=== PATIENT | female | born 1955 | race Caucasian/White ===

== ENCOUNTER 2017-04-26 10:00 | Outpatient (CLI) | payer BC | END 2017-04-26 10:24 | disposition home or self-care (01) | LOC: SLEEP 10:00 | PROVIDERS: ATTEND Nurse Practitioner Family | DX: G47.10 Hypersomnia, unspecified (principal); R53.83 Other fatigue; R43.9 Unspecified disturbances of smell and taste ==

== ENCOUNTER → 2017-04-27 | Outpatient (CLI) | payer BC ==
[~2017-04-27] MED LIST: CATHETER FLUSH 10 ML SYR IV PRN; IOHEXOL 350 MG/ML 100 ML (OMNIPAQUE 350) VIAL IV ONE; NS 100 ML (IVPB) BAG IV ONE
--- NOTE | 2017-04-27 09:37 | Diagnostic Imaging Report ---
Clinical indication: Patient has been smelling cigarette smoke x3 months. Patient and her family do not smoke. No history of trauma or surgery. Exam: Head CT performed without and with 80 cc of Omnipaque 350 IV contrast. Comparison: None. Findings: There is no evidence of acute cerebral infarct, intracranial hemorrhage, or gross mass effect. There is no abnormal IV contrast enhancement. There is normal smalls-white matter distinction. The brain parenchymal volume appears appropriate for patient's age. There is no significant midline shift or herniation. The com[place] of Michelle vascular structures show no gross abnormality as visualized. There is no evidence of hydrocephalus. The basal cisterns are unremarkable. The skull, extracranial soft tissue, and orbits are unremarkable. The paranasal sinuses are unremarkable. Impression: Unremarkable CT scan of the brain. There is no evidence of anterior skull base mass. Dictated by: Dictated on workstation # [id number]
== END ==
LOC: RAD 08:34
PROVIDERS: ATTEND Internal Medicine Critical Care Medicine
DX: R43.9 Unspecified disturbances of smell and taste (principal)
CPT/HCPCS: 70470

== ENCOUNTER → 2017-04-29 | Outpatient (CLI) | payer BC | LOC: RT 07:38 | PROVIDERS: ATTEND Internal Medicine Critical Care Medicine | DX: R43.9 Unspecified disturbances of smell and taste (principal); R53.83 Other fatigue | CPT/HCPCS: 95819 ==

== ENCOUNTER → 2017-05-02 | Outpatient (CLI) | payer BC ==
[~2017-05-02] MED LIST changes: -CATHETER FLUSH 10 ML SYR IV PRN; -IOHEXOL 350 MG/ML 100 ML (OMNIPAQUE 350) VIAL IV ONE; -NS 100 ML (IVPB) BAG IV ONE; +RT-ALBUTEROL SULF 2.5 MG/3 ML PRE-MIX VIAL IH ONE
== END ==
LOC: RT 07:47
PROVIDERS: ATTEND Internal Medicine Critical Care Medicine
DX: R06.00 Dyspnea, unspecified (principal); R53.83 Other fatigue; R43.9 Unspecified disturbances of smell and taste
CPT/HCPCS: 94060; 94640; 94726; 94729

== ENCOUNTER → 2017-06-07 | Outpatient (CLI) | payer BC ==
[~2017-06-07] MED LIST changes: +CATHETER FLUSH 10 ML SYR IV PRN; +IOHEXOL 350 MG/ML 100 ML (OMNIPAQUE 350) VIAL IV ONE; +NS 100 ML (IVPB) BAG IV ONE; -RT-ALBUTEROL SULF 2.5 MG/3 ML PRE-MIX VIAL IH ONE
--- NOTE | 2017-06-07 15:52 | Diagnostic Imaging Report ---
INDICATION: Olfactory hallucination. For the past approximately 7-8 weeks, smells cigarette smoke at least 6 times per day. TECHNIQUE: CT imaging of the sinuses both before and after the administration of intravenous contrast. FINDINGS: There is mild mucosal thickening along the floor of bilateral maxillary sinuses. Maximum thickness up to 5 mm. No air-fluid level. Trace mucosal thickening of the left aspect of sphenoid sinus. Minimal mucosal thickening of a few ethmoid air cells. There is mild rightward nasal septal deviation. Ostiomeatal complexes unobstructed. No suggestion for abnormal soft tissue mass within the nasal cavity. The orbital nunes including floors appear unremarkable. Orbits and retro-orbital structures appear symmetric. The cribriform plate and floor of the frontal calvarium appears unremarkable. Frontal sinuses are hypoplastic but overall clear. No definitive evidence for abnormal areas of enhancement. IMPRESSION: Mild mucosal thickening most pronounced involving the floor of bilateral maxillary sinuses. Trace areas of mucosal thickening in sphenoid sinus and ethmoid air cells. Otherwise relatively unremarkable CT examination of the sinus. No suggestion for abnormal areas of enhancement including along the floor of the frontal region intracranially. Dictated by: Dictated on workstation # [id number]
== END ==
LOC: RAD 11:30
PROVIDERS: ATTEND Family Medicine
DX: R44.2 Other hallucinations (principal)
CPT/HCPCS: 70488

== ENCOUNTER → 2018-05-16 | Outpatient (CLI) | payer BC ==
--- NOTE | 2018-05-16 12:00 | Diagnostic Imaging Report ---
INDICATION: Routine screening. COMPARISON: Comparison is made with prior mammograms from 05/14/2015 and 04/05/2014. TECHNIQUE: 2D and 3D bilateral screening mammography was performed with computer-aided detection (CAD) system. FINDINGS: Scattered fibroglandular densities are identified bilaterally. Bilateral benign nodular densities appear stable. No new mass or malignant appearing microcalcifications are seen. The axillae are unremarkable. IMPRESSION: No mammographic features suspicious for malignancy are identified. ACR BI-RADS Category 2: Benign findings. Result letter will be mailed to the patient. Note: At least 10% of breast cancer is not imaged by mammography. Dictated by: Dictated on workstation # [id number]
== END ==
LOC: RAD 07:56
PROVIDERS: ATTEND Family Medicine
DX: Z12.31 Encounter for screening mammogram for malignant neoplasm of breast (principal)
CPT/HCPCS: 77067

== ENCOUNTER 2019-03-01 05:57 | Outpatient (CLI) | payer BC ==
[~2019-03-01] VITALS: Ht 172.7 cm; Wt 102.1 kg
[2019-03-01] MEDS ORDERED: OMEG-141 PO (09:53)
[2019-03-01] MEDS ORDERED: LISI10TA2 PO (09:53)
[2019-03-01] MEDS ORDERED: ESCI20TA45 PO (09:53)
[2019-03-01] MEDS ORDERED: ALPR0.5T7 PO (09:53)
[2019-03-01] MEDS ORDERED: CALC600T12 PO (09:53)
[2019-03-01] MEDS ORDERED: CHOL10003 PO (09:53)
== END 2019-03-01 10:01 | disposition home or self-care (01) ==
LOC: PREOP 05:57
PROVIDERS: ATTEND Specialist
DX: Z01.818 Encounter for other preprocedural examination (principal)

== ENCOUNTER 2019-03-02 10:12 | Day surgery (SDC) | payer BC ==
[~2019-03-02] VITALS: Ht 172.7 cm; Wt 102.1 kg
[~2019-03-02 10:12] MED LIST changes: +ALPR0.5T7 PO; +CALC600T12 PO; -CATHETER FLUSH 10 ML SYR IV PRN; +CHOL10003 PO; +ESCI20TA45 PO; -IOHEXOL 350 MG/ML 100 ML (OMNIPAQUE 350) VIAL IV ONE; +LISI10TA2 PO; -NS 100 ML (IVPB) BAG IV ONE; +OMEG-141 PO
--- OUTSIDE RECORDS SUMMARY | 2019-03-02 10:19 | XMS REPORT | CCD ---
Author Author Verona Olivares Organization Verona Olivares MD, [facility] Address [address] [place] [address] Phone Care Team Providers Care Plastic Tubing Insulation Supervisor Name Role Phone Verona Olivares PP Unavailable CCM Unavailable Summary Purpose Interface Exchange Insurance Providers Payer name Policy type / Coverage type Covered alliance party ID Effective Begin Date Effective End Date [employer] [id number] Unknown Family history Mother Diagnosis Age At Onset No Family Disease Entered N/A Son Diagnosis Age At Onset No Family Disease Entered N/A Brother Diagnosis Age At Onset No Family Disease Entered N/A Sister Diagnosis Age At Onset No Family Disease Entered N/A Daughter Diagnosis Age At Onset No Family Disease Entered N/A Brother Diagnosis Age At Onset No Family Disease Entered N/A Father Diagnosis Age At Onset No Family Disease Entered N/A Social History Social History Element Codes Description Effective Dates Marital status Unknown 10/27/2011 Number of children Unknown 2 10/27/2011 Employment Unknown Currently employed 10/27/[address]: 032874140 Never smoker 10/27/[address]: 182144097 Never drinks alcohol 10/27/2011 Has the patient ever used illegal drugs? Unknown Has never used illegal drugs 10/27/2011 Allergies, Adverse Reactions, Alerts Substance Reaction Codes Entered Date Inactivated Date Status * NO KNOWN FOOD ALLERGIES Unknown 07/12/2012 No Inactive Date Active KENZIE INHIBITORS cough Unknown 06/07/2012 No Inactive Date Active Past Medical History Illness Codes Condition Status Onset Date Resolved Date Essential (primary) hypertension ICD-9: 401.1 ICD-10: I10 Active 05/11/2018 Unknown Major depressive disorder, recurrent, moderate ICD-9: 296.32 ICD-10: F33.1 Active 05/11/2018 Unknown Other acute sinusitis ICD-9: 461.8 ICD-10: J01.80 Active 02/05/2019 Unknown Other allergic rhinitis ICD-9: 477.8 ICD-10: J30.89 Active 09/26/2018 Unknown Acute upper respiratory infection, unspecified ICD-9: 465.9 ICD-10: J06.9 Active 08/28/2015 Unknown Cough ICD-9: 786.2 ICD-10: R05 Active 07/07/2016 Unknown Other insomnia ICD-9: 327.09 ICD-10: G47.09 Active 10/31/2018 Unknown Acute laryngopharyngitis ICD-9: 465.0 ICD-10: J06.0 Active 09/26/2018 Unknown Encounter for immunization ICD-9: V05.9 ICD-10: Z23 Active 06/27/2018 Unknown Generalized anxiety disorder ICD-9: 300.00 ICD-10: F41.1 Active 05/11/2018 Unknown Acute recurrent maxillary sinusitis ICD-9: 461.0 ICD-10: J01.01 Active 03/08/2017 Unknown Allergic rhinitis due to pollen ICD-9: 477.9 ICD-10: J30.1 Active 03/08/2017 Unknown Other hallucinations ICD-9: 780.1 ICD-10: R44.2 Active 03/08/2017 Unknown Cellulitis of right upper limb ICD-9: 682.3 ICD-10: L03.113 Active 09/05/2016 Unknown VACCIN FOR INFLUENZA ICD-9: V04.81 ICD-10: Z23 Active 07/29/2016 Unknown Fever, unspecified ICD -9: 780.60 ICD-10: R50.9 Active 07/07/2016 Unknown Pain, unspecified ICD- 9: 780.96 ICD-10: R52 Active 07/07/2016 Unknown Rash and other nonspecific skin eruption ICD-9: 782.1 ICD-10: R21 Active 01/13/2016 Unknown Bicipital tendinitis, left shoulder ICD-9: 726.12 ICD-10: M75.22 Active 11/16/2015 Unknown Pain in left shoulder ICD-9: 719.41 ICD-10: M25.512 Active 11/16/2015 Unknown Pain in right shoulder ICD-9: 719.41 ICD-10: M25.511 Active 11/16/2015 Unknown Epigastric pain ICD-9 : 789.06 ICD-10: R10.13 Active 08/28/2015 Unknown Other screening mammogram ICD-9: V76.12 Active 05/13/2015 Unknown ACUTE URI ICD-9: 465.9 Active 01/27/2015 Unknown ALLERGIC RHINITIS ICD- 9: 477.9 Active 01/27/2015 Unknown Left knee pain ICD-9: 719.46 Active 01/27/2015 Unknown Biceps tendinitis ICD- 9: 726.12 Active 08/05/2014 Unknown Elevated blood pressure (not hypertension) ICD-9: 796.2 Active 08/05/2014 Unknown Wrist pain, acute ICD- 9: 719.43 Active 08/05/2014 Unknown Acute maxillary sinusitis ICD-9: 461.0 Active 05/02/2014 Unknown ACUTE BRONCHITIS ICD-9 : 466.0 Active 07/17/2013 Unknown OBESITY ICD-9: 278.00 Active 10/30/2012 Unknown Hyperlipidemia Unknown Active 07/12/2012 Unknown HYPERLIPIDEMIA ICD-9: 272.4 Active 07/12/2012 Unknown Depression Unknown Active 06/07/2012 Unknown DEPRESSIVE DISORDER NEC ICD-9: 311 Active 06/07/2012 Unknown Palpitations ICD-9: 785.1 Active 06/07/2012 Unknown COUGH ICD-9: 786.2 Active 12/01/2011 Unknown Hypertension Unknown Active 11/09/2011 Unknown Changing mole ICD-9: 216.9 Active 11/09/2011 Unknown ESSENTIAL HYPERTENSION ICD-9: 401.9 Active 11/09/2011 Unknown Insomnia Unknown Active 10/27/2011 Unknown INSOMNIA IN OTHER DIS ICD-9: 327.01 Active 10/27/2011 Unknown Restless leg syndrome ICD-9: 333.94 Active 10/27/2011 Unknown Problems Condition Codes Effective Dates Condition Status Essential (primary) hypertension ICD-9: 401.1 ICD-10: I10 05/11/2018 Active Major depressive disorder, recurrent, moderate ICD-9: 296.32 ICD-10: F33.1 05/11/2018 Active Other acute sinusitis ICD-9: 461.8 ICD-10: J01.80 02/05/2019 Active Other allergic rhinitis ICD-9: 477.8 ICD-10: J30.89 09/26/2018 Active Acute upper respiratory infection, unspecified ICD-9: 465.9 ICD-10: J06.9 08/28/2015 Active Cough ICD-9: 786.2 ICD-10: R05 07/07/2016 Active Other insomnia ICD-9: 327.09 ICD-10: G47.09 10/31/2018 Active Acute laryngopharyngitis ICD-9: 465.0 ICD-10: J06.0 09/26/2018 Active Encounter for immunization ICD-9: V05.9 ICD-10: Z23 06/27/2018 Active Generalized anxiety disorder ICD-9: 300.00 ICD-10: F41.1 05/11/2018 Active Acute recurrent maxillary sinusitis ICD-9: 461.0 ICD-10: J01.01 03/08/2017 Active Allergic rhinitis due to pollen ICD-9: 477.9 ICD-10: J30.1 03/08/2017 Active Other hallucinations ICD-9: 780.1 ICD-10: R44.2 03/08/2017 Active Cellulitis of right upper limb ICD-9: 682.3 ICD-10: L03.113 09/05/2016 Active VACCIN FOR INFLUENZA ICD-9: V04.81 ICD-10: Z23 07/29/2016 Active Fever, unspecified ICD -9: 780.60 ICD-10: R50.9 07/07/2016 Active Pain, unspecified ICD- 9: 780.96 ICD-10: R52 07/07/2016 Active Rash and other nonspecific skin eruption ICD-9: 782.1 ICD-10: R21 01/13/2016 Active Bicipital tendinitis, left shoulder ICD-9: 726.12 ICD-10: M75.22 11/16/2015 Active Pain in left shoulder ICD-9: 719.41 ICD-10: M25.512 11/16/2015 Active Pain in right shoulder ICD-9: 719.41 ICD-10: M25.511 11/16/2015 Active Epigastric pain ICD-9 : 789.06 ICD-10: R10.13 08/28/2015 Active Other screening mammogram ICD-9: V76.12 05/13/2015 Active ACUTE URI ICD-9: 465.9 01/27/2015 Active ALLERGIC RHINITIS ICD- 9: 477.9 01/27/2015 Active Left knee pain ICD-9: 719.46 01/27/2015 Active Biceps tendinitis ICD- 9: 726.12 08/05/2014 Active Elevated blood pressure (not hypertension) ICD-9: 796.2 08/05/2014 Active Wrist pain, acute ICD- 9: 719.43 08/05/2014 Active Acute maxillary sinusitis ICD-9: 461.0 05/02/2014 Active ACUTE BRONCHITIS ICD-9 : 466.0 07/17/2013 Active OBESITY ICD-9: 278.00 10/30/2012 Active Hyperlipidemia Unknown 07/12/2012 Active HYPERLIPIDEMIA ICD-9: 272.4 07/12/2012 Active Depression Unknown 06/07/2012 Active DEPRESSIVE DISORDER NEC ICD-9: 311 06/07/2012 Active Palpitations ICD-9: 785.1 06/07/2012 Active COUGH ICD-9: 786.2 12/01/2011 Active Hypertension Unknown 11/09/2011 Active Changing mole ICD-9: 216.9 11/09/2011 Active ESSENTIAL HYPERTENSION ICD-9: 401.9 11/09/2011 Active Insomnia Unknown 10/27/2011 Active INSOMNIA IN OTHER DIS ICD-9: 327.01 10/27/2011 Active Restless leg syndrome ICD-9: 333.94 10/27/2011 Active Medications Medication Codes Instructions Start Date Stop Date Status Fill Instructions lisinopril 20 mg tablet RxNorm: 550153 1 Tablet(s) PO daily 05/23/2020 Active amoxicillin 500 mg capsule RxNorm: 135472 1 Capsule(s) PO TID 02/05/2019 02/14/2019 Inactive escitalopram 20 mg tablet RxNorm: 742577 1 Tablet(s) PO QPM 09/201905/25/2019 Active alprazolam 0.5 mg tablet RxNorm: 915263 Tablet(s) TAKE ONE-HALF TO ONE TABLET BY MOUTH EVERY 8 HOURS NEEDED 01/16/2019 01/30/2019 Inactive prednisone 20 mg tablet RxNorm: 722467 2 Tablet(s) PO daily 12/10/2018 Inactive Augmentin 875 mg-125 mg tablet RxNorm: 803502 1 Tablet(s) PO BID 12/11/2018 12/17/2018 Inactive Augmentin 875 mg-125 mg tablet RxNorm: 806182 1 Tablet(s) PO BID 12/11/2018 12/10/2018 Inactive prednisone 20 mg tablet RxNorm: 934894 2 Tablet(s) PO daily 12/13/2018 Inactive promethazine 6.25 mg-codeine 10 mg/5 mL syrup RxNorm: 988655 5-10 Milliliter(s) PO Q6 PRN 11/24/2018 No Stop Date Active Zithromax Z-Tomás 250 mg tablet RxNorm: 177110 1 Tablet(s) PO UD 11/24/2018 11/28/2018 Inactive Kenalog 40 mg/mL suspension for injection RxNorm: 7295860 Milliliter(s) Inj 11/24/2018 11/24/2018 Inactive lisinopril 10 mg tablet RxNorm: 932714 1 Tablet(s) PO daily 02/28/2019 Inactive doxepin 10 mg capsule RxNorm: 7731292 1 Capsule(s) PO QHS as needed insomnia 10/31/2018 01/28/2019 Inactive Kenalog 40 mg/mL suspension for injection RxNorm: 1164251 Milliliter(s) Inj 09/26/2018 09/26/2018 Inactive Augmentin 875 mg-125 mg tablet RxNorm: 324580 1 Tablet(s) PO BID 09/26/2018 10/05/2018 Inactive escitalopram 20 mg tablet RxNorm: 060274 1 Tablet(s) PO QPM 08/201801/22/2019 Inactive lisinopril 10 mg tablet RxNorm: 712369 1 Tablet(s) PO daily 02/201811/13/2018 Inactive escitalopram 10 mg tablet RxNorm: 275572 1 Tablet(s) PO QPM 06/26/2018 Inactive lisinopril 10 mg tablet RxNorm: 386307 1 Tablet(s) PO daily 06/20/2018 Inactive alprazolam 0.5 mg tablet RxNorm: 378429 TAKE ONE-HALF TO ONE TABLET BY MOUTH EVERY 6 HOURS NEEDED 09/20/20172018 Inactive Augmentin 875 mg-125 mg tablet RxNorm: 377800 1 Tablet(s) PO BID 03/08/2017 03/17/2017 Inactive alprazolam 0.5 mg tablet RxNorm: 683658 Tablet(s) PO Q6 as needed TAKE ONE-HALF TO ONE TABLET BY MOUTH EVERY 6 HOURS NEEDED 12/24/2016 01/22/2017 Inactive triamcinolone acetonide 0.5 % topical cream RxNorm: 4803552 1 Application TOP BID 09/06/2016 09/15/2016 Inactive Levaquin 500 mg tablet RxNorm: 016459 1 Tablet(s) PO daily 07/14/2016 Inactive please call her when ready Levaquin 500 mg tablet RxNorm: 258828 1 Tablet(s) PO daily 07/07/2016 Inactive alprazolam 0.5 mg tablet RxNorm: 906176 Tablet(s) PO Q6 as needed TAKE ONE-HALF TO ONE TABLET BY MOUTH EVERY 6 HOURS NEEDED 04/26/2016 12/23/2016 Inactive Generic For:*XANAX 0.5 MG TABLET 05/16/2013 1:18:18 PM (Appended: Controlled substance eRx refill - RxReferenceNumber: [id number]) alprazolam 0.5 mg tablet RxNorm: 563663 Tablet(s) PO Q6 as needed TAKE ONE-HALF TO ONE TABLET BY MOUTH EVERY 6 HOURS NEEDED 04/26/2016 09/19/2017 Inactive Generic For:*XANAX 0.5 MG TABLET 05/16/2013 1:18:18 PM (Appended: Controlled substance eRx refill - RxReferenceNumber: [id number]) betamethasone dipropionate 0.05 % topical cream RxNorm: 164406 1 TOP UD 1-2 x per day PRN 01/16/2016 No Stop Date Active Kenalog 40 mg/mL suspension for injection RxNorm: 5826992 Milliliter(s) Inj 01/14/2016 01/14/2016 Inactive prednisone 20 mg tablet RxNorm: 020951 2 Tablet(s) PO daily 01/18/2016 Inactive alprazolam 0.5 mg tablet RxNorm: 475330 Tablet(s) PO Q6 as needed TAKE ONE-HALF TO ONE TABLET BY MOUTH EVERY 6 HOURS NEEDED 09/26/2015 04/25/2016 Inactive Generic For:*XANAX 0.5 MG TABLET 05/16/2013 1:18:18 PM (Appended: Controlled substance eRx refill - RxReferenceNumber: [id number]) azithromycin 250 mg tablet RxNorm: 881310 1 Tablet(s) PO UD 2 pills day one and 1 pill day 2-5 08/29/2015 09/02/2015 Inactive Keflex 500 mg capsule RxNorm: 678087 1 Capsule(s) PO TID 201402/09/2015 Inactive take a probiotic while on the abt Keflex 500 mg capsule RxNorm: 010631 1 Capsule(s) PO TID 201402/02/2015 Inactive take a probiotic while on the abt hydrocodone 5 mg-acetaminophen 325 mg tablet RxNorm: 220191 1 Tablet(s) PO Q6 PRN 01/27/2015 08/16/2015 Inactive Kenalog 40 mg/mL suspension for injection RxNorm: 2814566 2 Milliliter(s) Inj 05/02/2014 05/02/2014 Inactive Zithromax Z-Tomás 250 mg tablet RxNorm: 727520 1 Tablet(s) PO QPM 05/02/2014 05/06/2014 Inactive Rocephin 500 mg solution for injection RxNorm: 630891 1 Milliliter(s) Inj 05/02/2014 05/02/2014 Inactive metoprolol tartrate 25 mg tablet RxNorm: 711691 1/2 Tablet(s) PO BID TAKE ONE- HALF TABLET BY MOUTH TWICE DAILY 11/05/2013 02/03/2014 Inactive vilazodone 40 mg tablet RxNorm: 2314955 1 Tablet(s) PO daily 02/03/2014 Inactive Zithromax Z-Tomás 250 mg tablet RxNorm: 205219 Tablet(s) PO 07/1711/04/2013 Inactive Rocephin 500 mg Solution for Injection RxNorm: 1424465 Inj 10/201207/17/2013 Inactive Kenalog 40 mg/mL Susp for Injection RxNorm: 7913556 1 Milliliter(s) Inj 06/07/2013 06/07/2013 Inactive alprazolam 0.5 mg tablet RxNorm: 643888 1/2-1 Tablet(s) PO Q6 PRN 05/17/2013 No Stop Date Active alprazolam 0.5 mg tablet RxNorm: 198885 Tablet(s) PO TAKE ONE-HALF TO ONE TABLET BY MOUTH EVERY 6 HOURS NEEDED 05/17/2013 09/25/2015 Inactive Generic For:*XANAX 0.5 MG TABLET 05/16/2013 1:18:18 PM (Appended: Controlled substance [facility]ill [id number]) metoprolol tartrate 25 mg tablet RxNorm: 888940 Tablet(s) PO TAKE ONE-HALF TABLET BY MOUTH TWICE DAILY 02/12/20132013 Inactive metoprolol tartrate 25 mg tablet RxNorm: 253778 1/2 Tablet(s) PO BID 01/29/2013 02/28/2019 Inactive alprazolam 0.5 mg tablet RxNorm: 323118 1/2-1 Tablet(s) PO Q6 PRN 11/28/2012 05/17/2013 Inactive lisinopril 10 mg tablet RxNorm: 420754 1 Tablet(s) PO daily 01/28/2013 Inactive vilazodone 40 mg tablet RxNorm: 8863837 1 Tablet(s) PO daily 02/03/2013 Inactive metoprolol tartrate 25 mg tablet RxNorm: 214734 1/2 Tablet(s) PO BID 06/07/2012 10/04/2012 Inactive amoxicillin-potassium clavulanate 500 mg-125 mg tablet RxNorm: 199054 1 Tablet(s) PO TID 06/07/2012 06/13/2012 Inactive Ambien 5 mg tablet RxNorm: 670185 1 Tablet(s) PO HS PRN 05/0205/31/2012 Inactive lisinopril 10 mg tablet RxNorm: 099967 1 Tablet(s) PO daily 06/05/2012 Inactive pramipexole 0.5 mg Tab RxNorm: 650191 1/2 Tablet(s) PO QHS 01/29/2012 Inactive pramipexole 0.5 mg Tab RxNorm: 444790 1 Tablet(s) PO QHS 201110/31/2011 Inactive Fish Oil 1,200 mg-144 mg-216 mg Cap RxNorm: 1 Capsule(s) PO daily No Start Date Active potassium 99 mg Tab RxNorm: 1 Tablet(s) PO daily No Start Date 10/29/2012 Inactive betamethasone dipropionate 0.05 % topical cream RxNorm: 840878 1 TOP UD 1-2 x per day PRN No Start Date 01/15/2016 Inactive alprazolam 0.5 mg tablet RxNorm: 673606 1/2-1 Tablet(s) PO Q6 PRN No Start Date 11/27/2012 Inactive Ambien 5 mg tablet RxNorm: 391711 1 Tablet(s) PO HS PRN No Start Date 05/01/2012 Inactive calcium & magnesium carbonates 311 mg-232 mg Tab RxNorm: 254992 1 Tablet(s) PO BID No Start Date 10/29/2012 Inactive multivitamin Tab RxNorm: 1 Tablet(s) PO daily No Start Date 10/29/2012 Inactive vilazodone 40 mg tablet RxNorm: 5488814 1 Tablet(s) PO daily No Start Date 08/07/2012 Inactive Zithromax Z-Tomás 250 mg tablet RxNorm: 017946 Tablet(s) PO No Start Date 07/16/2013 Inactive Medication Administered Medication Codes Instructions Start Date Status Kenalog 40 mg/mL suspension for injection RxNorm: 2405878 Milliliter 11/24/2018 No longer Active Kenalog 40 mg/mL suspension for injection RxNorm: 9229815 Milliliter 09/26/2018 No longer Active Kenalog 40 mg/mL suspension for injection RxNorm: 2916087 Milliliter 01/14/2016 No longer Active Kenalog 40 mg/mL suspension for injection RxNorm: 7831197 2Milliliter 05/02/2014 No longer Active Rocephin 500 mg solution for injection RxNorm: 423526 1Milliliter 05/02/2014 No longer Active Rocephin 500 mg Solution for Injection RxNorm: 0756908 07/17/2013 No longer Active Kenalog 40 mg/mL Susp for Injection RxNorm: 0063167 1Milliliter 06/07/2013 No longer Active Immunizations Vaccine Codes Date Status Influenza CVX: 141 06/27/2018 completed Influenza CVX: 141 07/30/2016 completed Influenza CVX: 141 07/23/2015 completed Influenza CVX: 141 07/26/2013 completed Assessments Condition Codes Effective Dates Essential (primary) hypertension ICD-10: I10 ICD-9: 401.1 03/01/2019 Major depressive disorder, recurrent, moderate ICD-10: F33.1 ICD-9: 296.32 03/01/2019 Other allergic rhinitis ICD-10: J30.89 ICD-9: 477.8 02/05/2019 Other acute sinusitis ICD-10: J01.80 ICD-9: 461.8 02/05/2019 Cough ICD-10: R05 ICD-9: 786.2 11/24/2018 Acute upper respiratory infection, unspecified ICD-10: J06.9 ICD-9: 465.9 11/24/2018 Other insomnia ICD-10: G47.09 ICD-9: 327.09 10/31/2018 Acute laryngopharyngitis ICD-10: J06.0 ICD-9: 465.0 09/26/2018 Generalized anxiety disorder ICD-10: F41.1 ICD-9: 300.00 06/27/2018 Encounter for immunization ICD-10: Z23 ICD-9: V05.9 06/27/2018 Other hallucinations ICD-10: R44.2 ICD-9: 780.1 03/08/2017 Acute recurrent maxillary sinusitis ICD-10: J01.01 ICD-9: 461.0 03/08/2017 Allergic rhinitis due to pollen ICD-10: J30.1 ICD-9: 477.9 03/08/2017 Cellulitis of right upper limb ICD-10: L03.113 ICD-9: 682.3 09/06/2016 VACCIN FOR INFLUENZA ICD-10: Z23 ICD-9: V04.81 07/30/2016 Pain, unspecified ICD-10: R52 ICD-9: 780.96 07/08/2016 Fever, unspecified ICD-10: R50.9 ICD-9: 780.60 07/08/2016 Rash and other nonspecific skin eruption ICD-10: R21 ICD-9: 782.1 01/14/2016 Pain in left shoulder ICD-10: M25.512 ICD-9: 719.41 11/17/2015 Bicipital tendinitis, left shoulder ICD-10: M75.22 ICD-9: 726.12 11/17/2015 Pain in right shoulder ICD-10: M25.511 ICD-9: 719.41 11/17/2015 Epigastric pain ICD-10: R10.13 ICD-9: 789.06 08/29/2015 Other screening mammogram ICD-9: V76.12 05/14/2015 ACUTE URI ICD-9: 465.9 01/27/2015 ALLERGIC RHINITIS ICD-9: 477.9 2014 Left knee pain ICD-9: 719.46 01/27/2015 Elevated blood pressure (not hypertension) ICD-9: 796.2 08/05/2014 Biceps tendinitis ICD-9: 726.12 2013 Wrist pain, acute ICD-9: 719.43 2013 Acute maxillary sinusitis ICD-9: 461.0 INSOMNIA IN OTHER DIS ICD-9: 327.01 02/04 DEPRESSIVE DISORDER NEC ICD-9: 311 2013 ESSENTIAL HYPERTENSION SNOMED: 94463364 ICD-9: 401.9 11/05/2013 ACUTE BRONCHITIS ICD-9: 466.0 07/17/2013 COUGH ICD-9: 786.2 06/07/2013 OBESITY ICD-9: 278.00 10/30/2012 HYPERLIPIDEMIA ICD-9: 272.4 07/12/2012 Palpitations ICD-9: 785.1 06/07/2012 Changing mole ICD-9: 216.9 11/09/2011 Restless leg syndrome ICD-9: 333.94 10/27 Reason For Visit Reason For Visit Effective Dates Notes hypertension 03/01/2019 sinus congestion 02/05/2019 sinus congestion 11/24/2018 hypertension 10/31/2018 sinus congestion 09/26/2018 hypertension 06/27/2018 hypertension 05/11/2018 ~generic 03/08/2017 phantosmia pruritus 09/06/2016 vaccination against influenza 07/30/2016 fever 07/08/2016 rash 01/14/2016 shoulder pain 11/17/2015 cough 08/29/2015 vaccination against influenza 07/23/2015 knee pain 01/27/2015 hypertension 08/05/2014 l sinus congestion 05/02/2014 hypertension 02/04/2014 hypertension 11/05/2013 sore throat 07/17/2013 sore throat 06/07/2013 hypertension 04/30/2013 hypertension 01/29/2013 hypertension 10/30/2012 hypertension 07/12/2012 hypertension 06/07/2012 hypertension 12/01/2011 hypertension 11/18/2011 blood pressure followup 11/09/2011 insomnia 10/27/2011 Results Observation Observation Code Item Item Code Result Date Influenza A+B Erl429 Influ A+B Negative 07/08/2016 Cbc With Differential Ord2 WBC 16.40 K/ul 07/08/2016 Cbc With Differential Ord2 RBC 4.01 M/ul 07/08/2016 Cbc With Differential Ord2 HGB 11.9 g/dl 07/08/2016 Cbc With Differential Ord2 HCT 35.9 % 07/08/2016 Cbc With Differential Ord2 Neut% 85.8 % 07/08/2016 Cbc With Differential Ord2 MCV 89.5 fl 07/08/2016 Cbc With Differential Ord2 Lymph% 7.3 % 07/08/2016 Cbc With Differential Ord2 MCH 29.7 pg 07/08/2016 Cbc With Differential Ord2 Burnett% 6.8 % 07/08/2016 Cbc With Differential Ord2 MCHC 33.1 pg 07/08/2016 Cbc With Differential Ord2 Eos% 0.0 % 07/08/2016 Cbc With Differential Ord2 PLT 273 K/ul 07/08/2016 Cbc With Differential Ord2 Baso% 0.1 % 07/08/2016 Cbc With Differential Ord2 RDW 13.6 % 07/08/2016 Cbc With Differential Ord2 Neut ABS# 14.08 K/ul 07/08/2016 Cbc With Differential Ord2 Lymph ABS# 1.19 K/ul 07/08/2016 Cbc With Differential Ord2 Burnett ABS# 1.1 K/ul 07/08/2016 Cbc With Differential Ord2 Eos ABS# 0.0 K/ul 07/08/2016 Cbc With Differential Ord2 Baso ABS# 0.0 K/ul 07/08/2016 Comp Metabolic Gcj073 NA 134 mEq/L 07/08/2016 Comp Metabolic Rlz405 K 3.9 mEq/L 07/08/2016 Comp Metabolic Asg892 CL 101 mEq/L 07/08/2016 Comp Metabolic Lqn292 CO2 27.0 mEq/L 07/08/2016 Comp Metabolic Wjk379 ANION GAP 10 07/08/2016 Comp Metabolic Zwx257 GLUCOSE 120 mg/dL 07/08/2016 Comp Metabolic Hfe324 Creat 0.9 mg/dL 07/08/2016 Comp Metabolic Jos714 eGFR 71 ml/min/1.73m2 07/08/2016 Comp Metabolic Qkx205 BUN 16 mg/dL 07/08/2016 Comp Metabolic Ewe922 B/C Ratio 18.4 Ratio 07/08/2016 Comp Metabolic Mvl443 CALCIUM 10.0 mg/dL 07/08/2016 Comp Metabolic Wef800 ALK PHOS 57 U/L 07/08/2016 Comp Metabolic Nlh048 AST(SGOT) 21 U/L 07/08/2016 Comp Metabolic Gcq894 ALT(SGPT) 20 U/L 07/08/2016 Comp Metabolic Zty357 BILI T 1.1 mg/dL 07/08/2016 Comp Metabolic Pjj929 ALBUMIN 3.9 g/dL 07/08/2016 Comp Metabolic Nbu882 TPRO 6.2 g/dL 07/08/2016 Comp Metabolic Nzx138 GLOB 2.4 g/dL 07/08/2016 Comp Metabolic Vlc111 A/G Ratio 1.6 Ratio 07/08/2016 Comp Metabolic Ngk698 Osmo 271 mOsmo 07/08/2016 Comp Metabolic Kvm180 NA 130 mEq/L 08/29/2015 Comp Metabolic Lyw936 K 4.0 mEq/L 08/29/2015 Comp Metabolic Dwy101 CL 99 mEq/L 08/29/2015 Comp Metabolic Cfk254 CO2 21.0 mEq/L 08/29/2015 Comp Metabolic Lsi130 ANION GAP 14 08/29/2015 Comp Metabolic Obp397 GLUCOSE 105 mg/dL 08/29/2015 Comp Metabolic Zil465 Creat 1.0 mg/dL 08/29/2015 Comp Metabolic Sgf622 eGFR 62 ml/min/1.73m2 08/29/2015 Comp Metabolic Qpp752 BUN 8 mg/dL 08/29/2015 Comp Metabolic Ujr965 B/C Ratio 8.2 Ratio 08/29/2015 Comp Metabolic Aib927 CALCIUM 9.9 mg/dL 08/29/2015 Comp Metabolic Ajr352 ALK PHOS 93 U/L 08/29/2015 Comp Metabolic Jio202 AST(SGOT) 16 U/L 08/29/2015 Comp Metabolic Tan092 ALT(SGPT) 22 U/L 08/29/2015 Comp Metabolic Ywn317 BILI T 0.6 mg/dL 08/29/2015 Comp Metabolic Xrl715 ALBUMIN 4.3 g/dL 08/29/2015 Comp Metabolic Yxk308 TPRO 6.7 g/dL 08/29/2015 Comp Metabolic Csj764 GLOB 2.4 g/dL 08/29/2015 Comp Metabolic Eoz572 A/G Ratio 1.8 Ratio 08/29/2015 Comp Metabolic Wjj277 Osmo 259 mOsmo 08/29/2015 Cbc With Differential Ord2 WBC 7.9 K/uL 08/29/2015 Cbc With Differential Ord2 LYM 2.4 K/uL 08/29/2015 Cbc With Differential Ord2 LYM% 29.9 % 08/29/2015 Cbc With Differential Ord2 NEUT/GRAN 4.9 K/uL 08/29/2015 Cbc With Differential Ord2 NEUT/GRAN % 61.9 % 08/29/2015 Cbc With Differential Ord2 MID 0.6 K/uL 08/29/2015 Cbc With Differential Ord2 MID% 8.2 % 08/29/2015 Cbc With Differential Ord2 RBC 4.08 M/uL 08/29/2015 Cbc With Differential Ord2 HGB 11.3 g/dL 08/29/2015 Cbc With Differential Ord2 HCT 35.5 % 08/29/2015 Cbc With Differential Ord2 MCV 87 fL 08/29/2015 Cbc With Differential Ord2 MCH 28 pg 08/29/2015 Cbc With Differential Ord2 MCHC 32 g/dL 08/29/2015 Cbc With Differential Ord2 PLT 375 K/uL 08/29/2015 Cbc With Differential Ord2 RDW 13.5 % 08/29/2015 Review of Systems System Result Effective Dates Constitutional No recent illness 2018 Constitutional No anorexia 03/01/2019 Constitutional No night sweats 2018 Constitutional No chills 03/01/2019 Constitutional No diaphoresis 03/01/2019 Constitutional fatigue 03/01/2019 Constitutional No fever 03/01/2019 Constitutional insomnia 03/01/2019 Eyes No eye discharge 03/01/2019 Eyes No eye erythema 03/01/2019 Ears/Nose/Throat/Neck No dizziness 2018 Ears/Nose/Throat/Neck No headache 2018 Cardiovascular fatigue 03/01/2019 Cardiovascular hypertension 03/01/2019 Respiratory No productive sputum 2018 Respiratory No chest congestion 2018 Respiratory No cough 03/01/2019 Gastrointestinal No abdominal pain 2018 Gastrointestinal No constipation 2018 Gastrointestinal No diarrhea 03/01/2019 Gastrointestinal No nausea 03/01/2019 Gastrointestinal No vomiting 03/01/2019 Musculoskeletal No joint complaint 2018 Psychiatric No anxiety 03/01/2019 Psychiatric No depression 03/01/2019 Neurologic No ataxia 03/01/2019 Dermatologic No rash 03/01/2019 Dermatologic No sores 03/01/2019 Constitutional recent illness 02/05/2019 Constitutional No chills 02/05/2019 Constitutional No diaphoresis 02/05/2019 Constitutional No fever 02/05/2019 Eyes No eye erythema 02/05/2019 Ears/Nose/Throat/Neck nasal allergies Ears/Nose/Throat/Neck nasal discharge Ears/Nose/Throat/Neck postnasal drip Ears/Nose/Throat/Neck sinus congestion Ears/Nose/Throat/Neck No sore throat Cardiovascular No chest pain/pressure Cardiovascular No dyspnea 02/05/2019 Respiratory No chest congestion 2018 Respiratory cough 02/05/2019 Respiratory No dyspnea 02/05/2019 Gastrointestinal No abdominal pain 2018 Gastrointestinal No constipation 2018 Gastrointestinal No diarrhea 02/05/2019 Gastrointestinal No nausea 02/05/2019 Gastrointestinal No vomiting 02/05/2019 Dermatologic No rash 02/05/2019 Neurologic No alteration of consciousness 02/05/2019 Neurologic No mental status change 2018 Constitutional recent illness 11/24/2018 Constitutional No anorexia 11/24/2018 Constitutional No night sweats 2018 Constitutional No chills 11/24/2018 Constitutional No diaphoresis 11/24/2018 Constitutional fatigue 11/24/2018 Constitutional No fever 11/24/2018 Constitutional No insomnia 11/24/2018 Constitutional No malaise 11/24/2018 Constitutional No weight loss 11/24/2018 Constitutional No weight gain 11/24/2018 Eyes No eye erythema 11/24/2018 Eyes No eye discharge 11/24/2018 Ears/Nose/Throat/Neck nasal allergies 05/2019 Ears/Nose/Throat/Neck nasal discharge 05/2019 Ears/Nose/Throat/Neck No otalgia 2018 Ears/Nose/Throat/Neck No sinus congestion 11/24/2018 Ears/Nose/Throat/Neck No sore throat 05/2019 Cardiovascular No chest pain/pressure 05/2019 Respiratory productive sputum 11/24/2018 Respiratory cough 11/24/2018 Respiratory chest congestion 11/24/2018 Gastrointestinal No vomiting 11/24/2018 Gastrointestinal No nausea 11/24/2018 Gastrointestinal No diarrhea 11/24/2018 Genitourinary/Nephrology No dysuria 11/24 Musculoskeletal No joint complaint 2018 Dermatologic No rash 11/24/2018 Neurologic No alteration of consciousness 11/24/2018 Constitutional No recent illness 2018 Constitutional No anorexia 10/31/2018 Constitutional No night sweats 2018 Constitutional No chills 10/31/2018 Constitutional No diaphoresis 10/31/2018 Constitutional fatigue 10/31/2018 Constitutional No fever 10/31/2018 Constitutional insomnia 10/31/2018 Eyes No eye discharge 10/31/2018 Eyes No eye erythema 10/31/2018 Ears/Nose/Throat/Neck No dizziness 2018 Ears/Nose/Throat/Neck No headache 2018 Cardiovascular fatigue 10/31/2018 Cardiovascular hypertension 10/31/2018 Respiratory No productive sputum 2018 Respiratory No chest congestion 2018 Respiratory No cough 10/31/2018 Gastrointestinal No abdominal pain 2018 Gastrointestinal No constipation 2018 Gastrointestinal No diarrhea 10/31/2018 Gastrointestinal No nausea 10/31/2018 Gastrointestinal No vomiting 10/31/2018 Musculoskeletal No joint complaint 2018 Psychiatric anxiety 10/31/2018 Psychiatric depression 10/31/2018 Constitutional recent illness 09/26/2018 Constitutional No chills 09/26/2018 Constitutional No diaphoresis 09/26/2018 Eyes No eye erythema 09/26/2018 Ears/Nose/Throat/Neck nasal allergies 08/2018 Ears/Nose/Throat/Neck nasal discharge 08/2018 Ears/Nose/Throat/Neck postnasal drip 08/2018 Ears/Nose/Throat/Neck sinus congestion Ears/Nose/Throat/Neck sore throat 2017 Cardiovascular No chest pain/pressure 08/2018 Cardiovascular No dyspnea 09/26/2018 Respiratory No chest congestion 2017 Respiratory cough 09/26/2018 Respiratory No dyspnea 09/26/2018 Gastrointestinal No constipation 2017 Gastrointestinal No diarrhea 09/26/2018 Gastrointestinal No nausea 09/26/2018 Gastrointestinal No vomiting 09/26/2018 Dermatologic No rash 09/26/2018 Neurologic No alteration of consciousness 09/26/2018 Neurologic No mental status change 2017 Constitutional No fever 09/26/2018 Constitutional No recent illness 2017 Constitutional No anorexia 06/27/2018 Constitutional No night sweats 2017 Constitutional No chills 06/27/2018 Constitutional No diaphoresis 06/27/2018 Constitutional fatigue 06/27/2018 Constitutional No fever 06/27/2018 Constitutional insomnia 06/27/2018 Eyes No eye discharge 06/27/2018 Eyes No eye erythema 06/27/2018 Ears/Nose/Throat/Neck No dizziness 2017 Ears/Nose/Throat/Neck No headache 2017 Cardiovascular fatigue 06/27/2018 Cardiovascular hypertension 06/27/2018 Respiratory No productive sputum 2017 Respiratory No chest congestion 2017 Respiratory No cough 06/27/2018 Gastrointestinal No abdominal pain 2017 Gastrointestinal No constipation 2017 Gastrointestinal No diarrhea 06/27/2018 Gastrointestinal No nausea 06/27/2018 Gastrointestinal No vomiting 06/27/2018 Musculoskeletal No joint complaint 2017 Psychiatric anxiety 06/27/2018 Psychiatric depression 06/27/2018 Constitutional No recent illness 2017 Constitutional No anorexia 05/11/2018 Constitutional No night sweats 2017 Constitutional No chills 05/11/2018 Constitutional No diaphoresis 05/11/2018 Constitutional fatigue 05/11/2018 Constitutional No fever 05/11/2018 Constitutional insomnia 05/11/2018 Eyes No eye discharge 05/11/2018 Eyes No eye erythema 05/11/2018 Ears/Nose/Throat/Neck No dizziness 2017 Ears/Nose/Throat/Neck No headache 2017 Ears/Nose/Throat/Neck No nasal allergies 05/11/2018 Ears/Nose/Throat/Neck No nasal discharge 05/11/2018 Ears/Nose/Throat/Neck No sore throat Respiratory No productive sputum 2017 Respiratory No chest congestion 2017 Respiratory No cough 05/11/2018 Gastrointestinal No abdominal pain 2017 Gastrointestinal No constipation 2017 Gastrointestinal No diarrhea 05/11/2018 Gastrointestinal No nausea 05/11/2018 Gastrointestinal No vomiting 05/11/2018 Genitourinary/Nephrology No dysuria 05/11 Musculoskeletal No joint complaint 2017 Dermatologic No rash 05/11/2018 Dermatologic No sores 05/11/2018 Cardiovascular hypertension 05/11/2018 Cardiovascular fatigue 05/11/2018 Psychiatric anxiety 05/11/2018 Psychiatric depression 05/11/2018 Constitutional No recent illness 2016 Constitutional No anorexia 03/08/2017 Constitutional No night sweats 2016 Constitutional No chills 03/08/2017 Constitutional No diaphoresis 03/08/2017 Constitutional No fatigue 03/08/2017 Constitutional No fever 03/08/2017 Constitutional No insomnia 03/08/2017 Constitutional No malaise 03/08/2017 Constitutional No weight loss 03/08/2017 Constitutional No weight gain 03/08/2017 Eyes No eye discharge 03/08/2017 Eyes No eye erythema 03/08/2017 Ears/Nose/Throat/Neck nasal allergies Ears/Nose/Throat/Neck nasal discharge Ears/Nose/Throat/Neck No dizziness 2016 Ears/Nose/Throat/Neck headache 2016 Ears/Nose/Throat/Neck No otalgia 2016 Ears/Nose/Throat/Neck No sore throat Cardiovascular No chest pain/pressure Cardiovascular No dyspnea 03/08/2017 Cardiovascular No edema 03/08/2017 Respiratory No cough 03/08/2017 Gastrointestinal No abdominal pain 2016 Gastrointestinal No constipation 2016 Gastrointestinal No diarrhea 03/08/2017 Genitourinary/Nephrology No dysuria 03/08 Musculoskeletal No joint complaint 2016 Dermatologic No rash 03/08/2017 Neurologic No alteration of consciousness 03/08/2017 Constitutional No recent illness 2015 Constitutional No anorexia 09/06/2016 Constitutional No night sweats 2015 Constitutional No chills 09/06/2016 Constitutional No diaphoresis 09/06/2016 Constitutional No fatigue 09/06/2016 Constitutional No fever 09/06/2016 Constitutional insomnia 09/06/2016 Constitutional No malaise 09/06/2016 Constitutional No weight loss 09/06/2016 Constitutional No weight gain 09/06/2016 Constitutional No obesity 09/06/2016 Eyes No vision change 09/06/2016 Eyes No eye pain 09/06/2016 Ears/Nose/Throat/Neck No dizziness 2015 Ears/Nose/Throat/Neck No headache 2015 Cardiovascular No chest pain/pressure Cardiovascular No dyspnea 09/06/2016 Respiratory No chest tightness 2015 Respiratory No dyspnea 09/06/2016 Gastrointestinal No abdominal pain 2015 Gastrointestinal No nausea 09/06/2016 Gastrointestinal No vomiting 09/06/2016 Genitourinary/Nephrology No dysuria 09/06 Genitourinary/Nephrology No anuria/oliguria 09/06/2016 Musculoskeletal stiffness 09/06/2016 Dermatologic rash 09/06/2016 Dermatologic No sores 09/06/2016 Neurologic No dizziness 09/06/2016 Neurologic No alteration of consciousness 09/06/2016 Psychiatric No anxiety 09/06/2016 Psychiatric No depression 09/06/2016 Hematologic/Lymphatic No abnormal ecchymoses 09/06/2016 Hematologic/Lymphatic No abnormal bleeding and bruising 09/06/2016 Constitutional recent illness 07/08/2016 Constitutional anorexia 07/08/2016 Constitutional night sweats 07/08/2016 Constitutional chills 07/08/2016 Constitutional diaphoresis 07/08/2016 Constitutional fatigue 07/08/2016 Constitutional fever 07/08/2016 Constitutional insomnia 07/08/2016 Constitutional malaise 07/08/2016 Constitutional weight loss 07/08/2016 Constitutional No weight gain 07/08/2016 Eyes No eye discharge 07/08/2016 Eyes No eye erythema 07/08/2016 Ears/Nose/Throat/Neck No dizziness 2015 Ears/Nose/Throat/Neck headache 2015 Ears/Nose/Throat/Neck nasal discharge Ears/Nose/Throat/Neck otalgia 07/08/2016 Ears/Nose/Throat/Neck No sinus congestion 07/08/2016 Ears/Nose/Throat/Neck No sore throat Cardiovascular No chest pain/pressure Respiratory No productive sputum 2015 Respiratory cough 07/08/2016 Respiratory pleuritic pain 07/08/2016 Gastrointestinal No abdominal pain 2015 Gastrointestinal nausea 07/08/2016 Gastrointestinal vomiting 07/08/2016 Genitourinary/Nephrology No dysuria 07/08 Musculoskeletal myalgias 07/08/2016 Dermatologic No rash 07/08/2016 Dermatologic No sores 07/08/2016 Neurologic No alteration of consciousness 07/08/2016 Constitutional No recent illness 2015 Constitutional No night sweats 2015 Constitutional No chills 01/14/2016 Constitutional No diaphoresis 01/14/2016 Constitutional No fatigue 01/14/2016 Constitutional No fever 01/14/2016 Constitutional No insomnia 01/14/2016 Dermatologic rash 01/14/2016 Neurologic No alteration of consciousness 01/14/2016 Eyes No eye erythema 01/14/2016 Ears/Nose/Throat/Neck No nasal allergies 01/14/2016 Ears/Nose/Throat/Neck No nasal discharge 01/14/2016 Cardiovascular No chest pain/pressure Respiratory No cough 01/14/2016 Respiratory No chest congestion 2015 Gastrointestinal No abdominal pain 2015 Constitutional No recent illness 2015 Constitutional No anorexia 11/17/2015 Constitutional No night sweats 2015 Constitutional No chills 11/17/2015 Constitutional No diaphoresis 11/17/2015 Constitutional No fatigue 11/17/2015 Constitutional No fever 11/17/2015 Constitutional No insomnia 11/17/2015 Musculoskeletal shoulder pain 11/17/2015 Dermatologic No rash 11/17/2015 Dermatologic No sores 11/17/2015 Neurologic No alteration of consciousness 11/17/2015 Neurologic No paresthesia 11/17/2015 Constitutional recent illness 08/29/2015 Constitutional No chills 08/29/2015 Constitutional No diaphoresis 08/29/2015 Constitutional No insomnia 08/29/2015 Constitutional No malaise 08/29/2015 Eyes No eye discharge 08/29/2015 Eyes No eye erythema 08/29/2015 Ears/Nose/Throat/Neck No dizziness 2014 Ears/Nose/Throat/Neck nasal allergies Ears/Nose/Throat/Neck nasal discharge Ears/Nose/Throat/Neck No otalgia 2014 Ears/Nose/Throat/Neck sore throat 2014 Cardiovascular No chest pain/pressure Respiratory productive sputum 08/29/2015 Respiratory No chest congestion 2014 Respiratory cough 08/29/2015 Gastrointestinal abdominal pain 2014 Gastrointestinal No constipation 2014 Gastrointestinal No diarrhea 08/29/2015 Dermatologic No rash 08/29/2015 Dermatologic No sores 08/29/2015 Ears/Nose/Throat/Neck sinus congestion Ears/Nose/Throat/Neck postnasal drip Ears/Nose/Throat/Neck No hoarseness 08/29 Constitutional recent illness 01/27/2015 Constitutional No anorexia 01/27/2015 Constitutional No chills 01/27/2015 Constitutional No night sweats 2014 Constitutional No diaphoresis 01/27/2015 Constitutional No fatigue 01/27/2015 Constitutional No fever 01/27/2015 Constitutional No insomnia 01/27/2015 Constitutional No malaise 01/27/2015 Constitutional No weight loss 01/27/2015 Constitutional No weight gain 01/27/2015 Eyes No eye discharge 01/27/2015 Eyes No eye erythema 01/27/2015 Ears/Nose/Throat/Neck nasal allergies Ears/Nose/Throat/Neck nasal discharge Ears/Nose/Throat/Neck No dizziness 2014 Ears/Nose/Throat/Neck No otalgia 2014 Ears/Nose/Throat/Neck sore throat 2014 Cardiovascular No chest pain/pressure Respiratory No productive sputum 2014 Respiratory No chest congestion 2014 Respiratory cough 01/27/2015 Gastrointestinal No abdominal pain 2014 Gastrointestinal No constipation 2014 Gastrointestinal No diarrhea 01/27/2015 Genitourinary/Nephrology No dysuria 01/27 Musculoskeletal joint complaint 2014 Dermatologic No rash 01/27/2015 Dermatologic No sores 01/27/2015 Constitutional insomnia 08/05/2014 Constitutional fatigue 08/05/2014 Constitutional No recent illness 2013 Cardiovascular No chest pain/pressure Cardiovascular No dyspnea 08/05/2014 Cardiovascular No edema 08/05/2014 Respiratory No chest congestion 2013 Gastrointestinal No constipation 2013 Gastrointestinal No diarrhea 08/05/2014 Musculoskeletal stiffness 08/05/2014 Musculoskeletal shoulder pain 08/05/2014 Psychiatric No anxiety 08/05/2014 Psychiatric No depression 08/05/2014 Dermatologic No rash 08/05/2014 Dermatologic No scar 08/05/2014 Constitutional No anorexia 08/05/2014 Constitutional No night sweats 2013 Constitutional No chills 08/05/2014 Constitutional No diaphoresis 08/05/2014 Constitutional No fever 08/05/2014 Eyes No eye discharge 08/05/2014 Eyes No eye erythema 08/05/2014 Ears/Nose/Throat/Neck No dizziness 2013 Ears/Nose/Throat/Neck No headache 2013 Ears/Nose/Throat/Neck No nasal allergies 08/05/2014 Ears/Nose/Throat/Neck No nasal discharge 08/05/2014 Ears/Nose/Throat/Neck No sore throat Respiratory No productive sputum 2013 Respiratory No cough 08/05/2014 Gastrointestinal No abdominal pain 2013 Gastrointestinal No nausea 08/05/2014 Gastrointestinal No vomiting 08/05/2014 Genitourinary/Nephrology No dysuria 08/05 Musculoskeletal No joint complaint 2013 Dermatologic No sores 08/05/2014 Constitutional recent illness 05/02/2014 Constitutional No anorexia 05/02/2014 Constitutional No night sweats 2013 Constitutional chills 05/02/2014 Constitutional No diaphoresis 05/02/2014 Constitutional No fatigue 05/02/2014 Constitutional No fever 05/02/2014 Constitutional No insomnia 05/02/2014 Constitutional No malaise 05/02/2014 Eyes No eye discharge 05/02/2014 Eyes No eye erythema 05/02/2014 Ears/Nose/Throat/Neck No dizziness 2013 Ears/Nose/Throat/Neck headache 2013 Ears/Nose/Throat/Neck nasal discharge Ears/Nose/Throat/Neck No otitis media Ears/Nose/Throat/Neck sinus congestion Ears/Nose/Throat/Neck sore throat 2013 Cardiovascular No chest pain/pressure Respiratory productive sputum 05/02/2014 Respiratory chest congestion 05/02/2014 Respiratory cough 05/02/2014 Gastrointestinal No constipation 2013 Gastrointestinal No diarrhea 05/02/2014 Gastrointestinal No vomiting 05/02/2014 Gastrointestinal nausea 05/02/2014 Genitourinary/Nephrology No dysuria 05/02 Dermatologic No rash 05/02/2014 Dermatologic No acne rosacea 05/02/2014 Psychiatric No anxiety 05/02/2014 Psychiatric No depression 05/02/2014 Constitutional No recent illness 2013 Constitutional No anorexia 02/04/2014 Constitutional No night sweats 2013 Constitutional No chills 02/04/2014 Constitutional No diaphoresis 02/04/2014 Constitutional fatigue 02/04/2014 Constitutional No fever 02/04/2014 Eyes No eye discharge 02/04/2014 Eyes No eye erythema 02/04/2014 Ears/Nose/Throat/Neck No dizziness 2013 Ears/Nose/Throat/Neck No headache 2013 Ears/Nose/Throat/Neck No nasal allergies 02/04/2014 Ears/Nose/Throat/Neck No nasal discharge 02/04/2014 Ears/Nose/Throat/Neck No sore throat Respiratory No productive sputum 2013 Respiratory No chest congestion 2013 Respiratory No cough 02/04/2014 Gastrointestinal No abdominal pain 2013 Gastrointestinal No constipation 2013 Gastrointestinal No diarrhea 02/04/2014 Gastrointestinal No nausea 02/04/2014 Gastrointestinal No vomiting 02/04/2014 Genitourinary/Nephrology No dysuria 02/04 Musculoskeletal No joint complaint 2013 Dermatologic No rash 02/04/2014 Dermatologic No sores 02/04/2014 Psychiatric No anxiety 02/04/2014 Psychiatric No depression 02/04/2014 Constitutional malaise 02/04/2014 Constitutional No recent illness 2013 Constitutional No anorexia 11/05/2013 Constitutional No night sweats 2013 Constitutional No chills 11/05/2013 Constitutional No diaphoresis 11/05/2013 Constitutional fatigue 11/05/2013 Constitutional No fever 11/05/2013 Eyes No eye discharge 11/05/2013 Eyes No eye erythema 11/05/2013 Ears/Nose/Throat/Neck No dizziness 2013 Ears/Nose/Throat/Neck No headache 2013 Ears/Nose/Throat/Neck No nasal allergies 11/05/2013 Ears/Nose/Throat/Neck No nasal discharge 11/05/2013 Ears/Nose/Throat/Neck No sore throat Respiratory No productive sputum 2013 Respiratory No chest congestion 2013 Respiratory No cough 11/05/2013 Gastrointestinal No abdominal pain 2013 Gastrointestinal No constipation 2013 Gastrointestinal No diarrhea 11/05/2013 Gastrointestinal No nausea 11/05/2013 Gastrointestinal No vomiting 11/05/2013 Genitourinary/Nephrology No dysuria 11/05 Musculoskeletal No joint complaint 2013 Dermatologic No rash 11/05/2013 Dermatologic No sores 11/05/2013 Psychiatric No anxiety 11/05/2013 Psychiatric No depression 11/05/2013 Constitutional No fever 07/17/2013 Constitutional No chills 07/17/2013 Eyes No eye discharge 07/17/2013 Eyes No eye erythema 07/17/2013 Ears/Nose/Throat/Neck No dizziness 2012 Ears/Nose/Throat/Neck nasal discharge 10/2012 Ears/Nose/Throat/Neck No otalgia 2012 Ears/Nose/Throat/Neck sinus congestion Ears/Nose/Throat/Neck No facial pain 10/2012 Cardiovascular No chest pain/pressure 10/2012 Cardiovascular No dyspnea 07/17/2013 Cardiovascular fatigue 07/17/2013 Cardiovascular No palpitations 2012 Respiratory cough 07/17/2013 Respiratory chest tightness 07/17/2013 Respiratory No wheezing 07/17/2013 Gastrointestinal No abdominal pain 2012 Gastrointestinal No constipation 2012 Gastrointestinal No diarrhea 07/17/2013 Gastrointestinal No nausea 07/17/2013 Gastrointestinal No vomiting 07/17/2013 Dermatologic No rash 07/17/2013 Dermatologic No sores 07/17/2013 Constitutional recent illness 06/07/2013 Constitutional No night sweats 2012 Constitutional No anorexia 06/07/2013 Constitutional No chills 06/07/2013 Constitutional No diaphoresis 06/07/2013 Constitutional fatigue 06/07/2013 Constitutional No fever 06/07/2013 Constitutional No insomnia 06/07/2013 Eyes No eye discharge 06/07/2013 Eyes No eye erythema 06/07/2013 Cardiovascular No chest pain/pressure Gastrointestinal No vomiting 06/07/2013 Gastrointestinal No nausea 06/07/2013 Genitourinary/Nephrology No dysuria 06/07 Musculoskeletal No joint complaint 2012 Dermatologic No sores 06/07/2013 Dermatologic No rash 06/07/2013 Constitutional No recent illness 2012 Constitutional No anorexia 04/30/2013 Constitutional No night sweats 2012 Constitutional No chills 04/30/2013 Constitutional No diaphoresis 04/30/2013 Constitutional fatigue 04/30/2013 Constitutional No fever 04/30/2013 Constitutional insomnia 04/30/2013 Eyes No eye discharge 04/30/2013 Eyes No eye erythema 04/30/2013 Ears/Nose/Throat/Neck No dizziness 2012 Ears/Nose/Throat/Neck No headache 2012 Ears/Nose/Throat/Neck No nasal allergies 04/30/2013 Ears/Nose/Throat/Neck No nasal discharge 04/30/2013 Ears/Nose/Throat/Neck No sore throat Respiratory No productive sputum 2012 Respiratory No chest congestion 2012 Respiratory No cough 04/30/2013 Gastrointestinal No abdominal pain 2012 Gastrointestinal No constipation 2012 Gastrointestinal No diarrhea 04/30/2013 Gastrointestinal No nausea 04/30/2013 Gastrointestinal No vomiting 04/30/2013 Genitourinary/Nephrology No dysuria 04/30 Musculoskeletal No joint complaint 2012 Dermatologic No rash 04/30/2013 Dermatologic No sores 04/30/2013 Psychiatric No anxiety 04/30/2013 Psychiatric No depression 04/30/2013 Constitutional No recent illness 2012 Constitutional No anorexia 01/29/2013 Constitutional No night sweats 2012 Constitutional No chills 01/29/2013 Constitutional No diaphoresis 01/29/2013 Constitutional fatigue 01/29/2013 Constitutional No fever 01/29/2013 Constitutional insomnia 01/29/2013 Eyes No eye discharge 01/29/2013 Eyes No eye erythema 01/29/2013 Ears/Nose/Throat/Neck No dizziness 2012 Ears/Nose/Throat/Neck No headache 2012 Ears/Nose/Throat/Neck No nasal allergies 01/29/2013 Ears/Nose/Throat/Neck No nasal discharge 01/29/2013 Ears/Nose/Throat/Neck No sore throat Respiratory No productive sputum 2012 Respiratory No chest congestion 2012 Respiratory No cough 01/29/2013 Gastrointestinal No abdominal pain 2012 Gastrointestinal No constipation 2012 Gastrointestinal No diarrhea 01/29/2013 Gastrointestinal No nausea 01/29/2013 Gastrointestinal No vomiting 01/29/2013 Genitourinary/Nephrology No dysuria 01/29 Musculoskeletal No joint complaint 2012 Dermatologic No rash 01/29/2013 Dermatologic No sores 01/29/2013 Psychiatric No anxiety 01/29/2013 Psychiatric No depression 01/29/2013 Constitutional No recent illness 2012 Constitutional No anorexia 10/30/2012 Constitutional No night sweats 2012 Constitutional No chills 10/30/2012 Constitutional No diaphoresis 10/30/2012 Constitutional fatigue 10/30/2012 Constitutional No fever 10/30/2012 Constitutional insomnia 10/30/2012 Eyes No eye discharge 10/30/2012 Eyes No eye erythema 10/30/2012 Ears/Nose/Throat/Neck No dizziness 2012 Ears/Nose/Throat/Neck No headache 2012 Ears/Nose/Throat/Neck No nasal allergies 10/30/2012 Ears/Nose/Throat/Neck No nasal discharge 10/30/2012 Ears/Nose/Throat/Neck No sore throat Respiratory No productive sputum 2012 Respiratory No chest congestion 2012 Respiratory No cough 10/30/2012 Gastrointestinal No abdominal pain 2012 Gastrointestinal No constipation 2012 Gastrointestinal No diarrhea 10/30/2012 Gastrointestinal No nausea 10/30/2012 Gastrointestinal No vomiting 10/30/2012 Genitourinary/Nephrology No dysuria 10/30 Musculoskeletal No joint complaint 2012 Dermatologic No rash 10/30/2012 Dermatologic No sores 10/30/2012 Constitutional No recent illness 2011 Constitutional No anorexia 07/12/2012 Constitutional No night sweats 2011 Constitutional No chills 07/12/2012 Constitutional No diaphoresis 07/12/2012 Constitutional fatigue 07/12/2012 Constitutional No fever 07/12/2012 Constitutional insomnia 07/12/2012 Eyes No eye discharge 07/12/2012 Eyes No eye erythema 07/12/2012 Ears/Nose/Throat/Neck No dizziness 2011 Ears/Nose/Throat/Neck No headache 2011 Ears/Nose/Throat/Neck No nasal allergies 07/12/2012 Ears/Nose/Throat/Neck No nasal discharge 07/12/2012 Ears/Nose/Throat/Neck No sore throat Respiratory No productive sputum 2011 Respiratory No chest congestion 2011 Respiratory No cough 07/12/2012 Gastrointestinal No vomiting 07/12/2012 Gastrointestinal No nausea 07/12/2012 Gastrointestinal No abdominal pain 2011 Gastrointestinal No constipation 2011 Gastrointestinal No diarrhea 07/12/2012 Genitourinary/Nephrology No dysuria 07/12 Dermatologic No rash 07/12/2012 Dermatologic No sores 07/12/2012 Musculoskeletal No joint complaint 2011 Constitutional No night sweats 2011 Constitutional No chills 06/07/2012 Constitutional No fever 06/07/2012 Constitutional insomnia 06/07/2012 Eyes No vision change 06/07/2012 Ears/Nose/Throat/Neck No dizziness 2011 Ears/Nose/Throat/Neck No headache 2011 Respiratory No chest congestion 2011 Respiratory No chest tightness 2011 Respiratory No cough 06/07/2012 Gastrointestinal No abdominal pain 2011 Gastrointestinal No constipation 2011 Gastrointestinal No diarrhea 06/07/2012 Genitourinary/Nephrology No urinary urgency 06/07/2012 Genitourinary/Nephrology No urinary frequency 06/07/2012 Genitourinary/Nephrology No urinary incontinence 06/07/2012 Genitourinary/Nephrology No vaginal discharge 06/07/2012 Musculoskeletal No stiffness 06/07/2012 Musculoskeletal arthralgia(s) 06/07/2012 Musculoskeletal No muscle weakness 2011 Musculoskeletal No myalgias 06/07/2012 Neurologic No ataxia 06/07/2012 Neurologic No gait abnormality 2011 Neurologic syncope 06/07/2012 Constitutional No night sweats 2011 Constitutional No chills 12/01/2011 Constitutional fatigue 12/01/2011 Constitutional No fever 12/01/2011 Constitutional malaise 12/01/2011 Cardiovascular No chest pain/pressure Cardiovascular hypertension 12/01/2011 Respiratory cough 12/01/2011 Respiratory chest congestion 12/01/2011 Respiratory chest tightness 12/01/2011 Respiratory productive sputum 12/01/2011 Musculoskeletal myalgias 12/01/2011 Ears/Nose/Throat/Neck hoarseness 2011 Ears/Nose/Throat/Neck No dizziness 2011 Ears/Nose/Throat/Neck No dysphagia 2011 Ears/Nose/Throat/Neck No nasal pain 12/01 Ears/Nose/Throat/Neck No oral lesion Ears/Nose/Throat/Neck No oral pain 2011 Ears/Nose/Throat/Neck postnasal drip Ears/Nose/Throat/Neck No sinus congestion 12/01/2011 Ears/Nose/Throat/Neck sore throat 2011 Constitutional No chills 11/18/2011 Constitutional fatigue 11/18/2011 Constitutional No fever 11/18/2011 Ears/Nose/Throat/Neck No headache 2011 Ears/Nose/Throat/Neck No hoarseness 11/18 Ears/Nose/Throat/Neck No nasal allergies 11/18/2011 Ears/Nose/Throat/Neck No nasal discharge 11/18/2011 Cardiovascular No chest pain/pressure 11/2011 Cardiovascular No palpitations 2011 Respiratory pleuritic pain 11/18/2011 Respiratory cough 11/18/2011 Respiratory No chest tightness 2011 Respiratory No dyspnea 11/18/2011 Gastrointestinal No abdominal pain 2011 Gastrointestinal No constipation 2011 Gastrointestinal No nausea 11/18/2011 Gastrointestinal No vomiting 11/18/2011 Musculoskeletal No joint complaint 2011 Musculoskeletal No swelling 11/18/2011 Musculoskeletal No stiffness 11/18/2011 Dermatologic No rash 11/18/2011 Dermatologic No sores 11/18/2011 Constitutional No night sweats 2011 Constitutional No chills 11/09/2011 Constitutional No fever 11/09/2011 Constitutional No insomnia 11/09/2011 Cardiovascular exercise intolerance 11/09 Cardiovascular hypertension 11/09/2011 Respiratory No cough 11/09/2011 Respiratory No chest tightness 2011 Respiratory No chest congestion 2011 Neurologic No headache 11/09/2011 Neurologic No dizziness 11/09/2011 Musculoskeletal arthralgia(s) 10/27/2011 Musculoskeletal No stiffness 10/27/2011 Musculoskeletal No muscle weakness 2011 Musculoskeletal No myalgias 10/27/2011 Neurologic No gait abnormality 2011 Neurologic No ataxia 10/27/2011 Constitutional No night sweats 2011 Constitutional No chills 10/27/2011 Constitutional No fever 10/27/2011 Constitutional insomnia 10/27/2011 Cardiovascular No chest pain/pressure 08/2012 Cardiovascular No edema 10/27/2011 Cardiovascular fatigue 10/27/2011 Cardiovascular No exercise intolerance Respiratory No cough 10/27/2011 Respiratory No chest tightness 2011 Respiratory No chest congestion 2011 Gastrointestinal No abdominal pain 2011 Gastrointestinal No constipation 2011 Gastrointestinal No diarrhea 10/27/2011 Genitourinary/Nephrology No urinary frequency 10/27/2011 Genitourinary/Nephrology No urinary incontinence 10/27/2011 Genitourinary/Nephrology No vaginal discharge 10/27/2011 Genitourinary/Nephrology No urinary urgency 10/27/2011 Neurologic syncope 10/27/2011 Eyes No vision change 10/27/2011 Ears/Nose/Throat/Neck No dizziness 2011 Ears/Nose/Throat/Neck No headache 2011 Physical Exam Exam Name System Name Item Name Status Result Effective Dates Notes Full Exam - General 1994 Constitutional general appearance Overall: well developed 03/01/2019 None Full Exam - General 1994 Constitutional general appearance Overall: in no acute distress 03/01/2019 None Full Exam - General 1994 Constitutional general appearance Overall: well nourished 03/01/2019 None Full Exam - General 1994 Eyes pupils and irises Overall: pupils equal, round, reactive to light and accomodation 03/01/2019 None Full Exam - General 1994 Ears/Nose/Throat oral cavity/pharynx/larynx Overall: oral mucosa clear 03/01/2019 None Full Exam - General 1994 Ears/Nose/Throat oral cavity/pharynx/larynx Overall: oropharyngeal mucosa clear 03/01/2019 None Full Exam - General 1994 Ears/Nose/Throat oral cavity/pharynx/larynx Overall: no masses 03/01/2019 None Full Exam - General 1994 Respiratory auscultation Overall: breath sounds clear bilaterally 03/01/2019 None Full Exam - General 1994 Respiratory respiratory effort/rhythm Overall: no retractions 03/01/2019 None Full Exam - General 1994 Respiratory respiratory effort/rhythm Overall: normal rate 03/01/2019 None Full Exam - General 1994 Cardiovascular extremities Overall: no clubbing 03/01/2019 None Full Exam - General 1994 Cardiovascular auscultation of heart Overall: regular rate 03/01/2019 None Full Exam - General 1994 Cardiovascular auscultation of heart Overall: normal heart sounds 03/01/2019 None Full Exam - General 1994 Cardiovascular auscultation of heart Overall: no murmurs 03/01/2019 None Full Exam - General 1994 Musculoskeletal head and neck Overall: head atraumatic 03/01/2019 None Full Exam - General 1994 Musculoskeletal head and neck Overall: cervical spine benign 03/01/2019 None Full Exam - General 1994 Neurologic cranial nerves Overall: crainial nerves 2 - 12 grossly intact 03/01/2019 None Full Exam - General 1994 Psychiatric orientation/consciousness Overall: oriented to person, place and time 03/01/2019 None Full Exam - General 1994 Psychiatric mood and affect Overall: normal mood and affect 03/01/2019 None Full Exam - ENT Constitutional general appearance Overall: well nourished 02/05/2019 None Full Exam - ENT Constitutional general appearance Overall: well developed 02/05/2019 None Full Exam - ENT Constitutional general appearance Overall: in no acute distress 02/05/2019 None Full Exam - ENT Ears/Nose/Throat otoscopic exam Overall: external auditory canals normal 02/05/2019 None Full Exam - ENT Ears/Nose/Throat otoscopic exam Left tympanic membrane: air -fluid level 02/05/2019 None Full Exam - ENT Ears/Nose/Throat otoscopic exam Right tympanic membrane: air-fluid level 02/05/2019 None Full Exam - ENT Ears/Nose/Throat nasal mucosa, septum, turbinates Drainage: clear 02/05/2019 None Full Exam - ENT Ears/Nose/Throat nasal mucosa, septum, turbinates Drainage: yellow 02/05/2019 None Full Exam - ENT Ears/Nose/Throat lips/ teeth/gingiva Overall: benign lips 02/05/2019 None Full Exam - ENT Ears/Nose/Throat oropharynx Posterior Pharynx: clear post nasal drainage 02/05/2019 None Full Exam - ENT Face and Head palpation Left maxillary sinus: tender 02/05/2019 None Full Exam - ENT Face and Head palpation Right maxillary sinus: tender 02/05/2019 None Full Exam - ENT Respiratory inspection Overall: no retractions 02/05/2019 None Full Exam - ENT Respiratory inspection Overall: normal rate None Full Exam - ENT Respiratory auscultation Overall: breath sounds clear bilaterally 02/05/2019 None Full Exam - ENT Cardiovascular auscultation of heart Overall: regular rate 02/05/2019 None Full Exam - ENT Cardiovascular auscultation of heart Overall: normal heart sounds 02/05/2019 None Full Exam - ENT Lymphatic palpation of lymph nodes Overall: anterior cervical chain benign 02/05/2019 None Full Exam - ENT Lymphatic palpation of lymph nodes Overall: posterior cervical chain benign 02/05/2019 None Full Exam - ENT Neurologic mood and affect Overall: normal mood 02/05/2019 None Full Exam - ENT Neurologic mood and affect Overall: normal affect 02/05/2019 None Full Exam - ENT Neurologic orientation Overall: oriented to person, place and time 02/05/2019 None Full Exam - ENT Constitutional general appearance Overall: well nourished 11/24/2018 None Full Exam - ENT Constitutional general appearance Overall: well developed 11/24/2018 None Full Exam - ENT Constitutional general appearance Overall: in no acute distress 11/24/2018 None Full Exam - ENT Ears/Nose/Throat otoscopic exam Left tympanic membrane: air -fluid level 11/24/2018 None Full Exam - ENT Ears/Nose/Throat otoscopic exam Overall: external auditory canals normal 11/24/2018 None Full Exam - ENT Ears/Nose/Throat otoscopic exam Right tympanic membrane: air-fluid level 11/24/2018 None Full Exam - ENT Ears/Nose/Throat lips/ teeth/gingiva Overall: benign lips 11/24/2018 None Full Exam - ENT Ears/Nose/Throat oropharynx Overall: oral mucosa clear 11/24/2018 None Full Exam - ENT Ears/Nose/Throat oropharynx Posterior Pharynx: clear post nasal drainage 11/24/2018 None Full Exam - ENT Respiratory inspection Overall: no retractions 11/24/2018 None Full Exam - ENT Respiratory inspection Overall: normal rate 05/2019 None Full Exam - ENT Respiratory auscultation Overall: breath sounds clear bilaterally 11/24/2018 None Full Exam - ENT Cardiovascular auscultation of heart Rate: normal rate 11/24/2018 None Full Exam - ENT Cardiovascular auscultation of heart Rhythm: regular rhythm 11/24/2018 None Full Exam - ENT Lymphatic palpation of lymph nodes Overall: anterior cervical chain benign 11/24/2018 None Full Exam - ENT Lymphatic palpation of lymph nodes Overall: posterior cervical chain benign 11/24/2018 None Full Exam - ENT Neurologic mood and affect Overall: normal mood 11/24/2018 None Full Exam - ENT Neurologic mood and affect Overall: normal affect 11/24/2018 None Full Exam - ENT Neurologic orientation Overall: oriented to person, place and time 11/24/2018 None Full Exam - Cardiology Psychiatric orientation/consciousness Overall: oriented to person, place and time 11/24/2018 None Full Exam - Cardiology Integument inspection/palpation Overall: no rash, lesions 11/24/2018 None Full Exam - Cardiology Eyes conjunctiva/ eyelids Overall: conjunctiva clear 11/24/2018 None Full Exam - General 1994 Constitutional general appearance Overall: well developed 10/31/2018 None Full Exam - General 1994 Constitutional general appearance Overall: in no acute distress 10/31/2018 None Full Exam - General 1994 Constitutional general appearance Overall: well nourished 10/31/2018 None Full Exam - General 1994 Eyes pupils and irises Overall: pupils equal, round, reactive to light and accomodation 10/31/2018 None Full Exam - General 1994 Ears/Nose/Throat otoscopic exam Overall: external auditory canals clear 10/31/2018 None Full Exam - General 1994 Ears/Nose/Throat otoscopic exam Overall: tympanic membranes clear 10/31/2018 None Full Exam - General 1994 Ears/Nose/Throat oral cavity/pharynx/larynx Overall: oral mucosa clear 10/31/2018 None Full Exam - General 1995 Ears/Nose/Throat oral cavity/pharynx/larynx Overall: oropharyngeal mucosa clear 10/31/2018 None Full Exam - General 1994 Ears/Nose/Throat oral cavity/pharynx/larynx Overall: no masses 10/31/2018 None Full Exam - General 1994 Respiratory auscultation Overall: breath sounds clear bilaterally 10/31/2018 None Full Exam - General 1994 Respiratory respiratory effort/rhythm Overall: no retractions 10/31/2018 None Full Exam - General 1994 Respiratory respiratory effort/rhythm Overall: normal rate 10/31/2018 None Full Exam - General 1994 Cardiovascular extremities Overall: no clubbing 10/31/2018 None Full Exam - General 1994 Cardiovascular auscultation of heart Overall: regular rate 10/31/2018 None Full Exam - General 1994 Cardiovascular auscultation of heart Overall: normal heart sounds 10/31/2018 None Full Exam - General 1994 Cardiovascular auscultation of heart Overall: no murmurs 10/31/2018 None Full Exam - General 1994 Musculoskeletal head and neck Overall: head atraumatic 10/31/2018 None Full Exam - General 1994 Musculoskeletal head and neck Overall: cervical spine benign 10/31/2018 None Full Exam - General 1994 Psychiatric orientation/consciousness Overall: oriented to person, place and time 10/31/2018 None Full Exam - General 1994 Psychiatric mood and affect Overall: normal mood and affect 10/31/2018 None Full Exam - ENT Constitutional general appearance Overall: well nourished 09/26/2018 None Full Exam - ENT Constitutional general appearance Overall: well developed 09/26/2018 None Full Exam - ENT Constitutional general appearance Overall: in no acute distress 09/26/2018 None Full Exam - ENT Ears/Nose/Throat otoscopic exam Overall: external auditory canals normal 09/26/2018 None Full Exam - ENT Ears/Nose/Throat otoscopic exam Left tympanic membrane: air -fluid level 09/26/2018 None Full Exam - ENT Ears/Nose/Throat otoscopic exam Right tympanic membrane: air-fluid level 09/26/2018 None Full Exam - ENT Ears/Nose/Throat lips/ teeth/gingiva Overall: benign lips 09/26/2018 None Full Exam - ENT Ears/Nose/Throat oropharynx Overall: oral mucosa clear 09/26/2018 None Full Exam - ENT Ears/Nose/Throat oropharynx Posterior Pharynx: clear post nasal drainage 09/26/2018 None Full Exam - ENT Ears/Nose/Throat oropharynx Posterior Pharynx: erythema 09/26/2018 None Full Exam - ENT Respiratory inspection Overall: no retractions 09/26/2018 None Full Exam - ENT Respiratory inspection Overall: normal rate 08/2018 None Full Exam - ENT Respiratory auscultation Overall: breath sounds clear bilaterally 09/26/2018 None Full Exam - ENT Cardiovascular auscultation of heart Rate: normal rate 09/26/2018 None Full Exam - ENT Cardiovascular auscultation of heart Rhythm: regular rhythm 09/26/2018 None Full Exam - ENT Lymphatic palpation of lymph nodes Overall: anterior cervical chain benign 09/26/2018 None Full Exam - ENT Lymphatic palpation of lymph nodes Overall: posterior cervical chain benign 09/26/2018 None Full Exam - ENT Neurologic mood and affect Overall: normal mood 09/26/2018 None Full Exam - ENT Neurologic mood and affect Overall: normal affect 09/26/2018 None Full Exam - ENT Neurologic orientation Overall: oriented to person, place and time 09/26/2018 None Full Exam - General 1994 Constitutional general appearance Overall: well developed 06/27/2018 None Full Exam - General 1994 Constitutional general appearance Overall: in no acute distress 06/27/2018 None Full Exam - General 1994 Constitutional general appearance Overall: well nourished 06/27/2018 None Full Exam - General 1994 Eyes pupils and irises Overall: pupils equal, round, reactive to light and accomodation 06/27/2018 None Full Exam - General 1994 Ears/Nose/Throat otoscopic exam Overall: external auditory canals clear 06/27/2018 None Full Exam - General 1994 Ears/Nose/Throat otoscopic exam Overall: tympanic membranes clear 06/27/2018 None Full Exam - General 1994 Ears/Nose/Throat oral cavity/pharynx/larynx Overall: oral mucosa clear 06/27/2018 None Full Exam - General 1994 Ears/Nose/Throat oral cavity/pharynx/larynx Overall: oropharyngeal mucosa clear 06/27/2018 None Full Exam - General 1994 Ears/Nose/Throat oral cavity/pharynx/larynx Overall: no masses 06/27/2018 None Full Exam - General 1994 Respiratory auscultation Overall: breath sounds clear bilaterally 06/27/2018 None Full Exam - General 1994 Respiratory respiratory effort/rhythm Overall: no retractions 06/27/2018 None Full Exam - General 1994 Respiratory respiratory effort/rhythm Overall: normal rate 06/27/2018 None Full Exam - General 1994 Cardiovascular extremities Overall: no clubbing 06/27/2018 None Full Exam - General 1994 Cardiovascular auscultation of heart Overall: regular rate 06/27/2018 None Full Exam - General 1994 Cardiovascular auscultation of heart Overall: normal heart sounds 06/27/2018 None Full Exam - General 1994 Cardiovascular auscultation of heart Overall: no murmurs 06/27/2018 None Full Exam - General 1994 Abdomen abdominal exam Overall: no tenderness 06/27/2018 None Full Exam - General 1994 Abdomen abdominal exam Overall: normal bowel sounds 06/27/2018 None Full Exam - General 1994 Abdomen liver and spleen exam Overall: no hepatosplenomegaly 06/27/2018 None Full Exam - General 1994 Abdomen liver and spleen exam Overall: no stigmata of chronic liver disease 06/27/2018 None Full Exam - General 1994 Musculoskeletal head and neck Overall: head atraumatic 06/27/2018 None Full Exam - General 1994 Musculoskeletal head and neck Overall: cervical spine benign 06/27/2018 None Full Exam - General 1994 Neurologic deep tendon reflexes Overall: deep tendon reflexes intact 06/27/2018 None Full Exam - General 1994 Neurologic gait Overall: no ataxia, no unsteadiness 06/27/2018 None Full Exam - General 1994 Neurologic cranial nerves Overall: crainial nerves 2 - 12 grossly intact 06/27/2018 None Full Exam - General 1994 Psychiatric orientation/consciousness Overall: oriented to person, place and time 06/27/2018 None Full Exam - General 1994 Psychiatric mood and affect Overall: normal mood and affect 06/27/2018 None Full Exam - General 1994 Constitutional general appearance Overall: well developed 05/11/2018 None Full Exam - General 1994 Constitutional general appearance Overall: in no acute distress 05/11/2018 None Full Exam - General 1994 Constitutional general appearance Overall: well nourished 05/11/2018 None Full Exam - General 1994 Eyes pupils and irises Overall: pupils equal, round, reactive to light and accomodation 05/11/2018 None Full Exam - General 1994 Ears/Nose/Throat otoscopic exam Overall: external auditory canals clear 05/11/2018 None Full Exam - General 1994 Ears/Nose/Throat otoscopic exam Overall: tympanic membranes clear 05/11/2018 None Full Exam - General 1994 Ears/Nose/Throat oral cavity/pharynx/larynx Overall: oral mucosa clear 05/11/2018 None Full Exam - General 1994 Ears/Nose/Throat oral cavity/pharynx/larynx Overall: oropharyngeal mucosa clear 05/11/2018 None Full Exam - General 1994 Ears/Nose/Throat oral cavity/pharynx/larynx Overall: no masses 05/11/2018 None Full Exam - General 1994 Respiratory auscultation Overall: breath sounds clear bilaterally 05/11/2018 None Full Exam - General 1994 Respiratory respiratory effort/rhythm Overall: no retractions 05/11/2018 None Full Exam - General 1994 Respiratory respiratory effort/rhythm Overall: normal rate 05/11/2018 None Full Exam - General 1994 Cardiovascular extremities Overall: no clubbing 05/11/2018 None Full Exam - General 1994 Cardiovascular auscultation of heart Overall: regular rate 05/11/2018 None Full Exam - General 1994 Cardiovascular auscultation of heart Overall: normal heart sounds 05/11/2018 None Full Exam - General 1994 Cardiovascular auscultation of heart Overall: no murmurs 05/11/2018 None Full Exam - General 1994 Abdomen abdominal exam Overall: no tenderness 05/11/2018 None Full Exam - General 1994 Abdomen abdominal exam Overall: normal bowel sounds 05/11/2018 None Full Exam - General 1994 Abdomen liver and spleen exam Overall: no hepatosplenomegaly 05/11/2018 None Full Exam - General 1994 Abdomen liver and spleen exam Overall: no stigmata of chronic liver disease 05/11/2018 None Full Exam - General 1994 Musculoskeletal head and neck Overall: head atraumatic 05/11/2018 None Full Exam - General 1994 Musculoskeletal head and neck Overall: cervical spine benign 05/11/2018 None Full Exam - General 1994 Neurologic deep tendon reflexes Overall: deep tendon reflexes intact 05/11/2018 None Full Exam - General 1994 Neurologic gait Overall: no ataxia, no unsteadiness 05/11/2018 None Full Exam - General 1994 Neurologic cranial nerves Overall: crainial nerves 2 - 12 grossly intact 05/11/2018 None Full Exam - General 1994 Psychiatric orientation/consciousness Overall: oriented to person, place and time 05/11/2018 None Full Exam - General 1994 Psychiatric mood and affect Overall: normal mood and affect 05/11/2018 None Full Exam - ENT Constitutional general appearance Overall: well nourished 03/08/2017 None Full Exam - ENT Constitutional general appearance Overall: well developed 03/08/2017 None Full Exam - ENT Constitutional general appearance Overall: in no acute distress 03/08/2017 None Full Exam - ENT Neurologic orientation Overall: oriented to person, place and time 03/08/2017 None Full Exam - ENT Integument inspection of skin Overall: no rash, lesions 03/08/2017 None Full Exam - ENT Musculoskeletal head and neck Overall: head atraumatic 03/08/2017 None Full Exam - ENT Musculoskeletal head and neck Overall: cervical spine benign 03/08/2017 None Full Exam - ENT Lymphatic palpation of lymph nodes Overall: anterior cervical chain benign 03/08/2017 None Full Exam - ENT Lymphatic palpation of lymph nodes Overall: posterior cervical chain benign 03/08/2017 None Full Exam - ENT Cardiovascular auscultation of heart Overall: regular rate 03/08/2017 None Full Exam - ENT Cardiovascular auscultation of heart Overall: normal heart sounds 03/08/2017 None Full Exam - ENT Respiratory inspection Overall: no retractions 03/08/2017 None Full Exam - ENT Respiratory inspection Overall: normal rate None Full Exam - ENT Respiratory auscultation Overall: breath sounds clear bilaterally 03/08/2017 None Full Exam - ENT Face and Head palpation Left maxillary sinus: tender 03/08/2017 None Full Exam - ENT Face and Head palpation Right maxillary sinus: tender 03/08/2017 None Full Exam - ENT Ears/Nose/Throat otoscopic exam Overall: external auditory canals normal 03/08/2017 None Full Exam - ENT Ears/Nose/Throat otoscopic exam Overall: tympanic membranes normal 03/08/2017 None Full Exam - ENT Ears/Nose/Throat oropharynx Overall: oral mucosa clear 03/08/2017 None Full Exam - Dermatology Constitutional general appearance Overall: well nourished 09/06/2016 None Full Exam - Dermatology Constitutional general appearance Overall: well developed 09/06/2016 None Full Exam - Dermatology Constitutional general appearance Overall: in no acute distress 09/06/2016 None Full Exam - Dermatology Constitutional general appearance Overall: well groomed 09/06/2016 None Full Exam - Dermatology Eyes conjunctiva/ eyelids Overall: clear conjunctiva bilaterally 09/06/2016 None Full Exam - Dermatology Eyes conjunctiva/ eyelids Overall: clear corneas 09/06/2016 None Full Exam - Dermatology Eyes conjunctiva/ eyelids Overall: normal eyelids 09/06/2016 None Full Exam - Dermatology Ears/Nose/Throat lips/teeth/gingiva Overall: benign lips 09/06/2016 None Full Exam - Dermatology Ears/Nose/Throat lips/teeth/gingiva Overall: normal dentition 09/06/2016 None Full Exam - Dermatology Respiratory respiratory effort/rhythm Overall: no retractions 09/06/2016 None Full Exam - Dermatology Respiratory respiratory effort/rhythm Overall: normal rate 09/06/2016 None Full Exam - Dermatology Integument insp & palp - right upper extremity Lesion: excoriation 09/06/2016 None Full Exam - Dermatology Integument insp & palp - right upper extremity Distribution: isolated 09/06/2016 None Full Exam - Dermatology Integument insp & palp - right upper extremity Location: on the upper arm 09/06/2016 None Full Exam - Dermatology Integument insp & palp - right upper extremity Color: red 09/06/2016 None Full Exam - Dermatology Neurologic mental status Overall: alert 09/06/2016 None Full Exam - Dermatology Neurologic mental status Overall: oriented 09/06/2016 None Full Exam - Dermatology Neurologic gait Overall: no ataxia, no unsteadiness 09/06/2016 None Full Exam - Dermatology Neurologic speech Overall: normal quality, no aphasia 09/06/2016 None Full Exam - Dermatology Psychiatric orientation Overall: oriented to person, place and time 09/06/2016 None Full Exam - Dermatology Psychiatric mood and affect Overall: normal mood and affect 09/06/2016 None Full Exam - General 1994 Constitutional general appearance Overall: well developed 07/08/2016 None Full Exam - General 1994 Constitutional general appearance Overall: in no acute distress 07/08/2016 ill appearing Full Exam - General 1994 Constitutional general appearance Overall: well nourished 07/08/2016 None Full Exam - General 1994 Psychiatric orientation/consciousness Overall: oriented to person, place and time 07/08/2016 None Full Exam - General 1994 Integument inspection of skin Overall: no rash, lesions 07/08/2016 None Full Exam - General 1994 Musculoskeletal gait and station Overall: normal gait 07/08/2016 None Full Exam - General 1994 Musculoskeletal gait and station Overall: normal station 07/08/2016 None Full Exam - General 1994 Lymphatic neck nodes Overall: anterior cervical chain benign 07/08/2016 None Full Exam - General 1994 Lymphatic neck nodes Overall: posterior cervical chain benign 07/08/2016 None Full Exam - General 1994 Abdomen abdominal exam Lower quadrant: non-tender to palpation 07/08/2016 None Full Exam - General 1994 Abdomen abdominal exam Upper quadrant: tender to palpation 07/08/2016 None Full Exam - General 1994 Abdomen abdominal exam Upper quadrant: dull pain 07/08/2016 None Full Exam - General 1994 Abdomen abdominal exam Upper quadrant: no rebound tenderness 07/08/2016 None Full Exam - General 1994 Abdomen abdominal exam Overall: normal bowel sounds 07/08/2016 None Full Exam - General 1994 Cardiovascular auscultation of heart Overall: regular rate 07/08/2016 None Full Exam - General 1994 Cardiovascular auscultation of heart Overall: normal heart sounds 07/08/2016 None Full Exam - General 1994 Respiratory auscultation Overall: breath sounds clear bilaterally 07/08/2016 None Full Exam - General 1994 Respiratory respiratory effort/rhythm Overall: no retractions 07/08/2016 None Full Exam - General 1994 Respiratory respiratory effort/rhythm Overall: normal rate 07/08/2016 None Full Exam - General 1994 Ears/Nose/Throat otoscopic exam Overall: external auditory canals clear 07/08/2016 None Full Exam - General 1994 Ears/Nose/Throat otoscopic exam Overall: tympanic membranes clear 07/08/2016 None Full Exam - General 1994 Ears/Nose/Throat oral cavity/pharynx/larynx Overall: oral mucosa clear 07/08/2016 None Full Exam - General 1994 Eyes conjunctiva /eyelids Overall: conjunctiva clear 07/08/2016 None Full Exam - General 1994 Eyes pupils and irises Overall: pupils equal, round, reactive to light and accomodation 07/08/2016 None Full Exam - General 1994 Constitutional general appearance Overall: well developed 01/14/2016 None Full Exam - General 1994 Constitutional general appearance Overall: in no acute distress 01/14/2016 None Full Exam - General 1994 Constitutional general appearance Overall: well nourished 01/14/2016 None Full Exam - General 1994 Neurologic cranial nerves Overall: crainial nerves 2 - 12 grossly intact 01/14/2016 None Full Exam - General 1994 Psychiatric orientation/consciousness Overall: oriented to person, place and time 01/14/2016 None Full Exam - General 1994 Psychiatric mood and affect Overall: normal mood and affect 01/14/2016 None Full Exam - General 1994 Eyes conjunctiva /eyelids Overall: conjunctiva clear 01/14/2016 None Full Exam - General 1994 Eyes conjunctiva /eyelids Overall: cornea clear 01/14/2016 None Full Exam - General 1994 Eyes conjunctiva /eyelids Overall: eyelids normal 01/14/2016 None Full Exam - General 1994 Ears/Nose/Throat lips/teeth/gingiva Overall: benign lips 01/14/2016 None Full Exam - General 1994 Ears/Nose/Throat oral cavity/pharynx/larynx Overall: oral mucosa clear 01/14/2016 None Full Exam - General 1994 Respiratory auscultation Overall: breath sounds clear bilaterally 01/14/2016 None Full Exam - General 1994 Respiratory respiratory effort/rhythm Overall: no retractions 01/14/2016 None Full Exam - General 1994 Respiratory respiratory effort/rhythm Overall: normal rate 01/14/2016 None Full Exam - General 1994 Cardiovascular auscultation of heart Overall: regular rate 01/14/2016 None Full Exam - General 1994 Cardiovascular auscultation of heart Overall: normal heart sounds 01/14/2016 None Full Exam - General 1994 Integument inspection of skin Location: left arm 01/14/2016 None Full Exam - General 1994 Integument inspection of skin Dermatitis: erythema 01/14/2016 macular rash. Full Exam - General 1994 Constitutional general appearance Overall: well developed 11/17/2015 None Full Exam - General 1994 Constitutional general appearance Overall: in no acute distress 11/17/2015 None Full Exam - General 1994 Constitutional general appearance Overall: well nourished 11/17/2015 None Full Exam - General 1994 Psychiatric mood and affect Overall: normal mood and affect 11/17/2015 None Full Exam - General 1994 Psychiatric orientation/consciousness Overall: oriented to person, place and time 11/17/2015 None Full Exam - General 1994 Neurologic cranial nerves Overall: crainial nerves 2 - 12 grossly intact 11/17/2015 None Full Exam - General 1994 Musculoskeletal upper extremity Palpation - shoulder: tenderness @ bicipital groove 11/17/2015 None Full Exam - General 1994 Musculoskeletal upper extremity ROM - shoulder: pain with abduction 11/17/2015 None Full Exam - General 1994 Musculoskeletal upper extremity ROM - shoulder: pain with adduction 11/17/2015 None Full Exam - General 1994 Musculoskeletal upper extremity Palpation - upper arm: normal on palpation 11/17/2015 None Full Exam - General 1994 Constitutional general appearance Overall: well developed 08/29/2015 None Full Exam - General 1994 Constitutional general appearance Overall: in no acute distress 08/29/2015 None Full Exam - General 1994 Constitutional general appearance Overall: well nourished 08/29/2015 None Full Exam - General 1994 Eyes pupils and irises Overall: pupils equal, round, reactive to light and accomodation 08/29/2015 None Full Exam - General 1994 Ears/Nose/Throat otoscopic exam Overall: external auditory canals clear 08/29/2015 None Full Exam - General 1994 Ears/Nose/Throat otoscopic exam Tympanic membrane: air- fluid level 08/29/2015 None Full Exam - General 1994 Ears/Nose/Throat oral cavity/pharynx/larynx Overall: oral mucosa clear 08/29/2015 None Full Exam - General 1994 Ears/Nose/Throat oral cavity/pharynx/larynx Oropharynx: erythema 08/29/2015 None Full Exam - General 1994 Ears/Nose/Throat internal nose Sinus tenderness: left maxillary 08/29/2015 None Full Exam - General 1994 Ears/Nose/Throat internal nose Sinus tenderness: right maxillary 08/29/2015 None Full Exam - General 1994 Respiratory auscultation Overall: breath sounds clear bilaterally 08/29/2015 None Full Exam - General 1994 Respiratory respiratory effort/rhythm Overall: no retractions 08/29/2015 None Full Exam - General 1994 Respiratory respiratory effort/rhythm Overall: normal rate 08/29/2015 None Full Exam - General 1994 Cardiovascular auscultation of heart Overall: regular rate 08/29/2015 None Full Exam - General 1994 Cardiovascular auscultation of heart Overall: normal heart sounds 08/29/2015 None Full Exam - General 1994 Abdomen abdominal exam Overall: normal bowel sounds 08/29/2015 None Full Exam - General 1994 Abdomen abdominal exam Epigastric: tender to palpation 08/29/2015 None Full Exam - General 1994 Abdomen abdominal exam Epigastric: no guarding 08/29/2015 None Full Exam - General 1994 Abdomen abdominal exam Epigastric: no rebound tenderness 08/29/2015 None Full Exam - General 1994 Abdomen abdominal exam Epigastric: no mass lesions 08/29/2015 None Full Exam - General 1994 Abdomen abdominal exam Epigastric: soft 08/29/2015 None Full Exam - General 1994 Abdomen abdominal exam Lower quadrant: non-tender to palpation 08/29/2015 None Full Exam - General 1994 Abdomen abdominal exam Lower quadrant: no guarding 08/29/2015 None Full Exam - General 1994 Abdomen abdominal exam Lower quadrant: no rebound tenderness 08/29/2015 None Full Exam - General 1994 Abdomen abdominal exam Lower quadrant: no mass lesions 08/29/2015 None Full Exam - General 1994 Abdomen abdominal exam Lower quadrant: soft 08/29/2015 None Full Exam - General 1994 Abdomen abdominal exam Upper quadrant: non-tender to palpation 08/29/2015 None Full Exam - General 1994 Abdomen abdominal exam Upper quadrant: no guarding 08/29/2015 None Full Exam - General 1994 Abdomen abdominal exam Upper quadrant: no rebound tenderness 08/29/2015 None Full Exam - General 1994 Abdomen abdominal exam Upper quadrant: no mass lesions 08/29/2015 None Full Exam - General 1994 Abdomen abdominal exam Upper quadrant: soft 08/29/2015 None Full Exam - General 1994 Musculoskeletal gait and station Overall: normal gait 08/29/2015 None Full Exam - General 1994 Musculoskeletal gait and station Overall: normal station 08/29/2015 None Full Exam - General 1994 Integument inspection of skin Overall: few scattered moles, no gross abnormalities 08/29/2015 None Full Exam - General 1994 Neurologic cranial nerves Overall: crainial nerves 2 - 12 grossly intact 08/29/2015 None Full Exam - General 1994 Psychiatric orientation/consciousness Overall: oriented to person, place and time 08/29/2015 None Full Exam - Orthopedics Constitutional general appearance Overall: well nourished 01/27/2015 None Full Exam - Orthopedics Constitutional general appearance Overall: well developed 01/27/2015 None Full Exam - Orthopedics Constitutional general appearance Overall: in no acute distress 01/27/2015 None Full Exam - Orthopedics Constitutional general appearance Overall: normal body habitus 01/27/2015 None Full Exam - Orthopedics Constitutional general appearance Overall: no deformities 01/27/2015 None Full Exam - Orthopedics Constitutional general appearance Overall: well groomed 01/27/2015 None Full Exam - Orthopedics Constitutional general appearance Overall: no assistive devices 01/27/2015 None Full Exam - Orthopedics Psychiatric orientation/consciousness Overall: oriented to person, place and time 01/27/2015 None Full Exam - Orthopedics MS: left lower extremity insp & palp - LLE Knee: normal appearance 01/27/2015 None Full Exam - Orthopedics MS: left lower extremity insp & palp - LLE Lower leg: normal appearance 01/27/2015 None Full Exam - Orthopedics MS: left lower extremity range of motion - LLE Knee: full range of motion 01/27/2015 None Full Exam - Orthopedics MS: left lower extremity stability - LLE Overall: knee, ankle and foot stable 01/27/2015 None Full Exam - Orthopedics MS: left lower extremity stability - LLE Knee: painful pivot shift test 01/27/2015 None Full Exam - Orthopedics MS: left lower extremity strength & tone - LLE Overall: normal LLE bulk and tone 01/27/2015 None Full Exam - Orthopedics Lymphatic palpation Overall: benign posterior cervical chain 01/27/2015 None Full Exam - Orthopedics Lymphatic palpation Overall: benign anterior cervical chain 01/27/2015 None Full Exam - Orthopedics Cardiovascular examination of vasculature Overall: no clubbing, cyanosis, edema 01/27/2015 None Full Exam - Orthopedics Respiratory auscultation Overall: breath sounds clear bilaterally 01/27/2015 None Full Exam - Orthopedics Respiratory respiratory effort/rhythm Overall: no retractions 01/27/2015 None Full Exam - Orthopedics Respiratory respiratory effort/rhythm Overall: normal rate 01/27/2015 None Full Exam - Orthopedics Ears/Nose/Throat otoscopic exam Overall: external auditory canals clear 01/27/2015 None Full Exam - Orthopedics Ears/Nose/Throat oral cavity/pharynx/larynx Overall: oral mucosa clear 01/27/2015 None Full Exam - Orthopedics Eyes conjunctiva/ eyelids Overall: conjunctiva clear 01/27/2015 None Full Exam - General 1994 Constitutional general appearance Overall: well developed 08/05/2014 None Full Exam - General 1994 Constitutional general appearance Overall: in no acute distress 08/05/2014 None Full Exam - General 1994 Constitutional general appearance Overall: well nourished 08/05/2014 None Full Exam - General 1994 Eyes pupils and irises Overall: pupils equal, round, reactive to light and accomodation 08/05/2014 None Full Exam - General 1994 Ears/Nose/Throat otoscopic exam Overall: external auditory canals clear 08/05/2014 None Full Exam - General 1994 Ears/Nose/Throat otoscopic exam Overall: tympanic membranes clear 08/05/2014 None Full Exam - General 1994 Ears/Nose/Throat oral cavity/pharynx/larynx Overall: oral mucosa clear 08/05/2014 None Full Exam - General 1994 Ears/Nose/Throat oral cavity/pharynx/larynx Overall: oropharyngeal mucosa clear 08/05/2014 None Full Exam - General 1994 Ears/Nose/Throat oral cavity/pharynx/larynx Overall: no masses 08/05/2014 None Full Exam - General 1994 Respiratory auscultation Overall: breath sounds clear bilaterally 08/05/2014 None Full Exam - General 1994 Respiratory respiratory effort/rhythm Overall: no retractions 08/05/2014 None Full Exam - General 1994 Respiratory respiratory effort/rhythm Overall: normal rate 08/05/2014 None Full Exam - General 1994 Cardiovascular extremities Overall: no clubbing 08/05/2014 None Full Exam - General 1994 Cardiovascular auscultation of heart Overall: regular rate 08/05/2014 None Full Exam - General 1994 Cardiovascular auscultation of heart Overall: normal heart sounds 08/05/2014 None Full Exam - General 1994 Cardiovascular auscultation of heart Overall: no murmurs 08/05/2014 None Full Exam - General 1994 Musculoskeletal head and neck Overall: head atraumatic 08/05/2014 None Full Exam - General 1994 Musculoskeletal head and neck Overall: cervical spine benign 08/05/2014 None Full Exam - General 1994 Neurologic deep tendon reflexes Overall: deep tendon reflexes intact 08/05/2014 None Full Exam - General 1994 Neurologic gait Overall: no ataxia, no unsteadiness 08/05/2014 None Full Exam - General 1994 Neurologic cranial nerves Overall: crainial nerves 2 - 12 grossly intact 08/05/2014 None Full Exam - General 1994 Psychiatric orientation/consciousness Overall: oriented to person, place and time 08/05/2014 None Full Exam - General 1994 Psychiatric mood and affect Overall: normal mood and affect 08/05/2014 None Full Exam - General 1994 Musculoskeletal upper extremity Palpation - shoulder: tenderness @ bicipital groove 08/05/2014 None Full Exam - General 1994 Musculoskeletal upper extremity Palpation - wrist: tender 08/05/2014 anterior left wrist near base of thumb Full Exam - General 1994 Constitutional general appearance Overall: well developed 02/04/2014 None Full Exam - General 1994 Constitutional general appearance Overall: in no acute distress 02/04/2014 None Full Exam - General 1994 Constitutional general appearance Overall: well nourished 02/04/2014 None Full Exam - General 1994 Eyes pupils and irises Overall: pupils equal, round, reactive to light and accomodation 02/04/2014 None Full Exam - General 1994 Ears/Nose/Throat otoscopic exam Overall: external auditory canals clear 02/04/2014 None Full Exam - General 1994 Ears/Nose/Throat otoscopic exam Overall: tympanic membranes clear 02/04/2014 None Full Exam - General 1994 Ears/Nose/Throat oral cavity/pharynx/larynx Overall: oral mucosa clear 02/04/2014 None Full Exam - General 1994 Ears/Nose/Throat oral cavity/pharynx/larynx Overall: oropharyngeal mucosa clear 02/04/2014 None Full Exam - General 1994 Ears/Nose/Throat oral cavity/pharynx/larynx Overall: no masses 02/04/2014 None Full Exam - General 1994 Respiratory auscultation Overall: breath sounds clear bilaterally 02/04/2014 None Full Exam - General 1994 Respiratory respiratory effort/rhythm Overall: no retractions 02/04/2014 None Full Exam - General 1994 Respiratory respiratory effort/rhythm Overall: normal rate 02/04/2014 None Full Exam - General 1994 Cardiovascular extremities Overall: no clubbing 02/04/2014 None Full Exam - General 1994 Cardiovascular auscultation of heart Overall: regular rate 02/04/2014 None Full Exam - General 1994 Cardiovascular auscultation of heart Overall: normal heart sounds 02/04/2014 None Full Exam - General 1994 Cardiovascular auscultation of heart Overall: no murmurs 02/04/2014 None Full Exam - General 1994 Musculoskeletal head and neck Overall: head atraumatic 02/04/2014 None Full Exam - General 1994 Musculoskeletal head and neck Overall: cervical spine benign 02/04/2014 None Full Exam - General 1994 Neurologic deep tendon reflexes Overall: deep tendon reflexes intact 02/04/2014 None Full Exam - General 1994 Neurologic gait Overall: no ataxia, no unsteadiness 02/04/2014 None Full Exam - General 1994 Neurologic cranial nerves Overall: crainial nerves 2 - 12 grossly intact 02/04/2014 None Full Exam - General 1994 Psychiatric orientation/consciousness Overall: oriented to person, place and time 02/04/2014 None Full Exam - General 1994 Psychiatric mood and affect Overall: normal mood and affect 02/04/2014 None Full Exam - General 1994 Constitutional general appearance Overall: well developed 11/05/2013 None Full Exam - General 1994 Constitutional general appearance Overall: in no acute distress 11/05/2013 None Full Exam - General 1994 Constitutional general appearance Overall: well nourished 11/05/2013 None Full Exam - General 1994 Eyes pupils and irises Overall: pupils equal, round, reactive to light and accomodation 11/05/2013 None Full Exam - General 1994 Ears/Nose/Throat otoscopic exam Overall: external auditory canals clear 11/05/2013 None Full Exam - General 1994 Ears/Nose/Throat otoscopic exam Overall: tympanic membranes clear 11/05/2013 None Full Exam - General 1994 Ears/Nose/Throat oral cavity/pharynx/larynx Overall: oral mucosa clear 11/05/2013 None Full Exam - General 1994 Ears/Nose/Throat oral cavity/pharynx/larynx Overall: oropharyngeal mucosa clear 11/05/2013 None Full Exam - General 1994 Ears/Nose/Throat oral cavity/pharynx/larynx Overall: no masses 11/05/2013 None Full Exam - General 1994 Respiratory auscultation Overall: breath sounds clear bilaterally 11/05/2013 None Full Exam - General 1994 Respiratory respiratory effort/rhythm Overall: no retractions 11/05/2013 None Full Exam - General 1994 Respiratory respiratory effort/rhythm Overall: normal rate 11/05/2013 None Full Exam - General 1994 Cardiovascular extremities Overall: no clubbing 11/05/2013 None Full Exam - General 1994 Cardiovascular auscultation of heart Overall: regular rate 11/05/2013 None Full Exam - General 1994 Cardiovascular auscultation of heart Overall: normal heart sounds 11/05/2013 None Full Exam - General 1994 Cardiovascular auscultation of heart Overall: no murmurs 11/05/2013 None Full Exam - General 1995 Musculoskeletal head and neck Overall: head atraumatic 11/05/2013 None Full Exam - General 1995 Musculoskeletal head and neck Overall: cervical spine benign 11/05/2013 None Full Exam - General 1995 Neurologic deep tendon reflexes Overall: deep tendon reflexes intact 11/05/2013 None Full Exam - General 1994 Neurologic gait Overall: no ataxia, no unsteadiness 11/05/2013 None Full Exam - General 1995 Neurologic cranial nerves Overall: crainial nerves 2 - 12 grossly intact 11/05/2013 None Full Exam - General 1994 Psychiatric orientation/consciousness Overall: oriented to person, place and time 11/05/2013 None Full Exam - General 1995 Psychiatric mood and affect Overall: normal mood and affect 11/05/2013 None Full Exam - General 1995 Constitutional general appearance Overall: well nourished 07/17/2013 None Full Exam - General 1994 Constitutional general appearance Overall: well developed 07/17/2013 None Full Exam - General 1994 Constitutional general appearance Overall: in no acute distress 07/17/2013 None Full Exam - General 1994 Eyes pupils and irises Overall: pupils equal, round, reactive to light and accomodation 07/17/2013 None Full Exam - General 1994 Eyes conjunctiva /eyelids Overall: conjunctiva clear 07/17/2013 None Full Exam - General 1994 Eyes conjunctiva /eyelids Overall: eyelids normal 07/17/2013 None Full Exam - General 1994 Eyes conjunctiva /eyelids Overall: cornea clear 07/17/2013 None Full Exam - General 1994 Ears/Nose/Throat oral cavity/pharynx/larynx Overall: oropharyngeal mucosa clear 07/17/2013 None Full Exam - General 1995 Ears/Nose/Throat oral cavity/pharynx/larynx Overall: no masses 07/17/2013 None Full Exam - General 1995 Ears/Nose/Throat oral cavity/pharynx/larynx Overall: oral mucosa clear 07/17/2013 None Full Exam - General 1995 Ears/Nose/Throat otoscopic exam Overall: external auditory canals clear 07/17/2013 None Full Exam - General 1995 Ears/Nose/Throat otoscopic exam Tympanic membrane: a normal exam 07/17/2013 None Full Exam - General 1994 Respiratory auscultation Overall: breath sounds clear bilaterally 07/17/2013 None Full Exam - General 1994 Respiratory respiratory effort/rhythm Overall: normal rate 07/17/2013 None Full Exam - General 1994 Respiratory respiratory effort/rhythm Overall: no retractions 07/17/2013 None Full Exam - General 1994 Cardiovascular auscultation of heart Overall: regular rate 07/17/2013 None Full Exam - General 1994 Cardiovascular auscultation of heart Overall: normal heart sounds 07/17/2013 None Full Exam - General 1994 Cardiovascular auscultation of heart Overall: no murmurs 07/17/2013 None Full Exam - General 1994 Abdomen abdominal exam Overall: no tenderness 07/17/2013 None Full Exam - General 1994 Abdomen abdominal exam Overall: normal bowel sounds 07/17/2013 None Full Exam - General 1994 Integument inspection of skin Overall: no rash, lesions 07/17/2013 None Full Exam - General 1994 Ears/Nose/Throat otoscopic exam Tympanic membrane: perforated 07/17/2013 chronic Full Exam - General 1994 Psychiatric orientation/consciousness Overall: oriented to person, place and time 07/17/2013 None Full Exam - ENT Constitutional general appearance Overall: well nourished 06/07/2013 None Full Exam - ENT Constitutional general appearance Overall: well developed 06/07/2013 None Full Exam - ENT Constitutional general appearance Overall: in no acute distress 06/07/2013 None Full Exam - ENT Neurologic orientation Overall: oriented to person, place and time 06/07/2013 None Full Exam - ENT Lymphatic palpation of lymph nodes Overall: anterior cervical chain benign 06/07/2013 None Full Exam - ENT Lymphatic palpation of lymph nodes Overall: posterior cervical chain benign 06/07/2013 None Full Exam - ENT Cardiovascular auscultation of heart Overall: regular rate 06/07/2013 None Full Exam - ENT Cardiovascular auscultation of heart Overall: normal heart sounds 06/07/2013 None Full Exam - ENT Respiratory auscultation Overall: breath sounds clear bilaterally 06/07/2013 None Full Exam - ENT Respiratory inspection Overall: no retractions 06/07/2013 None Full Exam - ENT Respiratory inspection Overall: normal rate None Full Exam - ENT Face and Head palpation Overall: no sinus tenderness 06/07/2013 None Full Exam - ENT Ears/Nose/Throat otoscopic exam Overall: external auditory canals normal 06/07/2013 None Full Exam - ENT Ears/Nose/Throat otoscopic exam Overall: tympanic membranes normal 06/07/2013 None Full Exam - ENT Ears/Nose/Throat oropharynx Overall: oral mucosa clear 06/07/2013 None Full Exam - General 1994 Constitutional general appearance Overall: well developed 04/30/2013 None Full Exam - General 1994 Constitutional general appearance Overall: in no acute distress 04/30/2013 None Full Exam - General 1994 Constitutional general appearance Overall: well nourished 04/30/2013 None Full Exam - General 1994 Eyes pupils and irises Overall: pupils equal, round, reactive to light and accomodation 04/30/2013 None Full Exam - General 1995 Ears/Nose/Throat otoscopic exam Overall: external auditory canals clear 04/30/2013 None Full Exam - General 1994 Ears/Nose/Throat otoscopic exam Overall: tympanic membranes clear 04/30/2013 None Full Exam - General 1994 Ears/Nose/Throat oral cavity/pharynx/larynx Overall: oral mucosa clear 04/30/2013 None Full Exam - General 1994 Ears/Nose/Throat oral cavity/pharynx/larynx Overall: oropharyngeal mucosa clear 04/30/2013 None Full Exam - General 1994 Ears/Nose/Throat oral cavity/pharynx/larynx Overall: no masses 04/30/2013 None Full Exam - General 1994 Respiratory auscultation Overall: breath sounds clear bilaterally 04/30/2013 None Full Exam - General 1994 Respiratory respiratory effort/rhythm Overall: no retractions 04/30/2013 None Full Exam - General 1994 Respiratory respiratory effort/rhythm Overall: normal rate 04/30/2013 None Full Exam - General 1994 Cardiovascular extremities Overall: no clubbing 04/30/2013 None Full Exam - General 1994 Cardiovascular auscultation of heart Overall: regular rate 04/30/2013 None Full Exam - General 1994 Cardiovascular auscultation of heart Overall: normal heart sounds 04/30/2013 None Full Exam - General 1994 Cardiovascular auscultation of heart Overall: no murmurs 04/30/2013 None Full Exam - General 1994 Musculoskeletal head and neck Overall: head atraumatic 04/30/2013 None Full Exam - General 1994 Musculoskeletal head and neck Overall: cervical spine benign 04/30/2013 None Full Exam - General 1994 Neurologic deep tendon reflexes Overall: deep tendon reflexes intact 04/30/2013 None Full Exam - General 1994 Neurologic gait Overall: no ataxia, no unsteadiness 04/30/2013 None Full Exam - General 1994 Neurologic cranial nerves Overall: crainial nerves 2 - 12 grossly intact 04/30/2013 None Full Exam - General 1994 Psychiatric orientation/consciousness Overall: oriented to person, place and time 04/30/2013 None Full Exam - General 1994 Psychiatric mood and affect Overall: normal mood and affect 04/30/2013 None Full Exam - General 1995 Constitutional general appearance Overall: well developed 01/29/2013 None Full Exam - General 1995 Constitutional general appearance Overall: in no acute distress 01/29/2013 None Full Exam - General 1994 Constitutional general appearance Overall: well nourished 01/29/2013 None Full Exam - General 1994 Eyes pupils and irises Overall: pupils equal, round, reactive to light and accomodation 01/29/2013 None Full Exam - General 1994 Respiratory auscultation Overall: breath sounds clear bilaterally 01/29/2013 None Full Exam - General 1994 Respiratory respiratory effort/rhythm Overall: no retractions 01/29/2013 None Full Exam - General 1994 Respiratory respiratory effort/rhythm Overall: normal rate 01/29/2013 None Full Exam - General 1994 Cardiovascular extremities Overall: no clubbing 01/29/2013 None Full Exam - General 1994 Cardiovascular auscultation of heart Overall: regular rate 01/29/2013 None Full Exam - General 1994 Cardiovascular auscultation of heart Overall: normal heart sounds 01/29/2013 None Full Exam - General 1994 Cardiovascular auscultation of heart Overall: no murmurs 01/29/2013 None Full Exam - General 1994 Musculoskeletal head and neck Overall: head atraumatic 01/29/2013 None Full Exam - General 1994 Musculoskeletal head and neck Overall: cervical spine benign 01/29/2013 None Full Exam - General 1994 Neurologic deep tendon reflexes Overall: deep tendon reflexes intact 01/29/2013 None Full Exam - General 1994 Neurologic gait Overall: no ataxia, no unsteadiness 01/29/2013 None Full Exam - General 1994 Neurologic cranial nerves Overall: crainial nerves 2 - 12 grossly intact 01/29/2013 None Full Exam - General 1994 Psychiatric orientation/consciousness Overall: oriented to person, place and time 01/29/2013 None Full Exam - General 1994 Psychiatric mood and affect Overall: normal mood and affect 01/29/2013 None Full Exam - General 1994 Ears/Nose/Throat oral cavity/pharynx/larynx Overall: oropharyngeal mucosa clear 01/29/2013 None Full Exam - General 1994 Ears/Nose/Throat oral cavity/pharynx/larynx Overall: no masses 01/29/2013 None Full Exam - General 1994 Ears/Nose/Throat oral cavity/pharynx/larynx Overall: oral mucosa clear 01/29/2013 None Full Exam - General 1995 Ears/Nose/Throat otoscopic exam Overall: tympanic membranes clear 01/29/2013 None Full Exam - General 1995 Ears/Nose/Throat otoscopic exam Overall: external auditory canals clear 01/29/2013 None Full Exam - General 1994 Constitutional general appearance Overall: well developed 10/30/2012 None Full Exam - General 1995 Constitutional general appearance Overall: in no acute distress 10/30/2012 None Full Exam - General 1995 Constitutional general appearance Overall: well nourished 10/30/2012 None Full Exam - General 1994 Eyes pupils and irises Overall: pupils equal, round, reactive to light and accomodation 10/30/2012 None Full Exam - General 1994 Respiratory auscultation Overall: breath sounds clear bilaterally 10/30/2012 None Full Exam - General 1994 Respiratory respiratory effort/rhythm Overall: no retractions 10/30/2012 None Full Exam - General 1994 Respiratory respiratory effort/rhythm Overall: normal rate 10/30/2012 None Full Exam - General 1994 Cardiovascular extremities Overall: no clubbing 10/30/2012 None Full Exam - General 1994 Cardiovascular auscultation of heart Overall: regular rate 10/30/2012 None Full Exam - General 1994 Cardiovascular auscultation of heart Overall: normal heart sounds 10/30/2012 None Full Exam - General 1994 Cardiovascular auscultation of heart Overall: no murmurs 10/30/2012 None Full Exam - General 1994 Musculoskeletal head and neck Overall: head atraumatic 10/30/2012 None Full Exam - General 1994 Musculoskeletal head and neck Overall: cervical spine benign 10/30/2012 None Full Exam - General 1994 Neurologic deep tendon reflexes Overall: deep tendon reflexes intact 10/30/2012 None Full Exam - General 1994 Neurologic gait Overall: no ataxia, no unsteadiness 10/30/2012 None Full Exam - General 1994 Neurologic cranial nerves Overall: crainial nerves 2 - 12 grossly intact 10/30/2012 None Full Exam - General 1994 Psychiatric orientation/consciousness Overall: oriented to person, place and time 10/30/2012 None Full Exam - General 1994 Psychiatric mood and affect Overall: normal mood and affect 10/30/2012 None Full Exam - General 1994 Ears/Nose/Throat oral cavity/pharynx/larynx Overall: no masses 07/12/2012 None Full Exam - General 1994 Neck thyroid Overall: normal size None Full Exam - General 1994 Neck thyroid Overall: no mass lesions 07/12/2012 None Full Exam - General 1994 Respiratory auscultation Overall: breath sounds clear bilaterally 07/12/2012 None Full Exam - General 1994 Respiratory respiratory effort/rhythm Overall: no retractions 07/12/2012 None Full Exam - General 1994 Respiratory respiratory effort/rhythm Overall: normal rate 07/12/2012 None Full Exam - General 1994 Cardiovascular extremities Overall: no clubbing 07/12/2012 None Full Exam - General 1994 Cardiovascular auscultation of heart Overall: regular rate 07/12/2012 None Full Exam - General 1994 Cardiovascular auscultation of heart Overall: normal heart sounds 07/12/2012 None Full Exam - General 1994 Cardiovascular auscultation of heart Overall: no murmurs 07/12/2012 None Full Exam - General 1994 Abdomen abdominal exam Overall: no tenderness 07/12/2012 None Full Exam - General 1994 Abdomen abdominal exam Overall: normal bowel sounds 07/12/2012 None Full Exam - General 1994 Abdomen liver and spleen exam Overall: no hepatosplenomegaly 07/12/2012 None Full Exam - General 1994 Abdomen liver and spleen exam Overall: no stigmata of chronic liver disease 07/12/2012 None Full Exam - General 1994 Constitutional general appearance Overall: well developed 07/12/2012 None Full Exam - General 1994 Constitutional general appearance Overall: in no acute distress 07/12/2012 None Full Exam - General 1994 Constitutional general appearance Overall: well nourished 07/12/2012 None Full Exam - General 1994 Eyes pupils and irises Overall: pupils equal, round, reactive to light and accomodation 07/12/2012 None Full Exam - General 1994 Ears/Nose/Throat otoscopic exam Overall: external auditory canals clear 07/12/2012 None Full Exam - General 1994 Ears/Nose/Throat otoscopic exam Overall: tympanic membranes clear 07/12/2012 None Full Exam - General 1995 Ears/Nose/Throat oral cavity/pharynx/larynx Overall: oral mucosa clear 07/12/2012 None Full Exam - General 1994 Ears/Nose/Throat oral cavity/pharynx/larynx Overall: oropharyngeal mucosa clear 07/12/2012 None Full Exam - General 1994 Musculoskeletal head and neck Overall: head atraumatic 07/12/2012 None Full Exam - General 1994 Musculoskeletal head and neck Overall: cervical spine benign 07/12/2012 None Full Exam - General 1994 Neurologic deep tendon reflexes Overall: deep tendon reflexes intact 07/12/2012 None Full Exam - General 1994 Neurologic gait Overall: no ataxia, no unsteadiness 07/12/2012 None Full Exam - General 1994 Neurologic cranial nerves Overall: crainial nerves 2 - 12 grossly intact 07/12/2012 None Full Exam - General 1994 Psychiatric orientation/consciousness Overall: oriented to person, place and time 07/12/2012 None Full Exam - General 1994 Psychiatric mood and affect Overall: normal mood and affect 07/12/2012 None Full Exam - General 1994 Respiratory auscultation Overall: breath sounds clear bilaterally 06/07/2012 None Full Exam - General 1994 Respiratory respiratory effort/rhythm Overall: no retractions 06/07/2012 None Full Exam - General 1994 Respiratory respiratory effort/rhythm Overall: normal rate 06/07/2012 None Full Exam - General 1994 Cardiovascular auscultation of heart Overall: regular rate 06/07/2012 None Full Exam - General 1994 Cardiovascular auscultation of heart Overall: normal heart sounds 06/07/2012 None Full Exam - General 1994 Cardiovascular auscultation of heart Overall: no murmurs 06/07/2012 None Full Exam - General 1994 Cardiovascular extremities Overall: no clubbing 06/07/2012 None Full Exam - General 1994 Abdomen abdominal exam Overall: no tenderness 06/07/2012 None Full Exam - General 1994 Abdomen abdominal exam Overall: normal bowel sounds 06/07/2012 None Full Exam - General 1994 Abdomen liver and spleen exam Overall: no hepatosplenomegaly 06/07/2012 None Full Exam - General 1994 Abdomen liver and spleen exam Overall: no stigmata of chronic liver disease 06/07/2012 None Full Exam - General 1994 Musculoskeletal head and neck Overall: head atraumatic 06/07/2012 None Full Exam - General 1994 Musculoskeletal head and neck Overall: cervical spine benign 06/07/2012 None Full Exam - General 1994 Neurologic deep tendon reflexes Overall: deep tendon reflexes intact 06/07/2012 None Full Exam - General 1994 Neurologic gait Overall: no ataxia, no unsteadiness 06/07/2012 None Full Exam - General 1994 Neurologic cranial nerves Overall: crainial nerves 2 - 12 grossly intact 06/07/2012 None Full Exam - General 1994 Psychiatric orientation/consciousness Overall: oriented to person, place and time 06/07/2012 None Full Exam - General 1994 Psychiatric mood and affect Overall: normal mood and affect 06/07/2012 None Full Exam - General 1994 Constitutional general appearance Overall: well developed 06/07/2012 None Full Exam - General 1994 Constitutional general appearance Overall: in no acute distress 06/07/2012 None Full Exam - General 1994 Constitutional general appearance Overall: well nourished 06/07/2012 None Full Exam - General 1994 Eyes pupils and irises Overall: pupils equal, round, reactive to light and accomodation 06/07/2012 None Full Exam - General 1994 Ears/Nose/Throat otoscopic exam Overall: external auditory canals clear 06/07/2012 None Full Exam - General 1994 Ears/Nose/Throat otoscopic exam Overall: tympanic membranes clear 06/07/2012 None Full Exam - General 1994 Ears/Nose/Throat oral cavity/pharynx/larynx Overall: oral mucosa clear 06/07/2012 None Full Exam - General 1994 Ears/Nose/Throat oral cavity/pharynx/larynx Overall: oropharyngeal mucosa clear 06/07/2012 None Full Exam - General 1994 Ears/Nose/Throat oral cavity/pharynx/larynx Overall: no masses 06/07/2012 None Full Exam - General 1994 Neck thyroid Overall: normal size None Full Exam - General 1994 Neck thyroid Overall: no mass lesions 06/07/2012 None Full Exam - General 1994 Neurologic gait Overall: no ataxia, no unsteadiness 12/01/2011 None Full Exam - General 1994 Lymphatic neck nodes Overall: shotty lymphadenopathy 12/01/2011 None Full Exam - General 1994 Cardiovascular auscultation of heart Overall: regular rate 12/01/2011 None Full Exam - General 1994 Cardiovascular auscultation of heart Overall: normal heart sounds 12/01/2011 None Full Exam - General 1994 Cardiovascular auscultation of heart Overall: no murmurs 12/01/2011 None Full Exam - General 1994 Respiratory auscultation Overall: breath sounds clear bilaterally 12/01/2011 None Full Exam - General 1994 Respiratory respiratory effort/rhythm Overall: normal rate 12/01/2011 None Full Exam - General 1994 Respiratory respiratory effort/rhythm Overall: no retractions 12/01/2011 None Full Exam - General 1994 Ears/Nose/Throat otoscopic exam Overall: external auditory canals clear 12/01/2011 None Full Exam - General 1994 Ears/Nose/Throat otoscopic exam Tympanic membrane: retracted 12/01/2011 with post surgical changes Full Exam - General 1995 Ears/Nose/Throat otoscopic exam Tympanic membrane: air- fluid level 12/01/2011 None Full Exam - General 1995 Ears/Nose/Throat oral cavity/pharynx/larynx Posterior Pharynx: cobblestoned 12/01/2011 None Full Exam - General 1995 Ears/Nose/Throat oral cavity/pharynx/larynx Oral mucosa: a normal exam 12/01/2011 None Full Exam - General 1995 Ears/Nose/Throat oral cavity/pharynx/larynx Oropharynx: erythema 12/01/2011 None Full Exam - General 1995 Psychiatric orientation/consciousness Overall: oriented to person, place and time 12/01/2011 None Full Exam - General 1994 Psychiatric mood and affect Mood: happy 12/01/2011 None Full Exam - General 1994 Psychiatric mood and affect Overall: normal mood and affect 12/01/2011 None Full Exam - General 1994 Eyes pupils and irises Overall: pupils equal, round, reactive to light and accomodation 12/01/2011 None Full Exam - General 1994 Constitutional general appearance Overall: well nourished 12/01/2011 None Full Exam - General 1994 Constitutional general appearance Overall: well developed 12/01/2011 None Full Exam - General 1994 Constitutional general appearance Overall: in no acute distress 12/01/2011 None Full Exam - General 1994 Constitutional general appearance Overall: well nourished 11/18/2011 None Full Exam - General 1994 Constitutional general appearance Overall: well developed 11/18/2011 None Full Exam - General 1994 Constitutional general appearance Overall: in no acute distress 11/18/2011 None Full Exam - General 1994 Respiratory auscultation Overall: breath sounds clear bilaterally 11/18/2011 None Full Exam - General 1994 Respiratory respiratory effort/rhythm Overall: normal rate 11/18/2011 None Full Exam - General 1994 Respiratory respiratory effort/rhythm Overall: no retractions 11/18/2011 None Full Exam - General 1994 Cardiovascular auscultation of heart Overall: regular rate 11/18/2011 None Full Exam - General 1994 Cardiovascular auscultation of heart Overall: normal heart sounds 11/18/2011 None Full Exam - General 1994 Cardiovascular auscultation of heart Overall: no murmurs 11/18/2011 None Full Exam - General 1994 Integument inspection of skin Location: back 11/18/2011 2 sutures removed from the biopsy site on her upper back. neosporin and bandaid placed over the lesion - healing well, no sign of infection Full Exam - Dermatology Integument insp & palp - back Lesion: macule 11/09/2011 None Full Exam - Dermatology Integument insp & palp - back Distribution: isolated 11/09/2011 None Full Exam - Dermatology Integument insp & palp - back Location: on the mid back 11/09/2011 lesion in the mid back - appearance of irregular borders, heart shaped - with heart lying on side with point toward the right scapula. Biopsy sterile procedure - numbed with lidocaine with epinephrine 1.5mL into skin tissue, then prepped with iodine, drapped, and the lesion was biopsied with 8mm punch, 11 blade used to cut off the punch biopsy tissue, and two sutures placed in the wound. The lesion was marked in the right edge of the middle of the biopsy field. Full Exam - Dermatology Integument insp & palp - back Color: dark brown 11/09/2011 None Full Exam - Dermatology Integument insp & palp - back Shape: irregular 11/09/2011 None Full Exam - Dermatology Integument insp & palp - back Width: 5-10mm 11/09/2011 None Full Exam - Dermatology Integument insp & palp - back Consistency: soft 11/09/2011 None Full Exam - Dermatology Psychiatric mood and affect Overall: normal mood and affect 11/09/2011 None Full Exam - Dermatology Psychiatric orientation Overall: oriented to person, place and time 11/09/2011 None Full Exam - Dermatology Constitutional general appearance Overall: well nourished 11/09/2011 None Full Exam - Dermatology Constitutional general appearance Overall: well developed 11/09/2011 None Full Exam - Dermatology Constitutional general appearance Overall: in no acute distress 11/09/2011 None Full Exam - Dermatology Respiratory respiratory effort/rhythm Overall: no retractions 11/09/2011 None Full Exam - Dermatology Respiratory respiratory effort/rhythm Overall: normal rate 11/09/2011 None Full Exam - General 1994 Neurologic gait Overall: no ataxia, no unsteadiness 10/27/2011 None Full Exam - General 1994 Neurologic cranial nerves Overall: crainial nerves 2 - 12 grossly intact 10/27/2011 None Full Exam - General 1994 Constitutional general appearance Overall: well nourished 10/27/2011 None Full Exam - General 1994 Constitutional general appearance Overall: well developed 10/27/2011 None Full Exam - General 1994 Constitutional general appearance Overall: in no acute distress 10/27/2011 None Full Exam - General 1994 Eyes pupils and irises Overall: pupils equal, round, reactive to light and accomodation 10/27/2011 None Full Exam - General 1994 Ears/Nose/Throat otoscopic exam Overall: tympanic membranes clear 10/27/2011 None Full Exam - General 1994 Ears/Nose/Throat otoscopic exam Overall: external auditory canals clear 10/27/2011 None Full Exam - General 1995 Ears/Nose/Throat oral cavity/pharynx/larynx Overall: oropharyngeal mucosa clear 10/27/2011 None Full Exam - General 1994 Ears/Nose/Throat oral cavity/pharynx/larynx Overall: no masses 10/27/2011 None Full Exam - General 1994 Ears/Nose/Throat oral cavity/pharynx/larynx Overall: oral mucosa clear 10/27/2011 None Full Exam - General 1994 Neck thyroid Overall: normal size 08/2012 None Full Exam - General 1994 Neck thyroid Overall: no mass lesions 10/27/2011 None Full Exam - General 1994 Respiratory respiratory effort/rhythm Overall: normal rate 10/27/2011 None Full Exam - General 1994 Psychiatric mood and affect Overall: normal mood and affect 10/27/2011 None Full Exam - General 1994 Psychiatric orientation/consciousness Overall: oriented to person, place and time 10/27/2011 None Full Exam - General 1994 Neurologic deep tendon reflexes Overall: deep tendon reflexes intact 10/27/2011 None Full Exam - General 1994 Respiratory respiratory effort/rhythm Overall: no retractions 10/27/2011 None Full Exam - General 1994 Respiratory auscultation Overall: breath sounds clear bilaterally 10/27/2011 None Full Exam - General 1994 Cardiovascular auscultation of heart Overall: regular rate 10/27/2011 None Full Exam - General 1994 Cardiovascular auscultation of heart Overall: normal heart sounds 10/27/2011 None Full Exam - General 1994 Cardiovascular auscultation of heart Overall: no murmurs 10/27/2011 None Full Exam - General 1994 Cardiovascular extremities Overall: no clubbing 10/27/2011 None Full Exam - General 1994 Abdomen abdominal exam Overall: no tenderness 10/27/2011 None Full Exam - General 1994 Abdomen abdominal exam Overall: normal bowel sounds 10/27/2011 None Full Exam - General 1994 Abdomen liver and spleen exam Overall: no hepatosplenomegaly 10/27/2011 None Full Exam - General 1994 Abdomen liver and spleen exam Overall: no stigmata of chronic liver disease 10/27/2011 None Full Exam - General 1994 Musculoskeletal head and neck Overall: cervical spine benign 10/27/2011 None Full Exam - General 1994 Musculoskeletal head and neck Overall: head atraumatic 10/27/2011 None Procedures Procedure Codes Date TRIAMCINOLONE ACET INJ NOS CPT-4: J3301 11/24/2018 TRIAMCINOLONE ACET INJ NOS CPT-4: J3301 09/26/2018 THER/PROPH/DIAG INJ SC/IM CPT-4: 35265 09/26/2018 IMMUNIZATION ADMIN CPT -4: 23787 06/27/2018 FLU VAC NO PRSV 4 RAHUL 3 YRS+ Formatting Model/CDA Sections, Assigned to/Zonia Martinez CPT-4: [id number] 06/27/2018 IMMUNIZATION ADMIN CPT -4: 29924 07/30/2016 IIV4 FLU VACC NO PRESERV ID SNOMED CT: 88939406 CPT-4: 21785 07/30/2016 TRIAMCINOLONE ACET INJ NOS CPT-4: J3301 01/14/2016 IMMUNIZATION ADMIN CPT -4: 43725 07/23/2015 IMMUNIZATION ADMIN EACH ADD CPT-4: 22683 07/23/2015 FLU VACC 4 RAHUL 3 YRS PLUS IM Formatting Model/CDA Sections, Assigned to SNOMED CT: [id number] CPT-4: [id number] 07/23/2015 THER/PROPH/DIAG INJ SC/IM CPT-4: 12381 05/02/2014 ROCEPHIN, PER 250 MG CPT-4: J0696 05/02/2014 TRIAMCINOLONE ACET INJ NOS CPT-4: J3301 05/02/2014 ROCEPHIN, PER 250 MG CPT-4: J0696 07/17/2013 TRIAMCINOLONE ACET INJ NOS CPT-4: J3301 06/07/2013 BIOPSY SKIN LESION CPT -4: 41770 11/09/2011 Vital Signs Date Vital 03/01/2019 Blood Pressure 1: 140/70 Code : 8480-6 BMI: 34.4 Code : 10108-6 Heart Rate 1 : 73 bpm Height: 5'8" SpO2: 96% Weight: 226 lbs 02/05/2019 Blood Pressure 1: 146/88 Code : 8480-6 BMI: 34.4 Code : 55117-6 Heart Rate 1 : 65 bpm Height: 5'8" SpO2: 98% Weight: 226 lbs 11/24/2018 Blood Pressure 1: 122/70 Code : 8480-6 BMI: 32.7 Code : 41333-1 Heart Rate 1 : 85 bpm Height: 5'8" SpO2: 98% Temperature: 36.6 (C) / 97.9 (F) Weight: 215 lbs 10/31/2018 Blood Pressure 1: 126/78 Code : 8480-6 BMI: 32.7 Code : 84219-4 Heart Rate 1 : 75 bpm Height: 5'8" SpO2: 97% Weight: 215 lbs 09/26/2018 Blood Pressure 1: 130/78 Code : 8480-6 BMI: 32.4 Code : 44603-3 Heart Rate 1 : 67 bpm Height: 5'8" SpO2: 97% Temperature: 36.5 (C) / 97.7 (F) Weight: 213 lbs 06/27/2018 Blood Pressure 1: 132/78 Code : 8480-6 BMI: 33.9 Code : 79641-7 Heart Rate 1 : 66 bpm Height: 5'8" SpO2: 95% Weight: 223 lbs 05/11/2018 Blood Pressure 1: 140/90 Code : 8480-6 BMI: 33.8 Code : 66628-0 Heart Rate 1 : 74 bpm Height: 5'8" SpO2: 98% Weight: 222 lbs 03/08/2017 Blood Pressure 1: 144/86 Code : 8480-6 BMI: 31.2 Code : 03883-7 Heart Rate 1 : 70 bpm Height: 5'8" SpO2: 98% Weight: 205 lbs 09/06/2016 Blood Pressure 1: 128/86 Code : 8480-6 BMI: 28.4 Code : 71900-6 Heart Rate 1 : 86 bpm Height: 5'8" SpO2: 96% Weight: 187 lbs 07/08/2016 Blood Pressure 1: 120/60 Code : 8480-6 BMI: 28.4 Code : 25815-4 Height: 5'8" Temperature: 37.8 (C) / 100.1 (F) Weight: 187 lbs 01/14/2016 Blood Pressure 1: 152/86 Code : 8480-6 BMI: 30.4 Code : 61769-5 Heart Rate 1 : 83 bpm Height: 5'8" SpO2: 97% Weight: 200 lbs 11/17/2015 Blood Pressure 1: 142/90 Code : 8480-6 BMI: 33.9 Code : 03633-2 Heart Rate 1 : 75 bpm Height: 5'8" SpO2: 97% Weight: 223 lbs 08/29/2015 BMI: 35.6 Code: 68513-0 Heart Rate 1: 94 bpm Height: 5'8" SpO2: 98% Weight: 234 lbs 01/27/2015 Blood Pressure 1: 140/94 Code : 8480-6 Heart Rate 1: 88 bpm Height: 5'8" SpO2: 98% Weight: 08/05/2014 Blood Pressure 1: 138/82 Code : 8480-6 BMI: 33.6 Code : 40579-9 Heart Rate 1 : 76 bpm Height: 5'8" Weight: 221 lbs 05/02/2014 Blood Pressure 1: 142/82 Code : 8480-6 Heart Rate 1: 84 bpm Height: SpO2: 100% Temperature: 37.1 (C) / 98.7 (F) Weight: 02/04/2014 Blood Pressure 1: 108/78 Code : 8480-6 BMI: 36.2 Code : 78849-4 Heart Rate 1 : 60 bpm Height: 5'8" Weight: 238 lbs 11/05/2013 Blood Pressure 1: 134/74 Code : 8480-6 BMI: 35.9 Code : 41662-0 Heart Rate 1 : 68 bpm Height: 5'8" Weight: 236 lbs 07/17/2013 Blood Pressure 1: 136/88 Code : 8480-6 BMI: 35.9 Code : 07949-4 Heart Rate 1 : 72 bpm Height: 5'8" Temperature: 36.4 (C) / 97.6 (F) Weight: 236 lbs 06/07/2013 Blood Pressure 1: 134/92 Code : 8480-6 Heart Rate 1: 72 bpm Temperature: 37.0 (C) / 98.6 (F) Weight: 04/30/2013 Blood Pressure 1: 148/78 Code : 8480-6 BMI: 35.1 Code : 31814-6 Heart Rate 1 : 64 bpm Height: 5'8" Weight: 231 lbs 01/29/2013 Blood Pressure 1: 128/84 Code : 8480-6 BMI: 34.4 Code : 89648-6 Heart Rate 1 : 76 bpm Height: 5'8" Weight: 226 lbs 10/30/2012 Blood Pressure 1: 118/72 Code : 8480-6 BMI: 33.5 Code : 27218-7 Heart Rate 1 : 64 bpm Height: 5'8" Weight: 220 lbs 07/12/2012 Blood Pressure 1: 134/88 Code : 8480-6 Heart Rate 1: 64 bpm Weight: 214 lbs 06/07/2012 Blood Pressure 1: 152/92 Code : 8480-6 Heart Rate 1: 68 bpm Respiratory Rate : 16 bpm Temperature: 36.7 (C) / 98.0 (F) Weight: 209 lbs 12/01/2011 Blood Pressure 1: 140/82 Code : 8480-6 BMI: 29.5 Code : 50533-7 Heart Rate 1 : 72 bpm Height: 5'8" Respiratory Rate: 16 bpm Temperature: 36.7 ( C) / 98.0 (F) Weight: 194 lbs 11/18/2011 Blood Pressure 1: 140/88 Code : 8480-6 Heart Rate 1: 76 bpm Respiratory Rate : 18 bpm Weight: 191 lbs 11/09/2011 Blood Pressure 1: 158/94 Code : 8480-6 Heart Rate 1: 76 bpm Respiratory Rate : 16 bpm Weight: 191 lbs 8 oz 10/27/2011 Blood Pressure 1: 144/90 Code : 8480-6 BMI: 29.3 Code : 45517-1 Heart Rate 1 : 76 bpm Height: 5'8" Respiratory Rate: 16 bpm Weight: 193 lbs Functional Status No Functional Status data History of Present Illness Symptom Name Status Result Effective Date Notes Quality intermittent 03/01/2019 None Onset and Resolution ongoing 03/01/2019 None Onset of Symptom _ years ago 03/01/2019 None Blood Pressure Values patient checking blood pressure at home - did not bring in readings 2018 None Pertinent Findings anxiety 03/01/2019 None Pertinent Findings Denies dizziness 03/01/2019 None Pertinent Findings Denies dyspnea 03/01/2019 with anxiety attacks Location in the throat 03/01/2019 None Quality dry 2018 None Onset and Resolution ongoing 03/01/2019 None Frequency of Episodes daily 03/01/2019 None Timing of Episodes at night 03/01/2019 None Pertinent Findings Denies chest discomfort 03/01/2019 None Pertinent Findings Denies dyspnea 03/01/2019 None Location frontal sinuses 02/05/2019 None Quality constant None Quality fullness None Quality pressure None Location in the throat 02/05/2019 None Quality dry 2018 None Quality interrupts sleep 02/05/2019 None Onset and Resolution sudden in onset 02/05/2019 None Onset of Symptom 2 weeks ago 02/05/2019 None Frequency of Episodes daily 02/05/2019 None Location both ears None Location diffusely None Quality aching 2018 None Quality scratchy None Onset and Resolution sudden in onset 02/05/2019 None Onset and Resolution sudden in onset 11/24/2018 None Onset of Symptom 2 weeks ago 11/24/2018 None Severity moderate 05/2019 None Frequency of Episodes increasing 11/24/2018 None Significant Medical Conditions allergic rhinitis 11/24/2018 None Significant Medications decongestants 11/24/2018 None Significant Medications nasal spray 11/24/2018 None Triggers no known associated factors 11/24/2018 None Pertinent Findings cough 11/24/2018 None Pertinent Findings decreased energy level 11/24/2018 None Location on both sides 11/24/2018 None Quality acute 2018 None Quality intermittent 10/31/2018 None Onset and Resolution ongoing 10/31/2018 None Onset of Symptom _ years ago 10/31/2018 None Blood Pressure Values patient checking blood pressure at home - did not bring in readings 2018 None Pertinent Findings anxiety 10/31/2018 None Pertinent Findings Denies dizziness 10/31/2018 None Pertinent Findings dyspnea 10/31/2018 with anxiety attacks Quality intermittent 10/31/2018 None Onset and Resolution ongoing 10/31/2018 None Pertinent Findings depressed mood 10/31/2018 None Pertinent Findings sleep disturbance 10/31/2018 trouble falling asleep and staying asleep Location frontal sinuses 09/26/2018 None Quality fullness 08/2018 None Quality pressure 08/2018 None Onset and Resolution sudden in onset 09/26/2018 None Onset of Symptom 10 days ago 09/26/2018 None Frequency of Episodes daily 09/26/2018 None Location both ears None Onset and Resolution sudden in onset 09/26/2018 None Onset of Symptom 10 days ago 09/26/2018 None Frequency of Episodes daily 09/26/2018 None Location diffusely None Quality aching 2017 None Quality constant 08/2018 None Quality pressure 08/2018 None Onset and Resolution sudden in onset 09/26/2018 None Location diffusely None Quality aching 2017 None Quality constant 08/2018 None Onset and Resolution sudden in onset 09/26/2018 None Onset of Symptom 10 days ago 09/26/2018 None Frequency of Episodes daily 09/26/2018 None hypertension Quality intermittent 06/27/2018 None hypertension Onset and Resolution ongoing 06/27/2018 None hypertension Onset of Symptom _ years ago 06/27/2018 None hypertension Blood Pressure Values patient checking blood pressure at home - did not bring in readings 06/27/2018 None hypertension Pertinent Findings anxiety 06/27/2018 None hypertension Pertinent Findings Denies dizziness 06/27/2018 None hypertension Pertinent Findings dyspnea 06/27/2018 with anxiety attacks depression Quality intermittent 06/27/2018 None depression Onset and Resolution ongoing 06/27/2018 None depression Onset of Symptom _ months ago 06/27/2018 None depression Pertinent Findings depressed mood 06/27/2018 None depression Pertinent Findings sleep disturbance 06/27/2018 trouble falling asleep and staying asleep hypertension Quality intermittent 05/11/2018 None hypertension Onset and Resolution ongoing 05/11/2018 None hypertension Onset of Symptom _ years ago 05/11/2018 None hypertension Blood Pressure Values patient checking blood pressure at home - did not bring in readings 05/11/2018 None hypertension Pertinent Findings Denies dizziness 05/11/2018 None hypertension Pertinent Findings dyspnea 05/11/2018 with anxiety attacks hypertension Pertinent Findings anxiety 05/11/2018 None ~generic Location diffusely 03/08/2017 None ~generic Pertinent Findings Denies fever 03/08/2017 None pruritus Location-Major on the arms 09/06/2016 None pruritus Onset of Symptom 2 months ago 09/06/2016 None pruritus Pertinent Findings itching 09/06/2016 None pruritus Pertinent Findings Denies pain 09/06/2016 None pruritus Location-Extremities on the right arm 09/06/2016 None fever Quality acute None fever Onset and Resolution ongoing 07/08/2016 None fever Onset of Symptom _ hours ago 07/08/2016 None fever Temperature 100-102 degrees 07/08/2016 None fever Frequency of Episodes unchanged 07/08/2016 None fever Triggers no known associated factors 07/08/2016 None fever Pertinent Findings cough 07/08/2016 None fever Pertinent Findings chills 07/08/2016 None fever Pertinent Findings nausea 07/08/2016 None fever Pertinent Findings Denies edema 07/08/2016 None fever Pertinent Findings Denies dyspnea 07/08/2016 None rash Color red 2015 None rash Onset and Resolution sudden in onset 01/14/2016 None rash Onset of Symptom 4 weeks ago 01/14/2016 None rash Triggers no known triggers 01/14/2016 None rash Pertinent Findings itching 01/14/2016 None shoulder pain Location on the right shoulder 11/17/2015 None shoulder pain Location on the left shoulder 11/17/2015 None shoulder pain Quality constant 11/17/2015 None shoulder pain Quality aching 11/17/2015 None shoulder pain Onset and Resolution ongoing 11/17/2015 None shoulder pain Pertinent Findings loss of range of motion 11/17/2015 None shoulder pain Pertinent Findings loss of strength 11/17/2015 None shoulder pain Limitation on Activities moderately limits activities 11/17/2015 None shoulder pain Frequency of Episodes increasing 11/17/2015 None shoulder pain Mechanism of injury unknown 11/17/2015 None shoulder pain Triggers activity 11/17/2015 lifting grandson cough Location in the throat 08/29/2015 None cough Quality productive 08/29/2015 None cough Onset and Resolution sudden in onset 08/29/2015 None cough Onset of Symptom 5 months ago 08/29/2015 None cough Frequency of Episodes daily 08/29/2015 None sore throat Location on both sides 08/29/2015 None sore throat Quality dull 08/29/2015 None sore throat Quality scratchy 08/29/2015 None sore throat Onset and Resolution sudden in onset 08/29/2015 None sore throat Onset of Symptom 5 days ago 08/29/2015 None sore throat Frequency of Episodes daily 08/29/2015 None sinus congestion Location on both sides 08/29/2015 None sinus congestion Quality fullness 08/29/2015 None sinus congestion Quality pressure 08/29/2015 None sinus congestion Onset and Resolution sudden in onset 08/29/2015 None sinus congestion Onset of Symptom 5 days ago 08/29/2015 None sinus congestion Frequency of Episodes daily 08/29/2015 None abdominal pain Location diffusely 08/29/2015 None abdominal pain Quality sharp 08/29/2015 None abdominal pain Onset and Resolution sudden in onset 08/29/2015 None abdominal pain Onset of Symptom 1 days ago 08/29/2015 None knee pain Location on the left 01/27/2015 None knee pain Onset of Symptom 3 days ago 01/27/2015 Denies injury- pain on back of knee Dr at ER told her he thought it was a ligament injury knee pain Pertinent Findings pain with movement 01/27/2015 None sore throat Location on both sides 01/27/2015 None sore throat Onset of Symptom 3 days ago 01/27/2015 throat is better, now just itchy cough Quality dry None cough Onset of Symptom 3 days ago 01/27/2015 clear runny nose cough Pertinent Findings chest discomfort 01/27/2015 None cough Pertinent Findings dyspnea 01/27/2015 [address], but not sure if this is due to her leg cough Pertinent Findings Denies fever 01/27/2015 None sore throat Quality acute 01/27/2015 None sore throat Onset and Resolution ongoing 01/27/2015 None sore throat Limitation on Activities does not limit oral intake 01/27/2015 None sore throat Frequency of Episodes unchanged 01/27/2015 None sore throat Significant Medical Conditions allergic rhinitis 01/27/2015 None sore throat Triggers no known associated factors 01/27/2015 None sore throat Pertinent Findings cough 01/27/2015 None sore throat Pertinent Findings decreased energy level 01/27/2015 None sore throat Pertinent Findings Denies ill contacts 01/27/2015 None cough Onset and Resolution ongoing 01/27/2015 None cough Limitation on Activities does not limit activities 01/27/2015 None cough Frequency of Episodes increasing 01/27/2015 None cough Triggers change of seasons 01/27/2015 None knee pain Quality acute 01/27/2015 None knee pain Onset and Resolution sudden in onset 01/27/2015 None knee pain Limitation on Activities allows weight bearing activity 01/27/2015 with pain knee pain Significant Medical Conditions obesity 01/27/2015 None knee pain Severity moderate 01/27/2015 improved with pain medication knee pain Significant Medications NSAID' s 01/27/2015 hydrocodone knee pain Mechanism of injury unknown 01/27/2015 None knee pain Sports Participation not significant 01/27/2015 None knee pain Exacerbating Factors weight bearing 01/27/2015 None knee pain Alleviating Factors rest 01/27/2015 None knee pain Pertinent Findings limping 01/27/2015 None knee pain Pertinent Findings Denies swelling 01/27/2015 None hypertension Quality chronic 08/05/2014 None hypertension Onset and Resolution ongoing 08/05/2014 None hypertension Onset of Symptom during adulthood 08/05/2014 None hypertension Blood Pressure Values pt checking blood pressure - see scanned document 08/05/2014 None hypertension Alleviating Factors medication 08/05/2014 None hypertension Pertinent Findings Denies anxiety 08/05/2014 None hypertension Pertinent Findings Denies decreased energy 08/05/2014 None wrist stiffness Location on the left 08/05/2014 None wrist stiffness Quality intermittent 08/05/2014 worse with use wrist stiffness Severity moderate 08/05/2014 None sinus congestion Quality fullness 05/02/2014 None sinus congestion Onset of Symptom 4 days ago 05/02/2014 None sinus congestion Pertinent Findings fever 05/02/2014 None sinus congestion Pertinent Findings cough 05/02/2014 None sinus congestion Pertinent Findings hoarseness 05/02/2014 None sinus congestion Severity moderate 05/02/2014 None sinus congestion Frequency of Episodes increasing 05/02/2014 None sinus congestion Significant Medical Conditions allergic rhinitis 05/02/2014 None sinus congestion Triggers allergens 05/02/2014 None sinus congestion Location on both sides 05/02/2014 None hypertension Blood Pressure Values pt checking blood pressure - see scanned document 02/04/2014 None hypertension Pertinent Findings dizziness 02/04/2014 None hypertension Pertinent Findings Denies dyspnea 02/04/2014 None hypertension Pertinent Findings Denies edema 02/04/2014 None hypertension Pertinent Findings palpitations 02/04/2014 None hypertension Quality chronic 02/04/2014 None hypertension Quality improving 02/04/2014 None hypertension Onset and Resolution ongoing 02/04/2014 None hypertension Onset of Symptom during adulthood 02/04/2014 None hypertension Severity mild 02/04/2014 None hypertension Pertinent Findings decreased energy 02/04/2014 None hypertension Quality chronic 11/05/2013 None hypertension Blood Pressure Values pt checking blood pressure - see scanned document 11/05/2013 None hypertension Onset and Resolution ongoing 11/05/2013 None hypertension Onset of Symptom during adulthood 11/05/2013 None hypertension Alleviating Factors medication 11/05/2013 None hypertension Pertinent Findings Denies anxiety 11/05/2013 None hypertension Pertinent Findings Denies decreased energy 11/05/2013 None sore throat Location on both sides 07/17/2013 None sore throat Quality aching 07/17/2013 None sore throat Quality scratchy 07/17/2013 None sore throat Onset and Resolution sudden in onset 07/17/2013 None sore throat Onset and Resolution ongoing 07/17/2013 None sore throat Onset of Symptom 1 weeks ago 07/17/2013 None sore throat Pertinent Findings cough 07/17/2013 None sore throat Pertinent Findings decreased energy level 07/17/2013 None sore throat Pertinent Findings Denies fever 07/17/2013 None sore throat Pertinent Findings hoarseness 07/17/2013 None sore throat Pertinent Findings nasal congestion 07/17/2013 None sore throat Pertinent Findings poor feeding 07/17/2013 None sore throat Alleviating Factors medication 07/17/2013 coricidin sore throat Quality improving 07/17/2013 None sore throat Limitation on Activities does not limit oral intake 07/17/2013 None sore throat Frequency of Episodes increasing 07/17/2013 None sore throat Significant Medical Conditions allergic rhinitis 07/17/2013 None sore throat Triggers no known associated factors 07/17/2013 None cough Quality acute None cough Onset of Symptom 2 weeks ago 06/07/2013 non productive sore throat Location in the left peritonsillar area 06/07/2013 None sore throat Quality acute 06/07/2013 None sore throat Onset of Symptom 2 weeks ago 06/07/2013 None cough Onset and Resolution ongoing 06/07/2013 None sore throat Limitation on Activities does not limit oral intake 06/07/2013 None sore throat Frequency of Episodes increasing 06/07/2013 None sore throat Triggers swallowing 06/07/2013 None sore throat Triggers allergens 06/07/2013 None sore throat Alleviating Factors medication 06/07/2013 None hypertension Quality chronic 04/30/2013 None hypertension Quality stable 04/30/2013 None hypertension Onset and Resolution ongoing 04/30/2013 None hypertension Onset of Symptom during adulthood 04/30/2013 None hypertension Blood Pressure Values patient checking blood pressure at home - did not bring in readings 04/30/2013 None hypertension Frequency of Episodes decreasing 04/30/2013 None hypertension Triggers stress 04/30/2013 None hypertension Alleviating Factors medication 04/30/2013 None hypertension Quality chronic 01/29/2013 None hypertension Onset and Resolution ongoing 01/29/2013 None hypertension Blood Pressure Values patient checking blood pressure at home - did not bring in readings 01/29/2013 None hypertension Quality stable 01/29/2013 None hypertension Onset of Symptom during adulthood 01/29/2013 None hypertension Frequency of Episodes decreasing 01/29/2013 None hypertension Triggers stress 01/29/2013 None hypertension Alleviating Factors medication 01/29/2013 None hypertension Quality stable 10/30/2012 None hypertension Onset and Resolution ongoing 10/30/2012 None hypertension Onset of Symptom during adulthood 10/30/2012 None hypertension Blood Pressure Values patient checking blood pressure at home - did not bring in readings 10/30/2012 None hypertension Severity not consistently severe symptoms, the symptoms fluctuate from no symptoms to anxiety and headaches 10/30/2012 None hypertension Frequency of Episodes decreasing 10/30/2012 None hypertension Triggers stress 10/30/2012 None hypertension Alleviating Factors medication 10/30/2012 None anxiety Quality stable 10/30/2012 None anxiety Onset and Resolution ongoing 10/30/2012 None anxiety Onset of Symptom during adulthood 10/30/2012 None anxiety Limitation on Activities does not limit activities 10/30/2012 None anxiety Frequency of Episodes decreasing 10/30/2012 None anxiety Triggers stress 10/30/2012 None anxiety Onset and Resolution ongoing 07/12/2012 None anxiety Onset of Symptom during adulthood 07/12/2012 None anxiety Limitation on Activities does not limit activities 07/12/2012 None anxiety Frequency of Episodes decreasing 07/12/2012 None anxiety Triggers stress 07/12/2012 None hypertension Quality stable 07/12/2012 None hypertension Onset and Resolution ongoing 07/12/2012 None hypertension Onset of Symptom during adulthood 07/12/2012 None hypertension Blood Pressure Values patient checking blood pressure at home - did not bring in readings 07/12/2012 None hypertension Severity not consistently severe symptoms, the symptoms fluctuate from no symptoms to anxiety and headaches 07/12/2012 None hypertension Frequency of Episodes decreasing 07/12/2012 None hypertension Triggers stress 07/12/2012 None hypertension Alleviating Factors medication 07/12/2012 None anxiety Quality stable 07/12/2012 None insomnia Quality acute 06/07/2012 None insomnia Quality difficulty falling asleep 06/07/2012 None insomnia Quality worsening 06/07/2012 None insomnia Pertinent Findings depressed mood 06/07/2012 None insomnia Pertinent Findings Denies leg cramps 06/07/2012 None hip pain Location hip with low back pain 06/07/2012 right side hip pain Quality sharp pain 06/07/2012 None hip pain Quality intermittent 06/07/2012 None anxiety Quality acute 06/07/2012 tearful anxiety Onset and Resolution gradual in onset 06/07/2012 changes in work and mother has lung cancer sore throat Location in the left peritonsillar area 06/07/2012 None sore throat Onset and Resolution sudden in onset 06/07/2012 None sore throat Onset of Symptom 1 days ago 06/07/2012 c/o nasal drainage sore throat Pertinent Findings Denies cough 06/07/2012 None sore throat Pertinent Findings Denies hoarseness 06/07/2012 None hypertension Quality chronic 06/07/2012 None hypertension Onset and Resolution ongoing 06/07/2012 None chest pain/pressure Location in the epigastric area 06/07/2012 None chest pain/pressure Quality worsening 06/07/2012 None chest pain/pressure Pertinent Findings palpitations 06/07/2012 feels like heart is pounding chest pain/pressure Onset of Symptom 4 weeks ago 06/07/2012 None hypertension Quality chronic 12/01/2011 None sore throat Triggers swallowing 12/01/2011 None sore throat Pertinent Findings cough 12/01/2011 None sore throat Pertinent Findings ill contacts 12/01/2011 None sore throat Pertinent Findings hoarseness 12/01/2011 None sore throat Pertinent Findings nasal congestion 12/01/2011 None hypertension Severity mild 12/01/2011 None hypertension Frequency of Episodes daily 12/01/2011 None hypertension Alleviating Factors medication 12/01/2011 None hypertension Pertinent Findings Denies decreased energy 12/01/2011 None hypertension Pertinent Findings Denies dizziness 12/01/2011 None cough Location in the lung 12/01/2011 None cough Onset and Resolution sudden in onset 12/01/2011 None cough Onset of Symptom 1 days ago 12/01/2011 None sore throat Onset and Resolution sudden in onset 12/01/2011 None cough Triggers ill contacts 12/01/2011 None cough Triggers post nasal drip 12/01/2011 None cough Pertinent Findings Denies chills 12/01/2011 None cough Pertinent Findings hoarseness 12/01/2011 None cough Pertinent Findings ill contacts 12/01/2011 None cough Pertinent Findings lethargy 12/01/2011 None cough Pertinent Findings muscle aches 12/01/2011 None sore throat Quality acute 12/01/2011 None sore throat Quality burning 12/01/2011 None sore throat Quality scratchy 12/01/2011 None sore throat Quality worsening 12/01/2011 None hypertension Quality chronic 11/18/2011 None hypertension Blood Pressure Values pt checking blood pressure - see scanned document 11/18/2011 None hypertension Severity mild 11/18/2011 None hypertension Frequency of Episodes daily 11/18/2011 None hypertension Alleviating Factors medication 11/18/2011 None hypertension Pertinent Findings Denies dizziness 11/18/2011 None hypertension Pertinent Findings Denies decreased energy 11/18/2011 None blood pressure followup Onset and Resolution ongoing 11/09/2011 None blood pressure followup Blood Pressure Values not checking blood pressure at home 11/09/2011 None blood pressure followup Severity mild 11/09/2011 None blood pressure followup Triggers no known associated factors 11/09/2011 None blood pressure followup Exacerbating Factors stress 11/09/2011 None insomnia Onset and Resolution ongoing 10/27/2011 states has used melatonin and ambien with no relief insomnia Frequency of Episodes daily 10/27/2011 None insomnia Triggers stress 10/27/2011 None weight gain/obesity Quality worsening 10/27/2011 states had lost 50 pounds but is gradually gaining it back insomnia Quality disrupted sleep 10/27/2011 she can fall asleep watching TV, GETS up to go to bed and then cannot stay asleep the rest of the night. insomnia Onset of Symptom 1 years ago 10/27/2011 None insomnia Pertinent Findings Denies depressed mood 10/27/2011 None insomnia Pertinent Findings Denies leg cramps 10/27/2011 None weight gain/obesity Location globally 10/27/2011 None weight gain/obesity Onset of Symptom 4 months ago 10/27/2011 None weight gain/obesity Exacerbating Factors change in dietary habits 10/27/2011 None weight gain/obesity Pertinent Findings Denies depressed mood 10/27/2011 None Advance Directives No Advance Directive data Encounters Encounter Performer Location Codes Date [id number]) [id number] EST. PATIENT, LEVEL III Diagnosis: Essential (primary) hypertension[ICD10: I10] Diagnosis: Major depressive disorder, recurrent, moderate[ICD10: F33.1] [facility] CPT-4: 64086 03/01/2019 [id number] EST. PATIENT, LEVEL IV Diagnosis: Other acute sinusitis[ICD10: J01.80] Diagnosis: Other allergic rhinitis[ICD10: J30.89] [facility] CPT-4: 06726 02/05/[id number]) [id number] EST. PATIENT, LEVEL III Diagnosis: Cough[ICD10: R05] Diagnosis: Acute upper respiratory infection, unspecified[ICD10: J06.9] Che Olivares MD, [facility] CPT-4: 49997 11/24/2018 ([id number]) 89477 EST. PATIENT, LEVEL III Diagnosis: Essential (primary) hypertension[ICD10: I10] Diagnosis: Major depressive disorder, recurrent, moderate[ICD10: F33.1] Diagnosis: Other insomnia[ICD10: G47.09] Verona Olivares MD, [facility] CPT- 4: 76183 10/31/2018 13513 EST. PATIENT, LEVEL III Diagnosis: Acute laryngopharyngitis[ICD10: J06.0] Diagnosis: Other allergic rhinitis[ICD10: J30.89] Solange Olivares MD, [facility] CPT-4: 63992 09/26/2018 ([id number]) 22814 EST. PATIENT, LEVEL III Diagnosis: Essential (primary) hypertension[ICD10: I10] Diagnosis: Major depressive disorder, recurrent, moderate[ICD10: F33.1] Diagnosis: Generalized anxiety disorder[ICD10: F41.1] Diagnosis: Encounter for immunization[ICD10: Z23] Verona Olivares MD, [facility] CPT-4: 56252 06/27/2018 ([id number]) 04712 EST. PATIENT, LEVEL IV Diagnosis: Essential (primary) hypertension[ICD10: I10] Diagnosis: Major depressive disorder, recurrent, moderate[ICD10: F33.1] Diagnosis: Generalized anxiety disorder[ICD10: F41.1] Verona Olivares MD, [facility] CPT-4: 93663 05/11/2018 ([id number]) 54872 EST. PATIENT, LEVEL III Diagnosis: Acute recurrent maxillary sinusitis[ICD10: J01.01] Diagnosis: Other hallucinations[ICD10: R44.2] Diagnosis: Allergic rhinitis due to pollen[ICD10: J30.1] Che Olivares MD, [facility] CPT-4: 39563 03/08/2017 ([id number]) 31038 EST. PATIENT, LEVEL II Diagnosis: Cellulitis of right upper limb[ICD10: L03.113] Che Olivares MD, [facility] CPT-4: 01765 09/06/2016 ([id number]) 77638 EST. PATIENT, LEVEL III Diagnosis: Cough[ICD10: R05] Diagnosis: Fever, unspecified[ICD10: R50.9] Diagnosis: Pain, unspecified[ICD10: R52] Che Olivares MD, [facility] CPT-4: 05513 07/08/2016 40994 EST. PATIENT, LEVEL IV Diagnosis: Rash and other nonspecific skin eruption[ICD10: R21] Solange Olivares MD, [facility] CPT-4: 26727 01/14/2016 ([id number]) 00905 EST. PATIENT, LEVEL III Diagnosis: Pain in left shoulder[ICD10: M25.512] Diagnosis: Pain in right shoulder[ICD10: M25.511] Diagnosis: Bicipital tendinitis, left shoulder[ICD10: M75.22] Che Olivares MD, [facility] CPT-4: 95753 11/17/2015 67529 EST. PATIENT, LEVEL IV Diagnosis: Epigastric pain[ICD10: R10.13] Diagnosis: Acute upper respiratory infection, unspecified[ICD10: J06.9] Solange Olivares MD , [facility] CPT-4: 17720 08/29/2015 ([id number]) 67678 EST. PATIENT, LEVEL III Diagnosis: Left knee pain[ICD9: 719.46] Diagnosis: ACUTE URI[ICD9: 465.9] Diagnosis: ALLERGIC RHINITIS[ICD9: 477.9] Che Olivares MD, [facility] CPT-4: 97517 01/27/2015 ([id number]) 66740 EST. PATIENT, LEVEL III Diagnosis: Elevated blood pressure (not hypertension)[ICD9: 796.2] Diagnosis: Biceps tendinitis[ICD9: 726.12] Diagnosis: Wrist pain, acute[ICD9: 719.43] Verona Olivares MD, [facility] CPT- 4: 73549 08/05/2014 ([id number]) 52045 EST. PATIENT, LEVEL III Diagnosis: Acute maxillary sinusitis[ICD9: 461.0] Verona Olivares MD, [facility] CPT-4: 42377 05/02/2014 ([id number]) 71462 EST. PATIENT, LEVEL III Diagnosis: INSOMNIA IN OTHER DIS[ICD9: 327.01] Verona Olivares MD, [facility] CPT-4: 14718 02/04/2014 ([id number]) 13308 EST. PATIENT, LEVEL III Diagnosis: ESSENTIAL HYPERTENSION[SNOMED: [id number]] Diagnosis: DEPRESSIVE DISORDER NEC[ICD9: 311] Verona Olivares MD, [facility] CPT-4: 06321 11/05/2013 ([id number]) 84654 EST. PATIENT, LEVEL III Diagnosis: ACUTE BRONCHITIS[ICD9: 466.0] Che Olivares MD, [facility] CPT-4: 13354 07/17/2013 ([id number]) 83862 EST. PATIENT, LEVEL III Diagnosis: ACUTE URI[ICD9: 465.9] Diagnosis: COUGH[ICD9: 786.2] Diagnosis: ALLERGIC RHINITIS[ICD9: 477.9] Che Olivares MD, [facility] CPT-4: 57955 06/07/2013 ([id number]) 22179 EST. PATIENT, LEVEL III Diagnosis: ESSENTIAL HYPERTENSION[SNOMED: 47706591] Diagnosis: DEPRESSIVE DISORDER NEC[ICD9: 311] Verona Olivares MD, [facility] CPT-4: 21764 04/30/2013 ([id number]) 94288 EST. PATIENT, LEVEL III Diagnosis: ESSENTIAL HYPERTENSION[SNOMED: 49647970] Diagnosis: DEPRESSIVE DISORDER NEC[ICD9: 311] Verona Olivares MD, [facility] CPT-4: 12225 01/29/2013 ([id number]) 93555 EST. PATIENT, LEVEL IV Diagnosis: ESSENTIAL HYPERTENSION[SNOMED: 73326866] Diagnosis: DEPRESSIVE DISORDER NEC[ICD9: 311] Diagnosis: OBESITY[ICD9: 278.00] Verona Olivares MD, [facility] CPT-4: 59508 10/30/2012 ([id number]) 27673 EST. PATIENT, LEVEL III Diagnosis: ESSENTIAL HYPERTENSION[SNOMED: 30850392] Diagnosis: HYPERLIPIDEMIA[ICD9: 272.4] Diagnosis: DEPRESSIVE DISORDER NEC[ICD9: 311] Verona Olivares MD, [facility] CPT-4: 36408 07/12/2012 ([id number]) 18950 EST. PATIENT, LEVEL IV Diagnosis: ESSENTIAL HYPERTENSION[SNOMED: 64439039] Diagnosis: DEPRESSIVE DISORDER NEC[ICD9: 311] Diagnosis: Palpitations[ICD9: 785.1] Diagnosis: Acute maxillary sinusitis[ICD9: 461.0] Verona Olivares MD, [facility] CPT-4: 87825 06/07/2012 60413 EST. PATIENT, LEVEL IV Diagnosis: ESSENTIAL HYPERTENSION[SNOMED: 13975719] Diagnosis: COUGH[ICD9: 786.2] Diagnosis: Upper respiratory infection[ICD9: 465.9] Verona Olivares MD [facility] CPT-4: 75720 12/01/2011 ([id number]) 89948 EST. PATIENT, LEVEL III Diagnosis: ESSENTIAL HYPERTENSION[SNOMED: 72788627] ABDIAS Monroe MD CPT-4: 01911 11/18/2011 ([id number]) 11994 EST. PATIENT, LEVEL III Diagnosis: ESSENTIAL HYPERTENSION[SNOMED: 62628672] ABDIAS Monroe MD CPT-4: 93781 11/09/2011 ([id number]) OFFICE VISIT, NEW - LEVEL 4 Diagnosis: Restless leg syndrome[ICD9: 333.94] Diagnosis: INSOMNIA IN OTHER DIS[ICD9: 327.01] Diagnosis: Elevated blood pressure (not hypertension)[ICD9: 796.2] Verona Olivares MD, [facility] CPT-4: 23279 10/27/2011 Plan of Care Planned Activity Notes Codes Status Date Visit Plan: Hypertension - uncontrolled - the patient's medications have been modified as documented in the visit note. The patient has been counseled to cut back on salt in diet for a no added salt diet, low fat diet, start an exercise program with low weight bearing exercises and higher aerobic activity for heart health. The patient is to check blood pressure readings as an outpatient and either fax, call, or email the readings to the office next week for practitioner to review. The pt is to call for acute concerns. Chronic Depression and anxiety - the pt has symptoms of chronic anxiety and depression that have been fairly well controlled since the last office visit. The pt has expected periods of exacerbation with abatement of the symptoms with change in situational exposure. No change in current medications. 03/01/2019 Patient Education: Patient Medication Summary Completed 03/01/2019 Patient Education: Depression Completed 03/01/2019 Visit Plan: Sinusitis - Pt has acute infection - pain in face, maxillary region, Pt informed to use decongestant, RX given to patient, sinus rinses also recommended. Call if symptoms do not show improvement. Allergies - chronic - recommended pt to use allergy medication as prescribed. Pt has been counseled as to the appropriate use of the medication. Pt to call if allergy symptoms are not controlled with the medication. If using nasal spray , instructions as follows: Nasal spray- use twice daily, one spray per nostril twice daily, after 30 minutes, rinse out nose with saline spray.. Use opposite hand per nostril to spray in the nasal steroid allergy spray. 02/05/2019 Appointment: Solange Snyder WPtel: [facility] [place] (30 min) Complex 02/05/2019 Patient Education: Patient Medication Summary Completed 02/05/2019 Visit Plan: URI-cough - Pt advised to increase fluids, vitamin C. Discussed natural and expected course of this diagnosis and need to alert me if symptoms do not follow expected course, or if any worse. RX sent to patient's pharmacy. 11/24/2018 Visit Plan: URI-cough - Pt advised to increase fluids, vitamin C. Discussed natural and expected course of this diagnosis and need to alert me if symptoms do not follow expected course, or if any worse. RX sent to patient's pharmacy. 11/24/2018 Appointment: Che Garcia WPtel: [facility]5 [phone] (15 min) Moderate 11/24/2018 Patient Education: Patient Medication Summary Completed 11/24/2018 Visit Plan: Hypertension - well controlled - continue with current medications, continue with no added salt diet. Pt has been encouraged to exercise daily. The pt has been advised to call the office if there are any acute concerns about change in blood pressure readings at home. Insomnia - Pt has been advised to increase the light in the house during the day, and start dimming the lights during the evening hours. Pt has been advised to cut out caffeine after 5pm. Daytime napping worsens night time insomnia. RX for doxepin for PRN use. Chronic Depression and anxiety - the pt has symptoms of chronic anxiety and depression that have been fairly well controlled since the last office visit. The pt has expected periods of exacerbation with abatement of the symptoms with change in situational exposure. No change in current medications. 10/31/2018 Appointment: Verona Olivares WPtel: [phone] [facility] (15 min) Moderate 10/31/2018 Patient Education: Patient Medication Summary Completed 10/31/2018 Patient Education: Depression Completed 10/31/2018 Visit Plan: URI - Pt advised to increase fluids, vitamin C. Discussed natural and expected course of this diagnosis and need to alert me if symptoms do not follow expected course, or if any worse. RX sent to patient' s pharmacy. Allergies - chronic - recommended pt to use allergy medication as prescribed. Pt has been counseled as to the appropriate use of the medication. Pt to call if allergy symptoms are not controlled with the medication. If using nasal spray, instructions as follows: Nasal spray- use twice daily, one spray per nostril twice daily, after 30 minutes, rinse out nose with saline spray.. Use opposite hand per nostril to spray in the nasal steroid allergy spray. 09/26/2018 Appointment: Che Garcia WPtel: [facility]5 [phone] Portal Appointment Requests 09/26/2018 Appointment: Solange Snyder WPtel: [facility] [place] (15 min) Moderate 09/26/2018 Patient Education: Patient Medication Summary Completed 09/26/2018 Visit Plan: Hypertension - well controlled - continue with current medications, continue with no added salt diet. Pt has been encouraged to exercise daily. The pt has been advised to call the office if there are any acute concerns about change in blood pressure readings at home. Insomnia - Pt has been advised to increase the light in the house during the day, and start dimming the lights during the evening hours. Pt has been advised to cut out caffeine after 5pm. Daytime napping worsens night time insomnia. Pt to start on melatonin extended release at Depression - uncontrolled - Pt has been counseled about the diagnosis of depression, the potential causes, and risks associated with the diagnosis. The pt denies suicidal ideation, or plans. The patient has been counseled about treatment options, and understands the risks associated with treatment of depression, as well as the risks associated with NOT treating the depression. I believe the pt will benefit from medical intervention and an antidepressant has been appropriately prescribed for this patient. Increase lexapro to 20mg nightly 06/27/2018 Appointment: Verona Olivares WPtel: [phone] [facility] (15 min) Moderate 06/27/2018 Patient Education: Patient Medication Summary Completed 06/27/2018 Patient Education: Depression Completed 06/27/2018 Appointment: Verona Olivares WPtel: [facility] (15 min) Moderate 06/07/2018 Visit Plan: Hypertension - well controlled - continue with current medications, continue with no added salt diet. Pt has been encouraged to exercise daily. The pt has been advised to call the office if there are any acute concerns about change in blood pressure readings at home. Depression - uncontrolled - Pt has been counseled about the diagnosis of depression, the potential causes, and risks associated with the diagnosis. The pt denies suicidal ideation, or plans. The patient has been counseled about treatment options, and understands the risks associated with treatment of depression, as well as the risks associated with NOT treating the depression. I believe the pt will benefit from medical intervention and an antidepressant has been appropriately prescribed for this patient. Start on Lexapro 10mg daily. 05/11/2018 Appointment: Verona Olivares WPtel: [phone] [facility] (15 min) Moderate 05/11/2018 Patient Education: Patient Medication Summary Completed 05/11/2018 Visit Plan: Sinusitis - Pt has acute infection - pain in face, maxillary region, Pt informed to use decongestant, RX given to patient, sinus rinses also recommended. Call if symptoms do not show improvement. Allergies - chronic - recommended pt to use allergy medication as prescribed. Pt has been counseled as to the appropriate use of the medication. Pt to call if allergy symptoms are not controlled with the medication. If using nasal spray , instructions as follows: Nasal spray- use twice daily, one spray per nostril twice daily, after 30 minutes, rinse out nose with saline spray.. Use opposite hand per nostril to spray in the nasal steroid allergy spray. Phantom smells- treat sinus infection-call if symptoms do not resolve 03/08/2017 Appointment: Che Garcia WPtel: [address] [place], [place] [phone] (15 min) Moderate 03/08/2017 Patient Education: Patient Medication Summary Completed 03/08/2017 Patient Education: Obesity Completed 03/08/2017 Visit Plan: Itching-excoriation of right upper arm- bacterial culture of excoriated areas today in the office-RX for triamcinolone cream provided and instructed on use-if culture positive, will add mupirocin ointment. Patient verbalized understanding of plan. 09/06/2016 Visit Plan: Itching-excoriation of right upper arm- bacterial culture of excoriated areas today in the office-RX for triamcinolone cream provided and instructed on use-if culture positive, will add mupirocin ointment. Patient verbalized understanding of plan. 09/06/2016 Appointment: Che Garcia WPtel: [address] [place], [place] [phone] (15 min) Moderate 09/06/2016 Patient Education: Patient Medication Summary Completed 09/06/2016 Appointment: Injection 07/30/2016 Patient Education: Patient Medication Summary Completed 07/30/2016 Visit Plan: Ebqcm-ecfdx-rykk aches-patient sent for stat labs and influenza swab-will treat as indicated-instructed patient we will call her with the results of her testings-tylenol/motrin as needed for fever, increase po fluids. Patient verbalized understanding of plan. 07/08/2016 Appointment: Che Garcia WPtel: [facility]9 [phone] (15 min) Moderate 07/08/2016 Patient Education: Patient Medication Summary Completed 07/08/2016 Patient Education: Obesity Completed 07/08/2016 Visit Plan: Rash - RX given, pt is to notify clinic if rash does not improve, if it worsens, or with any concerns. 01/14/2016 Appointment: (15 min) Moderate 01/14/2016 Patient Education: Patient Medication Summary Completed 01/14/2016 Patient Education: Obesity Completed 01/14/2016 Visit Plan: Biceps tendinitis - pt to do exercises as directed, ant-inflammatories directed to be taken per RX instructions and pt to call if symptoms are not improved. 11/17/2015 Appointment: (15 min) Moderate 11/17/2015 Patient Education: Patient Medication Summary Completed 11/17/2015 Visit Plan: Esophageal Reflux - the patient has been counseled against excessive intake of caffeine, spicy foods, peppermint, and cinnamon - all of which can exacerbate esophageal reflux. The patient is to take medications as prescribed and call the office if the symptoms are not improving. URI - Pt advised to increase fluids, vitamin C. Discussed natural and expected course of this diagnosis and need to alert me if symptoms do not follow expected course, or if any worse. RX sent to patient's pharmacy. 08/29/2015 Patient Education: Patient Medication Summary Completed 08/29/2015 Appointment: Injection 07/23/2015 Appointment: Nurse Visit 07/23/2015 Patient Education: Patient Medication Summary Completed 07/23/2015 Patient Education: Patient Medication Summary Completed 05/14/2015 Visit Plan: Left knee pain-unable to schedule MRI due to stainless steel eardrum-discussed with Dr Olivares-recommend CT arthrogram to evaluate left knee pain URI - Pt advised to increase fluids, vitamin C. Discussed natural and expected course of this diagnosis and need to alert me if symptoms do not follow expected course, or if any worse. Call if symptoms do not completely resolve. 01/27/2015 Appointment: Che Garcia WPtel: [facility]5 [facility] [phone] [facility] 01/27/2015 Patient Education: Patient Medication Summary Completed 01/27/2015 Visit Plan: Biceps tendonitis - pt to do exercises as directed, antiinflammatories directed to be taken per RX instructions and pt to call if symptoms are not improved. Pt to use voltaren gel 2 grams to left wrist and right shoulder two times daily - pt to monitor symptoms and wear wrist brace - on left wrist x 2 weeks, call if not improving. Elevated blood pressure - no treatment at this time - pt has reports of improved blood pressures. 08/05/2014 Appointment: Verona Olivares WPtel: [facility] Follow [facility] 08/05/2014 Patient Education: Patient Medication Summary Completed 08/05/2014 Visit Plan: Sinusitis - Pt has acute infection - pain in face, maxillary region, Pt informed to use decongestant, RX given to patient, sinus rinses also recommended. Call if symptoms do not show improvement. 05/02/2014 Appointment: Sick 05/02/2014 Patient Education: Patient Medication Summary Completed 05/02/2014 Visit Plan: Insomnia - Pt has been advised to increase the light in the house during the day, and start dimming the lights during the evening hours. Pt has been advised to cut out caffiene after 5pm. Daytime napping worsens night time insomnia. Pt states that melatonin did not help, alprazolam did not help- therefore recommended L-tryptophan for sleep. 02/04/2014 Appointment: Verona Olivares WPtel: [facility] Follow [facility] 02/04/2014 Patient Education: Patient Medication Summary Completed 02/04/2014 Visit Plan: Hypertension - well controlled - continue with current medications, continue with no added salt diet. Pt has been encouraged to exercise daily. The pt has been advised to call the office if there are any acute concerns about change in blood pressure readings at home. Depression - symptoms improved - plan to taper down and off of vibryd. Pt to call if her depression symptoms worsen once pt is tapered off of the antidepressant. 11/05/2013 Appointment: Verona Olivares WPtel: [facility] [place] Follow up 11/05/2013 Patient Education: Patient Medication Summary Completed 11/05/2013 Patient Education: Hypertension Completed 11/05/2013 Appointment: Verona [facility]ares [facility]Ptel: [phone] [facility] [place] Follow up 10/18/2013 Appointment: Verona Olivares WPtel: [address] [place], [place] [id number] [place] Follow up 08/07/2013 Visit Plan: Bronchitis - acute case of bronchitis identified. Pt has been given antibiotics, breathing treatments as appropriate, and pt has been instructed to call if symptoms are not improved, or if symptoms acutely worsen. RX sent to patient's pharmacy. 07/17/2013 Appointment: Che Garcia WPtel: [facility]5 [facility] [place] [address] Sick 07/17/2013 Patient Education: Patient Medication Summary Completed 07/17/2013 Visit Plan: URI - Pt advised to increase fluids, vitamin C. Discussed natural and expected course of this diagnosis and need to alert me if symtpoms do not follow expected course, or if any worse. RX sent to patient' s pharmacy. Allergies - chronic - recommended pt to use allergy medication as prescribed. Pt has been counseled as the the appropriate use of the medication. Pt to call if allergy symptoms are not controlled with the medication. If using nasal spray, instructions as follows: Nasal spray- use twice daily, one spray per nostril twice daily, after 30 minutes, rinse out nose with saline spray.. Use opposite hand per nostril to spray in the nasal steroid allergy spray. 06/07/2013 Appointment: Che Garcia WPtel: [address] [place], [place] [phone] [place] [address] Sick 06/07/2013 Patient Education: Patient Medication Summary Completed 06/07/2013 Visit Plan: Hypertension - uncontrolled - the patient's medications have been modified as documented in the visit note. The patient has been counseled to cut back on salt in diet for a no added salt diet, low fat diet, start an exercise program with low weight bearing exercises and higher aerobic activity for heart health. The patient is to check blood pressure readings as an outpatient and either fax, call, or email the readings to the office next week for practicioner to review. The pt is to call for acute concerns. Chronic Depression and anxiety - the pt has symptoms of chronic anxiety and depression that have been fairly well controlled since the last office visit. The pt has expected periods of exacerbation with abatement of the symptoms with change in situational exposure. No change in current medications. 04/30/2013 Appointment: Verona Olivares WPtel: [address] [place], [place] [phone] Follow up 04/30/2013 Patient Education: Patient Medication Summary Completed 04/30/2013 Patient Education: Hypertension Completed 04/30/2013 Visit Plan: Hypertension - well controlled - continue with current medications, continue with no added salt diet. Pt has been encouraged to exercise daily. The pt has been advised to call the office if there are any acute concerns about change in blood pressure readings at home. Chronic Depression and anxiety - the pt has symptoms of chronic anxiety and depression that have been fairly well controlled since the last office visit. The pt has expected periods of exacerbation with abatement of the symptoms with change in situational exposure. No change in current medications. 01/29/2013 Appointment: Verona [facility]ares [facility]Ptel[phone] [facility] Follow [facility] 01/29/2013 Patient Education: Patient Medication Summary Completed 01/29/2013 Patient Education: Hypertension Completed 01/29/2013 Visit Plan: Hypertension - well controlled - continue with current medications, continue with no added salt diet. Pt has been encouraged to exercise daily. The pt has been advised to call the office if there are any acute concerns about change in blood pressure readings at home. Chronic Depression and anxiety - the pt has symptoms of chronic anxiety and depression that have been fairly well controlled since the last office visit. The pt has expected periods of exacerbation with abatement of the symptoms with change in situational exposure. No change in current medications. Obsity - discussed need for dietary restrictions, and exercise. Pt vocalized understanding and we discussed different exercise options. 10/30/2012 Appointment: Verona Olivares [facility]Ptel[phone] [facility] Follow [facility] 10/30/2012 Patient Education: Patient Medication Summary Completed 10/30/2012 Patient Education: Hypertension Completed 10/30/2012 Visit Plan: Hyperlipidemia - pt has been counseled about appropriate diet, exercise, and need for low fat food choices. I have discussed the need for the patient to take medications as prescribed. If the patient has negative side effects from the medication, they are to CALL the office and not abruptly discontinue the medication without discussion with a practicioner in the office. We will check labs in 3-6 months for follow up on the patient's chronic medical problem and to assure normal liver response to medications. Fish oil start twice daily. Depression - improved - pt is to continue with samples of vibryd and to call for refills. Hyeprtension - contolled - no change in current medications. 07/12/2012 Appointment: Verona Olivares [facility]Ptel[phone] [facility] [place] Follow up 07/12/2012 Patient Education: Patient Medication Summary Completed 07/12/2012 Patient Education: High Blood Pressure: Essential Hypertension Completed 2011 Visit Plan: Hypertension - uncontrolled - the patient's medications have been modified as documented in the visit note. The patient has been counseled to cut back on salt in diet for a no added salt diet, low fat diet, start an exercise program with low weight bearing exercises and higher aerobic activity for heart health. The patient is to check blood pressure readings as an outpatient and either fax, call, or email the readings to the office next week for practicioner to review. The pt is to call for acute concerns. Sinusitis - Pt has acute infection - pain in face, maxillary region, Pt informed to use decongestant, RX given to patient, sinus rinses also recommended. Call if symptoms do not show improvement. Allergies - chronic - recommended pt to use allergy medication as prescribed. Pt has been counseled as the the appropriate use of the medication. Pt to call if allergy symptoms are not controlled with the medication. Anxiety - the patient has uncontrolled anxiety and will benefit from an SSRI on a daily basis to attempt control of the symptoms of anxiety (tachycardia, overwhelming sensations, stress, insomnia , etc). I also believe that the patient will benefit from very low dose of prn benzodiazepine. Pt is aware of the risks and benefits of treament with the above medications. 06/07/2012 Appointment: Verona Olivares [facility]Ptel[phone] [facility] [place] Other 06/07/2012 Patient Education: Patient Medication Summary Completed 06/07/2012 Patient Education: High Blood Pressure: Essential Hypertension Completed 2011 Appointment: Verona [facility]ares [facility]Ptel[phone] [facility] [place] Other 05/29/2012 Visit Plan: Hypertension - well controlled - continue with current medications, continue with no added salt diet. Pt has been encouraged to exercise daily. The pt has been advised to call the office if there are any acute concerns about change in blood pressure readings at home. URI - Pt advised to increase fluids, vitamin C. Discussed natural and expected course of this diagnosis and need to alert me if symtpoms do not follow expected course, or if any worse. RX sent to patient's pharmacy. rx for zpack to be filled if pt' s symptoms worsen or do not improve in the next 3-5 days. Cough - uncontrolled - RX for phenergan with codeine sent with pt to be used for cough 12/01/2011 Appointment: Verona Olivares WPtel: [phone] [place] [phone] Follow up 12/01/2011 Patient Education: Patient Medication Summary Completed 12/01/2011 Patient Education: High Blood Pressure: Essential Hypertension Completed 2011 Visit Plan: Hypertension - well controlled - continue with current medications, continue with no added salt diet. Pt has been encouraged to exercise daily. The pt has been advised to call the office if there are any acute concerns about change in blood pressure readings at home. Pt's home machine is off on systolic by about 10 points to high and 10 points to high on diastolic. Her home blood pressures were reviewed and were not consistenly above the 150/80 level, therefore, no medication change today. 11/18/2011 Appointment: Verona Olivares WPtel: [phone] [id number] Other 11/18/2011 Patient Education: Patient Medication Summary Completed 11/18/2011 Patient Education: High Blood Pressure: Essential Hypertension Completed 2011 Visit Plan: Hypertension - uncontrolled - the patient has been started on blood pressure medication. The patient has been counseled to cut back on salt in diet for a no added salt diet, low fat diet, start an exercise program with low weight bearing exercises and higher aerobic activity for heart health. The patient is to check blood pressure readings as an outpatient and either fax, call, or email the readings to the office next week for practicioner to review. The pt is to call for acute concerns. Pt started on lisinopril 10mg daily. Wound Instructions - Pt was instruced to keep the wound clean, wash with antibacterial soap, use triple antibiotic ointment, call if redness, pustular drainage, or any other acute conerns. 11/09/2011 [facility] [place] [id number] [facility] 11/09/2011 Patient Education: Patient Medication Summary Completed 11/09/2011 Patient Education: High Blood Pressure: Essential Hypertension Completed 2011 Visit Plan: Restless leg syndrome- start on mirapex 0.5mg po qhs. Pt is to call if the symptoms do not improve. Insomnia - discussed diet and other factors that may be contributing to insomnia - cut out caffiene, no TV in bed, etc. Elevated Blood Pressure - without diagnosis of hypertension - pt has been instructed to check blood pressure as an outpatient, record blood pressure and heart rate and report to the clinic in two weeks on the findings. Pt advised to cut back on added salt in the diet. 10/27/2011 Appointment: [phone] [id number] New [facility] 10/27/2011 Patient Education: Patient Medication Summary Completed 10/27/2011 Patient Education: Restless Legs Syndrome Completed 10/27/2011 Patient Education: Insomnia Completed 10/27/2011 Instructions Comment . Hypertension - well controlled - continue with current medications, continue with no added salt diet. Pt has been encouraged to exercise daily. The pt has been advised to call the office if there are any acute concerns about change in blood pressure readings at home. Insomnia - Pt has been advised to increase the light in the house during the day , and start dimming the lights during the evening hours. Pt has been advised to cut out caffeine after 5pm. Daytime napping worsens night time insomnia. RX for doxepin for PRN use. Chronic Depression and anxiety - the pt has symptoms of chronic anxiety and depression that have been fairly well controlled since the last office visit. The pt has expected periods of exacerbation with abatement of the symptoms with change in situational exposure. No change in current medications. . Mbeee-rwwut-vcdi aches-patient sent for stat labs and influenza swab-will treat as indicated-instructed patient we will call her with the results of her testings-tylenol/motrin as needed for fever, increase po fluids. Patient verbalized understanding of plan. . Sinusitis - Pt has acute infection - pain in face, maxillary region, Pt informed to use decongestant, RX given to patient, sinus rinses also recommended. Call if symptoms do not show improvement. Allergies - chronic - recommended pt to use allergy medication as prescribed. Pt has been counseled as to the appropriate use of the medication. Pt to call if allergy symptoms are not controlled with the medication. If using nasal spray, instructions as follows: Nasal spray- use twice daily, one spray per nostril twice daily, after 30 minutes, rinse out nose with saline spray.. Use opposite hand per nostril to spray in the nasal steroid allergy spray. . URI-cough - Pt advised to increase fluids, vitamin C. Discussed natural and expected course of this diagnosis and need to alert me if symptoms do not follow expected course, or if any worse. RX sent to patient's pharmacy. . URI-cough - Pt advised to increase fluids, vitamin C. Discussed natural and expected course of this diagnosis and need to alert me if symptoms do not follow expected course, or if any worse. RX sent to patient's pharmacy. Topical steroid in addition to benadryl cream x 10 days. Culture area on right upper arm. RTC if itching worsens or does not improve in the next week. . Itching-excoriation of right upper arm-bacterial culture of excoriated areas today in the office-RX for triamcinolone cream provided and instructed on use- if culture positive, will add mupirocin ointment. Patient verbalized understanding of plan. extended release melatonin you can take up to 10mg of this medication increase the lexapro to 20mg at night. . Hypertension - well controlled - continue with current medications, continue with no added salt diet. Pt has been encouraged to exercise daily. The pt has been advised to call the office if there are any acute concerns about change in blood pressure readings at home. Insomnia - Pt has been advised to increase the light in the house during the day , and start dimming the lights during the evening hours. Pt has been advised to cut out caffeine after 5pm. Daytime napping worsens night time insomnia. Pt to start on melatonin extended release at hs Depression - uncontrolled - Pt has been counseled about the diagnosis of depression, the potential causes, and risks associated with the diagnosis. The pt denies suicidal ideation, or plans. The patient has been counseled about treatment options, and understands the risks associated with treatment of depression, as well as the risks associated with NOT treating the depression. I believe the pt will benefit from medical intervention and an antidepressant has been appropriately prescribed for this patient. Increase lexapro to 20mg nightly . Hypertension - uncontrolled - the patient's medications have been modified as documented in the visit note. The patient has been counseled to cut back on salt in diet for a no added salt diet, low fat diet, start an exercise program with low weight bearing exercises and higher aerobic activity for heart health. The patient is to check blood pressure readings as an outpatient and either fax , call, or email the readings to the office next week for practicioner to review. The pt is to call for acute concerns. Sinusitis - Pt has acute infection - pain in face, maxillary region, Pt informed to use decongestant, RX given to patient, sinus rinses also recommended. Call if symptoms do not show improvement. Allergies - chronic - recommended pt to use allergy medication as prescribed. Pt has been counseled as the the appropriate use of the medication. Pt to call if allergy symptoms are not controlled with the medication. Anxiety - the patient has uncontrolled anxiety and will benefit from an SSRI on a daily basis to attempt control of the symptoms of anxiety (tachycardia, overwhelming sensations, stress, insomnia, etc). I also believe that the patient will benefit from very low dose of prn benzodiazepine. Pt is aware of the risks and benefits of treament with the above medications. Take nexium daily. . Esophageal Reflux - the patient has been counseled against excessive intake of caffeine, spicy foods, peppermint, and cinnamon - all of which can exacerbate esophageal reflux. The patient is to take medications as prescribed and call the office if the symptoms are not improving. URI - Pt advised to increase fluids, vitamin C. Discussed natural and expected course of this diagnosis and need to alert me if symptoms do not follow expected course, or if any worse. RX sent to patient's pharmacy. . Hypertension - uncontrolled - the patient's medications have been modified as documented in the visit note. The patient has been counseled to cut back on salt in diet for a no added salt diet, low fat diet, start an exercise program with low weight bearing exercises and higher aerobic activity for heart health. The patient is to check blood pressure readings as an outpatient and either fax , call, or email the readings to the office next week for practitioner to review. The pt is to call for acute concerns. Chronic Depression and anxiety - the pt has symptoms of chronic anxiety and depression that have been fairly well controlled since the last office visit. The pt has expected periods of exacerbation with abatement of the symptoms with change in situational exposure. No change in current medications. . Bronchitis - acute case of bronchitis identified. Pt has been given antibiotics, breathing treatments as appropriate, and pt has been instructed to call if symptoms are not improved, or if symptoms acutely worsen. RX sent to patient's pharmacy. Topical steroid in addition to benadryl cream x 10 days. Culture area on right upper arm. RTC if itching worsens or does not improve in the next week. . Itching-excoriation of right upper arm-bacterial culture of excoriated areas today in the office-RX for triamcinolone cream provided and instructed on use- if culture positive, will add mupirocin ointment. Patient verbalized understanding of plan. . Hypertension - well controlled - continue with current medications, continue with no added salt diet. Pt has been encouraged to exercise daily. The pt has been advised to call the office if there are any acute concerns about change in blood pressure readings at home. Pt's home machine is off on systolic by about 10 points to high and 10 points to high on diastolic. Her home blood pressures were reviewed and were not consistenly above the 150/ 80 level, therefore, no medication change today. . Hypertension - well controlled - continue with current medications, continue with no added salt diet. Pt has been encouraged to exercise daily. The pt has been advised to call the office if there are any acute concerns about change in blood pressure readings at home. Chronic Depression and anxiety - the pt has symptoms of chronic anxiety and depression that have been fairly well controlled since the last office visit. The pt has expected periods of exacerbation with abatement of the symptoms with change in situational exposure. No change in current medications. . URI - Pt advised to increase fluids, vitamin C. Discussed natural and expected course of this diagnosis and need to alert me if symtpoms do not follow expected course, or if any worse. RX sent to patient's pharmacy. Allergies - chronic - recommended pt to use allergy medication as prescribed. Pt has been counseled as the the appropriate use of the medication. Pt to call if allergy symptoms are not controlled with the medication. If using nasal spray, instructions as follows: Nasal spray- use twice daily, one spray per nostril twice daily, after 30 minutes, rinse out nose with saline spray.. Use opposite hand per nostril to spray in the nasal steroid allergy spray. . URI - Pt advised to increase fluids, vitamin C. Discussed natural and expected course of this diagnosis and need to alert me if symptoms do not follow expected course, or if any worse. RX sent to patient's pharmacy. Allergies - chronic - recommended pt to use allergy medication as prescribed. Pt has been counseled as to the appropriate use of the medication. Pt to call if allergy symptoms are not controlled with the medication. If using nasal spray, instructions as follows: Nasal spray- use twice daily, one spray per nostril twice daily, after 30 minutes, rinse out nose with saline spray.. Use opposite hand per nostril to spray in the nasal steroid allergy spray. . Hypertension - uncontrolled - the patient has been started on blood pressure medication. The patient has been counseled to cut back on salt in diet for a no added salt diet, low fat diet, start an exercise program with low weight bearing exercises and higher aerobic activity for heart health. The patient is to check blood pressure readings as an outpatient and either fax , call, or email the readings to the office next week for practicioner to review. The pt is to call for acute concerns. Pt started on lisinopril 10mg daily. Wound Instructions - Pt was instruced to keep the wound clean, wash with antibacterial soap, use triple antibiotic ointment, call if redness, pustular drainage, or any other acute conerns. Prednisone 40mg a day, you can split the dose to 20mg in the morning and at noon. Steroid shot today, call me if it gets worse or does not seem to be improving. . Rash - RX given, pt is to notify clinic if rash does not improve, if it worsens, or with any concerns. . Hypertension - well controlled - continue with current medications, continue with no added salt diet. Pt has been encouraged to exercise daily. The pt has been advised to call the office if there are any acute concerns about change in blood pressure readings at home. Depression -symptoms improved - plan to taper down and off of vibryd. Pt to call if her depression symptoms worsen once pt is tapered off of the antidepressant. . Hypertension - well controlled - continue with current medications, continue with no added salt diet. Pt has been encouraged to exercise daily. The pt has been advised to call the office if there are any acute concerns about change in blood pressure readings at home. Chronic Depression and anxiety - the pt has symptoms of chronic anxiety and depression that have been fairly well controlled since the last office visit. The pt has expected periods of exacerbation with abatement of the symptoms with change in situational exposure. No change in current medications. Obsity - discussed need for dietary restrictions, and exercise. Pt vocalized understanding and we discussed different exercise options. . Hypertension - well controlled - continue with current medications, continue with no added salt diet. Pt has been encouraged to exercise daily. The pt has been advised to call the office if there are any acute concerns about change in blood pressure readings at home. URI - Pt advised to increase fluids, vitamin C. Discussed natural and expected course of this diagnosis and need to alert me if symtpoms do not follow expected course, or if any worse. RX sent to patient's pharmacy. rx for zpack to be filled if pt's symptoms worsen or do not improve in the next 3-5 days. Cough - uncontrolled - RX for phenergan with codeine sent with pt to be used for cough CONTINUE ANTI INFLAMMATORIES DIRECTED TAKE PAIN MEDICATION NEEDED FOR BREAKTHROUGH PAIN RECOMMEND CLARITIN OR ZYRTEC DAILY FOR COLD SYMPTOMS AND CALL IF SYMPTOMS DO NOT RESOLVE OR IF ANY WORSE . Left knee pain-unable to schedule MRI due to stainless steel eardrum- discussed with Dr Olivares-recommend CT arthrogram to evaluate left knee pain URI - Pt advised to increase fluids, vitamin C. Discussed natural and expected course of this diagnosis and need to alert me if symptoms do not follow expected course, or if any worse. Call if symptoms do not completely resolve. . Hypertension - well controlled - continue with current medications, continue with no added salt diet. Pt has been encouraged to exercise daily. The pt has been advised to call the office if there are any acute concerns about change in blood pressure readings at home. Depression - uncontrolled - Pt has been counseled about the diagnosis of depression, the potential causes, and risks associated with the diagnosis. The pt denies suicidal ideation, or plans. The patient has been counseled about treatment options, and understands the risks associated with treatment of depression, as well as the risks associated with NOT treating the depression. I believe the pt will benefit from medical intervention and an antidepressant has been appropriately prescribed for this patient. Start on Lexapro 10mg daily. . Hypertension - uncontrolled - the patient's medications have been modified as documented in the visit note. The patient has been counseled to cut back on salt in diet for a no added salt diet, low fat diet, start an exercise program with low weight bearing exercises and higher aerobic activity for heart health. The patient is to check blood pressure readings as an outpatient and either fax , call, or email the readings to the office next week for practicioner to review. The pt is to call for acute concerns. Chronic Depression and anxiety - the pt has symptoms of chronic anxiety and depression that have been fairly well controlled since the last office visit. The pt has expected periods of exacerbation with abatement of the symptoms with change in situational exposure. No change in current medications. . Hyperlipidemia - pt has been counseled about appropriate diet, exercise, and need for low fat food choices. I have discussed the need for the patient to take medications as prescribed. If the patient has negative side effects from the medication, they are to CALL the office and not abruptly discontinue the medication without discussion with a practicioner in the office. We will check labs in 3-6 months for follow up on the patient's chronic medical problem and to assure normal liver response to medications. Fish oil start twice daily. Depression - improved - pt is to continue with samples of vibryd and to call for refills. Hyeprtension - contolled - no change in current medications. . Restless leg syndrome- start on mirapex 0.5mg po qhs. Pt is to call if the symptoms do not improve. Insomnia - discussed diet and other factors that may be contributing to insomnia - cut out caffiene, no TV in bed, etc. Elevated Blood Pressure - without diagnosis of hypertension - pt has been instructed to check blood pressure as an outpatient, record blood pressure and heart rate and report to the clinic in two weeks on the findings. Pt advised to cut back on added salt in the diet. tiger balm aleve 2 tabs twice daily with food x 10 days xray shoulders . Biceps tendinitis - pt to do exercises as directed, ant-inflammatories directed to be taken per RX instructions and pt to call if symptoms are not improved. FLONASE 1 SPRAY EACH NARE DAILY . Sinusitis - Pt has acute infection - pain in face, maxillary region, Pt informed to use decongestant, RX given to patient, sinus rinses also recommended. Call if symptoms do not show improvement. Allergies - chronic - recommended pt to use allergy medication as prescribed. Pt has been counseled as to the appropriate use of the medication. Pt to call if allergy symptoms are not controlled with the medication. If using nasal spray, instructions as follows: Nasal spray- use twice daily, one spray per nostril twice daily, after 30 minutes, rinse out nose with saline spray.. Use opposite hand per nostril to spray in the nasal steroid allergy spray. Phantom smells-treat sinus infection-call if symptoms do not resolve . Sinusitis - Pt has acute infection - pain in face, maxillary region, Pt informed to use decongestant, RX given to patient, sinus rinses also recommended. Call if symptoms do not show improvement. Pt to use voltaren gel 2 grams to wrist and shoulder two times daily - pt to monitor symptoms and wear wrist brace - on left wrist x 2 weeks, call if not improving. . Biceps tendonitis - pt to do exercises as directed, antiinflammatories directed to be taken per RX instructions and pt to call if symptoms are not improved. Pt to use voltaren gel 2 grams to left wrist and right shoulder two times daily - pt to monitor symptoms and wear wrist brace - on left wrist x 2 weeks, call if not improving. Elevated blood pressure - no treatment at this time - pt has reports of improved blood pressures. L-TRYPTOPHAN - MAY HELP AIDE SLEEP.. Insomnia - Pt has been advised to increase the light in the house during the day, and start dimming the lights during the evening hours. Pt has been advised to cut out caffiene after 5pm. Daytime napping worsens night time insomnia. Pt states that melatonin did not help, alprazolam did not help- therefore recommended L-tryptophan for sleep.
[2019-03-02 10:20] VITALS: BP 129/84
--- OUTSIDE RECORDS SUMMARY | 2019-03-02 10:22 | XMS REPORT | CCD ---
Author Author Verona Olivares Organization Verona Olivares MD, [facility] Address [address] [place] [address] Phone Care Team Providers Care Retail Special Event Associate Name Role Phone Verona Olivares PP Unavailable CCM Unavailable Summary Purpose Interface Exchange Insurance Providers Payer name Policy type / Coverage type Covered democrat ID Effective Begin Date Effective End Date [facility] [id number] 2016 Unknown Family history Mother Diagnosis Age At [...] Currently employed 10/27/[address]: 483102846 Never smoker 10/27/[address]: 969810472 Never drinks alcohol 10/27/2011 Has the patient ever used illegal drugs? Unknown Has never used illegal drugs 10/27/2011 Allergies, Adverse Reactions, Alerts Substance Reaction Codes Entered Date Inactivated Date Status * NO KNOWN FOOD ALLERGIES Unknown 07/12/2012 No Inactive Date Active KENZIE INHIBITORS cough Unknown 06/07/2012 No Inactive Date Active Past Medical History Illness Codes Condition Status Onset Date Resolved Date Other acute sinusitis ICD-9: 461.8 ICD-10: J01.80 Active 02/05/2019 Unknown Other allergic rhinitis ICD-9: 477.8 ICD-10: J30.89 Active 09/26/2018 Unknown Acute upper respiratory infection, unspecified ICD-9: 465.9 ICD-10: J06.9 Active 08/28/2015 Unknown Cough ICD-9: 786.2 ICD-10: R05 Active 07/07/2016 Unknown Essential (primary) hypertension ICD-9: 401.1 ICD-10: I10 Active 05/11/2018 Unknown Major depressive disorder, recurrent, moderate ICD-9: 296.32 ICD-10: F33.1 Active 05/11/2018 Unknown Other insomnia ICD-9: 327.09 ICD-10: G47.09 [...] Problems Condition Codes Effective Dates Condition Status Other acute sinusitis ICD-9: 461.8 ICD-10: J01.80 02/05/2019 Active Other allergic rhinitis ICD-9: 477.8 ICD-10: J30.89 09/26/2018 Active Acute upper respiratory infection, unspecified ICD-9: 465.9 ICD-10: J06.9 08/28/2015 Active Cough ICD-9: 786.2 ICD-10: R05 07/07/2016 Active Essential (primary) hypertension ICD-9: 401.1 ICD-10: I10 05/11/2018 Active Major depressive disorder, recurrent, moderate ICD-9: 296.32 ICD-10: F33.1 05/11/2018 Active Other insomnia ICD-9: 327.09 ICD-10: G47.09 [...] Start Date Stop Date Status Fill Instructions amoxicillin 500 mg capsule RxNorm: 475706 1 Capsule(s) PO TID 02/05/2019 02/14/2019 Active escitalopram 20 mg tablet RxNorm: 663133 1 Tablet(s) PO QPM 09/201905/25/2019 Active alprazolam 0.5 mg tablet RxNorm: 490459 Tablet(s) TAKE ONE-HALF TO ONE TABLET BY MOUTH EVERY 8 HOURS NEEDED 01/16/2019 01/30/2019 Inactive prednisone 20 mg tablet RxNorm: 194992 2 Tablet(s) PO daily 12/10/2018 Inactive Augmentin 875 mg-125 mg tablet RxNorm: 359762 1 Tablet(s) PO BID 12/11/2018 12/17/2018 Inactive Augmentin 875 mg-125 mg tablet RxNorm: 213560 1 Tablet(s) PO BID 12/11/2018 12/10/2018 Inactive prednisone 20 mg tablet RxNorm: 294690 2 Tablet(s) PO daily 12/13/2018 Inactive promethazine 6.25 mg-codeine 10 mg/5 mL syrup RxNorm: 179263 5-10 Milliliter(s) PO Q6 PRN 11/24/2018 No Stop Date Active Zithromax Z-Tomás 250 mg tablet RxNorm: 549498 1 Tablet(s) PO UD 11/24/2018 11/28/2018 Inactive Kenalog 40 mg/mL suspension for injection RxNorm: 6391801 Milliliter(s) Inj 11/24/2018 11/24/2018 Inactive lisinopril 10 mg tablet RxNorm: 761505 1 Tablet(s) PO daily 04/12/2019 Active doxepin 10 mg capsule RxNorm: 8925722 1 Capsule(s) PO QHS as needed insomnia 10/31/2018 01/28/2019 Inactive Kenalog 40 mg/mL suspension for injection RxNorm: 7514951 Milliliter(s) Inj 09/26/2018 09/26/2018 Inactive Augmentin 875 mg-125 mg tablet RxNorm: 488083 1 Tablet(s) PO BID 09/26/2018 10/05/2018 Inactive escitalopram 20 mg tablet RxNorm: 773753 1 Tablet(s) PO QPM 08/201801/22/2019 Inactive lisinopril 10 mg tablet RxNorm: 934250 1 Tablet(s) PO daily 02/201811/13/2018 Inactive escitalopram 10 mg tablet RxNorm: 591219 1 Tablet(s) PO QPM 06/26/2018 Inactive lisinopril 10 mg tablet RxNorm: 729552 1 Tablet(s) PO daily 06/20/2018 Inactive alprazolam 0.5 mg tablet RxNorm: 203337 TAKE ONE-HALF TO ONE TABLET BY MOUTH EVERY 6 HOURS NEEDED 09/20/20172018 Inactive Augmentin 875 mg-125 mg tablet RxNorm: 443102 1 Tablet(s) PO BID 03/08/2017 03/17/2017 Inactive alprazolam 0.5 mg tablet RxNorm: 750227 Tablet(s) PO Q6 as needed TAKE ONE-HALF TO ONE TABLET BY MOUTH EVERY 6 HOURS NEEDED 12/24/2016 01/22/2017 Inactive triamcinolone acetonide 0.5 % topical cream RxNorm: 9686956 1 Application TOP BID 09/06/2016 09/15/2016 Inactive Levaquin 500 mg tablet RxNorm: 660966 1 Tablet(s) PO daily 07/14/2016 Inactive please call her when ready Levaquin 500 mg tablet RxNorm: 433625 1 Tablet(s) PO daily 07/07/2016 Inactive alprazolam 0.5 mg tablet RxNorm: 257706 Tablet(s) PO Q6 as needed TAKE ONE-HALF TO ONE TABLET BY MOUTH EVERY 6 HOURS NEEDED 04/26/2016 12/23/2016 Inactive Generic For:*XANAX 0.5 MG TABLET 05/16/2013 1:18:18 PM (Appended: Controlled substance eRx refill - RxReferenceNumber: [id number]) alprazolam 0.5 mg tablet RxNorm: 994055 Tablet(s) PO Q6 as needed TAKE ONE-HALF TO ONE TABLET BY MOUTH EVERY 6 HOURS NEEDED 04/26/2016 09/19/2017 Inactive Generic For:*XANAX 0.5 MG TABLET 05/16/2013 1:18:18 PM (Appended: Controlled substance eRx refill - RxReferenceNumber: [id number]) betamethasone dipropionate 0.05 % topical cream RxNorm: 304631 1 TOP UD 1-2 x per day PRN 01/16/2016 No Stop Date Active Kenalog 40 mg/mL suspension for injection RxNorm: 9129696 Milliliter(s) Inj 01/14/2016 01/14/2016 Inactive prednisone 20 mg tablet RxNorm: 194436 2 Tablet(s) PO daily 01/18/2016 Inactive alprazolam 0.5 mg tablet RxNorm: 070717 Tablet(s) PO Q6 as needed TAKE ONE-HALF TO ONE TABLET BY MOUTH EVERY 6 HOURS NEEDED 09/26/2015 04/25/2016 Inactive Generic For:*XANAX 0.5 MG TABLET 05/16/2013 1:18:18 PM (Appended: Controlled substance eRx refill - RxReferenceNumber: [id number]) azithromycin 250 mg tablet RxNorm: 170415 1 Tablet(s) PO UD 2 pills day one and 1 pill day 2-5 08/29/2015 09/02/2015 Inactive Keflex 500 mg capsule RxNorm: 242742 1 Capsule(s) PO TID 201402/09/2015 Inactive take a probiotic while on the abt Keflex 500 mg capsule RxNorm: 142308 1 Capsule(s) PO TID 201402/02/2015 Inactive take a probiotic while on the abt hydrocodone 5 mg-acetaminophen 325 mg tablet RxNorm: 318344 1 Tablet(s) PO Q6 PRN 01/27/2015 08/16/2015 Inactive Kenalog 40 mg/mL suspension for injection RxNorm: 5137326 2 Milliliter(s) Inj 05/02/2014 05/02/2014 Inactive Zithromax Z-Tomás 250 mg tablet RxNorm: 727492 1 Tablet(s) PO QPM 05/02/2014 05/06/2014 Inactive Rocephin 500 mg solution for injection RxNorm: 522716 1 Milliliter(s) Inj 05/02/2014 05/02/2014 Inactive metoprolol tartrate 25 mg tablet RxNorm: 930286 1/2 Tablet(s) PO BID TAKE ONE- HALF TABLET BY MOUTH TWICE DAILY 11/05/2013 02/03/2014 Inactive vilazodone 40 mg tablet RxNorm: 6205849 1 Tablet(s) PO daily 02/03/2014 Inactive Zithromax Z-Tomás 250 mg tablet RxNorm: 454459 Tablet(s) PO 07/1711/04/2013 Inactive Rocephin 500 mg Solution for Injection RxNorm: 0278104 Inj 10/201207/17/2013 Inactive Kenalog 40 mg/mL Susp for Injection RxNorm: 8436971 1 Milliliter(s) Inj 06/07/2013 06/07/2013 Inactive alprazolam 0.5 mg tablet RxNorm: 077022 1/2-1 Tablet(s) PO Q6 PRN 05/17/2013 No Stop Date Active alprazolam 0.5 mg tablet RxNorm: 435002 Tablet(s) PO TAKE ONE-HALF TO ONE TABLET BY MOUTH EVERY 6 HOURS NEEDED 05/17/2013 09/25/2015 Inactive Generic For:*XANAX 0.5 MG TABLET 05/16/2013 1:18:18 PM (Appended: Controlled substance eRx refill - RxReferenceNumber: [id number]) metoprolol tartrate 25 mg tablet RxNorm: 752038 Tablet(s) PO TAKE ONE-HALF TABLET BY MOUTH TWICE DAILY 02/12/20132013 Inactive metoprolol tartrate 25 mg tablet RxNorm: 140330 1/2 Tablet(s) PO BID 01/29/2013 05/28/2013 Inactive alprazolam 0.5 mg tablet RxNorm: 290490 1/2-1 Tablet(s) PO Q6 PRN 11/28/2012 05/17/2013 Inactive lisinopril 10 mg tablet RxNorm: 528355 1 Tablet(s) PO daily 01/28/2013 Inactive vilazodone 40 mg tablet RxNorm: 5408700 1 Tablet(s) PO daily 02/03/2013 Inactive metoprolol tartrate 25 mg tablet RxNorm: 264014 1/2 Tablet(s) PO BID 06/07/2012 10/04/2012 Inactive amoxicillin-potassium clavulanate 500 mg-125 mg tablet RxNorm: 566532 1 Tablet(s) PO TID 06/07/2012 06/13/2012 Inactive Ambien 5 mg tablet RxNorm: 940579 1 Tablet(s) PO HS PRN 05/0205/31/2012 Inactive lisinopril 10 mg tablet RxNorm: 628192 1 Tablet(s) PO daily 06/05/2012 Inactive pramipexole 0.5 mg Tab RxNorm: 798326 1/2 Tablet(s) PO QHS 01/29/2012 Inactive pramipexole 0.5 mg Tab RxNorm: 630667 1 Tablet(s) PO QHS 201110/31/2011 Inactive Fish Oil 1,200 mg-144 mg-216 mg Cap RxNorm: 1 Capsule(s) PO daily No Start Date Active potassium 99 mg Tab RxNorm: 1 Tablet(s) PO daily No Start Date 10/29/2012 Inactive betamethasone dipropionate 0.05 % topical cream RxNorm: 847847 1 TOP UD 1-2 x per day PRN No Start Date 01/15/2016 Inactive alprazolam 0.5 mg tablet RxNorm: 890909 1/2-1 Tablet(s) PO Q6 PRN No Start Date 11/27/2012 Inactive Ambien 5 mg tablet RxNorm: 729896 1 Tablet(s) PO HS PRN No Start Date 05/01/2012 Inactive calcium & magnesium carbonates 311 mg-232 mg Tab RxNorm: 933226 1 Tablet(s) PO BID No Start Date 10/29/2012 Inactive multivitamin Tab RxNorm: 1 Tablet(s) PO daily No Start Date 10/29/2012 Inactive vilazodone 40 mg tablet RxNorm: 2562184 1 Tablet(s) PO daily No Start Date 08/07/2012 Inactive Zithromax Z-Tomás 250 mg tablet RxNorm: 123807 Tablet(s) PO No Start Date 07/16/2013 Inactive Medication Administered Medication Codes Instructions Start Date Status Kenalog 40 mg/mL suspension for injection RxNorm: 8750582 Milliliter 11/24/2018 No longer Active Kenalog 40 mg/mL suspension for injection RxNorm: 1847580 Milliliter 09/26/2018 No longer Active Kenalog 40 mg/mL suspension for injection RxNorm: 4018953 Milliliter 01/14/2016 No longer Active Kenalog 40 mg/mL suspension for injection RxNorm: 7052775 2Milliliter 05/02/2014 No longer Active Rocephin 500 mg solution for injection RxNorm: 127446 1Milliliter 05/02/2014 No longer Active Rocephin 500 mg Solution for Injection RxNorm: 1181116 07/17/2013 No longer Active Kenalog 40 mg/mL Susp for Injection RxNorm: 4350412 1Milliliter 06/07/2013 No longer Active Immunizations Vaccine Codes Date Status Influenza CVX: 141 06/27/2018 completed Influenza CVX: 141 07/30/2016 completed Influenza CVX: 141 07/23/2015 completed Influenza CVX: 141 07/26/2013 completed Assessments Condition Codes Effective Dates Other allergic rhinitis ICD-10: J30.89 ICD-9: 477.8 02/05/2019 Other acute sinusitis ICD-10: J01.80 ICD-9: 461.8 02/05/2019 Cough ICD-10: R05 ICD-9: 786.2 11/24/2018 Acute upper respiratory infection, unspecified ICD-10: J06.9 ICD-9: 465.9 11/24/2018 Essential (primary) hypertension ICD-10: I10 ICD-9: 401.1 10/31/2018 Other insomnia ICD-10: G47.09 ICD-9: 327.09 10/31/2018 Major depressive disorder, recurrent, moderate ICD-10: F33.1 ICD-9: 296.32 10/31/2018 Acute laryngopharyngitis ICD-10: J06.0 ICD-9: 465.0 [...] NEC ICD-9: 311 2013 ESSENTIAL HYPERTENSION SNOMED: 39771376 ICD-9: 401.9 11/05/2013 ACUTE BRONCHITIS ICD-9: 466.0 07/17/2013 COUGH ICD-9: 786.2 06/07/2013 OBESITY ICD-9: 278.00 10/30/2012 HYPERLIPIDEMIA ICD-9: 272.4 07/12/2012 Palpitations ICD-9: 785.1 06/07/2012 Changing mole ICD-9: 216.9 11/09/2011 Restless leg syndrome ICD-9: 333.94 10/27 Reason For Visit Reason For Visit Effective Dates Notes sinus congestion 02/05/2019 sinus congestion 11/24/2018 hypertension [...] Item Item Code Result Date Influenza A+B Dwd426 Influ A+B Negative 07/08/2016 Cbc With Differential [...] 29.7 pg 07/08/2016 Cbc With Differential Ord2 [place]% 6.8 % 07/08/2016 Cbc With Differential Ord2 [...] 1.19 K/ul 07/08/2016 Cbc With Differential Ord2 [place] ABS# 1.1 K/ul 07/08/2016 Cbc With Differential Ord2 Eos ABS# 0.0 K/ul 07/08/2016 Cbc With Differential Ord2 Baso ABS# 0.0 K/ul 07/08/2016 Comp Metabolic Fen857 NA 134 mEq/L 07/08/2016 Comp Metabolic Njx483 K 3.9 mEq/L 07/08/2016 Comp Metabolic Uco278 CL 101 mEq/L 07/08/2016 Comp Metabolic Bxq947 CO2 27.0 mEq/L 07/08/2016 Comp Metabolic Duq191 ANION GAP 10 07/08/2016 Comp Metabolic Gpm443 GLUCOSE 120 mg/dL 07/08/2016 Comp Metabolic Adu335 Creat 0.9 mg/dL 07/08/2016 Comp Metabolic Qde474 eGFR 71 ml/min/1.73m2 07/08/2016 Comp Metabolic Hbw021 BUN 16 mg/dL 07/08/2016 Comp Metabolic Syr137 B/C Ratio 18.4 Ratio 07/08/2016 Comp Metabolic Riq214 CALCIUM 10.0 mg/dL 07/08/2016 Comp Metabolic Tbr399 ALK PHOS 57 U/L 07/08/2016 Comp Metabolic Del315 AST(SGOT) 21 U/L 07/08/2016 Comp Metabolic Bpj784 ALT(SGPT) 20 U/L 07/08/2016 Comp Metabolic Ymv304 BILI T 1.1 mg/dL 07/08/2016 Comp Metabolic Fua952 ALBUMIN 3.9 g/dL 07/08/2016 Comp Metabolic Hng016 TPRO 6.2 g/dL 07/08/2016 Comp Metabolic Pox133 GLOB 2.4 g/dL 07/08/2016 Comp Metabolic Bos566 A/G Ratio 1.6 Ratio 07/08/2016 Comp Metabolic Ldu611 Osmo 271 mOsmo 07/08/2016 Comp Metabolic Lkg244 NA 130 mEq/L 08/29/2015 Comp Metabolic Jtp122 K 4.0 mEq/L 08/29/2015 Comp Metabolic Xho165 CL 99 mEq/L 08/29/2015 Comp Metabolic Xov581 CO2 21.0 mEq/L 08/29/2015 Comp Metabolic Ndi211 ANION GAP 14 08/29/2015 Comp Metabolic Zpc436 GLUCOSE 105 mg/dL 08/29/2015 Comp Metabolic Pre935 Creat 1.0 mg/dL 08/29/2015 Comp Metabolic Vhr044 eGFR 62 ml/min/1.73m2 08/29/2015 Comp Metabolic Byz959 BUN 8 mg/dL 08/29/2015 Comp Metabolic Qeh127 B/C Ratio 8.2 Ratio 08/29/2015 Comp Metabolic Eur463 CALCIUM 9.9 mg/dL 08/29/2015 Comp Metabolic Inf073 ALK PHOS 93 U/L 08/29/2015 Comp Metabolic Czq395 AST(SGOT) 16 U/L 08/29/2015 Comp Metabolic Tcg704 ALT(SGPT) 22 U/L 08/29/2015 Comp Metabolic Tgt233 BILI T 0.6 mg/dL 08/29/2015 Comp Metabolic Rqv600 ALBUMIN 4.3 g/dL 08/29/2015 Comp Metabolic Gbm921 TPRO 6.7 g/dL 08/29/2015 Comp Metabolic Jzz174 GLOB 2.4 g/dL 08/29/2015 Comp Metabolic Sgg534 A/G Ratio 1.8 Ratio 08/29/2015 Comp Metabolic Nib502 Osmo 259 mOsmo 08/29/2015 Cbc With Differential [...] of Systems System Result Effective Dates Constitutional recent illness 02/05/2019 Constitutional No chills [...] Result Effective Dates Notes Full Exam - ENT Constitutional general appearance [...] accomodation 11/05/2013 None Full Exam - General 1995 Ears/Nose/Throat otoscopic exam Overall: external auditory canals clear 11/05/2013 None Full Exam - General 1994 Ears/Nose/Throat otoscopic exam Overall: tympanic membranes clear 11/05/2013 None Full Exam - General 1995 Ears/Nose/Throat oral cavity/pharynx/larynx Overall: oral mucosa clear 11/05/2013 None Full Exam - General 1994 Ears/Nose/Throat oral cavity/pharynx/larynx Overall: oropharyngeal mucosa clear 11/05/2013 None Full Exam - General 1995 Ears/Nose/Throat oral cavity/pharynx/larynx Overall: no masses 11/05/2013 [...] murmurs 11/05/2013 None Full Exam - General 1994 Musculoskeletal head and neck Overall: head atraumatic 11/05/2013 None Full Exam - General 1994 Musculoskeletal head and neck Overall: cervical spine benign 11/05/2013 None Full Exam - General 1994 Neurologic deep tendon reflexes Overall: deep tendon reflexes intact 11/05/2013 None Full Exam - General 1994 Neurologic gait Overall: no ataxia, no unsteadiness 11/05/2013 None Full Exam - General 1994 Neurologic cranial nerves Overall: crainial nerves 2 - 12 grossly intact 11/05/2013 None Full Exam - General 1994 Psychiatric orientation/consciousness Overall: oriented to person, place and time 11/05/2013 None Full Exam - General 1994 Psychiatric mood and affect Overall: normal mood and affect 11/05/2013 None Full Exam - General 1994 Constitutional general appearance Overall: well nourished 07/17/2013 [...] 07/17/2013 None Full Exam - General 1995 Eyes conjunctiva /eyelids Overall: eyelids normal 07/17/2013 [...] accomodation 04/30/2013 None Full Exam - General 1994 Ears/Nose/Throat otoscopic exam Overall: external auditory canals clear 04/30/2013 None Full Exam - General 1994 Ears/Nose/Throat otoscopic exam Overall: tympanic membranes clear 04/30/2013 None Full Exam - General 1995 Ears/Nose/Throat oral cavity/pharynx/larynx Overall: oral mucosa clear 04/30/2013 None Full Exam - General 1995 Ears/Nose/Throat oral cavity/pharynx/larynx Overall: oropharyngeal mucosa clear 04/30/2013 None Full Exam - General 1995 Ears/Nose/Throat oral cavity/pharynx/larynx Overall: no masses 04/30/2013 None Full Exam - General 1995 Respiratory auscultation Overall: breath sounds clear bilaterally 04/30/2013 None Full Exam - General 1995 Respiratory respiratory effort/rhythm Overall: no retractions 04/30/2013 None Full Exam - General 1995 Respiratory respiratory effort/rhythm Overall: normal rate 04/30/2013 None Full Exam - General 1995 Cardiovascular extremities Overall: no clubbing 04/30/2013 None Full Exam - General 1994 Cardiovascular auscultation of heart Overall: regular rate 04/30/2013 None Full Exam - General 1995 Cardiovascular auscultation of heart Overall: normal heart [...] affect 04/30/2013 None Full Exam - General 1994 Constitutional general appearance Overall: well developed 01/29/2013 None Full Exam - General 1994 [...] masses 01/29/2013 None Full Exam - General 1995 Ears/Nose/Throat oral cavity/pharynx/larynx Overall: oral mucosa clear 01/29/2013 None Full Exam - General 1994 Ears/Nose/Throat otoscopic exam Overall: tympanic membranes clear 01/29/2013 None Full Exam - General 1994 Ears/Nose/Throat otoscopic exam Overall: external auditory canals clear 01/29/2013 None Full Exam - General 1994 Constitutional general appearance Overall: well developed 10/30/2012 None Full Exam - General 1994 Constitutional general appearance Overall: in no acute distress 10/30/2012 None Full Exam - General 1994 Constitutional general appearance Overall: well nourished 10/30/2012 None Full Exam - General 1994 Eyes pupils and irises Overall: pupils equal, round, reactive to light and accomodation 10/30/2012 None Full Exam - General 1994 Respiratory auscultation Overall: breath sounds clear bilaterally 10/30/2012 None Full Exam - General 1994 Respiratory respiratory effort/rhythm Overall: no retractions 10/30/2012 None Full Exam - General 1995 Respiratory respiratory effort/rhythm Overall: normal rate 10/30/2012 None Full Exam - General 1995 Cardiovascular extremities Overall: no clubbing 10/30/2012 None Full Exam - General 1995 Cardiovascular auscultation of heart Overall: regular rate 10/30/2012 None Full Exam - General 1995 Cardiovascular auscultation of heart Overall: normal heart sounds 10/30/2012 None Full Exam - General 1995 Cardiovascular auscultation of heart Overall: no murmurs 10/30/2012 None Full Exam - General 1995 Musculoskeletal head and neck Overall: head atraumatic 10/30/2012 None Full Exam - General 1995 Musculoskeletal head and neck Overall: cervical spine benign 10/30/2012 None Full Exam - General 1995 Neurologic [...] sounds 07/12/2012 None Full Exam - General 1995 Abdomen liver and spleen exam Overall: no hepatosplenomegaly 07/12/2012 None Full Exam - General 1995 Abdomen liver and spleen exam Overall: no stigmata of chronic liver disease 07/12/2012 None Full Exam - General 1995 Constitutional general appearance Overall: well developed 07/12/2012 None Full Exam - General 1995 Constitutional general appearance Overall: in no acute distress 07/12/2012 None Full Exam - General 1995 Constitutional general appearance Overall: well nourished 07/12/2012 None Full Exam - General 1994 Eyes pupils and irises Overall: pupils equal, round, reactive to light and accomodation 07/12/2012 None Full Exam - General 1995 [...] hepatosplenomegaly 06/07/2012 None Full Exam - General 1995 Abdomen liver and spleen exam Overall: no [...] clear 06/07/2012 None Full Exam - General 1995 Ears/Nose/Throat oral cavity/pharynx/larynx Overall: oral mucosa clear 06/07/2012 None Full Exam - General 1995 Ears/Nose/Throat oral cavity/pharynx/larynx Overall: oropharyngeal mucosa clear 06/07/2012 None Full Exam - General 1995 Ears/Nose/Throat oral cavity/pharynx/larynx Overall: no masses 06/07/2012 [...] retractions 12/01/2011 None Full Exam - General 1995 Ears/Nose/Throat otoscopic exam Overall: external auditory canals clear 12/01/2011 None Full Exam - General 1995 Ears/Nose/Throat otoscopic exam Tympanic membrane: retracted 12/01/2011 with post surgical changes Full Exam - General 1995 Ears/Nose/Throat otoscopic exam Tympanic membrane: air- fluid level 12/01/2011 None Full Exam - General 1994 Ears/Nose/Throat oral cavity/pharynx/larynx Posterior Pharynx: cobblestoned 12/01/2011 None Full Exam - General 1994 Ears/Nose/Throat oral cavity/pharynx/larynx Oral mucosa: a normal exam 12/01/2011 None Full Exam - General 1995 Ears/Nose/Throat oral cavity/pharynx/larynx Oropharynx: erythema 12/01/2011 None Full Exam - General 1994 [...] lesions 10/27/2011 None Full Exam - General 1995 Respiratory respiratory effort/rhythm Overall: normal rate 10/27/2011 [...] CPT-4: J3301 09/26/2018 THER/PROPH/DIAG INJ SC/IM CPT-4: 30442 09/26/2018 IMMUNIZATION ADMIN CPT -4: 97917 06/27/2018 FLU VAC NO PRSV 4 RAHUL 3 YRS+ Formatting Model/CDA Sections, Assigned to/Zonia Martinez CPT-4: 78190Yflkhdz 06/27/2018 IMMUNIZATION ADMIN CPT -4: 93687 07/30/2016 IIV4 FLU VACC NO PRESERV ID SNOMED CT: 92631468 CPT-4: 76625 07/30/2016 TRIAMCINOLONE ACET INJ NOS CPT-4: J3301 01/14/2016 IMMUNIZATION ADMIN CPT -4: 16249 07/23/2015 IMMUNIZATION ADMIN EACH ADD CPT-4: 12057 07/23/2015 FLU VACC 4 RAHUL 3 YRS PLUS IM Formatting Model/CDA Sections, Assigned to SNOMED CT: 63624163 CPT-4: 46589Mtwdgxq 07/23/2015 THER/PROPH/DIAG INJ SC/IM CPT-4: 21940 05/02/2014 ROCEPHIN, PER 250 MG CPT-4: J0696 05/02/2014 TRIAMCINOLONE ACET INJ NOS CPT-4: J3301 05/02/2014 ROCEPHIN, PER 250 MG CPT-4: J0696 07/17/2013 TRIAMCINOLONE ACET INJ NOS CPT-4: J3301 06/07/2013 BIOPSY SKIN LESION CPT -4: 57325 11/09/2011 Vital Signs Date Vital 02/05/2019 Blood Pressure 1: 146/88 Code : 8480-6 BMI: 34.4 Code : 57617-8 Heart Rate 1 : 65 bpm Height: 5'8" SpO2: 98% Weight: 226 lbs 11/24/2018 Blood Pressure 1: 122/70 Code : 8480-6 BMI: 32.7 Code : 18706-8 Heart Rate 1 : 85 bpm Height: 5'8" SpO2: 98% Temperature: 36.6 (C) / 97.9 (F) Weight: 215 lbs 10/31/2018 Blood Pressure 1: 126/78 Code : 8480-6 BMI: 32.7 Code : 01574-5 Heart Rate 1 : 75 bpm Height: 5'8" SpO2: 97% Weight: 215 lbs 09/26/2018 Blood Pressure 1: 130/78 Code : 8480-6 BMI: 32.4 Code : 98768-0 Heart Rate 1 : 67 bpm Height: 5'8" SpO2: 97% Temperature: 36.5 (C) / 97.7 (F) Weight: 213 lbs 06/27/2018 Blood Pressure 1: 132/78 Code : 8480-6 BMI: 33.9 Code : 75053-3 Heart Rate 1 : 66 bpm Height: 5'8" SpO2: 95% Weight: 223 lbs 05/11/2018 Blood Pressure 1: 140/90 Code : 8480-6 BMI: 33.8 Code : 75005-2 Heart Rate 1 : 74 bpm Height: 5'8" SpO2: 98% Weight: 222 lbs 03/08/2017 Blood Pressure 1: 144/86 Code : 8480-6 BMI: 31.2 Code : 78216-1 Heart Rate 1 : 70 bpm Height: 5'8" SpO2: 98% Weight: 205 lbs 09/06/2016 Blood Pressure 1: 128/86 Code : 8480-6 BMI: 28.4 Code : 98416-1 Heart Rate 1 : 86 bpm Height: 5'8" SpO2: 96% Weight: 187 lbs 07/08/2016 Blood Pressure 1: 120/60 Code : 8480-6 BMI: 28.4 Code : 51218-5 Height: 5'8" Temperature: 37.8 (C) / 100.1 (F) Weight: 187 lbs 01/14/2016 Blood Pressure 1: 152/86 Code : 8480-6 BMI: 30.4 Code : 95521-2 Heart Rate 1 : 83 bpm Height: 5'8" SpO2: 97% Weight: 200 lbs 11/17/2015 Blood Pressure 1: 142/90 Code : 8480-6 BMI: 33.9 Code : 97488-5 Heart Rate 1 : 75 bpm Height: 5'8" SpO2: 97% Weight: 223 lbs 08/29/2015 BMI: 35.6 Code: 34000-6 Heart Rate 1: 94 bpm Height: 5'8" SpO2: 98% Weight: 234 lbs 01/27/2015 Blood Pressure 1: 140/94 Code : 8480-6 Heart Rate 1: 88 bpm Height: 5'8" SpO2: 98% Weight: 08/05/2014 Blood Pressure 1: 138/82 Code : 8480-6 BMI: 33.6 Code : 78878-3 Heart Rate 1 : 76 bpm Height: 5'8" Weight: 221 lbs 05/02/2014 Blood Pressure 1: 142/82 Code : 8480-6 Heart Rate 1: 84 bpm Height: SpO2: 100% Temperature: 37.1 (C) / 98.7 (F) Weight: 02/04/2014 Blood Pressure 1: 108/78 Code : 8480-6 BMI: 36.2 Code : 51474-9 Heart Rate 1 : 60 bpm Height: 5'8" Weight: 238 lbs 11/05/2013 Blood Pressure 1: 134/74 Code : 8480-6 BMI: 35.9 Code : 15247-6 Heart Rate 1 : 68 bpm Height: 5'8" Weight: 236 lbs 07/17/2013 Blood Pressure 1: 136/88 Code : 8480-6 BMI: 35.9 Code : 73783-7 Heart Rate 1 : 72 bpm Height: 5'8" Temperature: 36.4 (C) / 97.6 (F) Weight: 236 lbs 06/07/2013 Blood Pressure 1: 134/92 Code : 8480-6 Heart Rate 1: 72 bpm Temperature: 37.0 (C) / 98.6 (F) Weight: 04/30/2013 Blood Pressure 1: 148/78 Code : 8480-6 BMI: 35.1 Code : 54742-9 Heart Rate 1 : 64 bpm Height: 5'8" Weight: 231 lbs 01/29/2013 Blood Pressure 1: 128/84 Code : 8480-6 BMI: 34.4 Code : 07535-2 Heart Rate 1 : 76 bpm Height: 5'8" Weight: 226 lbs 10/30/2012 Blood Pressure 1: 118/72 Code : 8480-6 BMI: 33.5 Code : 73180-9 Heart Rate 1 : 64 bpm Height: [...] Code : 8480-6 BMI: 29.5 Code : 21054-2 Heart Rate 1 : 72 bpm Height: [...] Code : 8480-6 BMI: 29.3 Code : 52533-9 Heart Rate 1 : 76 bpm Height: 5'8" Respiratory Rate: 16 bpm Weight: 193 lbs Functional Status No Functional Status data History of Present Illness Symptom Name Status Result Effective Date Notes Location frontal sinuses 02/05/2019 None Quality constant [...] data Encounters Encounter Performer Location Codes Date 24455 EST. PATIENT, LEVEL IV Diagnosis: Other acute sinusitis[ICD10: J01.80] Diagnosis: Other allergic rhinitis[ICD10: J30.89] [facility] CPT-4: 68818 02/05/2019 ([id number]) 45180 EST. PATIENT, LEVEL III Diagnosis: Cough[ICD10: R05] Diagnosis: Acute upper respiratory infection, unspecified[ICD10: J06.9] Che Olivares MD, [facility] CPT-4: 13702 11/24/2018 ([id number]) 09380 EST. PATIENT, LEVEL III Diagnosis: Essential (primary) hypertension[ICD10: I10] Diagnosis: Major depressive disorder, recurrent, moderate[ICD10: F33.1] Diagnosis: Other insomnia[ICD10: G47.09] Verona Olivares MD, [facility] CPT- 4: 18400 10/31/2018 91477 EST. PATIENT, LEVEL III Diagnosis: Acute laryngopharyngitis[ICD10: J06.0] Diagnosis: Other allergic rhinitis[ICD10: J30.89] Solange Olivares MD, [facility] CPT-4: 21107 09/26/2018 ([id number]) 23438 EST. PATIENT, LEVEL III Diagnosis: Essential (primary) hypertension[ICD10: I10] Diagnosis: Major depressive disorder, recurrent, moderate[ICD10: F33.1] Diagnosis: Generalized anxiety disorder[ICD10: F41.1] Diagnosis: Encounter for immunization[ICD10: Z23] Verona Olivares MD, [facility] CPT-4: 97359 06/27/2018 ([id number]) 65173 EST. PATIENT, LEVEL IV Diagnosis: Essential (primary) hypertension[ICD10: I10] Diagnosis: Major depressive disorder, recurrent, moderate[ICD10: F33.1] Diagnosis: Generalized anxiety disorder[ICD10: F41.1] Verona Olivares MD, [facility] CPT-4: 52766 05/11/2018 ([id number]) 70897 EST. PATIENT, LEVEL III Diagnosis: Acute recurrent maxillary sinusitis[ICD10: J01.01] Diagnosis: Other hallucinations[ICD10: R44.2] Diagnosis: Allergic rhinitis due to pollen[ICD10: J30.1] Che Olivares MD, [facility] CPT-4: 83368 03/08/2017 ([id number]) 40910 EST. PATIENT, LEVEL II Diagnosis: Cellulitis of right upper limb[ICD10: L03.113] Che Olivares MD, [facility] CPT-4: 41556 09/06/2016 ([id number]) 23238 EST. PATIENT, LEVEL III Diagnosis: Cough[ICD10: R05] Diagnosis: Fever, unspecified[ICD10: R50.9] Diagnosis: Pain, unspecified[ICD10: R52] Che Olivares MD [facility] CPT-4: 38250 07/08/2016 08764 EST. PATIENT, LEVEL IV Diagnosis: Rash and other nonspecific skin eruption[ICD10: R21] Solange Olivares MD, [facility] CPT-4: 41430 01/14/2016 ([id number]) 08248 EST. PATIENT, LEVEL III Diagnosis: Pain in left shoulder[ICD10: M25.512] Diagnosis: Pain in right shoulder[ICD10: M25.511] Diagnosis: Bicipital tendinitis, left shoulder[ICD10: M75.22] Che Olivares MD, [facility] CPT-4: 41648 11/17/2015 33741 EST. PATIENT, LEVEL IV Diagnosis: Epigastric pain[ICD10: R10.13] Diagnosis: Acute upper respiratory infection, unspecified[ICD10: J06.9] Solange Olivares MD , [facility] CPT-4: 98897 08/29/2015 ([id number]) 16971 EST. PATIENT, LEVEL III Diagnosis: Left knee pain[ICD9: 719.46] Diagnosis: ACUTE URI[ICD9: 465.9] Diagnosis: ALLERGIC RHINITIS[ICD9: 477.9] Che Olivares MD, [facility] CPT-4: 68676 01/27/2015 ([id number]) 70130 EST. PATIENT, LEVEL III Diagnosis: Elevated blood pressure (not hypertension)[ICD9: 796.2] Diagnosis: Biceps tendinitis[ICD9: 726.12] Diagnosis: Wrist pain, acute[ICD9: 719.43] Verona Olivares MD, [facility] CPT- 4: 29078 08/05/2014 ([id number]) 03840 EST. PATIENT, LEVEL III Diagnosis: Acute maxillary sinusitis[ICD9: 461.0] Verona Olivares MD, [facility] CPT-4: 33516 05/02/2014 ([id number]) 30337 EST. PATIENT, LEVEL III Diagnosis: INSOMNIA IN OTHER DIS[ICD9: 327.01] Verona Olivares MD, [facility] CPT-4: 40998 02/04/2014 ([id number]) 47514 EST. PATIENT, LEVEL III Diagnosis: ESSENTIAL HYPERTENSION[SNOMED: 99571616] Diagnosis: DEPRESSIVE DISORDER NEC[ICD9: 311] [facility] CPT-4: 55552 11/05/2013 ([id number]) 05945 EST. PATIENT, LEVEL III Diagnosis: ACUTE BRONCHITIS[ICD9: 466.0] Che Olivares MD, [facility] CPT-4: 68118 07/17/2013 ([id number]) 26154 EST. PATIENT, LEVEL III Diagnosis: ACUTE URI[ICD9: 465.9] Diagnosis: COUGH[ICD9: 786.2] Diagnosis: ALLERGIC RHINITIS[ICD9: 477.9] [facility] CPT-4: 38850 06/07/2013 ([id number]) 14552 EST. PATIENT, LEVEL III Diagnosis: ESSENTIAL HYPERTENSION[SNOMED: 21795953] Diagnosis: DEPRESSIVE DISORDER NEC[ICD9: 311] Verona Olivares MD, [facility] CPT-4: 54514 04/30/2013 ([id number]) 11739 EST. PATIENT, LEVEL III Diagnosis: ESSENTIAL HYPERTENSION[SNOMED: 00866789] Diagnosis: DEPRESSIVE DISORDER NEC[ICD9: 311] [facility] CPT-4: 51156 01/29/2013 ([id number]) 81307 EST. PATIENT, LEVEL IV Diagnosis: ESSENTIAL HYPERTENSION[SNOMED: 44906755] Diagnosis: DEPRESSIVE DISORDER NEC[ICD9: 311] Diagnosis: OBESITY[ICD9: 278.00] [facility] CPT-4: 52953 10/30/2012 ([id number]) 83386 EST. PATIENT, LEVEL III Diagnosis: ESSENTIAL HYPERTENSION[SNOMED: 83298663] Diagnosis: HYPERLIPIDEMIA[ICD9: 272.4] Diagnosis: DEPRESSIVE DISORDER NEC[ICD9: 311] [facility] CPT-4: 81878 07/12/2012 ([id number]) 12827 EST. PATIENT, LEVEL IV Diagnosis: ESSENTIAL HYPERTENSION[SNOMED: 97727114] Diagnosis: DEPRESSIVE DISORDER NEC[ICD9: 311] Diagnosis: Palpitations[ICD9: 785.1] Diagnosis: Acute maxillary sinusitis[ICD9: 461.0] Verona Olivares MD, [facility] CPT-4: 94108 06/07/2012 52825 EST. PATIENT, LEVEL IV Diagnosis: ESSENTIAL HYPERTENSION[SNOMED: 07800495] Diagnosis: COUGH[ICD9: 786.2] Diagnosis: Upper respiratory infection[ICD9: 465.9] Verona Olivares MD, [facility] CPT-4: 34708 12/01/2011 ([id number]) 76846 EST. PATIENT, LEVEL III Diagnosis: ESSENTIAL HYPERTENSION[SNOMED: 01880785] [facility] Monroe MD CPT-4: 54175 11/18/2011 ([id number]) 54424 EST. PATIENT, LEVEL III Diagnosis: ESSENTIAL HYPERTENSION[SNOMED: 65674793] [facility]IAS Monroe MD CPT-4: 76768 11/09/2011 ([id number]) OFFICE VISIT, NEW - LEVEL 4 Diagnosis: Restless leg syndrome[ICD9: 333.94] Diagnosis: INSOMNIA IN OTHER DIS[ICD9: 327.01] Diagnosis: Elevated blood pressure (not hypertension)[ICD9: 796.2] Verona Olivares MD, [facility] CPT-4: 35825 10/27/2011 Plan of Care Planned Activity Notes Codes Status Date Visit Plan: Sinusitis - Pt has acute [...] in the nasal steroid allergy spray. 02/05/2019 Patient Education: Patient Medication Summary Completed [...] patient's pharmacy. 11/24/2018 Appointment: Che Garcia WPtel: [phone] [phone] (15 min) Moderate 11/24/2018 Patient Education: Patient [...] current medications. 10/31/2018 Appointment: Verona Olivares WPtel: [phone] [facility] [place] (15 min) Moderate 10/31/2018 Patient Education: Patient [...] allergy spray. 09/26/2018 Appointment: Che Garcia WPtel: [phone] [phone] Portal Appointment Requests 09/26/2018 Appointment: Solange Snyder WPtel: [facility] (15 min) Moderate 09/26/2018 Patient Education: Patient [...] 20mg nightly 06/27/2018 Appointment: Verona Olivares WPtel: [facility] (15 min) Moderate 06/27/2018 Patient Education: Patient Medication Summary Completed 06/27/2018 Patient Education: Depression Completed 06/27/2018 Appointment: Verona Olivares WPtel: [facility] (15 min) Moderate 06/07/2018 Visit Plan: Hypertension [...] 10mg daily. 05/11/2018 Appointment: Verona Olivares WPtel: [phone] [facility] (15 min) Moderate 05/11/2018 Patient Education: Patient [...] not resolve 03/08/2017 Appointment: Che Garcia WPtel: [phone] (15 min) Moderate 03/08/2017 Patient Education: Patient [...] of plan. 09/06/2016 Appointment: Che Garcia WPtel: [facility] [address] (15 min) Moderate 09/06/2016 Patient Education: Patient Medication Summary Completed 09/06/2016 Appointment: Injection 07/30/2016 Patient Education: Patient Medication Summary Completed 07/30/2016 Visit Plan: Vtoua-bcxma-zwcy aches-patient sent for stat labs and influenza swab-will treat as indicated-instructed patient we will call her with the results of her testings-tylenol/motrin as needed for fever, increase po fluids. Patient verbalized understanding of plan. 07/08/2016 Appointment: Che Garcia WPtel: [phone] [phone] (15 min) Moderate 07/08/2016 Patient Education: Patient [...] completely resolve. 01/27/2015 Appointment: Che Garcia WPtel: [phone] [phone] Sick 01/27/2015 Patient Education: Patient Medication Summary Completed [...] blood pressures. 08/05/2014 Appointment: Verona Olivares WPtel: [address] [place], [place] [phone] Follow up 08/05/2014 Patient Education: Patient Medication [...] 02/04/2014 Appointment: Verona Olivares WPtel: [facility] Follow up 02/04/2014 Patient Education: Patient Medication [...] 11/05/2013 Appointment: Verona Olivares WPtel: [facility] Follow up 11/05/2013 Patient Education: Patient Medication Summary Completed 11/05/2013 Patient Education: Hypertension Completed 11/05/2013 Appointment: Verona Olivares WPtel: [facility] Follow up 10/18/2013 Appointment: Verona Olivares WPtel: [address] [place], [place] [phone] Follow up 08/07/2013 Visit Plan: Bronchitis - acute case of bronchitis identified. Pt has been given antibiotics, breathing treatments as appropriate, and pt has been instructed to call if symptoms are not improved, or if symptoms acutely worsen. RX sent to patient's pharmacy. 07/17/2013 Appointment: Che Garcia WPtel: [phone] [facility] 07/17/2013 Patient Education: Patient Medication Summary Completed [...] allergy spray. 06/07/2013 Appointment: [phone] [facility] 06/07/2013 Patient Education: Patient Medication Summary Completed [...] current medications. 04/30/2013 [phone] [facility] 04/30/2013 Patient Education: Patient Medication [...] medications. 01/29/2013 Appointment: Verona Olivares WPtel: [phone] [facility] Follow up 01/29/2013 Patient Education: Patient Medication [...] options. 10/30/2012 Appointment: Verona Olivares WPtel: [phone] [facility] Follow up 10/30/2012 Patient Education: Patient Medication [...] current medications. 07/12/2012 [facility]ment[phone] [facility] 07/12/2012 Patient Education: Patient Medication [...] above medications. 06/07/2012 Appointment: Verona Olivares WPtel: [address] [place] [address] Other 06/07/2012 Patient Education: Patient Medication Summary Completed 06/07/2012 Patient Education: High Blood Pressure: Essential Hypertension Completed 2011 Appointment: Verona Olivares WPtel: [address] [place] [address] Other 05/29/2012 Visit Plan: Hypertension - well [...] for cough 12/01/2011 Appointment: Verona Olivares WPtel: [facility] [address] Follow up 12/01/2011 Patient Education: Patient Medication [...] change today. 11/18/2011 Appointment: Verona Olivares WPtel: [address] [place] [address] Other 11/18/2011 Patient Education: Patient Medication Summary [...] acute conerns. 11/09/2011 Appointment: Verona Olivares WPtel: [address] [place], [place] [phone] Surgical Procedure 11/09/2011 Patient Education: Patient Medication [...] diet. 10/27/2011 App[facility]ment[phone] [facility] 10/27/2011 Patient Education: Patient Medication Summary Completed 10/27/2011 Patient Education: Restless Legs Syndrome Completed 10/27/2011 Patient Education: Insomnia Completed 10/27/2011 Instructions Comment ilda alvarado 2 tabs twice daily with food x 10 days xray shoulders . Biceps tendinitis - pt to do exercises as directed, ant-inflammatories directed to be taken per RX instructions and pt to call if symptoms are not improved. . Restless leg syndrome- start on mirapex [...] back on added salt in the diet. . Hyperlipidemia - pt has been counseled [...] - no change in current medications. . Hypertension - uncontrolled - the patient's [...] exposure. No change in current medications. . Hypertension - well controlled - continue [...] this patient. Start on Lexapro 10mg daily. CONTINUE ANTI INFLAMMATORIES DIRECTED TAKE PAIN MEDICATION [...] exposure. No change in current medications. . Hfuft-yiigb-xeie aches-patient sent for stat labs and influenza [...] nasal steroid allergy spray. . Hypertension - well controlled - continue [...] with pt to be used for cough . Hypertension - well controlled - continue [...] pt is tapered off of the antidepressant. Prednisone 40mg a day, you can split the dose to 20mg in the morning and at noon. Steroid shot today, call me if it gets worse or does not seem to be improving. . Rash - RX given, pt is to notify clinic if rash does not improve, if it worsens, or with any concerns. . Hypertension - uncontrolled - the patient [...] pustular drainage, or any other acute conerns. . URI - Pt advised to increase [...] nasal steroid allergy spray. . Hypertension - well controlled - continue [...] exposure. No change in current medications. . Hypertension - well controlled - continue [...] level, therefore, no medication change today. . URI-cough - Pt advised to increase [...] mupirocin ointment. Patient verbalized understanding of plan. Topical steroid in addition to benadryl cream x 10 days. Culture area on right upper arm. RTC if itching worsens or does not improve in the next week. . Itching-excoriation of right upper arm-bacterial culture of excoriated areas today in the office-RX for triamcinolone cream provided and instructed on use- if culture positive, will add mupirocin ointment. Patient verbalized understanding of plan. . Bronchitis - acute case of bronchitis identified. Pt has been given antibiotics, breathing treatments as appropriate, and pt has been instructed to call if symptoms are not improved, or if symptoms acutely worsen. RX sent to patient's pharmacy. extended release melatonin you can take up [...] any worse. RX sent to patient's pharmacy. L-TRYPTOPHAN - MAY HELP AIDE SLEEP.. Insomnia - Pt has been advised to increase the light in the house during the day, and start dimming the lights during the evening hours. Pt has been advised to cut out caffiene after 5pm. Daytime napping worsens night time insomnia. Pt states that melatonin did not help, alprazolam did not help- therefore recommended L-tryptophan for sleep. Pt to use voltaren gel 2 grams [...] pt has reports of improved blood pressures. . Sinusitis - Pt has acute infection - pain in face, maxillary region, Pt informed to use decongestant, RX given to patient, sinus rinses also recommended. Call if symptoms do not show improvement. FLONASE 1 SPRAY EACH NARE DAILY . [...]
--- OUTSIDE RECORDS SUMMARY | 2019-03-02 10:24 | XMS REPORT | CCD ---
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 Name Role Phone Verona Olivares PP Unavailable CCM Unavailable Summary Purpose Interface Exchange Insurance Providers Payer name Policy type / Coverage type Covered alliance party ID Effective Begin Date Effective End Date [facility] [id number] 2016 Unknown Family history Mother Diagnosis Age [...] Currently employed 10/27/[address]: 333851500 Never smoker 10/27/[address]: 004177169 Never drinks alcohol 10/27/2011 Has the patient [...] Fill Instructions amoxicillin 500 mg capsule RxNorm: 158017 1 Capsule(s) PO TID 02/05/2019 02/14/2019 Active escitalopram 20 mg tablet RxNorm: 242306 1 Tablet(s) PO QPM 09/201905/25/2019 Active alprazolam 0.5 mg tablet RxNorm: 141902 Tablet(s) TAKE ONE-HALF TO ONE TABLET BY MOUTH EVERY 8 HOURS NEEDED 01/16/2019 01/30/2019 Inactive prednisone 20 mg tablet RxNorm: 298297 2 Tablet(s) PO daily 12/10/2018 Inactive Augmentin 875 mg-125 mg tablet RxNorm: 643832 1 Tablet(s) PO BID 12/11/2018 12/17/2018 Inactive Augmentin 875 mg-125 mg tablet RxNorm: 537650 1 Tablet(s) PO BID 12/11/2018 12/10/2018 Inactive prednisone 20 mg tablet RxNorm: 170259 2 Tablet(s) PO daily 12/13/2018 Inactive promethazine 6.25 mg-codeine 10 mg/5 mL syrup RxNorm: 903751 5-10 Milliliter(s) PO Q6 PRN 11/24/2018 No Stop Date Active Zithromax Z-Tomás 250 mg tablet RxNorm: 164941 1 Tablet(s) PO UD 11/24/2018 11/28/2018 Inactive Kenalog 40 mg/mL suspension for injection RxNorm: 0069202 Milliliter(s) Inj 11/24/2018 11/24/2018 Inactive lisinopril 10 mg tablet RxNorm: 807129 1 Tablet(s) PO daily 04/12/2019 Active doxepin 10 mg capsule RxNorm: 2641424 1 Capsule(s) PO QHS as needed insomnia 10/31/2018 01/28/2019 Inactive Kenalog 40 mg/mL suspension for injection RxNorm: 6922256 Milliliter(s) Inj 09/26/2018 09/26/2018 Inactive Augmentin 875 mg-125 mg tablet RxNorm: 601623 1 Tablet(s) PO BID 09/26/2018 10/05/2018 Inactive escitalopram 20 mg tablet RxNorm: 011175 1 Tablet(s) PO QPM 08/201801/22/2019 Inactive lisinopril 10 mg tablet RxNorm: 790864 1 Tablet(s) PO daily 02/201811/13/2018 Inactive escitalopram 10 mg tablet RxNorm: 316260 1 Tablet(s) PO QPM 06/26/2018 Inactive lisinopril 10 mg tablet RxNorm: 962277 1 Tablet(s) PO daily 06/20/2018 Inactive alprazolam 0.5 mg tablet RxNorm: 039024 TAKE ONE-HALF TO ONE TABLET BY MOUTH EVERY 6 HOURS NEEDED 09/20/20172018 Inactive Augmentin 875 mg-125 mg tablet RxNorm: 569243 1 Tablet(s) PO BID 03/08/2017 03/17/2017 Inactive alprazolam 0.5 mg tablet RxNorm: 344723 Tablet(s) PO Q6 as needed TAKE ONE-HALF TO ONE TABLET BY MOUTH EVERY 6 HOURS NEEDED 12/24/2016 01/22/2017 Inactive triamcinolone acetonide 0.5 % topical cream RxNorm: 4387205 1 Application TOP BID 09/06/2016 09/15/2016 Inactive Levaquin 500 mg tablet RxNorm: 657447 1 Tablet(s) PO daily 07/14/2016 Inactive please call her when ready Levaquin 500 mg tablet RxNorm: 957627 1 Tablet(s) PO daily 07/07/2016 Inactive alprazolam 0.5 mg tablet RxNorm: 601713 Tablet(s) PO Q6 as needed TAKE ONE-HALF TO ONE TABLET BY MOUTH EVERY 6 HOURS NEEDED 04/26/2016 12/23/2016 Inactive Generic For:*XANAX 0.5 MG TABLET 05/16/2013 1:18:18 PM (Appended: Controlled substance eRx refill - RxReferenceNumber: [id number]) alprazolam 0.5 mg tablet RxNorm: 580574 Tablet(s) PO Q6 as needed TAKE ONE-HALF TO ONE TABLET BY MOUTH EVERY 6 HOURS NEEDED 04/26/2016 09/19/2017 Inactive Generic For:*XANAX 0.5 MG TABLET 05/16/2013 1:18:18 PM (Appended: Controlled substance eRx refill - RxReferenceNumber: [id number]) betamethasone dipropionate 0.05 % topical cream RxNorm: 391730 1 TOP UD 1-2 x per day PRN 01/16/2016 No Stop Date Active Kenalog 40 mg/mL suspension for injection RxNorm: 7181984 Milliliter(s) Inj 01/14/2016 01/14/2016 Inactive prednisone 20 mg tablet RxNorm: 279231 2 Tablet(s) PO daily 01/18/2016 Inactive alprazolam 0.5 mg tablet RxNorm: 231507 Tablet(s) PO Q6 as needed TAKE ONE-HALF TO ONE TABLET BY MOUTH EVERY 6 HOURS NEEDED 09/26/2015 04/25/2016 Inactive Generic For:*XANAX 0.5 MG TABLET 05/16/2013 1:18:18 PM (Appended: Controlled substance eRx refill - RxReferenceNumber: [id number]) azithromycin 250 mg tablet RxNorm: 761638 1 Tablet(s) PO UD 2 pills day one and 1 pill day 2-5 08/29/2015 09/02/2015 Inactive Keflex 500 mg capsule RxNorm: 431823 1 Capsule(s) PO TID 201402/09/2015 Inactive take a probiotic while on the abt Keflex 500 mg capsule RxNorm: 594526 1 Capsule(s) PO TID 201402/02/2015 Inactive take a probiotic while on the abt hydrocodone 5 mg-acetaminophen 325 mg tablet RxNorm: 348921 1 Tablet(s) PO Q6 PRN 01/27/2015 08/16/2015 Inactive Kenalog 40 mg/mL suspension for injection RxNorm: 7084697 2 Milliliter(s) Inj 05/02/2014 05/02/2014 Inactive Zithromax Z-Tomás 250 mg tablet RxNorm: 773914 1 Tablet(s) PO QPM 05/02/2014 05/06/2014 Inactive Rocephin 500 mg solution for injection RxNorm: 057765 1 Milliliter(s) Inj 05/02/2014 05/02/2014 Inactive metoprolol tartrate 25 mg tablet RxNorm: 923850 1/2 Tablet(s) PO BID TAKE ONE- HALF TABLET BY MOUTH TWICE DAILY 11/05/2013 02/03/2014 Inactive vilazodone 40 mg tablet RxNorm: 2250323 1 Tablet(s) PO daily 02/03/2014 Inactive Zithromax Z-Tomás 250 mg tablet RxNorm: 526658 Tablet(s) PO 07/1711/04/2013 Inactive Rocephin 500 mg Solution for Injection RxNorm: 4259627 Inj 10/201207/17/2013 Inactive Kenalog 40 mg/mL Susp for Injection RxNorm: 2080504 1 Milliliter(s) Inj 06/07/2013 06/07/2013 Inactive alprazolam 0.5 mg tablet RxNorm: 526122 1/2-1 Tablet(s) PO Q6 PRN 05/17/2013 No Stop Date Active alprazolam 0.5 mg tablet RxNorm: 072158 Tablet(s) PO TAKE ONE-HALF TO ONE TABLET BY MOUTH EVERY 6 HOURS NEEDED 05/17/2013 09/25/2015 Inactive Generic For:*XANAX 0.5 MG TABLET 05/16/2013 1:18:18 PM (Appended: Controlled substance eRx refill - RxReferenceNumber: [id number]) metoprolol tartrate 25 mg tablet RxNorm: 571397 Tablet(s) PO TAKE ONE-HALF TABLET BY MOUTH TWICE DAILY 02/12/20132013 Inactive metoprolol tartrate 25 mg tablet RxNorm: 384400 1/2 Tablet(s) PO BID 01/29/2013 05/28/2013 Inactive alprazolam 0.5 mg tablet RxNorm: 989872 1/2-1 Tablet(s) PO Q6 PRN 11/28/2012 05/17/2013 Inactive lisinopril 10 mg tablet RxNorm: 558775 1 Tablet(s) PO daily 01/28/2013 Inactive vilazodone 40 mg tablet RxNorm: 0135689 1 Tablet(s) PO daily 02/03/2013 Inactive metoprolol tartrate 25 mg tablet RxNorm: 535509 1/2 Tablet(s) PO BID 06/07/2012 10/04/2012 Inactive amoxicillin-potassium clavulanate 500 mg-125 mg tablet RxNorm: 551971 1 Tablet(s) PO TID 06/07/2012 06/13/2012 Inactive Ambien 5 mg tablet RxNorm: 204381 1 Tablet(s) PO HS PRN 05/0205/31/2012 Inactive lisinopril 10 mg tablet RxNorm: 117409 1 Tablet(s) PO daily 06/05/2012 Inactive pramipexole 0.5 mg Tab RxNorm: 841363 1/2 Tablet(s) PO QHS 01/29/2012 Inactive pramipexole 0.5 mg Tab RxNorm: 341577 1 Tablet(s) PO QHS 201110/31/2011 Inactive Fish Oil 1,200 mg-144 mg-216 mg Cap RxNorm: 1 Capsule(s) PO daily No Start Date Active potassium 99 mg Tab RxNorm: 1 Tablet(s) PO daily No Start Date 10/29/2012 Inactive betamethasone dipropionate 0.05 % topical cream RxNorm: 850838 1 TOP UD 1-2 x per day PRN No Start Date 01/15/2016 Inactive alprazolam 0.5 mg tablet RxNorm: 300773 1/2-1 Tablet(s) PO Q6 PRN No Start Date 11/27/2012 Inactive Ambien 5 mg tablet RxNorm: 388455 1 Tablet(s) PO HS PRN No Start Date 05/01/2012 Inactive calcium & magnesium carbonates 311 mg-232 mg Tab RxNorm: 026769 1 Tablet(s) PO BID No Start Date 10/29/2012 Inactive multivitamin Tab RxNorm: 1 Tablet(s) PO daily No Start Date 10/29/2012 Inactive vilazodone 40 mg tablet RxNorm: 1413833 1 Tablet(s) PO daily No Start Date 08/07/2012 Inactive Zithromax Z-Tomás 250 mg tablet RxNorm: 057497 Tablet(s) PO No Start Date 07/16/2013 Inactive Medication Administered Medication Codes Instructions Start Date Status Kenalog 40 mg/mL suspension for injection RxNorm: 1996850 Milliliter 11/24/2018 No longer Active Kenalog 40 mg/mL suspension for injection RxNorm: 0267018 Milliliter 09/26/2018 No longer Active Kenalog 40 mg/mL suspension for injection RxNorm: 5829845 Milliliter 01/14/2016 No longer Active Kenalog 40 mg/mL suspension for injection RxNorm: 1777794 2Milliliter 05/02/2014 No longer Active Rocephin 500 mg solution for injection RxNorm: 767782 1Milliliter 05/02/2014 No longer Active Rocephin 500 mg Solution for Injection RxNorm: 1447523 07/17/2013 No longer Active Kenalog 40 mg/mL Susp for Injection RxNorm: 7982692 1Milliliter 06/07/2013 No longer Active Immunizations Vaccine [...] NEC ICD-9: 311 2013 ESSENTIAL HYPERTENSION SNOMED: 89128686 ICD-9: 401.9 11/05/2013 ACUTE BRONCHITIS ICD-9: 466.0 [...] Item Item Code Result Date Influenza A+B Qzs211 Influ A+B Negative 07/08/2016 Cbc With Differential [...] 29.7 pg 07/08/2016 Cbc With Differential Ord2 Norman% 6.8 % 07/08/2016 Cbc With Differential Ord2 [...] 1.19 K/ul 07/08/2016 Cbc With Differential Ord2 Norman ABS# 1.1 K/ul 07/08/2016 Cbc With Differential Ord2 Eos ABS# 0.0 K/ul 07/08/2016 Cbc With Differential Ord2 Baso ABS# 0.0 K/ul 07/08/2016 Comp Metabolic Jsc744 NA 134 mEq/L 07/08/2016 Comp Metabolic Urk583 K 3.9 mEq/L 07/08/2016 Comp Metabolic Zvl496 CL 101 mEq/L 07/08/2016 Comp Metabolic Lrp241 CO2 27.0 mEq/L 07/08/2016 Comp Metabolic Hmu627 ANION GAP 10 07/08/2016 Comp Metabolic Nes879 GLUCOSE 120 mg/dL 07/08/2016 Comp Metabolic Wpg966 Creat 0.9 mg/dL 07/08/2016 Comp Metabolic Twq058 eGFR 71 ml/min/1.73m2 07/08/2016 Comp Metabolic Yte630 BUN 16 mg/dL 07/08/2016 Comp Metabolic Pkw766 B/C Ratio 18.4 Ratio 07/08/2016 Comp Metabolic Nzd577 CALCIUM 10.0 mg/dL 07/08/2016 Comp Metabolic Cpn991 ALK PHOS 57 U/L 07/08/2016 Comp Metabolic Mmb433 AST(SGOT) 21 U/L 07/08/2016 Comp Metabolic Afi488 ALT(SGPT) 20 U/L 07/08/2016 Comp Metabolic Fbo124 BILI T 1.1 mg/dL 07/08/2016 Comp Metabolic Vwh906 ALBUMIN 3.9 g/dL 07/08/2016 Comp Metabolic Uos866 TPRO 6.2 g/dL 07/08/2016 Comp Metabolic Svg967 GLOB 2.4 g/dL 07/08/2016 Comp Metabolic Bkx311 A/G Ratio 1.6 Ratio 07/08/2016 Comp Metabolic Pol566 Osmo 271 mOsmo 07/08/2016 Comp Metabolic Ndi297 NA 130 mEq/L 08/29/2015 Comp Metabolic And257 K 4.0 mEq/L 08/29/2015 Comp Metabolic Ssr024 CL 99 mEq/L 08/29/2015 Comp Metabolic Ixd872 CO2 21.0 mEq/L 08/29/2015 Comp Metabolic Pnm492 ANION GAP 14 08/29/2015 Comp Metabolic Pgo113 GLUCOSE 105 mg/dL 08/29/2015 Comp Metabolic Uty663 Creat 1.0 mg/dL 08/29/2015 Comp Metabolic Sgc254 eGFR 62 ml/min/1.73m2 08/29/2015 Comp Metabolic Mub866 BUN 8 mg/dL 08/29/2015 Comp Metabolic Gph261 B/C Ratio 8.2 Ratio 08/29/2015 Comp Metabolic Svz181 CALCIUM 9.9 mg/dL 08/29/2015 Comp Metabolic Ggb853 ALK PHOS 93 U/L 08/29/2015 Comp Metabolic Yiw226 AST(SGOT) 16 U/L 08/29/2015 Comp Metabolic Tgm481 ALT(SGPT) 22 U/L 08/29/2015 Comp Metabolic Lfj254 BILI T 0.6 mg/dL 08/29/2015 Comp Metabolic Syp407 ALBUMIN 4.3 g/dL 08/29/2015 Comp Metabolic Sdx290 TPRO 6.7 g/dL 08/29/2015 Comp Metabolic Yog570 GLOB 2.4 g/dL 08/29/2015 Comp Metabolic Obh725 A/G Ratio 1.8 Ratio 08/29/2015 Comp Metabolic Min139 Osmo 259 mOsmo 08/29/2015 Cbc With Differential [...] CPT-4: J3301 09/26/2018 THER/PROPH/DIAG INJ SC/IM CPT-4: 17180 09/26/2018 IMMUNIZATION ADMIN CPT -4: 69551 06/27/2018 FLU VAC NO PRSV 4 RAHUL 3 YRS+ Formatting Model/CDA Sections, Assigned to/Zonia Martinez CPT-4: 65196Ekxnudn 06/27/2018 IMMUNIZATION ADMIN CPT -4: 10308 07/30/2016 IIV4 FLU VACC NO PRESERV ID SNOMED CT: 77405501 CPT-4: 45881 07/30/2016 TRIAMCINOLONE ACET INJ NOS CPT-4: J3301 01/14/2016 IMMUNIZATION ADMIN CPT -4: 29400 07/23/2015 IMMUNIZATION ADMIN EACH ADD CPT-4: 13465 07/23/2015 FLU VACC 4 RAHUL 3 YRS PLUS IM Formatting Model/CDA Sections, Assigned to SNOMED CT: 37983453 CPT-4: 69180Hecjnwz 07/23/2015 THER/PROPH/DIAG INJ SC/IM CPT-4: 32564 05/02/2014 ROCEPHIN, PER 250 MG CPT-4: J0696 05/02/2014 TRIAMCINOLONE ACET INJ NOS CPT-4: J3301 05/02/2014 ROCEPHIN, PER 250 MG CPT-4: J0696 07/17/2013 TRIAMCINOLONE ACET INJ NOS CPT-4: J3301 06/07/2013 BIOPSY SKIN LESION CPT -4: 99626 11/09/2011 Vital Signs Date Vital 02/05/2019 Blood Pressure 1: 146/88 Code : 8480-6 BMI: 34.4 Code : 74878-3 Heart Rate 1 : 65 bpm Height: 5'8" SpO2: 98% Weight: 226 lbs 11/24/2018 Blood Pressure 1: 122/70 Code : 8480-6 BMI: 32.7 Code : 52753-3 Heart Rate 1 : 85 bpm Height: 5'8" SpO2: 98% Temperature: 36.6 (C) / 97.9 (F) Weight: 215 lbs 10/31/2018 Blood Pressure 1: 126/78 Code : 8480-6 BMI: 32.7 Code : 43043-8 Heart Rate 1 : 75 bpm Height: 5'8" SpO2: 97% Weight: 215 lbs 09/26/2018 Blood Pressure 1: 130/78 Code : 8480-6 BMI: 32.4 Code : 11447-4 Heart Rate 1 : 67 bpm Height: 5'8" SpO2: 97% Temperature: 36.5 (C) / 97.7 (F) Weight: 213 lbs 06/27/2018 Blood Pressure 1: 132/78 Code : 8480-6 BMI: 33.9 Code : 00414-6 Heart Rate 1 : 66 bpm Height: 5'8" SpO2: 95% Weight: 223 lbs 05/11/2018 Blood Pressure 1: 140/90 Code : 8480-6 BMI: 33.8 Code : 17180-5 Heart Rate 1 : 74 bpm Height: 5'8" SpO2: 98% Weight: 222 lbs 03/08/2017 Blood Pressure 1: 144/86 Code : 8480-6 BMI: 31.2 Code : 62871-6 Heart Rate 1 : 70 bpm Height: 5'8" SpO2: 98% Weight: 205 lbs 09/06/2016 Blood Pressure 1: 128/86 Code : 8480-6 BMI: 28.4 Code : 61792-8 Heart Rate 1 : 86 bpm Height: 5'8" SpO2: 96% Weight: 187 lbs 07/08/2016 Blood Pressure 1: 120/60 Code : 8480-6 BMI: 28.4 Code : 69961-5 Height: 5'8" Temperature: 37.8 (C) / 100.1 (F) Weight: 187 lbs 01/14/2016 Blood Pressure 1: 152/86 Code : 8480-6 BMI: 30.4 Code : 74090-4 Heart Rate 1 : 83 bpm Height: 5'8" SpO2: 97% Weight: 200 lbs 11/17/2015 Blood Pressure 1: 142/90 Code : 8480-6 BMI: 33.9 Code : 35658-7 Heart Rate 1 : 75 bpm Height: 5'8" SpO2: 97% Weight: 223 lbs 08/29/2015 BMI: 35.6 Code: 57248-1 Heart Rate 1: 94 bpm Height: 5'8" SpO2: 98% Weight: 234 lbs 01/27/2015 Blood Pressure 1: 140/94 Code : 8480-6 Heart Rate 1: 88 bpm Height: 5'8" SpO2: 98% Weight: 08/05/2014 Blood Pressure 1: 138/82 Code : 8480-6 BMI: 33.6 Code : 32848-6 Heart Rate 1 : 76 bpm Height: 5'8" Weight: 221 lbs 05/02/2014 Blood Pressure 1: 142/82 Code : 8480-6 Heart Rate 1: 84 bpm Height: SpO2: 100% Temperature: 37.1 (C) / 98.7 (F) Weight: 02/04/2014 Blood Pressure 1: 108/78 Code : 8480-6 BMI: 36.2 Code : 28204-5 Heart Rate 1 : 60 bpm Height: 5'8" Weight: 238 lbs 11/05/2013 Blood Pressure 1: 134/74 Code : 8480-6 BMI: 35.9 Code : 31984-6 Heart Rate 1 : 68 bpm Height: 5'8" Weight: 236 lbs 07/17/2013 Blood Pressure 1: 136/88 Code : 8480-6 BMI: 35.9 Code : 28749-9 Heart Rate 1 : 72 bpm Height: 5'8" Temperature: 36.4 (C) / 97.6 (F) Weight: 236 lbs 06/07/2013 Blood Pressure 1: 134/92 Code : 8480-6 Heart Rate 1: 72 bpm Temperature: 37.0 (C) / 98.6 (F) Weight: 04/30/2013 Blood Pressure 1: 148/78 Code : 8480-6 BMI: 35.1 Code : 27655-9 Heart Rate 1 : 64 bpm Height: 5'8" Weight: 231 lbs 01/29/2013 Blood Pressure 1: 128/84 Code : 8480-6 BMI: 34.4 Code : 28804-2 Heart Rate 1 : 76 bpm Height: 5'8" Weight: 226 lbs 10/30/2012 Blood Pressure 1: 118/72 Code : 8480-6 BMI: 33.5 Code : 89401-0 Heart Rate 1 : 64 bpm Height: [...] Code : 8480-6 BMI: 29.5 Code : 17402-5 Heart Rate 1 : 72 bpm Height: [...] Code : 8480-6 BMI: 29.3 Code : 37265-5 Heart Rate 1 : 76 bpm Height: [...] data Encounters Encounter Performer Location Codes Date 93222 EST. PATIENT, LEVEL IV Diagnosis: Other acute sinusitis[ICD10: J01.80] Diagnosis: Other allergic rhinitis[ICD10: J30.89] [facility] CPT-4: 80010 02/05/2019 ([id number]) 49299 EST. PATIENT, LEVEL III Diagnosis: Cough[ICD10: R05] Diagnosis: Acute upper respiratory infection, unspecified[ICD10: J06.9] Che Olivares MD, [facility] CPT-4: 06771 11/24/2018 ([id number]) 95409 EST. PATIENT, LEVEL III Diagnosis: Essential (primary) hypertension[ICD10: I10] Diagnosis: Major depressive disorder, recurrent, moderate[ICD10: F33.1] Diagnosis: Other insomnia[ICD10: G47.09] Verona Olivares MD, [facility] CPT- 4: 65472 10/31/2018 38904 EST. PATIENT, LEVEL III Diagnosis: Acute laryngopharyngitis[ICD10: J06.0] Diagnosis: Other allergic rhinitis[ICD10: J30.89] Solange Olivares MD, [facility] CPT-4: 35461 09/26/2018 ([id number]) 70768 EST. PATIENT, LEVEL III Diagnosis: Essential (primary) hypertension[ICD10: I10] Diagnosis: Major depressive disorder, recurrent, moderate[ICD10: F33.1] Diagnosis: Generalized anxiety disorder[ICD10: F41.1] Diagnosis: Encounter for immunization[ICD10: Z23] Verona Olivares MD, [facility] CPT-4: 08009 06/27/2018 ([id number]) 00071 EST. PATIENT, LEVEL IV Diagnosis: Essential (primary) hypertension[ICD10: I10] Diagnosis: Major depressive disorder, recurrent, moderate[ICD10: F33.1] Diagnosis: Generalized anxiety disorder[ICD10: F41.1] Verona Olivares MD, [facility] CPT-4: 50175 05/11/2018 ([id number]) 21376 EST. PATIENT, LEVEL III Diagnosis: Acute recurrent maxillary sinusitis[ICD10: J01.01] Diagnosis: Other hallucinations[ICD10: R44.2] Diagnosis: Allergic rhinitis due to pollen[ICD10: J30.1] Che Olivares MD, [facility] CPT-4: 09385 03/08/2017 ([id number]) 22730 EST. PATIENT, LEVEL II Diagnosis: Cellulitis of right upper limb[ICD10: L03.113] Che Olivares MD, [facility] CPT-4: 16660 09/06/2016 ([id number]) 47907 EST. PATIENT, LEVEL III Diagnosis: Cough[ICD10: R05] Diagnosis: Fever, unspecified[ICD10: R50.9] Diagnosis: Pain, unspecified[ICD10: R52] Che Olivares MD [facility] CPT-4: 84420 07/08/2016 21529 EST. PATIENT, LEVEL IV Diagnosis: Rash and other nonspecific skin eruption[ICD10: R21] Solange Olivares MD, [facility] CPT-4: 79738 01/14/2016 ([id number]) 94965 EST. PATIENT, LEVEL III Diagnosis: Pain in left shoulder[ICD10: M25.512] Diagnosis: Pain in right shoulder[ICD10: M25.511] Diagnosis: Bicipital tendinitis, left shoulder[ICD10: M75.22] Che Olivares MD, [facility] CPT-4: 57752 11/17/2015 45770 EST. PATIENT, LEVEL IV Diagnosis: Epigastric pain[ICD10: R10.13] Diagnosis: Acute upper respiratory infection, unspecified[ICD10: J06.9] Solange Olivares MD , [facility] CPT-4: 67969 08/29/2015 ([id number]) 76321 EST. PATIENT, LEVEL III Diagnosis: Left knee pain[ICD9: 719.46] Diagnosis: ACUTE URI[ICD9: 465.9] Diagnosis: ALLERGIC RHINITIS[ICD9: 477.9] Che Olivares MD, [facility] CPT-4: 42447 01/27/2015 ([id number]) 55822 EST. PATIENT, LEVEL III Diagnosis: Elevated blood pressure (not hypertension)[ICD9: 796.2] Diagnosis: Biceps tendinitis[ICD9: 726.12] Diagnosis: Wrist pain, acute[ICD9: 719.43] Verona Olivares MD, [facility] CPT- 4: 52628 08/05/2014 ([id number]) 57383 EST. PATIENT, LEVEL III Diagnosis: Acute maxillary sinusitis[ICD9: 461.0] Verona Olivares MD, [facility] CPT-4: 37930 05/02/2014 ([id number]) 77255 EST. PATIENT, LEVEL III Diagnosis: INSOMNIA IN OTHER DIS[ICD9: 327.01] Verona Olivares MD, [facility] CPT-4: 81448 02/04/2014 ([id number]) 86635 EST. PATIENT, LEVEL III Diagnosis: ESSENTIAL HYPERTENSION[SNOMED: 32215536] Diagnosis: DEPRESSIVE DISORDER NEC[ICD9: 311] [facility] CPT-4: 99130 11/05/2013 ([id number]) 22269 EST. PATIENT, LEVEL III Diagnosis: ACUTE BRONCHITIS[ICD9: 466.0] Che Olviares MD, [facility] CPT-4: 83099 07/17/2013 ([id number]) 45463 EST. PATIENT, LEVEL III Diagnosis: ACUTE URI[ICD9: 465.9] Diagnosis: COUGH[ICD9: 786.2] Diagnosis: ALLERGIC RHINITIS[ICD9: 477.9] [facility] CPT-4: 96776 06/07/2013 ([id number]) 95358 EST. PATIENT, LEVEL III Diagnosis: ESSENTIAL HYPERTENSION[SNOMED: 31029609] Diagnosis: DEPRESSIVE DISORDER NEC[ICD9: 311] Verona Olivares MD, [facility] CPT-4: 19193 04/30/2013 ([id number]) 56447 EST. PATIENT, LEVEL III Diagnosis: ESSENTIAL HYPERTENSION[SNOMED: 02092045] Diagnosis: DEPRESSIVE DISORDER NEC[ICD9: 311] [facility] CPT-4: 07768 01/29/2013 ([id number]) 44601 EST. PATIENT, LEVEL IV Diagnosis: ESSENTIAL HYPERTENSION[SNOMED: 65670809] Diagnosis: DEPRESSIVE DISORDER NEC[ICD9: 311] Diagnosis: OBESITY[ICD9: 278.00] [facility] CPT-4: 47551 10/30/2012 ([id number]) 90390 EST. PATIENT, LEVEL III Diagnosis: ESSENTIAL HYPERTENSION[SNOMED: 85876463] Diagnosis: HYPERLIPIDEMIA[ICD9: 272.4] Diagnosis: DEPRESSIVE DISORDER NEC[ICD9: 311] [facility] CPT-4: 37140 07/12/2012 ([id number]) 34661 EST. PATIENT, LEVEL IV Diagnosis: ESSENTIAL HYPERTENSION[SNOMED: 80103219] Diagnosis: DEPRESSIVE DISORDER NEC[ICD9: 311] Diagnosis: Palpitations[ICD9: 785.1] Diagnosis: Acute maxillary sinusitis[ICD9: 461.0] Verona Olivares MD, [facility] CPT-4: 41343 06/07/2012 60743 EST. PATIENT, LEVEL IV Diagnosis: ESSENTIAL HYPERTENSION[SNOMED: 54298616] Diagnosis: COUGH[ICD9: 786.2] Diagnosis: Upper respiratory infection[ICD9: 465.9] Verona Olivares MD, [facility] CPT-4: 14647 12/01/2011 ([id number]) 77279 EST. PATIENT, LEVEL III Diagnosis: ESSENTIAL HYPERTENSION[SNOMED: 42510352] [facility]IAS Monroe MD CPT-4: 37471 11/18/2011 ([id number]) 81626 EST. PATIENT, LEVEL III Diagnosis: ESSENTIAL HYPERTENSION[SNOMED: 08588574] ABDIAS Monroe MD CPT-4: 47772 11/09/2011 ([id number]) OFFICE VISIT, NEW - LEVEL 4 Diagnosis: Restless leg syndrome[ICD9: 333.94] Diagnosis: INSOMNIA IN OTHER DIS[ICD9: 327.01] Diagnosis: Elevated blood pressure (not hypertension)[ICD9: 796.2] Verona Olivares MD, [facility] CPT-4: 99588 10/27/2011 Plan of Care Planned Activity Notes [...] pharmacy. 11/24/2018 Appointment: Che Garcia WPtel: [phone] [phone] (15 min) Moderate 11/24/2018 Patient Education: Patient [...] current medications. 10/31/2018 Appointment: Verona Olivares WPtel: [phone] [phone] [place] (15 min) Moderate 10/31/2018 Patient Education: [...] spray. 09/26/2018 Appointment: Che Garcia WPtel: [phone] [phone] Portal Appointment Requests 09/26/2018 Appointment: Solange Snyder WPtel: [phone] (15 min) Moderate 09/26/2018 Patient Education: Patient [...] 20mg nightly 06/27/2018 Appointment: Verona Olivares WPtel: [facility]5 [phone] (15 min) Moderate 06/27/2018 Patient Education: Patient Medication Summary Completed 06/27/2018 Patient Education: Depression Completed 06/27/2018 Appointment: Verona Olivares WPtel: [facility]5 [phone] (15 min) Moderate 06/07/2018 Visit Plan: Hypertension [...] 10mg daily. 05/11/2018 Appointment: Verona Olivares WPtel: [phone] [phone] (15 min) Moderate 05/11/2018 Patient Education: Patient [...] not resolve 03/08/2017 Appointment: Che Garcia WPtel: [facility]9 [phone] (15 min) Moderate 03/08/2017 Patient Education: Patient [...] of plan. 09/06/2016 Appointment: Che Garcia WPtel: [facility] [phone] (15 min) Moderate 09/06/2016 Patient Education: Patient Medication Summary Completed 09/06/2016 Appointment: Injection 07/30/2016 Patient Education: Patient Medication Summary Completed 07/30/2016 Visit Plan: Pxdeh-mxsyp-pnjk aches-patient sent for stat labs and influenza swab-will treat as indicated-instructed patient we will call her with the results of her testings-tylenol/motrin as needed for fever, increase po fluids. Patient verbalized understanding of plan. 07/08/2016 Appointment: Che Garcia WPtel: [phone] [phone] (15 min) Moderate 07/08/2016 Patient Education: Patient [...] completely resolve. 01/27/2015 Appointment: Che Garcia WPtel: [phone] [id number] Sick 01/27/2015 Patient Education: Patient Medication Summary [...] blood pressures. 08/05/2014 Appointment: Verona Olivares WPtel: [address] [place], [place] [phone] Follow up 08/05/2014 Patient Education: Patient Medication [...] for sleep. 02/04/2014 Appointment: Verona Olivares [facility]el[facility] [id number] Follow up 02/04/2014 Patient Education: Patient Medication [...] the antidepressant. 11/05/2013 Appointment: Verona Olivares WPtel: [facility] Follow up 11/05/2013 Patient Education: Patient Medication Summary Completed 11/05/2013 Patient Education: Hypertension Completed 11/05/2013 Appointment: Verona Olivares WPtel: [facility] Follow up 10/18/2013 Appointment: Verona Olivares WPtel: [address] [place], [place] [id number] Follow up 08/07/2013 Visit Plan: Bronchitis - acute case of bronchitis identified. Pt has been given antibiotics, breathing treatments as appropriate, and pt has been instructed to call if symptoms are not improved, or if symptoms acutely worsen. RX sent to patient's pharmacy. 07/17/2013 Appointment: hCe Garcia WPtel: [facility]5 [phone] [facility] 07/17/2013 Patient Education: Patient Medication Summary Completed [...] spray. 06/07/2013 [facility]ment[phone] [facility] 06/07/2013 Patient Education: Patient Medication Summary Completed [...] medications. 04/30/2013 [phone] [facility] 04/30/2013 Patient Education: Patient Medication [...] medications. 01/29/2013 Appointment: Verona Olivares WPtel: [phone] [facility] Follow up 01/29/2013 Patient Education: Patient Medication [...] options. 10/30/2012 Appointment: Verona Olivares WPtel: [phone] [facility] Follow up 10/30/2012 Patient Education: Patient Medication [...] medications. 07/12/2012 [phone] [facility] 07/12/2012 Patient Education: Patient Medication [...] above medications. 06/07/2012 Appointment: Verona Olivares WPtel: [address] [place] [address] Other 06/07/2012 Patient Education: Patient Medication Summary Completed 06/07/2012 Patient Education: High Blood Pressure: Essential Hypertension Completed 2011 Appointment: Verona Olivares WPtel: [address] [place] [address] Other 05/29/2012 Visit Plan: Hypertension - well [...] for cough 12/01/2011 Appointment: Verona Olivares WPtel: [facility] [address] Follow up 12/01/2011 Patient Education: Patient [...] change today. 11/18/2011 Appointment: Verona Olivares WPtel: [address] [place] [address] Other 11/18/2011 Patient Education: Patient Medication Summary [...] acute conerns. 11/09/2011 Appointment: Verona Olivares WPtel: [address] [place], [place] [phone] Surgical Procedure 11/09/2011 Patient Education: Patient Medication [...] diet. 10/27/2011 App[facility]ment: [phone] [facility] 10/27/2011 Patient Education: Patient Medication [...] exposure. No change in current medications. . [id number]-lydi aches-patient sent for stat labs and influenza [...] pustular drainage, or any other acute conerns. FLONASE 1 SPRAY EACH NARE DAILY . [...] not help- therefore recommended L-tryptophan for sleep. Take nexium daily. . Esophageal Reflux - [...] benefits of treament with the above medications. extended release melatonin you can take up [...] patient. Increase lexapro to 20mg nightly . Bronchitis - acute case of bronchitis [...] ointment. Patient verbalized understanding of plan. . URI-cough - Pt advised to increase [...] sent to patient's pharmacy. . Hypertension - well controlled - continue [...]
[2019-03-02] MEDS: TETRACAINE 0.5% OPHTH SOLN 4 ML BTL (SINGLE DOSE ONLY) OU PRN ×4 (10:27→10:49)
--- OUTSIDE RECORDS SUMMARY | 2019-03-02 10:27 | XMS REPORT | CCD ---
Author Author Verona Olivares Organization Verona Olivares MD, [facility] Address [address] [place] [address] Phone Care Team Providers Care Speed Reading Teacher Name Role Phone Verona Olivares PP Unavailable CCM Unavailable Summary Purpose Interface Exchange Insurance Providers Payer name Policy type / Coverage type Covered constitution party ID Effective Begin Date Effective End Date [employer] [id number] Unknown Family history Mother Diagnosis Age At [...] Currently employed 10/27/[address]: 396057985 Never smoker 10/27/[address]: 486433674 Never drinks alcohol 10/27/2011 Has the patient ever used illegal drugs? Unknown Has never used illegal drugs 10/27/2011 Allergies, Adverse Reactions, Alerts Substance Reaction Codes Entered Date Inactivated Date Status * NO KNOWN FOOD ALLERGIES Unknown 07/12/2012 No Inactive Date Active KENZIE INHIBITORS cough Unknown 06/07/2012 No Inactive Date Active Past Medical History Illness Codes Condition Status Onset Date Resolved Date Acute upper respiratory infection, unspecified ICD-9: 465.9 ICD-10: J06.9 Active 08/28/2015 Unknown Cough ICD-9: 786.2 ICD-10: R05 Active 07/07/2016 Unknown Essential (primary) hypertension ICD-9: 401.1 ICD-10: I10 Active 05/11/2018 Unknown Major depressive disorder, recurrent, moderate ICD-9: 296.32 ICD-10: F33.1 Active 05/11/2018 Unknown Other insomnia ICD-9: 327.09 ICD-10: G47.09 Active 10/31/2018 Unknown Acute laryngopharyngitis ICD-9: 465.0 ICD-10: J06.0 Active 09/26/2018 Unknown Other allergic rhinitis ICD-9: 477.8 ICD-10: J30.89 Active 09/26/2018 Unknown Encounter for immunization ICD-9: [...] Problems Condition Codes Effective Dates Condition Status Acute upper respiratory infection, unspecified ICD-9: 465.9 ICD-10: J06.9 08/28/2015 Active Cough ICD-9: 786.2 ICD-10: R05 07/07/2016 Active Essential (primary) hypertension ICD-9: 401.1 ICD-10: I10 05/11/2018 Active Major depressive disorder, recurrent, moderate ICD-9: 296.32 ICD-10: F33.1 05/11/2018 Active Other insomnia ICD-9: 327.09 ICD-10: G47.09 10/31/2018 Active Acute laryngopharyngitis ICD-9: 465.0 ICD-10: J06.0 09/26/2018 Active Other allergic rhinitis ICD-9: 477.8 ICD-10: J30.89 09/26/2018 Active Encounter for immunization ICD-9: V05.9 [...] Start Date Stop Date Status Fill Instructions escitalopram 20 mg tablet RxNorm: 025773 1 Tablet(s) PO QPM 09/201905/25/2019 Active alprazolam 0.5 mg tablet RxNorm: 055477 Tablet(s) TAKE ONE-HALF TO ONE TABLET BY MOUTH EVERY 8 HOURS NEEDED 01/16/2019 01/30/2019 Active prednisone 20 mg tablet RxNorm: 358771 2 Tablet(s) PO daily 12/10/2018 Inactive Augmentin 875 mg-125 mg tablet RxNorm: 209357 1 Tablet(s) PO BID 12/11/2018 12/17/2018 Inactive Augmentin 875 mg-125 mg tablet RxNorm: 560741 1 Tablet(s) PO BID 12/11/2018 12/10/2018 Inactive prednisone 20 mg tablet RxNorm: 002020 2 Tablet(s) PO daily 12/13/2018 Inactive promethazine 6.25 mg-codeine 10 mg/5 mL syrup RxNorm: 226691 5-10 Milliliter(s) PO Q6 PRN 11/24/2018 No Stop Date Active Zithromax Z-Tomás 250 mg tablet RxNorm: 578731 1 Tablet(s) PO UD 11/24/2018 11/28/2018 Inactive Kenalog 40 mg/mL suspension for injection RxNorm: 0080582 Milliliter(s) Inj 11/24/2018 11/24/2018 Inactive lisinopril 10 mg tablet RxNorm: 863150 1 Tablet(s) PO daily 04/12/2019 Active doxepin 10 mg capsule RxNorm: 4487561 1 Capsule(s) PO QHS as needed insomnia 10/31/2018 01/28/2019 Active Kenalog 40 mg/mL suspension for injection RxNorm: 9913936 Milliliter(s) Inj 09/26/2018 09/26/2018 Inactive Augmentin 875 mg-125 mg tablet RxNorm: 231576 1 Tablet(s) PO BID 09/26/2018 10/05/2018 Inactive escitalopram 20 mg tablet RxNorm: 088789 1 Tablet(s) PO QPM 08/201801/22/2019 Inactive lisinopril 10 mg tablet RxNorm: 633536 1 Tablet(s) PO daily 02/201811/13/2018 Inactive escitalopram 10 mg tablet RxNorm: 416133 1 Tablet(s) PO QPM 06/26/2018 Inactive lisinopril 10 mg tablet RxNorm: 994700 1 Tablet(s) PO daily 06/20/2018 Inactive alprazolam 0.5 mg tablet RxNorm: 981916 TAKE ONE-HALF TO ONE TABLET BY MOUTH EVERY 6 HOURS NEEDED 09/20/20172016 Inactive Augmentin 875 mg-125 mg tablet RxNorm: 051481 1 Tablet(s) PO BID 03/08/2017 03/17/2017 Inactive alprazolam 0.5 mg tablet RxNorm: 691471 Tablet(s) PO Q6 as needed TAKE ONE-HALF TO ONE TABLET BY MOUTH EVERY 6 HOURS NEEDED 12/24/2016 01/22/2017 Inactive triamcinolone acetonide 0.5 % topical cream RxNorm: 6245206 1 Application TOP BID 09/06/2016 09/15/2016 Inactive Levaquin 500 mg tablet RxNorm: 124743 1 Tablet(s) PO daily 07/14/2016 Inactive please call her when ready Levaquin 500 mg tablet RxNorm: 064776 1 Tablet(s) PO daily 07/07/2016 Inactive alprazolam 0.5 mg tablet RxNorm: 357846 Tablet(s) PO Q6 as needed TAKE ONE-HALF TO ONE TABLET BY MOUTH EVERY 6 HOURS NEEDED 04/26/2016 12/23/2016 Inactive Generic For:*XANAX 0.5 MG TABLET 05/16/2013 1:18:18 PM (Appended: Controlled substance eRx refill - RxReferenceNumber: [id number]) alprazolam 0.5 mg tablet RxNorm: 112450 Tablet(s) PO Q6 as needed TAKE ONE-HALF TO ONE TABLET BY MOUTH EVERY 6 HOURS NEEDED 04/26/2016 09/19/2017 Inactive Generic For:*XANAX 0.5 MG TABLET 05/16/2013 1:18:18 PM (Appended: Controlled substance eRx refill - RxReferenceNumber: [id number]) betamethasone dipropionate 0.05 % topical cream RxNorm: 745278 1 TOP UD 1-2 x per day PRN 01/16/2016 No Stop Date Active Kenalog 40 mg/mL suspension for injection RxNorm: 0834892 Milliliter(s) Inj 01/14/2016 01/14/2016 Inactive prednisone 20 mg tablet RxNorm: 868345 2 Tablet(s) PO daily 01/18/2016 Inactive alprazolam 0.5 mg tablet RxNorm: 890188 Tablet(s) PO Q6 as needed TAKE ONE-HALF TO ONE TABLET BY MOUTH EVERY 6 HOURS NEEDED 09/26/2015 04/25/2016 Inactive Generic For:*XANAX 0.5 MG TABLET 05/16/2013 1:18:18 PM (Appended: Controlled substance eRx refill - RxReferenceNumber: [id number]) azithromycin 250 mg tablet RxNorm: 873059 1 Tablet(s) PO UD 2 pills day one and 1 pill day 2-5 08/29/2015 09/02/2015 Inactive Keflex 500 mg capsule RxNorm: 310833 1 Capsule(s) PO TID 201402/09/2015 Inactive take a probiotic while on the abt Keflex 500 mg capsule RxNorm: 684809 1 Capsule(s) PO TID 201402/02/2015 Inactive take a probiotic while on the abt hydrocodone 5 mg-acetaminophen 325 mg tablet RxNorm: 593688 1 Tablet(s) PO Q6 PRN 01/27/2015 08/16/2015 Inactive Kenalog 40 mg/mL suspension for injection RxNorm: 4441398 2 Milliliter(s) Inj 05/02/2014 05/02/2014 Inactive Zithromax Z-Tomás 250 mg tablet RxNorm: 894764 1 Tablet(s) PO QPM 05/02/2014 05/06/2014 Inactive Rocephin 500 mg solution for injection RxNorm: 430610 1 Milliliter(s) Inj 05/02/2014 05/02/2014 Inactive metoprolol tartrate 25 mg tablet RxNorm: 126926 1/2 Tablet(s) PO BID TAKE ONE- HALF TABLET BY MOUTH TWICE DAILY 11/05/2013 02/03/2014 Inactive vilazodone 40 mg tablet RxNorm: 9183112 1 Tablet(s) PO daily 02/03/2014 Inactive Zithromax Z-Tomás 250 mg tablet RxNorm: 775510 Tablet(s) PO 07/1711/04/2013 Inactive Rocephin 500 mg Solution for Injection RxNorm: 3445655 Inj 10/201207/17/2013 Inactive Kenalog 40 mg/mL Susp for Injection RxNorm: 6968853 1 Milliliter(s) Inj 06/07/2013 06/07/2013 Inactive alprazolam 0.5 mg tablet RxNorm: 743118 1/2-1 Tablet(s) PO Q6 PRN 05/17/2013 No Stop Date Active alprazolam 0.5 mg tablet RxNorm: 261761 Tablet(s) PO TAKE ONE-HALF TO ONE TABLET BY MOUTH EVERY 6 HOURS NEEDED 05/17/2013 09/25/2015 Inactive Generic For:*XANAX 0.5 MG TABLET 05/16/2013 1:18:18 PM (Appended: Controlled substance eRx refill - RxReferenceNumber: [id number]) metoprolol tartrate 25 mg tablet RxNorm: 064832 Tablet(s) PO TAKE ONE-HALF TABLET BY MOUTH TWICE DAILY 02/12/20132013 Inactive metoprolol tartrate 25 mg tablet RxNorm: 750687 1/2 Tablet(s) PO BID 01/29/2013 05/28/2013 Inactive alprazolam 0.5 mg tablet RxNorm: 365183 1/2-1 Tablet(s) PO Q6 PRN 11/28/2012 05/17/2013 Inactive lisinopril 10 mg tablet RxNorm: 407535 1 Tablet(s) PO daily 01/28/2013 Inactive vilazodone 40 mg tablet RxNorm: 7953542 1 Tablet(s) PO daily 02/03/2013 Inactive metoprolol tartrate 25 mg tablet RxNorm: 338776 1/2 Tablet(s) PO BID 06/07/2012 10/04/2012 Inactive amoxicillin-potassium clavulanate 500 mg-125 mg tablet RxNorm: 165629 1 Tablet(s) PO TID 06/07/2012 06/13/2012 Inactive Ambien 5 mg tablet RxNorm: 324144 1 Tablet(s) PO HS PRN 05/0205/31/2012 Inactive lisinopril 10 mg tablet RxNorm: 665187 1 Tablet(s) PO daily 06/05/2012 Inactive pramipexole 0.5 mg Tab RxNorm: 142984 1/2 Tablet(s) PO QHS 01/29/2012 Inactive pramipexole 0.5 mg Tab RxNorm: 970329 1 Tablet(s) PO QHS 201110/31/2011 Inactive Fish Oil 1,200 mg-144 mg-216 mg Cap RxNorm: 1 Capsule(s) PO daily No Start Date Active potassium 99 mg Tab RxNorm: 1 Tablet(s) PO daily No Start Date 10/29/2012 Inactive betamethasone dipropionate 0.05 % topical cream RxNorm: 268088 1 TOP UD 1-2 x per day PRN No Start Date 01/15/2016 Inactive alprazolam 0.5 mg tablet RxNorm: 945115 1/2-1 Tablet(s) PO Q6 PRN No Start Date 11/27/2012 Inactive Ambien 5 mg tablet RxNorm: 590615 1 Tablet(s) PO HS PRN No Start Date 05/01/2012 Inactive calcium & magnesium carbonates 311 mg-232 mg Tab RxNorm: 033124 1 Tablet(s) PO BID No Start Date 10/29/2012 Inactive multivitamin Tab RxNorm: 1 Tablet(s) PO daily No Start Date 10/29/2012 Inactive vilazodone 40 mg tablet RxNorm: 7163535 1 Tablet(s) PO daily No Start Date 08/07/2012 Inactive Zithromax Z-Tomás 250 mg tablet RxNorm: 637181 Tablet(s) PO No Start Date 07/16/2013 Inactive Medication Administered Medication Codes Instructions Start Date Status Kenalog 40 mg/mL suspension for injection RxNorm: 9543753 Milliliter 11/24/2018 No longer Active Kenalog 40 mg/mL suspension for injection RxNorm: 8623007 Milliliter 09/26/2018 No longer Active Kenalog 40 mg/mL suspension for injection RxNorm: 4487380 Milliliter 01/14/2016 No longer Active Kenalog 40 mg/mL suspension for injection RxNorm: 0046822 2Milliliter 05/02/2014 No longer Active Rocephin 500 mg solution for injection RxNorm: 894691 1Milliliter 05/02/2014 No longer Active Rocephin 500 mg Solution for Injection RxNorm: 7812560 07/17/2013 No longer Active Kenalog 40 mg/mL Susp for Injection RxNorm: 1073964 1Milliliter 06/07/2013 No longer Active Immunizations Vaccine Codes Date Status Influenza CVX: 141 06/27/2018 completed Influenza CVX: 141 07/30/2016 completed Influenza CVX: 141 07/23/2015 completed Influenza CVX: 141 07/26/2013 completed Assessments Condition Codes Effective Dates Cough ICD-10: R05 ICD-9: 786.2 11/24/2018 Acute upper respiratory infection, unspecified ICD-10: J06.9 ICD-9: 465.9 11/24/2018 Essential (primary) hypertension ICD-10: I10 ICD-9: 401.1 10/31/2018 Other insomnia ICD-10: G47.09 ICD-9: 327.09 10/31/2018 Major depressive disorder, recurrent, moderate ICD-10: F33.1 ICD-9: 296.32 10/31/2018 Other allergic rhinitis ICD-10: J30.89 ICD-9: 477.8 09/26/2018 Acute laryngopharyngitis ICD-10: J06.0 ICD-9: 465.0 09/26/2018 [...] NEC ICD-9: 311 2013 ESSENTIAL HYPERTENSION SNOMED: 39313051 ICD-9: 401.9 11/05/2013 ACUTE BRONCHITIS ICD-9: 466.0 07/17/2013 COUGH ICD-9: 786.2 06/07/2013 OBESITY ICD-9: 278.00 10/30/2012 HYPERLIPIDEMIA ICD-9: 272.4 07/12/2012 Palpitations ICD-9: 785.1 06/07/2012 Changing mole ICD-9: 216.9 11/09/2011 Restless leg syndrome ICD-9: 333.94 10/27 Reason For Visit Reason For Visit Effective Dates Notes sinus congestion 11/24/2018 hypertension 10/31/2018 sinus congestion [...] Item Item Code Result Date Influenza A+B Rwh511 Influ A+B Negative 07/08/2016 Cbc With Differential [...] 29.7 pg 07/08/2016 Cbc With Differential Ord2 [place]% 6.8 % 07/08/2016 Cbc With Differential Ord2 [...] 1.19 K/ul 07/08/2016 Cbc With Differential Ord2 [place] ABS# 1.1 K/ul 07/08/2016 Cbc With Differential Ord2 Eos ABS# 0.0 K/ul 07/08/2016 Cbc With Differential Ord2 Baso ABS# 0.0 K/ul 07/08/2016 Comp Metabolic Epm006 NA 134 mEq/L 07/08/2016 Comp Metabolic Uum367 K 3.9 mEq/L 07/08/2016 Comp Metabolic Mxv447 CL 101 mEq/L 07/08/2016 Comp Metabolic Ixy733 CO2 27.0 mEq/L 07/08/2016 Comp Metabolic Rbe245 ANION GAP 10 07/08/2016 Comp Metabolic Gyi605 GLUCOSE 120 mg/dL 07/08/2016 Comp Metabolic Uid765 Creat 0.9 mg/dL 07/08/2016 Comp Metabolic Tht563 eGFR 71 ml/min/1.73m2 07/08/2016 Comp Metabolic Xkt458 BUN 16 mg/dL 07/08/2016 Comp Metabolic Ezp215 B/C Ratio 18.4 Ratio 07/08/2016 Comp Metabolic Sve886 CALCIUM 10.0 mg/dL 07/08/2016 Comp Metabolic Afr766 ALK PHOS 57 U/L 07/08/2016 Comp Metabolic Pqu548 AST(SGOT) 21 U/L 07/08/2016 Comp Metabolic Cve302 ALT(SGPT) 20 U/L 07/08/2016 Comp Metabolic Yfq732 BILI T 1.1 mg/dL 07/08/2016 Comp Metabolic Mlc074 ALBUMIN 3.9 g/dL 07/08/2016 Comp Metabolic Vhn715 TPRO 6.2 g/dL 07/08/2016 Comp Metabolic Cfj704 GLOB 2.4 g/dL 07/08/2016 Comp Metabolic Akv868 A/G Ratio 1.6 Ratio 07/08/2016 Comp Metabolic Xyy598 Osmo 271 mOsmo 07/08/2016 Comp Metabolic Jqz488 NA 130 mEq/L 08/29/2015 Comp Metabolic Kzr742 K 4.0 mEq/L 08/29/2015 Comp Metabolic Elp540 CL 99 mEq/L 08/29/2015 Comp Metabolic Yft107 CO2 21.0 mEq/L 08/29/2015 Comp Metabolic Cbs623 ANION GAP 14 08/29/2015 Comp Metabolic Yki713 GLUCOSE 105 mg/dL 08/29/2015 Comp Metabolic Ulc927 Creat 1.0 mg/dL 08/29/2015 Comp Metabolic Log261 eGFR 62 ml/min/1.73m2 08/29/2015 Comp Metabolic Kge061 BUN 8 mg/dL 08/29/2015 Comp Metabolic Nuw440 B/C Ratio 8.2 Ratio 08/29/2015 Comp Metabolic Ppu570 CALCIUM 9.9 mg/dL 08/29/2015 Comp Metabolic Udz978 ALK PHOS 93 U/L 08/29/2015 Comp Metabolic Hwn222 AST(SGOT) 16 U/L 08/29/2015 Comp Metabolic Xna962 ALT(SGPT) 22 U/L 08/29/2015 Comp Metabolic Eqm837 BILI T 0.6 mg/dL 08/29/2015 Comp Metabolic Bkw295 ALBUMIN 4.3 g/dL 08/29/2015 Comp Metabolic Udg922 TPRO 6.7 g/dL 08/29/2015 Comp Metabolic Skq233 GLOB 2.4 g/dL 08/29/2015 Comp Metabolic Kvh823 A/G Ratio 1.8 Ratio 08/29/2015 Comp Metabolic Khl807 Osmo 259 mOsmo 08/29/2015 Cbc With Differential [...] System Result Effective Dates Constitutional recent illness 11/24/2018 Constitutional No anorexia [...] nourished 07/17/2013 None Full Exam - General 1995 Constitutional general appearance Overall: well developed 07/17/2013 [...] General 1994 Ears/Nose/Throat otoscopic exam Tympanic membrane: a normal [...] 1995 Constitutional general appearance Overall: well developed 10/30/2012 None Full Exam - General 1995 Constitutional general appearance Overall: in no acute distress 10/30/2012 None Full Exam - General 1995 Constitutional general appearance Overall: well nourished 10/30/2012 None Full Exam - General 1994 Eyes pupils and irises Overall: pupils equal, round, reactive to light and accomodation 10/30/2012 None Full Exam - General 1995 Respiratory auscultation Overall: breath sounds clear bilaterally 10/30/2012 None Full Exam - General 1995 Respiratory respiratory effort/rhythm Overall: no retractions 10/30/2012 [...] intact 07/12/2012 None Full Exam - General 1995 Neurologic gait Overall: no ataxia, no unsteadiness [...] post surgical changes Full Exam - General 1994 Ears/Nose/Throat otoscopic [...] time 12/01/2011 None Full Exam - General 1995 Psychiatric mood and affect Mood: happy 12/01/2011 None Full Exam - General 1995 Psychiatric mood and affect Overall: normal mood and affect 12/01/2011 None Full Exam - General 1995 Eyes pupils and irises Overall: pupils equal, round, reactive to light and accomodation 12/01/2011 None Full Exam - General 1995 Constitutional general appearance Overall: well nourished 12/01/2011 None Full Exam - General 1995 Constitutional general appearance Overall: well developed 12/01/2011 None Full Exam - General 1994 Constitutional general appearance Overall: in no acute distress 12/01/2011 None Full Exam - General 1995 Constitutional general appearance Overall: well nourished 11/18/2011 None Full Exam - General 1995 Constitutional general appearance Overall: well developed 11/18/2011 None Full Exam - General 1995 Constitutional [...] rate 11/18/2011 None Full Exam - General 1995 Cardiovascular auscultation of heart Overall: normal heart sounds 11/18/2011 None Full Exam - General 1994 Cardiovascular auscultation of heart Overall: no murmurs 11/18/2011 None Full Exam - General 1995 Integument inspection of skin Location: back 11/18/2011 [...] accomodation 10/27/2011 None Full Exam - General 1995 Ears/Nose/Throat otoscopic exam Overall: tympanic membranes clear 10/27/2011 None Full Exam - General 1995 Ears/Nose/Throat otoscopic exam Overall: external auditory canals clear 10/27/2011 None Full Exam - General 1995 Ears/Nose/Throat oral cavity/pharynx/larynx Overall: oropharyngeal mucosa clear 10/27/2011 None Full Exam - General 1995 Ears/Nose/Throat oral cavity/pharynx/larynx Overall: no masses 10/27/2011 None Full Exam - General 1995 [...] benign 10/27/2011 None Full Exam - General 1995 Musculoskeletal head and neck Overall: head atraumatic 10/27/2011 None Procedures Procedure Codes Date TRIAMCINOLONE ACET INJ NOS CPT-4: J3301 11/24/2018 TRIAMCINOLONE ACET INJ NOS CPT-4: J3301 09/26/2018 THER/PROPH/DIAG INJ SC/IM CPT-4: 55005 09/26/2018 IMMUNIZATION ADMIN CPT -4: 50332 06/27/2018 FLU VAC NO PRSV 4 RAHUL 3 YRS+ Formatting Model/CDA Sections, Assigned to/Zonia Martinez CPT-4: 60082Gqueeat 06/27/2018 IMMUNIZATION ADMIN CPT -4: 82922 07/30/2016 IIV4 FLU VACC NO PRESERV ID SNOMED CT: 15192760 CPT-4: 19063 07/30/2016 TRIAMCINOLONE ACET INJ NOS CPT-4: J3301 01/14/2016 IMMUNIZATION ADMIN CPT -4: 51197 07/23/2015 IMMUNIZATION ADMIN EACH ADD CPT-4: 18557 07/23/2015 FLU VACC 4 RAHUL 3 YRS PLUS IM Formatting Model/CDA Sections, Assigned to SNOMED CT: 01124805 CPT-4: 74447Dpyafcj 07/23/2015 THER/PROPH/DIAG INJ SC/IM CPT-4: 91782 05/02/2014 ROCEPHIN, PER 250 MG CPT-4: J0696 05/02/2014 TRIAMCINOLONE ACET INJ NOS CPT-4: J3301 05/02/2014 ROCEPHIN, PER 250 MG CPT-4: J0696 07/17/2013 TRIAMCINOLONE ACET INJ NOS CPT-4: J3301 06/07/2013 BIOPSY SKIN LESION CPT -4: 71482 11/09/2011 Vital Signs Date Vital 11/24/2018 Blood Pressure 1: 122/70 Code : 8480-6 BMI: 32.7 Code : 79879-0 Heart Rate 1 : 85 bpm Height: 5'8" SpO2: 98% Temperature: 36.6 (C) / 97.9 (F) Weight: 215 lbs 10/31/2018 Blood Pressure 1: 126/78 Code : 8480-6 BMI: 32.7 Code : 71974-2 Heart Rate 1 : 75 bpm Height: 5'8" SpO2: 97% Weight: 215 lbs 09/26/2018 Blood Pressure 1: 130/78 Code : 8480-6 BMI: 32.4 Code : 63426-3 Heart Rate 1 : 67 bpm Height: 5'8" SpO2: 97% Temperature: 36.5 (C) / 97.7 (F) Weight: 213 lbs 06/27/2018 Blood Pressure 1: 132/78 Code : 8480-6 BMI: 33.9 Code : 78994-1 Heart Rate 1 : 66 bpm Height: 5'8" SpO2: 95% Weight: 223 lbs 05/11/2018 Blood Pressure 1: 140/90 Code : 8480-6 BMI: 33.8 Code : 42539-5 Heart Rate 1 : 74 bpm Height: 5'8" SpO2: 98% Weight: 222 lbs 03/08/2017 Blood Pressure 1: 144/86 Code : 8480-6 BMI: 31.2 Code : 75544-7 Heart Rate 1 : 70 bpm Height: 5'8" SpO2: 98% Weight: 205 lbs 09/06/2016 Blood Pressure 1: 128/86 Code : 8480-6 BMI: 28.4 Code : 49328-6 Heart Rate 1 : 86 bpm Height: 5'8" SpO2: 96% Weight: 187 lbs 07/08/2016 Blood Pressure 1: 120/60 Code : 8480-6 BMI: 28.4 Code : 14291-3 Height: 5'8" Temperature: 37.8 (C) / 100.1 (F) Weight: 187 lbs 01/14/2016 Blood Pressure 1: 152/86 Code : 8480-6 BMI: 30.4 Code : 01150-3 Heart Rate 1 : 83 bpm Height: 5'8" SpO2: 97% Weight: 200 lbs 11/17/2015 Blood Pressure 1: 142/90 Code : 8480-6 BMI: 33.9 Code : 77211-0 Heart Rate 1 : 75 bpm Height: 5'8" SpO2: 97% Weight: 223 lbs 08/29/2015 BMI: 35.6 Code: 88101-8 Heart Rate 1: 94 bpm Height: 5'8" SpO2: 98% Weight: 234 lbs 01/27/2015 Blood Pressure 1: 140/94 Code : 8480-6 Heart Rate 1: 88 bpm Height: 5'8" SpO2: 98% Weight: 08/05/2014 Blood Pressure 1: 138/82 Code : 8480-6 BMI: 33.6 Code : 14802-9 Heart Rate 1 : 76 bpm Height: 5'8" Weight: 221 lbs 05/02/2014 Blood Pressure 1: 142/82 Code : 8480-6 Heart Rate 1: 84 bpm Height: SpO2: 100% Temperature: 37.1 (C) / 98.7 (F) Weight: 02/04/2014 Blood Pressure 1: 108/78 Code : 8480-6 BMI: 36.2 Code : 59080-8 Heart Rate 1 : 60 bpm Height: 5'8" Weight: 238 lbs 11/05/2013 Blood Pressure 1: 134/74 Code : 8480-6 BMI: 35.9 Code : 61648-6 Heart Rate 1 : 68 bpm Height: 5'8" Weight: 236 lbs 07/17/2013 Blood Pressure 1: 136/88 Code : 8480-6 BMI: 35.9 Code : 60424-8 Heart Rate 1 : 72 bpm Height: 5'8" Temperature: 36.4 (C) / 97.6 (F) Weight: 236 lbs 06/07/2013 Blood Pressure 1: 134/92 Code : 8480-6 Heart Rate 1: 72 bpm Temperature: 37.0 (C) / 98.6 (F) Weight: 04/30/2013 Blood Pressure 1: 148/78 Code : 8480-6 BMI: 35.1 Code : 93433-3 Heart Rate 1 : 64 bpm Height: 5'8" Weight: 231 lbs 01/29/2013 Blood Pressure 1: 128/84 Code : 8480-6 BMI: 34.4 Code : 26255-6 Heart Rate 1 : 76 bpm Height: 5'8" Weight: 226 lbs 10/30/2012 Blood Pressure 1: 118/72 Code : 8480-6 BMI: 33.5 Code : 50849-1 Heart Rate 1 : 64 bpm Height: [...] Code : 8480-6 BMI: 29.5 Code : 49575-0 Heart Rate 1 : 72 bpm Height: [...] Code : 8480-6 BMI: 29.3 Code : 39335-4 Heart Rate 1 : 76 bpm Height: 5'8" Respiratory Rate: 16 bpm Weight: 193 lbs Functional Status No Functional Status data History of Present Illness Symptom Name Status Result Effective Date Notes Onset and Resolution sudden in onset 11/24/2018 [...] data Encounters Encounter Performer Location Codes Date ([id number]) [id number] EST. PATIENT, LEVEL III Diagnosis: Cough[ICD10: R05] Diagnosis: Acute upper respiratory infection, unspecified[ICD10: J06.9] Che Olivares MD, [facility] CPT-4: 58257 11/24/2018 ([id number]) 10055 EST. PATIENT, LEVEL III Diagnosis: Essential (primary) hypertension[ICD10: I10] Diagnosis: Major depressive disorder, recurrent, moderate[ICD10: F33.1] Diagnosis: Other insomnia[ICD10: G47.09] Verona Olivares MD, [facility] CPT- 4: 00711 10/31/2018 01082 EST. PATIENT, LEVEL III Diagnosis: Acute laryngopharyngitis[ICD10: J06.0] Diagnosis: Other allergic rhinitis[ICD10: J30.89] Solange lOivares MD, [facility] CPT-4: 86503 09/26/2018 ([id number]) 22942 EST. PATIENT, LEVEL III Diagnosis: Essential (primary) hypertension[ICD10: I10] Diagnosis: Major depressive disorder, recurrent, moderate[ICD10: F33.1] Diagnosis: Generalized anxiety disorder[ICD10: F41.1] Diagnosis: Encounter for immunization[ICD10: Z23] Verona Olivares MD, [facility] CPT-4: 53272 06/27/2018 ([id number]) 00054 EST. PATIENT, LEVEL IV Diagnosis: Essential (primary) hypertension[ICD10: I10] Diagnosis: Major depressive disorder, recurrent, moderate[ICD10: F33.1] Diagnosis: Generalized anxiety disorder[ICD10: F41.1] Verona Olivares MD, [facility] CPT-4: 05831 05/11/2018 ([id number]) 12163 EST. PATIENT, LEVEL III Diagnosis: Acute recurrent maxillary sinusitis[ICD10: J01.01] Diagnosis: Other hallucinations[ICD10: R44.2] Diagnosis: Allergic rhinitis due to pollen[ICD10: J30.1] Che Olivares MD, [facility] CPT-4: 99734 03/08/2017 ([id number]) 87683 EST. PATIENT, LEVEL II Diagnosis: Cellulitis of right upper limb[ICD10: L03.113] Che Olivares MD, [facility] CPT-4: 75912 09/06/2016 ([id number]) 35968 EST. PATIENT, LEVEL III Diagnosis: Cough[ICD10: R05] Diagnosis: Fever, unspecified[ICD10: R50.9] Diagnosis: Pain, unspecified[ICD10: R52] Che Olivares MD, [facility] CPT-4: 07808 07/08/2016 82212 EST. PATIENT, LEVEL IV Diagnosis: Rash and other nonspecific skin eruption[ICD10: R21] Solange Olivares MD, [facility] CPT-4: 66253 01/14/2016 ([id number]) 34151 EST. PATIENT, LEVEL III Diagnosis: Pain in left shoulder[ICD10: M25.512] Diagnosis: Pain in right shoulder[ICD10: M25.511] Diagnosis: Bicipital tendinitis, left shoulder[ICD10: M75.22] Che Olivares MD, [facility] CPT-4: 82888 11/17/2015 93850 EST. PATIENT, LEVEL IV Diagnosis: Epigastric pain[ICD10: R10.13] Diagnosis: Acute upper respiratory infection, unspecified[ICD10: J06.9] Solange Olivares MD , [facility] CPT-4: 72325 08/29/2015 ([id number]) 13430 EST. PATIENT, LEVEL III Diagnosis: Left knee pain[ICD9: 719.46] Diagnosis: ACUTE URI[ICD9: 465.9] Diagnosis: ALLERGIC RHINITIS[ICD9: 477.9] Che Olivares MD, [facility] CPT-4: 72958 01/27/2015 ([id number]) 83532 EST. PATIENT, LEVEL III Diagnosis: Elevated blood pressure (not hypertension)[ICD9: 796.2] Diagnosis: Biceps tendinitis[ICD9: 726.12] Diagnosis: Wrist pain, acute[ICD9: 719.43] Verona Olivares MD, [facility] CPT- 4: 33487 08/05/2014 ([id number]) 86966 EST. PATIENT, LEVEL III Diagnosis: Acute maxillary sinusitis[ICD9: 461.0] Verona Olivares MD, [facility] CPT-4: 06617 05/02/2014 ([id number]) 85034 EST. PATIENT, LEVEL III Diagnosis: INSOMNIA IN OTHER DIS[ICD9: 327.01] Verona Olivares MD, [facility] CPT-4: 45988 02/04/2014 ([id number]) 81223 EST. PATIENT, LEVEL III Diagnosis: ESSENTIAL HYPERTENSION[SNOMED: 00793483] Diagnosis: DEPRESSIVE DISORDER NEC[ICD9: 311] Verona Olivares MD, [facility] CPT-4: 61430 11/05/2013 ([id number]) 36252 EST. PATIENT, LEVEL III Diagnosis: ACUTE BRONCHITIS[ICD9: 466.0] Che Olivares MD, [facility] CPT-4: 46889 07/17/2013 ([id number]) 27105 EST. PATIENT, LEVEL III Diagnosis: ACUTE URI[ICD9: 465.9] Diagnosis: COUGH[ICD9: 786.2] Diagnosis: ALLERGIC RHINITIS[ICD9: 477.9] Che Olivares MD, [facility] CPT-4: 21082 06/07/2013 ([id number]) 82283 EST. PATIENT, LEVEL III Diagnosis: ESSENTIAL HYPERTENSION[SNOMED: 28846870] Diagnosis: DEPRESSIVE DISORDER NEC[ICD9: 311] Verona Olivares MD, [facility] CPT-4: 29154 04/30/2013 ([id number]) 15113 EST. PATIENT, LEVEL III Diagnosis: ESSENTIAL HYPERTENSION[SNOMED: 75941436] Diagnosis: DEPRESSIVE DISORDER NEC[ICD9: 311] Verona Olivares MD, [facility] CPT-4: 17985 01/29/2013 ([id number]) 42332 EST. PATIENT, LEVEL IV Diagnosis: ESSENTIAL HYPERTENSION[SNOMED: 65765692] Diagnosis: DEPRESSIVE DISORDER NEC[ICD9: 311] Diagnosis: OBESITY[ICD9: 278.00] Verona Olivares MD, [facility] CPT-4: 72185 10/30/2012 ([id number]) 36208 EST. PATIENT, LEVEL III Diagnosis: ESSENTIAL HYPERTENSION[SNOMED: 02319510] Diagnosis: HYPERLIPIDEMIA[ICD9: 272.4] Diagnosis: DEPRESSIVE DISORDER NEC[ICD9: 311] Verona Olivares MD, [facility] CPT-4: 13958 07/12/2012 ([id number]) 07012 EST. PATIENT, LEVEL IV Diagnosis: ESSENTIAL HYPERTENSION[SNOMED: 39158685] Diagnosis: DEPRESSIVE DISORDER NEC[ICD9: 311] Diagnosis: Palpitations[ICD9: 785.1] Diagnosis: Acute maxillary sinusitis[ICD9: 461.0] Verona Olivares MD, [facility] CPT-4: 23792 06/07/2012 99687 EST. PATIENT, LEVEL IV Diagnosis: ESSENTIAL HYPERTENSION[SNOMED: 23133673] Diagnosis: COUGH[ICD9: 786.2] Diagnosis: Upper respiratory infection[ICD9: 465.9] [facility] CPT-4: 64112 12/01/2011 ([id number]) 14483 EST. PATIENT, LEVEL III Diagnosis: ESSENTIAL HYPERTENSION[SNOMED: 98581254] Verona Olivares MD, [facility] CPT-4: 32891 11/18/2011 ([id number]) 36973 EST. PATIENT, LEVEL III Diagnosis: ESSENTIAL HYPERTENSION[SNOMED: 32684438] Verona Olivares MD, [facility] CPT-4: 52962 11/09/2011 ([id number]) OFFICE VISIT, NEW - LEVEL 4 Diagnosis: Restless leg syndrome[ICD9: 333.94] Diagnosis: INSOMNIA IN OTHER DIS[ICD9: 327.01] Diagnosis: Elevated blood pressure (not hypertension)[ICD9: 796.2] [facility] CPT-4: 26027 10/27/2011 Plan of Care Planned Activity Notes Codes Status Date Visit Plan: URI-cough - Pt advised to [...] patient's pharmacy. 11/24/2018 Appointment: Che Garcia WPtel: [address] [place], [place] [phone] (15 min) Moderate 11/24/2018 Patient Education: Patient [...] current medications. 10/31/2018 Appointment: Verona Olivares WPtel: [facility] (15 min) Moderate 10/31/2018 Patient Education: Patient [...] allergy spray. 09/26/2018 App[facility]ment: [phone] Portal Appointment Requests 09/26/2018 Appointment: Solange Snyder [facility]Ptel[facility] (15 min) Moderate 09/26/2018 Patient Education: Patient [...] 20mg nightly 06/27/2018 Appointment: Verona Olivares WPtel: [phone] [facility] (15 min) Moderate 06/27/2018 Patient Education: Patient Medication Summary Completed 06/27/2018 Patient Education: Depression Completed 06/27/2018 Appointment: Verona Olivares WPtel: [phone] [facility] (15 min) Moderate 06/07/2018 Visit Plan: [...] daily. 05/11/2018 Appointment: Verona Olivares WPtel: [address] [facility] [place] (15 min) Moderate 05/11/2018 Patient Education: Patient [...] not resolve 03/08/2017 Appointment: Che Garcia WPtel: [address] [place], [place] [phone] (15 min) Moderate 03/08/2017 Patient Education: Patient [...] of plan. 09/06/2016 Appointment: Che Garcia WPtel: [address] [place], [place] [phone] (15 min) Moderate 09/06/2016 Patient Education: Patient Medication Summary Completed 09/06/2016 Appointment: Injection 07/30/2016 Patient Education: Patient Medication Summary Completed 07/30/2016 Visit Plan: Ebkvo-wnicn-aoex aches-patient sent for stat labs and influenza swab-will treat as indicated-instructed patient we will call her with the results of her testings-tylenol/motrin as needed for fever, increase po fluids. Patient verbalized understanding of plan. 07/08/2016 Appointment: Che Garcia WPtel: [phone] (15 min) Moderate 07/08/2016 Patient Education: Patient [...] completely resolve. 01/27/2015 Appointment: Che Garcia WPtel: [address] [place], [place] [phone] [facility] 01/27/2015 Patient Education: Patient Medication Summary Completed [...] blood pressures. 08/05/2014 Appointment: Verona Olivares [facility]Ptel[facility] [place] Follow up 08/05/2014 Patient Education: Patient Medication [...] for sleep. 02/04/2014 Appointment: Verona Olivares WPtel[facility] [place] Follow up 02/04/2014 Patient Education: Patient Medication [...] the antidepressant. 11/05/2013 Appointment: Verona Olivares WPtel[facility] [place] Follow up 11/05/2013 Patient Education: Patient Medication Summary Completed 11/05/2013 Patient Education: Hypertension Completed 11/05/2013 Appointment: Verona Olivares WPtel[facility] [place] Follow up 10/18/2013 Appointment: Verona Olivares WPtel: [address] [place], [place] [phone] Follow up 08/07/2013 Visit Plan: Bronchitis - acute case of bronchitis identified. Pt has been given antibiotics, breathing treatments as appropriate, and pt has been instructed to call if symptoms are not improved, or if symptoms acutely worsen. RX sent to patient's pharmacy. 07/17/2013 Appointment: Che Garcia WPtel: [address] [place] [address] Sick 07/17/2013 Patient Education: Patient Medication Summary [...] allergy spray. 06/07/2013 Appointment: Che Garcia WPtel: [address] [place], [place] [phone] [place] [address] 06/07/2013 Patient Education: Patient Medication Summary Completed [...] medications. 04/30/2013 Appointment: [facility]Ptel[phone] Follow up 04/30/2013 Patient Education: Patient Medication [...] medications. 01/29/2013 Appointment: [phone] Follow up 01/29/2013 Patient Education: Patient [...] options. 10/30/2012 Appointment: [facility]Ptel[phone] Follow up 10/30/2012 Patient Education: Patient [...] current medications. 07/12/2012 Appointment: Verona Olivares WPtel: [facility] Follow up 07/12/2012 Patient Education: Patient Medication [...] above medications. 06/07/2012 Appointment: Verona Olivares WPtel[facility] [facility] 06/07/2012 Patient Education: Patient Medication Summary Completed 06/07/2012 Patient Education: High Blood Pressure: Essential Hypertension Completed 2011 Appointment: Verona Olivares WPtel: [facility] Other 05/29/2012 Visit Plan: Hypertension - well [...] be used for cough 12/01/2011 Appointment: Verona Olviares WPtel: [facility] Follow up 12/01/2011 Patient Education: Patient Medication [...] change today. 11/18/2011 Appointment: Verona Olivares WPtel: [facility] Other 11/18/2011 Patient Education: Patient Medication Summary [...] conerns. 11/09/2011 Appointment: [facility]Ptel[phone] [facility] 11/09/2011 Patient Education: Patient [...] diet. 10/27/2011 Appointment: [facility]ares [facility]Ptel[phone] [place] New Patient 10/27/2011 Patient Education: Patient Medication [...] pt to be used for cough . Sgznh-psiud-amkg aches-patient sent for stat labs and influenza swab-will treat as indicated-instructed patient we will call her with the results of her testings-tylenol/motrin as needed for fever, increase po fluids. Patient verbalized understanding of plan. . Hypertension [...] situational exposure. No change in current medications. CONTINUE ANTI INFLAMMATORIES DIRECTED TAKE PAIN MEDICATION [...] to call if symptoms are not improved. extended release melatonin you can take up [...] no medication change today. . Hypertension - uncontrolled - the patient's [...]
[2019-03-02] MEDS ORDERED: TIMOLOL MALEATE 0.5% 5 ML (TIMOPTIC) BTL OU PRN (10:30)
[2019-03-02] MEDS ORDERED: POVIDONE (BETADINE) OPHTH SOLN 5% 30 ML OP ONE (10:30)
[2019-03-02] MEDS ORDERED: MOXIFLOXACIN OPHTH SOLN 5 MG/ML 0.3 ML SYRINGE OP ONE (10:30)
[2019-03-02] MEDS ORDERED: LIDOCAINE PF 1% 2 ML AMP IR PRN (10:30)
--- OUTSIDE RECORDS SUMMARY | 2019-03-02 10:30 | XMS REPORT | CCD ---
Author Author Verona Olivares Organization Verona Olivares MD, [facility] Address [address] [place] [address] Phone Care Team Providers Care Relief Man Name Role Phone Verona Olivares PP Unavailable CCM Unavailable Summary Purpose Interface Exchange Insurance Providers Payer name Policy type / Coverage type Covered green party ID Effective Begin Date Effective End Date [facility] [id number] Unknown Family history Mother Diagnosis Age At [...] Currently employed 10/27/[address]: 598236842 Never smoker 10/27/[address]: 964039085 Never drinks alcohol 10/27/2011 Has the patient [...] Start Date Stop Date Status Fill Instructions alprazolam 0.5 mg tablet RxNorm: 623031 Tablet(s) TAKE ONE-HALF TO ONE TABLET BY MOUTH EVERY 8 HOURS NEEDED 01/16/2019 01/30/2019 Active prednisone 20 mg tablet RxNorm: 282542 2 Tablet(s) PO daily 12/10/2018 Inactive Augmentin 875 mg-125 mg tablet RxNorm: 612111 1 Tablet(s) PO BID 12/11/2018 12/17/2018 Inactive Augmentin 875 mg-125 mg tablet RxNorm: 176042 1 Tablet(s) PO BID 12/11/2018 12/10/2018 Inactive prednisone 20 mg tablet RxNorm: 333044 2 Tablet(s) PO daily 12/13/2018 Inactive promethazine 6.25 mg-codeine 10 mg/5 mL syrup RxNorm: 959170 5-10 Milliliter(s) PO Q6 PRN 11/24/2018 No Stop Date Active Zithromax Z-Tomás 250 mg tablet RxNorm: 259179 1 Tablet(s) PO UD 11/24/2018 11/28/2018 Inactive Kenalog 40 mg/mL suspension for injection RxNorm: 2076766 Milliliter(s) Inj 11/24/2018 11/24/2018 Inactive lisinopril 10 mg tablet RxNorm: 546959 1 Tablet(s) PO daily 04/12/2019 Active doxepin 10 mg capsule RxNorm: 7161826 1 Capsule(s) PO QHS as needed insomnia 10/31/2018 01/28/2019 Active Kenalog 40 mg/mL suspension for injection RxNorm: 0393828 Milliliter(s) Inj 09/26/2018 09/26/2018 Inactive Augmentin 875 mg-125 mg tablet RxNorm: 097033 1 Tablet(s) PO BID 09/26/2018 10/05/2018 Inactive escitalopram 20 mg tablet RxNorm: 720750 1 Tablet(s) PO QPM 08/201801/22/2019 Active lisinopril 10 mg tablet RxNorm: 616312 1 Tablet(s) PO daily 02/201811/13/2018 Inactive escitalopram 10 mg tablet RxNorm: 178631 1 Tablet(s) PO QPM 06/26/2018 Inactive lisinopril 10 mg tablet RxNorm: 373063 1 Tablet(s) PO daily 06/20/2018 Inactive alprazolam 0.5 mg tablet RxNorm: 866359 TAKE ONE-HALF TO ONE TABLET BY MOUTH EVERY 6 HOURS NEEDED 09/20/20172016 Inactive Augmentin 875 mg-125 mg tablet RxNorm: 538534 1 Tablet(s) PO BID 03/08/2017 03/17/2017 Inactive alprazolam 0.5 mg tablet RxNorm: 278877 Tablet(s) PO Q6 as needed TAKE ONE-HALF TO ONE TABLET BY MOUTH EVERY 6 HOURS NEEDED 12/24/2016 01/22/2017 Inactive triamcinolone acetonide 0.5 % topical cream RxNorm: 8308424 1 Application TOP BID 09/06/2016 09/15/2016 Inactive Levaquin 500 mg tablet RxNorm: 705621 1 Tablet(s) PO daily 07/14/2016 Inactive please call her when ready Levaquin 500 mg tablet RxNorm: 621035 1 Tablet(s) PO daily 07/07/2016 Inactive alprazolam 0.5 mg tablet RxNorm: 276660 Tablet(s) PO Q6 as needed TAKE ONE-HALF TO ONE TABLET BY MOUTH EVERY 6 HOURS NEEDED 04/26/2016 12/23/2016 Inactive Generic For:*XANAX 0.5 MG TABLET 05/16/2013 1:18:18 PM (Appended: Controlled substance eRx refill - RxReferenceNumber: [id number]) alprazolam 0.5 mg tablet RxNorm: 855511 Tablet(s) PO Q6 as needed TAKE ONE-HALF TO ONE TABLET BY MOUTH EVERY 6 HOURS NEEDED 04/26/2016 09/19/2017 Inactive Generic For:*XANAX 0.5 MG TABLET 05/16/2013 1:18:18 PM (Appended: Controlled substance eRx refill - RxReferenceNumber: [id number]) betamethasone dipropionate 0.05 % topical cream RxNorm: 634339 1 TOP UD 1-2 x per day PRN 01/16/2016 No Stop Date Active Kenalog 40 mg/mL suspension for injection RxNorm: 3695647 Milliliter(s) Inj 01/14/2016 01/14/2016 Inactive prednisone 20 mg tablet RxNorm: 286459 2 Tablet(s) PO daily 01/18/2016 Inactive alprazolam 0.5 mg tablet RxNorm: 017914 Tablet(s) PO Q6 as needed TAKE ONE-HALF TO ONE TABLET BY MOUTH EVERY 6 HOURS NEEDED 09/26/2015 04/25/2016 Inactive Generic For:*XANAX 0.5 MG TABLET 05/16/2013 1:18:18 PM (Appended: Controlled substance eRx refill - RxReferenceNumber: [id number]) azithromycin 250 mg tablet RxNorm: 266847 1 Tablet(s) PO UD 2 pills day one and 1 pill day 2-5 08/29/2015 09/02/2015 Inactive Keflex 500 mg capsule RxNorm: 828076 1 Capsule(s) PO TID 201402/09/2015 Inactive take a probiotic while on the abt Keflex 500 mg capsule RxNorm: 401384 1 Capsule(s) PO TID 201402/02/2015 Inactive take a probiotic while on the abt hydrocodone 5 mg-acetaminophen 325 mg tablet RxNorm: 581075 1 Tablet(s) PO Q6 PRN 01/27/2015 08/16/2015 Inactive Kenalog 40 mg/mL suspension for injection RxNorm: 6436661 2 Milliliter(s) Inj 05/02/2014 05/02/2014 Inactive Zithromax Z-Tomás 250 mg tablet RxNorm: 321674 1 Tablet(s) PO QPM 05/02/2014 05/06/2014 Inactive Rocephin 500 mg solution for injection RxNorm: 869006 1 Milliliter(s) Inj 05/02/2014 05/02/2014 Inactive metoprolol tartrate 25 mg tablet RxNorm: 471201 1/2 Tablet(s) PO BID TAKE ONE- HALF TABLET BY MOUTH TWICE DAILY 11/05/2013 02/03/2014 Inactive vilazodone 40 mg tablet RxNorm: 6690353 1 Tablet(s) PO daily 02/03/2014 Inactive Zithromax Z-Tomás 250 mg tablet RxNorm: 822178 Tablet(s) PO 07/1711/04/2013 Inactive Rocephin 500 mg Solution for Injection RxNorm: 1249339 Inj 10/201207/17/2013 Inactive Kenalog 40 mg/mL Susp for Injection RxNorm: 4328350 1 Milliliter(s) Inj 06/07/2013 06/07/2013 Inactive alprazolam 0.5 mg tablet RxNorm: 941924 1/2-1 Tablet(s) PO Q6 PRN 05/17/2013 No Stop Date Active alprazolam 0.5 mg tablet RxNorm: 934271 Tablet(s) PO TAKE ONE-HALF TO ONE TABLET BY MOUTH EVERY 6 HOURS NEEDED 05/17/2013 09/25/2015 Inactive Generic For:*XANAX 0.5 MG TABLET 05/16/2013 1:18:18 PM (Appended: Controlled substance eRx refill - RxReferenceNumber: [id number]) metoprolol tartrate 25 mg tablet RxNorm: 511723 Tablet(s) PO TAKE ONE-HALF TABLET BY MOUTH TWICE DAILY 02/12/20132013 Inactive metoprolol tartrate 25 mg tablet RxNorm: 599508 1/2 Tablet(s) PO BID 01/29/2013 05/28/2013 Inactive alprazolam 0.5 mg tablet RxNorm: 673585 1/2-1 Tablet(s) PO Q6 PRN 11/28/2012 05/17/2013 Inactive lisinopril 10 mg tablet RxNorm: 086286 1 Tablet(s) PO daily 01/28/2013 Inactive vilazodone 40 mg tablet RxNorm: 4644390 1 Tablet(s) PO daily 02/03/2013 Inactive metoprolol tartrate 25 mg tablet RxNorm: 614420 1/2 Tablet(s) PO BID 06/07/2012 10/04/2012 Inactive amoxicillin-potassium clavulanate 500 mg-125 mg tablet RxNorm: 852520 1 Tablet(s) PO TID 06/07/2012 06/13/2012 Inactive Ambien 5 mg tablet RxNorm: 123480 1 Tablet(s) PO HS PRN 05/0205/31/2012 Inactive lisinopril 10 mg tablet RxNorm: 201027 1 Tablet(s) PO daily 06/05/2012 Inactive pramipexole 0.5 mg Tab RxNorm: 692136 1/2 Tablet(s) PO QHS 01/29/2012 Inactive pramipexole 0.5 mg Tab RxNorm: 035867 1 Tablet(s) PO QHS 201110/31/2011 Inactive Fish Oil 1,200 mg-144 mg-216 mg Cap RxNorm: 1 Capsule(s) PO daily No Start Date Active potassium 99 mg Tab RxNorm: 1 Tablet(s) PO daily No Start Date 10/29/2012 Inactive betamethasone dipropionate 0.05 % topical cream RxNorm: 835823 1 TOP UD 1-2 x per day PRN No Start Date 01/15/2016 Inactive alprazolam 0.5 mg tablet RxNorm: 947497 1/2-1 Tablet(s) PO Q6 PRN No Start Date 11/27/2012 Inactive Ambien 5 mg tablet RxNorm: 608909 1 Tablet(s) PO HS PRN No Start Date 05/01/2012 Inactive calcium & magnesium carbonates 311 mg-232 mg Tab RxNorm: 203518 1 Tablet(s) PO BID No Start Date 10/29/2012 Inactive multivitamin Tab RxNorm: 1 Tablet(s) PO daily No Start Date 10/29/2012 Inactive vilazodone 40 mg tablet RxNorm: 8639646 1 Tablet(s) PO daily No Start Date 08/07/2012 Inactive Zithromax Z-Tomás 250 mg tablet RxNorm: 288997 Tablet(s) PO No Start Date 07/16/2013 Inactive Medication Administered Medication Codes Instructions Start Date Status Kenalog 40 mg/mL suspension for injection RxNorm: 4789261 Milliliter 11/24/2018 No longer Active Kenalog 40 mg/mL suspension for injection RxNorm: 6193081 Milliliter 09/26/2018 No longer Active Kenalog 40 mg/mL suspension for injection RxNorm: 7214703 Milliliter 01/14/2016 No longer Active Kenalog 40 mg/mL suspension for injection RxNorm: 0787460 2Milliliter 05/02/2014 No longer Active Rocephin 500 mg solution for injection RxNorm: 278041 1Milliliter 05/02/2014 No longer Active Rocephin 500 mg Solution for Injection RxNorm: 0595226 07/17/2013 No longer Active Kenalog 40 mg/mL Susp for Injection RxNorm: 7443776 1Milliliter 06/07/2013 No longer Active Immunizations Vaccine [...] NEC ICD-9: 311 2013 ESSENTIAL HYPERTENSION SNOMED: 92450050 ICD-9: 401.9 11/05/2013 ACUTE BRONCHITIS ICD-9: 466.0 [...] Item Item Code Result Date Influenza A+B Rgc660 Influ A+B Negative 07/08/2016 Cbc With Differential [...] 29.7 pg 07/08/2016 Cbc With Differential Ord2 Dixon% 6.8 % 07/08/2016 Cbc With Differential Ord2 [...] 1.19 K/ul 07/08/2016 Cbc With Differential Ord2 Dixon ABS# 1.1 K/ul 07/08/2016 Cbc With Differential Ord2 Eos ABS# 0.0 K/ul 07/08/2016 Cbc With Differential Ord2 Baso ABS# 0.0 K/ul 07/08/2016 Comp Metabolic Mea180 NA 134 mEq/L 07/08/2016 Comp Metabolic Enq522 K 3.9 mEq/L 07/08/2016 Comp Metabolic Zvz389 CL 101 mEq/L 07/08/2016 Comp Metabolic Ant693 CO2 27.0 mEq/L 07/08/2016 Comp Metabolic Yzw769 ANION GAP 10 07/08/2016 Comp Metabolic Gqn707 GLUCOSE 120 mg/dL 07/08/2016 Comp Metabolic Ymm847 Creat 0.9 mg/dL 07/08/2016 Comp Metabolic Zxi020 eGFR 71 ml/min/1.73m2 07/08/2016 Comp Metabolic Wlh767 BUN 16 mg/dL 07/08/2016 Comp Metabolic Cze073 B/C Ratio 18.4 Ratio 07/08/2016 Comp Metabolic Lsw968 CALCIUM 10.0 mg/dL 07/08/2016 Comp Metabolic Lio294 ALK PHOS 57 U/L 07/08/2016 Comp Metabolic Rsu936 AST(SGOT) 21 U/L 07/08/2016 Comp Metabolic Qpp934 ALT(SGPT) 20 U/L 07/08/2016 Comp Metabolic Szd200 BILI T 1.1 mg/dL 07/08/2016 Comp Metabolic Gqj276 ALBUMIN 3.9 g/dL 07/08/2016 Comp Metabolic Sqq291 TPRO 6.2 g/dL 07/08/2016 Comp Metabolic Tct651 GLOB 2.4 g/dL 07/08/2016 Comp Metabolic Qoh826 A/G Ratio 1.6 Ratio 07/08/2016 Comp Metabolic Onz609 Osmo 271 mOsmo 07/08/2016 Comp Metabolic Sks306 NA 130 mEq/L 08/29/2015 Comp Metabolic Rew450 K 4.0 mEq/L 08/29/2015 Comp Metabolic Eix293 CL 99 mEq/L 08/29/2015 Comp Metabolic Nee208 CO2 21.0 mEq/L 08/29/2015 Comp Metabolic Rih872 ANION GAP 14 08/29/2015 Comp Metabolic Mbf250 GLUCOSE 105 mg/dL 08/29/2015 Comp Metabolic Zbg546 Creat 1.0 mg/dL 08/29/2015 Comp Metabolic Djp996 eGFR 62 ml/min/1.73m2 08/29/2015 Comp Metabolic Izu158 BUN 8 mg/dL 08/29/2015 Comp Metabolic Skt663 B/C Ratio 8.2 Ratio 08/29/2015 Comp Metabolic Ctf487 CALCIUM 9.9 mg/dL 08/29/2015 Comp Metabolic Ycm173 ALK PHOS 93 U/L 08/29/2015 Comp Metabolic Ypj659 AST(SGOT) 16 U/L 08/29/2015 Comp Metabolic Afz066 ALT(SGPT) 22 U/L 08/29/2015 Comp Metabolic Xli384 BILI T 0.6 mg/dL 08/29/2015 Comp Metabolic Qwo374 ALBUMIN 4.3 g/dL 08/29/2015 Comp Metabolic Zxu339 TPRO 6.7 g/dL 08/29/2015 Comp Metabolic Sre714 GLOB 2.4 g/dL 08/29/2015 Comp Metabolic Skr785 A/G Ratio 1.8 Ratio 08/29/2015 Comp Metabolic Wqr415 Osmo 259 mOsmo 08/29/2015 Cbc With Differential [...] intact 11/05/2013 None Full Exam - General 1995 Neurologic gait Overall: no ataxia, no unsteadiness 11/05/2013 None Full Exam - General 1994 Neurologic cranial nerves Overall: crainial nerves 2 - 12 grossly intact 11/05/2013 None Full Exam - General 1995 [...] developed 07/17/2013 None Full Exam - General 1995 Constitutional general appearance Overall: in no acute distress 07/17/2013 None Full Exam - General 1994 Eyes pupils and irises Overall: pupils equal, round, reactive to light and accomodation 07/17/2013 None Full Exam - General 1995 Eyes conjunctiva /eyelids Overall: conjunctiva clear 07/17/2013 None Full Exam - General 1994 Eyes conjunctiva /eyelids Overall: eyelids normal 07/17/2013 None Full Exam - General 1995 Eyes conjunctiva /eyelids Overall: cornea clear 07/17/2013 [...] sounds 07/17/2013 None Full Exam - General 1995 Cardiovascular [...] nourished 10/30/2012 None Full Exam - General 1995 Eyes [...] accomodation 06/07/2012 None Full Exam - General 1995 [...] 10/27/2011 None Full Exam - General 1995 Neck thyroid Overall: normal size 08/2012 None [...] CPT-4: J3301 09/26/2018 THER/PROPH/DIAG INJ SC/IM CPT-4: 59832 09/26/2018 IMMUNIZATION ADMIN CPT -4: 46457 06/27/2018 FLU VAC NO PRSV 4 RAHUL 3 YRS+ Formatting Model/CDA Sections, Assigned to/Zonia Martinez CPT-4: 53606Ybwwrpc 06/27/2018 IMMUNIZATION ADMIN CPT -4: 26425 07/30/2016 IIV4 FLU VACC NO PRESERV ID SNOMED CT: 72206586 CPT-4: 25276 07/30/2016 TRIAMCINOLONE ACET INJ NOS CPT-4: J3301 01/14/2016 IMMUNIZATION ADMIN CPT -4: 17748 07/23/2015 IMMUNIZATION ADMIN EACH ADD CPT-4: 32504 07/23/2015 FLU VACC 4 RAHUL 3 YRS PLUS IM Formatting Model/CDA Sections, Assigned to SNOMED CT: 87739366 CPT-4: 33302Mudzple 07/23/2015 THER/PROPH/DIAG INJ SC/IM CPT-4: 69519 05/02/2014 ROCEPHIN, PER 250 MG CPT-4: J0696 05/02/2014 TRIAMCINOLONE ACET INJ NOS CPT-4: J3301 05/02/2014 ROCEPHIN, PER 250 MG CPT-4: J0696 07/17/2013 TRIAMCINOLONE ACET INJ NOS CPT-4: J3301 06/07/2013 BIOPSY SKIN LESION CPT -4: 67834 11/09/2011 Vital Signs Date Vital 11/24/2018 Blood Pressure 1: 122/70 Code : 8480-6 BMI: 32.7 Code : 89587-5 Heart Rate 1 : 85 bpm Height: 5'8" SpO2: 98% Temperature: 36.6 (C) / 97.9 (F) Weight: 215 lbs 10/31/2018 Blood Pressure 1: 126/78 Code : 8480-6 BMI: 32.7 Code : 17421-8 Heart Rate 1 : 75 bpm Height: 5'8" SpO2: 97% Weight: 215 lbs 09/26/2018 Blood Pressure 1: 130/78 Code : 8480-6 BMI: 32.4 Code : 40352-9 Heart Rate 1 : 67 bpm Height: 5'8" SpO2: 97% Temperature: 36.5 (C) / 97.7 (F) Weight: 213 lbs 06/27/2018 Blood Pressure 1: 132/78 Code : 8480-6 BMI: 33.9 Code : 08364-3 Heart Rate 1 : 66 bpm Height: 5'8" SpO2: 95% Weight: 223 lbs 05/11/2018 Blood Pressure 1: 140/90 Code : 8480-6 BMI: 33.8 Code : 13754-9 Heart Rate 1 : 74 bpm Height: 5'8" SpO2: 98% Weight: 222 lbs 03/08/2017 Blood Pressure 1: 144/86 Code : 8480-6 BMI: 31.2 Code : 46810-3 Heart Rate 1 : 70 bpm Height: 5'8" SpO2: 98% Weight: 205 lbs 09/06/2016 Blood Pressure 1: 128/86 Code : 8480-6 BMI: 28.4 Code : 81766-8 Heart Rate 1 : 86 bpm Height: 5'8" SpO2: 96% Weight: 187 lbs 07/08/2016 Blood Pressure 1: 120/60 Code : 8480-6 BMI: 28.4 Code : 63915-4 Height: 5'8" Temperature: 37.8 (C) / 100.1 (F) Weight: 187 lbs 01/14/2016 Blood Pressure 1: 152/86 Code : 8480-6 BMI: 30.4 Code : 48474-1 Heart Rate 1 : 83 bpm Height: 5'8" SpO2: 97% Weight: 200 lbs 11/17/2015 Blood Pressure 1: 142/90 Code : 8480-6 BMI: 33.9 Code : 46278-2 Heart Rate 1 : 75 bpm Height: 5'8" SpO2: 97% Weight: 223 lbs 08/29/2015 BMI: 35.6 Code: 09850-9 Heart Rate 1: 94 bpm Height: 5'8" SpO2: 98% Weight: 234 lbs 01/27/2015 Blood Pressure 1: 140/94 Code : 8480-6 Heart Rate 1: 88 bpm Height: 5'8" SpO2: 98% Weight: 08/05/2014 Blood Pressure 1: 138/82 Code : 8480-6 BMI: 33.6 Code : 55711-6 Heart Rate 1 : 76 bpm Height: 5'8" Weight: 221 lbs 05/02/2014 Blood Pressure 1: 142/82 Code : 8480-6 Heart Rate 1: 84 bpm Height: SpO2: 100% Temperature: 37.1 (C) / 98.7 (F) Weight: 02/04/2014 Blood Pressure 1: 108/78 Code : 8480-6 BMI: 36.2 Code : 02589-3 Heart Rate 1 : 60 bpm Height: 5'8" Weight: 238 lbs 11/05/2013 Blood Pressure 1: 134/74 Code : 8480-6 BMI: 35.9 Code : 61543-8 Heart Rate 1 : 68 bpm Height: 5'8" Weight: 236 lbs 07/17/2013 Blood Pressure 1: 136/88 Code : 8480-6 BMI: 35.9 Code : 00184-4 Heart Rate 1 : 72 bpm Height: 5'8" Temperature: 36.4 (C) / 97.6 (F) Weight: 236 lbs 06/07/2013 Blood Pressure 1: 134/92 Code : 8480-6 Heart Rate 1: 72 bpm Temperature: 37.0 (C) / 98.6 (F) Weight: 04/30/2013 Blood Pressure 1: 148/78 Code : 8480-6 BMI: 35.1 Code : 97845-6 Heart Rate 1 : 64 bpm Height: 5'8" Weight: 231 lbs 01/29/2013 Blood Pressure 1: 128/84 Code : 8480-6 BMI: 34.4 Code : 44361-5 Heart Rate 1 : 76 bpm Height: 5'8" Weight: 226 lbs 10/30/2012 Blood Pressure 1: 118/72 Code : 8480-6 BMI: 33.5 Code : 71054-9 Heart Rate 1 : 64 bpm Height: [...] Code : 8480-6 BMI: 29.5 Code : 51048-4 Heart Rate 1 : 72 bpm Height: [...] Code : 8480-6 BMI: 29.3 Code : 27206-5 Heart Rate 1 : 76 bpm Height: [...] None shoulder pain Triggers activity 11/17/2015 lifting lay cough Location in the throat 08/29/2015 None [...] data Encounters Encounter Performer Location Codes Date ([id number]) 93793 EST. PATIENT, LEVEL III Diagnosis: Cough[ICD10: R05] Diagnosis: Acute upper respiratory infection, unspecified[ICD10: J06.9] Che Olivares MD, [facility] CPT-4: 42402 11/24/2018 ([id number]) 00215 EST. PATIENT, LEVEL III Diagnosis: Essential (primary) hypertension[ICD10: I10] Diagnosis: Major depressive disorder, recurrent, moderate[ICD10: F33.1] Diagnosis: Other insomnia[ICD10: G47.09] Verona Olivares MD, [facility] CPT- 4: 91391 10/31/2018 42194 EST. PATIENT, LEVEL III Diagnosis: Acute laryngopharyngitis[ICD10: J06.0] Diagnosis: Other allergic rhinitis[ICD10: J30.89] Solange Olivares MD, [facility] CPT-4: 23558 09/26/2018 ([id number]) 24882 EST. PATIENT, LEVEL III Diagnosis: Essential (primary) hypertension[ICD10: I10] Diagnosis: Major depressive disorder, recurrent, moderate[ICD10: F33.1] Diagnosis: Generalized anxiety disorder[ICD10: F41.1] Diagnosis: Encounter for immunization[ICD10: Z23] Verona Olivares MD, [facility] CPT-4: 01307 06/27/2018 ([id number]) 91097 EST. PATIENT, LEVEL IV Diagnosis: Essential (primary) hypertension[ICD10: I10] Diagnosis: Major depressive disorder, recurrent, moderate[ICD10: F33.1] Diagnosis: Generalized anxiety disorder[ICD10: F41.1] Verona Olivares MD, [facility] CPT-4: 85482 05/11/2018 ([id number]) 54609 EST. PATIENT, LEVEL III Diagnosis: Acute recurrent maxillary sinusitis[ICD10: J01.01] Diagnosis: Other hallucinations[ICD10: R44.2] Diagnosis: Allergic rhinitis due to pollen[ICD10: J30.1] Che Olivares MD, [facility] CPT-4: 29286 03/08/2017 ([id number]) 10257 EST. PATIENT, LEVEL II Diagnosis: Cellulitis of right upper limb[ICD10: L03.113] Che Olivares MD, [facility] CPT-4: 94444 09/06/2016 ([id number]) 80130 EST. PATIENT, LEVEL III Diagnosis: Cough[ICD10: R05] Diagnosis: Fever, unspecified[ICD10: R50.9] Diagnosis: Pain, unspecified[ICD10: R52] Che Olivares MD, [facility] CPT-4: 09566 07/08/2016 01245 EST. PATIENT, LEVEL IV Diagnosis: Rash and other nonspecific skin eruption[ICD10: R21] Solange Olivares MD, [facility] CPT-4: 75811 01/14/2016 ([id number]) 22834 EST. PATIENT, LEVEL III Diagnosis: Pain in left shoulder[ICD10: M25.512] Diagnosis: Pain in right shoulder[ICD10: M25.511] Diagnosis: Bicipital tendinitis, left shoulder[ICD10: M75.22] Che Olivares MD, [facility] CPT-4: 59142 11/17/2015 80543 EST. PATIENT, LEVEL IV Diagnosis: Epigastric pain[ICD10: R10.13] Diagnosis: Acute upper respiratory infection, unspecified[ICD10: J06.9] Solange Olivares MD , [facility] CPT-4: 27880 08/29/2015 ([id number]) 49431 EST. PATIENT, LEVEL III Diagnosis: Left knee pain[ICD9: 719.46] Diagnosis: ACUTE URI[ICD9: 465.9] Diagnosis: ALLERGIC RHINITIS[ICD9: 477.9] Che Olivares MD, [facility] CPT-4: 43669 01/27/2015 ([id number]) 15278 EST. PATIENT, LEVEL III Diagnosis: Elevated blood pressure (not hypertension)[ICD9: 796.2] Diagnosis: Biceps tendinitis[ICD9: 726.12] Diagnosis: Wrist pain, acute[ICD9: 719.43] Verona Olivares MD, [facility] CPT- 4: 48567 08/05/2014 ([id number]) 45608 EST. PATIENT, LEVEL III Diagnosis: Acute maxillary sinusitis[ICD9: 461.0] Verona Olivares MD, [facility] CPT-4: 75866 05/02/2014 ([id number]) 38562 EST. PATIENT, LEVEL III Diagnosis: INSOMNIA IN OTHER DIS[ICD9: 327.01] Verona Olivares MD, [facility] CPT-4: 70610 02/04/2014 ([id number]) 93783 EST. PATIENT, LEVEL III Diagnosis: ESSENTIAL HYPERTENSION[SNOMED: 17706446] Diagnosis: DEPRESSIVE DISORDER NEC[ICD9: 311] Verona Olivares MD, [facility] CPT-4: 00777 11/05/2013 ([id number]) 06612 EST. PATIENT, LEVEL III Diagnosis: ACUTE BRONCHITIS[ICD9: 466.0] Che Olivares MD [facility] CPT-4: 63328 07/17/2013 ([id number]) 95699 EST. PATIENT, LEVEL III Diagnosis: ACUTE URI[ICD9: 465.9] Diagnosis: COUGH[ICD9: 786.2] Diagnosis: ALLERGIC RHINITIS[ICD9: 477.9] Che Olivares MD [facility] CPT-4: 92362 06/07/2013 ([id number]) 24466 EST. PATIENT, LEVEL III Diagnosis: ESSENTIAL HYPERTENSION[SNOMED: 03997182] Diagnosis: DEPRESSIVE DISORDER NEC[ICD9: 311] Verona Olivares MD [facility] CPT-4: 01694 04/30/2013 ([id number]) 07419 EST. PATIENT, LEVEL III Diagnosis: ESSENTIAL HYPERTENSION[SNOMED: 35640243] Diagnosis: DEPRESSIVE DISORDER NEC[ICD9: 311] Verona Olivares MD [facility] CPT-4: 42059 01/29/2013 ([id number]) 73763 EST. PATIENT, LEVEL IV Diagnosis: ESSENTIAL HYPERTENSION[SNOMED: 71209653] Diagnosis: DEPRESSIVE DISORDER NEC[ICD9: 311] Diagnosis: OBESITY[ICD9: 278.00] Verona Olivares MD [facility] CPT-4: 79542 10/30/2012 ([id number]) 24065 EST. PATIENT, LEVEL III Diagnosis: ESSENTIAL HYPERTENSION[SNOMED: 97833619] Diagnosis: HYPERLIPIDEMIA[ICD9: 272.4] Diagnosis: DEPRESSIVE DISORDER NEC[ICD9: 311] Verona Olivares MD [facility] CPT-4: 20175 07/12/2012 ([id number]) 26214 EST. PATIENT, LEVEL IV Diagnosis: ESSENTIAL HYPERTENSION[SNOMED: 05152947] Diagnosis: DEPRESSIVE DISORDER NEC[ICD9: 311] Diagnosis: Palpitations[ICD9: 785.1] Diagnosis: Acute maxillary sinusitis[ICD9: 461.0] Verona Olivares MD [facility] CPT-4: 48046 06/07/2012 90032 EST. PATIENT, LEVEL IV Diagnosis: ESSENTIAL HYPERTENSION[SNOMED: 25319248] Diagnosis: COUGH[ICD9: 786.2] Diagnosis: Upper respiratory infection[ICD9: 465.9] [facility] CPT-4: 47418 12/01/2011 ([id number]) 87801 EST. PATIENT, LEVEL III Diagnosis: ESSENTIAL HYPERTENSION[SNOMED: 37992048] [facility] CPT-4: 34314 11/18/2011 ([id number]) 90951 EST. PATIENT, LEVEL III Diagnosis: ESSENTIAL HYPERTENSION[SNOMED: 57716836] Verona Olivares MD, [facility] CPT-4: 53797 11/09/2011 ([id number]) OFFICE VISIT, NEW - LEVEL 4 Diagnosis: Restless leg syndrome[ICD9: 333.94] Diagnosis: INSOMNIA IN OTHER DIS[ICD9: 327.01] Diagnosis: Elevated blood pressure (not hypertension)[ICD9: 796.2] [facility] CPT-4: 94915 10/27/2011 Plan of Care Planned Activity Notes [...] patient's pharmacy. 11/24/2018 Appointment: Che Garcia WPtel: [address] [place], [place] [phone] (15 min) [facility] 11/24/2018 Patient Education: Patient Medication Summary Completed [...] current medications. 10/31/2018 Appointment: Verona Olivares WPtel: [facility] (15 min) Moderate 10/31/2018 Patient Education: [...] allergy spray. 09/26/2018 Appointment: Che Garcia [facility]Ptel[phone] Portal Appointment Requests 09/26/2018 Appointment: Solange Snyder WPtel: [facility] (15 min) Moderate 09/26/2018 Patient Education: [...] nightly 06/27/2018 Appointment: Verona Olivares WPtel: [phone] (15 min) Moderate 06/27/2018 Patient Education: Patient Medication Summary Completed 06/27/2018 Patient Education: Depression Completed 06/27/2018 Appointment: Verona Olivares WPtel: [phone] (15 min) Moderate 06/07/2018 Visit Plan: Hypertension [...] daily. 05/11/2018 Appointment: Verona Olivares WPtel: [phone] [facility] (15 min) Moderate 05/11/2018 Patient Education: [...] not resolve 03/08/2017 Appointment: Che Garcia WPtel: [phone] (15 min) Moderate 03/08/2017 Patient Education: Patient [...] of plan. 09/06/2016 Appointment: Che Garcia WPtel: [phone] (15 min) Moderate 09/06/2016 Patient Education: Patient Medication Summary Completed 09/06/2016 Appointment: Injection 07/30/2016 Patient Education: Patient Medication Summary Completed 07/30/2016 Visit Plan: Iozoi-ohstx-obuj aches-patient sent for stat labs and influenza swab-will treat as indicated-instructed patient we will call her with the results of her testings-tylenol/motrin as needed for fever, increase po fluids. Patient verbalized understanding of plan. 07/08/2016 Appointment: Che Garcia WPtel: [phone] (15 min) Moderate 07/08/2016 Patient Education: [...] completely resolve. 01/27/2015 Appointment: Che Garcia WPtel: [id number] [facility] 01/27/2015 Patient Education: Patient Medication Summary Completed [...] blood pressures. 08/05/2014 Appointment: Verona Olivares WPtel: [facility]5 [facility] [place] Follow up 08/05/2014 Patient Education: Patient [...] for sleep. 02/04/2014 Appointment: Verona Olivares WPtel: [address] [place], [place] [id number] Follow up 02/04/2014 Patient Education: Patient Medication [...] the antidepressant. 11/05/2013 Appointment: Verona Olivares WPtel: [facility] [place] Follow up 11/05/2013 Patient Education: Patient Medication Summary Completed 11/05/2013 Patient Education: Hypertension Completed 11/05/2013 Appointment: Verona Olivares WPtel: [facility] [place] Follow up 10/18/2013 Appointment: Verona Olivares WPtel: [address] [place], [place] [phone] [place] Follow up 08/07/2013 Visit Plan: Bronchitis - acute case of bronchitis identified. Pt has been given antibiotics, breathing treatments as appropriate, and pt has been instructed to call if symptoms are not improved, or if symptoms acutely worsen. RX sent to patient's pharmacy. 07/17/2013 Appointment: Che Garcia WPtel: [address] [place], [place] [id number] [place] [address] Sick 07/17/2013 Patient Education: Patient Medication Summary [...] allergy spray. 06/07/2013 Appointment: Che Garcia WPtel: [address] [place] [address] Sick 06/07/2013 Patient Education: Patient Medication Summary [...] current medications. 04/30/2013 Appointment: Verona Olivares WPtel: [address] [place] [address] Follow up 04/30/2013 Patient Education: Patient Medication [...] medications. 01/29/2013 Appointment: Verona Olivares WPtel: [phone] [facility] Follow up 01/29/2013 Patient Education: Patient [...] options. 10/30/2012 Appointment: Verona Olivares WPtel: [phone] [facility] Follow up 10/30/2012 Patient Education: Patient [...] medications. 07/12/2012 Appointment: Verona Olivares WPtel: [phone] Follow up 07/12/2012 Patient Education: Patient Medication [...] above medications. 06/07/2012 Appointment: Verona Olivares WPtel: [facility] [place] Other 06/07/2012 Patient Education: Patient Medication Summary Completed 06/07/2012 Patient Education: High Blood Pressure: Essential Hypertension Completed 2011 Appointment: Verona Olivares WPtel: [facility] [place] Other 05/29/2012 Visit Plan: Hypertension - [...] cough 12/01/2011 Appointment: Verona Olivares WPtel: [phone] Follow up 12/01/2011 Patient Education: Patient [...] change today. 11/18/2011 Appointment: Verona Olivares WPtel: [phone] [facility] [facility] 11/18/2011 Patient Education: Patient Medication Summary Completed [...] conerns. 11/09/2011 Appointment: Verona Olivares WPtel: [phone] [facility] Procedure 11/09/2011 Patient Education: Patient Medication [...] diet. 10/27/2011 Appointment: Verona Olivares WPtel: [phone] New Patient 10/27/2011 Patient Education: Patient Medication Summary Completed 10/27/2011 Patient Education: Restless Legs Syndrome Completed 10/27/2011 Patient Education: Insomnia Completed 10/27/2011 Instructions Comment tiger balm aleve 2 tabs twice daily [...] exposure. No change in current medications. . [id number] aches-patient sent for stat labs and influenza [...]
--- OUTSIDE RECORDS SUMMARY | 2019-03-02 10:33 | XMS REPORT | CCD ---
Author Author Verona Olivares Organization Verona Olivares MD, [facility] Address [address] [place] [address] Phone Care Team Providers Care Sap Bw Bi Developer Name Role Phone Verona Olivares PP Unavailable CCM Unavailable Summary Purpose Interface Exchange Insurance Providers Payer name Policy type / Coverage type Covered libertarian ID Effective Begin Date Effective End Date [facility] [id number] Unknown Family history Mother Diagnosis Age At [...] Currently employed 10/27/[address]: 886327139 Never smoker 10/27/[address]: 950245841 Never drinks alcohol 10/27/2011 Has the patient [...] ICD-10: J30.1 Active 03/08/2017 Unknown Other hallucinations ICD- 9: 780.1 ICD-10: R44.2 Active 03/08/2017 Unknown Cellulitis of right upper limb ICD-9: 682.3 ICD-10: L03.113 Active 09/05/2016 Unknown VACCIN FOR INFLUENZA ICD- 9: V04.81 ICD-10: Z23 Active 07/29/2016 Unknown Fever, unspecified ICD- 9: 780.60 ICD-10: R50.9 Active 07/07/2016 Unknown Pain, unspecified ICD-9: 780.96 ICD-10: R52 Active 07/07/2016 Unknown Rash and other nonspecific skin eruption ICD-9: 782.1 ICD-10: R21 Active 01/13/2016 Unknown Bicipital tendinitis, left shoulder ICD-9: 726.12 ICD-10: M75.22 Active 11/16/2015 Unknown Pain in left shoulder ICD- 9: 719.41 ICD-10: M25.512 Active 11/16/2015 Unknown Pain in right shoulder ICD-9: 719.41 ICD-10: M25.511 Active 11/16/2015 Unknown Epigastric pain ICD-9: 789.06 ICD-10: R10.13 Active 08/28/2015 Unknown Other screening mammogram ICD-9: V76.12 Active 05/13/2015 Unknown ACUTE URI ICD-9: 465.9 Active 01/27/2015 Unknown ALLERGIC RHINITIS ICD-9: 477.9 Active 01/27/2015 Unknown Left knee pain ICD-9: 719.46 Active 01/27/2015 Unknown Biceps tendinitis ICD-9: 726.12 Active 08/05/2014 Unknown Elevated blood pressure (not hypertension) ICD-9: 796.2 Active 08/05/2014 Unknown Wrist pain, acute ICD-9: 719.43 Active 08/05/2014 Unknown Acute maxillary sinusitis ICD-9: 461.0 Active 05/02/2014 Unknown ACUTE BRONCHITIS ICD-9: 466.0 Active 07/17/2013 Unknown OBESITY ICD-9: 278.00 [...] Active 10/27/2011 Unknown INSOMNIA IN OTHER DIS ICD- 9: 327.01 Active 10/27/2011 Unknown Restless leg syndrome ICD- 9: 333.94 Active 10/27/2011 Unknown Problems Condition Codes [...] 477.9 ICD-10: J30.1 03/08/2017 Active Other hallucinations ICD- 9: 780.1 ICD-10: R44.2 03/08/2017 Active Cellulitis of right upper limb ICD-9: 682.3 ICD-10: L03.113 09/05/2016 Active VACCIN FOR INFLUENZA ICD- 9: V04.81 ICD-10: Z23 07/29/2016 Active Fever, unspecified ICD- 9: 780.60 ICD-10: R50.9 07/07/2016 Active Pain, unspecified ICD-9: 780.96 ICD-10: R52 07/07/2016 Active Rash and other nonspecific skin eruption ICD-9: 782.1 ICD-10: R21 01/13/2016 Active Bicipital tendinitis, left shoulder ICD-9: 726.12 ICD-10: M75.22 11/16/2015 Active Pain in left shoulder ICD- 9: 719.41 ICD-10: M25.512 11/16/2015 Active Pain in right shoulder ICD-9: 719.41 ICD-10: M25.511 11/16/2015 Active Epigastric pain ICD-9: 789.06 ICD-10: R10.13 08/28/2015 Active Other screening mammogram ICD-9: V76.12 05/13/2015 Active ACUTE URI ICD-9: 465.9 01/27/2015 Active ALLERGIC RHINITIS ICD-9: 477.9 01/27/2015 Active Left knee pain ICD-9: 719.46 01/27/2015 Active Biceps tendinitis ICD-9: 726.12 08/05/2014 Active Elevated blood pressure (not hypertension) ICD-9: 796.2 08/05/2014 Active Wrist pain, acute ICD-9: 719.43 08/05/2014 Active Acute maxillary sinusitis ICD-9: 461.0 05/02/2014 Active ACUTE BRONCHITIS ICD-9: 466.0 07/17/2013 Active OBESITY ICD-9: 278.00 10/30/2012 Active Hyperlipidemia Unknown 07/12/2012 Active HYPERLIPIDEMIA ICD-9: 272.4 07/12/2012 Active Depression Unknown 06/07/2012 Active DEPRESSIVE DISORDER NEC ICD-9: 311 06/07/2012 Active Palpitations ICD-9: 785.1 06/07/2012 Active COUGH ICD-9: 786.2 12/01/2011 Active Hypertension Unknown 11/09/2011 Active Changing mole ICD-9: 216.9 11/09/2011 Active ESSENTIAL HYPERTENSION ICD-9: 401.9 11/09/2011 Active Insomnia Unknown 10/27/2011 Active INSOMNIA IN OTHER DIS ICD- 9: 327.01 10/27/2011 Active Restless leg syndrome ICD- 9: 333.94 10/27/2011 Active Medications Medication Codes Instructions Start Date Stop Date Status Fill Instructions prednisone 20 mg tablet RxNorm: 990825 2 Tablet(s) PO daily 12/11/2018 12/10/2018 Inactive Augmentin 875 mg-125 mg tablet RxNorm: 877990 1 Tablet(s) PO BID 12/11/2018 12/17/2018 Inactive Augmentin 875 mg-125 mg tablet RxNorm: 345405 1 Tablet(s) PO BID 12/11/2018 12/10/2018 Inactive prednisone 20 mg tablet RxNorm: 730644 2 Tablet(s) PO daily 12/11/2018 12/13/2018 Inactive promethazine 6.25 mg-codeine 10 mg/5 mL syrup RxNorm: 142268 5-10 Milliliter(s) PO Q6 PRN 11/24/2018 No Stop Date Active Zithromax Z-Tomás 250 mg tablet RxNorm: 416399 1 Tablet(s) PO UD 11/24/2018 11/28/2018 Inactive Kenalog 40 mg/mL suspension for injection RxNorm: 8480306 Milliliter(s) Inj 11/24/2018 11/24/2018 Inactive lisinopril 10 mg tablet RxNorm: 475388 1 Tablet(s) PO daily 11/14/2018 04/12/2019 Active doxepin 10 mg capsule RxNorm: 1282925 1 Capsule(s) PO QHS as needed insomnia 10/31/2018 01/28/2019 Active Kenalog 40 mg/mL suspension for injection RxNorm: 9791108 Milliliter(s) Inj 09/26/2018 09/26/2018 Inactive Augmentin 875 mg-125 mg tablet RxNorm: 500079 1 Tablet(s) PO BID 09/26/2018 10/05/2018 Inactive escitalopram 20 mg tablet RxNorm: 408234 1 Tablet(s) PO QPM 06/27/2018 01/22/2019 Active lisinopril 10 mg tablet RxNorm: 538309 1 Tablet(s) PO daily 06/21/2018 11/13/2018 Inactive escitalopram 10 mg tablet RxNorm: 941336 1 Tablet(s) PO QPM 05/11/2018 06/26/2018 Inactive lisinopril 10 mg tablet RxNorm: 940412 1 Tablet(s) PO daily 05/11/2018 06/20/2018 Inactive alprazolam 0.5 mg tablet RxNorm: 610889 TAKE ONE-HALF TO ONE TABLET BY MOUTH EVERY 6 HOURS NEEDED 09/20/2017 10/04/2017 Inactive Augmentin 875 mg-125 mg tablet RxNorm: 462516 1 Tablet(s) PO BID 03/08/2017 03/17/2017 Inactive alprazolam 0.5 mg tablet RxNorm: 905188 Tablet(s) PO Q6 as needed TAKE ONE-HALF TO ONE TABLET BY MOUTH EVERY 6 HOURS NEEDED 12/24/2016 01/22/2017 Inactive triamcinolone acetonide 0.5 % topical cream RxNorm: 2456909 1 Application TOP BID 09/06/2016 09/15/2016 Inactive Levaquin 500 mg tablet RxNorm: 550632 1 Tablet(s) PO daily 07/08/2016 07/14/2016 Inactive please call her when ready Levaquin 500 mg tablet RxNorm: 399906 1 Tablet(s) PO daily 07/08/2016 07/07/2016 Inactive alprazolam 0.5 mg tablet RxNorm: 364333 Tablet(s) PO Q6 as needed TAKE ONE-HALF TO ONE TABLET BY MOUTH EVERY 6 HOURS NEEDED 04/26/2016 12/23/2016 Inactive Generic For:*XANAX 0.5 MG TABLET 05/16/2013 1:18:18 PM (Appended: Controlled substance eRx refill - RxReferenceNumber: [id number]) alprazolam 0.5 mg tablet RxNorm: 817603 Tablet(s) PO Q6 as needed TAKE ONE-HALF TO ONE TABLET BY MOUTH EVERY 6 HOURS NEEDED 04/26/2016 09/19/2017 Inactive Generic For:*XANAX 0.5 MG TABLET 05/16/2013 1:18:18 PM (Appended: Controlled substance eRx refill - RxReferenceNumber: [id number]) betamethasone dipropionate 0.05 % topical cream RxNorm: 263885 1 TOP UD 1-2 x per day PRN 01/16/2016 No Stop Date Active Kenalog 40 mg/mL suspension for injection RxNorm: 9104167 Milliliter(s) Inj 01/14/2016 01/14/2016 Inactive prednisone 20 mg tablet RxNorm: 224323 2 Tablet(s) PO daily 01/14/2016 01/18/2016 Inactive alprazolam 0.5 mg tablet RxNorm: 626025 Tablet(s) PO Q6 as needed TAKE ONE-HALF TO ONE TABLET BY MOUTH EVERY 6 HOURS NEEDED 09/26/2015 04/25/2016 Inactive Generic For:*XANAX 0.5 MG TABLET 05/16/2013 1:18:18 PM (Appended: Controlled substance eRx refill - RxReferenceNumber: [id number]) azithromycin 250 mg tablet RxNorm: 192074 1 Tablet(s) PO UD 2 pills day one and 1 pill day 2-5 08/29/2015 09/02/2015 Inactive Keflex 500 mg capsule RxNorm: 472855 1 Capsule(s) PO TID 02/03/2015 02/09/2015 Inactive take a probiotic while on the abt Keflex 500 mg capsule RxNorm: 286381 1 Capsule(s) PO TID 02/03/2015 02/02/2015 Inactive take a probiotic while on the abt hydrocodone 5 mg-acetaminophen 325 mg tablet RxNorm: 768994 1 Tablet(s) PO Q6 PRN 01/27/2015 08/16/2015 Inactive Kenalog 40 mg/mL suspension for injection RxNorm: 4585646 2 Milliliter(s) Inj 05/02/2014 05/02/2014 Inactive Zithromax Z-Tomás 250 mg tablet RxNorm: 731013 1 Tablet(s) PO QPM 05/02/2014 05/06/2014 Inactive Rocephin 500 mg solution for injection RxNorm: 878734 1 Milliliter(s) Inj 05/02/2014 05/02/2014 Inactive metoprolol tartrate 25 mg tablet RxNorm: 613045 1/2 Tablet(s) PO BID TAKE ONE-HALF TABLET BY MOUTH TWICE DAILY 11/05/2013 02/03/2014 Inactive vilazodone 40 mg tablet RxNorm: 0033053 1 Tablet(s) PO daily 08/09/2013 02/03/2014 Inactive Zithromax Z-Tomás 250 mg tablet RxNorm: 308450 Tablet(s) PO 07/17/2013 11/04/2013 Inactive Rocephin 500 mg Solution for Injection RxNorm: 3938382 Inj 07/17/2013 07/17/2013 Inactive Kenalog 40 mg/mL Susp for Injection RxNorm: 0690164 1 Milliliter(s) Inj 06/07/2013 06/07/2013 Inactive alprazolam 0.5 mg tablet RxNorm: 005056 1/2-1 Tablet(s) PO Q6 PRN 05/17/2013 No Stop Date Active alprazolam 0.5 mg tablet RxNorm: 934459 Tablet(s) PO TAKE ONE-HALF TO ONE TABLET BY MOUTH EVERY 6 HOURS NEEDED 05/17/2013 09/25/2015 Inactive Generic For:*XANAX 0.5 MG TABLET 05/16/2013 1:18:18 PM (Appended: Controlled substance eRx refill - RxReferenceNumber: [id number]) metoprolol tartrate 25 mg tablet RxNorm: 919547 Tablet(s) PO TAKE ONE-HALF TABLET BY MOUTH TWICE DAILY 02/12/2013 11/04/2013 Inactive metoprolol tartrate 25 mg tablet RxNorm: 988838 1/2 Tablet(s) PO BID 01/29/2013 05/28/2013 Inactive alprazolam 0.5 mg tablet RxNorm: 456249 1/2-1 Tablet(s) PO Q6 PRN 11/28/2012 05/17/2013 Inactive lisinopril 10 mg tablet RxNorm: 344716 1 Tablet(s) PO daily 10/30/2012 01/28/2013 Inactive vilazodone 40 mg tablet RxNorm: 7685466 1 Tablet(s) PO daily 08/08/2012 02/03/2013 Inactive metoprolol tartrate 25 mg tablet RxNorm: 605841 1/2 Tablet(s) PO BID 06/07/2012 10/04/2012 Inactive amoxicillin-potassium clavulanate 500 mg-125 mg tablet RxNorm: 624040 1 Tablet(s) PO TID 06/07/2012 06/13/2012 Inactive Ambien 5 mg tablet RxNorm: 186321 1 Tablet(s) PO HS PRN 05/02/2012 05/31/2012 Inactive lisinopril 10 mg tablet RxNorm: 836440 1 Tablet(s) PO daily 11/09/2011 06/05/2012 Inactive pramipexole 0.5 mg Tab RxNorm: 711144 1/2 Tablet(s) PO QHS 11/01/2011 01/29/2012 Inactive pramipexole 0.5 mg Tab RxNorm: 091256 1 Tablet(s) PO QHS 10/27/2011 10/31/2011 Inactive Fish Oil 1,200 mg-144 mg-216 mg Cap RxNorm: 1 Capsule(s) PO daily No Start Date Active potassium 99 mg Tab RxNorm: 1 Tablet(s) PO daily No Start Date 10/29/2012 Inactive betamethasone dipropionate 0.05 % topical cream RxNorm: 279778 1 TOP UD 1-2 x per day PRN No Start Date 01/15/2016 Inactive alprazolam 0.5 mg tablet RxNorm: 838688 1/2-1 Tablet(s) PO Q6 PRN No Start Date 11/27/2012 Inactive Ambien 5 mg tablet RxNorm: 311212 1 Tablet(s) PO HS PRN No Start Date 05/01/2012 Inactive calcium & magnesium carbonates 311 mg-232 mg Tab RxNorm: 866836 1 Tablet(s) PO BID No Start Date 10/29/2012 Inactive multivitamin Tab RxNorm: 1 Tablet(s) PO daily No Start Date 10/29/2012 Inactive vilazodone 40 mg tablet RxNorm: 7152008 1 Tablet(s) PO daily No Start Date 08/07/2012 Inactive Zithromax Z-Tomás 250 mg tablet RxNorm: 682204 Tablet(s) PO No Start Date 07/16/2013 Inactive Medication Administered Medication Codes Instructions Start Date Status Kenalog 40 mg/mL suspension for injection RxNorm: 9590425 Milliliter 11/24/2018 No longer Active Kenalog 40 mg/mL suspension for injection RxNorm: 5732155 Milliliter 09/26/2018 No longer Active Kenalog 40 mg/mL suspension for injection RxNorm: 0074056 Milliliter 01/14/2016 No longer Active Kenalog 40 mg/mL suspension for injection RxNorm: 0751497 2Milliliter 05/02/2014 No longer Active Rocephin 500 mg solution for injection RxNorm: 006251 1Milliliter 05/02/2014 No longer Active Rocephin 500 mg Solution for Injection RxNorm: 2786181 07/17/2013 No longer Active Kenalog 40 mg/mL Susp for Injection RxNorm: 5968746 1Milliliter 06/07/2013 No longer Active Immunizations Vaccine [...] ICD-9: 465.9 01/27/2015 ALLERGIC RHINITIS ICD-9: 477.9 01/27/2015 Left knee pain ICD-9: 719.46 01/27/2015 Elevated blood pressure (not hypertension) ICD-9: 796.2 08/05/2014 Biceps tendinitis ICD-9: 726.12 08/05/2014 Wrist pain, acute ICD-9: 719.43 08/05/2014 Acute maxillary sinusitis ICD-9: 461.0 05/02/2014 INSOMNIA IN OTHER DIS ICD-9: 327.01 02/04/2014 DEPRESSIVE DISORDER NEC ICD-9: 311 11/05/2013 ESSENTIAL HYPERTENSION SNOMED: 51727113 ICD-9: 401.9 11/05/2013 ACUTE BRONCHITIS ICD-9: 466.0 07/17/2013 COUGH ICD-9: 786.2 06/07/2013 OBESITY ICD-9: 278.00 10/30/2012 HYPERLIPIDEMIA ICD-9: 272.4 07/12/2012 Palpitations ICD-9: 785.1 06/07/2012 Changing mole ICD-9: 216.9 11/09/2011 Restless leg syndrome ICD-9: 333.94 10/27/2011 Reason For Visit Reason For Visit Effective [...] Item Item Code Result Date Influenza A+B Hsc039 Influ A+B Negative 07/08/2016 Cbc With Differential [...] 29.7 pg 07/08/2016 Cbc With Differential Ord2 [place]% 6.8 % 07/08/2016 Cbc With Differential Ord2 [...] 1.19 K/ul 07/08/2016 Cbc With Differential Ord2 [place] ABS# 1.1 K/ul 07/08/2016 Cbc With Differential Ord2 Eos ABS# 0.0 K/ul 07/08/2016 Cbc With Differential Ord2 Baso ABS# 0.0 K/ul 07/08/2016 Comp Metabolic Qcz910 NA 134 mEq/L 07/08/2016 Comp Metabolic Xyv595 K 3.9 mEq/L 07/08/2016 Comp Metabolic Sng525 CL 101 mEq/L 07/08/2016 Comp Metabolic Qxs700 CO2 27.0 mEq/L 07/08/2016 Comp Metabolic Vkb250 ANION GAP 10 07/08/2016 Comp Metabolic Jkt978 GLUCOSE 120 mg/dL 07/08/2016 Comp Metabolic Uzq801 Creat 0.9 mg/dL 07/08/2016 Comp Metabolic Nlm750 eGFR 71 ml/min/1.73m2 07/08/2016 Comp Metabolic Pea902 BUN 16 mg/dL 07/08/2016 Comp Metabolic Lsw514 B/C Ratio 18.4 Ratio 07/08/2016 Comp Metabolic Lvp032 CALCIUM 10.0 mg/dL 07/08/2016 Comp Metabolic Pgn853 ALK PHOS 57 U/L 07/08/2016 Comp Metabolic Xsy921 AST(SGOT) 21 U/L 07/08/2016 Comp Metabolic Cfh009 ALT(SGPT) 20 U/L 07/08/2016 Comp Metabolic Wuh384 BILI T 1.1 mg/dL 07/08/2016 Comp Metabolic Ohk452 ALBUMIN 3.9 g/dL 07/08/2016 Comp Metabolic Ygn815 TPRO 6.2 g/dL 07/08/2016 Comp Metabolic Ccg379 GLOB 2.4 g/dL 07/08/2016 Comp Metabolic Flp909 A/G Ratio 1.6 Ratio 07/08/2016 Comp Metabolic Agf845 Osmo 271 mOsmo 07/08/2016 Comp Metabolic Dpa497 NA 130 mEq/L 08/29/2015 Comp Metabolic Wpo413 K 4.0 mEq/L 08/29/2015 Comp Metabolic Soi057 CL 99 mEq/L 08/29/2015 Comp Metabolic Byt993 CO2 21.0 mEq/L 08/29/2015 Comp Metabolic Jdb714 ANION GAP 14 08/29/2015 Comp Metabolic Mxc185 GLUCOSE 105 mg/dL 08/29/2015 Comp Metabolic Auz063 Creat 1.0 mg/dL 08/29/2015 Comp Metabolic Aiq601 eGFR 62 ml/min/1.73m2 08/29/2015 Comp Metabolic Omc630 BUN 8 mg/dL 08/29/2015 Comp Metabolic Syw671 B/C Ratio 8.2 Ratio 08/29/2015 Comp Metabolic Inp110 CALCIUM 9.9 mg/dL 08/29/2015 Comp Metabolic Bem120 ALK PHOS 93 U/L 08/29/2015 Comp Metabolic Ioq856 AST(SGOT) 16 U/L 08/29/2015 Comp Metabolic Rqk364 ALT(SGPT) 22 U/L 08/29/2015 Comp Metabolic Fue385 BILI T 0.6 mg/dL 08/29/2015 Comp Metabolic Poa168 ALBUMIN 4.3 g/dL 08/29/2015 Comp Metabolic Lri329 TPRO 6.7 g/dL 08/29/2015 Comp Metabolic Ljn937 GLOB 2.4 g/dL 08/29/2015 Comp Metabolic Xvf800 A/G Ratio 1.8 Ratio 08/29/2015 Comp Metabolic Bnr692 Osmo 259 mOsmo 08/29/2015 Cbc With Differential [...] No anorexia 11/24/2018 Constitutional No night sweats 11/24/2018 Constitutional No chills 11/24/2018 Constitutional No diaphoresis 11/24/2018 Constitutional fatigue 11/24/2018 Constitutional No fever 11/24/2018 Constitutional No insomnia 11/24/2018 Constitutional No malaise 11/24/2018 Constitutional No weight loss 11/24/2018 Constitutional No weight gain 11/24/2018 Eyes No eye erythema 11/24/2018 Eyes No eye discharge 11/24/2018 Ears/Nose/Throat/Neck nasal allergies 11/24/2018 Ears/Nose/Throat/Neck nasal discharge 11/24/2018 Ears/Nose/Throat/Neck No otalgia 11/24/2018 Ears/Nose/Throat/Neck No sinus congestion 11/24/2018 Ears/Nose/Throat/Neck No sore throat 11/24/2018 Cardiovascular No chest pain/pressure 11/24/2018 Respiratory productive sputum 11/24/2018 Respiratory cough 11/24/2018 Respiratory chest congestion 11/24/2018 Gastrointestinal No vomiting 11/24/2018 Gastrointestinal No nausea 11/24/2018 Gastrointestinal No diarrhea 11/24/2018 Genitourinary/Nephrology No dysuria 11/24/2018 Musculoskeletal No joint complaint 11/24/2018 Dermatologic No rash 11/24/2018 Neurologic No alteration of consciousness 11/24/2018 Constitutional No recent illness 10/31/2018 Constitutional No anorexia 10/31/2018 Constitutional No night sweats 10/31/2018 Constitutional No chills 10/31/2018 Constitutional No diaphoresis 10/31/2018 Constitutional fatigue 10/31/2018 Constitutional No fever 10/31/2018 Constitutional insomnia 10/31/2018 Eyes No eye discharge 10/31/2018 Eyes No eye erythema 10/31/2018 Ears/Nose/Throat/Neck No dizziness 10/31/2018 Ears/Nose/Throat/Neck No headache 10/31/2018 Cardiovascular fatigue 10/31/2018 Cardiovascular hypertension 10/31/2018 Respiratory No productive sputum 10/31/2018 Respiratory No chest congestion 10/31/2018 Respiratory No cough 10/31/2018 Gastrointestinal No abdominal pain 10/31/2018 Gastrointestinal No constipation 10/31/2018 Gastrointestinal No diarrhea 10/31/2018 Gastrointestinal No nausea 10/31/2018 Gastrointestinal No vomiting 10/31/2018 Musculoskeletal No joint complaint 10/31/2018 Psychiatric anxiety 10/31/2018 Psychiatric depression 10/31/2018 Constitutional recent illness 09/26/2018 Constitutional No chills 09/26/2018 Constitutional No diaphoresis 09/26/2018 Eyes No eye erythema 09/26/2018 Ears/Nose/Throat/Neck nasal allergies 09/26/2018 Ears/Nose/Throat/Neck nasal discharge 09/26/2018 Ears/Nose/Throat/Neck postnasal drip 09/26/2018 Ears/Nose/Throat/Neck sinus congestion 09/26/2018 Ears/Nose/Throat/Neck sore throat 09/26/2018 Cardiovascular No chest pain/pressure 09/26/2018 Cardiovascular No dyspnea 09/26/2018 Respiratory No chest congestion 09/26/2018 Respiratory cough 09/26/2018 Respiratory No dyspnea 09/26/2018 Gastrointestinal No constipation 09/26/2018 Gastrointestinal No diarrhea 09/26/2018 Gastrointestinal No nausea 09/26/2018 Gastrointestinal No vomiting 09/26/2018 Dermatologic No rash 09/26/2018 Neurologic No alteration of consciousness 09/26/2018 Neurologic No mental status change 09/26/2018 Constitutional No fever 09/26/2018 Constitutional No recent illness 06/27/2018 Constitutional No anorexia 06/27/2018 Constitutional No night sweats 06/27/2018 Constitutional No chills 06/27/2018 Constitutional No diaphoresis 06/27/2018 Constitutional fatigue 06/27/2018 Constitutional No fever 06/27/2018 Constitutional insomnia 06/27/2018 Eyes No eye discharge 06/27/2018 Eyes No eye erythema 06/27/2018 Ears/Nose/Throat/Neck No dizziness 06/27/2018 Ears/Nose/Throat/Neck No headache 06/27/2018 Cardiovascular fatigue 06/27/2018 Cardiovascular hypertension 06/27/2018 Respiratory No productive sputum 06/27/2018 Respiratory No chest congestion 06/27/2018 Respiratory No cough 06/27/2018 Gastrointestinal No abdominal pain 06/27/2018 Gastrointestinal No constipation 06/27/2018 Gastrointestinal No diarrhea 06/27/2018 Gastrointestinal No nausea 06/27/2018 Gastrointestinal No vomiting 06/27/2018 Musculoskeletal No joint complaint 06/27/2018 Psychiatric anxiety 06/27/2018 Psychiatric depression 06/27/2018 Constitutional No recent illness 05/11/2018 Constitutional No anorexia 05/11/2018 Constitutional No night sweats 05/11/2018 Constitutional No chills 05/11/2018 Constitutional No diaphoresis 05/11/2018 Constitutional fatigue 05/11/2018 Constitutional No fever 05/11/2018 Constitutional insomnia 05/11/2018 Eyes No eye discharge 05/11/2018 Eyes No eye erythema 05/11/2018 Ears/Nose/Throat/Neck No dizziness 05/11/2018 Ears/Nose/Throat/Neck No headache 05/11/2018 Ears/Nose/Throat/Neck No nasal allergies 05/11/2018 Ears/Nose/Throat/Neck No nasal discharge 05/11/2018 Ears/Nose/Throat/Neck No sore throat 05/11/2018 Respiratory No productive sputum 05/11/2018 Respiratory No chest congestion 05/11/2018 Respiratory No cough 05/11/2018 Gastrointestinal No abdominal pain 05/11/2018 Gastrointestinal No constipation 05/11/2018 Gastrointestinal No diarrhea 05/11/2018 Gastrointestinal No nausea 05/11/2018 Gastrointestinal No vomiting 05/11/2018 Genitourinary/Nephrology No dysuria 05/11/2018 Musculoskeletal No joint complaint 05/11/2018 Dermatologic No rash 05/11/2018 Dermatologic No sores 05/11/2018 Cardiovascular hypertension 05/11/2018 Cardiovascular fatigue 05/11/2018 Psychiatric anxiety 05/11/2018 Psychiatric depression 05/11/2018 Constitutional No recent illness 03/08/2017 Constitutional No anorexia 03/08/2017 Constitutional No night sweats 03/08/2017 Constitutional No chills 03/08/2017 Constitutional No diaphoresis 03/08/2017 Constitutional No fatigue 03/08/2017 Constitutional No fever 03/08/2017 Constitutional No insomnia 03/08/2017 Constitutional No malaise 03/08/2017 Constitutional No weight loss 03/08/2017 Constitutional No weight gain 03/08/2017 Eyes No eye discharge 03/08/2017 Eyes No eye erythema 03/08/2017 Ears/Nose/Throat/Neck nasal allergies 03/08/2017 Ears/Nose/Throat/Neck nasal discharge 03/08/2017 Ears/Nose/Throat/Neck No dizziness 03/08/2017 Ears/Nose/Throat/Neck headache 03/08/2017 Ears/Nose/Throat/Neck No otalgia 03/08/2017 Ears/Nose/Throat/Neck No sore throat 03/08/2017 Cardiovascular No chest pain/pressure 03/08/2017 Cardiovascular No dyspnea 03/08/2017 Cardiovascular No edema 03/08/2017 Respiratory No cough 03/08/2017 Gastrointestinal No abdominal pain 03/08/2017 Gastrointestinal No constipation 03/08/2017 Gastrointestinal No diarrhea 03/08/2017 Genitourinary/Nephrology No dysuria 03/08/2017 Musculoskeletal No joint complaint 03/08/2017 Dermatologic No rash 03/08/2017 Neurologic No alteration of consciousness 03/08/2017 Constitutional No recent illness 09/06/2016 Constitutional No anorexia 09/06/2016 Constitutional No night sweats 09/06/2016 Constitutional No chills 09/06/2016 Constitutional No diaphoresis 09/06/2016 Constitutional No fatigue 09/06/2016 Constitutional No fever 09/06/2016 Constitutional insomnia 09/06/2016 Constitutional No malaise 09/06/2016 Constitutional No weight loss 09/06/2016 Constitutional No weight gain 09/06/2016 Constitutional No obesity 09/06/2016 Eyes No vision change 09/06/2016 Eyes No eye pain 09/06/2016 Ears/Nose/Throat/Neck No dizziness 09/06/2016 Ears/Nose/Throat/Neck No headache 09/06/2016 Cardiovascular No chest pain/pressure 09/06/2016 Cardiovascular No dyspnea 09/06/2016 Respiratory No chest tightness 09/06/2016 Respiratory No dyspnea 09/06/2016 Gastrointestinal No abdominal pain 09/06/2016 Gastrointestinal No nausea 09/06/2016 Gastrointestinal No vomiting 09/06/2016 Genitourinary/Nephrology No dysuria 09/06/2016 Genitourinary/Nephrology No anuria/oliguria 09/06/2016 Musculoskeletal stiffness 09/06/2016 [...] No eye erythema 07/08/2016 Ears/Nose/Throat/Neck No dizziness 07/08/2016 Ears/Nose/Throat/Neck headache 07/08/2016 Ears/Nose/Throat/Neck nasal discharge 07/08/2016 Ears/Nose/Throat/Neck otalgia 07/08/2016 Ears/Nose/Throat/Neck No sinus congestion 07/08/2016 Ears/Nose/Throat/Neck No sore throat 07/08/2016 Cardiovascular No chest pain/pressure 07/08/2016 Respiratory No productive sputum 07/08/2016 Respiratory cough 07/08/2016 Respiratory pleuritic pain 07/08/2016 Gastrointestinal No abdominal pain 07/08/2016 Gastrointestinal nausea 07/08/2016 Gastrointestinal vomiting 07/08/2016 Genitourinary/Nephrology No dysuria 07/08/2016 Musculoskeletal myalgias 07/08/2016 Dermatologic No rash 07/08/2016 Dermatologic No sores 07/08/2016 Neurologic No alteration of consciousness 07/08/2016 Constitutional No recent illness 01/14/2016 Constitutional No night sweats 01/14/2016 Constitutional No chills 01/14/2016 Constitutional No diaphoresis 01/14/2016 Constitutional No fatigue 01/14/2016 Constitutional No fever 01/14/2016 Constitutional No insomnia 01/14/2016 Dermatologic rash 01/14/2016 Neurologic No alteration of consciousness 01/14/2016 Eyes No eye erythema 01/14/2016 Ears/Nose/Throat/Neck No nasal allergies 01/14/2016 Ears/Nose/Throat/Neck No nasal discharge 01/14/2016 Cardiovascular No chest pain/pressure 01/14/2016 Respiratory No cough 01/14/2016 Respiratory No chest congestion 01/14/2016 Gastrointestinal No abdominal pain 01/14/2016 Constitutional No recent illness 11/17/2015 Constitutional No anorexia 11/17/2015 Constitutional No night sweats 11/17/2015 Constitutional No chills 11/17/2015 Constitutional No diaphoresis [...] No eye erythema 08/29/2015 Ears/Nose/Throat/Neck No dizziness 08/29/2015 Ears/Nose/Throat/Neck nasal allergies 08/29/2015 Ears/Nose/Throat/Neck nasal discharge 08/29/2015 Ears/Nose/Throat/Neck No otalgia 08/29/2015 Ears/Nose/Throat/Neck sore throat 08/29/2015 Cardiovascular No chest pain/pressure 08/29/2015 Respiratory productive sputum 08/29/2015 Respiratory No chest congestion 08/29/2015 Respiratory cough 08/29/2015 Gastrointestinal abdominal pain 08/29/2015 Gastrointestinal No constipation 08/29/2015 Gastrointestinal No diarrhea 08/29/2015 Dermatologic No rash 08/29/2015 Dermatologic No sores 08/29/2015 Ears/Nose/Throat/Neck sinus congestion 08/29/2015 Ears/Nose/Throat/Neck postnasal drip 08/29/2015 Ears/Nose/Throat/Neck No hoarseness 08/29/2015 Constitutional recent illness 01/27/2015 Constitutional No anorexia 01/27/2015 Constitutional No chills 01/27/2015 Constitutional No night sweats 01/27/2015 Constitutional No diaphoresis 01/27/2015 Constitutional No fatigue 01/27/2015 Constitutional No fever 01/27/2015 Constitutional No insomnia 01/27/2015 Constitutional No malaise 01/27/2015 Constitutional No weight loss 01/27/2015 Constitutional No weight gain 01/27/2015 Eyes No eye discharge 01/27/2015 Eyes No eye erythema 01/27/2015 Ears/Nose/Throat/Neck nasal allergies 01/27/2015 Ears/Nose/Throat/Neck nasal discharge 01/27/2015 Ears/Nose/Throat/Neck No dizziness 01/27/2015 Ears/Nose/Throat/Neck No otalgia 01/27/2015 Ears/Nose/Throat/Neck sore throat 01/27/2015 Cardiovascular No chest pain/pressure 01/27/2015 Respiratory No productive sputum 01/27/2015 Respiratory No chest congestion 01/27/2015 Respiratory cough 01/27/2015 Gastrointestinal No abdominal pain 01/27/2015 Gastrointestinal No constipation 01/27/2015 Gastrointestinal No diarrhea 01/27/2015 Genitourinary/Nephrology No dysuria 01/27/2015 Musculoskeletal joint complaint 01/27/2015 Dermatologic No rash 01/27/2015 Dermatologic No sores 01/27/2015 Constitutional insomnia 08/05/2014 Constitutional fatigue 08/05/2014 Constitutional No recent illness 08/05/2014 Cardiovascular No chest pain/pressure 08/05/2014 Cardiovascular No dyspnea 08/05/2014 Cardiovascular No edema 08/05/2014 Respiratory No chest congestion 08/05/2014 Gastrointestinal No constipation 08/05/2014 Gastrointestinal No diarrhea 08/05/2014 Musculoskeletal stiffness 08/05/2014 Musculoskeletal shoulder pain 08/05/2014 Psychiatric No anxiety 08/05/2014 Psychiatric No depression 08/05/2014 Dermatologic No rash 08/05/2014 Dermatologic No scar 08/05/2014 Constitutional No anorexia 08/05/2014 Constitutional No night sweats 08/05/2014 Constitutional No chills 08/05/2014 Constitutional No diaphoresis 08/05/2014 Constitutional No fever 08/05/2014 Eyes No eye discharge 08/05/2014 Eyes No eye erythema 08/05/2014 Ears/Nose/Throat/Neck No dizziness 08/05/2014 Ears/Nose/Throat/Neck No headache 08/05/2014 Ears/Nose/Throat/Neck No nasal allergies 08/05/2014 Ears/Nose/Throat/Neck No nasal discharge 08/05/2014 Ears/Nose/Throat/Neck No sore throat 08/05/2014 Respiratory No productive sputum 08/05/2014 Respiratory No cough 08/05/2014 Gastrointestinal No abdominal pain 08/05/2014 Gastrointestinal No nausea 08/05/2014 Gastrointestinal No vomiting 08/05/2014 Genitourinary/Nephrology No dysuria 08/05/2014 Musculoskeletal No joint complaint 08/05/2014 Dermatologic No sores 08/05/2014 Constitutional recent illness 05/02/2014 Constitutional No anorexia 05/02/2014 Constitutional No night sweats 05/02/2014 Constitutional chills 05/02/2014 Constitutional No diaphoresis 05/02/2014 Constitutional No fatigue 05/02/2014 Constitutional No fever 05/02/2014 Constitutional No insomnia 05/02/2014 Constitutional No malaise 05/02/2014 Eyes No eye discharge 05/02/2014 Eyes No eye erythema 05/02/2014 Ears/Nose/Throat/Neck No dizziness 05/02/2014 Ears/Nose/Throat/Neck headache 05/02/2014 Ears/Nose/Throat/Neck nasal discharge 05/02/2014 Ears/Nose/Throat/Neck No otitis media 05/02/2014 Ears/Nose/Throat/Neck sinus congestion 05/02/2014 Ears/Nose/Throat/Neck sore throat 05/02/2014 Cardiovascular No chest pain/pressure 05/02/2014 Respiratory productive sputum 05/02/2014 Respiratory chest congestion 05/02/2014 Respiratory cough 05/02/2014 Gastrointestinal No constipation 05/02/2014 Gastrointestinal No diarrhea 05/02/2014 Gastrointestinal No vomiting 05/02/2014 Gastrointestinal nausea 05/02/2014 Genitourinary/Nephrology No dysuria 05/02/2014 Dermatologic No rash 05/02/2014 Dermatologic No acne rosacea 05/02/2014 Psychiatric No anxiety 05/02/2014 Psychiatric No depression 05/02/2014 Constitutional No recent illness 02/04/2014 Constitutional No anorexia 02/04/2014 Constitutional No night sweats 02/04/2014 Constitutional No chills 02/04/2014 Constitutional No diaphoresis 02/04/2014 Constitutional fatigue 02/04/2014 Constitutional No fever 02/04/2014 Eyes No eye discharge 02/04/2014 Eyes No eye erythema 02/04/2014 Ears/Nose/Throat/Neck No dizziness 02/04/2014 Ears/Nose/Throat/Neck No headache 02/04/2014 Ears/Nose/Throat/Neck No nasal allergies 02/04/2014 Ears/Nose/Throat/Neck No nasal discharge 02/04/2014 Ears/Nose/Throat/Neck No sore throat 02/04/2014 Respiratory No productive sputum 02/04/2014 Respiratory No chest congestion 02/04/2014 Respiratory No cough 02/04/2014 Gastrointestinal No abdominal pain 02/04/2014 Gastrointestinal No constipation 02/04/2014 Gastrointestinal No diarrhea 02/04/2014 Gastrointestinal No nausea 02/04/2014 Gastrointestinal No vomiting 02/04/2014 Genitourinary/Nephrology No dysuria 02/04/2014 Musculoskeletal No joint complaint 02/04/2014 Dermatologic No rash 02/04/2014 Dermatologic No sores 02/04/2014 Psychiatric No anxiety 02/04/2014 Psychiatric No depression 02/04/2014 Constitutional malaise 02/04/2014 Constitutional No recent illness 11/05/2013 Constitutional No anorexia 11/05/2013 Constitutional No night sweats 11/05/2013 Constitutional No chills 11/05/2013 Constitutional No diaphoresis 11/05/2013 Constitutional fatigue 11/05/2013 Constitutional No fever 11/05/2013 Eyes No eye discharge 11/05/2013 Eyes No eye erythema 11/05/2013 Ears/Nose/Throat/Neck No dizziness 11/05/2013 Ears/Nose/Throat/Neck No headache 11/05/2013 Ears/Nose/Throat/Neck No nasal allergies 11/05/2013 Ears/Nose/Throat/Neck No nasal discharge 11/05/2013 Ears/Nose/Throat/Neck No sore throat 11/05/2013 Respiratory No productive sputum 11/05/2013 Respiratory No chest congestion 11/05/2013 Respiratory No cough 11/05/2013 Gastrointestinal No abdominal pain 11/05/2013 Gastrointestinal No constipation 11/05/2013 Gastrointestinal No diarrhea 11/05/2013 Gastrointestinal No nausea 11/05/2013 Gastrointestinal No vomiting 11/05/2013 Genitourinary/Nephrology No dysuria 11/05/2013 Musculoskeletal No joint complaint 11/05/2013 Dermatologic No rash 11/05/2013 Dermatologic No sores 11/05/2013 Psychiatric No anxiety 11/05/2013 Psychiatric No depression 11/05/2013 Constitutional No fever 07/17/2013 Constitutional No chills 07/17/2013 Eyes No eye discharge 07/17/2013 Eyes No eye erythema 07/17/2013 Ears/Nose/Throat/Neck No dizziness 07/17/2013 Ears/Nose/Throat/Neck nasal discharge 07/17/2013 Ears/Nose/Throat/Neck No otalgia 07/17/2013 Ears/Nose/Throat/Neck sinus congestion 07/17/2013 Ears/Nose/Throat/Neck No facial pain 07/17/2013 Cardiovascular No chest pain/pressure 07/17/2013 Cardiovascular No dyspnea 07/17/2013 Cardiovascular fatigue 07/17/2013 Cardiovascular No palpitations 07/17/2013 Respiratory cough 07/17/2013 Respiratory chest tightness 07/17/2013 Respiratory No wheezing 07/17/2013 Gastrointestinal No abdominal pain 07/17/2013 Gastrointestinal No constipation 07/17/2013 Gastrointestinal No diarrhea 07/17/2013 Gastrointestinal No nausea 07/17/2013 Gastrointestinal No vomiting 07/17/2013 Dermatologic No rash 07/17/2013 Dermatologic No sores 07/17/2013 Constitutional recent illness 06/07/2013 Constitutional No night sweats 06/07/2013 Constitutional No anorexia 06/07/2013 Constitutional No chills 06/07/2013 Constitutional No diaphoresis 06/07/2013 Constitutional fatigue 06/07/2013 Constitutional No fever 06/07/2013 Constitutional No insomnia 06/07/2013 Eyes No eye discharge 06/07/2013 Eyes No eye erythema 06/07/2013 Cardiovascular No chest pain/pressure 06/07/2013 Gastrointestinal No vomiting 06/07/2013 Gastrointestinal No nausea 06/07/2013 Genitourinary/Nephrology No dysuria 06/07/2013 Musculoskeletal No joint complaint 06/07/2013 Dermatologic No sores 06/07/2013 Dermatologic No rash 06/07/2013 Constitutional No recent illness 04/30/2013 Constitutional No anorexia 04/30/2013 Constitutional No night sweats 04/30/2013 Constitutional No chills 04/30/2013 Constitutional No diaphoresis 04/30/2013 Constitutional fatigue 04/30/2013 Constitutional No fever 04/30/2013 Constitutional insomnia 04/30/2013 Eyes No eye discharge 04/30/2013 Eyes No eye erythema 04/30/2013 Ears/Nose/Throat/Neck No dizziness 04/30/2013 Ears/Nose/Throat/Neck No headache 04/30/2013 Ears/Nose/Throat/Neck No nasal allergies 04/30/2013 Ears/Nose/Throat/Neck No nasal discharge 04/30/2013 Ears/Nose/Throat/Neck No sore throat 04/30/2013 Respiratory No productive sputum 04/30/2013 Respiratory No chest congestion 04/30/2013 Respiratory No cough 04/30/2013 Gastrointestinal No abdominal pain 04/30/2013 Gastrointestinal No constipation 04/30/2013 Gastrointestinal No diarrhea 04/30/2013 Gastrointestinal No nausea 04/30/2013 Gastrointestinal No vomiting 04/30/2013 Genitourinary/Nephrology No dysuria 04/30/2013 Musculoskeletal No joint complaint 04/30/2013 Dermatologic No rash 04/30/2013 Dermatologic No sores 04/30/2013 Psychiatric No anxiety 04/30/2013 Psychiatric No depression 04/30/2013 Constitutional No recent illness 01/29/2013 Constitutional No anorexia 01/29/2013 Constitutional No night sweats 01/29/2013 Constitutional No chills 01/29/2013 Constitutional No diaphoresis 01/29/2013 Constitutional fatigue 01/29/2013 Constitutional No fever 01/29/2013 Constitutional insomnia 01/29/2013 Eyes No eye discharge 01/29/2013 Eyes No eye erythema 01/29/2013 Ears/Nose/Throat/Neck No dizziness 01/29/2013 Ears/Nose/Throat/Neck No headache 01/29/2013 Ears/Nose/Throat/Neck No nasal allergies 01/29/2013 Ears/Nose/Throat/Neck No nasal discharge 01/29/2013 Ears/Nose/Throat/Neck No sore throat 01/29/2013 Respiratory No productive sputum 01/29/2013 Respiratory No chest congestion 01/29/2013 Respiratory No cough 01/29/2013 Gastrointestinal No abdominal pain 01/29/2013 Gastrointestinal No constipation 01/29/2013 Gastrointestinal No diarrhea 01/29/2013 Gastrointestinal No nausea 01/29/2013 Gastrointestinal No vomiting 01/29/2013 Genitourinary/Nephrology No dysuria 01/29/2013 Musculoskeletal No joint complaint 01/29/2013 Dermatologic No rash 01/29/2013 Dermatologic No sores 01/29/2013 Psychiatric No anxiety 01/29/2013 Psychiatric No depression 01/29/2013 Constitutional No recent illness 10/30/2012 Constitutional No anorexia 10/30/2012 Constitutional No night sweats 10/30/2012 Constitutional No chills 10/30/2012 Constitutional No diaphoresis 10/30/2012 Constitutional fatigue 10/30/2012 Constitutional No fever 10/30/2012 Constitutional insomnia 10/30/2012 Eyes No eye discharge 10/30/2012 Eyes No eye erythema 10/30/2012 Ears/Nose/Throat/Neck No dizziness 10/30/2012 Ears/Nose/Throat/Neck No headache 10/30/2012 Ears/Nose/Throat/Neck No nasal allergies 10/30/2012 Ears/Nose/Throat/Neck No nasal discharge 10/30/2012 Ears/Nose/Throat/Neck No sore throat 10/30/2012 Respiratory No productive sputum 10/30/2012 Respiratory No chest congestion 10/30/2012 Respiratory No cough 10/30/2012 Gastrointestinal No abdominal pain 10/30/2012 Gastrointestinal No constipation 10/30/2012 Gastrointestinal No diarrhea 10/30/2012 Gastrointestinal No nausea 10/30/2012 Gastrointestinal No vomiting 10/30/2012 Genitourinary/Nephrology No dysuria 10/30/2012 Musculoskeletal No joint complaint 10/30/2012 Dermatologic No rash 10/30/2012 Dermatologic No sores 10/30/2012 Constitutional No recent illness 07/12/2012 Constitutional No anorexia 07/12/2012 Constitutional No night sweats 07/12/2012 Constitutional No chills 07/12/2012 Constitutional No diaphoresis 07/12/2012 Constitutional fatigue 07/12/2012 Constitutional No fever 07/12/2012 Constitutional insomnia 07/12/2012 Eyes No eye discharge 07/12/2012 Eyes No eye erythema 07/12/2012 Ears/Nose/Throat/Neck No dizziness 07/12/2012 Ears/Nose/Throat/Neck No headache 07/12/2012 Ears/Nose/Throat/Neck No nasal allergies 07/12/2012 Ears/Nose/Throat/Neck No nasal discharge 07/12/2012 Ears/Nose/Throat/Neck No sore throat 07/12/2012 Respiratory No productive sputum 07/12/2012 Respiratory No chest congestion 07/12/2012 Respiratory No cough 07/12/2012 Gastrointestinal No vomiting 07/12/2012 Gastrointestinal No nausea 07/12/2012 Gastrointestinal No abdominal pain 07/12/2012 Gastrointestinal No constipation 07/12/2012 Gastrointestinal No diarrhea 07/12/2012 Genitourinary/Nephrology No dysuria 07/12/2012 Dermatologic No rash 07/12/2012 Dermatologic No sores 07/12/2012 Musculoskeletal No joint complaint 07/12/2012 Constitutional No night sweats 06/07/2012 Constitutional No chills 06/07/2012 Constitutional No fever 06/07/2012 Constitutional insomnia 06/07/2012 Eyes No vision change 06/07/2012 Ears/Nose/Throat/Neck No dizziness 06/07/2012 Ears/Nose/Throat/Neck No headache 06/07/2012 Respiratory No chest congestion 06/07/2012 Respiratory No chest tightness 06/07/2012 Respiratory No cough 06/07/2012 Gastrointestinal No abdominal pain 06/07/2012 Gastrointestinal No constipation 06/07/2012 Gastrointestinal No diarrhea 06/07/2012 Genitourinary/Nephrology No urinary urgency 06/07/2012 Genitourinary/Nephrology No urinary frequency 06/07/2012 Genitourinary/Nephrology No urinary incontinence 06/07/2012 Genitourinary/Nephrology No vaginal discharge 06/07/2012 Musculoskeletal No stiffness 06/07/2012 Musculoskeletal arthralgia(s) 06/07/2012 Musculoskeletal No muscle weakness 06/07/2012 Musculoskeletal No myalgias 06/07/2012 Neurologic No ataxia 06/07/2012 Neurologic No gait abnormality 06/07/2012 Neurologic syncope 06/07/2012 Constitutional No night sweats 12/01/2011 Constitutional No chills 12/01/2011 Constitutional fatigue 12/01/2011 Constitutional No fever 12/01/2011 Constitutional malaise 12/01/2011 Cardiovascular No chest pain/pressure 12/01/2011 Cardiovascular hypertension 12/01/2011 Respiratory cough 12/01/2011 Respiratory chest congestion 12/01/2011 Respiratory chest tightness 12/01/2011 Respiratory productive sputum 12/01/2011 Musculoskeletal myalgias 12/01/2011 Ears/Nose/Throat/Neck hoarseness 12/01/2011 Ears/Nose/Throat/Neck No dizziness 12/01/2011 Ears/Nose/Throat/Neck No dysphagia 12/01/2011 Ears/Nose/Throat/Neck No nasal pain 12/01/2011 Ears/Nose/Throat/Neck No oral lesion 12/01/2011 Ears/Nose/Throat/Neck No oral pain 12/01/2011 Ears/Nose/Throat/Neck postnasal drip 12/01/2011 Ears/Nose/Throat/Neck No sinus congestion 12/01/2011 Ears/Nose/Throat/Neck sore throat 12/01/2011 Constitutional No chills 11/18/2011 Constitutional fatigue 11/18/2011 Constitutional No fever 11/18/2011 Ears/Nose/Throat/Neck No headache 11/18/2011 Ears/Nose/Throat/Neck No hoarseness 11/18/2011 Ears/Nose/Throat/Neck No nasal allergies 11/18/2011 Ears/Nose/Throat/Neck No nasal discharge 11/18/2011 Cardiovascular No chest pain/pressure 11/18/2011 Cardiovascular No palpitations 11/18/2011 Respiratory pleuritic pain 11/18/2011 Respiratory cough 11/18/2011 Respiratory No chest tightness 11/18/2011 Respiratory No dyspnea 11/18/2011 Gastrointestinal No abdominal pain 11/18/2011 Gastrointestinal No constipation 11/18/2011 Gastrointestinal No nausea 11/18/2011 Gastrointestinal No vomiting 11/18/2011 Musculoskeletal No joint complaint 11/18/2011 Musculoskeletal No swelling 11/18/2011 Musculoskeletal No stiffness 11/18/2011 Dermatologic No rash 11/18/2011 Dermatologic No sores 11/18/2011 Constitutional No night sweats 11/09/2011 Constitutional No chills 11/09/2011 Constitutional No fever 11/09/2011 Constitutional No insomnia 11/09/2011 Cardiovascular exercise intolerance 11/09/2011 Cardiovascular hypertension 11/09/2011 Respiratory No cough 11/09/2011 Respiratory No chest tightness 11/09/2011 Respiratory No chest congestion 11/09/2011 Neurologic No headache 11/09/2011 Neurologic No dizziness 11/09/2011 Musculoskeletal arthralgia(s) 10/27/2011 Musculoskeletal No stiffness 10/27/2011 Musculoskeletal No muscle weakness 10/27/2011 Musculoskeletal No myalgias 10/27/2011 Neurologic No gait abnormality 10/27/2011 Neurologic No ataxia 10/27/2011 Constitutional No night sweats 10/27/2011 Constitutional No chills 10/27/2011 Constitutional No fever 10/27/2011 Constitutional insomnia 10/27/2011 Cardiovascular No chest pain/pressure 10/27/2011 Cardiovascular No edema 10/27/2011 Cardiovascular fatigue 10/27/2011 Cardiovascular No exercise intolerance 10/27/2011 Respiratory No cough 10/27/2011 Respiratory No chest tightness 10/27/2011 Respiratory No chest congestion 10/27/2011 Gastrointestinal No abdominal pain 10/27/2011 Gastrointestinal No constipation 10/27/2011 Gastrointestinal No diarrhea 10/27/2011 Genitourinary/Nephrology No urinary frequency 10/27/2011 Genitourinary/Nephrology No urinary incontinence 10/27/2011 Genitourinary/Nephrology No vaginal discharge 10/27/2011 Genitourinary/Nephrology No urinary urgency 10/27/2011 Neurologic syncope 10/27/2011 Eyes No vision change 10/27/2011 Ears/Nose/Throat/Neck No dizziness 10/27/2011 Ears/Nose/Throat/Neck No headache 10/27/2011 Physical Exam Exam Name System Name Item Name Status Result Effective Dates Notes Full Exam - ENT Constitutional general appearance Overall: well nourished 11/24/2018 None Full Exam - ENT Constitutional general appearance Overall: well developed 11/24/2018 None Full Exam - ENT Constitutional general appearance Overall: in no acute distress 11/24/2018 None Full Exam - ENT Ears/Nose/Throat otoscopic exam Left tympanic membrane: air-fluid level 11/24/2018 None Full Exam - ENT Ears/Nose/Throat otoscopic exam Overall: external auditory canals normal 11/24/2018 None Full Exam - ENT Ears/Nose/Throat otoscopic exam Right tympanic membrane: air-fluid level 11/24/2018 None Full Exam - ENT Ears/Nose/Throat lips/teeth/gingiva Overall: benign lips 11/24/2018 None Full Exam - ENT Ears/Nose/Throat oropharynx Overall: oral mucosa clear 11/24/2018 None Full Exam - ENT Ears/Nose/Throat oropharynx Posterior Pharynx: clear post nasal drainage 11/24/2018 None Full Exam - ENT Respiratory inspection Overall: no retractions 11/24/2018 None Full Exam - ENT Respiratory inspection Overall: normal rate 11/24/2018 None Full Exam - ENT Respiratory auscultation [...] 11/24/2018 None Full Exam - Cardiology Eyes conjunctiva/eyelids Overall: conjunctiva clear 11/24/2018 None Full Exam [...] ENT Ears/Nose/Throat otoscopic exam Left tympanic membrane: air-fluid level 09/26/2018 None Full Exam - ENT Ears/Nose/Throat otoscopic exam Right tympanic membrane: air-fluid level 09/26/2018 None Full Exam - ENT Ears/Nose/Throat lips/teeth/gingiva Overall: benign lips 09/26/2018 None Full Exam - ENT Ears/Nose/Throat oropharynx Overall: oral mucosa clear 09/26/2018 None Full Exam - ENT Ears/Nose/Throat oropharynx Posterior Pharynx: clear post nasal drainage 09/26/2018 None Full Exam - ENT Ears/Nose/Throat oropharynx Posterior Pharynx: erythema 09/26/2018 None Full Exam - ENT Respiratory inspection Overall: no retractions 09/26/2018 None Full Exam - ENT Respiratory inspection Overall: normal rate 09/26/2018 None Full Exam - ENT Respiratory auscultation [...] - ENT Respiratory inspection Overall: normal rate 03/08/2017 None Full Exam - ENT Respiratory auscultation [...] 09/06/2016 None Full Exam - Dermatology Eyes conjunctiva/eyelids Overall: clear conjunctiva bilaterally 09/06/2016 None Full Exam - Dermatology Eyes conjunctiva/eyelids Overall: clear corneas 09/06/2016 None Full Exam - Dermatology Eyes conjunctiva/eyelids Overall: normal eyelids 09/06/2016 None Full Exam [...] None Full Exam - General 1994 Eyes conjunctiva/eyelids Overall: conjunctiva clear 07/08/2016 None Full Exam [...] None Full Exam - General 1994 Eyes conjunctiva/eyelids Overall: conjunctiva clear 01/14/2016 None Full Exam - General 1994 Eyes conjunctiva/eyelids Overall: cornea clear 01/14/2016 None Full Exam - General 1994 Eyes conjunctiva/eyelids Overall: eyelids normal 01/14/2016 None Full Exam [...] General 1994 Ears/Nose/Throat otoscopic exam Tympanic membrane: air-fluid level 08/29/2015 None Full Exam - General [...] 01/27/2015 None Full Exam - Orthopedics Eyes conjunctiva/eyelids Overall: conjunctiva clear 01/27/2015 None Full Exam [...] None Full Exam - General 1995 Eyes conjunctiva/eyelids Overall: conjunctiva clear 07/17/2013 None Full Exam - General 1994 Eyes conjunctiva/eyelids Overall: eyelids normal 07/17/2013 None Full Exam - General 1994 Eyes conjunctiva/eyelids Overall: cornea clear 07/17/2013 None Full Exam [...] - ENT Respiratory inspection Overall: normal rate 06/07/2013 None Full Exam - ENT Face and [...] General 1994 Neck thyroid Overall: normal size 07/12/2012 None Full Exam - General 1994 [...] clubbing 07/12/2012 None Full Exam - General 1995 Cardiovascular auscultation of heart Overall: regular rate 07/12/2012 None Full Exam - General 1995 Cardiovascular auscultation of heart Overall: normal heart sounds 07/12/2012 None Full Exam - General 1994 Cardiovascular auscultation of heart Overall: no murmurs 07/12/2012 None Full Exam - General 1995 Abdomen abdominal exam Overall: no tenderness 07/12/2012 None Full Exam - General 1995 Abdomen abdominal exam Overall: normal bowel sounds [...] General 1994 Neck thyroid Overall: normal size 06/07/2012 None Full Exam - General 1994 [...] General 1994 Ears/Nose/Throat otoscopic exam Tympanic membrane: air-fluid level 12/01/2011 None Full Exam - General 1994 Ears/Nose/Throat oral cavity/pharynx/larynx Posterior Pharynx: cobblestoned 12/01/2011 None Full Exam - General 1994 Ears/Nose/Throat oral cavity/pharynx/larynx Oral mucosa: a normal exam 12/01/2011 None Full Exam - General 1994 Ears/Nose/Throat oral cavity/pharynx/larynx Oropharynx: erythema 12/01/2011 None [...] General 1995 Neck thyroid Overall: normal size 10/27/2011 None Full Exam - General 1994 [...] CPT-4: J3301 09/26/2018 THER/PROPH/DIAG INJ SC/IM CPT-4: 72597 09/26/2018 IMMUNIZATION ADMIN CPT- 4: 72892 06/27/2018 FLU VAC NO PRSV 4 RAHUL 3 YRS+ Formatting Model/CDA Sections, Assigned to/Juan Zonia CPT-4: [id number] 06/27/2018 IMMUNIZATION ADMIN CPT- 4: 09846 07/30/2016 IIV4 FLU VACC NO PRESERV ID SNOMED CT: 83971238 CPT-4: 02030 07/30/2016 TRIAMCINOLONE ACET INJ NOS CPT-4: J3301 01/14/2016 IMMUNIZATION ADMIN CPT- 4: 64723 07/23/2015 IMMUNIZATION ADMIN EACH ADD CPT-4: 98364 07/23/2015 FLU VACC 4 RAHUL 3 YRS PLUS IM Formatting Model/CDA Sections, Assigned to SNOMED CT: [id number] CPT-4: [id number] 07/23/2015 THER/PROPH/DIAG INJ SC/IM CPT-4: 21451 05/02/2014 ROCEPHIN, PER 250 MG CPT- 4: J0696 05/02/2014 TRIAMCINOLONE ACET INJ NOS CPT-4: J3301 05/02/2014 ROCEPHIN, PER 250 MG CPT- 4: J0696 07/17/2013 TRIAMCINOLONE ACET INJ NOS CPT-4: J3301 06/07/2013 BIOPSY SKIN LESION CPT- 4: 70199 11/09/2011 Vital Signs Date Vital 11/24/2018 Blood Pressure 1: 122/70 Code: 8480-6 BMI: 32.7 Code: 28421-1 Heart Rate 1: 85 bpm Height: 5'8" SpO2: 98% Temperature: 36.6 (C) / 97.9 (F) Weight: 215 lbs 10/31/2018 Blood Pressure 1: 126/78 Code: 8480-6 BMI: 32.7 Code: 47434-7 Heart Rate 1: 75 bpm Height: 5'8" SpO2: 97% Weight: 215 lbs 09/26/2018 Blood Pressure 1: 130/78 Code: 8480-6 BMI: 32.4 Code: 88300-0 Heart Rate 1: 67 bpm Height: 5'8" SpO2: 97% Temperature: 36.5 (C) / 97.7 (F) Weight: 213 lbs 06/27/2018 Blood Pressure 1: 132/78 Code: 8480-6 BMI: 33.9 Code: 55054-1 Heart Rate 1: 66 bpm Height: 5'8" SpO2: 95% Weight: 223 lbs 05/11/2018 Blood Pressure 1: 140/90 Code: 8480-6 BMI: 33.8 Code: 98989-5 Heart Rate 1: 74 bpm Height: 5'8" SpO2: 98% Weight: 222 lbs 03/08/2017 Blood Pressure 1: 144/86 Code: 8480-6 BMI: 31.2 Code: 61670-7 Heart Rate 1: 70 bpm Height: 5'8" SpO2: 98% Weight: 205 lbs 09/06/2016 Blood Pressure 1: 128/86 Code: 8480-6 BMI: 28.4 Code: 36530-5 Heart Rate 1: 86 bpm Height: 5'8" SpO2: 96% Weight: 187 lbs 07/08/2016 Blood Pressure 1: 120/60 Code: 8480-6 BMI: 28.4 Code: 86218-7 Height: 5'8" Temperature: 37.8 (C) / 100.1 (F) Weight: 187 lbs 01/14/2016 Blood Pressure 1: 152/86 Code: 8480-6 BMI: 30.4 Code: 19352-7 Heart Rate 1: 83 bpm Height: 5'8" SpO2: 97% Weight: 200 lbs 11/17/2015 Blood Pressure 1: 142/90 Code: 8480-6 BMI: 33.9 Code: 62624-9 Heart Rate 1: 75 bpm Height: 5'8" SpO2: 97% Weight: 223 lbs 08/29/2015 BMI: 35.6 Code: 65011-5 Heart Rate 1: 94 bpm Height: 5'8" SpO2: 98% Weight: 234 lbs 01/27/2015 Blood Pressure 1: 140/94 Code: 8480-6 Heart Rate 1: 88 bpm Height: 5'8" SpO2: 98% Weight: 08/05/2014 Blood Pressure 1: 138/82 Code: 8480-6 BMI: 33.6 Code: 61923-6 Heart Rate 1: 76 bpm Height: 5'8" Weight: 221 lbs 05/02/2014 Blood Pressure 1: 142/82 Code: 8480-6 Heart Rate 1: 84 bpm Height: SpO2: 100% Temperature: 37.1 (C) / 98.7 (F) Weight: 02/04/2014 Blood Pressure 1: 108/78 Code: 8480-6 BMI: 36.2 Code: 55606-4 Heart Rate 1: 60 bpm Height: 5'8" Weight: 238 lbs 11/05/2013 Blood Pressure 1: 134/74 Code: 8480-6 BMI: 35.9 Code: 62722-0 Heart Rate 1: 68 bpm Height: 5'8" Weight: 236 lbs 07/17/2013 Blood Pressure 1: 136/88 Code: 8480-6 BMI: 35.9 Code: 76952-5 Heart Rate 1: 72 bpm Height: 5'8" Temperature: 36.4 (C) / 97.6 (F) Weight: 236 lbs 06/07/2013 Blood Pressure 1: 134/92 Code: 8480-6 Heart Rate 1: 72 bpm Temperature: 37.0 (C) / 98.6 (F) Weight: 04/30/2013 Blood Pressure 1: 148/78 Code: 8480-6 BMI: 35.1 Code: 56856-8 Heart Rate 1: 64 bpm Height: 5'8" Weight: 231 lbs 01/29/2013 Blood Pressure 1: 128/84 Code: 8480-6 BMI: 34.4 Code: 42471-8 Heart Rate 1: 76 bpm Height: 5'8" Weight: 226 lbs 10/30/2012 Blood Pressure 1: 118/72 Code: 8480-6 BMI: 33.5 Code: 72395-5 Heart Rate 1: 64 bpm Height: 5'8" Weight: 220 lbs 07/12/2012 Blood Pressure 1: 134/88 Code: 8480-6 Heart Rate 1: 64 bpm Weight: 214 lbs 06/07/2012 Blood Pressure 1: 152/92 Code: 8480-6 Heart Rate 1: 68 bpm Respiratory Rate: 16 bpm Temperature: 36.7 (C) / 98.0 (F) Weight: 209 lbs 12/01/2011 Blood Pressure 1: 140/82 Code: 8480-6 BMI: 29.5 Code: 67182-0 Heart Rate 1: 72 bpm Height: 5'8" Respiratory Rate: 16 bpm Temperature: 36.7 (C) / 98.0 (F) Weight: 194 lbs 11/18/2011 Blood Pressure 1: 140/88 Code: 8480-6 Heart Rate 1: 76 bpm Respiratory Rate: 18 bpm Weight: 191 lbs 11/09/2011 Blood Pressure 1: 158/94 Code: 8480-6 Heart Rate 1: 76 bpm Respiratory Rate: 16 bpm Weight: 191 lbs 8 oz 10/27/2011 Blood Pressure 1: 144/90 Code: 8480-6 BMI: 29.3 Code: 40781-9 Heart Rate 1: 76 bpm Height: 5'8" Respiratory Rate: 16 bpm Weight: 193 lbs Functional Status No Functional Status data History of Present Illness Symptom Name Status Result Effective Date Notes Onset and Resolution sudden in onset 11/24/2018 None Onset of Symptom 2 weeks ago 11/24/2018 None Severity moderate 11/24/2018 None Frequency of Episodes increasing 11/24/2018 None Significant Medical Conditions allergic rhinitis 11/24/2018 None Significant Medications decongestants 11/24/2018 None Significant Medications nasal spray 11/24/2018 None Triggers no known associated factors 11/24/2018 None Pertinent Findings cough 11/24/2018 None Pertinent Findings decreased energy level 11/24/2018 None Location on both sides 11/24/2018 None Quality acute 11/24/2018 None Quality intermittent 10/31/2018 None Onset and Resolution ongoing 10/31/2018 None Onset of Symptom _ years ago 10/31/2018 None Blood Pressure Values patient checking blood pressure at home - did not bring in readings 10/31/2018 None Pertinent Findings anxiety 10/31/2018 None Pertinent Findings Denies dizziness 10/31/2018 None Pertinent Findings dyspnea 10/31/2018 with anxiety attacks Quality intermittent 10/31/2018 None Onset and Resolution ongoing 10/31/2018 None Pertinent Findings depressed mood 10/31/2018 None Pertinent Findings sleep disturbance 10/31/2018 trouble falling asleep and staying asleep Location frontal sinuses 09/26/2018 None Quality fullness 09/26/2018 None Quality pressure 09/26/2018 None Onset and Resolution sudden in onset 09/26/2018 None Onset of Symptom 10 days ago 09/26/2018 None Frequency of Episodes daily 09/26/2018 None Location both ears 09/26/2018 None Onset and Resolution sudden in onset 09/26/2018 None Onset of Symptom 10 days ago 09/26/2018 None Frequency of Episodes daily 09/26/2018 None Location diffusely 09/26/2018 None Quality aching 09/26/2018 None Quality constant 09/26/2018 None Quality pressure 09/26/2018 None Onset and Resolution sudden in onset 09/26/2018 None Location diffusely 09/26/2018 None Quality aching 09/26/2018 None Quality constant 09/26/2018 None Onset and Resolution sudden in onset [...] right arm 09/06/2016 None fever Quality acute 07/08/2016 None fever Onset and Resolution ongoing 07/08/2016 [...] Denies dyspnea 07/08/2016 None rash Color red 01/14/2016 None rash Onset and Resolution sudden in [...] better, now just itchy cough Quality dry 01/27/2015 None cough Onset of Symptom 3 days [...] with pain medication knee pain Significant Medications NSAID's 01/27/2015 hydrocodone knee pain Mechanism of injury [...] associated factors 07/17/2013 None cough Quality acute 06/07/2013 None cough Onset of Symptom 2 weeks [...] data Encounters Encounter Performer Location Codes Date ([id number]) 53429 EST. PATIENT, LEVEL III Diagnosis: Cough[ICD10: R05] Diagnosis: Acute upper respiratory infection, unspecified[ICD10: J06.9] [facility] CPT-4: 33642 11/24/2018 ([id number]) 55045 EST. PATIENT, LEVEL III Diagnosis: Essential (primary) hypertension[ICD10: I10] Diagnosis: Major depressive disorder, recurrent, moderate[ICD10: F33.1] Diagnosis: Other insomnia[ICD10: G47.09] [facility] CPT-4: 88362 10/31/2018 71920 EST. PATIENT, LEVEL III Diagnosis: Acute laryngopharyngitis[ICD10: J06.0] Diagnosis: Other allergic rhinitis[ICD10: J30.89] Solange Olivares MD, [facility] CPT- 4: 44817 09/26/2018 ([id number]) 11214 EST. PATIENT, LEVEL III Diagnosis: Essential (primary) hypertension[ICD10: I10] Diagnosis: Major depressive disorder, recurrent, moderate[ICD10: F33.1] Diagnosis: Generalized anxiety disorder[ICD10: F41.1] Diagnosis: Encounter for immunization[ICD10: Z23] Verona Olivares MD, [facility] CPT-4: 04526 06/27/2018 ([id number]) 81554 EST. PATIENT, LEVEL IV Diagnosis: Essential (primary) hypertension[ICD10: I10] Diagnosis: Major depressive disorder, recurrent, moderate[ICD10: F33.1] Diagnosis: Generalized anxiety disorder[ICD10: F41.1] Verona Olivares MD, [facility] CPT-4: 39461 05/11/2018 ([id number]) 80827 EST. PATIENT, LEVEL III Diagnosis: Acute recurrent maxillary sinusitis[ICD10: J01.01] Diagnosis: Other hallucinations[ICD10: R44.2] Diagnosis: Allergic rhinitis due to pollen[ICD10: J30.1] Che Olivares MD, [facility] CPT-4: 56753 03/08/2017 ([id number]) 33640 EST. PATIENT, LEVEL II Diagnosis: Cellulitis of right upper limb[ICD10: L03.113] Che Olivares MD, [facility] CPT-4: 40121 09/06/2016 ([id number]) 91330 EST. PATIENT, LEVEL III Diagnosis: Cough[ICD10: R05] Diagnosis: Fever, unspecified[ICD10: R50.9] Diagnosis: Pain, unspecified[ICD10: R52] Che Olivares MD, [facility] CPT-4: 94968 07/08/2016 29694 EST. PATIENT, LEVEL IV Diagnosis: Rash and other nonspecific skin eruption[ICD10: R21] Solange Olivares MD, [facility] CPT-4: 54211 01/14/2016 ([id number]) 03203 EST. PATIENT, LEVEL III Diagnosis: Pain in left shoulder[ICD10: M25.512] Diagnosis: Pain in right shoulder[ICD10: M25.511] Diagnosis: Bicipital tendinitis, left shoulder[ICD10: M75.22] Che Olivares MD, [facility] CPT-4: 01858 11/17/2015 71458 EST. PATIENT, LEVEL IV Diagnosis: Epigastric pain[ICD10: R10.13] Diagnosis: Acute upper respiratory infection, unspecified[ICD10: J06.9] Solange Olivares MD, [facility] CPT-4: 05611 08/29/2015 ([id number]) 86587 EST. PATIENT, LEVEL III Diagnosis: Left knee pain[ICD9: 719.46] Diagnosis: ACUTE URI[ICD9: 465.9] Diagnosis: ALLERGIC RHINITIS[ICD9: 477.9] Che Olivares MD, [facility] CPT-4: 25996 01/27/2015 ([id number]) 31219 EST. PATIENT, LEVEL III Diagnosis: Elevated blood pressure (not hypertension)[ICD9: 796.2] Diagnosis: Biceps tendinitis[ICD9: 726.12] Diagnosis: Wrist pain, acute[ICD9: 719.43] Verona Olivares MD, [facility] CPT-4: 45739 08/05/2014 ([id number]) 83402 EST. PATIENT, LEVEL III Diagnosis: Acute maxillary sinusitis[ICD9: 461.0] Verona Olivares MD, [facility] CPT-4: 13637 05/02/2014 ([id number]) 02834 EST. PATIENT, LEVEL III Diagnosis: INSOMNIA IN OTHER DIS[ICD9: 327.01] Verona Olivares MD, [facility] CPT- 4: 01062 02/04/2014 ([id number]) 00472 EST. PATIENT, LEVEL III Diagnosis: ESSENTIAL HYPERTENSION[SNOMED: 24878771] Diagnosis: DEPRESSIVE DISORDER NEC[ICD9: 311] Verona Olivares MD, [facility] CPT- 4: 14975 11/05/2013 ([id number]) 62302 EST. PATIENT, LEVEL III Diagnosis: ACUTE BRONCHITIS[ICD9: 466.0] Che Olivares MD, [facility] CPT-4: 55260 07/17/2013 ([id number]) 87856 EST. PATIENT, LEVEL III Diagnosis: ACUTE URI[ICD9: 465.9] Diagnosis: COUGH[ICD9: 786.2] Diagnosis: ALLERGIC RHINITIS[ICD9: 477.9] Che Olivares MD, [facility] CPT-4: 92900 06/07/2013 ([id number]) 84786 EST. PATIENT, LEVEL III Diagnosis: ESSENTIAL HYPERTENSION[SNOMED: 30334291] Diagnosis: DEPRESSIVE DISORDER NEC[ICD9: 311] Verona Olivares MD, [facility] CPT- 4: 20687 04/30/2013 ([id number]) 92666 EST. PATIENT, LEVEL III Diagnosis: ESSENTIAL HYPERTENSION[SNOMED: 13147031] Diagnosis: DEPRESSIVE DISORDER NEC[ICD9: 311] Verona Olivares MD, [facility] CPT- 4: 67798 01/29/2013 ([id number]) 80694 EST. PATIENT, LEVEL IV Diagnosis: ESSENTIAL HYPERTENSION[SNOMED: 69786444] Diagnosis: DEPRESSIVE DISORDER NEC[ICD9: 311] Diagnosis: OBESITY[ICD9: 278.00] Verona Olivares MD, [facility] CPT-4: 35515 10/30/2012 ([id number]) 89159 EST. PATIENT, LEVEL III Diagnosis: ESSENTIAL HYPERTENSION[SNOMED: 46745970] Diagnosis: HYPERLIPIDEMIA[ICD9: 272.4] Diagnosis: DEPRESSIVE DISORDER NEC[ICD9: 311] Verona Olivares MD, [facility] CPT- 4: 87342 07/12/2012 ([id number]) 46948 EST. PATIENT, LEVEL IV Diagnosis: ESSENTIAL HYPERTENSION[SNOMED: 74043583] Diagnosis: DEPRESSIVE DISORDER NEC[ICD9: 311] Diagnosis: Palpitations[ICD9: 785.1] Diagnosis: Acute maxillary sinusitis[ICD9: 461.0] Verona Olivares MD, [facility] CPT-4: 67982 06/07/2012 12037 EST. PATIENT, LEVEL IV Diagnosis: ESSENTIAL HYPERTENSION[SNOMED: 03611448] Diagnosis: COUGH[ICD9: 786.2] Diagnosis: Upper respiratory infection[ICD9: 465.9] Verona Olivares MD, [facility] CPT-4: 97277 12/01/2011 ([id number]) 35555 EST. PATIENT, LEVEL III Diagnosis: ESSENTIAL HYPERTENSION[SNOMED: 79487087] [facility] CPT-4: 06223 11/18/2011 ([id number]) 48697 EST. PATIENT, LEVEL III Diagnosis: ESSENTIAL HYPERTENSION[SNOMED: 98252765] [facility] CPT-4: 16447 11/09/2011 ([id number]) OFFICE VISIT, NEW - LEVEL 4 Diagnosis: Restless leg syndrome[ICD9: 333.94] Diagnosis: INSOMNIA IN OTHER DIS[ICD9: 327.01] Diagnosis: Elevated blood pressure (not hypertension)[ICD9: 796.2] [facility] CPT-4: 53732 10/27/2011 Plan of Care Planned Activity Notes [...] patient's pharmacy. 11/24/2018 Appointment: Che Garcia WPtel: [address] [place], [place] [phone] (15 min) Moderate 11/24/2018 Patient Education: Patient [...] current medications. 10/31/2018 Appointment: Verona Olivares WPtel: [facility]5 [facility] (15 min) Moderate 10/31/2018 Patient Education: Patient [...] allergy spray. 09/26/2018 Appointment: Che Garcia WPtel: [facility] Portal Appointment Requests 09/26/2018 Appointment: Solange Snyder WPtel: [facility] (15 min) Moderate 09/26/2018 Patient Education: Patient [...] 20mg nightly 06/27/2018 Appointment: Verona Olivares WPtel: [facility]7 [facility] (15 min) Moderate 06/27/2018 Patient Education: Patient Medication Summary Completed 06/27/2018 Patient Education: Depression Completed 06/27/2018 Appointment: Verona Olivares WPtel: [facility] (15 min) Moderate 06/07/2018 Visit Plan: Hypertension [...] 10mg daily. 05/11/2018 Appointment: Verona Olivares WPtel: [facility]9 [facility] (15 min) Moderate 05/11/2018 Patient Education: Patient [...] not resolve 03/08/2017 Appointment: Che Garcia WPtel: [address] [place] [address] (15 min) Moderate 03/08/2017 Patient Education: Patient Medication Summary Completed 03/08/2017 Patient Education: Obesity Completed 03/08/2017 Visit Plan: Itching-excoriation of right upper arm-bacterial culture of excoriated areas today in the office-RX for triamcinolone cream provided and instructed on use-if culture positive, will add mupirocin ointment. Patient verbalized understanding of plan. 09/06/2016 Visit Plan: Itching-excoriation of right upper arm-bacterial culture of excoriated areas today in the office-RX for triamcinolone cream provided and instructed on use-if culture positive, will add mupirocin ointment. Patient verbalized understanding of plan. 09/06/2016 Appointment: Che Garcia WPtel: [address] [place], [place] [phone] (15 min) Moderate 09/06/2016 Patient Education: Patient Medication Summary Completed 09/06/2016 Appointment: Injection 07/30/2016 Patient Education: Patient Medication Summary Completed 07/30/2016 Visit Plan: Douft-nlwrr-afin aches-patient sent for stat labs and influenza swab-will treat as indicated-instructed patient we will call her with the results of her testings-tylenol/motrin as needed for fever, increase po fluids. Patient verbalized understanding of plan. 07/08/2016 Appointment: Che Garcia WPtel: [address] [place], [place] [phone] (15 min) Moderate 07/08/2016 Patient Education: Patient [...] esophageal reflux. The patient is to take med ications as prescribed and call the office if [...] completely resolve. 01/27/2015 Appointment: [facility]el[phone] [place] [address] 01/27/2015 Patient Education: Patient Medication Summary Completed [...] blood pressures. 08/05/2014 [facility]ment[phone] [place] Follow [facility] 08/05/2014 Patient Education: [...] for sleep. 02/04/2014 Appointment: Verona Olivares WPtel: [facility] [place] Follow up 02/04/2014 Patient Education: Patient [...] the antidepressant. 11/05/2013 Appointment: Verona Olivares WPtel: [facility] [place] Follow up 11/05/2013 Patient Education: Patient Medication Summary Completed 11/05/2013 Patient Education: Hypertension Completed 11/05/2013 Appointment: Verona Olivares WPtel: [facility] [place] Follow up 10/18/2013 Appointment: Verona Olivares WPtel: [phone] [facility] [place] Follow up 08/07/2013 Visit Plan: Bronchitis - acute case of bronchitis identified. Pt has been given antibiotics, breathing treatments as appropriate, and pt has been instructed to call if symptoms are not improved, or if symptoms acutely worsen. RX sent to patient's pharmacy. 07/17/2013 Appointment: Che Garcia WPtel: [facility] [place] [address] Sick 07/17/2013 Patient Education: Patient Medication Summary [...] allergy spray. 06/07/2013 Appointment: Che Garcia WPtel: [facility]5 [facility] [place] [address] 06/07/2013 Patient Education: Patient Medication Summary Completed [...] current medications. 04/30/2013 Appointment: Verona Olivares WPtel: [phone] [facility] Follow up 04/30/2013 Patient Education: Patient Medication [...] Olivares WPtel: [phone] [facility] Follow up 01/29/2013 Patient Education: Patient Medication [...] Olivares WPtel: [phone] [facility] Follow up 10/30/2012 Patient Education: Patient Medication [...] medications. 07/12/2012 App[facility]ment: [phone] [facility] 07/12/2012 Patient Education: Patient Medication Summary Completed 07/12/2012 Patient Education: High Blood Pressure: Essential Hypertension Completed 07/12/2012 Visit Plan: Hypertension - uncontrolled - the [...] face, maxillary region, Pt informed to use decong estant, RX given to patient, sinus rinses also [...] medications. 06/07/2012 Appointment: Verona [phone] [place] Other 06/07/2012 Patient Education: Patient Medication Summary Completed 06/07/2012 Patient Education: High Blood Pressure: Essential Hypertension Completed 06/07/2012 Appointment: Verona Olivares WPtel: [phone] [facility] Other 05/29/2012 Visit Plan: Hypertension - well [...] be used for cough 12/01/2011 Appointment: Verona Olivraes WPtel: [phone] [facility] Follow up 12/01/2011 Patient Education: Patient Medication Summary Completed 12/01/2011 Patient Education: High Blood Pressure: Essential Hypertension Completed 12/01/2011 Visit Plan: Hypertension - well controlled - [...] change today. 11/18/2011 Appointment: Verona Olivares WPtel: [phone] [facility] Other 11/18/2011 Patient Education: Patient Medication Summary Completed 11/18/2011 Patient Education: High Blood Pressure: Essential Hypertension Completed 11/18/2011 Visit Plan: Hypertension - uncontrolled - the [...] conerns. 11/09/2011 App[facility]ment: [facility]ona [phone] [facility] 11/09/2011 Patient Education: Patient Medication Summary Completed 11/09/2011 Patient Education: High Blood Pressure: Essential Hypertension Completed 11/09/2011 Visit Plan: Restless leg syndrome- start on [...] added salt in the diet. 10/27/2011 Appointment: Marshall Verona [facility]Ptel[phone] [facility] 10/27/2011 Patient Education: Patient Medication Summary Completed 10/27/2011 Patient Education: Restless Legs Syndrome Completed 10/27/2011 Patient Education: Insomnia Completed 10/27/2011 Instructions Comment . Hyperlipidemia - pt has been counseled [...] pt to be used for cough . URI - Pt advised to increase [...] spray in the nasal steroid allergy spray. extended release melatonin you can take up [...] patient. Increase lexapro to 20mg nightly . URI - Pt advised to increase [...] and we discussed different exercise options. . Wuazw-aszfs-leuj aches-patient sent for stat labs and influenza [...] exposure. No change in current medications. . Restless leg [...] to call if symptoms are not improved. Take nexium daily. . Esophageal Reflux - [...] benefits of treament with the above medications. . Bronchitis - acute case of [...] 150/80 level, therefore, no medication change today. . [...] situational exposure. No change in current medications. L-TRYPTOPHAN - MAY HELP AIDE SLEEP.. Insomnia [...]
--- OUTSIDE RECORDS SUMMARY | 2019-03-02 10:36 | XMS REPORT | CCD ---
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 Name Role Phone Verona Olivares PP Unavailable CCM Unavailable Summary Purpose Interface Exchange Insurance Providers Payer name Policy type / Coverage type Covered green party ID Effective Begin Date Effective End Date [facility] [id number] Unknown Family history Mother Diagnosis Age At [...] Currently employed 10/27/[address]: 191382916 Never smoker 10/27/[address]: 830382178 Never drinks alcohol 10/27/2011 Has the patient [...] Start Date Stop Date Status Fill Instructions Augmentin 875 mg-125 mg tablet RxNorm: 345206 1 Tablet(s) PO BID 12/11/2018 12/17/2018 Active prednisone 20 mg tablet RxNorm: 887300 2 Tablet(s) PO daily 12/11/2018 12/13/2018 Active prednisone 20 mg tablet RxNorm: 248224 2 Tablet(s) PO daily 12/11/2018 12/10/2018 Inactive Augmentin 875 mg-125 mg tablet RxNorm: 314864 1 Tablet(s) PO BID 12/11/2018 12/10/2018 Inactive promethazine 6.25 mg-codeine 10 mg/5 mL syrup RxNorm: 149068 5-10 Milliliter(s) PO Q6 PRN 11/24/2018 No Stop Date Active Zithromax Z-Tomás 250 mg tablet RxNorm: 480404 1 Tablet(s) PO UD 11/24/2018 11/28/2018 Inactive Kenalog 40 mg/mL suspension for injection RxNorm: 5564883 Milliliter(s) Inj 11/24/2018 11/24/2018 Inactive lisinopril 10 mg tablet RxNorm: 281111 1 Tablet(s) PO daily 11/14/2018 04/12/2019 Active doxepin 10 mg capsule RxNorm: 7316523 1 Capsule(s) PO QHS as needed insomnia 10/31/2018 01/28/2019 Active Kenalog 40 mg/mL suspension for injection RxNorm: 8252543 Milliliter(s) Inj 09/26/2018 09/26/2018 Inactive Augmentin 875 mg-125 mg tablet RxNorm: 912434 1 Tablet(s) PO BID 09/26/2018 10/05/2018 Inactive escitalopram 20 mg tablet RxNorm: 272203 1 Tablet(s) PO QPM 06/27/2018 01/22/2019 Active lisinopril 10 mg tablet RxNorm: 811519 1 Tablet(s) PO daily 06/21/2018 11/13/2018 Inactive escitalopram 10 mg tablet RxNorm: 047897 1 Tablet(s) PO QPM 05/11/2018 06/26/2018 Inactive lisinopril 10 mg tablet RxNorm: 613836 1 Tablet(s) PO daily 05/11/2018 06/20/2018 Inactive alprazolam 0.5 mg tablet RxNorm: 729603 TAKE ONE-HALF TO ONE TABLET BY MOUTH EVERY 6 HOURS NEEDED 09/20/2017 10/04/2017 Inactive Augmentin 875 mg-125 mg tablet RxNorm: 448333 1 Tablet(s) PO BID 03/08/2017 03/17/2017 Inactive alprazolam 0.5 mg tablet RxNorm: 275530 Tablet(s) PO Q6 as needed TAKE ONE-HALF TO ONE TABLET BY MOUTH EVERY 6 HOURS NEEDED 12/24/2016 01/22/2017 Inactive triamcinolone acetonide 0.5 % topical cream RxNorm: 0236222 1 Application TOP BID 09/06/2016 09/15/2016 Inactive Levaquin 500 mg tablet RxNorm: 640988 1 Tablet(s) PO daily 07/08/2016 07/14/2016 Inactive please call her when ready Levaquin 500 mg tablet RxNorm: 836744 1 Tablet(s) PO daily 07/08/2016 07/07/2016 Inactive alprazolam 0.5 mg tablet RxNorm: 057064 Tablet(s) PO Q6 as needed TAKE ONE-HALF TO ONE TABLET BY MOUTH EVERY 6 HOURS NEEDED 04/26/2016 12/23/2016 Inactive Generic For:*XANAX 0.5 MG TABLET 05/16/2013 1:18:18 PM (Appended: Controlled substance eRx refill - RxReferenceNumber: [id number]) alprazolam 0.5 mg tablet RxNorm: 917393 Tablet(s) PO Q6 as needed TAKE ONE-HALF TO ONE TABLET BY MOUTH EVERY 6 HOURS NEEDED 04/26/2016 09/19/2017 Inactive Generic For:*XANAX 0.5 MG TABLET 05/16/2013 1:18:18 PM (Appended: Controlled substance eRx refill - RxReferenceNumber: [id number]) betamethasone dipropionate 0.05 % topical cream RxNorm: 029586 1 TOP UD 1-2 x per day PRN 01/16/2016 No Stop Date Active Kenalog 40 mg/mL suspension for injection RxNorm: 4612383 Milliliter(s) Inj 01/14/2016 01/14/2016 Inactive prednisone 20 mg tablet RxNorm: 294329 2 Tablet(s) PO daily 01/14/2016 01/18/2016 Inactive alprazolam 0.5 mg tablet RxNorm: 635886 Tablet(s) PO Q6 as needed TAKE ONE-HALF TO ONE TABLET BY MOUTH EVERY 6 HOURS NEEDED 09/26/2015 04/25/2016 Inactive Generic For:*XANAX 0.5 MG TABLET 05/16/2013 1:18:18 PM (Appended: Controlled substance eRx refill - RxReferenceNumber: [id number]) azithromycin 250 mg tablet RxNorm: 963621 1 Tablet(s) PO UD 2 pills day one and 1 pill day 2-5 08/29/2015 09/02/2015 Inactive Keflex 500 mg capsule RxNorm: 027791 1 Capsule(s) PO TID 02/03/2015 02/09/2015 Inactive take a probiotic while on the abt Keflex 500 mg capsule RxNorm: 260789 1 Capsule(s) PO TID 02/03/2015 02/02/2015 Inactive take a probiotic while on the abt hydrocodone 5 mg-acetaminophen 325 mg tablet RxNorm: 377536 1 Tablet(s) PO Q6 PRN 01/27/2015 08/16/2015 Inactive Kenalog 40 mg/mL suspension for injection RxNorm: 0916556 2 Milliliter(s) Inj 05/02/2014 05/02/2014 Inactive Zithromax Z-Tomás 250 mg tablet RxNorm: 367485 1 Tablet(s) PO QPM 05/02/2014 05/06/2014 Inactive Rocephin 500 mg solution for injection RxNorm: 084497 1 Milliliter(s) Inj 05/02/2014 05/02/2014 Inactive metoprolol tartrate 25 mg tablet RxNorm: 144317 1/2 Tablet(s) PO BID TAKE ONE-HALF TABLET BY MOUTH TWICE DAILY 11/05/2013 02/03/2014 Inactive vilazodone 40 mg tablet RxNorm: 8700249 1 Tablet(s) PO daily 08/09/2013 02/03/2014 Inactive Zithromax Z-Tomás 250 mg tablet RxNorm: 369882 Tablet(s) PO 07/17/2013 11/04/2013 Inactive Rocephin 500 mg Solution for Injection RxNorm: 047692 Inj 07/17/2013 07/17/2013 Inactive Kenalog 40 mg/mL Susp for Injection RxNorm: 0611204 1 Milliliter(s) Inj 06/07/2013 06/07/2013 Inactive alprazolam 0.5 mg tablet RxNorm: 473197 1/2-1 Tablet(s) PO Q6 PRN 05/17/2013 No Stop Date Active alprazolam 0.5 mg tablet RxNorm: 170960 Tablet(s) PO TAKE ONE-HALF TO ONE TABLET BY MOUTH EVERY 6 HOURS NEEDED 05/17/2013 09/25/2015 Inactive Generic For:*XANAX 0.5 MG TABLET 05/16/2013 1:18:18 PM (Appended: Controlled substance eRx refill - RxReferenceNumber: [id number]) metoprolol tartrate 25 mg tablet RxNorm: 624642 Tablet(s) PO TAKE ONE-HALF TABLET BY MOUTH TWICE DAILY 02/12/2013 11/04/2013 Inactive metoprolol tartrate 25 mg tablet RxNorm: 162021 1/2 Tablet(s) PO BID 01/29/2013 05/28/2013 Inactive alprazolam 0.5 mg tablet RxNorm: 897281 1/2-1 Tablet(s) PO Q6 PRN 11/28/2012 05/17/2013 Inactive lisinopril 10 mg tablet RxNorm: 335703 1 Tablet(s) PO daily 10/30/2012 01/28/2013 Inactive vilazodone 40 mg tablet RxNorm: 2216306 1 Tablet(s) PO daily 08/08/2012 02/03/2013 Inactive metoprolol tartrate 25 mg tablet RxNorm: 344135 1/2 Tablet(s) PO BID 06/07/2012 10/04/2012 Inactive amoxicillin-potassium clavulanate 500 mg-125 mg tablet RxNorm: 746349 1 Tablet(s) PO TID 06/07/2012 06/13/2012 Inactive Ambien 5 mg tablet RxNorm: 957443 1 Tablet(s) PO HS PRN 05/02/2012 05/31/2012 Inactive lisinopril 10 mg tablet RxNorm: 188227 1 Tablet(s) PO daily 11/09/2011 06/05/2012 Inactive pramipexole 0.5 mg Tab RxNorm: 608899 1/2 Tablet(s) PO QHS 11/01/2011 01/29/2012 Inactive pramipexole 0.5 mg Tab RxNorm: 827398 1 Tablet(s) PO QHS 10/27/2011 10/31/2011 Inactive Fish Oil 1,200 mg-144 mg-216 mg Cap RxNorm: 1 Capsule(s) PO daily No Start Date Active potassium 99 mg Tab RxNorm: 1 Tablet(s) PO daily No Start Date 10/29/2012 Inactive betamethasone dipropionate 0.05 % topical cream RxNorm: 880471 1 TOP UD 1-2 x per day PRN No Start Date 01/15/2016 Inactive alprazolam 0.5 mg tablet RxNorm: 801553 1/2-1 Tablet(s) PO Q6 PRN No Start Date 11/27/2012 Inactive Ambien 5 mg tablet RxNorm: 583796 1 Tablet(s) PO HS PRN No Start Date 05/01/2012 Inactive calcium & magnesium carbonates 311 mg-232 mg Tab RxNorm: 884692 1 Tablet(s) PO BID No Start Date 10/29/2012 Inactive multivitamin Tab RxNorm: 1 Tablet(s) PO daily No Start Date 10/29/2012 Inactive vilazodone 40 mg tablet RxNorm: 2564904 1 Tablet(s) PO daily No Start Date 08/07/2012 Inactive Zithromax Z-Tomás 250 mg tablet RxNorm: 674982 Tablet(s) PO No Start Date 07/16/2013 Inactive Medication Administered Medication Codes Instructions Start Date Status Kenalog 40 mg/mL suspension for injection RxNorm: 7408039 Milliliter 11/24/2018 No longer Active Kenalog 40 mg/mL suspension for injection RxNorm: 5840018 Milliliter 09/26/2018 No longer Active Kenalog 40 mg/mL suspension for injection RxNorm: 6221266 Milliliter 01/14/2016 No longer Active Rocephin 500 mg solution for injection RxNorm: 490049 1Milliliter 05/02/2014 No longer Active Kenalog 40 mg/mL suspension for injection RxNorm: 8181609 2Milliliter 05/02/2014 No longer Active Rocephin 500 mg Solution for Injection RxNorm: 693049 07/17/2013 No longer Active Kenalog 40 mg/mL Susp for Injection RxNorm: 1366233 1Milliliter 06/07/2013 No longer Active Immunizations Vaccine [...] NEC ICD-9: 311 11/05/2013 ESSENTIAL HYPERTENSION SNOMED: 93632545 ICD-9: 401.9 11/05/2013 ACUTE BRONCHITIS ICD-9: 466.0 [...] Item Item Code Result Date Influenza A+B Uev077 Influ A+B Negative 07/08/2016 Cbc With Differential [...] 29.7 pg 07/08/2016 Cbc With Differential Ord2 [place]% 6.8 % 07/08/2016 Cbc With Differential Ord2 MCHC 33.1 pg 07/08/2016 Cbc With Differential Ord2 Eos% 0.0 % 07/08/2016 Cbc With Differential Ord2 PLT 273 K/ul 07/08/2016 Cbc With Differential Ord2 Baso% 0.1 % 07/08/2016 Cbc With Differential Ord2 Neut ABS# 14.08 K/ul 07/08/2016 Cbc With Differential Ord2 RDW 13.6 % 07/08/2016 Cbc With Differential Ord2 Lymph ABS# 1.19 K/ul 07/08/2016 Cbc With Differential Ord2 [place] ABS# 1.1 K/ul 07/08/2016 Cbc With Differential Ord2 Eos ABS# 0.0 K/ul 07/08/2016 Cbc With Differential Ord2 Baso ABS# 0.0 K/ul 07/08/2016 Comp Metabolic Vsz942 NA 134 mEq/L 07/08/2016 Comp Metabolic Xnu252 K 3.9 mEq/L 07/08/2016 Comp Metabolic Ucu880 CL 101 mEq/L 07/08/2016 Comp Metabolic Wui912 CO2 27.0 mEq/L 07/08/2016 Comp Metabolic Idh756 ANION GAP 10 07/08/2016 Comp Metabolic Ybk025 GLUCOSE 120 mg/dL 07/08/2016 Comp Metabolic Kug959 Creat 0.9 mg/dL 07/08/2016 Comp Metabolic Xaf413 eGFR 71 ml/min/1.73m2 07/08/2016 Comp Metabolic Gpk528 BUN 16 mg/dL 07/08/2016 Comp Metabolic Alm250 B/C Ratio 18.4 Ratio 07/08/2016 Comp Metabolic Tiy188 CALCIUM 10.0 mg/dL 07/08/2016 Comp Metabolic Wsg646 ALK PHOS 57 U/L 07/08/2016 Comp Metabolic Nkp675 AST(SGOT) 21 U/L 07/08/2016 Comp Metabolic Mue960 ALT(SGPT) 20 U/L 07/08/2016 Comp Metabolic Npn435 BILI T 1.1 mg/dL 07/08/2016 Comp Metabolic Iye755 ALBUMIN 3.9 g/dL 07/08/2016 Comp Metabolic Bio459 TPRO 6.2 g/dL 07/08/2016 Comp Metabolic Glc614 GLOB 2.4 g/dL 07/08/2016 Comp Metabolic Fyq372 A/G Ratio 1.6 Ratio 07/08/2016 Comp Metabolic Utj649 Osmo 271 mOsmo 07/08/2016 Comp Metabolic Cmr105 NA 130 mEq/L 08/29/2015 Comp Metabolic Eqx309 K 4.0 mEq/L 08/29/2015 Comp Metabolic Vve757 CL 99 mEq/L 08/29/2015 Comp Metabolic Ujb463 CO2 21.0 mEq/L 08/29/2015 Comp Metabolic Mck426 ANION GAP 14 08/29/2015 Comp Metabolic Rpl289 GLUCOSE 105 mg/dL 08/29/2015 Comp Metabolic Mkh475 Creat 1.0 mg/dL 08/29/2015 Comp Metabolic Rsb916 eGFR 62 ml/min/1.73m2 08/29/2015 Comp Metabolic Qnk338 BUN 8 mg/dL 08/29/2015 Comp Metabolic Lag095 B/C Ratio 8.2 Ratio 08/29/2015 Comp Metabolic Ika493 CALCIUM 9.9 mg/dL 08/29/2015 Comp Metabolic Rvr660 ALK PHOS 93 U/L 08/29/2015 Comp Metabolic Gpa620 AST(SGOT) 16 U/L 08/29/2015 Comp Metabolic Itv977 ALT(SGPT) 22 U/L 08/29/2015 Comp Metabolic Uug253 BILI T 0.6 mg/dL 08/29/2015 Comp Metabolic Coj471 ALBUMIN 4.3 g/dL 08/29/2015 Comp Metabolic Pzr645 TPRO 6.7 g/dL 08/29/2015 Comp Metabolic Vro835 GLOB 2.4 g/dL 08/29/2015 Comp Metabolic Day761 A/G Ratio 1.8 Ratio 08/29/2015 Comp Metabolic Fgj083 Osmo 259 mOsmo 08/29/2015 Cbc With Differential [...] CPT-4: J3301 09/26/2018 THER/PROPH/DIAG INJ SC/IM CPT-4: 52718 09/26/2018 IMMUNIZATION ADMIN CPT- 4: 32840 06/27/2018 FLU VAC NO PRSV 4 RAHUL 3 YRS+ Formatting Model/CDA Sections, Assigned to/Juan Zonia CPT-4: 89897Mrmisqx 06/27/2018 IMMUNIZATION ADMIN CPT- 4: 76261 07/30/2016 IIV4 FLU VACC NO PRESERV ID SNOMED CT: 61977737 CPT-4: 08744 07/30/2016 TRIAMCINOLONE ACET INJ NOS CPT-4: J3301 01/14/2016 IMMUNIZATION ADMIN CPT- 4: 16258 07/23/2015 IMMUNIZATION ADMIN EACH ADD CPT-4: 69505 07/23/2015 FLU VACC 4 RAHUL 3 YRS PLUS IM Formatting Model/CDA Sections, Assigned to SNOMED CT: 95061676 CPT-4: 27805Cwasqpz 07/23/2015 THER/PROPH/DIAG INJ SC/IM CPT-4: 28144 05/02/2014 ROCEPHIN, PER 250 MG CPT- 4: J0696 05/02/2014 TRIAMCINOLONE ACET INJ NOS CPT-4: J3301 05/02/2014 ROCEPHIN, PER 250 MG CPT- 4: J0696 07/17/2013 TRIAMCINOLONE ACET INJ NOS CPT-4: J3301 06/07/2013 BIOPSY SKIN LESION CPT- 4: 92775 11/09/2011 Vital Signs Date Vital 11/24/2018 Blood Pressure 1: 122/70 Code: 8480-6 BMI: 32.7 Code: 19144-1 Heart Rate 1: 85 bpm Height: 5'8" SpO2: 98% Temperature: 36.6 (C) / 97.9 (F) Weight: 215 lbs 10/31/2018 Blood Pressure 1: 126/78 Code: 8480-6 BMI: 32.7 Code: 30314-6 Heart Rate 1: 75 bpm Height: 5'8" SpO2: 97% Weight: 215 lbs 09/26/2018 Blood Pressure 1: 130/78 Code: 8480-6 BMI: 32.4 Code: 09827-6 Heart Rate 1: 67 bpm Height: 5'8" SpO2: 97% Temperature: 36.5 (C) / 97.7 (F) Weight: 213 lbs 06/27/2018 Blood Pressure 1: 132/78 Code: 8480-6 BMI: 33.9 Code: 53543-0 Heart Rate 1: 66 bpm Height: 5'8" SpO2: 95% Weight: 223 lbs 05/11/2018 Blood Pressure 1: 140/90 Code: 8480-6 BMI: 33.8 Code: 35350-9 Heart Rate 1: 74 bpm Height: 5'8" SpO2: 98% Weight: 222 lbs 03/08/2017 Blood Pressure 1: 144/86 Code: 8480-6 BMI: 31.2 Code: 62061-1 Heart Rate 1: 70 bpm Height: 5'8" SpO2: 98% Weight: 205 lbs 09/06/2016 Blood Pressure 1: 128/86 Code: 8480-6 BMI: 28.4 Code: 75601-6 Heart Rate 1: 86 bpm Height: 5'8" SpO2: 96% Weight: 187 lbs 07/08/2016 Blood Pressure 1: 120/60 Code: 8480-6 BMI: 28.4 Code: 96972-1 Height: 5'8" Temperature: 37.8 (C) / 100.1 (F) Weight: 187 lbs 01/14/2016 Blood Pressure 1: 152/86 Code: 8480-6 BMI: 30.4 Code: 74821-6 Heart Rate 1: 83 bpm Height: 5'8" SpO2: 97% Weight: 200 lbs 11/17/2015 Blood Pressure 1: 142/90 Code: 8480-6 BMI: 33.9 Code: 54587-3 Heart Rate 1: 75 bpm Height: 5'8" SpO2: 97% Weight: 223 lbs 08/29/2015 BMI: 35.6 Code: 25811-9 Heart Rate 1: 94 bpm Height: 5'8" SpO2: 98% Weight: 234 lbs 01/27/2015 Blood Pressure 1: 140/94 Code: 8480-6 Heart Rate 1: 88 bpm Height: 5'8" SpO2: 98% Weight: 08/05/2014 Blood Pressure 1: 138/82 Code: 8480-6 BMI: 33.6 Code: 02263-9 Heart Rate 1: 76 bpm Height: 5'8" Weight: 221 lbs 05/02/2014 Blood Pressure 1: 142/82 Code: 8480-6 Heart Rate 1: 84 bpm Height: SpO2: 100% Temperature: 37.1 (C) / 98.7 (F) Weight: 02/04/2014 Blood Pressure 1: 108/78 Code: 8480-6 BMI: 36.2 Code: 08852-5 Heart Rate 1: 60 bpm Height: 5'8" Weight: 238 lbs 11/05/2013 Blood Pressure 1: 134/74 Code: 8480-6 BMI: 35.9 Code: 52932-0 Heart Rate 1: 68 bpm Height: 5'8" Weight: 236 lbs 07/17/2013 Blood Pressure 1: 136/88 Code: 8480-6 BMI: 35.9 Code: 13756-4 Heart Rate 1: 72 bpm Height: 5'8" Temperature: 36.4 (C) / 97.6 (F) Weight: 236 lbs 06/07/2013 Blood Pressure 1: 134/92 Code: 8480-6 Heart Rate 1: 72 bpm Temperature: 37.0 (C) / 98.6 (F) Weight: 04/30/2013 Blood Pressure 1: 148/78 Code: 8480-6 BMI: 35.1 Code: 43028-6 Heart Rate 1: 64 bpm Height: 5'8" Weight: 231 lbs 01/29/2013 Blood Pressure 1: 128/84 Code: 8480-6 BMI: 34.4 Code: 46725-3 Heart Rate 1: 76 bpm Height: 5'8" Weight: 226 lbs 10/30/2012 Blood Pressure 1: 118/72 Code: 8480-6 BMI: 33.5 Code: 26606-6 Heart Rate 1: 64 bpm Height: 5'8" Weight: 220 lbs 07/12/2012 Blood Pressure 1: 134/88 Code: 8480-6 Heart Rate 1: 64 bpm Weight: 214 lbs 06/07/2012 Blood Pressure 1: 152/92 Code: 8480-6 Heart Rate 1: 68 bpm Respiratory Rate: 16 bpm Temperature: 36.7 (C) / 98.0 (F) Weight: 209 lbs 12/01/2011 Blood Pressure 1: 140/82 Code: 8480-6 BMI: 29.5 Code: 19747-9 Heart Rate 1: 72 bpm Height: 5'8" [...] 1: 144/90 Code: 8480-6 BMI: 29.3 Code: 29550-2 Heart Rate 1: 76 bpm Height: 5'8" [...] data Encounters Encounter Performer Location Codes Date ([id number]) 03915 EST. PATIENT, LEVEL III Diagnosis: Cough[ICD10: R05] Diagnosis: Acute upper respiratory infection, unspecified[ICD10: J06.9] [facility] CPT-4: 18177 11/24/2018 ([id number]) 71447 EST. PATIENT, LEVEL III Diagnosis: Essential (primary) hypertension[ICD10: I10] Diagnosis: Major depressive disorder, recurrent, moderate[ICD10: F33.1] Diagnosis: Other insomnia[ICD10: G47.09] [facility] CPT-4: 78125 10/31/2018 [id number] EST. PATIENT, LEVEL III Diagnosis: Acute laryngopharyngitis[ICD10: J06.0] Diagnosis: Other allergic rhinitis[ICD10: J30.89] Solange Olivares MD, [facility] CPT- 4: 01612 09/26/2018 ([id number]) 48429 EST. PATIENT, LEVEL III Diagnosis: Essential (primary) hypertension[ICD10: I10] Diagnosis: Major depressive disorder, recurrent, moderate[ICD10: F33.1] Diagnosis: Generalized anxiety disorder[ICD10: F41.1] Diagnosis: Encounter for immunization[ICD10: Z23] Verona Olivares MD, [facility] CPT-4: 78129 06/27/2018 ([id number]) 77017 EST. PATIENT, LEVEL IV Diagnosis: Essential (primary) hypertension[ICD10: I10] Diagnosis: Major depressive disorder, recurrent, moderate[ICD10: F33.1] Diagnosis: Generalized anxiety disorder[ICD10: F41.1] Verona Olivares MD, [facility] CPT-4: 49837 05/11/2018 ([id number]) 76877 EST. PATIENT, LEVEL III Diagnosis: Acute recurrent maxillary sinusitis[ICD10: J01.01] Diagnosis: Other hallucinations[ICD10: R44.2] Diagnosis: Allergic rhinitis due to pollen[ICD10: J30.1] Che Olivares MD, [facility] CPT-4: 27677 03/08/2017 ([id number]) 49034 EST. PATIENT, LEVEL II Diagnosis: Cellulitis of right upper limb[ICD10: L03.113] Che Olivares MD, [facility] CPT-4: 97582 09/06/2016 ([id number]) 07650 EST. PATIENT, LEVEL III Diagnosis: Cough[ICD10: R05] Diagnosis: Fever, unspecified[ICD10: R50.9] Diagnosis: Pain, unspecified[ICD10: R52] Che Olivares MD, [facility] CPT-4: 15011 07/08/2016 25588 EST. PATIENT, LEVEL IV Diagnosis: Rash and other nonspecific skin eruption[ICD10: R21] Solange Olivares MD, [facility] CPT-4: 47284 01/14/2016 ([id number]) 52851 EST. PATIENT, LEVEL III Diagnosis: Pain in left shoulder[ICD10: M25.512] Diagnosis: Pain in right shoulder[ICD10: M25.511] Diagnosis: Bicipital tendinitis, left shoulder[ICD10: M75.22] Che Olivares MD, [facility] CPT-4: 00534 11/17/2015 88675 EST. PATIENT, LEVEL IV Diagnosis: Epigastric pain[ICD10: R10.13] Diagnosis: Acute upper respiratory infection, unspecified[ICD10: J06.9] Solange Olivares MD, [facility] CPT-4: 96963 08/29/2015 ([id number]) 19229 EST. PATIENT, LEVEL III Diagnosis: Left knee pain[ICD9: 719.46] Diagnosis: ACUTE URI[ICD9: 465.9] Diagnosis: ALLERGIC RHINITIS[ICD9: 477.9] Che Olivares MD, [facility] CPT-4: 02511 01/27/2015 ([id number]) 27553 EST. PATIENT, LEVEL III Diagnosis: Elevated blood pressure (not hypertension)[ICD9: 796.2] Diagnosis: Biceps tendinitis[ICD9: 726.12] Diagnosis: Wrist pain, acute[ICD9: 719.43] Verona Olivares MD, [facility] CPT-4: 23114 08/05/2014 ([id number]) 83321 EST. PATIENT, LEVEL III Diagnosis: Acute maxillary sinusitis[ICD9: 461.0] Verona Olivares MD, [facility] CPT-4: 43182 05/02/2014 ([id number]) 11801 EST. PATIENT, LEVEL III Diagnosis: INSOMNIA IN OTHER DIS[ICD9: 327.01] Verona Olivares MD, [facility] CPT- 4: 85687 02/04/2014 ([id number]) 84436 EST. PATIENT, LEVEL III Diagnosis: ESSENTIAL HYPERTENSION[SNOMED: 80669167] Diagnosis: DEPRESSIVE DISORDER NEC[ICD9: 311] Verona Olivares MD, [facility] CPT- 4: 82970 11/05/2013 ([id number]) 95838 EST. PATIENT, LEVEL III Diagnosis: ACUTE BRONCHITIS[ICD9: 466.0] Che Olivares MD, [facility] CPT-4: 60809 07/17/2013 ([id number]) 07136 EST. PATIENT, LEVEL III Diagnosis: ACUTE URI[ICD9: 465.9] Diagnosis: COUGH[ICD9: 786.2] Diagnosis: ALLERGIC RHINITIS[ICD9: 477.9] Che Olivares MD, [facility] CPT-4: 74715 06/07/2013 ([id number]) 52048 EST. PATIENT, LEVEL III Diagnosis: ESSENTIAL HYPERTENSION[SNOMED: 28613330] Diagnosis: DEPRESSIVE DISORDER NEC[ICD9: 311] Verona Olivares MD, [facility] CPT- 4: 36361 04/30/2013 ([id number]) 05747 EST. PATIENT, LEVEL III Diagnosis: ESSENTIAL HYPERTENSION[SNOMED: 43448101] Diagnosis: DEPRESSIVE DISORDER NEC[ICD9: 311] Verona Olivares MD, [facility] CPT- 4: 12016 01/29/2013 ([id number]) 39557 EST. PATIENT, LEVEL IV Diagnosis: ESSENTIAL HYPERTENSION[SNOMED: 41634659] Diagnosis: DEPRESSIVE DISORDER NEC[ICD9: 311] Diagnosis: OBESITY[ICD9: 278.00] Verona Olivares MD, [facility] CPT-4: 57496 10/30/2012 ([id number]) 16003 EST. PATIENT, LEVEL III Diagnosis: ESSENTIAL HYPERTENSION[SNOMED: 42021114] Diagnosis: HYPERLIPIDEMIA[ICD9: 272.4] Diagnosis: DEPRESSIVE DISORDER NEC[ICD9: 311] Verona Olivares MD, [facility] CPT- 4: 81048 07/12/2012 ([id number]) 70809 EST. PATIENT, LEVEL IV Diagnosis: ESSENTIAL HYPERTENSION[SNOMED: 44111292] Diagnosis: DEPRESSIVE DISORDER NEC[ICD9: 311] Diagnosis: Palpitations[ICD9: 785.1] Diagnosis: Acute maxillary sinusitis[ICD9: 461.0] Verona Olivares MD, [facility] CPT-4: 74197 06/07/2012 98846 EST. PATIENT, LEVEL IV Diagnosis: ESSENTIAL HYPERTENSION[SNOMED: 32240305] Diagnosis: COUGH[ICD9: 786.2] Diagnosis: Upper respiratory infection[ICD9: 465.9] Verona Olivares MD, [facility] CPT-4: 33434 12/01/2011 ([id number]) 09608 EST. PATIENT, LEVEL III Diagnosis: ESSENTIAL HYPERTENSION[SNOMED: 06772669] [facility] CPT-4: 29088 11/18/2011 ([id number]) 22850 EST. PATIENT, LEVEL III Diagnosis: ESSENTIAL HYPERTENSION[SNOMED: 05962445] [facility] CPT-4: 78757 11/09/2011 ([id number]) OFFICE VISIT, NEW - LEVEL 4 Diagnosis: Restless leg syndrome[ICD9: 333.94] Diagnosis: INSOMNIA IN OTHER DIS[ICD9: 327.01] Diagnosis: Elevated blood pressure (not hypertension)[ICD9: 796.2] [facility] CPT-4: 28175 10/27/2011 Plan of Care Planned Activity Notes [...] patient's pharmacy. 11/24/2018 Appointment: Che Garcia WPtel: [address] [place], [place] [phone] (15 min) Moderate 11/24/2018 Patient Education: Patient [...] current medications. 10/31/2018 Appointment: Verona Olivares WPtel: [facility] (15 min) Moderate 10/31/2018 Patient Education: Patient [...] allergy spray. 09/26/2018 Appointment: [facility]Ptel[id number] Portal Appointment Requests 09/26/2018 Appointment: Solange Snyder WPtel[facility] (15 min) Moderate 09/26/2018 Patient Education: Patient [...] 20mg nightly 06/27/2018 Appointment: Verona Olivares WPtel: [facility] (15 min) Moderate 06/27/2018 Patient Education: Patient Medication Summary Completed 06/27/2018 Patient Education: Depression Completed 06/27/2018 Appointment: Verona Olivares WPtel: [facility] (15 min) [...] 10mg daily. 05/11/2018 Appointment: Verona Olivares WPtel: [id number] (15 min) Moderate 05/11/2018 Patient Education: Patient [...] not resolve 03/08/2017 Appointment: Che Garcia WPtel: [address] [place] [address] (15 min) Moderate 03/08/2017 Patient Education: Patient [...] of plan. 09/06/2016 Appointment: Che Garcia WPtel: [address] [place], [place] [phone] (15 min) Moderate 09/06/2016 Patient Education: Patient Medication Summary Completed 09/06/2016 Appointment: Injection 07/30/2016 Patient Education: Patient Medication Summary Completed 07/30/2016 Visit Plan: [id number] aches-patient sent for stat labs and influenza swab-will treat as indicated-instructed patient we will call her with the results of her testings-tylenol/motrin as needed for fever, increase po fluids. Patient verbalized understanding of plan. 07/08/2016 Appointment: Che Garcia WPtel: [address] [place], [place] [phone] (15 min) Moderate 07/08/2016 Patient Education: Patient [...] resolve. 01/27/2015 Appointment: [id number] [place] [address] 01/27/2015 Patient Education: Patient Medication Summary Completed [...] blood pressures. 08/05/2014 App[facility]ment[phone] [place] Follow [facility] 08/05/2014 Patient Education: [...] for sleep. 02/04/2014 Appointment: Verona Olivares WPtel: [facility] [place] Follow up 02/04/2014 Patient Education: Patient [...] the antidepressant. 11/05/2013 Appointment: Verona Olivares WPtel: [facility] [place] Follow up 11/05/2013 Patient Education: Patient Medication Summary Completed 11/05/2013 Patient Education: Hypertension Completed 11/05/2013 Appointment: Verona Olivares WPtel: [facility] [place] Follow up 10/18/2013 Appointment: Verona Olivares WPtel: [phone] [facility] [place] Follow up 08/07/2013 Visit Plan: Bronchitis - acute case of bronchitis identified. Pt has been given antibiotics, breathing treatments as appropriate, and pt has been instructed to call if symptoms are not improved, or if symptoms acutely worsen. RX sent to patient's pharmacy. 07/17/2013 Appointment: Che Garcia WPtel: [facility]5 [id number] [place] [address] Sick 07/17/2013 Patient Education: Patient Medication Summary [...] allergy spray. 06/07/2013 Appointment: Che Garcia WPtel: [facility]5 [facility] [place] [address] 06/07/2013 Patient Education: Patient Medication Summary Completed [...] current medications. 04/30/2013 Appointment: Verona Olivares WPtel: [phone] [facility] Follow up 04/30/2013 Patient Education: Patient Medication [...] medications. 07/12/2012 [phone] [facility] 07/12/2012 Patient Education: Patient [...] medications. 06/07/2012 [phone] [place] Other 06/07/2012 Patient Education: Patient Medication Summary Completed 06/07/2012 Patient Education: High Blood Pressure: Essential Hypertension Completed 06/07/2012 Appointment: Verona Olivares WPtel: [phone] [facility] Other 05/29/2012 Visit Plan: Hypertension - well [...] for cough 12/01/2011 Appointment: Verona Olivares WPtel: [phone] [facility] Follow up 12/01/2011 Patient Education: Patient Medication [...] change today. 11/18/2011 Appointment: Verona Olivares WPtel: [phone] [facility] Other 11/18/2011 Patient Education: Patient Medication Summary [...] conerns. 11/09/2011 App[facility]ment: [phone] [facility] 11/09/2011 Patient Education: Patient [...] added salt in the diet. 10/27/2011 Appointment: [place] [phone] [facility] 10/27/2011 Patient Education: Patient [...] exposure. No change in current medications. . [id number] aches-patient sent for stat labs and influenza [...]
[2019-03-02] MEDS: PHENYLEPHRINE 10% OPHTH (NEO-SYN) 5 ML BTL OU SCH ×3 (10:38→10:49)
[2019-03-02] MEDS: CYCLOPENTOLATE 1% (CYCLOGYL) 2 ML DROPS OP SCH ×3 (10:38→10:49)
--- OUTSIDE RECORDS SUMMARY | 2019-03-02 10:38 | XMS REPORT | CCD ---
Author Author Verona Olivares Organization Verona Olivares MD, [facility] Address [address] [place] [address] Phone Care Team Providers Care Census Clerk Name Role Phone Verona Olivares PP Unavailable CCM Unavailable Summary Purpose Interface Exchange Insurance Providers Payer name Policy type / Coverage type Covered constitution party ID Effective Begin Date Effective End Date [facility] [id number] Unknown Family history Mother Diagnosis Age At [...] Currently employed 10/27/[address]: 359269949 Never smoker 10/27/[address]: 126321307 Never drinks alcohol 10/27/2011 Has the patient [...] Start Date Stop Date Status Fill Instructions Zithromax Z-Tomás 250 mg tablet RxNorm: 949333 1 Tablet(s) PO UD 11/24/2018 11/28/2018 Active promethazine 6.25 mg-codeine 10 mg/5 mL syrup RxNorm: 629361 5-10 Milliliter(s) PO Q6 PRN 11/24/2018 No Stop Date Active Kenalog 40 mg/mL suspension for injection RxNorm: 0020503 Milliliter(s) Inj 11/24/2018 11/24/2018 Inactive lisinopril 10 mg tablet RxNorm: 691966 1 Tablet(s) PO daily 11/14/2018 04/12/2019 Active doxepin 10 mg capsule RxNorm: 2965037 1 Capsule(s) PO QHS as needed insomnia 10/31/2018 01/28/2019 Active Kenalog 40 mg/mL suspension for injection RxNorm: 8888109 Milliliter(s) Inj 09/26/2018 09/26/2018 Inactive Augmentin 875 mg-125 mg tablet RxNorm: 817053 1 Tablet(s) PO BID 09/26/2018 10/05/2018 Inactive escitalopram 20 mg tablet RxNorm: 312376 1 Tablet(s) PO QPM 06/27/2018 01/22/2019 Active lisinopril 10 mg tablet RxNorm: 642685 1 Tablet(s) PO daily 06/21/2018 11/13/2018 Inactive escitalopram 10 mg tablet RxNorm: 062508 1 Tablet(s) PO QPM 05/11/2018 06/26/2018 Inactive lisinopril 10 mg tablet RxNorm: 046587 1 Tablet(s) PO daily 05/11/2018 06/20/2018 Inactive alprazolam 0.5 mg tablet RxNorm: 183573 TAKE ONE-HALF TO ONE TABLET BY MOUTH EVERY 6 HOURS NEEDED 09/20/2017 10/04/2017 Inactive Augmentin 875 mg-125 mg tablet RxNorm: 937174 1 Tablet(s) PO BID 03/08/2017 03/17/2017 Inactive alprazolam 0.5 mg tablet RxNorm: 776611 Tablet(s) PO Q6 as needed TAKE ONE-HALF TO ONE TABLET BY MOUTH EVERY 6 HOURS NEEDED 12/24/2016 01/22/2017 Inactive triamcinolone acetonide 0.5 % topical cream RxNorm: 0286186 1 Application TOP BID 09/06/2016 09/15/2016 Inactive Levaquin 500 mg tablet RxNorm: 618887 1 Tablet(s) PO daily 07/08/2016 07/14/2016 Inactive please call her when ready Levaquin 500 mg tablet RxNorm: 584143 1 Tablet(s) PO daily 07/08/2016 07/07/2016 Inactive alprazolam 0.5 mg tablet RxNorm: 590580 Tablet(s) PO Q6 as needed TAKE ONE-HALF TO ONE TABLET BY MOUTH EVERY 6 HOURS NEEDED 04/26/2016 12/23/2016 Inactive Generic For:*XANAX 0.5 MG TABLET 05/16/2013 1:18:18 PM (Appended: Controlled substance eRx refill - RxReferenceNumber: [id number]) alprazolam 0.5 mg tablet RxNorm: 721071 Tablet(s) PO Q6 as needed TAKE ONE-HALF TO ONE TABLET BY MOUTH EVERY 6 HOURS NEEDED 04/26/2016 09/19/2017 Inactive Generic For:*XANAX 0.5 MG TABLET 05/16/2013 1:18:18 PM (Appended: Controlled substance eRx refill - RxReferenceNumber: [id number]) betamethasone dipropionate 0.05 % topical cream RxNorm: 299248 1 TOP UD 1-2 x per day PRN 01/16/2016 No Stop Date Active Kenalog 40 mg/mL suspension for injection RxNorm: 4253678 Milliliter(s) Inj 01/14/2016 01/14/2016 Inactive prednisone 20 mg tablet RxNorm: 443939 2 Tablet(s) PO daily 01/14/2016 01/18/2016 Inactive alprazolam 0.5 mg tablet RxNorm: 520469 Tablet(s) PO Q6 as needed TAKE ONE-HALF TO ONE TABLET BY MOUTH EVERY 6 HOURS NEEDED 09/26/2015 04/25/2016 Inactive Generic For:*XANAX 0.5 MG TABLET 05/16/2013 1:18:18 PM (Appended: Controlled substance eRx refill - RxReferenceNumber: [id number]) azithromycin 250 mg tablet RxNorm: 316380 1 Tablet(s) PO UD 2 pills day one and 1 pill day 2-5 08/29/2015 09/02/2015 Inactive Keflex 500 mg capsule RxNorm: 189305 1 Capsule(s) PO TID 02/03/2015 02/09/2015 Inactive take a probiotic while on the abt Keflex 500 mg capsule RxNorm: 851265 1 Capsule(s) PO TID 02/03/2015 02/02/2015 Inactive take a probiotic while on the abt hydrocodone 5 mg-acetaminophen 325 mg tablet RxNorm: 079766 1 Tablet(s) PO Q6 PRN 01/27/2015 08/16/2015 Inactive Kenalog 40 mg/mL suspension for injection RxNorm: 6034672 2 Milliliter(s) Inj 05/02/2014 05/02/2014 Inactive Zithromax Z-Tomás 250 mg tablet RxNorm: 216975 1 Tablet(s) PO QPM 05/02/2014 05/06/2014 Inactive Rocephin 500 mg solution for injection RxNorm: 504853 1 Milliliter(s) Inj 05/02/2014 05/02/2014 Inactive metoprolol tartrate 25 mg tablet RxNorm: 356217 1/2 Tablet(s) PO BID TAKE ONE-HALF TABLET BY MOUTH TWICE DAILY 11/05/2013 02/03/2014 Inactive vilazodone 40 mg tablet RxNorm: 0295353 1 Tablet(s) PO daily 08/09/2013 02/03/2014 Inactive Zithromax Z-Tomás 250 mg tablet RxNorm: 572188 Tablet(s) PO 07/17/2013 11/04/2013 Inactive Rocephin 500 mg Solution for Injection RxNorm: 375714 Inj 07/17/2013 07/17/2013 Inactive Kenalog 40 mg/mL Susp for Injection RxNorm: 5925771 1 Milliliter(s) Inj 06/07/2013 06/07/2013 Inactive alprazolam 0.5 mg tablet RxNorm: 633294 1/2-1 Tablet(s) PO Q6 PRN 05/17/2013 No Stop Date Active alprazolam 0.5 mg tablet RxNorm: 211143 Tablet(s) PO TAKE ONE-HALF TO ONE TABLET BY MOUTH EVERY 6 HOURS NEEDED 05/17/2013 09/25/2015 Inactive Generic For:*XANAX 0.5 MG TABLET 05/16/2013 1:18:18 PM (Appended: Controlled substance eRx refill - RxReferenceNumber: [id number]) metoprolol tartrate 25 mg tablet RxNorm: 586382 Tablet(s) PO TAKE ONE-HALF TABLET BY MOUTH TWICE DAILY 02/12/2013 11/04/2013 Inactive metoprolol tartrate 25 mg tablet RxNorm: 363437 1/2 Tablet(s) PO BID 01/29/2013 05/28/2013 Inactive alprazolam 0.5 mg tablet RxNorm: 741866 1/2-1 Tablet(s) PO Q6 PRN 11/28/2012 05/17/2013 Inactive lisinopril 10 mg tablet RxNorm: 984701 1 Tablet(s) PO daily 10/30/2012 01/28/2013 Inactive vilazodone 40 mg tablet RxNorm: 4406229 1 Tablet(s) PO daily 08/08/2012 02/03/2013 Inactive metoprolol tartrate 25 mg tablet RxNorm: 065037 1/2 Tablet(s) PO BID 06/07/2012 10/04/2012 Inactive amoxicillin-potassium clavulanate 500 mg-125 mg tablet RxNorm: 514806 1 Tablet(s) PO TID 06/07/2012 06/13/2012 Inactive Ambien 5 mg tablet RxNorm: 635224 1 Tablet(s) PO HS PRN 05/02/2012 05/31/2012 Inactive lisinopril 10 mg tablet RxNorm: 451445 1 Tablet(s) PO daily 11/09/2011 06/05/2012 Inactive pramipexole 0.5 mg Tab RxNorm: 639767 1/2 Tablet(s) PO QHS 11/01/2011 01/29/2012 Inactive pramipexole 0.5 mg Tab RxNorm: 741692 1 Tablet(s) PO QHS 10/27/2011 10/31/2011 Inactive Fish Oil 1,200 mg-144 mg-216 mg Cap RxNorm: 1 Capsule(s) PO daily No Start Date Active potassium 99 mg Tab RxNorm: 1 Tablet(s) PO daily No Start Date 10/29/2012 Inactive betamethasone dipropionate 0.05 % topical cream RxNorm: 782524 1 TOP UD 1-2 x per day PRN No Start Date 01/15/2016 Inactive alprazolam 0.5 mg tablet RxNorm: 919585 1/2-1 Tablet(s) PO Q6 PRN No Start Date 11/27/2012 Inactive Ambien 5 mg tablet RxNorm: 239866 1 Tablet(s) PO HS PRN No Start Date 05/01/2012 Inactive calcium & magnesium carbonates 311 mg-232 mg Tab RxNorm: 418359 1 Tablet(s) PO BID No Start Date 10/29/2012 Inactive multivitamin Tab RxNorm: 1 Tablet(s) PO daily No Start Date 10/29/2012 Inactive vilazodone 40 mg tablet RxNorm: 7104186 1 Tablet(s) PO daily No Start Date 08/07/2012 Inactive Zithromax Z-Tomás 250 mg tablet RxNorm: 400410 Tablet(s) PO No Start Date 07/16/2013 Inactive Medication Administered Medication Codes Instructions Start Date Status Kenalog 40 mg/mL suspension for injection RxNorm: 2502632 Milliliter 11/24/2018 No longer Active Kenalog 40 mg/mL suspension for injection RxNorm: 1447329 Milliliter 09/26/2018 No longer Active Kenalog 40 mg/mL suspension for injection RxNorm: 1018287 Milliliter 01/14/2016 No longer Active Kenalog 40 mg/mL suspension for injection RxNorm: 5044802 2Milliliter 05/02/2014 No longer Active Rocephin 500 mg solution for injection RxNorm: 871557 1Milliliter 05/02/2014 No longer Active Rocephin 500 mg Solution for Injection RxNorm: 645894 07/17/2013 No longer Active Kenalog 40 mg/mL Susp for Injection RxNorm: 4946185 1Milliliter 06/07/2013 No longer Active Immunizations Vaccine [...] FOR INFLUENZA ICD-10: Z23 ICD-9: V04.81 07/30/2016 Fever, unspecified ICD-10: R50.9 ICD-9: 780.60 07/08/2016 Pain, unspecified ICD-10: R52 ICD-9: 780.96 07/08/2016 Rash and other nonspecific skin eruption [...] 01/27/2015 Left knee pain ICD-9: 719.46 01/27/2015 Biceps tendinitis ICD-9: 726.12 08/05/2014 Wrist pain, acute ICD-9: 719.43 08/05/2014 Elevated blood pressure (not hypertension) ICD-9: 796.2 08/05/2014 Acute maxillary sinusitis ICD-9: 461.0 05/02/2014 INSOMNIA IN OTHER DIS ICD-9: 327.01 02/04/2014 DEPRESSIVE DISORDER NEC ICD-9: 311 11/05/2013 ESSENTIAL HYPERTENSION SNOMED: 51159847 ICD-9: 401.9 11/05/2013 ACUTE BRONCHITIS ICD-9: 466.0 [...] Item Item Code Result Date Influenza A+B Ecm275 Influ A+B Negative 07/08/2016 Cbc With Differential Ord2 WBC 16.40 K/ul 07/08/2016 Cbc With Differential Ord2 RBC 4.01 M/ul 07/08/2016 Cbc With Differential Ord2 HGB 11.9 g/dl 07/08/2016 Cbc With Differential Ord2 Neut% 85.8 % 07/08/2016 Cbc With Differential Ord2 HCT 35.9 % 07/08/2016 Cbc With Differential Ord2 MCV 89.5 fl 07/08/2016 Cbc With Differential Ord2 Lymph% 7.3 % 07/08/2016 Cbc With Differential Ord2 MCH 29.7 pg 07/08/2016 Cbc With Differential Ord2 [place]% 6.8 % 07/08/2016 Cbc With Differential Ord2 Eos% 0.0 % 07/08/2016 Cbc With Differential Ord2 MCHC 33.1 pg 07/08/2016 Cbc With Differential Ord2 PLT 273 K/ul 07/08/2016 Cbc With Differential Ord2 Baso% 0.1 % 07/08/2016 Cbc With Differential Ord2 Neut ABS# 14.08 K/ul 07/08/2016 Cbc With Differential Ord2 RDW 13.6 % 07/08/2016 Cbc With Differential Ord2 Lymph ABS# 1.19 K/ul 07/08/2016 Cbc With Differential Ord2 [place] ABS# 1.1 K/ul 07/08/2016 Cbc With Differential Ord2 Eos ABS# 0.0 K/ul 07/08/2016 Cbc With Differential Ord2 Baso ABS# 0.0 K/ul 07/08/2016 Comp Metabolic Ldl522 NA 134 mEq/L 07/08/2016 Comp Metabolic Rtb072 K 3.9 mEq/L 07/08/2016 Comp Metabolic Rux878 CL 101 mEq/L 07/08/2016 Comp Metabolic Gxp380 CO2 27.0 mEq/L 07/08/2016 Comp Metabolic Tvx987 ANION GAP 10 07/08/2016 Comp Metabolic Ufz025 GLUCOSE 120 mg/dL 07/08/2016 Comp Metabolic Zjs594 Creat 0.9 mg/dL 07/08/2016 Comp Metabolic Xah655 eGFR 71 ml/min/1.73m2 07/08/2016 Comp Metabolic Xey694 BUN 16 mg/dL 07/08/2016 Comp Metabolic Oyc959 B/C Ratio 18.4 Ratio 07/08/2016 Comp Metabolic Rws656 CALCIUM 10.0 mg/dL 07/08/2016 Comp Metabolic Rnh734 ALK PHOS 57 U/L 07/08/2016 Comp Metabolic Zim015 AST(SGOT) 21 U/L 07/08/2016 Comp Metabolic Vyr142 ALT(SGPT) 20 U/L 07/08/2016 Comp Metabolic Pal129 BILI T 1.1 mg/dL 07/08/2016 Comp Metabolic Aaq663 ALBUMIN 3.9 g/dL 07/08/2016 Comp Metabolic Hah433 TPRO 6.2 g/dL 07/08/2016 Comp Metabolic Ctv805 GLOB 2.4 g/dL 07/08/2016 Comp Metabolic Ecz572 A/G Ratio 1.6 Ratio 07/08/2016 Comp Metabolic Niz357 Osmo 271 mOsmo 07/08/2016 Comp Metabolic Qzx555 NA 130 mEq/L 08/29/2015 Comp Metabolic Cez392 K 4.0 mEq/L 08/29/2015 Comp Metabolic Xsp248 CL 99 mEq/L 08/29/2015 Comp Metabolic Oct140 CO2 21.0 mEq/L 08/29/2015 Comp Metabolic Ypb086 ANION GAP 14 08/29/2015 Comp Metabolic Ljk224 GLUCOSE 105 mg/dL 08/29/2015 Comp Metabolic Ugi020 Creat 1.0 mg/dL 08/29/2015 Comp Metabolic Ava911 eGFR 62 ml/min/1.73m2 08/29/2015 Comp Metabolic Nuh498 BUN 8 mg/dL 08/29/2015 Comp Metabolic Meq934 B/C Ratio 8.2 Ratio 08/29/2015 Comp Metabolic Vtq633 CALCIUM 9.9 mg/dL 08/29/2015 Comp Metabolic Smn637 ALK PHOS 93 U/L 08/29/2015 Comp Metabolic Rzu271 AST(SGOT) 16 U/L 08/29/2015 Comp Metabolic Zrf296 ALT(SGPT) 22 U/L 08/29/2015 Comp Metabolic Dzz659 BILI T 0.6 mg/dL 08/29/2015 Comp Metabolic Kvk325 ALBUMIN 4.3 g/dL 08/29/2015 Comp Metabolic Tvc421 TPRO 6.7 g/dL 08/29/2015 Comp Metabolic Ady797 GLOB 2.4 g/dL 08/29/2015 Comp Metabolic Fai014 A/G Ratio 1.8 Ratio 08/29/2015 Comp Metabolic Frl447 Osmo 259 mOsmo 08/29/2015 Cbc With Differential [...] General 1994 Eyes conjunctiva/eyelids Overall: conjunctiva clear 07/17/2013 None [...] 1995 Ears/Nose/Throat oral cavity/pharynx/larynx Overall: no masses 01/29/2013 [...] intact 10/30/2012 None Full Exam - General 1995 [...] General 1994 Neck thyroid Overall: normal size 10/27/2011 None Full Exam - General 1994 Neck thyroid Overall: no mass lesions 10/27/2011 None Full Exam - General 1994 Respiratory respiratory effort/rhythm Overall: normal rate 10/27/2011 None Full Exam - General 1995 Psychiatric mood and affect Overall: normal mood and affect 10/27/2011 None Full Exam - General 1995 Psychiatric orientation/consciousness Overall: oriented to person, place and time 10/27/2011 None Full Exam - General 1995 Neurologic [...] CPT-4: J3301 09/26/2018 THER/PROPH/DIAG INJ SC/IM CPT-4: 60696 09/26/2018 IMMUNIZATION ADMIN CPT- 4: 51268 06/27/2018 FLU VAC NO PRSV 4 RAHUL 3 YRS+ Formatting Model/CDA Sections, Assigned to/Zonia Martinez CPT-4: 71044Eztxzlg 06/27/2018 IMMUNIZATION ADMIN CPT- 4: 27740 07/30/2016 IIV4 FLU VACC NO PRESERV ID SNOMED CT: 71270028 CPT-4: 69884 07/30/2016 TRIAMCINOLONE ACET INJ NOS CPT-4: J3301 01/14/2016 IMMUNIZATION ADMIN CPT- 4: 16966 07/23/2015 IMMUNIZATION ADMIN EACH ADD CPT-4: 84145 07/23/2015 FLU VACC 4 RAHUL 3 YRS PLUS IM Formatting Model/CDA Sections, Assigned to SNOMED CT: 13286474 CPT-4: 58822Zyhrqgl 07/23/2015 THER/PROPH/DIAG INJ SC/IM CPT-4: 90700 05/02/2014 ROCEPHIN, PER 250 MG CPT- 4: J0696 05/02/2014 TRIAMCINOLONE ACET INJ NOS CPT-4: J3301 05/02/2014 ROCEPHIN, PER 250 MG CPT- 4: J0696 07/17/2013 TRIAMCINOLONE ACET INJ NOS CPT-4: J3301 06/07/2013 BIOPSY SKIN LESION CPT- 4: 47224 11/09/2011 Vital Signs Date Vital 11/24/2018 Blood Pressure 1: 122/70 Code: 8480-6 BMI: 32.7 Code: 24387-4 Heart Rate 1: 85 bpm Height: 5'8" SpO2: 98% Temperature: 36.6 (C) / 97.9 (F) Weight: 215 lbs 10/31/2018 Blood Pressure 1: 126/78 Code: 8480-6 BMI: 32.7 Code: 36538-0 Heart Rate 1: 75 bpm Height: 5'8" SpO2: 97% Weight: 215 lbs 09/26/2018 Blood Pressure 1: 130/78 Code: 8480-6 BMI: 32.4 Code: 07282-0 Heart Rate 1: 67 bpm Height: 5'8" SpO2: 97% Temperature: 36.5 (C) / 97.7 (F) Weight: 213 lbs 06/27/2018 Blood Pressure 1: 132/78 Code: 8480-6 BMI: 33.9 Code: 91680-8 Heart Rate 1: 66 bpm Height: 5'8" SpO2: 95% Weight: 223 lbs 05/11/2018 Blood Pressure 1: 140/90 Code: 8480-6 BMI: 33.8 Code: 51758-0 Heart Rate 1: 74 bpm Height: 5'8" SpO2: 98% Weight: 222 lbs 03/08/2017 Blood Pressure 1: 144/86 Code: 8480-6 BMI: 31.2 Code: 57864-3 Heart Rate 1: 70 bpm Height: 5'8" SpO2: 98% Weight: 205 lbs 09/06/2016 Blood Pressure 1: 128/86 Code: 8480-6 BMI: 28.4 Code: 92739-4 Heart Rate 1: 86 bpm Height: 5'8" SpO2: 96% Weight: 187 lbs 07/08/2016 Blood Pressure 1: 120/60 Code: 8480-6 BMI: 28.4 Code: 53252-1 Height: 5'8" Temperature: 37.8 (C) / 100.1 (F) Weight: 187 lbs 01/14/2016 Blood Pressure 1: 152/86 Code: 8480-6 BMI: 30.4 Code: 50787-5 Heart Rate 1: 83 bpm Height: 5'8" SpO2: 97% Weight: 200 lbs 11/17/2015 Blood Pressure 1: 142/90 Code: 8480-6 BMI: 33.9 Code: 82143-5 Heart Rate 1: 75 bpm Height: 5'8" SpO2: 97% Weight: 223 lbs 08/29/2015 BMI: 35.6 Code: 17295-2 Heart Rate 1: 94 bpm Height: 5'8" SpO2: 98% Weight: 234 lbs 01/27/2015 Blood Pressure 1: 140/94 Code: 8480-6 Heart Rate 1: 88 bpm Height: 5'8" SpO2: 98% Weight: 08/05/2014 Blood Pressure 1: 138/82 Code: 8480-6 BMI: 33.6 Code: 00575-8 Heart Rate 1: 76 bpm Height: 5'8" Weight: 221 lbs 05/02/2014 Blood Pressure 1: 142/82 Code: 8480-6 Heart Rate 1: 84 bpm Height: SpO2: 100% Temperature: 37.1 (C) / 98.7 (F) Weight: 02/04/2014 Blood Pressure 1: 108/78 Code: 8480-6 BMI: 36.2 Code: 09991-0 Heart Rate 1: 60 bpm Height: 5'8" Weight: 238 lbs 11/05/2013 Blood Pressure 1: 134/74 Code: 8480-6 BMI: 35.9 Code: 55277-8 Heart Rate 1: 68 bpm Height: 5'8" Weight: 236 lbs 07/17/2013 Blood Pressure 1: 136/88 Code: 8480-6 BMI: 35.9 Code: 19370-0 Heart Rate 1: 72 bpm Height: 5'8" Temperature: 36.4 (C) / 97.6 (F) Weight: 236 lbs 06/07/2013 Blood Pressure 1: 134/92 Code: 8480-6 Heart Rate 1: 72 bpm Temperature: 37.0 (C) / 98.6 (F) Weight: 04/30/2013 Blood Pressure 1: 148/78 Code: 8480-6 BMI: 35.1 Code: 81824-6 Heart Rate 1: 64 bpm Height: 5'8" Weight: 231 lbs 01/29/2013 Blood Pressure 1: 128/84 Code: 8480-6 BMI: 34.4 Code: 86950-7 Heart Rate 1: 76 bpm Height: 5'8" Weight: 226 lbs 10/30/2012 Blood Pressure 1: 118/72 Code: 8480-6 BMI: 33.5 Code: 47031-6 Heart Rate 1: 64 bpm Height: 5'8" Weight: 220 lbs 07/12/2012 Blood Pressure 1: 134/88 Code: 8480-6 Heart Rate 1: 64 bpm Weight: 214 lbs 06/07/2012 Blood Pressure 1: 152/92 Code: 8480-6 Heart Rate 1: 68 bpm Respiratory Rate: 16 bpm Temperature: 36.7 (C) / 98.0 (F) Weight: 209 lbs 12/01/2011 Blood Pressure 1: 140/82 Code: 8480-6 BMI: 29.5 Code: 47287-4 Heart Rate 1: 72 bpm Height: 5'8" [...] 1: 144/90 Code: 8480-6 BMI: 29.3 Code: 35580-9 Heart Rate 1: 76 bpm Height: 5'8" [...] data Encounters Encounter Performer Location Codes Date ([id number]) [id number] EST. PATIENT, LEVEL III Diagnosis: Cough[ICD10: R05] Diagnosis: Acute upper respiratory infection, unspecified[ICD10: J06.9] Che Olivares MD, [facility] CPT-4: 58531 11/24/2018 [id number]) 91006 EST. PATIENT, LEVEL III Diagnosis: Essential (primary) hypertension[ICD10: I10] Diagnosis: Major depressive disorder, recurrent, moderate[ICD10: F33.1] Diagnosis: Other insomnia[ICD10: G47.09] [facility] CPT-4: 14064 10/31/2018 58052 EST. PATIENT, LEVEL III Diagnosis: Acute laryngopharyngitis[ICD10: J06.0] Diagnosis: Other allergic rhinitis[ICD10: J30.89] [facility] CPT- 4: 00047 09/26/2018 [id number]) 11245 EST. PATIENT, LEVEL III Diagnosis: Essential (primary) hypertension[ICD10: I10] Diagnosis: Major depressive disorder, recurrent, moderate[ICD10: F33.1] Diagnosis: Generalized anxiety disorder[ICD10: F41.1] Diagnosis: Encounter for immunization[ICD10: Z23] [facility] CPT-4: 09839 06/27/2018 ([id number]) 94942 EST. PATIENT, LEVEL IV Diagnosis: Essential (primary) hypertension[ICD10: I10] Diagnosis: Major depressive disorder, recurrent, moderate[ICD10: F33.1] Diagnosis: Generalized anxiety disorder[ICD10: F41.1] Verona Olivares MD, [facility] CPT-4: 16460 05/11/2018 ([id number]) 32045 EST. PATIENT, LEVEL III Diagnosis: Acute recurrent maxillary sinusitis[ICD10: J01.01] Diagnosis: Other hallucinations[ICD10: R44.2] Diagnosis: Allergic rhinitis due to pollen[ICD10: J30.1] Che Olivares MD, [facility] CPT-4: 48354 03/08/2017 ([id number]) 51022 EST. PATIENT, LEVEL II Diagnosis: Cellulitis of right upper limb[ICD10: L03.113] Che Olivares MD, [facility] CPT-4: 37703 09/06/2016 ([id number]) 80173 EST. PATIENT, LEVEL III Diagnosis: Cough[ICD10: R05] Diagnosis: Fever, unspecified[ICD10: R50.9] Diagnosis: Pain, unspecified[ICD10: R52] Che Olivares MD, [facility] CPT-4: 66406 07/08/2016 07447 EST. PATIENT, LEVEL IV Diagnosis: Rash and other nonspecific skin eruption[ICD10: R21] Solange Olivares MD, [facility] CPT-4: 62671 01/14/2016 ([id number]) 04910 EST. PATIENT, LEVEL III Diagnosis: Pain in left shoulder[ICD10: M25.512] Diagnosis: Pain in right shoulder[ICD10: M25.511] Diagnosis: Bicipital tendinitis, left shoulder[ICD10: M75.22] Che Olivares MD, [facility] CPT-4: 75328 11/17/2015 00085 EST. PATIENT, LEVEL IV Diagnosis: Epigastric pain[ICD10: R10.13] Diagnosis: Acute upper respiratory infection, unspecified[ICD10: J06.9] Solange Olivares MD, [facility] CPT-4: 44364 08/29/2015 ([id number]) 81683 EST. PATIENT, LEVEL III Diagnosis: Left knee pain[ICD9: 719.46] Diagnosis: ACUTE URI[ICD9: 465.9] Diagnosis: ALLERGIC RHINITIS[ICD9: 477.9] Che Olivares MD, [facility] CPT-4: 01129 01/27/2015 ([id number]) 81619 EST. PATIENT, LEVEL III Diagnosis: Elevated blood pressure (not hypertension)[ICD9: 796.2] Diagnosis: Biceps tendinitis[ICD9: 726.12] Diagnosis: Wrist pain, acute[ICD9: 719.43] Verona Olivares MD, [facility] CPT-4: 16507 08/05/2014 ([id number]) 69753 EST. PATIENT, LEVEL III Diagnosis: Acute maxillary sinusitis[ICD9: 461.0] Verona Olivares MD, [facility] CPT-4: 29376 05/02/2014 ([id number]) 34249 EST. PATIENT, LEVEL III Diagnosis: INSOMNIA IN OTHER DIS[ICD9: 327.01] Verona Olivares MD, [facility] CPT- 4: 68308 02/04/2014 ([id number]) 21594 EST. PATIENT, LEVEL III Diagnosis: ESSENTIAL HYPERTENSION[SNOMED: 26556394] Diagnosis: DEPRESSIVE DISORDER NEC[ICD9: 311] Verona Olivares MD, [facility] CPT- 4: 69152 11/05/2013 ([id number]) 38496 EST. PATIENT, LEVEL III Diagnosis: ACUTE BRONCHITIS[ICD9: 466.0] Che Olivares MD, [facility] CPT-4: 62386 07/17/2013 ([id number]) 64745 EST. PATIENT, LEVEL III Diagnosis: ACUTE URI[ICD9: 465.9] Diagnosis: COUGH[ICD9: 786.2] Diagnosis: ALLERGIC RHINITIS[ICD9: 477.9] Che Olivares MD, [facility] CPT-4: 80698 06/07/2013 ([id number]) 96304 EST. PATIENT, LEVEL III Diagnosis: ESSENTIAL HYPERTENSION[SNOMED: 04901238] Diagnosis: DEPRESSIVE DISORDER NEC[ICD9: 311] Verona Olivares MD, [facility] CPT- 4: 32749 04/30/2013 ([id number]) 62081 EST. PATIENT, LEVEL III Diagnosis: ESSENTIAL HYPERTENSION[SNOMED: 35034182] Diagnosis: DEPRESSIVE DISORDER NEC[ICD9: 311] Verona Olivares MD [facility] CPT- 4: 58614 01/29/2013 ([id number]) 84553 EST. PATIENT, LEVEL IV Diagnosis: ESSENTIAL HYPERTENSION[SNOMED: 62561611] Diagnosis: DEPRESSIVE DISORDER NEC[ICD9: 311] Diagnosis: OBESITY[ICD9: 278.00] Verona Olivares MD [facility] CPT-4: 08293 10/30/2012 ([id number]) 45446 EST. PATIENT, LEVEL III Diagnosis: ESSENTIAL HYPERTENSION[SNOMED: 28821790] Diagnosis: HYPERLIPIDEMIA[ICD9: 272.4] Diagnosis: DEPRESSIVE DISORDER NEC[ICD9: 311] Verona Olivares MD [facility] CPT- 4: 65813 07/12/2012 ([id number]) 16105 EST. PATIENT, LEVEL IV Diagnosis: ESSENTIAL HYPERTENSION[SNOMED: 10212981] Diagnosis: DEPRESSIVE DISORDER NEC[ICD9: 311] Diagnosis: Palpitations[ICD9: 785.1] Diagnosis: Acute maxillary sinusitis[ICD9: 461.0] Verona Olivares MD [facility] CPT-4: 00106 06/07/2012 11063 EST. PATIENT, LEVEL IV Diagnosis: ESSENTIAL HYPERTENSION[SNOMED: 56055209] Diagnosis: COUGH[ICD9: 786.2] Diagnosis: Upper respiratory infection[ICD9: 465.9] Verona Olivares MD [facility] CPT-4: 61931 12/01/2011 ([id number]) 86993 EST. PATIENT, LEVEL III Diagnosis: ESSENTIAL HYPERTENSION[SNOMED: 38812535] Verona Olivares MD [facility] CPT-4: 54386 11/18/2011 ([id number]) 33426 EST. PATIENT, LEVEL III Diagnosis: ESSENTIAL HYPERTENSION[SNOMED: 56643540] Verona Olivares MD [facility] CPT-4: 63470 11/09/2011 ([id number]) OFFICE VISIT, NEW - LEVEL 4 Diagnosis: Restless leg syndrome[ICD9: 333.94] Diagnosis: INSOMNIA IN OTHER DIS[ICD9: 327.01] Diagnosis: Elevated blood pressure (not hypertension)[ICD9: 796.2] [facility] CPT-4: 92094 10/27/2011 Plan of Care Planned Activity Notes [...] patient's pharmacy. 11/24/2018 Appointment: Che Garcia WPtel: [phone] (15 min) Moderate 11/24/2018 Patient Education: Patient [...] current medications. 10/31/2018 Appointment: Verona Olivares WPtel: [facility] [place] (15 min) Moderate 10/31/2018 Patient [...] allergy spray. 09/26/2018 Appointment: Che Garcia WPtel: [phone] Portal Appointment Requests 09/26/2018 Appointment: oSlange Snyder WPtel: [facility]9 [facility] (15 min) Moderate 09/26/2018 Patient Education: Patient [...] 20mg nightly 06/27/2018 Appointment: Verona Olivares WPtel: [facility] (15 min) Moderate 06/27/2018 Patient Education: Patient Medication Summary Completed 06/27/2018 Patient Education: Depression Completed 06/27/2018 Appointment: Verona Olivares WPtel:[phone] [facility] (15 min) Moderate 06/07/2018 Visit Plan: [...] daily. 05/11/2018 Appointment: Verona Olivares WPtel: [phone] [facility] (15 min) Moderate 05/11/2018 Patient Education: [...] not resolve 03/08/2017 Appointment: Che Garcia WPtel: [phone] [place] (15 min) Moderate 03/08/2017 Patient Education: Patient [...] of plan. 09/06/2016 App[facility]ment: [phone] (15 min) Moderate 09/06/2016 Patient Education: Patient Medication Summary Completed 09/06/2016 Appointment: Injection 07/30/2016 Patient Education: Patient Medication Summary Completed 07/30/2016 Visit Plan: Goqnk-uvzlf-jokk aches-patient sent for stat labs and influenza swab-will treat as indicated-instructed patient we will call her with the results of her testings-tylenol/motrin as needed for fever, increase po fluids. Patient verbalized understanding of plan. 07/08/2016 App[facility]ment: [phone] (15 min) Moderate 07/08/2016 Patient Education: Patient [...] completely resolve. 01/27/2015 Appointment: [phone] [place] [address] Sick 01/27/2015 Patient Education: Patient Medication Summary [...] blood pressures. 08/05/2014 [phone] [facility] 08/05/2014 Patient Education: Patient [...] for sleep. 02/04/2014 Appointment: Verona Olivares WPtel: [facility]8 [facility] Follow up 02/04/2014 Patient Education: Patient [...] the antidepressant. 11/05/2013 Appointment: Verona Olivares WPtel: [facility]5 [facility] Follow up 11/05/2013 Patient Education: Patient Medication Summary Completed 11/05/2013 Patient Education: Hypertension Completed 11/05/2013 Appointment: Verona Olivares WPtel: [facility] Follow up 10/18/2013 Appointment: Verona Olivares WPtel: [address] [place], [place] [id number] Follow up 08/07/2013 Visit Plan: Bronchitis - acute case of bronchitis identified. Pt has been given antibiotics, breathing treatments as appropriate, and pt has been instructed to call if symptoms are not improved, or if symptoms acutely worsen. RX sent to patient's pharmacy. 07/17/2013 Appointment: Che Garcia WPtel: [phone] [facility] 07/17/2013 Patient Education: Patient Medication [...] allergy spray. 06/07/2013 Appointment: Che Garcia WPtel: [phone] [phone] [facility] 06/07/2013 Patient Education: Patient Medication [...] medications. 04/30/2013 Appointment: [phone] [facility] 04/30/2013 Patient Education: Patient [...] current medications. 01/29/2013 App[facility]ment[phone] [facility] 01/29/2013 Patient Education: Patient [...] exercise options. 10/30/2012 Appointment: Verona Olivares WPtel: [phone] [facility] Follow up 10/30/2012 Patient Education: Patient [...] medications. 07/12/2012 App[facility]ment[phone] [facility] 07/12/2012 Patient Education: Patient [...] above medications. 06/07/2012 Appointment: Verona Olivares WPtel: [address] [place] [address] Other 06/07/2012 Patient Education: Patient Medication Summary Completed 06/07/2012 Patient Education: High Blood Pressure: Essential Hypertension Completed 06/07/2012 Appointment: Verona Olivares WPtel: [address] [place] [address] Other 05/29/2012 Visit Plan: Hypertension - well [...] for cough 12/01/2011 Appointment: Verona Olivares WPtel: [facility] [address] Follow up 12/01/2011 Patient Education: Patient [...] change today. 11/18/2011 Appointment: Verona Olivares WPtel: [phone] [facility] Other 11/18/2011 Patient Education: Patient Medication [...] acute conerns. 11/09/2011 Appointment: [phone] [facility] 11/09/2011 Patient Education: Patient [...] the diet. 10/27/2011 Appointment: Marshall Verona [facility]Ptel[phone] [place] New Patient 10/27/2011 Patient Education: Patient Medication Summary Completed 10/27/2011 Patient Education: Restless Legs Syndrome Completed 10/27/2011 Patient Education: Insomnia Completed 10/27/2011 Instructions Comment . URI-cough - Pt advised to increase [...] of treament with the above medications. . URI - Pt advised to [...] contolled - no change in current medications. tiger balm aleve 2 tabs twice daily [...] any worse. RX sent to patient's pharmacy. extended release [...] spray in the nasal steroid allergy spray. L-TRYPTOPHAN - MAY HELP AIDE SLEEP.. Insomnia - Pt has been advised to increase the light in the house during the day, and start dimming the lights during the evening hours. Pt has been advised to cut out caffiene after 5pm. Daytime napping worsens night time insomnia. Pt states that melatonin did not help, alprazolam did not help- therefore recommended L-tryptophan for sleep. . Hypertension - uncontrolled - the patient [...] pt is tapered off of the antidepressant. Pt to use voltaren gel 2 grams [...] infection-call if symptoms do not resolve . Rjbma-ijvrv-oogm aches-patient sent for stat labs and influenza swab-will treat as indicated-instructed patient we will call her with the results of her testings-tylenol/motrin as needed for fever, increase po fluids. Patient verbalized understanding of plan. CONTINUE ANTI INFLAMMATORIES DIRECTED TAKE PAIN MEDICATION [...] patient. Start on Lexapro 10mg daily. . Restless leg syndrome- start on mirapex [...]
--- OUTSIDE RECORDS SUMMARY | 2019-03-02 10:41 | XMS REPORT | CCD ---
Author Author Verona Olivares Organization Verona Olivares MD, [facility] Address [address] [place] [address] Phone Care Team Providers [employer] Super[employer] Name Role Phone Verona Olivares PP Unavailable CCM Unavailable Summary Purpose Interface Exchange Insurance Providers Payer name Policy type / Coverage type Covered libertarian ID Effective Begin Date Effective End Date [facility] [id number] Unknown Family history Mother Diagnosis Age At [...] Currently employed 10/27/[address]: 450225388 Never smoker 10/27/[address]: 542258254 Never drinks alcohol 10/27/2011 Has the patient [...] Instructions Zithromax Z-Tomás 250 mg tablet RxNorm: 573755 1 Tablet(s) PO UD 11/24/2018 11/28/2018 Active promethazine 6.25 mg-codeine 10 mg/5 mL syrup RxNorm: 618270 5-10 Milliliter(s) PO Q6 PRN 11/24/2018 No Stop Date Active Kenalog 40 mg/mL suspension for injection RxNorm: 3226967 Milliliter(s) Inj 11/24/2018 11/24/2018 Inactive lisinopril 10 mg tablet RxNorm: 827118 1 Tablet(s) PO daily 11/14/2018 04/12/2019 Active doxepin 10 mg capsule RxNorm: 0703464 1 Capsule(s) PO QHS as needed insomnia 10/31/2018 01/28/2019 Active Kenalog 40 mg/mL suspension for injection RxNorm: 1798645 Milliliter(s) Inj 09/26/2018 09/26/2018 Inactive Augmentin 875 mg-125 mg tablet RxNorm: 560545 1 Tablet(s) PO BID 09/26/2018 10/05/2018 Inactive escitalopram 20 mg tablet RxNorm: 099801 1 Tablet(s) PO QPM 06/27/2018 01/22/2019 Active lisinopril 10 mg tablet RxNorm: 207822 1 Tablet(s) PO daily 06/21/2018 11/13/2018 Inactive escitalopram 10 mg tablet RxNorm: 077233 1 Tablet(s) PO QPM 05/11/2018 06/26/2018 Inactive lisinopril 10 mg tablet RxNorm: 635414 1 Tablet(s) PO daily 05/11/2018 06/20/2018 Inactive alprazolam 0.5 mg tablet RxNorm: 865890 TAKE ONE-HALF TO ONE TABLET BY MOUTH EVERY 6 HOURS NEEDED 09/20/2017 10/04/2017 Inactive Augmentin 875 mg-125 mg tablet RxNorm: 656323 1 Tablet(s) PO BID 03/08/2017 03/17/2017 Inactive alprazolam 0.5 mg tablet RxNorm: 614034 Tablet(s) PO Q6 as needed TAKE ONE-HALF TO ONE TABLET BY MOUTH EVERY 6 HOURS NEEDED 12/24/2016 01/22/2017 Inactive triamcinolone acetonide 0.5 % topical cream RxNorm: 0954045 1 Application TOP BID 09/06/2016 09/15/2016 Inactive Levaquin 500 mg tablet RxNorm: 988276 1 Tablet(s) PO daily 07/08/2016 07/14/2016 Inactive please call her when ready Levaquin 500 mg tablet RxNorm: 133133 1 Tablet(s) PO daily 07/08/2016 07/07/2016 Inactive alprazolam 0.5 mg tablet RxNorm: 003907 Tablet(s) PO Q6 as needed TAKE ONE-HALF TO ONE TABLET BY MOUTH EVERY 6 HOURS NEEDED 04/26/2016 12/23/2016 Inactive Generic For:*XANAX 0.5 MG TABLET 05/16/2013 1:18:18 PM (Appended: Controlled substance eRx refill - RxReferenceNumber: [id number]) alprazolam 0.5 mg tablet RxNorm: 689671 Tablet(s) PO Q6 as needed TAKE ONE-HALF TO ONE TABLET BY MOUTH EVERY 6 HOURS NEEDED 04/26/2016 09/19/2017 Inactive Generic For:*XANAX 0.5 MG TABLET 05/16/2013 1:18:18 PM (Appended: Controlled substance eRx refill - RxReferenceNumber: [id number]) betamethasone dipropionate 0.05 % topical cream RxNorm: 912494 1 TOP UD 1-2 x per day PRN 01/16/2016 No Stop Date Active Kenalog 40 mg/mL suspension for injection RxNorm: 1342928 Milliliter(s) Inj 01/14/2016 01/14/2016 Inactive prednisone 20 mg tablet RxNorm: 093517 2 Tablet(s) PO daily 01/14/2016 01/18/2016 Inactive alprazolam 0.5 mg tablet RxNorm: 523073 Tablet(s) PO Q6 as needed TAKE ONE-HALF TO ONE TABLET BY MOUTH EVERY 6 HOURS NEEDED 09/26/2015 04/25/2016 Inactive Generic For:*XANAX 0.5 MG TABLET 05/16/2013 1:18:18 PM (Appended: Controlled substance eRx refill - RxReferenceNumber: [id number]) azithromycin 250 mg tablet RxNorm: 003814 1 Tablet(s) PO UD 2 pills day one and 1 pill day 2-5 08/29/2015 09/02/2015 Inactive Keflex 500 mg capsule RxNorm: 427481 1 Capsule(s) PO TID 02/03/2015 02/09/2015 Inactive take a probiotic while on the abt Keflex 500 mg capsule RxNorm: 546929 1 Capsule(s) PO TID 02/03/2015 02/02/2015 Inactive take a probiotic while on the abt hydrocodone 5 mg-acetaminophen 325 mg tablet RxNorm: 981363 1 Tablet(s) PO Q6 PRN 01/27/2015 08/16/2015 Inactive Kenalog 40 mg/mL suspension for injection RxNorm: 0068250 2 Milliliter(s) Inj 05/02/2014 05/02/2014 Inactive Zithromax Z-Tomás 250 mg tablet RxNorm: 088198 1 Tablet(s) PO QPM 05/02/2014 05/06/2014 Inactive Rocephin 500 mg solution for injection RxNorm: 745654 1 Milliliter(s) Inj 05/02/2014 05/02/2014 Inactive metoprolol tartrate 25 mg tablet RxNorm: 677853 1/2 Tablet(s) PO BID TAKE ONE-HALF TABLET BY MOUTH TWICE DAILY 11/05/2013 02/03/2014 Inactive vilazodone 40 mg tablet RxNorm: 9720504 1 Tablet(s) PO daily 08/09/2013 02/03/2014 Inactive Zithromax Z-Tomás 250 mg tablet RxNorm: 538300 Tablet(s) PO 07/17/2013 11/04/2013 Inactive Rocephin 500 mg Solution for Injection RxNorm: 442986 Inj 07/17/2013 07/17/2013 Inactive Kenalog 40 mg/mL Susp for Injection RxNorm: 5175966 1 Milliliter(s) Inj 06/07/2013 06/07/2013 Inactive alprazolam 0.5 mg tablet RxNorm: 172014 1/2-1 Tablet(s) PO Q6 PRN 05/17/2013 No Stop Date Active alprazolam 0.5 mg tablet RxNorm: 114043 Tablet(s) PO TAKE ONE-HALF TO ONE TABLET BY MOUTH EVERY 6 HOURS NEEDED 05/17/2013 09/25/2015 Inactive Generic For:*XANAX 0.5 MG TABLET 05/16/2013 1:18:18 PM (Appended: Controlled substance eRx refill - RxReferenceNumber: [id number]) metoprolol tartrate 25 mg tablet RxNorm: 215873 Tablet(s) PO TAKE ONE-HALF TABLET BY MOUTH TWICE DAILY 02/12/2013 11/04/2013 Inactive metoprolol tartrate 25 mg tablet RxNorm: 632253 1/2 Tablet(s) PO BID 01/29/2013 05/28/2013 Inactive alprazolam 0.5 mg tablet RxNorm: 159121 1/2-1 Tablet(s) PO Q6 PRN 11/28/2012 05/17/2013 Inactive lisinopril 10 mg tablet RxNorm: 962188 1 Tablet(s) PO daily 10/30/2012 01/28/2013 Inactive vilazodone 40 mg tablet RxNorm: 4535882 1 Tablet(s) PO daily 08/08/2012 02/03/2013 Inactive metoprolol tartrate 25 mg tablet RxNorm: 231436 1/2 Tablet(s) PO BID 06/07/2012 10/04/2012 Inactive amoxicillin-potassium clavulanate 500 mg-125 mg tablet RxNorm: 208922 1 Tablet(s) PO TID 06/07/2012 06/13/2012 Inactive Ambien 5 mg tablet RxNorm: 784400 1 Tablet(s) PO HS PRN 05/02/2012 05/31/2012 Inactive lisinopril 10 mg tablet RxNorm: 847600 1 Tablet(s) PO daily 11/09/2011 06/05/2012 Inactive pramipexole 0.5 mg Tab RxNorm: 688622 1/2 Tablet(s) PO QHS 11/01/2011 01/29/2012 Inactive pramipexole 0.5 mg Tab RxNorm: 456963 1 Tablet(s) PO QHS 10/27/2011 10/31/2011 Inactive Fish Oil 1,200 mg-144 mg-216 mg Cap RxNorm: 1 Capsule(s) PO daily No Start Date Active potassium 99 mg Tab RxNorm: 1 Tablet(s) PO daily No Start Date 10/29/2012 Inactive betamethasone dipropionate 0.05 % topical cream RxNorm: 231776 1 TOP UD 1-2 x per day PRN No Start Date 01/15/2016 Inactive alprazolam 0.5 mg tablet RxNorm: 924650 1/2-1 Tablet(s) PO Q6 PRN No Start Date 11/27/2012 Inactive Ambien 5 mg tablet RxNorm: 829049 1 Tablet(s) PO HS PRN No Start Date 05/01/2012 Inactive calcium & magnesium carbonates 311 mg-232 mg Tab RxNorm: 288783 1 Tablet(s) PO BID No Start Date 10/29/2012 Inactive multivitamin Tab RxNorm: 1 Tablet(s) PO daily No Start Date 10/29/2012 Inactive vilazodone 40 mg tablet RxNorm: 2946521 1 Tablet(s) PO daily No Start Date 08/07/2012 Inactive Zithromax Z-Tomás 250 mg tablet RxNorm: 712081 Tablet(s) PO No Start Date 07/16/2013 Inactive Medication Administered Medication Codes Instructions Start Date Status Kenalog 40 mg/mL suspension for injection RxNorm: 6702587 Milliliter 11/24/2018 Active Kenalog 40 mg/mL suspension for injection RxNorm: 2593620 Milliliter 09/26/2018 No longer Active Kenalog 40 mg/mL suspension for injection RxNorm: 7005919 Milliliter 01/14/2016 No longer Active Rocephin 500 mg solution for injection RxNorm: 235954 1Milliliter 05/02/2014 No longer Active Kenalog 40 mg/mL suspension for injection RxNorm: 3061783 2Milliliter 05/02/2014 No longer Active Rocephin 500 mg Solution for Injection RxNorm: 597590 07/17/2013 No longer Active Kenalog 40 mg/mL Susp for Injection RxNorm: 2361158 1Milliliter 06/07/2013 No longer Active Immunizations Vaccine [...] NEC ICD-9: 311 11/05/2013 ESSENTIAL HYPERTENSION SNOMED: 74716929 ICD-9: 401.9 11/05/2013 ACUTE BRONCHITIS ICD-9: 466.0 [...] Item Item Code Result Date Influenza A+B [id number] Influ A+B Negative 07/08/2016 Cbc With Differential [...] 29.7 pg 07/08/2016 Cbc With Differential Ord2 Cassia% 6.8 % 07/08/2016 Cbc With Differential Ord2 MCHC 33.1 pg 07/08/2016 Cbc With Differential Ord2 Eos% 0.0 % 07/08/2016 Cbc With Differential Ord2 Baso% 0.1 % 07/08/2016 Cbc With Differential Ord2 PLT 273 K/ul 07/08/2016 Cbc With Differential Ord2 Neut ABS# 14.08 K/ul 07/08/2016 Cbc With Differential Ord2 RDW 13.6 % 07/08/2016 Cbc With Differential Ord2 Lymph ABS# 1.19 K/ul 07/08/2016 Cbc With Differential Ord2 Cassia ABS# 1.1 K/ul 07/08/2016 Cbc With Differential Ord2 Eos ABS# 0.0 K/ul 07/08/2016 Cbc With Differential Ord2 Baso ABS# 0.0 K/ul 07/08/2016 Comp Metabolic Byy921 NA 134 mEq/L 07/08/2016 Comp Metabolic Nfg379 K 3.9 mEq/L 07/08/2016 Comp Metabolic Emz236 CL 101 mEq/L 07/08/2016 Comp Metabolic Svr142 CO2 27.0 mEq/L 07/08/2016 Comp Metabolic Rcd697 ANION GAP 10 07/08/2016 Comp Metabolic Vdv482 GLUCOSE 120 mg/dL 07/08/2016 Comp Metabolic Btf489 Creat 0.9 mg/dL 07/08/2016 Comp Metabolic Ynd645 eGFR 71 ml/min/1.73m2 07/08/2016 Comp Metabolic Xhx211 BUN 16 mg/dL 07/08/2016 Comp Metabolic Sny856 B/C Ratio 18.4 Ratio 07/08/2016 Comp Metabolic Hun352 CALCIUM 10.0 mg/dL 07/08/2016 Comp Metabolic Rex094 ALK PHOS 57 U/L 07/08/2016 Comp Metabolic Zbn109 AST(SGOT) 21 U/L 07/08/2016 Comp Metabolic Exe109 ALT(SGPT) 20 U/L 07/08/2016 Comp Metabolic Aht022 BILI T 1.1 mg/dL 07/08/2016 Comp Metabolic Pzr117 ALBUMIN 3.9 g/dL 07/08/2016 Comp Metabolic Onj565 TPRO 6.2 g/dL 07/08/2016 Comp Metabolic Kpw693 GLOB 2.4 g/dL 07/08/2016 Comp Metabolic Axk164 A/G Ratio 1.6 Ratio 07/08/2016 Comp Metabolic Hib949 Osmo 271 mOsmo 07/08/2016 Comp Metabolic Tnb783 NA 130 mEq/L 08/29/2015 Comp Metabolic Oty182 K 4.0 mEq/L 08/29/2015 Comp Metabolic Ojc400 CL 99 mEq/L 08/29/2015 Comp Metabolic Krk639 CO2 21.0 mEq/L 08/29/2015 Comp Metabolic Mmm697 ANION GAP 14 08/29/2015 Comp Metabolic Gcd605 GLUCOSE 105 mg/dL 08/29/2015 Comp Metabolic Ryu458 Creat 1.0 mg/dL 08/29/2015 Comp Metabolic Bxr260 eGFR 62 ml/min/1.73m2 08/29/2015 Comp Metabolic Itv735 BUN 8 mg/dL 08/29/2015 Comp Metabolic Mpu271 B/C Ratio 8.2 Ratio 08/29/2015 Comp Metabolic Kym570 CALCIUM 9.9 mg/dL 08/29/2015 Comp Metabolic Brp599 ALK PHOS 93 U/L 08/29/2015 Comp Metabolic Xlh149 AST(SGOT) 16 U/L 08/29/2015 Comp Metabolic Iiq160 ALT(SGPT) 22 U/L 08/29/2015 Comp Metabolic Ihg157 BILI T 0.6 mg/dL 08/29/2015 Comp Metabolic Weu379 ALBUMIN 4.3 g/dL 08/29/2015 Comp Metabolic Yuv096 TPRO 6.7 g/dL 08/29/2015 Comp Metabolic Rzh872 GLOB 2.4 g/dL 08/29/2015 Comp Metabolic Wvz686 A/G Ratio 1.8 Ratio 08/29/2015 Comp Metabolic Rpk772 Osmo 259 mOsmo 08/29/2015 Cbc With Differential [...] clear 02/04/2014 None Full Exam - General 1995 Ears/Nose/Throat oral cavity/pharynx/larynx Overall: oral mucosa clear 02/04/2014 None Full Exam - General 1995 Ears/Nose/Throat [...] clubbing 04/30/2013 None Full Exam - General 1995 Cardiovascular auscultation of heart Overall: regular rate 04/30/2013 None Full Exam - General 1994 Cardiovascular auscultation of heart Overall: normal heart sounds 04/30/2013 None Full Exam - General 1994 Cardiovascular auscultation of heart Overall: no murmurs 04/30/2013 None Full Exam - General 1995 Musculoskeletal [...] atraumatic 01/29/2013 None Full Exam - General 1995 Musculoskeletal [...] disease 06/07/2012 None Full Exam - General 1995 Musculoskeletal head and neck Overall: head atraumatic 06/07/2012 None Full Exam - General 1995 Musculoskeletal [...] masses 06/07/2012 None Full Exam - General 1995 Neck thyroid Overall: normal size 06/07/2012 None [...] CPT-4: J3301 09/26/2018 THER/PROPH/DIAG INJ SC/IM CPT-4: 57850 09/26/2018 IMMUNIZATION ADMIN CPT- 4: 80473 06/27/2018 FLU VAC NO PRSV 4 RAHUL 3 YRS+ Formatting Model/CDA Sections, Assigned to/Zonia Martinez CPT-4: [id number] 06/27/2018 IMMUNIZATION ADMIN CPT- 4: 69251 07/30/2016 IIV4 FLU VACC NO PRESERV ID SNOMED CT: 00830749 CPT-4: 87437 07/30/2016 TRIAMCINOLONE ACET INJ NOS CPT-4: J3301 01/14/2016 IMMUNIZATION ADMIN CPT- 4: 08611 07/23/2015 IMMUNIZATION ADMIN EACH ADD CPT-4: 58951 07/23/2015 FLU VACC 4 RAHUL 3 YRS PLUS IM Formatting Model/CDA Sections, Assigned to SNOMED CT: 65537756 CPT-4: 90541Zywkodl 07/23/2015 THER/PROPH/DIAG INJ SC/IM CPT-4: 37963 05/02/2014 ROCEPHIN, PER 250 MG CPT- 4: J0696 05/02/2014 TRIAMCINOLONE ACET INJ NOS CPT-4: J3301 05/02/2014 ROCEPHIN, PER 250 MG CPT- 4: J0696 07/17/2013 TRIAMCINOLONE ACET INJ NOS CPT-4: J3301 06/07/2013 BIOPSY SKIN LESION CPT- 4: 98876 11/09/2011 Vital Signs Date Vital 11/24/2018 Blood Pressure 1: 122/70 Code: 8480-6 BMI: 32.7 Code: 00384-7 Heart Rate 1: 85 bpm Height: 5'8" SpO2: 98% Temperature: 36.6 (C) / 97.9 (F) Weight: 215 lbs 10/31/2018 Blood Pressure 1: 126/78 Code: 8480-6 BMI: 32.7 Code: 48333-7 Heart Rate 1: 75 bpm Height: 5'8" SpO2: 97% Weight: 215 lbs 09/26/2018 Blood Pressure 1: 130/78 Code: 8480-6 BMI: 32.4 Code: 77526-5 Heart Rate 1: 67 bpm Height: 5'8" SpO2: 97% Temperature: 36.5 (C) / 97.7 (F) Weight: 213 lbs 06/27/2018 Blood Pressure 1: 132/78 Code: 8480-6 BMI: 33.9 Code: 83467-9 Heart Rate 1: 66 bpm Height: 5'8" SpO2: 95% Weight: 223 lbs 05/11/2018 Blood Pressure 1: 140/90 Code: 8480-6 BMI: 33.8 Code: 16607-6 Heart Rate 1: 74 bpm Height: 5'8" SpO2: 98% Weight: 222 lbs 03/08/2017 Blood Pressure 1: 144/86 Code: 8480-6 BMI: 31.2 Code: 64768-6 Heart Rate 1: 70 bpm Height: 5'8" SpO2: 98% Weight: 205 lbs 09/06/2016 Blood Pressure 1: 128/86 Code: 8480-6 BMI: 28.4 Code: 53275-7 Heart Rate 1: 86 bpm Height: 5'8" SpO2: 96% Weight: 187 lbs 07/08/2016 Blood Pressure 1: 120/60 Code: 8480-6 BMI: 28.4 Code: 72178-2 Height: 5'8" Temperature: 37.8 (C) / 100.1 (F) Weight: 187 lbs 01/14/2016 Blood Pressure 1: 152/86 Code: 8480-6 BMI: 30.4 Code: 84966-1 Heart Rate 1: 83 bpm Height: 5'8" SpO2: 97% Weight: 200 lbs 11/17/2015 Blood Pressure 1: 142/90 Code: 8480-6 BMI: 33.9 Code: 33854-6 Heart Rate 1: 75 bpm Height: 5'8" SpO2: 97% Weight: 223 lbs 08/29/2015 BMI: 35.6 Code: 15783-0 Heart Rate 1: 94 bpm Height: 5'8" SpO2: 98% Weight: 234 lbs 01/27/2015 Blood Pressure 1: 140/94 Code: 8480-6 Heart Rate 1: 88 bpm Height: 5'8" SpO2: 98% Weight: 08/05/2014 Blood Pressure 1: 138/82 Code: 8480-6 BMI: 33.6 Code: 15902-7 Heart Rate 1: 76 bpm Height: 5'8" Weight: 221 lbs 05/02/2014 Blood Pressure 1: 142/82 Code: 8480-6 Heart Rate 1: 84 bpm Height: SpO2: 100% Temperature: 37.1 (C) / 98.7 (F) Weight: 02/04/2014 Blood Pressure 1: 108/78 Code: 8480-6 BMI: 36.2 Code: 73358-3 Heart Rate 1: 60 bpm Height: 5'8" Weight: 238 lbs 11/05/2013 Blood Pressure 1: 134/74 Code: 8480-6 BMI: 35.9 Code: 53877-9 Heart Rate 1: 68 bpm Height: 5'8" Weight: 236 lbs 07/17/2013 Blood Pressure 1: 136/88 Code: 8480-6 BMI: 35.9 Code: 51855-1 Heart Rate 1: 72 bpm Height: 5'8" Temperature: 36.4 (C) / 97.6 (F) Weight: 236 lbs 06/07/2013 Blood Pressure 1: 134/92 Code: 8480-6 Heart Rate 1: 72 bpm Temperature: 37.0 (C) / 98.6 (F) Weight: 04/30/2013 Blood Pressure 1: 148/78 Code: 8480-6 BMI: 35.1 Code: 42253-2 Heart Rate 1: 64 bpm Height: 5'8" Weight: 231 lbs 01/29/2013 Blood Pressure 1: 128/84 Code: 8480-6 BMI: 34.4 Code: 78882-2 Heart Rate 1: 76 bpm Height: 5'8" Weight: 226 lbs 10/30/2012 Blood Pressure 1: 118/72 Code: 8480-6 BMI: 33.5 Code: 68313-4 Heart Rate 1: 64 bpm Height: 5'8" Weight: 220 lbs 07/12/2012 Blood Pressure 1: 134/88 Code: 8480-6 Heart Rate 1: 64 bpm Weight: 214 lbs 06/07/2012 Blood Pressure 1: 152/92 Code: 8480-6 Heart Rate 1: 68 bpm Respiratory Rate: 16 bpm Temperature: 36.7 (C) / 98.0 (F) Weight: 209 lbs 12/01/2011 Blood Pressure 1: 140/82 Code: 8480-6 BMI: 29.5 Code: 59600-0 Heart Rate 1: 72 bpm Height: 5'8" [...] 1: 144/90 Code: 8480-6 BMI: 29.3 Code: 82526-9 Heart Rate 1: 76 bpm Height: 5'8" [...] data Encounters Encounter Performer Location Codes Date ([id number]) 91421 EST. PATIENT, LEVEL III Diagnosis: Cough[ICD10: R05] Diagnosis: Acute upper respiratory infection, unspecified[ICD10: J06.9] Che Olivares MD, [facility] CPT-4: 33005 11/24/2018 [id number]) 14029 EST. PATIENT, LEVEL III Diagnosis: Essential (primary) hypertension[ICD10: I10] Diagnosis: Major depressive disorder, recurrent, moderate[ICD10: F33.1] Diagnosis: Other insomnia[ICD10: G47.09] [facility] CPT-4: 70009 10/31/2018 10369 EST. PATIENT, LEVEL III Diagnosis: Acute laryngopharyngitis[ICD10: J06.0] Diagnosis: Other allergic rhinitis[ICD10: J30.89] [facility] CPT- 4: 78645 09/26/2018 [id number]) 37838 EST. PATIENT, LEVEL III Diagnosis: Essential (primary) hypertension[ICD10: I10] Diagnosis: Major depressive disorder, recurrent, moderate[ICD10: F33.1] Diagnosis: Generalized anxiety disorder[ICD10: F41.1] Diagnosis: Encounter for immunization[ICD10: Z23] Verona Olivares MD, [facility] CPT-4: 09707 06/27/2018 ([id number]) 35801 EST. PATIENT, LEVEL IV Diagnosis: Essential (primary) hypertension[ICD10: I10] Diagnosis: Major depressive disorder, recurrent, moderate[ICD10: F33.1] Diagnosis: Generalized anxiety disorder[ICD10: F41.1] Verona Olivares MD, [facility] CPT-4: 85738 05/11/2018 ([id number]) 02056 EST. PATIENT, LEVEL III Diagnosis: Acute recurrent maxillary sinusitis[ICD10: J01.01] Diagnosis: Other hallucinations[ICD10: R44.2] Diagnosis: Allergic rhinitis due to pollen[ICD10: J30.1] Che Olivares MD, [facility] CPT-4: 26880 03/08/2017 ([id number]) 00543 EST. PATIENT, LEVEL II Diagnosis: Cellulitis of right upper limb[ICD10: L03.113] Che Olivares MD, [facility] CPT-4: 65481 09/06/2016 ([id number]) 32393 EST. PATIENT, LEVEL III Diagnosis: Cough[ICD10: R05] Diagnosis: Fever, unspecified[ICD10: R50.9] Diagnosis: Pain, unspecified[ICD10: R52] Che Olivares MD, [facility] CPT-4: 89817 07/08/2016 08784 EST. PATIENT, LEVEL IV Diagnosis: Rash and other nonspecific skin eruption[ICD10: R21] Solange Olivares MD, [facility] CPT-4: 90447 01/14/2016 ([id number]) 07414 EST. PATIENT, LEVEL III Diagnosis: Pain in left shoulder[ICD10: M25.512] Diagnosis: Pain in right shoulder[ICD10: M25.511] Diagnosis: Bicipital tendinitis, left shoulder[ICD10: M75.22] Che Olivares MD, [facility] CPT-4: 54515 11/17/2015 15178 EST. PATIENT, LEVEL IV Diagnosis: Epigastric pain[ICD10: R10.13] Diagnosis: Acute upper respiratory infection, unspecified[ICD10: J06.9] Solange Olivares MD, [facility] CPT-4: 51979 08/29/2015 ([id number]) 16975 EST. PATIENT, LEVEL III Diagnosis: Left knee pain[ICD9: 719.46] Diagnosis: ACUTE URI[ICD9: 465.9] Diagnosis: ALLERGIC RHINITIS[ICD9: 477.9] Che Olivares MD, [facility] CPT-4: 17438 01/27/2015 ([id number]) 73138 EST. PATIENT, LEVEL III Diagnosis: Elevated blood pressure (not hypertension)[ICD9: 796.2] Diagnosis: Biceps tendinitis[ICD9: 726.12] Diagnosis: Wrist pain, acute[ICD9: 719.43] Verona Olivares MD, [facility] CPT-4: 24492 08/05/2014 ([id number]) 41332 EST. PATIENT, LEVEL III Diagnosis: Acute maxillary sinusitis[ICD9: 461.0] Verona Olivares MD, [facility] CPT-4: 93719 05/02/2014 ([id number]) 40419 EST. PATIENT, LEVEL III Diagnosis: INSOMNIA IN OTHER DIS[ICD9: 327.01] Verona Olivares MD, [facility] CPT- 4: 02315 02/04/2014 ([id number]) 86777 EST. PATIENT, LEVEL III Diagnosis: ESSENTIAL HYPERTENSION[SNOMED: 52973293] Diagnosis: DEPRESSIVE DISORDER NEC[ICD9: 311] Verona Olivares MD, [facility] CPT- 4: 63141 11/05/2013 ([id number]) 95724 EST. PATIENT, LEVEL III Diagnosis: ACUTE BRONCHITIS[ICD9: 466.0] Che Olivares MD, [facility] CPT-4: 59679 07/17/2013 ([id number]) 66384 EST. PATIENT, LEVEL III Diagnosis: ACUTE URI[ICD9: 465.9] Diagnosis: COUGH[ICD9: 786.2] Diagnosis: ALLERGIC RHINITIS[ICD9: 477.9] Che Olivares MD, [facility] CPT-4: 85731 06/07/2013 ([id number]) 76307 EST. PATIENT, LEVEL III Diagnosis: ESSENTIAL HYPERTENSION[SNOMED: 76752100] Diagnosis: DEPRESSIVE DISORDER NEC[ICD9: 311] Verona Olivares MD, [facility] CPT- 4: 76078 04/30/2013 ([id number]) 33851 EST. PATIENT, LEVEL III Diagnosis: ESSENTIAL HYPERTENSION[SNOMED: 68023384] Diagnosis: DEPRESSIVE DISORDER NEC[ICD9: 311] Verona Olivares MD [facility] CPT- 4: 42182 01/29/2013 ([id number]) 70121 EST. PATIENT, LEVEL IV Diagnosis: ESSENTIAL HYPERTENSION[SNOMED: 60105804] Diagnosis: DEPRESSIVE DISORDER NEC[ICD9: 311] Diagnosis: OBESITY[ICD9: 278.00] Verona Olivares MD [facility] CPT-4: 77884 10/30/2012 ([id number]) 99479 EST. PATIENT, LEVEL III Diagnosis: ESSENTIAL HYPERTENSION[SNOMED: 49173230] Diagnosis: HYPERLIPIDEMIA[ICD9: 272.4] Diagnosis: DEPRESSIVE DISORDER NEC[ICD9: 311] Verona Olivares MD [facility] CPT- 4: 15821 07/12/2012 ([id number]) 56855 EST. PATIENT, LEVEL IV Diagnosis: ESSENTIAL HYPERTENSION[SNOMED: 26686353] Diagnosis: DEPRESSIVE DISORDER NEC[ICD9: 311] Diagnosis: Palpitations[ICD9: 785.1] Diagnosis: Acute maxillary sinusitis[ICD9: 461.0] Verona Olivares MD [facility] CPT-4: 35617 06/07/2012 03896 EST. PATIENT, LEVEL IV Diagnosis: ESSENTIAL HYPERTENSION[SNOMED: 75811720] Diagnosis: COUGH[ICD9: 786.2] Diagnosis: Upper respiratory infection[ICD9: 465.9] Verona Olivares MD [facility] CPT-4: 58715 12/01/2011 ([id number]) 13305 EST. PATIENT, LEVEL III Diagnosis: ESSENTIAL HYPERTENSION[SNOMED: 58796981] Verona Olivares MD [facility] CPT-4: 43418 11/18/2011 ([id number]) 24231 EST. PATIENT, LEVEL III Diagnosis: ESSENTIAL HYPERTENSION[SNOMED: 26547766] Verona Olivares MD [facility] CPT-4: 41070 11/09/2011 ([id number]) OFFICE VISIT, NEW - LEVEL 4 Diagnosis: Restless leg syndrome[ICD9: 333.94] Diagnosis: INSOMNIA IN OTHER DIS[ICD9: 327.01] Diagnosis: Elevated blood pressure (not hypertension)[ICD9: 796.2] [facility] CPT-4: 52547 10/27/2011 Plan of Care Planned Activity Notes [...] worse. RX sent to patient's pharmacy. 11/24/2018 Patient Education: Patient Medication Summary Completed [...] current medications. 10/31/2018 Appointment: Verona Olivares WPtel: [address] [place], [place] [phone] (15 min) Moderate 10/31/2018 Patient Education: Patient [...] allergy spray. 09/26/2018 Appointment: Che Garcia WPtel: [phone] [phone] Portal Appointment Requests 09/26/2018 Appointment: Solange Snyder WPtel: [phone] (15 min) Moderate 09/26/2018 Patient Education: Patient [...] 20mg nightly 06/27/2018 Appointment: Verona Olivares WPtel: [phone] (15 min) Moderate 06/27/2018 Patient Education: Patient Medication Summary Completed 06/27/2018 Patient Education: Depression Completed 06/27/2018 Appointment: Verona Olivares WPtel: [phone] (15 min) Moderate 06/07/2018 Visit Plan: Hypertension [...] Start on Lexapro 10mg daily. 05/11/2018 App[facility]an [phone] ([facility] min) Moderate 05/11/2018 Patient Education: Patient [...] not resolve 03/08/2017 [phone] (15 min) Moderate 03/08/2017 Patient Education: Patient [...] plan. 09/06/2016 Appointment: Che Garcia WPtel: [phone] [phone] (15 min) Moderate 09/06/2016 Patient Education: Patient Medication Summary Completed 09/06/2016 Appointment: Injection 07/30/2016 Patient Education: Patient Medication Summary Completed 07/30/2016 Visit Plan: Lnboi-kfbuh-pshb aches-patient sent for stat labs and influenza swab-will treat as indicated-instructed patient we will call her with the results of her testings-tylenol/motrin as needed for fever, increase po fluids. Patient verbalized understanding of plan. 07/08/2016 Appointment: Che Garcia WPtel: [phone] [phone] (15 min) Moderate 07/08/2016 Patient Education: Patient [...] completely resolve. 01/27/2015 Appointment: Che Garcia WPtel: [address] [place], [place] [id number] [place], [place] [id number] 01/27/2015 Patient Education: Patient Medication Summary Completed [...] blood pressures. 08/05/2014 Appointment: Verona Olivares WPtel: [phone] Follow up 08/05/2014 Patient Education: Patient Medication [...] for sleep. 02/04/2014 Appointment: Verona Olivares WPtel: [phone] Follow up 02/04/2014 Patient Education: Patient Medication [...] the antidepressant. 11/05/2013 Appointment: Verona Olivares WPtel: [phone] Follow up 11/05/2013 Patient Education: Patient Medication Summary Completed 11/05/2013 Patient Education: Hypertension Completed 11/05/2013 Appointment: Verona Olivares WPtel: [address] [place], [place] [phone] Follow up 10/18/2013 Appointment: Verona Olivares WPtel: [address] [place], [place] [phone] Follow up 08/07/2013 Visit Plan: Bronchitis - acute case of bronchitis identified. Pt has been given antibiotics, breathing treatments as appropriate, and pt has been instructed to call if symptoms are not improved, or if symptoms acutely worsen. RX sent to patient's pharmacy. 07/17/2013 Appointment: Che Garcia WPtel: [phone] [facility] 07/17/2013 Patient Education: Patient Medication Summary Completed [...] spray. 06/07/2013 [phone] [facility] 06/07/2013 Patient Education: Patient Medication Summary Completed [...] medications. 04/30/2013 Appointment: Verona Olivares WPtel: [phone] [phone] Follow up 04/30/2013 Patient Education: Patient Medication [...] current medications. 01/29/2013 Appointment: Verona Olivares WPtel: [phone] [phone] Follow up 01/29/2013 Patient Education: Patient Medication [...] options. 10/30/2012 [phone] [facility] 10/30/2012 Patient Education: Patient [...] medications. 07/12/2012 App[phone] [facility] 07/12/2012 Patient Education: Patient [...] above medications. 06/07/2012 Appointment: Verona Olivares WPtel: [address] [place] [address] [place] Other 06/07/2012 Patient Education: Patient Medication Summary Completed 06/07/2012 Patient Education: High Blood Pressure: Essential Hypertension Completed 06/07/2012 Appointment: Verona Olivares WPtel: [address] [place] [address] [place] Other 05/29/2012 Visit Plan: Hypertension - [...] for cough 12/01/2011 Appointment: Verona Olivares WPtel: [facility] [place] [phone] [place] Follow up 12/01/2011 Patient Education: Patient Medication [...] today. 11/18/2011 Appointment: Verona Olivares WPtel: [phone] [phone] Other 11/18/2011 Patient Education: Patient Medication Summary [...] acute conerns. 11/09/2011 Appointment: [phone] [phone] [facility] 11/09/2011 Patient Education: Patient [...] the diet. 10/27/2011 Appointment: Verona Olivares WPtel[facility] [facility] 10/27/2011 Patient Education: Patient Medication Summary Completed 10/27/2011 Patient Education: Restless Legs Syndrome Completed 10/27/2011 Patient Education: Insomnia Completed 10/27/2011 Instructions Comment tiger sharmin aleve 2 tabs twice daily with food [...] exposure. No change in current medications. . Iycjw-nadld-kifw aches-patient sent for stat labs and influenza [...]
--- OUTSIDE RECORDS SUMMARY | 2019-03-02 10:43 | XMS REPORT | CCD ---
Author Author Verona Olivares Organization Verona Olivares MD, [facility] Address [address] [place] [address] Phone Care Team Providers Care Bow Rehairer Name Role Phone Verona Olivares PP Unavailable CCM Unavailable Summary Purpose Interface Exchange Insurance Providers Payer name Policy type / Coverage type Covered democrat ID Effective Begin Date Effective End Date [facility] [id number] Unknown Family history Mother Diagnosis Age At [...] Currently employed 10/27/[address]: 365360687 Never smoker 10/27/[address]: 253229476 Never drinks alcohol 10/27/2011 Has the patient [...] Instructions Zithromax Z-Tomás 250 mg tablet RxNorm: 133187 1 Tablet(s) PO UD 11/24/2018 11/28/2018 Active promethazine 6.25 mg-codeine 10 mg/5 mL syrup RxNorm: 460834 5-10 Milliliter(s) PO Q6 PRN 11/24/2018 No Stop Date Active Kenalog 40 mg/mL suspension for injection RxNorm: 7031785 Milliliter(s) Inj 11/24/2018 11/24/2018 Inactive lisinopril 10 mg tablet RxNorm: 711266 1 Tablet(s) PO daily 11/14/2018 04/12/2019 Active doxepin 10 mg capsule RxNorm: 7164215 1 Capsule(s) PO QHS as needed insomnia 10/31/2018 01/28/2019 Active Kenalog 40 mg/mL suspension for injection RxNorm: 0707683 Milliliter(s) Inj 09/26/2018 09/26/2018 Inactive Augmentin 875 mg-125 mg tablet RxNorm: 344531 1 Tablet(s) PO BID 09/26/2018 10/05/2018 Inactive escitalopram 20 mg tablet RxNorm: 168799 1 Tablet(s) PO QPM 06/27/2018 01/22/2019 Active lisinopril 10 mg tablet RxNorm: 126481 1 Tablet(s) PO daily 06/21/2018 11/13/2018 Inactive escitalopram 10 mg tablet RxNorm: 700668 1 Tablet(s) PO QPM 05/11/2018 06/26/2018 Inactive lisinopril 10 mg tablet RxNorm: 146525 1 Tablet(s) PO daily 05/11/2018 06/20/2018 Inactive alprazolam 0.5 mg tablet RxNorm: 999022 TAKE ONE-HALF TO ONE TABLET BY MOUTH EVERY 6 HOURS NEEDED 09/20/2017 10/04/2017 Inactive Augmentin 875 mg-125 mg tablet RxNorm: 709106 1 Tablet(s) PO BID 03/08/2017 03/17/2017 Inactive alprazolam 0.5 mg tablet RxNorm: 026138 Tablet(s) PO Q6 as needed TAKE ONE-HALF TO ONE TABLET BY MOUTH EVERY 6 HOURS NEEDED 12/24/2016 01/22/2017 Inactive triamcinolone acetonide 0.5 % topical cream RxNorm: 8089038 1 Application TOP BID 09/06/2016 09/15/2016 Inactive Levaquin 500 mg tablet RxNorm: 914044 1 Tablet(s) PO daily 07/08/2016 07/14/2016 Inactive please call her when ready Levaquin 500 mg tablet RxNorm: 913786 1 Tablet(s) PO daily 07/08/2016 07/07/2016 Inactive alprazolam 0.5 mg tablet RxNorm: 327843 Tablet(s) PO Q6 as needed TAKE ONE-HALF TO ONE TABLET BY MOUTH EVERY 6 HOURS NEEDED 04/26/2016 12/23/2016 Inactive Generic For:*XANAX 0.5 MG TABLET 05/16/2013 1:18:18 PM (Appended: Controlled substance eRx refill - RxReferenceNumber: [id number]) alprazolam 0.5 mg tablet RxNorm: 983846 Tablet(s) PO Q6 as needed TAKE ONE-HALF TO ONE TABLET BY MOUTH EVERY 6 HOURS NEEDED 04/26/2016 09/19/2017 Inactive Generic For:*XANAX 0.5 MG TABLET 05/16/2013 1:18:18 PM (Appended: Controlled substance eRx refill - RxReferenceNumber: [id number]) betamethasone dipropionate 0.05 % topical cream RxNorm: 408540 1 TOP UD 1-2 x per day PRN 01/16/2016 No Stop Date Active Kenalog 40 mg/mL suspension for injection RxNorm: 0951975 Milliliter(s) Inj 01/14/2016 01/14/2016 Inactive prednisone 20 mg tablet RxNorm: 986606 2 Tablet(s) PO daily 01/14/2016 01/18/2016 Inactive alprazolam 0.5 mg tablet RxNorm: 072923 Tablet(s) PO Q6 as needed TAKE ONE-HALF TO ONE TABLET BY MOUTH EVERY 6 HOURS NEEDED 09/26/2015 04/25/2016 Inactive Generic For:*XANAX 0.5 MG TABLET 05/16/2013 1:18:18 PM (Appended: Controlled substance eRx refill - RxReferenceNumber: [id number]) azithromycin 250 mg tablet RxNorm: 378091 1 Tablet(s) PO UD 2 pills day one and 1 pill day 2-5 08/29/2015 09/02/2015 Inactive Keflex 500 mg capsule RxNorm: 086391 1 Capsule(s) PO TID 02/03/2015 02/09/2015 Inactive take a probiotic while on the abt Keflex 500 mg capsule RxNorm: 943673 1 Capsule(s) PO TID 02/03/2015 02/02/2015 Inactive take a probiotic while on the abt hydrocodone 5 mg-acetaminophen 325 mg tablet RxNorm: 817553 1 Tablet(s) PO Q6 PRN 01/27/2015 08/16/2015 Inactive Kenalog 40 mg/mL suspension for injection RxNorm: 9924340 2 Milliliter(s) Inj 05/02/2014 05/02/2014 Inactive Zithromax Z-Tomás 250 mg tablet RxNorm: 883017 1 Tablet(s) PO QPM 05/02/2014 05/06/2014 Inactive Rocephin 500 mg solution for injection RxNorm: 902544 1 Milliliter(s) Inj 05/02/2014 05/02/2014 Inactive metoprolol tartrate 25 mg tablet RxNorm: 828766 1/2 Tablet(s) PO BID TAKE ONE-HALF TABLET BY MOUTH TWICE DAILY 11/05/2013 02/03/2014 Inactive vilazodone 40 mg tablet RxNorm: 8932938 1 Tablet(s) PO daily 08/09/2013 02/03/2014 Inactive Zithromax Z-Tomás 250 mg tablet RxNorm: 259866 Tablet(s) PO 07/17/2013 11/04/2013 Inactive Rocephin 500 mg Solution for Injection RxNorm: 682027 Inj 07/17/2013 07/17/2013 Inactive Kenalog 40 mg/mL Susp for Injection RxNorm: 3680306 1 Milliliter(s) Inj 06/07/2013 06/07/2013 Inactive alprazolam 0.5 mg tablet RxNorm: 903323 1/2-1 Tablet(s) PO Q6 PRN 05/17/2013 No Stop Date Active alprazolam 0.5 mg tablet RxNorm: 373740 Tablet(s) PO TAKE ONE-HALF TO ONE TABLET BY MOUTH EVERY 6 HOURS NEEDED 05/17/2013 09/25/2015 Inactive Generic For:*XANAX 0.5 MG TABLET 05/16/2013 1:18:18 PM (Appended: Controlled substance eRx refill - RxReferenceNumber: [id number]) metoprolol tartrate 25 mg tablet RxNorm: 167351 Tablet(s) PO TAKE ONE-HALF TABLET BY MOUTH TWICE DAILY 02/12/2013 11/04/2013 Inactive metoprolol tartrate 25 mg tablet RxNorm: 156352 1/2 Tablet(s) PO BID 01/29/2013 05/28/2013 Inactive alprazolam 0.5 mg tablet RxNorm: 795779 1/2-1 Tablet(s) PO Q6 PRN 11/28/2012 05/17/2013 Inactive lisinopril 10 mg tablet RxNorm: 038807 1 Tablet(s) PO daily 10/30/2012 01/28/2013 Inactive vilazodone 40 mg tablet RxNorm: 3063609 1 Tablet(s) PO daily 08/08/2012 02/03/2013 Inactive metoprolol tartrate 25 mg tablet RxNorm: 558616 1/2 Tablet(s) PO BID 06/07/2012 10/04/2012 Inactive amoxicillin-potassium clavulanate 500 mg-125 mg tablet RxNorm: 444122 1 Tablet(s) PO TID 06/07/2012 06/13/2012 Inactive Ambien 5 mg tablet RxNorm: 388746 1 Tablet(s) PO HS PRN 05/02/2012 05/31/2012 Inactive lisinopril 10 mg tablet RxNorm: 192307 1 Tablet(s) PO daily 11/09/2011 06/05/2012 Inactive pramipexole 0.5 mg Tab RxNorm: 314155 1/2 Tablet(s) PO QHS 11/01/2011 01/29/2012 Inactive pramipexole 0.5 mg Tab RxNorm: 368334 1 Tablet(s) PO QHS 10/27/2011 10/31/2011 Inactive Fish Oil 1,200 mg-144 mg-216 mg Cap RxNorm: 1 Capsule(s) PO daily No Start Date Active potassium 99 mg Tab RxNorm: 1 Tablet(s) PO daily No Start Date 10/29/2012 Inactive betamethasone dipropionate 0.05 % topical cream RxNorm: 144281 1 TOP UD 1-2 x per day PRN No Start Date 01/15/2016 Inactive alprazolam 0.5 mg tablet RxNorm: 820262 1/2-1 Tablet(s) PO Q6 PRN No Start Date 11/27/2012 Inactive Ambien 5 mg tablet RxNorm: 538191 1 Tablet(s) PO HS PRN No Start Date 05/01/2012 Inactive calcium & magnesium carbonates 311 mg-232 mg Tab RxNorm: 827558 1 Tablet(s) PO BID No Start Date 10/29/2012 Inactive multivitamin Tab RxNorm: 1 Tablet(s) PO daily No Start Date 10/29/2012 Inactive vilazodone 40 mg tablet RxNorm: 4323085 1 Tablet(s) PO daily No Start Date 08/07/2012 Inactive Zithromax Z-Tomás 250 mg tablet RxNorm: 743103 Tablet(s) PO No Start Date 07/16/2013 Inactive Medication Administered Medication Codes Instructions Start Date Status Kenalog 40 mg/mL suspension for injection RxNorm: 4643268 Milliliter 11/24/2018 Active Kenalog 40 mg/mL suspension for injection RxNorm: 6798169 Milliliter 09/26/2018 No longer Active Kenalog 40 mg/mL suspension for injection RxNorm: 0639017 Milliliter 01/14/2016 No longer Active Rocephin 500 mg solution for injection RxNorm: 293463 1Milliliter 05/02/2014 No longer Active Kenalog 40 mg/mL suspension for injection RxNorm: 2314309 2Milliliter 05/02/2014 No longer Active Rocephin 500 mg Solution for Injection RxNorm: 951624 07/17/2013 No longer Active Kenalog 40 mg/mL Susp for Injection RxNorm: 0614573 1Milliliter 06/07/2013 No longer Active Immunizations Vaccine [...] NEC ICD-9: 311 11/05/2013 ESSENTIAL HYPERTENSION SNOMED: 96280263 ICD-9: 401.9 11/05/2013 ACUTE BRONCHITIS ICD-9: 466.0 [...] Item Item Code Result Date Influenza A+B Env477 Influ A+B Negative 07/08/2016 Cbc With Differential [...] 29.7 pg 07/08/2016 Cbc With Differential Ord2 Mcpherson% 6.8 % 07/08/2016 Cbc With Differential Ord2 [...] 1.19 K/ul 07/08/2016 Cbc With Differential Ord2 Mcpherson ABS# 1.1 K/ul 07/08/2016 Cbc With Differential Ord2 Eos ABS# 0.0 K/ul 07/08/2016 Cbc With Differential Ord2 Baso ABS# 0.0 K/ul 07/08/2016 Comp Metabolic Uqx311 NA 134 mEq/L 07/08/2016 Comp Metabolic Rbn782 K 3.9 mEq/L 07/08/2016 Comp Metabolic Oav995 CL 101 mEq/L 07/08/2016 Comp Metabolic Fny010 CO2 27.0 mEq/L 07/08/2016 Comp Metabolic Bmp568 ANION GAP 10 07/08/2016 Comp Metabolic Suu786 GLUCOSE 120 mg/dL 07/08/2016 Comp Metabolic Ffn468 Creat 0.9 mg/dL 07/08/2016 Comp Metabolic Fph467 eGFR 71 ml/min/1.73m2 07/08/2016 Comp Metabolic Qxu230 BUN 16 mg/dL 07/08/2016 Comp Metabolic Eee100 B/C Ratio 18.4 Ratio 07/08/2016 Comp Metabolic Xyr255 CALCIUM 10.0 mg/dL 07/08/2016 Comp Metabolic Mmp455 ALK PHOS 57 U/L 07/08/2016 Comp Metabolic Har374 AST(SGOT) 21 U/L 07/08/2016 Comp Metabolic Qxz007 ALT(SGPT) 20 U/L 07/08/2016 Comp Metabolic Abb157 BILI T 1.1 mg/dL 07/08/2016 Comp Metabolic Moe431 ALBUMIN 3.9 g/dL 07/08/2016 Comp Metabolic Tek073 TPRO 6.2 g/dL 07/08/2016 Comp Metabolic Pla566 GLOB 2.4 g/dL 07/08/2016 Comp Metabolic Fxc828 A/G Ratio 1.6 Ratio 07/08/2016 Comp Metabolic Cjl168 Osmo 271 mOsmo 07/08/2016 Comp Metabolic Bph992 NA 130 mEq/L 08/29/2015 Comp Metabolic Yhz377 K 4.0 mEq/L 08/29/2015 Comp Metabolic Abn667 CL 99 mEq/L 08/29/2015 Comp Metabolic Wam426 CO2 21.0 mEq/L 08/29/2015 Comp Metabolic Ygv219 ANION GAP 14 08/29/2015 Comp Metabolic Bab762 GLUCOSE 105 mg/dL 08/29/2015 Comp Metabolic Ddp655 Creat 1.0 mg/dL 08/29/2015 Comp Metabolic Tli050 eGFR 62 ml/min/1.73m2 08/29/2015 Comp Metabolic Ecy646 BUN 8 mg/dL 08/29/2015 Comp Metabolic Akf744 B/C Ratio 8.2 Ratio 08/29/2015 Comp Metabolic Wnp163 CALCIUM 9.9 mg/dL 08/29/2015 Comp Metabolic Jog220 ALK PHOS 93 U/L 08/29/2015 Comp Metabolic Xcj541 AST(SGOT) 16 U/L 08/29/2015 Comp Metabolic Kje764 ALT(SGPT) 22 U/L 08/29/2015 Comp Metabolic Rkj128 BILI T 0.6 mg/dL 08/29/2015 Comp Metabolic Muj960 ALBUMIN 4.3 g/dL 08/29/2015 Comp Metabolic Nyw158 TPRO 6.7 g/dL 08/29/2015 Comp Metabolic Eox985 GLOB 2.4 g/dL 08/29/2015 Comp Metabolic Vkw479 A/G Ratio 1.8 Ratio 08/29/2015 Comp Metabolic Vcq739 Osmo 259 mOsmo 08/29/2015 Cbc With Differential [...] CPT-4: J3301 09/26/2018 THER/PROPH/DIAG INJ SC/IM CPT-4: 10340 09/26/2018 IMMUNIZATION ADMIN CPT- 4: 24755 06/27/2018 FLU VAC NO PRSV 4 RAHUL 3 YRS+ Formatting Model/CDA Sections, Assigned to/Zonia Martinez CPT-4: 22358Aajckyv 06/27/2018 IMMUNIZATION ADMIN CPT- 4: 19790 07/30/2016 IIV4 FLU VACC NO PRESERV ID SNOMED CT: 62609854 CPT-4: 31496 07/30/2016 TRIAMCINOLONE ACET INJ NOS CPT-4: J3301 01/14/2016 IMMUNIZATION ADMIN CPT- 4: 56583 07/23/2015 IMMUNIZATION ADMIN EACH ADD CPT-4: 72998 07/23/2015 FLU VACC 4 RAHUL 3 YRS PLUS IM Formatting Model/CDA Sections, Assigned to SNOMED CT: 32188533 CPT-4: 05164Drkbzbr 07/23/2015 THER/PROPH/DIAG INJ SC/IM CPT-4: 08106 05/02/2014 ROCEPHIN, PER 250 MG CPT- 4: J0696 05/02/2014 TRIAMCINOLONE ACET INJ NOS CPT-4: J3301 05/02/2014 ROCEPHIN, PER 250 MG CPT- 4: J0696 07/17/2013 TRIAMCINOLONE ACET INJ NOS CPT-4: J3301 06/07/2013 BIOPSY SKIN LESION CPT- 4: 72414 11/09/2011 Vital Signs Date Vital 11/24/2018 Blood Pressure 1: 122/70 Code: 8480-6 BMI: 32.7 Code: 73560-0 Heart Rate 1: 85 bpm Height: 5'8" SpO2: 98% Temperature: 36.6 (C) / 97.9 (F) Weight: 215 lbs 10/31/2018 Blood Pressure 1: 126/78 Code: 8480-6 BMI: 32.7 Code: 95486-8 Heart Rate 1: 75 bpm Height: 5'8" SpO2: 97% Weight: 215 lbs 09/26/2018 Blood Pressure 1: 130/78 Code: 8480-6 BMI: 32.4 Code: 91436-6 Heart Rate 1: 67 bpm Height: 5'8" SpO2: 97% Temperature: 36.5 (C) / 97.7 (F) Weight: 213 lbs 06/27/2018 Blood Pressure 1: 132/78 Code: 8480-6 BMI: 33.9 Code: 39341-6 Heart Rate 1: 66 bpm Height: 5'8" SpO2: 95% Weight: 223 lbs 05/11/2018 Blood Pressure 1: 140/90 Code: 8480-6 BMI: 33.8 Code: 48564-0 Heart Rate 1: 74 bpm Height: 5'8" SpO2: 98% Weight: 222 lbs 03/08/2017 Blood Pressure 1: 144/86 Code: 8480-6 BMI: 31.2 Code: 97970-3 Heart Rate 1: 70 bpm Height: 5'8" SpO2: 98% Weight: 205 lbs 09/06/2016 Blood Pressure 1: 128/86 Code: 8480-6 BMI: 28.4 Code: 59594-5 Heart Rate 1: 86 bpm Height: 5'8" SpO2: 96% Weight: 187 lbs 07/08/2016 Blood Pressure 1: 120/60 Code: 8480-6 BMI: 28.4 Code: 89841-1 Height: 5'8" Temperature: 37.8 (C) / 100.1 (F) Weight: 187 lbs 01/14/2016 Blood Pressure 1: 152/86 Code: 8480-6 BMI: 30.4 Code: 64639-8 Heart Rate 1: 83 bpm Height: 5'8" SpO2: 97% Weight: 200 lbs 11/17/2015 Blood Pressure 1: 142/90 Code: 8480-6 BMI: 33.9 Code: 22406-7 Heart Rate 1: 75 bpm Height: 5'8" SpO2: 97% Weight: 223 lbs 08/29/2015 BMI: 35.6 Code: 52664-1 Heart Rate 1: 94 bpm Height: 5'8" SpO2: 98% Weight: 234 lbs 01/27/2015 Blood Pressure 1: 140/94 Code: 8480-6 Heart Rate 1: 88 bpm Height: 5'8" SpO2: 98% Weight: 08/05/2014 Blood Pressure 1: 138/82 Code: 8480-6 BMI: 33.6 Code: 77074-3 Heart Rate 1: 76 bpm Height: 5'8" Weight: 221 lbs 05/02/2014 Blood Pressure 1: 142/82 Code: 8480-6 Heart Rate 1: 84 bpm Height: SpO2: 100% Temperature: 37.1 (C) / 98.7 (F) Weight: 02/04/2014 Blood Pressure 1: 108/78 Code: 8480-6 BMI: 36.2 Code: 21760-5 Heart Rate 1: 60 bpm Height: 5'8" Weight: 238 lbs 11/05/2013 Blood Pressure 1: 134/74 Code: 8480-6 BMI: 35.9 Code: 58546-4 Heart Rate 1: 68 bpm Height: 5'8" Weight: 236 lbs 07/17/2013 Blood Pressure 1: 136/88 Code: 8480-6 BMI: 35.9 Code: 81628-6 Heart Rate 1: 72 bpm Height: 5'8" Temperature: 36.4 (C) / 97.6 (F) Weight: 236 lbs 06/07/2013 Blood Pressure 1: 134/92 Code: 8480-6 Heart Rate 1: 72 bpm Temperature: 37.0 (C) / 98.6 (F) Weight: 04/30/2013 Blood Pressure 1: 148/78 Code: 8480-6 BMI: 35.1 Code: 99186-8 Heart Rate 1: 64 bpm Height: 5'8" Weight: 231 lbs 01/29/2013 Blood Pressure 1: 128/84 Code: 8480-6 BMI: 34.4 Code: 75462-9 Heart Rate 1: 76 bpm Height: 5'8" Weight: 226 lbs 10/30/2012 Blood Pressure 1: 118/72 Code: 8480-6 BMI: 33.5 Code: 77422-2 Heart Rate 1: 64 bpm Height: 5'8" Weight: 220 lbs 07/12/2012 Blood Pressure 1: 134/88 Code: 8480-6 Heart Rate 1: 64 bpm Weight: 214 lbs 06/07/2012 Blood Pressure 1: 152/92 Code: 8480-6 Heart Rate 1: 68 bpm Respiratory Rate: 16 bpm Temperature: 36.7 (C) / 98.0 (F) Weight: 209 lbs 12/01/2011 Blood Pressure 1: 140/82 Code: 8480-6 BMI: 29.5 Code: 01308-1 Heart Rate 1: 72 bpm Height: 5'8" [...] 1: 144/90 Code: 8480-6 BMI: 29.3 Code: 36488-8 Heart Rate 1: 76 bpm Height: 5'8" [...] data Encounters Encounter Performer Location Codes Date ([id number]) 87848 EST. PATIENT, LEVEL III Diagnosis: Cough[ICD10: R05] Diagnosis: Acute upper respiratory infection, unspecified[ICD10: J06.9] Che Olivares MD, [facility] CPT-4: 86226 11/24/2018 [id number]) 03120 EST. PATIENT, LEVEL III Diagnosis: Essential (primary) hypertension[ICD10: I10] Diagnosis: Major depressive disorder, recurrent, moderate[ICD10: F33.1] Diagnosis: Other insomnia[ICD10: G47.09] [facility] CPT-4: 32271 10/31/2018 24341 EST. PATIENT, LEVEL III Diagnosis: Acute laryngopharyngitis[ICD10: J06.0] Diagnosis: Other allergic rhinitis[ICD10: J30.89] [facility] CPT- 4: 09470 09/26/2018 [id number]) 10590 EST. PATIENT, LEVEL III Diagnosis: Essential (primary) hypertension[ICD10: I10] Diagnosis: Major depressive disorder, recurrent, moderate[ICD10: F33.1] Diagnosis: Generalized anxiety disorder[ICD10: F41.1] Diagnosis: Encounter for immunization[ICD10: Z23] Verona Olivares MD, [facility] CPT-4: 11061 06/27/2018 ([id number]) 65764 EST. PATIENT, LEVEL IV Diagnosis: Essential (primary) hypertension[ICD10: I10] Diagnosis: Major depressive disorder, recurrent, moderate[ICD10: F33.1] Diagnosis: Generalized anxiety disorder[ICD10: F41.1] Verona Olivares MD, [facility] CPT-4: 79241 05/11/2018 ([id number]) 31087 EST. PATIENT, LEVEL III Diagnosis: Acute recurrent maxillary sinusitis[ICD10: J01.01] Diagnosis: Other hallucinations[ICD10: R44.2] Diagnosis: Allergic rhinitis due to pollen[ICD10: J30.1] Che Olivares MD, [facility] CPT-4: 81421 03/08/2017 ([id number]) 01754 EST. PATIENT, LEVEL II Diagnosis: Cellulitis of right upper limb[ICD10: L03.113] Che Olivares MD, [facility] CPT-4: 94276 09/06/2016 ([id number]) 78485 EST. PATIENT, LEVEL III Diagnosis: Cough[ICD10: R05] Diagnosis: Fever, unspecified[ICD10: R50.9] Diagnosis: Pain, unspecified[ICD10: R52] Che Olivares MD, [facility] CPT-4: 38819 07/08/2016 25731 EST. PATIENT, LEVEL IV Diagnosis: Rash and other nonspecific skin eruption[ICD10: R21] Solange Olivares MD, [facility] CPT-4: 35518 01/14/2016 ([id number]) 90636 EST. PATIENT, LEVEL III Diagnosis: Pain in left shoulder[ICD10: M25.512] Diagnosis: Pain in right shoulder[ICD10: M25.511] Diagnosis: Bicipital tendinitis, left shoulder[ICD10: M75.22] Che Olivares MD, [facility] CPT-4: 09963 11/17/2015 54522 EST. PATIENT, LEVEL IV Diagnosis: Epigastric pain[ICD10: R10.13] Diagnosis: Acute upper respiratory infection, unspecified[ICD10: J06.9] Solange Olivares MD, [facility] CPT-4: 35194 08/29/2015 ([id number]) 31947 EST. PATIENT, LEVEL III Diagnosis: Left knee pain[ICD9: 719.46] Diagnosis: ACUTE URI[ICD9: 465.9] Diagnosis: ALLERGIC RHINITIS[ICD9: 477.9] Che Olivares MD, [facility] CPT-4: 49100 01/27/2015 ([id number]) 24651 EST. PATIENT, LEVEL III Diagnosis: Elevated blood pressure (not hypertension)[ICD9: 796.2] Diagnosis: Biceps tendinitis[ICD9: 726.12] Diagnosis: Wrist pain, acute[ICD9: 719.43] Verona Olivares MD, [facility] CPT-4: 82935 08/05/2014 ([id number]) 47979 EST. PATIENT, LEVEL III Diagnosis: Acute maxillary sinusitis[ICD9: 461.0] Verona Olivares MD, [facility] CPT-4: 87151 05/02/2014 ([id number]) 40566 EST. PATIENT, LEVEL III Diagnosis: INSOMNIA IN OTHER DIS[ICD9: 327.01] Verona Olivares MD, [facility] CPT- 4: 69889 02/04/2014 ([id number]) 61111 EST. PATIENT, LEVEL III Diagnosis: ESSENTIAL HYPERTENSION[SNOMED: 46347079] Diagnosis: DEPRESSIVE DISORDER NEC[ICD9: 311] Verona Olivares MD, [facility] CPT- 4: 60024 11/05/2013 ([id number]) 99388 EST. PATIENT, LEVEL III Diagnosis: ACUTE BRONCHITIS[ICD9: 466.0] Che Olivares MD, [facility] CPT-4: 16091 07/17/2013 ([id number]) 83610 EST. PATIENT, LEVEL III Diagnosis: ACUTE URI[ICD9: 465.9] Diagnosis: COUGH[ICD9: 786.2] Diagnosis: ALLERGIC RHINITIS[ICD9: 477.9] Che Olivares MD, [facility] CPT-4: 57185 06/07/2013 ([id number]) 37721 EST. PATIENT, LEVEL III Diagnosis: ESSENTIAL HYPERTENSION[SNOMED: 65811323] Diagnosis: DEPRESSIVE DISORDER NEC[ICD9: 311] Verona Olivares MD, [facility] CPT- 4: 87686 04/30/2013 ([id number]) 94573 EST. PATIENT, LEVEL III Diagnosis: ESSENTIAL HYPERTENSION[SNOMED: 45071738] Diagnosis: DEPRESSIVE DISORDER NEC[ICD9: 311] Verona Olivares MD [facility] CPT- 4: 24664 01/29/2013 ([id number]) 78405 EST. PATIENT, LEVEL IV Diagnosis: ESSENTIAL HYPERTENSION[SNOMED: 73260037] Diagnosis: DEPRESSIVE DISORDER NEC[ICD9: 311] Diagnosis: OBESITY[ICD9: 278.00] Verona Olivares MD [facility] CPT-4: 51531 10/30/2012 ([id number]) 47120 EST. PATIENT, LEVEL III Diagnosis: ESSENTIAL HYPERTENSION[SNOMED: 52032778] Diagnosis: HYPERLIPIDEMIA[ICD9: 272.4] Diagnosis: DEPRESSIVE DISORDER NEC[ICD9: 311] Verona Olivares MD [facility] CPT- 4: 79756 07/12/2012 ([id number]) 16889 EST. PATIENT, LEVEL IV Diagnosis: ESSENTIAL HYPERTENSION[SNOMED: 75211360] Diagnosis: DEPRESSIVE DISORDER NEC[ICD9: 311] Diagnosis: Palpitations[ICD9: 785.1] Diagnosis: Acute maxillary sinusitis[ICD9: 461.0] Verona Olivares MD [facility] CPT-4: 79028 06/07/2012 18529 EST. PATIENT, LEVEL IV Diagnosis: ESSENTIAL HYPERTENSION[SNOMED: 99707497] Diagnosis: COUGH[ICD9: 786.2] Diagnosis: Upper respiratory infection[ICD9: 465.9] Verona Olivares MD [facility] CPT-4: 19123 12/01/2011 ([id number]) 79055 EST. PATIENT, LEVEL III Diagnosis: ESSENTIAL HYPERTENSION[SNOMED: 43966477] Verona Olivares MD [facility] CPT-4: 49248 11/18/2011 ([id number]) 20206 EST. PATIENT, LEVEL III Diagnosis: ESSENTIAL HYPERTENSION[SNOMED: 42490468] Verona Olivares MD [facility] CPT-4: 27602 11/09/2011 ([id number]) OFFICE VISIT, NEW - LEVEL 4 Diagnosis: Restless leg syndrome[ICD9: 333.94] Diagnosis: INSOMNIA IN OTHER DIS[ICD9: 327.01] Diagnosis: Elevated blood pressure (not hypertension)[ICD9: 796.2] [facility] CPT-4: 34233 10/27/2011 Plan of Care Planned Activity Notes [...] current medications. 10/31/2018 Appointment: Verona Olivares WPtel: [address] [place], [place] [id number] (15 min) Moderate 10/31/2018 Patient Education: Patient [...] spray. 09/26/2018 [facility]ment[facility] [phone] [phone] [facility] Appointment Requests 09/26/2018 App[facility]ment: [facility] [phone] [phone] (15 min) Moderate 09/26/2018 Patient Education: Patient [...] nightly 06/27/2018 [phone] ([facility] min) Moderate 06/27/2018 Patient Education: Patient Medication Summary Completed 06/27/2018 Patient Education: Depression Completed 06/27/2018 App[facility]ment: [facility] [phone] [facility] [place] (15 min) Moderate 06/07/2018 Visit Plan: Hypertension [...] 10mg daily. 05/11/2018 Appointment: Verona Olivares WPtel: [address] [place] [address] (15 min) Moderate 05/11/2018 Patient Education: Patient [...] if symptoms do not resolve 03/08/2017 Appointment: Ceh Garcia WPtel: [phone] (15 min) Moderate 03/08/2017 Patient Education: [...] of plan. 09/06/2016 Appointment: Che Garcia WPtel: [phone] [phone] (15 min) Moderate 09/06/2016 Patient Education: Patient Medication Summary Completed 09/06/2016 Appointment: Injection 07/30/2016 Patient Education: Patient Medication Summary Completed 07/30/2016 Visit Plan: Segxq-nczjp-qtxh aches-patient sent for stat labs and influenza swab-will treat as indicated-instructed patient we will call her with the results of her testings-tylenol/motrin as needed for fever, increase po fluids. Patient verbalized understanding of plan. 07/08/2016 Appointment: Che Garcia WPtel: [phone] [phone] (15 min) Moderate 07/08/2016 Patient Education: [...] completely resolve. 01/27/2015 Appointment: Che Garcia WPtel: [phone] [phone] Sick 01/27/2015 Patient Education: Patient Medication Summary [...] pressures. 08/05/2014 Appointment: Verona Olivares WPtel: [phone] [phone] Follow up 08/05/2014 Patient Education: Patient Medication [...] for sleep. 02/04/2014 Appointment: Verona Olivares WPtel: [phone] [phone] Follow up 02/04/2014 Patient Education: Patient Medication [...] the antidepressant. 11/05/2013 Appointment: Verona Olivares WPtel: [address] [place], [place] [phone] Follow up 11/05/2013 Patient Education: Patient Medication Summary Completed 11/05/2013 Patient Education: Hypertension Completed 11/05/2013 Appointment: Verona Olivares WPtel: [address] [place], [place] [phone] Follow up 10/18/2013 Appointment: Verona Olivares WPtel: [address] [place], [place] [phone] Follow up 08/07/2013 Visit Plan: Bronchitis - acute case of bronchitis identified. Pt has been given antibiotics, breathing treatments as appropriate, and pt has been instructed to call if symptoms are not improved, or if symptoms acutely worsen. RX sent to patient's pharmacy. 07/17/2013 Appointment: Che Garcia WPtel: [phone] Sick 07/17/2013 Patient Education: Patient Medication Summary [...] allergy spray. 06/07/2013 Appointment: Che Garcia WPtel: [facility] [id number] [facility] 06/07/2013 Patient Education: Patient Medication Summary [...] medications. 04/30/2013 Appointment: Verona Olivares WPtel: [phone] [facility] Follow up 04/30/2013 Patient Education: Patient Medication [...] medications. 01/29/2013 [phone] [facility] 01/29/2013 Patient Education: Patient Medication [...] options. 10/30/2012 [phone] [facility] 10/30/2012 Patient Education: Patient Medication [...] medications. 07/12/2012 [phone] [facility] 07/12/2012 Patient Education: Patient [...] above medications. 06/07/2012 Appointment: Verona Olivares WPtel: [facility] [place] Other 06/07/2012 Patient Education: Patient Medication Summary Completed 06/07/2012 Patient Education: High Blood Pressure: Essential Hypertension Completed 06/07/2012 Appointment: Verona Olivares WPtel: [facility] [place] Other 05/29/2012 Visit Plan: Hypertension - [...] for cough 12/01/2011 Appointment: Verona Olivares WPtel: [facility] [place] Follow up 12/01/2011 Patient Education: Patient [...] change today. 11/18/2011 Appointment: Verona Olivares WPtel: [address] [place], [place] [id number] Other 11/18/2011 Patient Education: Patient Medication Summary [...] acute conerns. 11/09/2011 Appointment: Verona Olivares WPtel: [address] [place] [address] Surgical Procedure 11/09/2011 Patient Education: Patient Medication [...] the diet. 10/27/2011 Appointment: Verona Olivares WPtel: [facility] New Patient 10/27/2011 Patient Education: Patient Medication [...] situational exposure. No change in current medications. Prednisone 40mg a day, you can split [...] understanding and we discussed different exercise options. CONTINUE ANTI INFLAMMATORIES DIRECTED TAKE PAIN MEDICATION [...] 150/80 level, therefore, no medication change today. L-TRYPTOPHAN - MAY HELP AIDE SLEEP.. Insomnia [...] help- therefore recommended L-tryptophan for sleep. . URI - Pt advised to increase [...] spray in the nasal steroid allergy spray. Pt to use voltaren gel 2 grams [...] has reports of improved blood pressures. . Hypertension - uncontrolled - the patient [...] drainage, or any other acute conerns. . Sinusitis - Pt has acute infection [...] infection-call if symptoms do not resolve . Hypertension - well controlled - continue [...] pt to be used for cough . Ghwbs-kenym-ugun aches-patient sent for stat labs and influenza swab-will treat as indicated-instructed patient we will call her with the results of her testings-tylenol/motrin as needed for fever, increase po fluids. Patient verbalized understanding of plan.
--- OUTSIDE RECORDS SUMMARY | 2019-03-02 10:46 | XMS REPORT | CCD ---
Author Author Verona Olivares Organization Verona Olivares MD, [facility] Address [address] [place] [address] Phone Care Team Providers Care Gravel Inspector Name Role Phone Verona Olivares PP Unavailable CCM Unavailable Summary Purpose Interface Exchange Insurance Providers Payer name Policy type / Coverage type Covered alliance party ID Effective Begin Date Effective End Date [facility] [id number] Unknown Family history Mother Diagnosis Age At [...] Currently employed 10/27/[address]: 698831205 Never smoker 10/27/[address]: 884487601 Never drinks alcohol 10/27/2011 Has the patient [...] 9: V04.81 ICD-10: Z23 Active 07/29/2016 Unknown Cough ICD-9: 786.2 ICD-10: R05 Active 07/07/2016 Unknown Fever, unspecified ICD- 9: 780.60 ICD-10: [...] ICD-9: 719.41 ICD-10: M25.511 Active 11/16/2015 Unknown Acute upper respiratory infection, unspecified ICD-9: 465.9 ICD-10: J06.9 Active 08/28/2015 Unknown Epigastric pain ICD-9: 789.06 ICD-10: R10.13 [...] ICD- 9: V04.81 ICD-10: Z23 07/29/2016 Active Cough ICD-9: 786.2 ICD-10: R05 07/07/2016 Active Fever, unspecified ICD- 9: 780.60 ICD-10: R50.9 07/07/2016 Active Pain, unspecified ICD-9: 780.96 ICD-10: R52 07/07/2016 Active Rash and other nonspecific skin eruption ICD-9: 782.1 ICD-10: R21 01/13/2016 Active Bicipital tendinitis, left shoulder ICD-9: 726.12 ICD-10: M75.22 11/16/2015 Active Pain in left shoulder ICD- 9: 719.41 ICD-10: M25.512 11/16/2015 Active Pain in right shoulder ICD-9: 719.41 ICD-10: M25.511 11/16/2015 Active Acute upper respiratory infection, unspecified ICD-9: 465.9 ICD-10: J06.9 08/28/2015 Active Epigastric pain ICD-9: 789.06 ICD-10: R10.13 [...] Date Stop Date Status Fill Instructions lisinopril 10 mg tablet RxNorm: 517112 1 Tablet(s) PO daily 11/14/2018 04/12/2019 Active doxepin 10 mg capsule RxNorm: 4627935 1 Capsule(s) PO QHS as needed insomnia 10/31/2018 01/28/2019 Active Kenalog 40 mg/mL suspension for injection RxNorm: 1007865 Milliliter(s) Inj 09/26/2018 09/26/2018 Inactive Augmentin 875 mg-125 mg tablet RxNorm: 737336 1 Tablet(s) PO BID 09/26/2018 10/05/2018 Inactive escitalopram 20 mg tablet RxNorm: 192694 1 Tablet(s) PO QPM 06/27/2018 01/22/2019 Active lisinopril 10 mg tablet RxNorm: 767183 1 Tablet(s) PO daily 06/21/2018 11/13/2018 Inactive escitalopram 10 mg tablet RxNorm: 317261 1 Tablet(s) PO QPM 05/11/2018 06/26/2018 Inactive lisinopril 10 mg tablet RxNorm: 142230 1 Tablet(s) PO daily 05/11/2018 06/20/2018 Inactive alprazolam 0.5 mg tablet RxNorm: 319176 TAKE ONE-HALF TO ONE TABLET BY MOUTH EVERY 6 HOURS NEEDED 09/20/2017 10/04/2017 Inactive Augmentin 875 mg-125 mg tablet RxNorm: 350406 1 Tablet(s) PO BID 03/08/2017 03/17/2017 Inactive alprazolam 0.5 mg tablet RxNorm: 042536 Tablet(s) PO Q6 as needed TAKE ONE-HALF TO ONE TABLET BY MOUTH EVERY 6 HOURS NEEDED 12/24/2016 01/22/2017 Inactive triamcinolone acetonide 0.5 % topical cream RxNorm: 0430826 1 Application TOP BID 09/06/2016 09/15/2016 Inactive Levaquin 500 mg tablet RxNorm: 210045 1 Tablet(s) PO daily 07/08/2016 07/14/2016 Inactive please call her when ready Levaquin 500 mg tablet RxNorm: 482146 1 Tablet(s) PO daily 07/08/2016 07/07/2016 Inactive alprazolam 0.5 mg tablet RxNorm: 577938 Tablet(s) PO Q6 as needed TAKE ONE-HALF TO ONE TABLET BY MOUTH EVERY 6 HOURS NEEDED 04/26/2016 12/23/2016 Inactive Generic For:*XANAX 0.5 MG TABLET 05/16/2013 1:18:18 PM (Appended: Controlled substance eRx refill - RxReferenceNumber: [id number]) alprazolam 0.5 mg tablet RxNorm: 875957 Tablet(s) PO Q6 as needed TAKE ONE-HALF TO ONE TABLET BY MOUTH EVERY 6 HOURS NEEDED 04/26/2016 09/19/2017 Inactive Generic For:*XANAX 0.5 MG TABLET 05/16/2013 1:18:18 PM (Appended: Controlled substance eRx refill - RxReferenceNumber: [id number]) betamethasone dipropionate 0.05 % topical cream RxNorm: 373274 1 TOP UD 1-2 x per day PRN 01/16/2016 No Stop Date Active Kenalog 40 mg/mL suspension for injection RxNorm: 4745241 Milliliter(s) Inj 01/14/2016 01/14/2016 Inactive prednisone 20 mg tablet RxNorm: 449761 2 Tablet(s) PO daily 01/14/2016 01/18/2016 Inactive alprazolam 0.5 mg tablet RxNorm: 564592 Tablet(s) PO Q6 as needed TAKE ONE-HALF TO ONE TABLET BY MOUTH EVERY 6 HOURS NEEDED 09/26/2015 04/25/2016 Inactive Generic For:*XANAX 0.5 MG TABLET 05/16/2013 1:18:18 PM (Appended: Controlled substance eRx refill - RxReferenceNumber: [id number]) azithromycin 250 mg tablet RxNorm: 332678 1 Tablet(s) PO UD 2 pills day one and 1 pill day 2-5 08/29/2015 09/02/2015 Inactive Keflex 500 mg capsule RxNorm: 908472 1 Capsule(s) PO TID 02/03/2015 02/09/2015 Inactive take a probiotic while on the abt Keflex 500 mg capsule RxNorm: 162800 1 Capsule(s) PO TID 02/03/2015 02/02/2015 Inactive take a probiotic while on the abt hydrocodone 5 mg-acetaminophen 325 mg tablet RxNorm: 114357 1 Tablet(s) PO Q6 PRN 01/27/2015 08/16/2015 Inactive Kenalog 40 mg/mL suspension for injection RxNorm: 7669734 2 Milliliter(s) Inj 05/02/2014 05/02/2014 Inactive Zithromax Z-Tomás 250 mg tablet RxNorm: 796631 1 Tablet(s) PO QPM 05/02/2014 05/06/2014 Inactive Rocephin 500 mg solution for injection RxNorm: 328707 1 Milliliter(s) Inj 05/02/2014 05/02/2014 Inactive metoprolol tartrate 25 mg tablet RxNorm: 454438 1/2 Tablet(s) PO BID TAKE ONE-HALF TABLET BY MOUTH TWICE DAILY 11/05/2013 02/03/2014 Inactive vilazodone 40 mg tablet RxNorm: 4936080 1 Tablet(s) PO daily 08/09/2013 02/03/2014 Inactive Zithromax Z-Tomás 250 mg tablet RxNorm: 402127 Tablet(s) PO 07/17/2013 11/04/2013 Inactive Rocephin 500 mg Solution for Injection RxNorm: 153017 Inj 07/17/2013 07/17/2013 Inactive Kenalog 40 mg/mL Susp for Injection RxNorm: 9348530 1 Milliliter(s) Inj 06/07/2013 06/07/2013 Inactive alprazolam 0.5 mg tablet RxNorm: 309057 1/2-1 Tablet(s) PO Q6 PRN 05/17/2013 No Stop Date Active alprazolam 0.5 mg tablet RxNorm: 169909 Tablet(s) PO TAKE ONE-HALF TO ONE TABLET BY MOUTH EVERY 6 HOURS NEEDED 05/17/2013 09/25/2015 Inactive Generic For:*XANAX 0.5 MG TABLET 05/16/2013 1:18:18 PM (Appended: Controlled substance eRx refill - RxReferenceNumber: [id number]) metoprolol tartrate 25 mg tablet RxNorm: 837242 Tablet(s) PO TAKE ONE-HALF TABLET BY MOUTH TWICE DAILY 02/12/2013 11/04/2013 Inactive metoprolol tartrate 25 mg tablet RxNorm: 752792 1/2 Tablet(s) PO BID 01/29/2013 05/28/2013 Inactive alprazolam 0.5 mg tablet RxNorm: 876094 1/2-1 Tablet(s) PO Q6 PRN 11/28/2012 05/17/2013 Inactive lisinopril 10 mg tablet RxNorm: 098890 1 Tablet(s) PO daily 10/30/2012 01/28/2013 Inactive vilazodone 40 mg tablet RxNorm: 3460151 1 Tablet(s) PO daily 08/08/2012 02/03/2013 Inactive metoprolol tartrate 25 mg tablet RxNorm: 028617 1/2 Tablet(s) PO BID 06/07/2012 10/04/2012 Inactive amoxicillin-potassium clavulanate 500 mg-125 mg tablet RxNorm: 595693 1 Tablet(s) PO TID 06/07/2012 06/13/2012 Inactive Ambien 5 mg tablet RxNorm: 885116 1 Tablet(s) PO HS PRN 05/02/2012 05/31/2012 Inactive lisinopril 10 mg tablet RxNorm: 792730 1 Tablet(s) PO daily 11/09/2011 06/05/2012 Inactive pramipexole 0.5 mg Tab RxNorm: 592247 1/2 Tablet(s) PO QHS 11/01/2011 01/29/2012 Inactive pramipexole 0.5 mg Tab RxNorm: 605724 1 Tablet(s) PO QHS 10/27/2011 10/31/2011 Inactive Fish Oil 1,200 mg-144 mg-216 mg Cap RxNorm: 1 Capsule(s) PO daily No Start Date Active potassium 99 mg Tab RxNorm: 1 Tablet(s) PO daily No Start Date 10/29/2012 Inactive betamethasone dipropionate 0.05 % topical cream RxNorm: 698335 1 TOP UD 1-2 x per day PRN No Start Date 01/15/2016 Inactive alprazolam 0.5 mg tablet RxNorm: 000722 1/2-1 Tablet(s) PO Q6 PRN No Start Date 11/27/2012 Inactive Ambien 5 mg tablet RxNorm: 200279 1 Tablet(s) PO HS PRN No Start Date 05/01/2012 Inactive calcium & magnesium carbonates 311 mg-232 mg Tab RxNorm: 036682 1 Tablet(s) PO BID No Start Date 10/29/2012 Inactive multivitamin Tab RxNorm: 1 Tablet(s) PO daily No Start Date 10/29/2012 Inactive vilazodone 40 mg tablet RxNorm: 0699118 1 Tablet(s) PO daily No Start Date 08/07/2012 Inactive Zithromax Z-Tomás 250 mg tablet RxNorm: 431866 Tablet(s) PO No Start Date 07/16/2013 Inactive Medication Administered Medication Codes Instructions Start Date Status Kenalog 40 mg/mL suspension for injection RxNorm: 0588126 Milliliter 09/26/2018 No longer Active Kenalog 40 mg/mL suspension for injection RxNorm: 7013391 Milliliter 01/14/2016 No longer Active Kenalog 40 mg/mL suspension for injection RxNorm: 2220616 2Milliliter 05/02/2014 No longer Active Rocephin 500 mg solution for injection RxNorm: 330005 1Milliliter 05/02/2014 No longer Active Rocephin 500 mg Solution for Injection RxNorm: 593170 07/17/2013 No longer Active Kenalog 40 mg/mL Susp for Injection RxNorm: 2227159 1Milliliter 06/07/2013 No longer Active Immunizations Vaccine [...] Pain, unspecified ICD-10: R52 ICD-9: 780.96 07/08/2016 Cough ICD-10: R05 ICD-9: 786.2 07/08/2016 Fever, unspecified ICD-10: R50.9 ICD-9: 780.60 07/08/2016 Rash and other nonspecific skin eruption ICD-10: R21 ICD-9: 782.1 01/14/2016 Pain in left shoulder ICD-10: M25.512 ICD-9: 719.41 11/17/2015 Bicipital tendinitis, left shoulder ICD-10: M75.22 ICD-9: 726.12 11/17/2015 Pain in right shoulder ICD-10: M25.511 ICD-9: 719.41 11/17/2015 Epigastric pain ICD-10: R10.13 ICD-9: 789.06 08/29/2015 Acute upper respiratory infection, unspecified ICD-10: J06.9 ICD-9: 465.9 08/29/2015 Other screening mammogram ICD-9: V76.12 05/14/2015 [...] NEC ICD-9: 311 11/05/2013 ESSENTIAL HYPERTENSION SNOMED: 57950691 ICD-9: 401.9 11/05/2013 ACUTE BRONCHITIS ICD-9: 466.0 07/17/2013 COUGH ICD-9: 786.2 06/07/2013 OBESITY ICD-9: 278.00 10/30/2012 HYPERLIPIDEMIA ICD-9: 272.4 07/12/2012 Palpitations ICD-9: 785.1 06/07/2012 Changing mole ICD-9: 216.9 11/09/2011 Restless leg syndrome ICD-9: 333.94 10/27/2011 Reason For Visit Reason For Visit Effective Dates Notes hypertension 10/31/2018 sinus congestion 09/26/2018 hypertension 06/27/2018 [...] Observation Code Item Item Code Result Date Comp Metabolic Vsz941 NA 134 mEq/L 07/08/2016 Comp Metabolic Zcj455 K 3.9 mEq/L 07/08/2016 Comp Metabolic Rtx265 CL 101 mEq/L 07/08/2016 Comp Metabolic Jgx361 CO2 27.0 mEq/L 07/08/2016 Comp Metabolic Dme679 ANION GAP 10 07/08/2016 Comp Metabolic Reo966 GLUCOSE 120 mg/dL 07/08/2016 Comp Metabolic Hfu836 Creat 0.9 mg/dL 07/08/2016 Comp Metabolic Kwi050 eGFR 71 ml/min/1.73m2 07/08/2016 Comp Metabolic Zvu183 BUN 16 mg/dL 07/08/2016 Comp Metabolic Vgm574 B/C Ratio 18.4 Ratio 07/08/2016 Comp Metabolic Zol282 CALCIUM 10.0 mg/dL 07/08/2016 Comp Metabolic Qtc443 ALK PHOS 57 U/L 07/08/2016 Comp Metabolic Jmj941 AST(SGOT) 21 U/L 07/08/2016 Comp Metabolic Vmt868 ALT(SGPT) 20 U/L 07/08/2016 Comp Metabolic Ied548 BILI T 1.1 mg/dL 07/08/2016 Comp Metabolic Ejr899 ALBUMIN 3.9 g/dL 07/08/2016 Comp Metabolic Fxj775 TPRO 6.2 g/dL 07/08/2016 Comp Metabolic Ykw154 GLOB 2.4 g/dL 07/08/2016 Comp Metabolic Yxt181 A/G Ratio 1.6 Ratio 07/08/2016 Comp Metabolic Ttj377 Osmo 271 mOsmo 07/08/2016 Cbc With Differential Ord2 WBC 16.40 [...] 29.7 pg 07/08/2016 Cbc With Differential Ord2 [place]% 6.8 % 07/08/2016 Cbc With Differential Ord2 MCHC 33.1 pg 07/08/2016 Cbc With Differential Ord2 Eos% 0.0 % 07/08/2016 Cbc With Differential Ord2 Baso% 0.1 % 07/08/2016 Cbc With Differential Ord2 PLT 273 K/ul 07/08/2016 Cbc With Differential Ord2 RDW 13.6 % 07/08/2016 Cbc With Differential Ord2 Neut ABS# 14.08 K/ul 07/08/2016 Cbc With Differential Ord2 Lymph ABS# 1.19 K/ul 07/08/2016 Cbc With Differential Ord2 [place] ABS# 1.1 K/ul 07/08/2016 Cbc With Differential Ord2 Eos ABS# 0.0 K/ul 07/08/2016 Cbc With Differential Ord2 Baso ABS# 0.0 K/ul 07/08/2016 Influenza A+B Exs565 Influ A+B Negative 07/08/2016 Cbc With Differential Ord2 WBC 7.9 K/uL [...] With Differential Ord2 RDW 13.5 % 08/29/2015 Comp Metabolic Bsy556 NA 130 mEq/L 08/29/2015 Comp Metabolic Tcu933 K 4.0 mEq/L 08/29/2015 Comp Metabolic Cnp328 CL 99 mEq/L 08/29/2015 Comp Metabolic Qdw289 CO2 21.0 mEq/L 08/29/2015 Comp Metabolic Lbl604 ANION GAP 14 08/29/2015 Comp Metabolic Jay040 GLUCOSE 105 mg/dL 08/29/2015 Comp Metabolic Ihy193 Creat 1.0 mg/dL 08/29/2015 Comp Metabolic Qfw266 eGFR 62 ml/min/1.73m2 08/29/2015 Comp Metabolic Std620 BUN 8 mg/dL 08/29/2015 Comp Metabolic Ffi755 B/C Ratio 8.2 Ratio 08/29/2015 Comp Metabolic Mzy688 CALCIUM 9.9 mg/dL 08/29/2015 Comp Metabolic Rlp041 ALK PHOS 93 U/L 08/29/2015 Comp Metabolic Osv901 AST(SGOT) 16 U/L 08/29/2015 Comp Metabolic Qnx983 ALT(SGPT) 22 U/L 08/29/2015 Comp Metabolic Ecn287 BILI T 0.6 mg/dL 08/29/2015 Comp Metabolic Rds867 ALBUMIN 4.3 g/dL 08/29/2015 Comp Metabolic Jkb697 TPRO 6.7 g/dL 08/29/2015 Comp Metabolic Xgh840 GLOB 2.4 g/dL 08/29/2015 Comp Metabolic Bvu060 A/G Ratio 1.8 Ratio 08/29/2015 Comp Metabolic Hvh285 Osmo 259 mOsmo 08/29/2015 Review of Systems System Result Effective Dates Constitutional No recent illness 10/31/2018 Constitutional No [...] Exam - General 1995 Eyes conjunctiva/eyelids Overall: eyelids normal 07/17/2013 None Full Exam - General 1995 Eyes conjunctiva/eyelids Overall: cornea clear 07/17/2013 None [...] lesions 07/17/2013 None Full Exam - General 1995 Ears/Nose/Throat otoscopic exam Tympanic membrane: perforated 07/17/2013 [...] unsteadiness 10/30/2012 None Full Exam - General 1995 [...] size 10/27/2011 None Full Exam - General 1995 Neck thyroid Overall: no mass lesions 10/27/2011 [...] Date TRIAMCINOLONE ACET INJ NOS CPT-4: J3301 09/26/2018 THER/PROPH/DIAG INJ SC/IM CPT-4: 98549 09/26/2018 IMMUNIZATION ADMIN CPT- 4: 66656 06/27/2018 FLU VAC NO PRSV 4 RAHUL 3 YRS+ Formatting Model/CDA Sections, Assigned to/Zonia Martinez CPT-4: 82921Lorovdg 06/27/2018 IMMUNIZATION ADMIN CPT- 4: 26667 07/30/2016 IIV4 FLU VACC NO PRESERV ID SNOMED CT: 51060632 CPT-4: 65080 07/30/2016 TRIAMCINOLONE ACET INJ NOS CPT-4: J3301 01/14/2016 IMMUNIZATION ADMIN CPT- 4: 39177 07/23/2015 IMMUNIZATION ADMIN EACH ADD CPT-4: 00669 07/23/2015 FLU VACC 4 RAHUL 3 YRS PLUS IM Formatting Model/CDA Sections, Assigned to SNOMED CT: 75406585 CPT-4: 15244Srrxmjw 07/23/2015 THER/PROPH/DIAG INJ SC/IM CPT-4: 05579 05/02/2014 ROCEPHIN, PER 250 MG CPT- 4: J0696 05/02/2014 TRIAMCINOLONE ACET INJ NOS CPT-4: J3301 05/02/2014 ROCEPHIN, PER 250 MG CPT- 4: J0696 07/17/2013 TRIAMCINOLONE ACET INJ NOS CPT-4: J3301 06/07/2013 BIOPSY SKIN LESION CPT- 4: 33760 11/09/2011 Vital Signs Date Vital 10/31/2018 Blood Pressure 1: 126/78 Code: 8480-6 BMI: 32.7 Code: 06748-4 Heart Rate 1: 75 bpm Height: 5'8" SpO2: 97% Weight: 215 lbs 09/26/2018 Blood Pressure 1: 130/78 Code: 8480-6 BMI: 32.4 Code: 22682-8 Heart Rate 1: 67 bpm Height: 5'8" SpO2: 97% Temperature: 36.5 (C) / 97.7 (F) Weight: 213 lbs 06/27/2018 Blood Pressure 1: 132/78 Code: 8480-6 BMI: 33.9 Code: 51450-6 Heart Rate 1: 66 bpm Height: 5'8" SpO2: 95% Weight: 223 lbs 05/11/2018 Blood Pressure 1: 140/90 Code: 8480-6 BMI: 33.8 Code: 80764-5 Heart Rate 1: 74 bpm Height: 5'8" SpO2: 98% Weight: 222 lbs 03/08/2017 Blood Pressure 1: 144/86 Code: 8480-6 BMI: 31.2 Code: 32424-7 Heart Rate 1: 70 bpm Height: 5'8" SpO2: 98% Weight: 205 lbs 09/06/2016 Blood Pressure 1: 128/86 Code: 8480-6 BMI: 28.4 Code: 09197-3 Heart Rate 1: 86 bpm Height: 5'8" SpO2: 96% Weight: 187 lbs 07/08/2016 Blood Pressure 1: 120/60 Code: 8480-6 BMI: 28.4 Code: 12163-5 Height: 5'8" Temperature: 37.8 (C) / 100.1 (F) Weight: 187 lbs 01/14/2016 Blood Pressure 1: 152/86 Code: 8480-6 BMI: 30.4 Code: 51549-3 Heart Rate 1: 83 bpm Height: 5'8" SpO2: 97% Weight: 200 lbs 11/17/2015 Blood Pressure 1: 142/90 Code: 8480-6 BMI: 33.9 Code: 70434-7 Heart Rate 1: 75 bpm Height: 5'8" SpO2: 97% Weight: 223 lbs 08/29/2015 BMI: 35.6 Code: 62143-0 Heart Rate 1: 94 bpm Height: 5'8" SpO2: 98% Weight: 234 lbs 01/27/2015 Blood Pressure 1: 140/94 Code: 8480-6 Heart Rate 1: 88 bpm Height: 5'8" SpO2: 98% Weight: 08/05/2014 Blood Pressure 1: 138/82 Code: 8480-6 BMI: 33.6 Code: 64467-9 Heart Rate 1: 76 bpm Height: 5'8" Weight: 221 lbs 05/02/2014 Blood Pressure 1: 142/82 Code: 8480-6 Heart Rate 1: 84 bpm Height: SpO2: 100% Temperature: 37.1 (C) / 98.7 (F) Weight: 02/04/2014 Blood Pressure 1: 108/78 Code: 8480-6 BMI: 36.2 Code: 24746-7 Heart Rate 1: 60 bpm Height: 5'8" Weight: 238 lbs 11/05/2013 Blood Pressure 1: 134/74 Code: 8480-6 BMI: 35.9 Code: 17647-3 Heart Rate 1: 68 bpm Height: 5'8" Weight: 236 lbs 07/17/2013 Blood Pressure 1: 136/88 Code: 8480-6 BMI: 35.9 Code: 41789-3 Heart Rate 1: 72 bpm Height: 5'8" Temperature: 36.4 (C) / 97.6 (F) Weight: 236 lbs 06/07/2013 Blood Pressure 1: 134/92 Code: 8480-6 Heart Rate 1: 72 bpm Temperature: 37.0 (C) / 98.6 (F) Weight: 04/30/2013 Blood Pressure 1: 148/78 Code: 8480-6 BMI: 35.1 Code: 24989-8 Heart Rate 1: 64 bpm Height: 5'8" Weight: 231 lbs 01/29/2013 Blood Pressure 1: 128/84 Code: 8480-6 BMI: 34.4 Code: 40767-6 Heart Rate 1: 76 bpm Height: 5'8" Weight: 226 lbs 10/30/2012 Blood Pressure 1: 118/72 Code: 8480-6 BMI: 33.5 Code: 63763-4 Heart Rate 1: 64 bpm Height: 5'8" Weight: 220 lbs 07/12/2012 Blood Pressure 1: 134/88 Code: 8480-6 Heart Rate 1: 64 bpm Weight: 214 lbs 06/07/2012 Blood Pressure 1: 152/92 Code: 8480-6 Heart Rate 1: 68 bpm Respiratory Rate: 16 bpm Temperature: 36.7 (C) / 98.0 (F) Weight: 209 lbs 12/01/2011 Blood Pressure 1: 140/82 Code: 8480-6 BMI: 29.5 Code: 65318-6 Heart Rate 1: 72 bpm Height: 5'8" [...] 1: 144/90 Code: 8480-6 BMI: 29.3 Code: 38249-4 Heart Rate 1: 76 bpm Height: 5'8" Respiratory Rate: 16 bpm Weight: 193 lbs Functional Status No Functional Status data History of Present Illness Symptom Name Status Result Effective Date Notes Quality intermittent 10/31/2018 None Onset and Resolution [...] data Encounters Encounter Performer Location Codes Date () [id number] EST. PATIENT, LEVEL III Diagnosis: Essential (primary) hypertension[ICD10: I10] Diagnosis: Major depressive disorder, recurrent, moderate[ICD10: F33.1] Diagnosis: Other insomnia[ICD10: G47.09] Verona Olivares MD, [facility] CPT-4: 24614 10/31/2018 69226 EST. PATIENT, LEVEL III Diagnosis: Acute laryngopharyngitis[ICD10: J06.0] Diagnosis: Other allergic rhinitis[ICD10: J30.89] Solange Olivares MD, [facility] CPT- 4: 99224 09/26/2018 [id number] 43891 EST. PATIENT, LEVEL III Diagnosis: Essential (primary) hypertension[ICD10: I10] Diagnosis: Major depressive disorder, recurrent, moderate[ICD10: F33.1] Diagnosis: Generalized anxiety disorder[ICD10: F41.1] Diagnosis: Encounter for immunization[ICD10: Z23] Verona Olivares MD, [facility] CPT-4: 66164 06/27/2018 [id number]) 85981 EST. PATIENT, LEVEL IV Diagnosis: Essential (primary) hypertension[ICD10: I10] Diagnosis: Major depressive disorder, recurrent, moderate[ICD10: F33.1] Diagnosis: Generalized anxiety disorder[ICD10: F41.1] Verona Olivares MD, [facility] CPT-4: 52458 05/11/2018 46006 14166 EST. PATIENT, LEVEL III Diagnosis: Acute recurrent maxillary sinusitis[ICD10: J01.01] Diagnosis: Other hallucinations[ICD10: R44.2] Diagnosis: Allergic rhinitis due to pollen[ICD10: J30.1] Che Olivares MD, [facility] CPT-4: 58140 03/08/2017 69408 40691 EST. PATIENT, LEVEL II Diagnosis: Cellulitis of right upper limb[ICD10: L03.113] Che Olivares MD, [facility] CPT-4: 25231 09/06/2016 ([id number]) 37686 EST. PATIENT, LEVEL III Diagnosis: Cough[ICD10: R05] Diagnosis: Fever, unspecified[ICD10: R50.9] Diagnosis: Pain, unspecified[ICD10: R52] Che Olivares MD, [facility] CPT-4: 28259 07/08/2016 39937 EST. PATIENT, LEVEL IV Diagnosis: Rash and other nonspecific skin eruption[ICD10: R21] Solange Olivares MD, [facility] CPT-4: 42594 01/14/2016 ([id number]) 76609 EST. PATIENT, LEVEL III Diagnosis: Pain in left shoulder[ICD10: M25.512] Diagnosis: Pain in right shoulder[ICD10: M25.511] Diagnosis: Bicipital tendinitis, left shoulder[ICD10: M75.22] Che Olivares MD, [facility] CPT-4: 08038 11/17/2015 75351 EST. PATIENT, LEVEL IV Diagnosis: Epigastric pain[ICD10: R10.13] Diagnosis: Acute upper respiratory infection, unspecified[ICD10: J06.9] Solange Olivares MD, [facility] CPT-4: 37261 08/29/2015 ([id number]) 92953 EST. PATIENT, LEVEL III Diagnosis: Left knee pain[ICD9: 719.46] Diagnosis: ACUTE URI[ICD9: 465.9] Diagnosis: ALLERGIC RHINITIS[ICD9: 477.9] Ceh Olivares MD, [facility] CPT-4: 12963 01/27/2015 ([id number]) 58486 EST. PATIENT, LEVEL III Diagnosis: Elevated blood pressure (not hypertension)[ICD9: 796.2] Diagnosis: Biceps tendinitis[ICD9: 726.12] Diagnosis: Wrist pain, acute[ICD9: 719.43] Verona Olivares MD, [facility] CPT-4: 69200 08/05/2014 ([id number]) 48967 EST. PATIENT, LEVEL III Diagnosis: Acute maxillary sinusitis[ICD9: 461.0] Verona Olivares MD [facility] CPT-4: 63909 05/02/2014 ([id number]) 47040 EST. PATIENT, LEVEL III Diagnosis: INSOMNIA IN OTHER DIS[ICD9: 327.01] Verona Olivares MD [facility] CPT- 4: 59897 02/04/2014 ([id number]) 13678 EST. PATIENT, LEVEL III Diagnosis: ESSENTIAL HYPERTENSION[SNOMED: 07418949] Diagnosis: DEPRESSIVE DISORDER NEC[ICD9: 311] Verona Olivares MD, [facility] CPT- 4: 45055 11/05/2013 ([id number]) 57857 EST. PATIENT, LEVEL III Diagnosis: ACUTE BRONCHITIS[ICD9: 466.0] Che Olivares MD [facility] CPT-4: 05135 07/17/2013 ([id number]) 61607 EST. PATIENT, LEVEL III Diagnosis: ACUTE URI[ICD9: 465.9] Diagnosis: COUGH[ICD9: 786.2] Diagnosis: ALLERGIC RHINITIS[ICD9: 477.9] Che Olivares MD, [facility] CPT-4: 66173 06/07/2013 ([id number]) 06836 EST. PATIENT, LEVEL III Diagnosis: ESSENTIAL HYPERTENSION[SNOMED: 46821637] Diagnosis: DEPRESSIVE DISORDER NEC[ICD9: 311] Verona Olivares MD [facility] CPT- 4: 58870 04/30/2013 ([id number]) 49087 EST. PATIENT, LEVEL III Diagnosis: ESSENTIAL HYPERTENSION[SNOMED: 75867909] Diagnosis: DEPRESSIVE DISORDER NEC[ICD9: 311] Verona Olivares MD [facility] CPT- 4: 88609 01/29/2013 ([id number]) 11269 EST. PATIENT, LEVEL IV Diagnosis: ESSENTIAL HYPERTENSION[SNOMED: 07905625] Diagnosis: DEPRESSIVE DISORDER NEC[ICD9: 311] Diagnosis: OBESITY[ICD9: 278.00] Verona Olivares MD, [facility] CPT-4: 53899 10/30/2012 ([id number]) 43253 EST. PATIENT, LEVEL III Diagnosis: ESSENTIAL HYPERTENSION[SNOMED: 53142299] Diagnosis: HYPERLIPIDEMIA[ICD9: 272.4] Diagnosis: DEPRESSIVE DISORDER NEC[ICD9: 311] Verona Olivares MD, [facility] CPT- 4: 41454 07/12/2012 ([id number]) 91383 EST. PATIENT, LEVEL IV Diagnosis: ESSENTIAL HYPERTENSION[SNOMED: 41488631] Diagnosis: DEPRESSIVE DISORDER NEC[ICD9: 311] Diagnosis: Palpitations[ICD9: 785.1] Diagnosis: Acute maxillary sinusitis[ICD9: 461.0] ABDIAS Monroe MD CPT-4: 94810 06/07/2012 68680 EST. PATIENT, LEVEL IV Diagnosis: ESSENTIAL HYPERTENSION[SNOMED: 56420722] Diagnosis: COUGH[ICD9: 786.2] Diagnosis: Upper respiratory infection[ICD9: 465.9] ABDIAS Monroe MD CPT-4: 00992 12/01/2011 ([id number]) 05756 EST. PATIENT, LEVEL III Diagnosis: ESSENTIAL HYPERTENSION[SNOMED: 45656794] ABDIAS Monroe MD CPT-4: 08696 11/18/2011 ([id number]) [id number] EST. PATIENT, LEVEL III Diagnosis: ESSENTIAL HYPERTENSION[SNOMED: 28496767] Verona Olivares MD, ABDIAS CPT-4: 43656 11/09/2011 ([id number]) OFFICE VISIT, NEW - LEVEL 4 Diagnosis: Restless leg syndrome[ICD9: 333.94] Diagnosis: INSOMNIA IN OTHER DIS[ICD9: 327.01] Diagnosis: Elevated blood pressure (not hypertension)[ICD9: 796.2] Verona Olivares MD, [facility] CPT-4: 52006 10/27/2011 Plan of Care Planned Activity Notes Codes Status Date Visit Plan: Hypertension - well controlled - [...] medications. 10/31/2018 Appointment: Ver[facility]ares [phone] (15 min) Moderate 10/31/2018 Patient Education: Patient [...] spray. 09/26/2018 App[facility]ment: [phone] [place] Portal Appointment Requests 09/26/2018 Appointment: Solange Snyder WPtel: [facility] (15 min) Moderate 09/26/2018 Patient Education: Patient [...] 20mg nightly 06/27/2018 Appointment: Verona Olivares WPtel: [phone] [facility] (15 min) Moderate 06/27/2018 Patient Education: Patient Medication Summary Completed 06/27/2018 Patient Education: Depression Completed 06/27/2018 Appointment: Verona Olivares WPtel: [phone] [facility]66[facility] (15 min) Moderate 06/07/2018 Visit Plan: Hypertension [...] Start on Lexapro 10mg daily. 05/11/2018 Appointment: Marshall Verona WPtel: [phone] [phone] (15 min) Moderate 05/11/2018 Patient Education: Patient [...] not resolve 03/08/2017 Appointment: Che Garcia WPtel: [phone] (15 min) Moderate 03/08/2017 Patient Education: Patient [...] of plan. 09/06/2016 Appointment: Che Garcia WPtel: [phone] (15 min) Moderate 09/06/2016 Patient Education: Patient Medication Summary Completed 09/06/2016 Appointment: Injection 07/30/2016 Patient Education: Patient Medication Summary Completed 07/30/2016 Visit Plan: Klakv-iqbit-zzvk aches-patient sent for stat labs and influenza swab-will treat as indicated-instructed patient we will call her with the results of her testings-tylenol/motrin as needed for fever, increase po fluids. Patient verbalized understanding of plan. 07/08/2016 Appointment: Che Garcia WPtel: [phone] (15 min) Moderate 07/08/2016 Patient Education: [...] resolve. 01/27/2015 Appointment: Che Garcia WPtel: [phone] [phone] [facility] 01/27/2015 Patient Education: Patient Medication Summary Completed [...] pressures. 08/05/2014 Appointment: Verona Olivares WPtel: [phone] [facility] [place] Follow up 08/05/2014 Patient Education: Patient [...] for sleep. 02/04/2014 Appointment: Verona Olivares WPtel: [address] [place], [place] [phone] Follow up 02/04/2014 Patient Education: Patient Medication [...] the antidepressant. 11/05/2013 Appointment: Verona Olivares WPtel: [address] [place], [place] [phone] [place] Follow up 11/05/2013 Patient Education: Patient Medication Summary Completed 11/05/2013 Patient Education: Hypertension Completed 11/05/2013 Appointment: Verona Olivares WPtel: [address] [place], [place] [id number] [place] Follow up 10/18/2013 Appointment: Verona Olivares WPtel: [address] [place], [place] [phone] [place] Follow up 08/07/2013 Visit Plan: Bronchitis - acute case of bronchitis identified. Pt has been given antibiotics, breathing treatments as appropriate, and pt has been instructed to call if symptoms are not improved, or if symptoms acutely worsen. RX sent to patient's pharmacy. 07/17/2013 Appointment: Che Garcia WPtel: [address] [place] [address] Sick 07/17/2013 Patient Education: Patient Medication Summary [...] allergy spray. 06/07/2013 Appointment: Che Garcia WPtel: [address] [place] [address] Sick 06/07/2013 Patient Education: Patient Medication Summary [...] current medications. 04/30/2013 Appointment: Verona Olivares WPtel: [address] [place], [place] [phone] Follow up 04/30/2013 Patient Education: Patient Medication [...] medications. 01/29/2013 Appointment: Verona Olivares WPtel: [phone] [facility] Follow up 01/29/2013 Patient Education: Patient Medication [...] options. 10/30/2012 Appointment: Verona Olivares WPtel: [phone] [facility] Follow up 10/30/2012 Patient Education: Patient Medication [...] current medications. 07/12/2012 Appointment: Verona Olivares WPtel: [address] [place] [address] Follow up 07/12/2012 Patient Education: Patient Medication [...] above medications. 06/07/2012 Appointment: Verona Olivares WPtel: [facility] [place] Other 06/07/2012 Patient Education: Patient Medication Summary Completed 06/07/2012 Patient Education: High Blood Pressure: Essential Hypertension Completed 06/07/2012 Appointment: Verona Olivares WPtel: [address] [place], [place] [phone] Other 05/29/2012 Visit Plan: Hypertension - well [...] for cough 12/01/2011 Appointment: Verona Olivares WPtel: [phone] [phone] Follow up 12/01/2011 Patient Education: Patient Medication [...] change today. 11/18/2011 Appointment: Verona Olivares WPtel: [phone] [phone] Other 11/18/2011 Patient Education: Patient Medication Summary [...] acute conerns. 11/09/2011 Appointment: [id number] [facility] 11/09/2011 Patient Education: Patient Medication [...] the diet. 10/27/2011 Appointment: Verona [facility]ares [facility]el[phone] New Patient 10/27/2011 Patient Education: Patient Medication Summary Completed 10/27/2011 Patient Education: Restless Legs Syndrome Completed 10/27/2011 Patient Education: Insomnia Completed 10/27/2011 Instructions Comment extended release melatonin you can take up [...] mupirocin ointment. Patient verbalized understanding of plan. Pt to use voltaren gel 2 grams [...] of improved blood pressures. . Hypertension - well controlled - continue [...] drainage, or any other acute conerns. . Hypertension - well controlled - continue [...] pt to be used for cough . Vfycn-zfjwc-[id number] aches-patient sent for stat labs and influenza [...] call if symptoms are not improved. . Hypertension - uncontrolled - the patient's [...] help- therefore recommended L-tryptophan for sleep. . Sinusitis - Pt has acute infection [...] sinus infection-call if symptoms do not resolve Prednisone 40mg a day, you can split the dose to 20mg in the morning and at noon. Steroid shot today, call me if it gets worse or does not seem to be improving. . Rash - RX given, pt is to notify clinic if rash does not improve, if it worsens, or with any concerns. CONTINUE ANTI INFLAMMATORIES DIRECTED TAKE PAIN MEDICATION [...]
--- OUTSIDE RECORDS SUMMARY | 2019-03-02 10:48 | XMS REPORT | CCD ---
Author Author Verona Olivares Organization Verona Olivares MD, [facility] Address [address] [place] [address] Phone Care Team Providers Care Features Reporter Name Role Phone Verona Olivares PP Unavailable CCM Unavailable Summary Purpose Interface Exchange Insurance Providers Payer name Policy type / Coverage type Covered republican ID Effective Begin Date Effective End Date [facility] [id number] 2016 Unknown Family history Mother Diagnosis Age [...] Currently employed 10/27/[address]: 654281933 Never smoker 10/27/[address]: 556594516 Never drinks alcohol 10/27/2011 Has the patient [...] Start Date Stop Date Status Fill Instructions doxepin 10 mg capsule RxNorm: 3141950 1 Capsule(s) PO QHS as needed insomnia 10/31/2018 01/28/2019 Active Kenalog 40 mg/mL suspension for injection RxNorm: 7768071 Milliliter(s) Inj 09/26/2018 09/26/2018 Inactive Augmentin 875 mg-125 mg tablet RxNorm: 552208 1 Tablet(s) PO BID 09/26/2018 10/05/2018 Inactive escitalopram 20 mg tablet RxNorm: 916369 1 Tablet(s) PO QPM 06/27/2018 01/22/2019 Active lisinopril 10 mg tablet RxNorm: 700020 1 Tablet(s) PO daily 06/21/2018 11/17/2018 Active escitalopram 10 mg tablet RxNorm: 992332 1 Tablet(s) PO QPM 05/11/2018 06/26/2018 Inactive lisinopril 10 mg tablet RxNorm: 981857 1 Tablet(s) PO daily 05/11/2018 06/20/2018 Inactive alprazolam 0.5 mg tablet RxNorm: 912617 TAKE ONE-HALF TO ONE TABLET BY MOUTH EVERY 6 HOURS NEEDED 09/20/2017 10/04/2017 Inactive Augmentin 875 mg-125 mg tablet RxNorm: 348257 1 Tablet(s) PO BID 03/08/2017 03/17/2017 Inactive alprazolam 0.5 mg tablet RxNorm: 358124 Tablet(s) PO Q6 as needed TAKE ONE-HALF TO ONE TABLET BY MOUTH EVERY 6 HOURS NEEDED 12/24/2016 01/22/2017 Inactive triamcinolone acetonide 0.5 % topical cream RxNorm: 7822210 1 Application TOP BID 09/06/2016 09/15/2016 Inactive Levaquin 500 mg tablet RxNorm: 102139 1 Tablet(s) PO daily 07/08/2016 07/14/2016 Inactive please call her when ready Levaquin 500 mg tablet RxNorm: 585885 1 Tablet(s) PO daily 07/08/2016 07/07/2016 Inactive alprazolam 0.5 mg tablet RxNorm: 043176 Tablet(s) PO Q6 as needed TAKE ONE-HALF TO ONE TABLET BY MOUTH EVERY 6 HOURS NEEDED 04/26/2016 12/23/2016 Inactive Generic For:*XANAX 0.5 MG TABLET 05/16/2013 1:18:18 PM (Appended: Controlled substance eRx refill - RxReferenceNumber: [id number]) alprazolam 0.5 mg tablet RxNorm: 664199 Tablet(s) PO Q6 as needed TAKE ONE-HALF TO ONE TABLET BY MOUTH EVERY 6 HOURS NEEDED 04/26/2016 09/19/2017 Inactive Generic For:*XANAX 0.5 MG TABLET 05/16/2013 1:18:18 PM (Appended: Controlled substance eRx refill - RxReferenceNumber: [id number]) betamethasone dipropionate 0.05 % topical cream RxNorm: 677138 1 TOP UD 1-2 x per day PRN 01/16/2016 No Stop Date Active Kenalog 40 mg/mL suspension for injection RxNorm: 2576382 Milliliter(s) Inj 01/14/2016 01/14/2016 Inactive prednisone 20 mg tablet RxNorm: 459854 2 Tablet(s) PO daily 01/14/2016 01/18/2016 Inactive alprazolam 0.5 mg tablet RxNorm: 581194 Tablet(s) PO Q6 as needed TAKE ONE-HALF TO ONE TABLET BY MOUTH EVERY 6 HOURS NEEDED 09/26/2015 04/25/2016 Inactive Generic For:*XANAX 0.5 MG TABLET 05/16/2013 1:18:18 PM (Appended: Controlled substance eRx refill - RxReferenceNumber: [id number]) azithromycin 250 mg tablet RxNorm: 150893 1 Tablet(s) PO UD 2 pills day one and 1 pill day 2-5 08/29/2015 09/02/2015 Inactive Keflex 500 mg capsule RxNorm: 713416 1 Capsule(s) PO TID 02/03/2015 02/09/2015 Inactive take a probiotic while on the abt Keflex 500 mg capsule RxNorm: 158147 1 Capsule(s) PO TID 02/03/2015 02/02/2015 Inactive take a probiotic while on the abt hydrocodone 5 mg-acetaminophen 325 mg tablet RxNorm: 136694 1 Tablet(s) PO Q6 PRN 01/27/2015 08/16/2015 Inactive Kenalog 40 mg/mL suspension for injection RxNorm: 8898869 2 Milliliter(s) Inj 05/02/2014 05/02/2014 Inactive Zithromax Z-Tomás 250 mg tablet RxNorm: 644625 1 Tablet(s) PO QPM 05/02/2014 05/06/2014 Inactive Rocephin 500 mg solution for injection RxNorm: 917327 1 Milliliter(s) Inj 05/02/2014 05/02/2014 Inactive metoprolol tartrate 25 mg tablet RxNorm: 819707 1/2 Tablet(s) PO BID TAKE ONE-HALF TABLET BY MOUTH TWICE DAILY 11/05/2013 02/03/2014 Inactive vilazodone 40 mg tablet RxNorm: 6251546 1 Tablet(s) PO daily 08/09/2013 02/03/2014 Inactive Zithromax Z-Tomás 250 mg tablet RxNorm: 706041 Tablet(s) PO 07/17/2013 11/04/2013 Inactive Rocephin 500 mg Solution for Injection RxNorm: 978664 Inj 07/17/2013 07/17/2013 Inactive Kenalog 40 mg/mL Susp for Injection RxNorm: 6551044 1 Milliliter(s) Inj 06/07/2013 06/07/2013 Inactive alprazolam 0.5 mg tablet RxNorm: 989989 1/2-1 Tablet(s) PO Q6 PRN 05/17/2013 No Stop Date Active alprazolam 0.5 mg tablet RxNorm: 471555 Tablet(s) PO TAKE ONE-HALF TO ONE TABLET BY MOUTH EVERY 6 HOURS NEEDED 05/17/2013 09/25/2015 Inactive Generic For:*XANAX 0.5 MG TABLET 05/16/2013 1:18:18 PM (Appended: Controlled substance eRx refill - RxReferenceNumber: [id number]) metoprolol tartrate 25 mg tablet RxNorm: 315950 Tablet(s) PO TAKE ONE-HALF TABLET BY MOUTH TWICE DAILY 02/12/2013 11/04/2013 Inactive metoprolol tartrate 25 mg tablet RxNorm: 352191 1/2 Tablet(s) PO BID 01/29/2013 05/28/2013 Inactive alprazolam 0.5 mg tablet RxNorm: 243981 1/2-1 Tablet(s) PO Q6 PRN 11/28/2012 05/17/2013 Inactive lisinopril 10 mg tablet RxNorm: 964598 1 Tablet(s) PO daily 10/30/2012 01/28/2013 Inactive vilazodone 40 mg tablet RxNorm: 6876196 1 Tablet(s) PO daily 08/08/2012 02/03/2013 Inactive metoprolol tartrate 25 mg tablet RxNorm: 532177 1/2 Tablet(s) PO BID 06/07/2012 10/04/2012 Inactive amoxicillin-potassium clavulanate 500 mg-125 mg tablet RxNorm: 546860 1 Tablet(s) PO TID 06/07/2012 06/13/2012 Inactive Ambien 5 mg tablet RxNorm: 803500 1 Tablet(s) PO HS PRN 05/02/2012 05/31/2012 Inactive lisinopril 10 mg tablet RxNorm: 604761 1 Tablet(s) PO daily 11/09/2011 06/05/2012 Inactive pramipexole 0.5 mg Tab RxNorm: 544618 1/2 Tablet(s) PO QHS 11/01/2011 01/29/2012 Inactive pramipexole 0.5 mg Tab RxNorm: 278781 1 Tablet(s) PO QHS 10/27/2011 10/31/2011 Inactive Fish Oil 1,200 mg-144 mg-216 mg Cap RxNorm: 1 Capsule(s) PO daily No Start Date Active potassium 99 mg Tab RxNorm: 1 Tablet(s) PO daily No Start Date 10/29/2012 Inactive betamethasone dipropionate 0.05 % topical cream RxNorm: 773007 1 TOP UD 1-2 x per day PRN No Start Date 01/15/2016 Inactive alprazolam 0.5 mg tablet RxNorm: 712662 1/2-1 Tablet(s) PO Q6 PRN No Start Date 11/27/2012 Inactive Ambien 5 mg tablet RxNorm: 377568 1 Tablet(s) PO HS PRN No Start Date 05/01/2012 Inactive calcium & magnesium carbonates 311 mg-232 mg Tab RxNorm: 005216 1 Tablet(s) PO BID No Start Date 10/29/2012 Inactive multivitamin Tab RxNorm: 1 Tablet(s) PO daily No Start Date 10/29/2012 Inactive vilazodone 40 mg tablet RxNorm: 7328106 1 Tablet(s) PO daily No Start Date 08/07/2012 Inactive Zithromax Z-Tomás 250 mg tablet RxNorm: 477809 Tablet(s) PO No Start Date 07/16/2013 Inactive Medication Administered Medication Codes Instructions Start Date Status Kenalog 40 mg/mL suspension for injection RxNorm: 1353783 Milliliter 09/26/2018 No longer Active Kenalog 40 mg/mL suspension for injection RxNorm: 6820480 Milliliter 01/14/2016 No longer Active Rocephin 500 mg solution for injection RxNorm: 224552 1Milliliter 05/02/2014 No longer Active Kenalog 40 mg/mL suspension for injection RxNorm: 8066911 2Milliliter 05/02/2014 No longer Active Rocephin 500 mg Solution for Injection RxNorm: 664369 07/17/2013 No longer Active Kenalog 40 mg/mL Susp for Injection RxNorm: 9636764 1Milliliter 06/07/2013 No longer Active Immunizations Vaccine [...] NEC ICD-9: 311 11/05/2013 ESSENTIAL HYPERTENSION SNOMED: 86833634 ICD-9: 401.9 11/05/2013 ACUTE BRONCHITIS ICD-9: 466.0 [...] Item Item Code Result Date Influenza A+B Laj756 Influ A+B Negative 07/08/2016 Cbc With Differential [...] 29.7 pg 07/08/2016 Cbc With Differential Ord2 [place]% 6.8 % 07/08/2016 Cbc With Differential Ord2 [...] 1.19 K/ul 07/08/2016 Cbc With Differential Ord2 [place] ABS# 1.1 K/ul 07/08/2016 Cbc With Differential Ord2 Eos ABS# 0.0 K/ul 07/08/2016 Cbc With Differential Ord2 Baso ABS# 0.0 K/ul 07/08/2016 Comp Metabolic Ogx695 NA 134 mEq/L 07/08/2016 Comp Metabolic Isz776 K 3.9 mEq/L 07/08/2016 Comp Metabolic Wiz645 CL 101 mEq/L 07/08/2016 Comp Metabolic Vda467 CO2 27.0 mEq/L 07/08/2016 Comp Metabolic Kfv015 ANION GAP 10 07/08/2016 Comp Metabolic Kjv233 GLUCOSE 120 mg/dL 07/08/2016 Comp Metabolic Kst418 Creat 0.9 mg/dL 07/08/2016 Comp Metabolic Eqd382 eGFR 71 ml/min/1.73m2 07/08/2016 Comp Metabolic Rzt383 BUN 16 mg/dL 07/08/2016 Comp Metabolic Zbv636 B/C Ratio 18.4 Ratio 07/08/2016 Comp Metabolic Bjt466 CALCIUM 10.0 mg/dL 07/08/2016 Comp Metabolic Cxk437 ALK PHOS 57 U/L 07/08/2016 Comp Metabolic Fyn287 AST(SGOT) 21 U/L 07/08/2016 Comp Metabolic Rtr900 ALT(SGPT) 20 U/L 07/08/2016 Comp Metabolic Pve699 BILI T 1.1 mg/dL 07/08/2016 Comp Metabolic Niw910 ALBUMIN 3.9 g/dL 07/08/2016 Comp Metabolic Riw970 TPRO 6.2 g/dL 07/08/2016 Comp Metabolic Jxa616 GLOB 2.4 g/dL 07/08/2016 Comp Metabolic Vmo684 A/G Ratio 1.6 Ratio 07/08/2016 Comp Metabolic Ylp471 Osmo 271 mOsmo 07/08/2016 Comp Metabolic Pee746 NA 130 mEq/L 08/29/2015 Comp Metabolic Lns573 K 4.0 mEq/L 08/29/2015 Comp Metabolic Tju452 CL 99 mEq/L 08/29/2015 Comp Metabolic Oml896 CO2 21.0 mEq/L 08/29/2015 Comp Metabolic Pbw760 ANION GAP 14 08/29/2015 Comp Metabolic Ime219 GLUCOSE 105 mg/dL 08/29/2015 Comp Metabolic Rrq815 Creat 1.0 mg/dL 08/29/2015 Comp Metabolic Xoj628 eGFR 62 ml/min/1.73m2 08/29/2015 Comp Metabolic Fme269 BUN 8 mg/dL 08/29/2015 Comp Metabolic Dbx659 B/C Ratio 8.2 Ratio 08/29/2015 Comp Metabolic Ekj364 CALCIUM 9.9 mg/dL 08/29/2015 Comp Metabolic Oad219 ALK PHOS 93 U/L 08/29/2015 Comp Metabolic Lwj354 AST(SGOT) 16 U/L 08/29/2015 Comp Metabolic Kcl290 ALT(SGPT) 22 U/L 08/29/2015 Comp Metabolic Rzr641 BILI T 0.6 mg/dL 08/29/2015 Comp Metabolic Sei739 ALBUMIN 4.3 g/dL 08/29/2015 Comp Metabolic Lab024 TPRO 6.7 g/dL 08/29/2015 Comp Metabolic Iiq103 GLOB 2.4 g/dL 08/29/2015 Comp Metabolic Qyb492 A/G Ratio 1.8 Ratio 08/29/2015 Comp Metabolic Frl213 Osmo 259 mOsmo 08/29/2015 Cbc With Differential [...] time 05/11/2018 None Full Exam - General [facility] Psychiatric mood and affect Overall: normal mood [...] clear 08/05/2014 None Full Exam - General 1995 Ears/Nose/Throat [...] size 06/07/2012 None Full Exam - General 1995 Neck thyroid Overall: no mass lesions 06/07/2012 [...] CPT-4: J3301 09/26/2018 THER/PROPH/DIAG INJ SC/IM CPT-4: 65008 09/26/2018 IMMUNIZATION ADMIN CPT- 4: 11341 06/27/2018 FLU VAC NO PRSV 4 RAHUL 3 YRS+ Formatting Model/CDA Sections, Assigned to/Zonia Martinez CPT-4: 04591Npxjufo 06/27/2018 IMMUNIZATION ADMIN CPT- 4: 16339 07/30/2016 IIV4 FLU VACC NO PRESERV ID SNOMED CT: 68733858 CPT-4: 76612 07/30/2016 TRIAMCINOLONE ACET INJ NOS CPT-4: J3301 01/14/2016 IMMUNIZATION ADMIN CPT- 4: 05924 07/23/2015 IMMUNIZATION ADMIN EACH ADD CPT-4: 73589 07/23/2015 FLU VACC 4 RAHUL 3 YRS PLUS IM Formatting Model/CDA Sections, Assigned to SNOMED CT: 20005985 CPT-4: 72724Elbvvrz 07/23/2015 THER/PROPH/DIAG INJ SC/IM CPT-4: 93233 05/02/2014 ROCEPHIN, PER 250 MG CPT- 4: J0696 05/02/2014 TRIAMCINOLONE ACET INJ NOS CPT-4: J3301 05/02/2014 ROCEPHIN, PER 250 MG CPT- 4: J0696 07/17/2013 TRIAMCINOLONE ACET INJ NOS CPT-4: J3301 06/07/2013 BIOPSY SKIN LESION CPT- 4: 82875 11/09/2011 Vital Signs Date Vital 10/31/2018 Blood Pressure 1: 126/78 Code: 8480-6 BMI: 32.7 Code: 08537-6 Heart Rate 1: 75 bpm Height: 5'8" SpO2: 97% Weight: 215 lbs 09/26/2018 Blood Pressure 1: 130/78 Code: 8480-6 BMI: 32.4 Code: 92776-5 Heart Rate 1: 67 bpm Height: 5'8" SpO2: 97% Temperature: 36.5 (C) / 97.7 (F) Weight: 213 lbs 06/27/2018 Blood Pressure 1: 132/78 Code: 8480-6 BMI: 33.9 Code: 85676-1 Heart Rate 1: 66 bpm Height: 5'8" SpO2: 95% Weight: 223 lbs 05/11/2018 Blood Pressure 1: 140/90 Code: 8480-6 BMI: 33.8 Code: 86864-2 Heart Rate 1: 74 bpm Height: 5'8" SpO2: 98% Weight: 222 lbs 03/08/2017 Blood Pressure 1: 144/86 Code: 8480-6 BMI: 31.2 Code: 34938-8 Heart Rate 1: 70 bpm Height: 5'8" SpO2: 98% Weight: 205 lbs 09/06/2016 Blood Pressure 1: 128/86 Code: 8480-6 BMI: 28.4 Code: 34560-6 Heart Rate 1: 86 bpm Height: 5'8" SpO2: 96% Weight: 187 lbs 07/08/2016 Blood Pressure 1: 120/60 Code: 8480-6 BMI: 28.4 Code: 61975-7 Height: 5'8" Temperature: 37.8 (C) / 100.1 (F) Weight: 187 lbs 01/14/2016 Blood Pressure 1: 152/86 Code: 8480-6 BMI: 30.4 Code: 28614-9 Heart Rate 1: 83 bpm Height: 5'8" SpO2: 97% Weight: 200 lbs 11/17/2015 Blood Pressure 1: 142/90 Code: 8480-6 BMI: 33.9 Code: 87077-2 Heart Rate 1: 75 bpm Height: 5'8" SpO2: 97% Weight: 223 lbs 08/29/2015 BMI: 35.6 Code: 15969-1 Heart Rate 1: 94 bpm Height: 5'8" SpO2: 98% Weight: 234 lbs 01/27/2015 Blood Pressure 1: 140/94 Code: 8480-6 Heart Rate 1: 88 bpm Height: 5'8" SpO2: 98% Weight: 08/05/2014 Blood Pressure 1: 138/82 Code: 8480-6 BMI: 33.6 Code: 07230-5 Heart Rate 1: 76 bpm Height: 5'8" Weight: 221 lbs 05/02/2014 Blood Pressure 1: 142/82 Code: 8480-6 Heart Rate 1: 84 bpm Height: SpO2: 100% Temperature: 37.1 (C) / 98.7 (F) Weight: 02/04/2014 Blood Pressure 1: 108/78 Code: 8480-6 BMI: 36.2 Code: 12077-9 Heart Rate 1: 60 bpm Height: 5'8" Weight: 238 lbs 11/05/2013 Blood Pressure 1: 134/74 Code: 8480-6 BMI: 35.9 Code: 49590-8 Heart Rate 1: 68 bpm Height: 5'8" Weight: 236 lbs 07/17/2013 Blood Pressure 1: 136/88 Code: 8480-6 BMI: 35.9 Code: 64592-5 Heart Rate 1: 72 bpm Height: 5'8" Temperature: 36.4 (C) / 97.6 (F) Weight: 236 lbs 06/07/2013 Blood Pressure 1: 134/92 Code: 8480-6 Heart Rate 1: 72 bpm Temperature: 37.0 (C) / 98.6 (F) Weight: 04/30/2013 Blood Pressure 1: 148/78 Code: 8480-6 BMI: 35.1 Code: 33791-6 Heart Rate 1: 64 bpm Height: 5'8" Weight: 231 lbs 01/29/2013 Blood Pressure 1: 128/84 Code: 8480-6 BMI: 34.4 Code: 55459-5 Heart Rate 1: 76 bpm Height: 5'8" Weight: 226 lbs 10/30/2012 Blood Pressure 1: 118/72 Code: 8480-6 BMI: 33.5 Code: 48083-3 Heart Rate 1: 64 bpm Height: 5'8" Weight: 220 lbs 07/12/2012 Blood Pressure 1: 134/88 Code: 8480-6 Heart Rate 1: 64 bpm Weight: 214 lbs 06/07/2012 Blood Pressure 1: 152/92 Code: 8480-6 Heart Rate 1: 68 bpm Respiratory Rate: 16 bpm Temperature: 36.7 (C) / 98.0 (F) Weight: 209 lbs 12/01/2011 Blood Pressure 1: 140/82 Code: 8480-6 BMI: 29.5 Code: 59404-7 Heart Rate 1: 72 bpm Height: 5'8" [...] 1: 144/90 Code: 8480-6 BMI: 29.3 Code: 47293-4 Heart Rate 1: 76 bpm Height: 5'8" [...] data Encounters Encounter Performer Location Codes Date ( 76357 EST. PATIENT, LEVEL III Diagnosis: Essential (primary) hypertension[ICD10: I10] Diagnosis: Major depressive disorder, recurrent, moderate[ICD10: F33.1] Diagnosis: Other insomnia[ICD10: G47.09] Verona Olivares MD, [facility] CPT-4: 52071 10/31/2018 10268 EST. PATIENT, LEVEL III Diagnosis: Acute laryngopharyngitis[ICD10: J06.0] Diagnosis: Other allergic rhinitis[ICD10: J30.89] Solange Olivares MD, [facility] CPT- 4: 29664 09/26/2018 ([id number]) 12091 EST. PATIENT, LEVEL III Diagnosis: Essential (primary) hypertension[ICD10: I10] Diagnosis: Major depressive disorder, recurrent, moderate[ICD10: F33.1] Diagnosis: Generalized anxiety disorder[ICD10: F41.1] Diagnosis: Encounter for immunization[ICD10: Z23] Verona Olivares MD, [facility] CPT-4: 31150 06/27/2018 ([id number]) 98573 EST. PATIENT, LEVEL IV Diagnosis: Essential (primary) hypertension[ICD10: I10] Diagnosis: Major depressive disorder, recurrent, moderate[ICD10: F33.1] Diagnosis: Generalized anxiety disorder[ICD10: F41.1] Verona Olivares MD, [facility] CPT-4: 64465 05/11/2018 ([id number]) 58620 EST. PATIENT, LEVEL III Diagnosis: Acute recurrent maxillary sinusitis[ICD10: J01.01] Diagnosis: Other hallucinations[ICD10: R44.2] Diagnosis: Allergic rhinitis due to pollen[ICD10: J30.1] Che Olivares MD, [facility] CPT-4: 22731 03/08/2017 ([id number]) 92765 EST. PATIENT, LEVEL II Diagnosis: Cellulitis of right upper limb[ICD10: L03.113] Che Olivares MD, [facility] CPT-4: 47013 09/06/2016 ([id number]) 34719 EST. PATIENT, LEVEL III Diagnosis: Cough[ICD10: R05] Diagnosis: Fever, unspecified[ICD10: R50.9] Diagnosis: Pain, unspecified[ICD10: R52] Che Olivares MD, [facility] CPT-4: 73587 07/08/2016 50043 EST. PATIENT, LEVEL IV Diagnosis: Rash and other nonspecific skin eruption[ICD10: R21] Solange Olivares MD, [facility] CPT-4: 79836 01/14/2016 ([id number]) 89848 EST. PATIENT, LEVEL III Diagnosis: Pain in left shoulder[ICD10: M25.512] Diagnosis: Pain in right shoulder[ICD10: M25.511] Diagnosis: Bicipital tendinitis, left shoulder[ICD10: M75.22] Che Olivares MD, [facility] CPT-4: 94505 11/17/2015 75702 EST. PATIENT, LEVEL IV Diagnosis: Epigastric pain[ICD10: R10.13] Diagnosis: Acute upper respiratory infection, unspecified[ICD10: J06.9] Solange Olivares MD, [facility] CPT-4: 01123 08/29/2015 ([id number]) 38984 EST. PATIENT, LEVEL III Diagnosis: Left knee pain[ICD9: 719.46] Diagnosis: ACUTE URI[ICD9: 465.9] Diagnosis: ALLERGIC RHINITIS[ICD9: 477.9] Che Olivares MD, [facility] CPT-4: 59966 01/27/2015 ([id number]) 09160 EST. PATIENT, LEVEL III Diagnosis: Elevated blood pressure (not hypertension)[ICD9: 796.2] Diagnosis: Biceps tendinitis[ICD9: 726.12] Diagnosis: Wrist pain, acute[ICD9: 719.43] Verona Olivares MD, [facility] CPT-4: 66269 08/05/2014 ([id number]) 13120 EST. PATIENT, LEVEL III Diagnosis: Acute maxillary sinusitis[ICD9: 461.0] Verona Olivares MD, [facility] CPT-4: 62463 05/02/2014 ([id number]) 10305 EST. PATIENT, LEVEL III Diagnosis: INSOMNIA IN OTHER DIS[ICD9: 327.01] Verona Olivares MD, [facility] CPT- 4: 69887 02/04/2014 ([id number]) 10328 EST. PATIENT, LEVEL III Diagnosis: ESSENTIAL HYPERTENSION[SNOMED: 26737083] Diagnosis: DEPRESSIVE DISORDER NEC[ICD9: 311] [facility] CPT- 4: 97851 11/05/2013 ([id number]) 03778 EST. PATIENT, LEVEL III Diagnosis: ACUTE BRONCHITIS[ICD9: 466.0] [facility] CPT-4: 20811 07/17/2013 ([id number]) 25979 EST. PATIENT, LEVEL III Diagnosis: ACUTE URI[ICD9: 465.9] Diagnosis: COUGH[ICD9: 786.2] Diagnosis: ALLERGIC RHINITIS[ICD9: 477.9] [facility] CPT-4: 53856 06/07/2013 ([id number]) 12163 EST. PATIENT, LEVEL III Diagnosis: ESSENTIAL HYPERTENSION[SNOMED: 36690778] Diagnosis: DEPRESSIVE DISORDER NEC[ICD9: 311] [facility] CPT- 4: 20440 04/30/2013 ([id number]) 83185 EST. PATIENT, LEVEL III Diagnosis: ESSENTIAL HYPERTENSION[SNOMED: 17185021] Diagnosis: DEPRESSIVE DISORDER NEC[ICD9: 311] [facility] CPT- 4: 27362 01/29/2013 ([id number]) 00187 EST. PATIENT, LEVEL IV Diagnosis: ESSENTIAL HYPERTENSION[SNOMED: 85595394] Diagnosis: DEPRESSIVE DISORDER NEC[ICD9: 311] Diagnosis: OBESITY[ICD9: 278.00] [facility] CPT-4: 82198 10/30/2012 ([id number]) 43612 EST. PATIENT, LEVEL III Diagnosis: ESSENTIAL HYPERTENSION[SNOMED: 88931751] Diagnosis: HYPERLIPIDEMIA[ICD9: 272.4] Diagnosis: DEPRESSIVE DISORDER NEC[ICD9: 311] [facility] CPT- 4: 08028 07/12/2012 ([id number]) 00036 EST. PATIENT, LEVEL IV Diagnosis: ESSENTIAL HYPERTENSION[SNOMED: 07093571] Diagnosis: DEPRESSIVE DISORDER NEC[ICD9: 311] Diagnosis: Palpitations[ICD9: 785.1] Diagnosis: Acute maxillary sinusitis[ICD9: 461.0] Verona Olivares MD, [facility] CPT-4: 08884 06/07/2012 65151 EST. PATIENT, LEVEL IV Diagnosis: ESSENTIAL HYPERTENSION[SNOMED: 55090587] Diagnosis: COUGH[ICD9: 786.2] Diagnosis: Upper respiratory infection[ICD9: 465.9] Verona Olivares MD, [facility] CPT-4: 21604 12/01/2011 ([id number]) 21523 EST. PATIENT, LEVEL III Diagnosis: ESSENTIAL HYPERTENSION[SNOMED: 34261859] ABDIAS Monroe MD CPT-4: 39067 11/18/2011 ([id number]) 99092 EST. PATIENT, LEVEL III Diagnosis: ESSENTIAL HYPERTENSION[SNOMED: 91812277] ABDIAS Monroe MD CPT-4: 63168 11/09/2011 ([id number]) OFFICE VISIT, NEW - LEVEL 4 Diagnosis: Restless leg syndrome[ICD9: 333.94] Diagnosis: INSOMNIA IN OTHER DIS[ICD9: 327.01] Diagnosis: Elevated blood pressure (not hypertension)[ICD9: 796.2] Verona Olivares MD, [facility] CPT-4: 37541 10/27/2011 Plan of Care Planned Activity Notes [...] exposure. No change in current medications. 10/31/2018 Patient Education: Patient Medication Summary Completed [...] spray. 09/26/2018 [facility]ment[facility] [phone] [phone] [facility] Appointment Requests 09/26/2018 Appointment: Solange Snyder WPtel: [facility] (15 min) Moderate 09/26/2018 Patient Education: [...] nightly 06/27/2018 Appointment: Verona Olivares WPtel: [phone] [facility] [place] (15 min) Moderate 06/27/2018 Patient Education: Patient Medication Summary Completed 06/27/2018 Patient Education: Depression Completed 06/27/2018 Appointment: Verona Olivares WPtel: [phone] [facility] (15 min) Moderate 06/07/2018 Visit Plan: Hypertension [...] daily. 05/11/2018 Appointment: Verona Olivares WPtel: [phone] [facility] (15 min) Moderate 05/11/2018 Patient Education: Patient [...] not resolve 03/08/2017 Appointment: Che Garcia WPtel: [phone] [phone] [place] (15 min) Moderate 03/08/2017 Patient Education: [...] Che Garcia WPtel: [facility]7 [phone] (15 min) Moderate 09/06/2016 Patient Education: Patient Medication Summary Completed 09/06/2016 Appointment: Injection 07/30/2016 Patient Education: Patient Medication Summary Completed 07/30/2016 Visit Plan: Ltttq-[id number]-[id number] aches-patient sent for stat labs and influenza swab-will treat as indicated-instructed patient we will call her with the results of her testings-tylenol/motrin as needed for fever, increase po fluids. Patient verbalized understanding of plan. 07/08/2016 Appointment: Che Garcia WPtel: [facility]8 [phone] (15 min) Moderate 07/08/2016 Patient Education: Patient [...] completely resolve. 01/27/2015 Appointment: Che Garcia WPtel: [address] [place], [place] [address] 01/27/2015 Patient Education: Patient Medication Summary Completed [...] blood pressures. 08/05/2014 Appointment: Verona Olivares WPtel: [address] [place], [place] [address] Follow up 08/05/2014 Patient Education: Patient Medication [...] [facility]ona [facility]ares [facility]el[facility] Follow [facility] 02/04/2014 Patient Education: Patient Medication [...] Verona Olivares WPtel: [facility]5 [facility] Follow up 11/05/2013 Patient Education: Patient Medication Summary Completed 11/05/2013 Patient Education: Hypertension Completed 11/05/2013 Appointment: Verona Olivares WPtel: [facility]5 [facility] Follow up 10/18/2013 Appointment: Verona Olivares WPtel: [address] [place], [place] [phone] [place] Follow up 08/07/2013 Visit Plan: Bronchitis - acute case of bronchitis identified. Pt has been given antibiotics, breathing treatments as appropriate, and pt has been instructed to call if symptoms are not improved, or if symptoms acutely worsen. RX sent to patient's pharmacy. 07/17/2013 Appointment: Che Garcia WPtel: [phone] S[facility] 07/17/2013 Patient Education: Patient Medication Summary [...] spray. 06/07/2013 Appointment: [facility]el[phone] [id number] [place] [address] 06/07/2013 Patient Education: Patient Medication Summary Completed [...] current medications. 04/30/2013 Appointment: [place] [phone] [facility] 04/30/2013 Patient Education: Patient Medication [...] medications. 01/29/2013 Appointment: Verona Olivares WPtel: [phone] [facility] [place] Follow up 01/29/2013 Patient Education: Patient Medication [...] options. 10/30/2012 Appointment: [place] Olivares [phone] [facility] 10/30/2012 Patient Education: Patient Medication [...] current medications. 07/12/2012 Appointment: Verona Olivares WPtel: [phone] [facility] [id number] [place] 07/12/2012 Patient Education: Patient Medication [...] above medications. 06/07/2012 Appointment: Verona Olivares WPtel: [address] [place], [place] [id number] Other 06/07/2012 Patient Education: Patient Medication Summary Completed 06/07/2012 Patient Education: High Blood Pressure: Essential Hypertension Completed 06/07/2012 Appointment: Verona Olivares WPtel: [address] [place], [place] [id number] Other 05/29/2012 Visit Plan: Hypertension - well [...] Appointment: Verona Olivares WPtel: [id number] Follow up 12/01/2011 Patient Education: Patient Medication [...] change today. 11/18/2011 Appointment: Verona Olivares WPtel: [facility] [place] [id number] Other 11/18/2011 Patient Education: Patient Medication Summary [...] acute conerns. 11/09/2011 Appointment: Verona Olivares WPtel: [id number] Surgical Procedure 11/09/2011 Patient Education: Patient Medication [...] diet. 10/27/2011 Appointment: [place]ona [facility]ares [facility] [phone] [id number] New Patient 10/27/2011 Patient Education: Patient Medication [...] situational exposure. No change in current medications. extended release melatonin you can take [...] this patient. Increase lexapro to 20mg nightly Take nexium daily. . Esophageal Reflux - [...] level, therefore, no medication change today. . URI - Pt advised to increase [...] is tapered off of the antidepressant. . Gxagb-djaio-vpti aches-patient sent for stat labs and influenza [...] if symptoms do not completely resolve. . Hyperlipidemia - pt has been counseled [...] to call if symptoms are not improved. L-TRYPTOPHAN - MAY HELP AIDE SLEEP.. Insomnia [...] sleep. . Hypertension - uncontrolled - the patient's [...] acutely worsen. RX sent to patient's pharmacy. Pt to use voltaren gel 2 grams [...] pt has reports of improved blood pressures. Topical steroid in addition to benadryl cream x 10 days. Culture area on right upper arm. RTC if itching worsens or does not improve in the next week. . Itching-excoriation of right upper arm-bacterial culture of excoriated areas today in the office-RX for triamcinolone cream provided and instructed on use-if culture positive, will add mupirocin ointment. Patient verbalized understanding of plan. . Sinusitis [...] spray in the nasal steroid allergy spray. Prednisone 40mg a day, you can split [...]
--- OUTSIDE RECORDS SUMMARY | 2019-03-02 10:51 | XMS REPORT | CCD ---
Author Author Verona Olivares Organization Verona Olivares MD, [facility] Address [address] [place] [address] Phone Care Team Providers Care Drawing Box Tender Name Role Phone Verona Olivares PP Unavailable CCM Unavailable Summary Purpose Interface Exchange Insurance Providers Payer name Policy type / Coverage type Covered green party ID Effective Begin Date Effective End Date [facility] [id number] Unknown Family history Mother Diagnosis Age At [...] Currently employed 10/27/[address]: 835072664 Never smoker 10/27/[address]: 743969755 Never drinks alcohol 10/27/2011 Has the patient ever used illegal drugs? Unknown Has never used illegal drugs 10/27/2011 Allergies, Adverse Reactions, Alerts Substance Reaction Codes Entered Date Inactivated Date Status * NO KNOWN FOOD ALLERGIES Unknown 07/12/2012 No Inactive Date Active KENZIE INHIBITORS cough Unknown 06/07/2012 No Inactive Date Active Past Medical History Illness Codes Condition Status Onset Date Resolved Date Acute laryngopharyngitis ICD-9: 465.0 ICD-10: J06.0 Active 09/26/2018 Unknown Other allergic rhinitis ICD-9: 477.8 ICD-10: J30.89 Active 09/26/2018 Unknown Encounter for immunization ICD-9: V05.9 ICD-10: Z23 Active 06/27/2018 Unknown Essential (primary) hypertension ICD-9: 401.1 ICD-10: I10 Active 05/11/2018 Unknown Generalized anxiety disorder ICD-9: 300.00 ICD-10: F41.1 Active 05/11/2018 Unknown Major depressive disorder, recurrent, moderate ICD-9: 296.32 ICD-10: F33.1 Active 05/11/2018 Unknown Acute recurrent maxillary sinusitis [...] Condition Codes Effective Dates Condition Status Acute laryngopharyngitis ICD-9: 465.0 ICD-10: J06.0 09/26/2018 Active Other allergic rhinitis ICD-9: 477.8 ICD-10: J30.89 09/26/2018 Active Encounter for immunization ICD-9: V05.9 ICD-10: Z23 06/27/2018 Active Essential (primary) hypertension ICD-9: 401.1 ICD-10: I10 05/11/2018 Active Generalized anxiety disorder ICD-9: 300.00 ICD-10: F41.1 05/11/2018 Active Major depressive disorder, recurrent, moderate ICD-9: 296.32 ICD-10: F33.1 05/11/2018 Active Acute recurrent maxillary sinusitis ICD-9: [...] Instructions Augmentin 875 mg-125 mg tablet RxNorm: 245061 1 Tablet(s) PO BID 09/26/2018 10/05/2018 Active Kenalog 40 mg/mL suspension for injection RxNorm: 0236592 Milliliter(s) Inj 09/26/2018 09/26/2018 Inactive escitalopram 20 mg tablet RxNorm: 681488 1 Tablet(s) PO QPM 06/27/2018 01/22/2019 Active lisinopril 10 mg tablet RxNorm: 231652 1 Tablet(s) PO daily 06/21/2018 11/17/2018 Active escitalopram 10 mg tablet RxNorm: 965089 1 Tablet(s) PO QPM 05/11/2018 06/26/2018 Inactive lisinopril 10 mg tablet RxNorm: 532108 1 Tablet(s) PO daily 05/11/2018 06/20/2018 Inactive alprazolam 0.5 mg tablet RxNorm: 938183 TAKE ONE-HALF TO ONE TABLET BY MOUTH EVERY 6 HOURS NEEDED 09/20/2017 10/04/2017 Inactive Augmentin 875 mg-125 mg tablet RxNorm: 804223 1 Tablet(s) PO BID 03/08/2017 03/17/2017 Inactive alprazolam 0.5 mg tablet RxNorm: 094880 Tablet(s) PO Q6 as needed TAKE ONE-HALF TO ONE TABLET BY MOUTH EVERY 6 HOURS NEEDED 12/24/2016 01/22/2017 Inactive triamcinolone acetonide 0.5 % topical cream RxNorm: 2343061 1 Application TOP BID 09/06/2016 09/15/2016 Inactive Levaquin 500 mg tablet RxNorm: 439745 1 Tablet(s) PO daily 07/08/2016 07/14/2016 Inactive please call her when ready Levaquin 500 mg tablet RxNorm: 192898 1 Tablet(s) PO daily 07/08/2016 07/07/2016 Inactive alprazolam 0.5 mg tablet RxNorm: 112642 Tablet(s) PO Q6 as needed TAKE ONE-HALF TO ONE TABLET BY MOUTH EVERY 6 HOURS NEEDED 04/26/2016 12/23/2016 Inactive Generic For:*XANAX 0.5 MG TABLET 05/16/2013 1:18:18 PM (Appended: Controlled substance eRx refill - RxReferenceNumber: [id number]) alprazolam 0.5 mg tablet RxNorm: 056580 Tablet(s) PO Q6 as needed TAKE ONE-HALF TO ONE TABLET BY MOUTH EVERY 6 HOURS NEEDED 04/26/2016 09/19/2017 Inactive Generic For:*XANAX 0.5 MG TABLET 05/16/2013 1:18:18 PM (Appended: Controlled substance eRx refill - RxReferenceNumber: [id number]) betamethasone dipropionate 0.05 % topical cream RxNorm: 578968 1 TOP UD 1-2 x per day PRN 01/16/2016 No Stop Date Active Kenalog 40 mg/mL suspension for injection RxNorm: 3458558 Milliliter(s) Inj 01/14/2016 01/14/2016 Inactive prednisone 20 mg tablet RxNorm: 511502 2 Tablet(s) PO daily 01/14/2016 01/18/2016 Inactive alprazolam 0.5 mg tablet RxNorm: 810005 Tablet(s) PO Q6 as needed TAKE ONE-HALF TO ONE TABLET BY MOUTH EVERY 6 HOURS NEEDED 09/26/2015 04/25/2016 Inactive Generic For:*XANAX 0.5 MG TABLET 05/16/2013 1:18:18 PM (Appended: Controlled substance eRx refill - RxReferenceNumber: [id number]) azithromycin 250 mg tablet RxNorm: 340456 1 Tablet(s) PO UD 2 pills day one and 1 pill day 2-5 08/29/2015 09/02/2015 Inactive Keflex 500 mg capsule RxNorm: 858771 1 Capsule(s) PO TID 02/03/2015 02/09/2015 Inactive take a probiotic while on the abt Keflex 500 mg capsule RxNorm: 909704 1 Capsule(s) PO TID 02/03/2015 02/02/2015 Inactive take a probiotic while on the [facility] hydrocodone 5 mg-acetaminophen 325 mg tablet RxNorm: 520865 1 Tablet(s) PO Q6 PRN 01/27/2015 08/16/2015 Inactive Kenalog 40 mg/mL suspension for injection RxNorm: 7139054 2 Milliliter(s) Inj 05/02/2014 05/02/2014 Inactive Zithromax Z-Tomás 250 mg tablet RxNorm: 606056 1 Tablet(s) PO QPM 05/02/2014 05/06/2014 Inactive Rocephin 500 mg solution for injection RxNorm: 180430 1 Milliliter(s) Inj 05/02/2014 05/02/2014 Inactive metoprolol tartrate 25 mg tablet RxNorm: 300055 1/2 Tablet(s) PO BID TAKE ONE-HALF TABLET BY MOUTH TWICE DAILY 11/05/2013 02/03/2014 Inactive vilazodone 40 mg tablet RxNorm: 6011661 1 Tablet(s) PO daily 08/09/2013 02/03/2014 Inactive Zithromax Z-Tomás 250 mg tablet RxNorm: 311058 Tablet(s) PO 07/17/2013 11/04/2013 Inactive Rocephin 500 mg Solution for Injection RxNorm: 926434 Inj 07/17/2013 07/17/2013 Inactive Kenalog 40 mg/mL Susp for Injection RxNorm: 8738434 1 Milliliter(s) Inj 06/07/2013 06/07/2013 Inactive alprazolam 0.5 mg tablet RxNorm: 158467 1/2-1 Tablet(s) PO Q6 PRN 05/17/2013 No Stop Date Active alprazolam 0.5 mg tablet RxNorm: 685091 Tablet(s) PO TAKE ONE-HALF TO ONE TABLET BY MOUTH EVERY 6 HOURS NEEDED 05/17/2013 09/25/2015 Inactive Generic For:*XANAX 0.5 MG TABLET 05/16/2013 1:18:18 PM (Appended: Controlled substance eRx refill - RxReferenceNumber: [id number]) metoprolol tartrate 25 mg tablet RxNorm: 509519 Tablet(s) PO TAKE ONE-HALF TABLET BY MOUTH TWICE DAILY 02/12/2013 11/04/2013 Inactive metoprolol tartrate 25 mg tablet RxNorm: 863462 1/2 Tablet(s) PO BID 01/29/2013 05/28/2013 Inactive alprazolam 0.5 mg tablet RxNorm: 941140 1/2-1 Tablet(s) PO Q6 PRN 11/28/2012 05/17/2013 Inactive lisinopril 10 mg tablet RxNorm: 319740 1 Tablet(s) PO daily 10/30/2012 01/28/2013 Inactive vilazodone 40 mg tablet RxNorm: 2755521 1 Tablet(s) PO daily 08/08/2012 02/03/2013 Inactive metoprolol tartrate 25 mg tablet RxNorm: 916656 1/2 Tablet(s) PO BID 06/07/2012 10/04/2012 Inactive amoxicillin-potassium clavulanate 500 mg-125 mg tablet RxNorm: 839415 1 Tablet(s) PO TID 06/07/2012 06/13/2012 Inactive Ambien 5 mg tablet RxNorm: 712228 1 Tablet(s) PO HS PRN 05/02/2012 05/31/2012 Inactive lisinopril 10 mg tablet RxNorm: 969957 1 Tablet(s) PO daily 11/09/2011 06/05/2012 Inactive pramipexole 0.5 mg Tab RxNorm: 628937 1/2 Tablet(s) PO QHS 11/01/2011 01/29/2012 Inactive pramipexole 0.5 mg Tab RxNorm: 698369 1 Tablet(s) PO QHS 10/27/2011 10/31/2011 Inactive Fish Oil 1,200 mg-144 mg-216 mg Cap RxNorm: 1 Capsule(s) PO daily No Start Date Active potassium 99 mg Tab RxNorm: 1 Tablet(s) PO daily No Start Date 10/29/2012 Inactive betamethasone dipropionate 0.05 % topical cream RxNorm: 870032 1 TOP UD 1-2 x per day PRN No Start Date 01/15/2016 Inactive alprazolam 0.5 mg tablet RxNorm: 932001 1/2-1 Tablet(s) PO Q6 PRN No Start Date 11/27/2012 Inactive Ambien 5 mg tablet RxNorm: 501556 1 Tablet(s) PO HS PRN No Start Date 05/01/2012 Inactive calcium & magnesium carbonates 311 mg-232 mg Tab RxNorm: 834245 1 Tablet(s) PO BID No Start Date 10/29/2012 Inactive multivitamin Tab RxNorm: 1 Tablet(s) PO daily No Start Date 10/29/2012 Inactive vilazodone 40 mg tablet RxNorm: 7388457 1 Tablet(s) PO daily No Start Date 08/07/2012 Inactive Zithromax Z-Tomás 250 mg tablet RxNorm: 303669 Tablet(s) PO No Start Date 07/16/2013 Inactive Medication Administered Medication Codes Instructions Start Date Status Kenalog 40 mg/mL suspension for injection RxNorm: 5113456 Milliliter 09/26/2018 No longer Active Kenalog 40 mg/mL suspension for injection RxNorm: 8416821 Milliliter 01/14/2016 No longer Active Rocephin 500 mg solution for injection RxNorm: 076251 1Milliliter 05/02/2014 No longer Active Kenalog 40 mg/mL suspension for injection RxNorm: 4641479 2Milliliter 05/02/2014 No longer Active Rocephin 500 mg Solution for Injection RxNorm: 358241 07/17/2013 No longer Active Kenalog 40 mg/mL Susp for Injection RxNorm: 6857749 1Milliliter 06/07/2013 No longer Active Immunizations Vaccine Codes Date Status Influenza CVX: 141 06/27/2018 completed Influenza CVX: 141 07/30/2016 completed Influenza CVX: 141 07/23/2015 completed Influenza CVX: 141 07/26/2013 completed Assessments Condition Codes Effective Dates Other allergic rhinitis ICD-10: J30.89 ICD-9: 477.8 09/26/2018 Acute laryngopharyngitis ICD-10: J06.0 ICD-9: 465.0 09/26/2018 Generalized anxiety disorder ICD-10: F41.1 ICD-9: 300.00 06/27/2018 Essential (primary) hypertension ICD-10: I10 ICD-9: 401.1 06/27/2018 Encounter for immunization ICD-10: Z23 ICD-9: V05.9 06/27/2018 Major depressive disorder, recurrent, moderate ICD-10: F33.1 ICD-9: 296.32 06/27/2018 Other hallucinations ICD-10: R44.2 ICD-9: 780.1 [...] NEC ICD-9: 311 11/05/2013 ESSENTIAL HYPERTENSION SNOMED: 07919423 ICD-9: 401.9 11/05/2013 ACUTE BRONCHITIS ICD-9: 466.0 07/17/2013 COUGH ICD-9: 786.2 06/07/2013 OBESITY ICD-9: 278.00 10/30/2012 HYPERLIPIDEMIA ICD-9: 272.4 07/12/2012 Palpitations ICD-9: 785.1 06/07/2012 Changing mole ICD-9: 216.9 11/09/2011 Restless leg syndrome ICD-9: 333.94 10/27/2011 Reason For Visit Reason For Visit Effective Dates Notes sinus congestion 09/26/2018 hypertension 06/27/2018 hypertension 05/11/2018 [...] Item Item Code Result Date Influenza A+B Odr017 Influ A+B Negative 07/08/2016 Cbc With Differential [...] 29.7 pg 07/08/2016 Cbc With Differential Ord2 [place]% 6.8 % 07/08/2016 Cbc With Differential Ord2 [...] 1.19 K/ul 07/08/2016 Cbc With Differential Ord2 [place] ABS# 1.1 K/ul 07/08/2016 Cbc With Differential Ord2 Eos ABS# 0.0 K/ul 07/08/2016 Cbc With Differential Ord2 Baso ABS# 0.0 K/ul 07/08/2016 Comp Metabolic Qko214 NA 134 mEq/L 07/08/2016 Comp Metabolic Kwf318 K 3.9 mEq/L 07/08/2016 Comp Metabolic Gwk678 CL 101 mEq/L 07/08/2016 Comp Metabolic Ixv686 CO2 27.0 mEq/L 07/08/2016 Comp Metabolic Xco028 ANION GAP 10 07/08/2016 Comp Metabolic Nih720 GLUCOSE 120 mg/dL 07/08/2016 Comp Metabolic Lhq608 Creat 0.9 mg/dL 07/08/2016 Comp Metabolic Dqs773 eGFR 71 ml/min/1.73m2 07/08/2016 Comp Metabolic Ccl631 BUN 16 mg/dL 07/08/2016 Comp Metabolic Icq401 B/C Ratio 18.4 Ratio 07/08/2016 Comp Metabolic Jyb936 CALCIUM 10.0 mg/dL 07/08/2016 Comp Metabolic Njt862 ALK PHOS 57 U/L 07/08/2016 Comp Metabolic Npn438 AST(SGOT) 21 U/L 07/08/2016 Comp Metabolic Ury206 ALT(SGPT) 20 U/L 07/08/2016 Comp Metabolic Azy591 BILI T 1.1 mg/dL 07/08/2016 Comp Metabolic Tjz056 ALBUMIN 3.9 g/dL 07/08/2016 Comp Metabolic Gmx327 TPRO 6.2 g/dL 07/08/2016 Comp Metabolic Dtr050 GLOB 2.4 g/dL 07/08/2016 Comp Metabolic Pqc182 A/G Ratio 1.6 Ratio 07/08/2016 Comp Metabolic Opy241 Osmo 271 mOsmo 07/08/2016 Comp Metabolic Pnh675 NA 130 mEq/L 08/29/2015 Comp Metabolic Suq514 K 4.0 mEq/L 08/29/2015 Comp Metabolic Ftv578 CL 99 mEq/L 08/29/2015 Comp Metabolic Ngv040 CO2 21.0 mEq/L 08/29/2015 Comp Metabolic Rli119 ANION GAP 14 08/29/2015 Comp Metabolic Ocl965 GLUCOSE 105 mg/dL 08/29/2015 Comp Metabolic Twt648 Creat 1.0 mg/dL 08/29/2015 Comp Metabolic Vni891 eGFR 62 ml/min/1.73m2 08/29/2015 Comp Metabolic Tee543 BUN 8 mg/dL 08/29/2015 Comp Metabolic Wwq534 B/C Ratio 8.2 Ratio 08/29/2015 Comp Metabolic Poo090 CALCIUM 9.9 mg/dL 08/29/2015 Comp Metabolic Fzm928 ALK PHOS 93 U/L 08/29/2015 Comp Metabolic Wrw474 AST(SGOT) 16 U/L 08/29/2015 Comp Metabolic Eov222 ALT(SGPT) 22 U/L 08/29/2015 Comp Metabolic Bdy342 BILI T 0.6 mg/dL 08/29/2015 Comp Metabolic Cgk503 ALBUMIN 4.3 g/dL 08/29/2015 Comp Metabolic Hxu687 TPRO 6.7 g/dL 08/29/2015 Comp Metabolic Acu408 GLOB 2.4 g/dL 08/29/2015 Comp Metabolic Int186 A/G Ratio 1.8 Ratio 08/29/2015 Comp Metabolic Kwo415 Osmo 259 mOsmo 08/29/2015 Cbc With Differential [...] System Result Effective Dates Constitutional recent illness 09/26/2018 Constitutional No chills [...] masses 07/17/2013 None Full Exam - General 1994 [...] intact 04/30/2013 None Full Exam - General 1995 Psychiatric [...] distress 01/29/2013 None Full Exam - General 1995 Constitutional general appearance Overall: well nourished 01/29/2013 [...] atraumatic 07/12/2012 None Full Exam - General 1995 Musculoskeletal [...] General 1995 Ears/Nose/Throat otoscopic exam Tympanic membrane: air-fluid level [...] CPT-4: J3301 09/26/2018 THER/PROPH/DIAG INJ SC/IM CPT-4: 17283 09/26/2018 IMMUNIZATION ADMIN CPT- 4: 31687 06/27/2018 FLU VAC NO PRSV 4 RAHUL 3 YRS+ Formatting Model/CDA Sections, Assigned to/Zonia Martinez CPT-4: 20529Uwytbcb 06/27/2018 IMMUNIZATION ADMIN CPT- 4: 95398 07/30/2016 IIV4 FLU VACC NO PRESERV ID SNOMED CT: 56835914 CPT-4: 48323 07/30/2016 TRIAMCINOLONE ACET INJ NOS CPT-4: J3301 01/14/2016 IMMUNIZATION ADMIN CPT- 4: 27336 07/23/2015 IMMUNIZATION ADMIN EACH ADD CPT-4: 09163 07/23/2015 FLU VACC 4 RAHUL 3 YRS PLUS IM Formatting Model/CDA Sections, Assigned to SNOMED CT: 32769938 CPT-4: 58893Achidxv 07/23/2015 THER/PROPH/DIAG INJ SC/IM CPT-4: 50504 05/02/2014 ROCEPHIN, PER 250 MG CPT- 4: J0696 05/02/2014 TRIAMCINOLONE ACET INJ NOS CPT-4: J3301 05/02/2014 ROCEPHIN, PER 250 MG CPT- 4: J0696 07/17/2013 TRIAMCINOLONE ACET INJ NOS CPT-4: J3301 06/07/2013 BIOPSY SKIN LESION CPT- 4: 82017 11/09/2011 Vital Signs Date Vital 09/26/2018 Blood Pressure 1: 130/78 Code: 8480-6 BMI: 32.4 Code: 24695-1 Heart Rate 1: 67 bpm Height: 5'8" SpO2: 97% Temperature: 36.5 (C) / 97.7 (F) Weight: 213 lbs 06/27/2018 Blood Pressure 1: 132/78 Code: 8480-6 BMI: 33.9 Code: 13617-7 Heart Rate 1: 66 bpm Height: 5'8" SpO2: 95% Weight: 223 lbs 05/11/2018 Blood Pressure 1: 140/90 Code: 8480-6 BMI: 33.8 Code: 36261-3 Heart Rate 1: 74 bpm Height: 5'8" SpO2: 98% Weight: 222 lbs 03/08/2017 Blood Pressure 1: 144/86 Code: 8480-6 BMI: 31.2 Code: 15265-8 Heart Rate 1: 70 bpm Height: 5'8" SpO2: 98% Weight: 205 lbs 09/06/2016 Blood Pressure 1: 128/86 Code: 8480-6 BMI: 28.4 Code: 17121-7 Heart Rate 1: 86 bpm Height: 5'8" SpO2: 96% Weight: 187 lbs 07/08/2016 Blood Pressure 1: 120/60 Code: 8480-6 BMI: 28.4 Code: 07296-8 Height: 5'8" Temperature: 37.8 (C) / 100.1 (F) Weight: 187 lbs 01/14/2016 Blood Pressure 1: 152/86 Code: 8480-6 BMI: 30.4 Code: 36856-0 Heart Rate 1: 83 bpm Height: 5'8" SpO2: 97% Weight: 200 lbs 11/17/2015 Blood Pressure 1: 142/90 Code: 8480-6 BMI: 33.9 Code: 87742-6 Heart Rate 1: 75 bpm Height: 5'8" SpO2: 97% Weight: 223 lbs 08/29/2015 BMI: 35.6 Code: 14381-2 Heart Rate 1: 94 bpm Height: 5'8" SpO2: 98% Weight: 234 lbs 01/27/2015 Blood Pressure 1: 140/94 Code: 8480-6 Heart Rate 1: 88 bpm Height: 5'8" SpO2: 98% Weight: 08/05/2014 Blood Pressure 1: 138/82 Code: 8480-6 BMI: 33.6 Code: 44289-2 Heart Rate 1: 76 bpm Height: 5'8" Weight: 221 lbs 05/02/2014 Blood Pressure 1: 142/82 Code: 8480-6 Heart Rate 1: 84 bpm Height: SpO2: 100% Temperature: 37.1 (C) / 98.7 (F) Weight: 02/04/2014 Blood Pressure 1: 108/78 Code: 8480-6 BMI: 36.2 Code: 58216-9 Heart Rate 1: 60 bpm Height: 5'8" Weight: 238 lbs 11/05/2013 Blood Pressure 1: 134/74 Code: 8480-6 BMI: 35.9 Code: 65787-3 Heart Rate 1: 68 bpm Height: 5'8" Weight: 236 lbs 07/17/2013 Blood Pressure 1: 136/88 Code: 8480-6 BMI: 35.9 Code: 38914-7 Heart Rate 1: 72 bpm Height: 5'8" Temperature: 36.4 (C) / 97.6 (F) Weight: 236 lbs 06/07/2013 Blood Pressure 1: 134/92 Code: 8480-6 Heart Rate 1: 72 bpm Temperature: 37.0 (C) / 98.6 (F) Weight: 04/30/2013 Blood Pressure 1: 148/78 Code: 8480-6 BMI: 35.1 Code: 45414-2 Heart Rate 1: 64 bpm Height: 5'8" Weight: 231 lbs 01/29/2013 Blood Pressure 1: 128/84 Code: 8480-6 BMI: 34.4 Code: 35238-2 Heart Rate 1: 76 bpm Height: 5'8" Weight: 226 lbs 10/30/2012 Blood Pressure 1: 118/72 Code: 8480-6 BMI: 33.5 Code: 59723-9 Heart Rate 1: 64 bpm Height: 5'8" Weight: 220 lbs 07/12/2012 Blood Pressure 1: 134/88 Code: 8480-6 Heart Rate 1: 64 bpm Weight: 214 lbs 06/07/2012 Blood Pressure 1: 152/92 Code: 8480-6 Heart Rate 1: 68 bpm Respiratory Rate: 16 bpm Temperature: 36.7 (C) / 98.0 (F) Weight: 209 lbs 12/01/2011 Blood Pressure 1: 140/82 Code: 8480-6 BMI: 29.5 Code: 23041-0 Heart Rate 1: 72 bpm Height: 5'8" [...] 1: 144/90 Code: 8480-6 BMI: 29.3 Code: 70011-6 Heart Rate 1: 76 bpm Height: 5'8" Respiratory Rate: 16 bpm Weight: 193 lbs Functional Status No Functional Status data History of Present Illness Symptom Name Status Result Effective Date Notes Location frontal sinuses 09/26/2018 None Quality fullness [...] data Encounters Encounter Performer Location Codes Date EST. PATIENT, LEVEL III Diagnosis: Acute laryngopharyngitis[ICD10: J06.0] Diagnosis: Other allergic rhinitis[ICD10: J30.89] Solange Olivares MD, [facility] CPT- 4: 51832 09/26/2018 ([id number]) 85791 EST. PATIENT, LEVEL III Diagnosis: Essential (primary) hypertension[ICD10: I10] Diagnosis: Major depressive disorder, recurrent, moderate[ICD10: F33.1] Diagnosis: Generalized anxiety disorder[ICD10: F41.1] Diagnosis: Encounter for immunization[ICD10: Z23] Verona Olivares MD, [facility] CPT-4: 18653 06/27/2018 ([id number]) 63754 EST. PATIENT, LEVEL IV Diagnosis: Essential (primary) hypertension[ICD10: I10] Diagnosis: Major depressive disorder, recurrent, moderate[ICD10: F33.1] Diagnosis: Generalized anxiety disorder[ICD10: F41.1] Verona Olivares MD, [facility] CPT-4: 58394 05/11/2018 ([id number]) 87714 EST. PATIENT, LEVEL III Diagnosis: Acute recurrent maxillary sinusitis[ICD10: J01.01] Diagnosis: Other hallucinations[ICD10: R44.2] Diagnosis: Allergic rhinitis due to pollen[ICD10: J30.1] Che Olivares MD, [facility] CPT-4: 10545 03/08/2017 ([id number]) 76456 EST. PATIENT, LEVEL II Diagnosis: Cellulitis of right upper limb[ICD10: L03.113] Che Olivares MD, [facility] CPT-4: 47375 09/06/2016 ([id number]) 38661 EST. PATIENT, LEVEL III Diagnosis: Cough[ICD10: R05] Diagnosis: Fever, unspecified[ICD10: R50.9] Diagnosis: Pain, unspecified[ICD10: R52] Che Olivares MD, [facility] CPT-4: 78989 07/08/2016 [id number] EST. PATIENT, LEVEL IV Diagnosis: Rash and other nonspecific skin eruption[ICD10: R21] Solange Olivares MD, [facility] CPT-4: 91561 01/14/2016 ([id number]) 53667 EST. PATIENT, LEVEL III Diagnosis: Pain in left shoulder[ICD10: M25.512] Diagnosis: Pain in right shoulder[ICD10: M25.511] Diagnosis: Bicipital tendinitis, left shoulder[ICD10: M75.22] Che Olivares MD, [facility] CPT-4: 97945 11/17/2015 [id number] EST. PATIENT, LEVEL IV Diagnosis: Epigastric pain[ICD10: R10.13] Diagnosis: Acute upper respiratory infection, unspecified[ICD10: J06.9] Solange Olivares MD, [facility] CPT-4: 29025 08/29/2015 ([id number]) 66497 EST. PATIENT, LEVEL III Diagnosis: Left knee pain[ICD9: 719.46] Diagnosis: ACUTE URI[ICD9: 465.9] Diagnosis: ALLERGIC RHINITIS[ICD9: 477.9] Che Olivares MD, [facility] CPT-4: 64532 01/27/2015 ([id number]) 74976 EST. PATIENT, LEVEL III Diagnosis: Elevated blood pressure (not hypertension)[ICD9: 796.2] Diagnosis: Biceps tendinitis[ICD9: 726.12] Diagnosis: Wrist pain, acute[ICD9: 719.43] Verona Olivares MD, [facility] CPT-4: 05890 08/05/2014 ([id number]) 75317 EST. PATIENT, LEVEL III Diagnosis: Acute maxillary sinusitis[ICD9: 461.0] Verona Olivares MD, [facility] CPT-4: 08970 05/02/2014 ([id number]) 50111 EST. PATIENT, LEVEL III Diagnosis: INSOMNIA IN OTHER DIS[ICD9: 327.01] Verona Olivares MD, [facility] CPT- 4: 31594 02/04/2014 ([id number]) 09818 EST. PATIENT, LEVEL III Diagnosis: ESSENTIAL HYPERTENSION[SNOMED: 72413467] Diagnosis: DEPRESSIVE DISORDER NEC[ICD9: 311] Verona Olivares MD [facility] CPT- 4: 49291 11/05/2013 ([id number]) 63554 EST. PATIENT, LEVEL III Diagnosis: ACUTE BRONCHITIS[ICD9: 466.0] [facility] CPT-4: 53204 07/17/2013 ([id number]) 12701 EST. PATIENT, LEVEL III Diagnosis: ACUTE URI[ICD9: 465.9] Diagnosis: COUGH[ICD9: 786.2] Diagnosis: ALLERGIC RHINITIS[ICD9: 477.9] [facility] CPT-4: 33592 06/07/2013 ([id number]) 19560 EST. PATIENT, LEVEL III Diagnosis: ESSENTIAL HYPERTENSION[SNOMED: 91899725] Diagnosis: DEPRESSIVE DISORDER NEC[ICD9: 311] Verona Olivares MD [facility] CPT- 4: 58439 04/30/2013 ([id number]) 67515 EST. PATIENT, LEVEL III Diagnosis: ESSENTIAL HYPERTENSION[SNOMED: 21689701] Diagnosis: DEPRESSIVE DISORDER NEC[ICD9: 311] Verona Olivares MD [facility] CPT- 4: 31758 01/29/2013 ([id number]) 08081 EST. PATIENT, LEVEL IV Diagnosis: ESSENTIAL HYPERTENSION[SNOMED: 28682081] Diagnosis: DEPRESSIVE DISORDER NEC[ICD9: 311] Diagnosis: OBESITY[ICD9: 278.00] [facility] CPT-4: 03609 10/30/2012 ([id number]) 95050 EST. PATIENT, LEVEL III Diagnosis: ESSENTIAL HYPERTENSION[SNOMED: 64426997] Diagnosis: HYPERLIPIDEMIA[ICD9: 272.4] Diagnosis: DEPRESSIVE DISORDER NEC[ICD9: 311] [facility] CPT- 4: 71353 07/12/2012 ([id number]) 34630 EST. PATIENT, LEVEL IV Diagnosis: ESSENTIAL HYPERTENSION[SNOMED: 24384797] Diagnosis: DEPRESSIVE DISORDER NEC[ICD9: 311] Diagnosis: Palpitations[ICD9: 785.1] Diagnosis: Acute maxillary sinusitis[ICD9: 461.0] Verona Olivares MD, [facility] CPT-4: 36249 06/07/2012 [id number] EST. PATIENT, LEVEL IV Diagnosis: ESSENTIAL HYPERTENSION[SNOMED: 67764478] Diagnosis: COUGH[ICD9: 786.2] Diagnosis: Upper respiratory infection[ICD9: 465.9] ABDIAS Monroe MD CPT-4: 74464 12/01/2011 ([id number]) 11801 EST. PATIENT, LEVEL III Diagnosis: ESSENTIAL HYPERTENSION[SNOMED: 36984447] ABDIAS Monroe MD CPT-4: 73812 11/18/2011 ([id number]) 35244 EST. PATIENT, LEVEL III Diagnosis: ESSENTIAL HYPERTENSION[SNOMED: 12799460] ABDIAS Monroe MD CPT-4: 43927 11/09/2011 ([id number]) OFFICE VISIT, NEW - LEVEL 4 Diagnosis: Restless leg syndrome[ICD9: 333.94] Diagnosis: INSOMNIA IN OTHER DIS[ICD9: 327.01] Diagnosis: Elevated blood pressure (not hypertension)[ICD9: 796.2] Verona Olivares MD, [facility] CPT-4: 39073 10/27/2011 Plan of Care Planned Activity Notes Codes Status Date Visit Plan: URI - Pt advised to [...] allergy spray. 09/26/2018 Appointment: [phone] [place] Portal Appointment Requests 09/26/2018 Appointment: Solange Snyder WPtel: [facility] [place] (15 min) Moderate 09/26/2018 Patient Education: Patient [...] 20mg nightly 06/27/2018 Appointment: Verona Olivares WPtel: [facility] (15 min) Moderate 06/27/2018 Patient Education: Patient Medication Summary Completed 06/27/2018 Patient Education: Depression Completed 06/27/2018 Appointment: Verona Olivares WPtel[facility] (15 min) Moderate 06/07/2018 Visit Plan: Hypertension [...] daily. 05/11/2018 Appointment: [place] Olivares [facility]Ptel[facility] [phone] [facility] (15 min) Moderate 05/11/2018 Patient Education: [...] not resolve 03/08/2017 Appointment: Che Garcia WPtel: [facility]8 [phone] (15 min) Moderate 03/08/2017 Patient Education: Patient [...] of plan. 09/06/2016 Appointment: Che Garcia WPtel: [facility]4 [phone] (15 min) Moderate 09/06/2016 Patient Education: Patient Medication Summary Completed 09/06/2016 Appointment: Injection 07/30/2016 Patient Education: Patient Medication Summary Completed 07/30/2016 Visit Plan: Iezni-kplif-anku aches-patient sent for stat labs and influenza swab-will treat as indicated-instructed patient we will call her with the results of her testings-tylenol/motrin as needed for fever, increase po fluids. Patient verbalized understanding of plan. 07/08/2016 Appointment: Che Garcia WPtel[phone] (15 min) Moderate 07/08/2016 Patient Education: Patient [...] do not completely resolve. 01/27/2015 Appointment: [facility] Garcia[facility] [phone] [phone] Sick 01/27/2015 Patient Education: Patient Medication Summary [...] blood pressures. 08/05/2014 Appointment: Verona Olivares WPtel: [facility]5 [facility] Follow up 08/05/2014 Patient Education: Patient Medication [...] for sleep. 02/04/2014 Appointment: Verona Olivares WPtel: [facility] Follow up 02/04/2014 Patient Education: Patient Medication [...] the antidepressant. 11/05/2013 Appointment: Verona Olivares WPtel: [facility]5 [facility] Follow up 11/05/2013 Patient Education: Patient Medication Summary Completed 11/05/2013 Patient Education: Hypertension Completed 11/05/2013 Appointment: Verona Olivares WPtel: [address] [place], [place] [phone] Follow up 10/18/2013 Appointment: Verona Olivares WPtel: [address] [place], [place] [phone] Follow up 08/07/2013 Visit Plan: Bronchitis - acute case of bronchitis identified. Pt has been given antibiotics, breathing treatments as appropriate, and pt has been instructed to call if symptoms are not improved, or if symptoms acutely worsen. RX sent to patient's pharmacy. 07/17/2013 Appointment: Che Garcia WPtel: [address] [place], [place] [phone] [place] [address] Sick 07/17/2013 Patient Education: Patient Medication Summary [...] allergy spray. 06/07/2013 Appointment: Che Garcia WPtel: [address] [place], [place] [phone] Sick 06/07/2013 Patient Education: Patient Medication Summary [...] current medications. 04/30/2013 Appointment: Verona Olivares WPtel: [facility]5 [facility] Follow up 04/30/2013 Patient Education: Patient Medication [...] current medications. 01/29/2013 Appointment: Verona Olivares WPtel: [address] [place], [place] [phone] Follow up 01/29/2013 Patient Education: Patient Medication [...] exercise options. 10/30/2012 Appointment: Verona Olivares WPtel: [facility] Follow [facility] 10/30/2012 Patient Education: Patient [...] medications. 07/12/2012 Appointment: Verona Olivares WPtel: [phone] [facility] Follow up 07/12/2012 Patient Education: Patient [...] above medications. 06/07/2012 Appointment: Verona Olivares WPtel: [address] [place] [address] Other 06/07/2012 Patient Education: Patient Medication Summary Completed 06/07/2012 Patient Education: High Blood Pressure: Essential Hypertension Completed 06/07/2012 Appointment: Verona Olivares WPtel: [address] [place] [address] Other 05/29/2012 Visit Plan: Hypertension - well [...] for cough 12/01/2011 Appointment: Verona Olivares WPtel: [address] [place] [address] Follow up 12/01/2011 Patient Education: Patient Medication [...] change today. 11/18/2011 Appointment: Verona Olivares WPtel: [address] [place], [place] [phone] Other 11/18/2011 Patient Education: Patient Medication Summary [...] conerns. 11/09/2011 Appointment: Verona Olivares WPtel: [phone] [phone] Surgical Procedure 11/09/2011 Patient Education: Patient Medication [...] diet. 10/27/2011 Appointment: Verona Olivares WPtel: [phone] [facility] [place] New Patient 10/27/2011 Patient Education: Patient Medication Summary Completed 10/27/2011 Patient Education: Restless Legs Syndrome Completed 10/27/2011 Patient Education: Insomnia Completed 10/27/2011 Instructions Comment . URI - Pt advised to increase [...] pt to be used for cough . Ahgbj-agckj-uctg aches-patient sent for stat labs and influenza [...] medications. . Hypertension - uncontrolled - the patient [...] pt is tapered off of the antidepressant. L-TRYPTOPHAN - MAY HELP AIDE SLEEP.. Insomnia [...] infection-call if symptoms do not resolve . Restless leg syndrome- start on mirapex [...] back on added salt in the diet. extended release melatonin you can take up [...]
--- OUTSIDE RECORDS SUMMARY | 2019-03-02 10:53 | XMS REPORT | CCD ---
Author Author Verona Olivares Organization Verona Olivares MD, [facility] Address [address] [place] [address] Phone Care Team Providers Care Psych Arnp Name Role Phone Verona Olivares PP Unavailable CCM Unavailable Summary Purpose Interface Exchange Insurance Providers Payer name Policy type / Coverage type Covered alliance party ID Effective Begin Date Effective End Date [facility] [id number] Unknown Family history Mother Diagnosis Age At [...] Currently employed 10/27/[address]: 777490926 Never smoker 10/27/[address]: 367377247 Never drinks alcohol 10/27/2011 Has the patient [...] Instructions Augmentin 875 mg-125 mg tablet RxNorm: 885559 1 Tablet(s) PO BID 09/26/2018 10/05/2018 Active Kenalog 40 mg/mL suspension for injection RxNorm: 8452125 Milliliter(s) Inj 09/26/2018 09/26/2018 Inactive escitalopram 20 mg tablet RxNorm: 065991 1 Tablet(s) PO QPM 06/27/2018 01/22/2019 Active lisinopril 10 mg tablet RxNorm: 349304 1 Tablet(s) PO daily 06/21/2018 11/17/2018 Active escitalopram 10 mg tablet RxNorm: 036119 1 Tablet(s) PO QPM 05/11/2018 06/26/2018 Inactive lisinopril 10 mg tablet RxNorm: 197144 1 Tablet(s) PO daily 05/11/2018 06/20/2018 Inactive alprazolam 0.5 mg tablet RxNorm: 466711 TAKE ONE-HALF TO ONE TABLET BY MOUTH EVERY 6 HOURS NEEDED 09/20/2017 10/04/2017 Inactive Augmentin 875 mg-125 mg tablet RxNorm: 768461 1 Tablet(s) PO BID 03/08/2017 03/17/2017 Inactive alprazolam 0.5 mg tablet RxNorm: 647963 Tablet(s) PO Q6 as needed TAKE ONE-HALF TO ONE TABLET BY MOUTH EVERY 6 HOURS NEEDED 12/24/2016 01/22/2017 Inactive triamcinolone acetonide 0.5 % topical cream RxNorm: 5064299 1 Application TOP BID 09/06/2016 09/15/2016 Inactive Levaquin 500 mg tablet RxNorm: 147099 1 Tablet(s) PO daily 07/08/2016 07/14/2016 Inactive please call her when ready Levaquin 500 mg tablet RxNorm: 542320 1 Tablet(s) PO daily 07/08/2016 07/07/2016 Inactive alprazolam 0.5 mg tablet RxNorm: 654022 Tablet(s) PO Q6 as needed TAKE ONE-HALF TO ONE TABLET BY MOUTH EVERY 6 HOURS NEEDED 04/26/2016 12/23/2016 Inactive Generic For:*XANAX 0.5 MG TABLET 05/16/2013 1:18:18 PM (Appended: Controlled substance eRx refill - RxReferenceNumber: [id number]) alprazolam 0.5 mg tablet RxNorm: 274790 Tablet(s) PO Q6 as needed TAKE ONE-HALF TO ONE TABLET BY MOUTH EVERY 6 HOURS NEEDED 04/26/2016 09/19/2017 Inactive Generic For:*XANAX 0.5 MG TABLET 05/16/2013 1:18:18 PM (Appended: Controlled substance eRx refill - RxReferenceNumber: [id number]) betamethasone dipropionate 0.05 % topical cream RxNorm: 738751 1 TOP UD 1-2 x per day PRN 01/16/2016 No Stop Date Active Kenalog 40 mg/mL suspension for injection RxNorm: 2505728 Milliliter(s) Inj 01/14/2016 01/14/2016 Inactive prednisone 20 mg tablet RxNorm: 738685 2 Tablet(s) PO daily 01/14/2016 01/18/2016 Inactive alprazolam 0.5 mg tablet RxNorm: 586510 Tablet(s) PO Q6 as needed TAKE ONE-HALF TO ONE TABLET BY MOUTH EVERY 6 HOURS NEEDED 09/26/2015 04/25/2016 Inactive Generic For:*XANAX 0.5 MG TABLET 05/16/2013 1:18:18 PM (Appended: Controlled substance eRx refill - RxReferenceNumber: [id number]) azithromycin 250 mg tablet RxNorm: 289674 1 Tablet(s) PO UD 2 pills day one and 1 pill day 2-5 08/29/2015 09/02/2015 Inactive Keflex 500 mg capsule RxNorm: 951207 1 Capsule(s) PO TID 02/03/2015 02/09/2015 Inactive take a probiotic while on the abt Keflex 500 mg capsule RxNorm: 119222 1 Capsule(s) PO TID 02/03/2015 02/02/2015 Inactive take a probiotic while on the [facility] hydrocodone 5 mg-acetaminophen 325 mg tablet RxNorm: 098736 1 Tablet(s) PO Q6 PRN 01/27/2015 08/16/2015 Inactive Kenalog 40 mg/mL suspension for injection RxNorm: 3899032 2 Milliliter(s) Inj 05/02/2014 05/02/2014 Inactive Zithromax Z-Tomás 250 mg tablet RxNorm: 653843 1 Tablet(s) PO QPM 05/02/2014 05/06/2014 Inactive Rocephin 500 mg solution for injection RxNorm: 171564 1 Milliliter(s) Inj 05/02/2014 05/02/2014 Inactive metoprolol tartrate 25 mg tablet RxNorm: 688012 1/2 Tablet(s) PO BID TAKE ONE-HALF TABLET BY MOUTH TWICE DAILY 11/05/2013 02/03/2014 Inactive vilazodone 40 mg tablet RxNorm: 4728267 1 Tablet(s) PO daily 08/09/2013 02/03/2014 Inactive Zithromax Z-Tomás 250 mg tablet RxNorm: 672047 Tablet(s) PO 07/17/2013 11/04/2013 Inactive Rocephin 500 mg Solution for Injection RxNorm: 134332 Inj 07/17/2013 07/17/2013 Inactive Kenalog 40 mg/mL Susp for Injection RxNorm: 0328913 1 Milliliter(s) Inj 06/07/2013 06/07/2013 Inactive alprazolam 0.5 mg tablet RxNorm: 925086 1/2-1 Tablet(s) PO Q6 PRN 05/17/2013 No Stop Date Active alprazolam 0.5 mg tablet RxNorm: 245115 Tablet(s) PO TAKE ONE-HALF TO ONE TABLET BY MOUTH EVERY 6 HOURS NEEDED 05/17/2013 09/25/2015 Inactive Generic For:*XANAX 0.5 MG TABLET 05/16/2013 1:18:18 PM (Appended: Controlled substance eRx refill - RxReferenceNumber: [id number]) metoprolol tartrate 25 mg tablet RxNorm: 132731 Tablet(s) PO TAKE ONE-HALF TABLET BY MOUTH TWICE DAILY 02/12/2013 11/04/2013 Inactive metoprolol tartrate 25 mg tablet RxNorm: 049415 1/2 Tablet(s) PO BID 01/29/2013 05/28/2013 Inactive alprazolam 0.5 mg tablet RxNorm: 983287 1/2-1 Tablet(s) PO Q6 PRN 11/28/2012 05/17/2013 Inactive lisinopril 10 mg tablet RxNorm: 778285 1 Tablet(s) PO daily 10/30/2012 01/28/2013 Inactive vilazodone 40 mg tablet RxNorm: 8292987 1 Tablet(s) PO daily 08/08/2012 02/03/2013 Inactive metoprolol tartrate 25 mg tablet RxNorm: 813230 1/2 Tablet(s) PO BID 06/07/2012 10/04/2012 Inactive amoxicillin-potassium clavulanate 500 mg-125 mg tablet RxNorm: 248238 1 Tablet(s) PO TID 06/07/2012 06/13/2012 Inactive Ambien 5 mg tablet RxNorm: 008161 1 Tablet(s) PO HS PRN 05/02/2012 05/31/2012 Inactive lisinopril 10 mg tablet RxNorm: 526977 1 Tablet(s) PO daily 11/09/2011 06/05/2012 Inactive pramipexole 0.5 mg Tab RxNorm: 534372 1/2 Tablet(s) PO QHS 11/01/2011 01/29/2012 Inactive pramipexole 0.5 mg Tab RxNorm: 789766 1 Tablet(s) PO QHS 10/27/2011 10/31/2011 Inactive Fish Oil 1,200 mg-144 mg-216 mg Cap RxNorm: 1 Capsule(s) PO daily No Start Date Active potassium 99 mg Tab RxNorm: 1 Tablet(s) PO daily No Start Date 10/29/2012 Inactive betamethasone dipropionate 0.05 % topical cream RxNorm: 855248 1 TOP UD 1-2 x per day PRN No Start Date 01/15/2016 Inactive alprazolam 0.5 mg tablet RxNorm: 319270 1/2-1 Tablet(s) PO Q6 PRN No Start Date 11/27/2012 Inactive Ambien 5 mg tablet RxNorm: 552379 1 Tablet(s) PO HS PRN No Start Date 05/01/2012 Inactive calcium & magnesium carbonates 311 mg-232 mg Tab RxNorm: 019845 1 Tablet(s) PO BID No Start Date 10/29/2012 Inactive multivitamin Tab RxNorm: 1 Tablet(s) PO daily No Start Date 10/29/2012 Inactive vilazodone 40 mg tablet RxNorm: 7042318 1 Tablet(s) PO daily No Start Date 08/07/2012 Inactive Zithromax Z-Tomás 250 mg tablet RxNorm: 599721 Tablet(s) PO No Start Date 07/16/2013 Inactive Medication Administered Medication Codes Instructions Start Date Status Kenalog 40 mg/mL suspension for injection RxNorm: 4320979 Milliliter 09/26/2018 No longer Active Kenalog 40 mg/mL suspension for injection RxNorm: 3781956 Milliliter 01/14/2016 No longer Active Rocephin 500 mg solution for injection RxNorm: 855108 1Milliliter 05/02/2014 No longer Active Kenalog 40 mg/mL suspension for injection RxNorm: 3561709 2Milliliter 05/02/2014 No longer Active Rocephin 500 mg Solution for Injection RxNorm: 060075 07/17/2013 No longer Active Kenalog 40 mg/mL Susp for Injection RxNorm: 3635285 1Milliliter 06/07/2013 No longer Active Immunizations Vaccine [...] NEC ICD-9: 311 11/05/2013 ESSENTIAL HYPERTENSION SNOMED: 01193009 ICD-9: 401.9 11/05/2013 ACUTE BRONCHITIS ICD-9: 466.0 [...] Item Item Code Result Date Influenza A+B Vnh570 Influ A+B Negative 07/08/2016 Cbc With Differential [...] 29.7 pg 07/08/2016 Cbc With Differential Ord2 [place]% 6.8 % 07/08/2016 Cbc With Differential Ord2 [...] 1.19 K/ul 07/08/2016 Cbc With Differential Ord2 [place] ABS# 1.1 K/ul 07/08/2016 Cbc With Differential Ord2 Eos ABS# 0.0 K/ul 07/08/2016 Cbc With Differential Ord2 Baso ABS# 0.0 K/ul 07/08/2016 Comp Metabolic Rgx326 NA 134 mEq/L 07/08/2016 Comp Metabolic Uga155 K 3.9 mEq/L 07/08/2016 Comp Metabolic Zxy499 CL 101 mEq/L 07/08/2016 Comp Metabolic Wxj427 CO2 27.0 mEq/L 07/08/2016 Comp Metabolic Uwj128 ANION GAP 10 07/08/2016 Comp Metabolic Hqk317 GLUCOSE 120 mg/dL 07/08/2016 Comp Metabolic Jkr142 Creat 0.9 mg/dL 07/08/2016 Comp Metabolic Ahl466 eGFR 71 ml/min/1.73m2 07/08/2016 Comp Metabolic Wzk204 BUN 16 mg/dL 07/08/2016 Comp Metabolic Vyn314 B/C Ratio 18.4 Ratio 07/08/2016 Comp Metabolic Qwh305 CALCIUM 10.0 mg/dL 07/08/2016 Comp Metabolic Hon311 ALK PHOS 57 U/L 07/08/2016 Comp Metabolic Xkq100 AST(SGOT) 21 U/L 07/08/2016 Comp Metabolic Mfg120 ALT(SGPT) 20 U/L 07/08/2016 Comp Metabolic Aeq083 BILI T 1.1 mg/dL 07/08/2016 Comp Metabolic Cnr887 ALBUMIN 3.9 g/dL 07/08/2016 Comp Metabolic Vjx288 TPRO 6.2 g/dL 07/08/2016 Comp Metabolic Mpk223 GLOB 2.4 g/dL 07/08/2016 Comp Metabolic Olu914 A/G Ratio 1.6 Ratio 07/08/2016 Comp Metabolic Aqm812 Osmo 271 mOsmo 07/08/2016 Comp Metabolic Ego638 NA 130 mEq/L 08/29/2015 Comp Metabolic Ddq023 K 4.0 mEq/L 08/29/2015 Comp Metabolic Vps527 CL 99 mEq/L 08/29/2015 Comp Metabolic War204 CO2 21.0 mEq/L 08/29/2015 Comp Metabolic Dkn621 ANION GAP 14 08/29/2015 Comp Metabolic Xci149 GLUCOSE 105 mg/dL 08/29/2015 Comp Metabolic Qcc973 Creat 1.0 mg/dL 08/29/2015 Comp Metabolic Wqg685 eGFR 62 ml/min/1.73m2 08/29/2015 Comp Metabolic Ksd794 BUN 8 mg/dL 08/29/2015 Comp Metabolic Esc242 B/C Ratio 8.2 Ratio 08/29/2015 Comp Metabolic Ech149 CALCIUM 9.9 mg/dL 08/29/2015 Comp Metabolic Wyl790 ALK PHOS 93 U/L 08/29/2015 Comp Metabolic Ywu236 AST(SGOT) 16 U/L 08/29/2015 Comp Metabolic Ogz659 ALT(SGPT) 22 U/L 08/29/2015 Comp Metabolic Tob536 BILI T 0.6 mg/dL 08/29/2015 Comp Metabolic Fgi181 ALBUMIN 4.3 g/dL 08/29/2015 Comp Metabolic Akv826 TPRO 6.7 g/dL 08/29/2015 Comp Metabolic Dgf872 GLOB 2.4 g/dL 08/29/2015 Comp Metabolic Idj702 A/G Ratio 1.8 Ratio 08/29/2015 Comp Metabolic Odn990 Osmo 259 mOsmo 08/29/2015 Cbc With Differential [...] CPT-4: J3301 09/26/2018 THER/PROPH/DIAG INJ SC/IM CPT-4: 63047 09/26/2018 IMMUNIZATION ADMIN CPT- 4: 46461 06/27/2018 FLU VAC NO PRSV 4 RAHUL 3 YRS+ Formatting Model/CDA Sections, Assigned to/Zonia Martinez CPT-4: 71793Iruscsn 06/27/2018 IMMUNIZATION ADMIN CPT- 4: 51192 07/30/2016 IIV4 FLU VACC NO PRESERV ID SNOMED CT: 02167439 CPT-4: 43704 07/30/2016 TRIAMCINOLONE ACET INJ NOS CPT-4: J3301 01/14/2016 IMMUNIZATION ADMIN CPT- 4: 60269 07/23/2015 IMMUNIZATION ADMIN EACH ADD CPT-4: 87985 07/23/2015 FLU VACC 4 RAHUL 3 YRS PLUS IM Formatting Model/CDA Sections, Assigned to SNOMED CT: 53803452 CPT-4: 38389Ytjnzcy 07/23/2015 THER/PROPH/DIAG INJ SC/IM CPT-4: 76115 05/02/2014 ROCEPHIN, PER 250 MG CPT- 4: J0696 05/02/2014 TRIAMCINOLONE ACET INJ NOS CPT-4: J3301 05/02/2014 ROCEPHIN, PER 250 MG CPT- 4: J0696 07/17/2013 TRIAMCINOLONE ACET INJ NOS CPT-4: J3301 06/07/2013 BIOPSY SKIN LESION CPT- 4: 65151 11/09/2011 Vital Signs Date Vital 09/26/2018 Blood Pressure 1: 130/78 Code: 8480-6 BMI: 32.4 Code: 62223-0 Heart Rate 1: 67 bpm Height: 5'8" SpO2: 97% Temperature: 36.5 (C) / 97.7 (F) Weight: 213 lbs 06/27/2018 Blood Pressure 1: 132/78 Code: 8480-6 BMI: 33.9 Code: 41218-3 Heart Rate 1: 66 bpm Height: 5'8" SpO2: 95% Weight: 223 lbs 05/11/2018 Blood Pressure 1: 140/90 Code: 8480-6 BMI: 33.8 Code: 82378-1 Heart Rate 1: 74 bpm Height: 5'8" SpO2: 98% Weight: 222 lbs 03/08/2017 Blood Pressure 1: 144/86 Code: 8480-6 BMI: 31.2 Code: 88430-6 Heart Rate 1: 70 bpm Height: 5'8" SpO2: 98% Weight: 205 lbs 09/06/2016 Blood Pressure 1: 128/86 Code: 8480-6 BMI: 28.4 Code: 84857-8 Heart Rate 1: 86 bpm Height: 5'8" SpO2: 96% Weight: 187 lbs 07/08/2016 Blood Pressure 1: 120/60 Code: 8480-6 BMI: 28.4 Code: 50914-4 Height: 5'8" Temperature: 37.8 (C) / 100.1 (F) Weight: 187 lbs 01/14/2016 Blood Pressure 1: 152/86 Code: 8480-6 BMI: 30.4 Code: 13954-2 Heart Rate 1: 83 bpm Height: 5'8" SpO2: 97% Weight: 200 lbs 11/17/2015 Blood Pressure 1: 142/90 Code: 8480-6 BMI: 33.9 Code: 92104-1 Heart Rate 1: 75 bpm Height: 5'8" SpO2: 97% Weight: 223 lbs 08/29/2015 BMI: 35.6 Code: 60853-3 Heart Rate 1: 94 bpm Height: 5'8" SpO2: 98% Weight: 234 lbs 01/27/2015 Blood Pressure 1: 140/94 Code: 8480-6 Heart Rate 1: 88 bpm Height: 5'8" SpO2: 98% Weight: 08/05/2014 Blood Pressure 1: 138/82 Code: 8480-6 BMI: 33.6 Code: 01630-7 Heart Rate 1: 76 bpm Height: 5'8" Weight: 221 lbs 05/02/2014 Blood Pressure 1: 142/82 Code: 8480-6 Heart Rate 1: 84 bpm Height: SpO2: 100% Temperature: 37.1 (C) / 98.7 (F) Weight: 02/04/2014 Blood Pressure 1: 108/78 Code: 8480-6 BMI: 36.2 Code: 51493-0 Heart Rate 1: 60 bpm Height: 5'8" Weight: 238 lbs 11/05/2013 Blood Pressure 1: 134/74 Code: 8480-6 BMI: 35.9 Code: 33667-9 Heart Rate 1: 68 bpm Height: 5'8" Weight: 236 lbs 07/17/2013 Blood Pressure 1: 136/88 Code: 8480-6 BMI: 35.9 Code: 98968-5 Heart Rate 1: 72 bpm Height: 5'8" Temperature: 36.4 (C) / 97.6 (F) Weight: 236 lbs 06/07/2013 Blood Pressure 1: 134/92 Code: 8480-6 Heart Rate 1: 72 bpm Temperature: 37.0 (C) / 98.6 (F) Weight: 04/30/2013 Blood Pressure 1: 148/78 Code: 8480-6 BMI: 35.1 Code: 47297-3 Heart Rate 1: 64 bpm Height: 5'8" Weight: 231 lbs 01/29/2013 Blood Pressure 1: 128/84 Code: 8480-6 BMI: 34.4 Code: 11686-0 Heart Rate 1: 76 bpm Height: 5'8" Weight: 226 lbs 10/30/2012 Blood Pressure 1: 118/72 Code: 8480-6 BMI: 33.5 Code: 93810-5 Heart Rate 1: 64 bpm Height: 5'8" Weight: 220 lbs 07/12/2012 Blood Pressure 1: 134/88 Code: 8480-6 Heart Rate 1: 64 bpm Weight: 214 lbs 06/07/2012 Blood Pressure 1: 152/92 Code: 8480-6 Heart Rate 1: 68 bpm Respiratory Rate: 16 bpm Temperature: 36.7 (C) / 98.0 (F) Weight: 209 lbs 12/01/2011 Blood Pressure 1: 140/82 Code: 8480-6 BMI: 29.5 Code: 31125-0 Heart Rate 1: 72 bpm Height: 5'8" [...] 1: 144/90 Code: 8480-6 BMI: 29.3 Code: 12339-6 Heart Rate 1: 76 bpm Height: 5'8" [...] Other allergic rhinitis[ICD10: J30.89] Solange Olivares MD, [facility] CPT- 4: 42293 09/26/2018 ([id number]) 40242 EST. PATIENT, LEVEL III Diagnosis: Essential (primary) hypertension[ICD10: I10] Diagnosis: Major depressive disorder, recurrent, moderate[ICD10: F33.1] Diagnosis: Generalized anxiety disorder[ICD10: F41.1] Diagnosis: Encounter for immunization[ICD10: Z23] Verona Olivares MD, [facility] CPT-4: 85778 06/27/2018 ([id number]) 18137 EST. PATIENT, LEVEL IV Diagnosis: Essential (primary) hypertension[ICD10: I10] Diagnosis: Major depressive disorder, recurrent, moderate[ICD10: F33.1] Diagnosis: Generalized anxiety disorder[ICD10: F41.1] Verona Olivares MD, [facility] CPT-4: 92909 05/11/2018 ([id number]) 72786 EST. PATIENT, LEVEL III Diagnosis: Acute recurrent maxillary sinusitis[ICD10: J01.01] Diagnosis: Other hallucinations[ICD10: R44.2] Diagnosis: Allergic rhinitis due to pollen[ICD10: J30.1] Che Olivares MD, [facility] CPT-4: 20201 03/08/2017 ([id number]) 60040 EST. PATIENT, LEVEL II Diagnosis: Cellulitis of right upper limb[ICD10: L03.113] Che Olivares MD, [facility] CPT-4: 52948 09/06/2016 ([id number]) 41028 EST. PATIENT, LEVEL III Diagnosis: Cough[ICD10: R05] Diagnosis: Fever, unspecified[ICD10: R50.9] Diagnosis: Pain, unspecified[ICD10: R52] Che Olivares MD, [facility] CPT-4: 94752 07/08/2016 73709 EST. PATIENT, LEVEL IV Diagnosis: Rash and other nonspecific skin eruption[ICD10: R21] Solange Olivares MD, [facility] CPT-4: 23737 01/14/2016 ([id number]) 36520 EST. PATIENT, LEVEL III Diagnosis: Pain in left shoulder[ICD10: M25.512] Diagnosis: Pain in right shoulder[ICD10: M25.511] Diagnosis: Bicipital tendinitis, left shoulder[ICD10: M75.22] Che Olivares MD, [facility] CPT-4: 54249 11/17/2015 [id number] EST. PATIENT, LEVEL IV Diagnosis: Epigastric pain[ICD10: R10.13] Diagnosis: Acute upper respiratory infection, unspecified[ICD10: J06.9] Solange Olivares MD, [facility] CPT-4: 11383 08/29/2015 ([id number]) 97967 EST. PATIENT, LEVEL III Diagnosis: Left knee pain[ICD9: 719.46] Diagnosis: ACUTE URI[ICD9: 465.9] Diagnosis: ALLERGIC RHINITIS[ICD9: 477.9] Che Olivares MD, [facility] CPT-4: 34060 01/27/2015 ([id number]) 96728 EST. PATIENT, LEVEL III Diagnosis: Elevated blood pressure (not hypertension)[ICD9: 796.2] Diagnosis: Biceps tendinitis[ICD9: 726.12] Diagnosis: Wrist pain, acute[ICD9: 719.43] Verona Olivares MD, [facility] CPT-4: 47585 08/05/2014 ([id number]) 76906 EST. PATIENT, LEVEL III Diagnosis: Acute maxillary sinusitis[ICD9: 461.0] Verona Olivares MD, [facility] CPT-4: 15070 05/02/2014 ([id number]) 22909 EST. PATIENT, LEVEL III Diagnosis: INSOMNIA IN OTHER DIS[ICD9: 327.01] Verona Olivares MD, [facility] CPT- 4: 18630 02/04/2014 ([id number]) 36126 EST. PATIENT, LEVEL III Diagnosis: ESSENTIAL HYPERTENSION[SNOMED: 81960155] Diagnosis: DEPRESSIVE DISORDER NEC[ICD9: 311] Verona Olivares MD [facility] CPT- 4: 01721 11/05/2013 ([id number]) 09845 EST. PATIENT, LEVEL III Diagnosis: ACUTE BRONCHITIS[ICD9: 466.0] [facility] CPT-4: 53732 07/17/2013 ([id number]) 59754 EST. PATIENT, LEVEL III Diagnosis: ACUTE URI[ICD9: 465.9] Diagnosis: COUGH[ICD9: 786.2] Diagnosis: ALLERGIC RHINITIS[ICD9: 477.9] [facility] CPT-4: 81807 06/07/2013 ([id number]) 87088 EST. PATIENT, LEVEL III Diagnosis: ESSENTIAL HYPERTENSION[SNOMED: 81109825] Diagnosis: DEPRESSIVE DISORDER NEC[ICD9: 311] Verona Olivares MD [facility] CPT- 4: 96816 04/30/2013 ([id number]) 79255 EST. PATIENT, LEVEL III Diagnosis: ESSENTIAL HYPERTENSION[SNOMED: 49730345] Diagnosis: DEPRESSIVE DISORDER NEC[ICD9: 311] Verona Olivares MD [facility] CPT- 4: 83218 01/29/2013 ([id number]) 29378 EST. PATIENT, LEVEL IV Diagnosis: ESSENTIAL HYPERTENSION[SNOMED: 09784712] Diagnosis: DEPRESSIVE DISORDER NEC[ICD9: 311] Diagnosis: OBESITY[ICD9: 278.00] [facility] CPT-4: 45234 10/30/2012 ([id number]) 08184 EST. PATIENT, LEVEL III Diagnosis: ESSENTIAL HYPERTENSION[SNOMED: 46200877] Diagnosis: HYPERLIPIDEMIA[ICD9: 272.4] Diagnosis: DEPRESSIVE DISORDER NEC[ICD9: 311] [facility] CPT- 4: 27584 07/12/2012 ([id number]) 90699 EST. PATIENT, LEVEL IV Diagnosis: ESSENTIAL HYPERTENSION[SNOMED: 51354132] Diagnosis: DEPRESSIVE DISORDER NEC[ICD9: 311] Diagnosis: Palpitations[ICD9: 785.1] Diagnosis: Acute maxillary sinusitis[ICD9: 461.0] Verona Olivares MD, [facility] CPT-4: 60262 06/07/2012 07102 EST. PATIENT, LEVEL IV Diagnosis: ESSENTIAL HYPERTENSION[SNOMED: 76874550] Diagnosis: COUGH[ICD9: 786.2] Diagnosis: Upper respiratory infection[ICD9: 465.9] ABDIAS Monroe MD CPT-4: 10807 12/01/2011 ([id number]) 54430 EST. PATIENT, LEVEL III Diagnosis: ESSENTIAL HYPERTENSION[SNOMED: 09517782] ABDIAS Monroe MD CPT-4: 08340 11/18/2011 ([id number]) 12768 EST. PATIENT, LEVEL III Diagnosis: ESSENTIAL HYPERTENSION[SNOMED: 06738376] ABDIAS Monroe MD CPT-4: 28305 11/09/2011 ([id number]) OFFICE VISIT, NEW - LEVEL 4 Diagnosis: Restless leg syndrome[ICD9: 333.94] Diagnosis: INSOMNIA IN OTHER DIS[ICD9: 327.01] Diagnosis: Elevated blood pressure (not hypertension)[ICD9: 796.2] Verona Olivares MD, [facility] CPT-4: 85008 10/27/2011 Plan of Care Planned Activity Notes [...] allergy spray. 09/26/2018 Appointment: [facility]el: [phone] [place] Portal Appointment Requests 09/26/2018 Appointment: Solange Snyder WPtel: [facility] [place] (15 min) Moderate 09/26/2018 Patient Education: [...] 20mg nightly 06/27/2018 Appointment: Verona Olivares WPtel: [facility] (15 min) Moderate 06/27/2018 Patient Education: Patient Medication Summary Completed 06/27/2018 Patient Education: Depression Completed 06/27/2018 Appointment: Verona Olivares WPtel: [phone] (15 min) Moderate 06/07/2018 Visit Plan: Hypertension [...] daily. 05/11/2018 Appointment: Verona [facility]ares [facility]el[facility] [phone] [facility] (15 min) Moderate 05/11/2018 Patient Education: Patient [...] not resolve 03/08/2017 Appointment: Che Garcia WPtel: [phone] (15 min) Moderate 03/08/2017 Patient Education: Patient [...] of plan. 09/06/2016 Appointment: Che Garcia WPtel: [phone] (15 min) Moderate 09/06/2016 Patient Education: Patient Medication Summary Completed 09/06/2016 Appointment: Injection 07/30/2016 Patient Education: Patient Medication Summary Completed 07/30/2016 Visit Plan: Jwqyv-dtewu-ynao aches-patient sent for stat labs and influenza swab-will treat as indicated-instructed patient we will call her with the results of her testings-tylenol/motrin as needed for fever, increase po fluids. Patient verbalized understanding of plan. 07/08/2016 Appointment: Che Garcia WPtel: [phone] (15 min) Moderate 07/08/2016 Patient Education: Patient [...] completely resolve. 01/27/2015 Appointment: [phone] [phone] Sick 01/27/2015 Patient Education: Patient Medication Summary [...] blood pressures. 08/05/2014 Appointment: Verona Olivares WPtel: [facility] Follow up 08/05/2014 Patient Education: Patient Medication [...] for sleep. 02/04/2014 Appointment: Verona Olivares WPtel: [facility] Follow up 02/04/2014 Patient Education: Patient [...] the antidepressant. 11/05/2013 Appointment: Verona Olivares WPtel: [facility] Follow up 11/05/2013 Patient Education: Patient Medication Summary Completed 11/05/2013 Patient Education: Hypertension Completed 11/05/2013 Appointment: Verona Olivares WPtel: [address] [place], [place] [phone] Follow up 10/18/2013 Appointment: Verona Olivares WPtel: [address] [place], [place] [phone] Follow up 08/07/2013 Visit Plan: Bronchitis - acute case of bronchitis identified. Pt has been given antibiotics, breathing treatments as appropriate, and pt has been instructed to call if symptoms are not improved, or if symptoms acutely worsen. RX sent to patient's pharmacy. 07/17/2013 Appointment: Che Garcia WPtel: [address] [place], [place] [phone] [place] [address] Sick 07/17/2013 Patient Education: Patient Medication Summary [...] allergy spray. 06/07/2013 Appointment: Che Garcia WPtel: [address] [place], [place] [phone] Sick 06/07/2013 Patient Education: Patient Medication Summary [...] current medications. 04/30/2013 Appointment: Verona Olivares WPtel: [facility] Follow up 04/30/2013 Patient Education: Patient Medication [...] current medications. 01/29/2013 Appointment: Verona Olivares WPtel: [address] [place], [place] [phone] Follow up 01/29/2013 Patient Education: Patient Medication [...] exercise options. 10/30/2012 Appointment: Verona Olivares WPtel: [facility] Follow up 10/30/2012 Patient Education: Patient Medication [...] [facility]el[id number] Follow up 07/12/2012 Patient Education: Patient Medication [...] above medications. 06/07/2012 Appointment: Verona Olivares WPtel: [address] [place] [address] Other 06/07/2012 Patient Education: Patient Medication Summary Completed 06/07/2012 Patient Education: High Blood Pressure: Essential Hypertension Completed 06/07/2012 Appointment: Verona Olivares WPtel: [address] [place] [address] Other 05/29/2012 Visit Plan: Hypertension - well [...] for cough 12/01/2011 Appointment: Verona Olivares WPtel: [address] [place] [address] Follow up 12/01/2011 Patient Education: Patient Medication [...] change today. 11/18/2011 Appointment: Verona Olivares WPtel: [address] [place], [place] [phone] Other 11/18/2011 Patient Education: Patient Medication Summary [...] 11/09/2011 Appointment: Verona Olivares WPtel: [phone] [id number] Surgical Procedure 11/09/2011 Patient Education: Patient Medication [...] the diet. 10/27/2011 Appointment: [id number] [place] New Patient 10/27/2011 Patient Education: Patient [...] if symptoms do not completely resolve. . [id number] aches-patient sent for stat labs and influenza [...] 150/80 level, therefore, no medication change today. Topical steroid in addition to benadryl cream [...]
--- OUTSIDE RECORDS SUMMARY | 2019-03-02 10:54 | XMS REPORT | Continuity of Care Document ---
Author Organization Unknown Address Unknown Allergies Active Description Code Type Severity Reaction Onset Reported/Identified Relationship to Patient Clinical Status Yes No Known Drug Allergies [id number] Drug Allergy Unknown N/A 08/28/2008 Medications There is no data. Problems Date Dx Coded Attending Type Code Diagnosis Diagnosed By 01/26/2015 MAYE FORRESTER APRN Ot 719.46 01/31/2015 Ot V76.12 01/31/2015 Ot V76.12 01/31/2015 Ot V76.12 01/31/2015 TACOS CARBAJAL, CRYSTAL Guallpa Ot V76.12 01/31/2015 LATHA WEISS MATRIX BATH OPERATOR Ot V76.12 03/07/2015 LATHA WEISSP Ot 719.46 05/14/2015 Ot V76.12 05/14/2015 Ot V76.12 05/14/2015 Ot V76.12 05/14/2015 TACOS CARBAJAL, CRYSTAL Guallpa Ot V76.12 05/14/2015 LATHA WEISS MATRIX BATH OPERATOR Ot V76.12 05/14/2015 LATHA WEISSP Ot 719.46 05/20/2015 TACOS CARBAJAL, CRYSTAL A Ot V76.12 05/20/2015 TACOS CARBAJAL, CRYSTAL Guallpa Ot V76.12 05/30/2015 TACOS CARBAJAL, CRYSTAL A Ot V76.12 11/17/2015 Ot V76.12 11/17/2015 Ot V76.12 11/17/2015 TACOS CARBAJAL, CRYSTAL Guallpa Ot V76.12 11/17/2015 LATHA WEISS MATRIX BATH OPERATOR Ot V76.12 11/17/2015 LATHA WEISS MATRIX BATH OPERATOR Ot 719.46 11/17/2015 TACOS CARBAJAL, CRYSTAL Guallpa Ot V76.12 12/04/2015 LATHA WEISS MATRIX BATH OPERATOR Ot M25.511 12/04/2015 LATHA WEISS MATRIX BATH OPERATOR Ot M25.512 04/25/2017 LATHA WEISS MATRIX BATH OPERATOR Ot M25.511 PAIN IN RIGHT SHOULDER 04/25/2017 LATHA WEISS MATRIX BATH OPERATOR Ot M25.512 PAIN IN LEFT SHOULDER 04/26/2017 CLEMENTINE BULLARD APRN Ot G47.10 HYPERSOMNIA, UNSPECIFIED 04/26/2017 CLEMENTINE BULLARD AUTO CLUTCH SPECIALIST Ot R43.9 UNSPECIFIED DISTURBANCES OF SMELL AND TA 04/26/2017 CLEMENTINE BULLARD AUTO CLUTCH SPECIALIST Ot R53.83 OTHER FATIGUE 04/26/2017 LATHA WEISS MATRIX BATH OPERATOR Ot M25.511 PAIN IN RIGHT SHOULDER 04/26/2017 LATHA WEISS MATRIX BATH OPERATOR Ot M25.512 PAIN IN LEFT SHOULDER 04/26/2017 LATHA WEISS Collette MATRIX BATH OPERATOR Ot M25.511 PAIN IN RIGHT SHOULDER 04/26/2017 LATHA WEISS Collette MATRIX BATH OPERATOR Ot M25.512 PAIN IN LEFT SHOULDER 04/27/2017 CLEMENTINE BULLARD APRN Ot G47.10 HYPERSOMNIA, UNSPECIFIED 04/27/2017 CLEMENTINE BULLARD AUTO CLUTCH SPECIALIST Ot R43.9 UNSPECIFIED DISTURBANCES OF SMELL AND TA 04/27/2017 CLEMENTINE BULLARD AUTO CLUTCH SPECIALIST Ot R53.83 OTHER FATIGUE 05/11/2017 CORBY DORANJAN Ot R06.00 DYSPNEA, UNSPECIFIED 05/11/2017 CORBY DORANJAN Ot R43.9 UNSPECIFIED DISTURBANCES OF SMELL AND TA 05/11/2017 CORBY DORANJAN M Ot R53.83 OTHER FATIGUE 05/11/2017 CORBY DORANJAN Ot R06.00 DYSPNEA, UNSPECIFIED 05/11/2017 CORBY DORANJAN Ot R43.9 UNSPECIFIED DISTURBANCES OF SMELL AND TA 05/11/2017 CORBY DORANJAN M Ot R53.83 OTHER FATIGUE 05/11/2017 CORBY DORANJAN Ot R43.9 UNSPECIFIED DISTURBANCES OF SMELL AND TA 05/11/2017 CORBY DORANJAN Ot R53.83 OTHER FATIGUE 05/11/2017 CORBY DORANJAN Ot R43.9 UNSPECIFIED DISTURBANCES OF SMELL AND TA 05/11/2017 CORBY DORANJAN Ot R53.83 OTHER FATIGUE 05/11/2017 CORBY DO, RANJAN M Ot R06.00 DYSPNEA, UNSPECIFIED 05/11/2017 CORBY DO, RANJAN M Ot R43.9 UNSPECIFIED DISTURBANCES OF SMELL AND TA 05/11/2017 CORBY DO, RANJAN M Ot R53.83 OTHER FATIGUE 05/13/2017 CORBY DO, RANJAN M Ot R43.9 UNSPECIFIED DISTURBANCES OF SMELL AND TA 05/13/2017 CORBY DO, RANJAN M Ot R06.00 DYSPNEA, UNSPECIFIED 05/13/2017 CORBY DO, RANJAN M Ot R43.9 UNSPECIFIED DISTURBANCES OF SMELL AND TA 05/13/2017 CORBY DO, RANJAN M Ot R53.83 OTHER FATIGUE 05/13/2017 CORBY DO, RANJAN M Ot R43.9 UNSPECIFIED DISTURBANCES OF SMELL AND TA 05/13/2017 CORBY DO, RANJAN M Ot R53.83 OTHER FATIGUE 06/13/2017 CANDICE CARBAJAL, ODALIS Guallpa Ot R44.2 OTHER HALLUCINATIONS 06/15/2017 ODALIS HARVEY MD Ot R44.2 OTHER HALLUCINATIONS 06/21/2018 LATHA WEISS MATRIX BATH OPERATOR Ot M25.511 PAIN IN RIGHT SHOULDER 06/21/2018 LATHA WEISS MATRIX BATH OPERATOR Ot M25.512 PAIN IN LEFT SHOULDER 06/21/2018 CORBY DO, RANJAN M Ot R43.9 UNSPECIFIED DISTURBANCES OF SMELL AND TA 06/21/2018 CORBY DO, RANJAN M Ot R06.00 DYSPNEA, UNSPECIFIED 06/21/2018 CORBY DO, RANJAN M Ot R43.9 UNSPECIFIED DISTURBANCES OF SMELL AND TA 06/21/2018 CORBY DOANKURRANJAN M Ot R53.83 OTHER FATIGUE 06/21/2018 CORBY DO, RANJAN M Ot R43.9 UNSPECIFIED DISTURBANCES OF SMELL AND TA 06/21/2018 CORBY DO, RANJAN M Ot R53.83 OTHER FATIGUE 06/21/2018 CANDICE CARBAJAL, ODALIS Guallpa Ot R44.2 OTHER HALLUCINATIONS 06/21/2018 TACOS CARBAJAL, CRYSTAL Guallpa Ot Z12.31 ENCNTR SCREEN MAMMOGRAM FOR MALIGNANT NE 02/28/2019 LATHA WEISS MATRIX BATH OPERATOR Ot M25.511 PAIN IN RIGHT SHOULDER 02/28/2019 LATHA WEISSP Ot M25.512 PAIN IN LEFT SHOULDER 02/28/2019 RANJAN TAVAREZ DO Collette Ot R43.9 UNSPECIFIED DISTURBANCES OF SMELL AND TA 02/28/2019 CORBY DO RANJAN Collette Ot R06.00 DYSPNEA, UNSPECIFIED 02/28/2019 CORBY DORANJAN Collette Ot R43.9 UNSPECIFIED DISTURBANCES OF SMELL AND TA 02/28/2019 CORBY DORANJAN Collette Ot R53.83 OTHER FATIGUE 02/28/2019 CORBY SALAZAR RANJAN Collette Ot R43.9 UNSPECIFIED DISTURBANCES OF SMELL AND TA 02/28/2019 CORBY DO RANJAN Collette Ot R53.83 OTHER FATIGUE 02/28/2019 ODALIS HARVEY MD Ot R44.2 OTHER HALLUCINATIONS 02/28/2019 CRYSTAL OLIVARES MD Ot Z12.31 ENCNTR SCREEN MAMMOGRAM FOR MALIGNANT NE Procedures There is no data. Results There is no data. Encounters ACCT No. Visit Date/Time Discharge Status Pt. Type Provider Facility Loc./Unit Complaint [id number] 05/16/2018 07:56:00 05/16/2018 23:59:59 CLS Outpatient CRYSTAL OLIVARES MD [facility] RAD SCREENING [id number] 06/07/2017 11:30:00 06/07/2017 23:59:59 CLS Outpatient ODALIS HARVEY MD [facility] RAD OLFACTORY HALLUCINATION [id number] 05/02/2017 07:47:00 05/02/2017 23:59:59 CLS Outpatient RANJAN TAVAREZ DO [facility] RT R06.00 [id number] 04/29/2017 07:38:00 04/29/2017 23:59:59 CLS Outpatient RANJAN TAVAREZ DO [facility] RT R43.9 [id number] 04/27/2017 08:34:00 04/27/2017 23:59:59 CLS Outpatient RANJAN TAVAREZ DO [facility] RAD R43.9 OLFACTORY IMPAIRMENT [id number] 04/26/2017 10:00:00 04/26/2017 10:24:00 DIS Outpatient CLEMENTINE BULLARD APRN [facility] SLEEP SNORING, OBESITY, FATIGUE [id number] 11/17/2015 13:38:00 11/17/2015 23:59:59 CLS Outpatient LATHA WEISS [facility] RAD SYED EUBANKS [id number] 05/14/2015 09:27:00 05/14/2015 23:59:59 CLS Outpatient CRYSTAL OLIVARES MD [facility] RAD [id number] 01/31/2015 09:29:00 01/31/2015 23:59:59 CLS Outpatient LATHA WEISS [facility] RAD [id number] 01/26/2015 11:41:00 01/26/2015 12:32:00 DIS Emergency FORRESTERMAYE APRN [facility] ER [id number] 04/05/2014 06:53:00 04/05/2014 23:59:59 CLS Outpatient LATHA WEISS [facility] RAD [id number] 2013 07:17:00 2013 23:59:59 CLS Outpatient CRYSTAL OLIVARES MD [facility] RAD [id number] 03/16/2019 08:30:00 PEN Preadmit JAUN OJEDA MD [facility] CATARACT LEFT EYE [id number] 03/14/2019 10:00:00 PEN Preadmit JAUN OJEDA MD [facility] PREOP CATARACT LEFT EYE [id number] 03/02/2019 12:45:00 PEN Preadmit JAUN OJEDA MD [facility] CATARACT RIGHT EYE [id number] 03/01/2019 05:57:00 ACT Outpatient JAUN OJEDA MD [facility] PREOP CATARACT LEFT EYE [id number] 01/31/2015 09:39:00 Document Registration [id number] 03/09/2012 13:03:00 Document Registration [id number] 02/23/2011 08:09:00 Document Registration [id number] 01/06/2010 07:04:00 Document Registration 0000 07/13/2017 15:00:52 07/13/2017 23:59:59 CLS Outpatient Crystal Olivares [id number] 05/14/2015 09:27:26 ACT Document Registration
--- NOTE | 2019-03-02 11:13 | Ophthalmologist Pre-Op Note ---
Pre-Operative Progress Note H&P Reviewed The H&P was reviewed, patient examined and no changes noted. Date H&P Reviewed: March 02, 2019 Time H&P Reviewed: 11:06 Pre-Op Dx Cataract, Right Eye JAUN OJEDA MD March 02, 2019 11:13
--- NOTE | 2019-03-02 11:32 | Ophthalmology Operative Report ---
Cataract removal/placement IOL PREOPERATIVE DIAGNOSIS: Cataract Right Eye POSTOPERATIVE DIAGNOSIS: Cataract Right Eye PROCEDURE: Cataract removal and placement of posterior chamber implant, right eye SURGEON: Devin Ojeda ANESTHESIA: Topical with sedation COMPLICATIONS: None ESTIMATED BLOOD LOSS: Minimal DESCRIPTION OF PROCEDURE: After proper informed consent was obtained, the patient, a 63 female, was taken to the Operating Room and the right eye was anesthetized with tetracaine. The right eye was then prepped and draped in the usual manner. A wire lid speculum was placed. A paracentesis was made at the left hand position. Preservative free lidocaine was injected into the anterior chamber followed by viscoelastic. A clear corneal incision was made in the temporal position. A capsulorrhexis was preformed and the central nuclear and cortical material were removed. The posterior capsule was polished and Kelton 19.5 AU00T0 IOL was placed into the capsular bag. The residual viscoelastic was aspirated and balanced saline solution was injected into the anterior chamber. Moxifloxacin was injected into the anterior chamber. The wound was checked and found to be water tight. The patient tolerated the procedure well without complications. DEVIN OJEDA MD March 02, 2019 11:32
[2019-03-02 11:38] VITALS: BP 125/76
[2019-03-02] MEDS ORDERED: acetaZOLAMIDE ER 500 MG CAP (DIAMOX SEQUELS) PO ONE (12:30)
--- NOTE | 2019-03-02 13:21 | Anesthesia-General Post-Op ---
MAC Patient Condition Mental Status/LOC: Same as Preop Cardiovascular: Satisfactory Nausea/Vomiting: Absent Respiratory: Satisfactory Pain: Controlled Complications: Absent Post Op Complications Complications None Follow Up Care/Instructions Patient Instructions None needed. Anesthesiology Discharge Order Discharge Order Patient was seen after the procedure and she was doing well, no complaints, stable vital signs, no apparent adverse anesthesia problems. MERE BUTLER DO March 02, 2019 13:21
== END 2019-03-02 11:40 | disposition home or self-care (01) ==
LOC: SDC 10:12
PROVIDERS: ATTEND Specialist
DX: H25.11 Age-related nuclear cataract, right eye (principal); I10 Essential (primary) hypertension; F41.9 Anxiety disorder, unspecified; F32.9 Major depressive disorder, single episode, unspecified; Z79.899 Other long term (current) drug therapy

== ENCOUNTER 2019-03-14 05:34 | Outpatient (CLI) | payer BC ==
[~2019-03-14] VITALS: Ht 172.7 cm; Wt 102.1 kg
== END 2019-03-14 12:04 | disposition home or self-care (01) ==
LOC: PREOP 05:34
PROVIDERS: ATTEND Specialist
DX: Z01.818 Encounter for other preprocedural examination (principal)

== ENCOUNTER 2019-03-16 06:50 | Day surgery (SDC) | payer BC ==
[~2019-03-16] VITALS: Ht 172.7 cm; Wt 102.1 kg
[2019-03-16] MEDS ORDERED: POVIDONE (BETADINE) OPHTH SOLN 5% 30 ML OP ONE (07:00)
[2019-03-16] MEDS ORDERED: LIDOCAINE PF 1% 2 ML AMP IR PRN (07:00)
[2019-03-16] MEDS ORDERED: TIMOLOL MALEATE 0.5% 5 ML (TIMOPTIC) BTL OU PRN (07:00)
[2019-03-16] MEDS ORDERED: MOXIFLOXACIN OPHTH SOLN 5 MG/ML 0.3 ML SYRINGE OP ONE (07:00)
[2019-03-16 07:02] VITALS: BP 137/92
[2019-03-16] MEDS: TETRACAINE 0.5% OPHTH SOLN 4 ML BTL (SINGLE DOSE ONLY) OU PRN ×4 (07:04→07:29)
[2019-03-16] MEDS: CYCLOPENTOLATE 1% (CYCLOGYL) 2 ML DROPS OP SCH ×3 (07:16→07:29)
[2019-03-16] MEDS: PHENYLEPHRINE 10% OPHTH (NEO-SYN) 5 ML BTL OU SCH ×3 (07:16→07:29)
[2019-03-16] MEDS ORDERED: MIDAZOLAM 2 MG/2 ML (VERSED) VIAL ONE (07:59)
--- NOTE | 2019-03-16 08:07 | Ophthalmologist Pre-Op Note ---
Pre-Operative Progress Note H&P Reviewed The H&P was reviewed, patient examined and no changes noted. Date H&P Reviewed: March 16, 2019 Time H&P Reviewed: 08:06 Pre-Op Dx Cataract, Left Eye JUAN OJEDA MD March 16, 2019 08:06
--- NOTE | 2019-03-16 08:28 | Ophthalmology Operative Report ---
Cataract removal/placement IOL PREOPERATIVE DIAGNOSIS: Cataract Left Eye POSTOPERATIVE DIAGNOSIS: Cataract Left Eye PROCEDURE: Cataract removal and placement of posterior chamber implant, left eye SURGEON: Devin Ojeda ANESTHESIA: Topical with sedation COMPLICATIONS: None ESTIMATED BLOOD LOSS: Minimal DESCRIPTION OF PROCEDURE: After proper informed consent was obtained, the patient, a 63 female, was taken to the Operating Room and the left eye was anesthetized with tetracaine. The left eye was then prepped and draped in the usual manner. A wire lid speculum was placed. A paracentesis was made at the left hand position. Preservative free lidocaine was injected into the anterior chamber followed by viscoelastic. A clear corneal incision was made in the temporal position. A capsulorrhexis was preformed and the central nuclear and cortical material were removed. The posterior capsule was polished and an Kelton 20.5 AU00T0 was placed into the capsular bag. The residual viscoelastic was aspirated and balanced saline solution was injected into the anterior chamber. Moxifloxacin was injected into the anterior chamber. The wound was checked and found to be water tight. The patient tolerated the procedure well without complications. DEVIN OJEDA MD March 16, 2019 08:28
[2019-03-16] MEDS ORDERED: acetaZOLAMIDE ER 500 MG CAP (DIAMOX SEQUELS) PO ONE (08:30)
[2019-03-16 08:40] VITALS: BP 142/79
--- NOTE | 2019-03-16 09:12 | Anesthesia-General Post-Op ---
MAC Patient Condition Mental Status/LOC: Same as Preop Cardiovascular: Satisfactory Nausea/Vomiting: Absent Respiratory: Satisfactory Pain: Controlled Complications: Absent Post Op Complications Complications None Follow Up Care/Instructions Patient Instructions None needed. Anesthesiology Discharge Order Discharge Order Patient is doing well, no complaints, stable vital signs, no apparent adverse anesthesia problems. No complications reported per nursing. YAHIR PERALTA CRNA March 16, 2019 09:12
== END 2019-03-16 08:40 | disposition home or self-care (01) ==
LOC: SDC 06:50
PROVIDERS: ATTEND Specialist
DX: H25.12 Age-related nuclear cataract, left eye (principal); I10 Essential (primary) hypertension; F32.9 Major depressive disorder, single episode, unspecified; Z79.899 Other long term (current) drug therapy

== ENCOUNTER 2019-04-29 13:27 | Emergency (ER) | payer BC ==
[~2019-04-29] VITALS: Ht 172.7 cm; Wt 102.1 kg
--- OUTSIDE RECORDS SUMMARY | 2019-04-29 13:35 | XMS REPORT | CCD ---
Author Author Verona Olivares Organization Verona Olivares MD, [facility] Address [address] [place] [address] Phone Care Team Providers Care Bell Ringer Name Role Phone Verona Olivares PP Unavailable CCM Unavailable Summary Purpose Interface Exchange Insurance Providers Payer name Policy type / Coverage type Covered libertarian ID Effective Begin Date Effective End Date [facility] [id number] Unknown Family history Mother Diagnosis Age At [...] Currently employed 10/27/[address]: 804874934 Never smoker 10/27/[address]: 966057784 Never drinks alcohol 10/27/2011 Has the patient [...] F33.1 Active 05/11/2018 Unknown Other acute sinusitis ICD- 9: 461.8 ICD-10: J01.80 Active 02/05/2019 Unknown Other [...] ICD-10: F33.1 05/11/2018 Active Other acute sinusitis ICD- 9: 461.8 ICD-10: J01.80 02/05/2019 Active Other allergic [...] Date Stop Date Status Fill Instructions lisinopril 40 mg tablet RxNorm: 360818 1 Tablet(s) PO daily 04/24/2019 07/16/2020 Active lisinopril 20 mg tablet RxNorm: 064925 1 Tablet(s) PO daily 03/01/2019 04/23/2019 Inactive amoxicillin 500 mg capsule RxNorm: 320574 1 Capsule(s) PO TID 02/05/2019 02/14/2019 Inactive escitalopram 20 mg tablet RxNorm: 566804 1 Tablet(s) PO QPM 01/26/2019 05/25/2019 Active alprazolam 0.5 mg tablet RxNorm: 446483 Tablet(s) TAKE ONE-HALF TO ONE TABLET BY MOUTH EVERY 8 HOURS NEEDED 01/16/2019 01/30/2019 Inactive prednisone 20 mg tablet RxNorm: 289606 2 Tablet(s) PO daily 12/11/2018 12/10/2018 Inactive Augmentin 875 mg-125 mg tablet RxNorm: 074449 1 Tablet(s) PO BID 12/11/2018 12/17/2018 Inactive Augmentin 875 mg-125 mg tablet RxNorm: 102254 1 Tablet(s) PO BID 12/11/2018 12/10/2018 Inactive prednisone 20 mg tablet RxNorm: 478485 2 Tablet(s) PO daily 12/11/2018 12/13/2018 Inactive promethazine 6.25 mg-codeine 10 mg/5 mL syrup RxNorm: 482185 5-10 Milliliter(s) PO Q6 PRN 11/24/2018 No Stop Date Active Zithromax Z-Tomás 250 mg tablet RxNorm: 439771 1 Tablet(s) PO UD 11/24/2018 11/28/2018 Inactive Kenalog 40 mg/mL suspension for injection RxNorm: 8445865 Milliliter(s) Inj 11/24/2018 11/24/2018 Inactive lisinopril 10 mg tablet RxNorm: 242988 1 Tablet(s) PO daily 11/14/2018 02/28/2019 Inactive doxepin 10 mg capsule RxNorm: 8811614 1 Capsule(s) PO QHS as needed insomnia 10/31/2018 01/28/2019 Inactive Kenalog 40 mg/mL suspension for injection RxNorm: 5452132 Milliliter(s) Inj 09/26/2018 09/26/2018 Inactive Augmentin 875 mg-125 mg tablet RxNorm: 752059 1 Tablet(s) PO BID 09/26/2018 10/05/2018 Inactive escitalopram 20 mg tablet RxNorm: 968580 1 Tablet(s) PO QPM 06/27/2018 01/22/2019 Inactive lisinopril 10 mg tablet RxNorm: 636949 1 Tablet(s) PO daily 06/21/2018 11/13/2018 Inactive escitalopram 10 mg tablet RxNorm: 107525 1 Tablet(s) PO QPM 05/11/2018 06/26/2018 Inactive lisinopril 10 mg tablet RxNorm: 908274 1 Tablet(s) PO daily 05/11/2018 06/20/2018 Inactive alprazolam 0.5 mg tablet RxNorm: 405914 TAKE ONE-HALF TO ONE TABLET BY MOUTH EVERY 6 HOURS NEEDED 09/20/2017 01/28/2019 Inactive Augmentin 875 mg-125 mg tablet RxNorm: 206710 1 Tablet(s) PO BID 03/08/2017 03/17/2017 Inactive alprazolam 0.5 mg tablet RxNorm: 683830 Tablet(s) PO Q6 as needed TAKE ONE-HALF TO ONE TABLET BY MOUTH EVERY 6 HOURS NEEDED 12/24/2016 01/22/2017 Inactive triamcinolone acetonide 0.5 % topical cream RxNorm: 4984619 1 Application TOP BID 09/06/2016 09/15/2016 Inactive Levaquin 500 mg tablet RxNorm: 211150 1 Tablet(s) PO daily 07/08/2016 07/14/2016 Inactive please call her when ready Levaquin 500 mg tablet RxNorm: 738618 1 Tablet(s) PO daily 07/08/2016 07/07/2016 Inactive alprazolam 0.5 mg tablet RxNorm: 199508 Tablet(s) PO Q6 as needed TAKE ONE-HALF TO ONE TABLET BY MOUTH EVERY 6 HOURS NEEDED 04/26/2016 12/23/2016 Inactive Generic For:*XANAX 0.5 MG TABLET 05/16/2013 1:18:18 PM (Appended: Controlled substance eRx refill - RxReferenceNumber: [id number]) alprazolam 0.5 mg tablet RxNorm: 178757 Tablet(s) PO Q6 as needed TAKE ONE-HALF TO ONE TABLET BY MOUTH EVERY 6 HOURS NEEDED 04/26/2016 09/19/2017 Inactive Generic For:*XANAX 0.5 MG TABLET 05/16/2013 1:18:18 PM (Appended: Controlled substance eRx refill - RxReferenceNumber: [id number]) betamethasone dipropionate 0.05 % topical cream RxNorm: 019998 1 TOP UD 1-2 x per day PRN 01/16/2016 No Stop Date Active Kenalog 40 mg/mL suspension for injection RxNorm: 8879993 Milliliter(s) Inj 01/14/2016 01/14/2016 Inactive prednisone 20 mg tablet RxNorm: 256090 2 Tablet(s) PO daily 01/14/2016 01/18/2016 Inactive alprazolam 0.5 mg tablet RxNorm: 734353 Tablet(s) PO Q6 as needed TAKE ONE-HALF TO ONE TABLET BY MOUTH EVERY 6 HOURS NEEDED 09/26/2015 04/25/2016 Inactive Generic For:*XANAX 0.5 MG TABLET 05/16/2013 1:18:18 PM (Appended: Controlled substance eRx refill - RxReferenceNumber: [id number]) azithromycin 250 mg tablet RxNorm: 409301 1 Tablet(s) PO UD 2 pills day one and 1 pill day 2-5 08/29/2015 09/02/2015 Inactive Keflex 500 mg capsule RxNorm: 603706 1 Capsule(s) PO TID 02/03/2015 02/09/2015 Inactive take a probiotic while on the abt Keflex 500 mg capsule RxNorm: 458099 1 Capsule(s) PO TID 02/03/2015 02/02/2015 Inactive take a probiotic while on the abt hydrocodone 5 mg-acetaminophen 325 mg tablet RxNorm: 039555 1 Tablet(s) PO Q6 PRN 01/27/2015 08/16/2015 Inactive Kenalog 40 mg/mL suspension for injection RxNorm: 1287725 2 Milliliter(s) Inj 05/02/2014 05/02/2014 Inactive Zithromax Z-Tomás 250 mg tablet RxNorm: 209371 1 Tablet(s) PO QPM 05/02/2014 05/06/2014 Inactive Rocephin 500 mg solution for injection RxNorm: 339350 1 Milliliter(s) Inj 05/02/2014 05/02/2014 Inactive metoprolol tartrate 25 mg tablet RxNorm: 280966 1/2 Tablet(s) PO BID TAKE ONE-HALF TABLET BY MOUTH TWICE DAILY 11/05/2013 02/03/2014 Inactive vilazodone 40 mg tablet RxNorm: 6225348 1 Tablet(s) PO daily 08/09/2013 02/03/2014 Inactive Zithromax Z-Tomás 250 mg tablet RxNorm: 358003 Tablet(s) PO 07/17/2013 11/04/2013 Inactive Rocephin 500 mg Solution for Injection RxNorm: 7455776 Inj 07/17/2013 07/17/2013 Inactive Kenalog 40 mg/mL Susp for Injection RxNorm: 7853070 1 Milliliter(s) Inj 06/07/2013 06/07/2013 Inactive alprazolam 0.5 mg tablet RxNorm: 571285 1/2-1 Tablet(s) PO Q6 PRN 05/17/2013 No Stop Date Active alprazolam 0.5 mg tablet RxNorm: 689969 Tablet(s) PO TAKE ONE-HALF TO ONE TABLET BY MOUTH EVERY 6 HOURS NEEDED 05/17/2013 09/25/2015 Inactive Generic For:*XANAX 0.5 MG TABLET 05/16/2013 1:18:18 PM (Appended: Controlled substance eRx refill - RxReferenceNumber: [id number]) metoprolol tartrate 25 mg tablet RxNorm: 256562 Tablet(s) PO TAKE ONE-HALF TABLET BY MOUTH TWICE DAILY 02/12/2013 11/04/2013 Inactive metoprolol tartrate 25 mg tablet RxNorm: 850321 1/2 Tablet(s) PO BID 01/29/2013 02/28/2019 Inactive alprazolam 0.5 mg tablet RxNorm: 815785 1/2-1 Tablet(s) PO Q6 PRN 11/28/2012 05/17/2013 Inactive lisinopril 10 mg tablet RxNorm: 746779 1 Tablet(s) PO daily 10/30/2012 01/28/2013 Inactive vilazodone 40 mg tablet RxNorm: 0371885 1 Tablet(s) PO daily 08/08/2012 02/03/2013 Inactive metoprolol tartrate 25 mg tablet RxNorm: 635916 1/2 Tablet(s) PO BID 06/07/2012 10/04/2012 Inactive amoxicillin-potassium clavulanate 500 mg-125 mg tablet RxNorm: 408332 1 Tablet(s) PO TID 06/07/2012 06/13/2012 Inactive Ambien 5 mg tablet RxNorm: 138159 1 Tablet(s) PO HS PRN 05/02/2012 05/31/2012 Inactive lisinopril 10 mg tablet RxNorm: 093868 1 Tablet(s) PO daily 11/09/2011 06/05/2012 Inactive pramipexole 0.5 mg Tab RxNorm: 416647 1/2 Tablet(s) PO QHS 11/01/2011 01/29/2012 Inactive pramipexole 0.5 mg Tab RxNorm: 553128 1 Tablet(s) PO QHS 10/27/2011 10/31/2011 Inactive Fish Oil 1,200 mg-144 mg-216 mg Cap RxNorm: 1 Capsule(s) PO daily No Start Date Active potassium 99 mg Tab RxNorm: 1 Tablet(s) PO daily No Start Date 10/29/2012 Inactive betamethasone dipropionate 0.05 % topical cream RxNorm: 162442 1 TOP UD 1-2 x per day PRN No Start Date 01/15/2016 Inactive alprazolam 0.5 mg tablet RxNorm: 048241 1/2-1 Tablet(s) PO Q6 PRN No Start Date 11/27/2012 Inactive Ambien 5 mg tablet RxNorm: 207662 1 Tablet(s) PO HS PRN No Start Date 05/01/2012 Inactive calcium & magnesium carbonates 311 mg-232 mg Tab RxNorm: 181017 1 Tablet(s) PO BID No Start Date 10/29/2012 Inactive multivitamin Tab RxNorm: 1 Tablet(s) PO daily No Start Date 10/29/2012 Inactive vilazodone 40 mg tablet RxNorm: 4089264 1 Tablet(s) PO daily No Start Date 08/07/2012 Inactive Zithromax Z-Tomás 250 mg tablet RxNorm: 381370 Tablet(s) PO No Start Date 07/16/2013 Inactive Medication Administered Medication Codes Instructions Start Date Status Kenalog 40 mg/mL suspension for injection RxNorm: 1832155 Milliliter 11/24/2018 No longer Active Kenalog 40 mg/mL suspension for injection RxNorm: 0488765 Milliliter 09/26/2018 No longer Active Kenalog 40 mg/mL suspension for injection RxNorm: 9695523 Milliliter 01/14/2016 No longer Active Kenalog 40 mg/mL suspension for injection RxNorm: 3086866 2Milliliter 05/02/2014 No longer Active Rocephin 500 mg solution for injection RxNorm: 565931 1Milliliter 05/02/2014 No longer Active Rocephin 500 mg Solution for Injection RxNorm: 2126996 07/17/2013 No longer Active Kenalog 40 mg/mL Susp for Injection RxNorm: 7506999 1Mliter 06/07/2013 No longer Active Immunizations Vaccine Codes Date Status Influenza CVX: 141 06/27/2018 completed Influenza CVX: 141 07/30/2016 completed Influenza CVX: 141 07/23/2015 completed Influenza CVX: 141 07/26/2013 completed Assessments Condition Codes Effective Dates Essential (primary) hypertension ICD-10: I10 ICD-9: 401.1 04/24/2019 Major depressive disorder, recurrent, moderate ICD-10: F33.1 [...] NEC ICD-9: 311 11/05/2013 ESSENTIAL HYPERTENSION SNOMED: 56382865 ICD-9: 401.9 11/05/2013 ACUTE BRONCHITIS ICD-9: 466.0 07/17/2013 COUGH ICD-9: 786.2 06/07/2013 OBESITY ICD-9: 278.00 10/30/2012 HYPERLIPIDEMIA ICD-9: 272.4 07/12/2012 Palpitations ICD-9: 785.1 06/07/2012 Changing mole ICD-9: 216.9 11/09/2011 Restless leg syndrome ICD-9: 333.94 10/27/2011 Reason For Visit Reason For Visit Effective Dates Notes hypertension 04/24/2019 hypertension 03/01/2019 sinus congestion 02/05/2019 sinus congestion [...] Item Item Code Result Date Influenza A+B Tmg336 Influ A+B Negative 07/08/2016 Cbc With Differential [...] 29.7 pg 07/08/2016 Cbc With Differential Ord2 [place]% 6.8 % 07/08/2016 Cbc With Differential Ord2 [...] 1.19 K/ul 07/08/2016 Cbc With Differential Ord2 [place] ABS# 1.1 K/ul 07/08/2016 Cbc With Differential Ord2 Eos ABS# 0.0 K/ul 07/08/2016 Cbc With Differential Ord2 Baso ABS# 0.0 K/ul 07/08/2016 Comp Metabolic Vww977 NA 134 mEq/L 07/08/2016 Comp Metabolic Fwx752 K 3.9 mEq/L 07/08/2016 Comp Metabolic Oqj190 CL 101 mEq/L 07/08/2016 Comp Metabolic Qeh029 CO2 27.0 mEq/L 07/08/2016 Comp Metabolic Zea880 ANION GAP 10 07/08/2016 Comp Metabolic Olx680 GLUCOSE 120 mg/dL 07/08/2016 Comp Metabolic Ykl953 Creat 0.9 mg/dL 07/08/2016 Comp Metabolic Zse987 eGFR 71 ml/min/1.73m2 07/08/2016 Comp Metabolic Ayz669 BUN 16 mg/dL 07/08/2016 Comp Metabolic Hxk298 B/C Ratio 18.4 Ratio 07/08/2016 Comp Metabolic Llm109 CALCIUM 10.0 mg/dL 07/08/2016 Comp Metabolic Wnd333 ALK PHOS 57 U/L 07/08/2016 Comp Metabolic Pxp001 AST(SGOT) 21 U/L 07/08/2016 Comp Metabolic Ewt888 ALT(SGPT) 20 U/L 07/08/2016 Comp Metabolic Oci461 BILI T 1.1 mg/dL 07/08/2016 Comp Metabolic Knm807 ALBUMIN 3.9 g/dL 07/08/2016 Comp Metabolic Nul567 TPRO 6.2 g/dL 07/08/2016 Comp Metabolic Elm076 GLOB 2.4 g/dL 07/08/2016 Comp Metabolic Ena042 A/G Ratio 1.6 Ratio 07/08/2016 Comp Metabolic Tni205 Osmo 271 mOsmo 07/08/2016 Comp Metabolic Jao052 NA 130 mEq/L 08/29/2015 Comp Metabolic Yef678 K 4.0 mEq/L 08/29/2015 Comp Metabolic Opt174 CL 99 mEq/L 08/29/2015 Comp Metabolic Pji257 CO2 21.0 mEq/L 08/29/2015 Comp Metabolic Drs783 ANION GAP 14 08/29/2015 Comp Metabolic Keq595 GLUCOSE 105 mg/dL 08/29/2015 Comp Metabolic Uam738 Creat 1.0 mg/dL 08/29/2015 Comp Metabolic Nzw233 eGFR 62 ml/min/1.73m2 08/29/2015 Comp Metabolic Xvp989 BUN 8 mg/dL 08/29/2015 Comp Metabolic Oao026 B/C Ratio 8.2 Ratio 08/29/2015 Comp Metabolic Jpx787 CALCIUM 9.9 mg/dL 08/29/2015 Comp Metabolic Cot147 ALK PHOS 93 U/L 08/29/2015 Comp Metabolic Qbt814 AST(SGOT) 16 U/L 08/29/2015 Comp Metabolic Miu721 ALT(SGPT) 22 U/L 08/29/2015 Comp Metabolic Fww403 BILI T 0.6 mg/dL 08/29/2015 Comp Metabolic Kbi905 ALBUMIN 4.3 g/dL 08/29/2015 Comp Metabolic Vxr208 TPRO 6.7 g/dL 08/29/2015 Comp Metabolic Uoo827 GLOB 2.4 g/dL 08/29/2015 Comp Metabolic Fuy423 A/G Ratio 1.8 Ratio 08/29/2015 Comp Metabolic Lps180 Osmo 259 mOsmo 08/29/2015 Cbc With Differential [...] Systems System Result Effective Dates Constitutional No anorexia 04/24/2019 Constitutional No recent illness 04/24/2019 Constitutional No night sweats 04/24/2019 Ears/Nose/Throat/Neck No dizziness 04/24/2019 Ears/Nose/Throat/Neck headache 04/24/2019 Cardiovascular No chest pain/pressure 04/24/2019 Cardiovascular No dyspnea 04/24/2019 Cardiovascular No edema 04/24/2019 Cardiovascular hypertension 04/24/2019 Dermatologic No rash 04/24/2019 Neurologic No alteration of consciousness 04/24/2019 Constitutional No recent illness 03/01/2019 Constitutional No anorexia 03/01/2019 Constitutional No night sweats 03/01/2019 Constitutional No chills 03/01/2019 Constitutional No diaphoresis 03/01/2019 Constitutional fatigue 03/01/2019 Constitutional No fever 03/01/2019 Constitutional insomnia 03/01/2019 Eyes No eye discharge 03/01/2019 Eyes No eye erythema 03/01/2019 Ears/Nose/Throat/Neck No dizziness 03/01/2019 Ears/Nose/Throat/Neck No headache 03/01/2019 Cardiovascular fatigue 03/01/2019 Cardiovascular hypertension 03/01/2019 Respiratory No productive sputum 03/01/2019 Respiratory No chest congestion 03/01/2019 Respiratory No cough 03/01/2019 Gastrointestinal No abdominal pain 03/01/2019 Gastrointestinal No constipation 03/01/2019 Gastrointestinal No diarrhea 03/01/2019 Gastrointestinal No nausea 03/01/2019 Gastrointestinal No vomiting 03/01/2019 Musculoskeletal No joint complaint 03/01/2019 Psychiatric No anxiety 03/01/2019 Psychiatric No depression 03/01/2019 Neurologic No ataxia 03/01/2019 Dermatologic No rash 03/01/2019 Dermatologic No sores 03/01/2019 Constitutional recent illness 02/05/2019 Constitutional No chills 02/05/2019 Constitutional No diaphoresis 02/05/2019 Constitutional No fever 02/05/2019 Eyes No eye erythema 02/05/2019 Ears/Nose/Throat/Neck nasal allergies 02/05/2019 Ears/Nose/Throat/Neck nasal discharge 02/05/2019 Ears/Nose/Throat/Neck postnasal drip 02/05/2019 Ears/Nose/Throat/Neck sinus congestion 02/05/2019 Ears/Nose/Throat/Neck No sore throat 02/05/2019 Cardiovascular No chest pain/pressure 02/05/2019 Cardiovascular No dyspnea 02/05/2019 Respiratory No chest congestion 02/05/2019 Respiratory cough 02/05/2019 Respiratory No dyspnea 02/05/2019 Gastrointestinal No abdominal pain 02/05/2019 Gastrointestinal No constipation 02/05/2019 Gastrointestinal No diarrhea 02/05/2019 Gastrointestinal No nausea 02/05/2019 Gastrointestinal No vomiting 02/05/2019 Dermatologic No rash 02/05/2019 Neurologic No alteration of consciousness 02/05/2019 Neurologic No mental status change 02/05/2019 Constitutional recent illness 11/24/2018 Constitutional No anorexia [...] 1994 Constitutional general appearance Overall: well developed 04/24/2019 None Full Exam - General 1994 Constitutional general appearance Overall: in no acute distress 04/24/2019 None Full Exam - General 1994 Constitutional general appearance Overall: well nourished 04/24/2019 None Full Exam - General 1994 Respiratory auscultation Overall: breath sounds clear bilaterally 04/24/2019 None Full Exam - General 1994 Respiratory respiratory effort/rhythm Overall: no retractions 04/24/2019 None Full Exam - General 1994 Respiratory respiratory effort/rhythm Overall: normal rate 04/24/2019 None Full Exam - General 1994 Cardiovascular auscultation of heart Overall: regular rate 04/24/2019 None Full Exam - General 1994 Cardiovascular auscultation of heart Overall: normal heart sounds 04/24/2019 None Full Exam - General 1994 Psychiatric orientation/consciousness Overall: oriented to person, place and time 04/24/2019 None Full Exam - General 1994 Constitutional [...] otoscopic exam Left tympanic membrane: air-fluid level 02/05/2019 None Full Exam - ENT Ears/Nose/Throat otoscopic exam Right tympanic membrane: air-fluid level 02/05/2019 None Full Exam - ENT Ears/Nose/Throat nasal mucosa, septum, turbinates Drainage: clear 02/05/2019 None Full Exam - ENT Ears/Nose/Throat nasal mucosa, septum, turbinates Drainage: yellow 02/05/2019 None Full Exam - ENT Ears/Nose/Throat lips/teeth/gingiva Overall: benign lips 02/05/2019 None Full Exam [...] - ENT Respiratory inspection Overall: normal rate 02/05/2019 None Full Exam - ENT Respiratory auscultation [...] CPT-4: J3301 09/26/2018 THER/PROPH/DIAG INJ SC/IM CPT-4: 59718 09/26/2018 IMMUNIZATION ADMIN CPT- 4: 04874 06/27/2018 FLU VAC NO PRSV 4 RAHUL 3 YRS+ Formatting Model/CDA Sections, Assigned to/Zonia Martinez CPT-4: [id number] 06/27/2018 IMMUNIZATION ADMIN CPT- 4: 36826 07/30/2016 IIV4 FLU VACC NO PRESERV ID SNOMED CT: 62940932 CPT-4: 25708 07/30/2016 TRIAMCINOLONE ACET INJ NOS CPT-4: J3301 01/14/2016 IMMUNIZATION ADMIN CPT- 4: 82692 07/23/2015 IMMUNIZATION ADMIN EACH ADD CPT-4: 41054 07/23/2015 FLU VACC 4 RAHUL 3 YRS PLUS IM Formatting Model/CDA Sections, Assigned to SNOMED CT: 84227722 CPT-4: 48781Xnipzfg 07/23/2015 THER/PROPH/DIAG INJ SC/IM CPT-4: 69312 05/02/2014 ROCEPHIN, PER 250 MG CPT- 4: J0696 05/02/2014 TRIAMCINOLONE ACET INJ NOS CPT-4: J3301 05/02/2014 ROCEPHIN, PER 250 MG CPT- 4: J0696 07/17/2013 TRIAMCINOLONE ACET INJ NOS CPT-4: J3301 06/07/2013 BIOPSY SKIN LESION CPT- 4: 18422 11/09/2011 Vital Signs Date Vital 04/24/2019 Blood Pressure 1: 146/88 Code: 8480-6 Heart Rate 1: 59 bpm SpO2: 97% 04/23/2019 Blood Pressure 1: 142/88 Code: 8480-6 Heart Rate 1: 63 bpm SpO2: 98% 03/01/2019 Blood Pressure 1: 140/70 Code: 8480-6 BMI: 34.4 Code: 05577-9 Heart Rate 1: 73 bpm Height: 5'8" SpO2: 96% Weight: 226 lbs 02/05/2019 Blood Pressure 1: 146/88 Code: 8480-6 BMI: 34.4 Code: 61600-6 Heart Rate 1: 65 bpm Height: 5'8" SpO2: 98% Weight: 226 lbs 11/24/2018 Blood Pressure 1: 122/70 Code: 8480-6 BMI: 32.7 Code: 42129-9 Heart Rate 1: 85 bpm Height: 5'8" SpO2: 98% Temperature: 36.6 (C) / 97.9 (F) Weight: 215 lbs 10/31/2018 Blood Pressure 1: 126/78 Code: 8480-6 BMI: 32.7 Code: 43703-6 Heart Rate 1: 75 bpm Height: 5'8" SpO2: 97% Weight: 215 lbs 09/26/2018 Blood Pressure 1: 130/78 Code: 8480-6 BMI: 32.4 Code: 87856-4 Heart Rate 1: 67 bpm Height: 5'8" SpO2: 97% Temperature: 36.5 (C) / 97.7 (F) Weight: 213 lbs 06/27/2018 Blood Pressure 1: 132/78 Code: 8480-6 BMI: 33.9 Code: 26353-6 Heart Rate 1: 66 bpm Height: 5'8" SpO2: 95% Weight: 223 lbs 05/11/2018 Blood Pressure 1: 140/90 Code: 8480-6 BMI: 33.8 Code: 52500-9 Heart Rate 1: 74 bpm Height: 5'8" SpO2: 98% Weight: 222 lbs 03/08/2017 Blood Pressure 1: 144/86 Code: 8480-6 BMI: 31.2 Code: 76773-9 Heart Rate 1: 70 bpm Height: 5'8" SpO2: 98% Weight: 205 lbs 09/06/2016 Blood Pressure 1: 128/86 Code: 8480-6 BMI: 28.4 Code: 83399-1 Heart Rate 1: 86 bpm Height: 5'8" SpO2: 96% Weight: 187 lbs 07/08/2016 Blood Pressure 1: 120/60 Code: 8480-6 BMI: 28.4 Code: 34232-8 Height: 5'8" Temperature: 37.8 (C) / 100.1 (F) Weight: 187 lbs 01/14/2016 Blood Pressure 1: 152/86 Code: 8480-6 BMI: 30.4 Code: 52561-2 Heart Rate 1: 83 bpm Height: 5'8" SpO2: 97% Weight: 200 lbs 11/17/2015 Blood Pressure 1: 142/90 Code: 8480-6 BMI: 33.9 Code: 27043-5 Heart Rate 1: 75 bpm Height: 5'8" SpO2: 97% Weight: 223 lbs 08/29/2015 BMI: 35.6 Code: 07532-9 Heart Rate 1: 94 bpm Height: 5'8" SpO2: 98% Weight: 234 lbs 01/27/2015 Blood Pressure 1: 140/94 Code: 8480-6 Heart Rate 1: 88 bpm Height: 5'8" SpO2: 98% Weight: 08/05/2014 Blood Pressure 1: 138/82 Code: 8480-6 BMI: 33.6 Code: 68390-0 Heart Rate 1: 76 bpm Height: 5'8" Weight: 221 lbs 05/02/2014 Blood Pressure 1: 142/82 Code: 8480-6 Heart Rate 1: 84 bpm Height: SpO2: 100% Temperature: 37.1 (C) / 98.7 (F) Weight: 02/04/2014 Blood Pressure 1: 108/78 Code: 8480-6 BMI: 36.2 Code: 84683-9 Heart Rate 1: 60 bpm Height: 5'8" Weight: 238 lbs 11/05/2013 Blood Pressure 1: 134/74 Code: 8480-6 BMI: 35.9 Code: 59442-8 Heart Rate 1: 68 bpm Height: 5'8" Weight: 236 lbs 07/17/2013 Blood Pressure 1: 136/88 Code: 8480-6 BMI: 35.9 Code: 63212-1 Heart Rate 1: 72 bpm Height: 5'8" Temperature: 36.4 (C) / 97.6 (F) Weight: 236 lbs 06/07/2013 Blood Pressure 1: 134/92 Code: 8480-6 Heart Rate 1: 72 bpm Temperature: 37.0 (C) / 98.6 (F) Weight: 04/30/2013 Blood Pressure 1: 148/78 Code: 8480-6 BMI: 35.1 Code: 87578-6 Heart Rate 1: 64 bpm Height: 5'8" Weight: 231 lbs 01/29/2013 Blood Pressure 1: 128/84 Code: 8480-6 BMI: 34.4 Code: 95064-7 Heart Rate 1: 76 bpm Height: 5'8" Weight: 226 lbs 10/30/2012 Blood Pressure 1: 118/72 Code: 8480-6 BMI: 33.5 Code: 11004-7 Heart Rate 1: 64 bpm Height: 5'8" Weight: 220 lbs 07/12/2012 Blood Pressure 1: 134/88 Code: 8480-6 Heart Rate 1: 64 bpm Weight: 214 lbs 06/07/2012 Blood Pressure 1: 152/92 Code: 8480-6 Heart Rate 1: 68 bpm Respiratory Rate: 16 bpm Temperature: 36.7 (C) / 98.0 (F) Weight: 209 lbs 12/01/2011 Blood Pressure 1: 140/82 Code: 8480-6 BMI: 29.5 Code: 65497-7 Heart Rate 1: 72 bpm Height: 5'8" [...] 1: 144/90 Code: 8480-6 BMI: 29.3 Code: 66102-5 Heart Rate 1: 76 bpm Height: 5'8" Respiratory Rate: 16 bpm Weight: 193 lbs Functional Status No Functional Status data History of Present Illness Symptom Name Status Result Effective Date Notes Quality primary hypertension 04/24/2019 None Quality chronic 04/24/2019 None Onset and Resolution ongoing 04/24/2019 None Onset of Symptom during adulthood 04/24/2019 None Blood Pressure Values patient checking blood pressure at home - did not bring in readings 04/24/2019 None Alleviating Factors medication 04/24/2019 None Frequency of Episodes increasing 04/24/2019 None Severity not consistently severe symptoms, the symptoms fluctuate from no symptoms to anxiety and headaches 04/24/2019 None Triggers no known associated factors 04/24/2019 None Quality intermittent 03/01/2019 None Onset and Resolution ongoing 03/01/2019 None Onset of Symptom _ years ago 03/01/2019 None Blood Pressure Values patient checking blood pressure at home - did not bring in readings 03/01/2019 None Pertinent Findings anxiety 03/01/2019 None Pertinent Findings Denies dizziness 03/01/2019 None Pertinent Findings Denies dyspnea 03/01/2019 with anxiety attacks Location in the throat 03/01/2019 None Quality dry 03/01/2019 None Onset and Resolution ongoing 03/01/2019 None Frequency of Episodes daily 03/01/2019 None Timing of Episodes at night 03/01/2019 None Pertinent Findings Denies chest discomfort 03/01/2019 None Pertinent Findings Denies dyspnea 03/01/2019 None Location frontal sinuses 02/05/2019 None Quality constant 02/05/2019 None Quality fullness 02/05/2019 None Quality pressure 02/05/2019 None Location in the throat 02/05/2019 None Quality dry 02/05/2019 None Quality interrupts sleep 02/05/2019 None Onset and Resolution sudden in onset 02/05/2019 None Onset of Symptom 2 weeks ago 02/05/2019 None Frequency of Episodes daily 02/05/2019 None Location both ears 02/05/2019 None Location diffusely 02/05/2019 None Quality aching 02/05/2019 None Quality scratchy 02/05/2019 None Onset and Resolution sudden in [...] Codes Date EST. PATIENT, LEVEL III Diagnosis: Essential (primary) hypertension[ICD10: I10] [facility] CPT-4: 27937 04/24/2019 ([id number]) Miscellaneous no charge Diagnosis: Essential (primary) hypertension[ICD10: I10] [facility] CPT-4: 47926 04/23/2019 ([id number]) 48157 EST. PATIENT, LEVEL III Diagnosis: Essential (primary) hypertension[ICD10: I10] Diagnosis: Major depressive disorder, recurrent, moderate[ICD10: F33.1] Verona Olivares MD, [facility] CPT-4: 48863 03/01/2019 [id number] EST. PATIENT, LEVEL IV Diagnosis: Other acute sinusitis[ICD10: J01.80] Diagnosis: Other allergic rhinitis[ICD10: J30.89] Solange Olivares MD, [facility] CPT- 4: 03175 02/05/2019 ([id number]) 07444 EST. PATIENT, LEVEL III Diagnosis: Cough[ICD10: R05] Diagnosis: Acute upper respiratory infection, unspecified[ICD10: J06.9] Che Olivares MD, [facility] CPT-4: 54851 11/24/2018 ([id number]) 42467 EST. PATIENT, LEVEL III Diagnosis: Essential (primary) hypertension[ICD10: I10] Diagnosis: Major depressive disorder, recurrent, moderate[ICD10: F33.1] Diagnosis: Other insomnia[ICD10: G47.09] Verona Olivares MD, [facility] CPT-4: 67444 10/31/2018 71959 EST. PATIENT, LEVEL III Diagnosis: Acute laryngopharyngitis[ICD10: J06.0] Diagnosis: Other allergic rhinitis[ICD10: J30.89] Solange Olivares MD, [facility] CPT- 4: 79306 09/26/2018 ([id number]) 19347 EST. PATIENT, LEVEL III Diagnosis: Essential (primary) hypertension[ICD10: I10] Diagnosis: Major depressive disorder, recurrent, moderate[ICD10: F33.1] Diagnosis: Generalized anxiety disorder[ICD10: F41.1] Diagnosis: Encounter for immunization[ICD10: Z23] Verona Olivares MD, [facility] CPT-4: 41448 06/27/2018 ([id number]) 42569 EST. PATIENT, LEVEL IV Diagnosis: Essential (primary) hypertension[ICD10: I10] Diagnosis: Major depressive disorder, recurrent, moderate[ICD10: F33.1] Diagnosis: Generalized anxiety disorder[ICD10: F41.1] Verona Olivares MD, [facility] CPT-4: 90460 05/11/2018 ([id number]) 85926 EST. PATIENT, LEVEL III Diagnosis: Acute recurrent maxillary sinusitis[ICD10: J01.01] Diagnosis: Other hallucinations[ICD10: R44.2] Diagnosis: Allergic rhinitis due to pollen[ICD10: J30.1] Che Olivares MD, [facility] CPT-4: 35720 03/08/2017 ([id number]) 56603 EST. PATIENT, LEVEL II Diagnosis: Cellulitis of right upper limb[ICD10: L03.113] Che Olivares MD, [facility] CPT-4: 14992 09/06/2016 ([id number]) 44023 EST. PATIENT, LEVEL III Diagnosis: Cough[ICD10: R05] Diagnosis: Fever, unspecified[ICD10: R50.9] Diagnosis: Pain, unspecified[ICD10: R52] Che Olivares MD, [facility] CPT-4: 21344 07/08/2016 73262 EST. PATIENT, LEVEL IV Diagnosis: Rash and other nonspecific skin eruption[ICD10: R21] Solange Olivares MD, [facility] CPT-4: 65453 01/14/2016 ([id number]) 24762 EST. PATIENT, LEVEL III Diagnosis: Pain in left shoulder[ICD10: M25.512] Diagnosis: Pain in right shoulder[ICD10: M25.511] Diagnosis: Bicipital tendinitis, left shoulder[ICD10: M75.22] Che Olivares MD, [facility] CPT-4: 26957 11/17/2015 11551 EST. PATIENT, LEVEL IV Diagnosis: Epigastric pain[ICD10: R10.13] Diagnosis: Acute upper respiratory infection, unspecified[ICD10: J06.9] Solange Olivares MD, [facility] CPT-4: 24762 08/29/2015 ([id number]) 13564 EST. PATIENT, LEVEL III Diagnosis: Left knee pain[ICD9: 719.46] Diagnosis: ACUTE URI[ICD9: 465.9] Diagnosis: ALLERGIC RHINITIS[ICD9: 477.9] Che Olivares MD, [facility] CPT-4: 83546 01/27/2015 ([id number]) 77629 EST. PATIENT, LEVEL III Diagnosis: Elevated blood pressure (not hypertension)[ICD9: 796.2] Diagnosis: Biceps tendinitis[ICD9: 726.12] Diagnosis: Wrist pain, acute[ICD9: 719.43] Verona Olivares MD, [facility] CPT-4: 45889 08/05/2014 ([id number]) 77198 EST. PATIENT, LEVEL III Diagnosis: Acute maxillary sinusitis[ICD9: 461.0] Verona Olivares MD [facility] CPT-4: 99404 05/02/2014 ([id number]) 32889 EST. PATIENT, LEVEL III Diagnosis: INSOMNIA IN OTHER DIS[ICD9: 327.01] Verona Olivares MD, [facility] CPT- 4: 09108 02/04/2014 ([id number]) 96347 EST. PATIENT, LEVEL III Diagnosis: ESSENTIAL HYPERTENSION[SNOMED: 56884898] Diagnosis: DEPRESSIVE DISORDER NEC[ICD9: 311] Verona Olivares MD, [facility] CPT- 4: 62108 11/05/2013 ([id number]) 59870 EST. PATIENT, LEVEL III Diagnosis: ACUTE BRONCHITIS[ICD9: 466.0] Che Olivares MD, [facility] CPT-4: 83621 07/17/2013 ([id number]) 69745 EST. PATIENT, LEVEL III Diagnosis: ACUTE URI[ICD9: 465.9] Diagnosis: COUGH[ICD9: 786.2] Diagnosis: ALLERGIC RHINITIS[ICD9: 477.9] Che Olivares MD, [facility] CPT-4: 49965 06/07/2013 ([id number]) 69503 EST. PATIENT, LEVEL III Diagnosis: ESSENTIAL HYPERTENSION[SNOMED: 62997837] Diagnosis: DEPRESSIVE DISORDER NEC[ICD9: 311] Verona Olivares MD, [facility] CPT- 4: 53827 04/30/2013 ([id number]) 89006 EST. PATIENT, LEVEL III Diagnosis: ESSENTIAL HYPERTENSION[SNOMED: 37423989] Diagnosis: DEPRESSIVE DISORDER NEC[ICD9: 311] Verona Olivares MD, [facility] CPT- 4: 32560 01/29/2013 ([id number]) 12902 EST. PATIENT, LEVEL IV Diagnosis: ESSENTIAL HYPERTENSION[SNOMED: 22731407] Diagnosis: DEPRESSIVE DISORDER NEC[ICD9: 311] Diagnosis: OBESITY[ICD9: 278.00] Verona Olivares MD, [facility] CPT-4: 59009 10/30/2012 ([id number]) 25114 EST. PATIENT, LEVEL III Diagnosis: ESSENTIAL HYPERTENSION[SNOMED: 20110155] Diagnosis: HYPERLIPIDEMIA[ICD9: 272.4] Diagnosis: DEPRESSIVE DISORDER NEC[ICD9: 311] ABDIAS Monroe MD CPT- 4: 22513 07/12/2012 ([id number]) 43111 EST. PATIENT, LEVEL IV Diagnosis: ESSENTIAL HYPERTENSION[SNOMED: 70646635] Diagnosis: DEPRESSIVE DISORDER NEC[ICD9: 311] Diagnosis: Palpitations[ICD9: 785.1] Diagnosis: Acute maxillary sinusitis[ICD9: 461.0] Verona Olivares MD [facility] CPT-4: 70550 06/07/2012 33650 EST. PATIENT, LEVEL IV Diagnosis: ESSENTIAL HYPERTENSION[SNOMED: 95553550] Diagnosis: COUGH[ICD9: 786.2] Diagnosis: Upper respiratory infection[ICD9: 465.9] Verona Olivares MD [facility] CPT-4: 91769 12/01/2011 ([id number]) 56577 EST. PATIENT, LEVEL III Diagnosis: ESSENTIAL HYPERTENSION[SNOMED: 76822953] Verona Olivares MD [facility] CPT-4: 19658 11/18/2011 ([id number]) 34611 EST. PATIENT, LEVEL III Diagnosis: ESSENTIAL HYPERTENSION[SNOMED: 56502185] ABDIAS Monroe MD CPT-4: 72383 11/09/2011 ([id number]) OFFICE VISIT, NEW - LEVEL 4 Diagnosis: Restless leg syndrome[ICD9: 333.94] Diagnosis: INSOMNIA IN OTHER DIS[ICD9: 327.01] Diagnosis: Elevated blood pressure (not hypertension)[ICD9: 796.2] Verona Olivares MD, [facility] CPT-4: 65198 10/27/2011 Plan of Care Planned Activity Notes [...] pt is to call for acute concerns. 04/24/2019 Patient Education: Patient Medication Summary Completed 04/24/2019 Visit Plan: Patient states that it has been a while since she changed the batteries in her monitor. This RN instructed patient to change the batteries and to come back tomorrow for another BP check. If her machine is still inaccurate, then we recommend getting a new BP monitor. If her blood pressure is still elevated tomorrow patient informed that her medication may need to be adjusted. Patient reported that she has been decreasing her caffeine intake. Also informed her to reduce any salt intake. 04/23/2019 Appointment: Nurse Visit 04/23/2019 Patient Education: Patient Medication Summary Completed 04/23/2019 Visit Plan: Hypertension - uncontrolled - the [...] exposure. No change in current medications. 03/01/2019 [facility]ment[phone] ([facility] min) Moderate 03/01/2019 Patient Education: Patient Medication Summary Completed [...] allergy spray. 02/05/2019 Appointment: Solange Snyder WPtel: [phone] [phone] (30 min) Complex 02/05/2019 Patient Education: Patient [...] pharmacy. 11/24/2018 Appointment: Che Garcia WPtel: [phone] [phone] (15 min) Moderate 11/24/2018 Patient Education: Patient [...] medications. 10/31/2018 Appointment: Verona Olivares WPtel: [phone] [facility] (15 min) Moderate 10/31/2018 Patient Education: [...] spray. 09/26/2018 Appointment: Che Garcia WPtel: [phone] [phone] Portal Appointment Requests 09/26/2018 Appointment: Solange Snyder WPtel: [phone] [facility]66[facility] (15 min) Moderate 09/26/2018 Patient Education: Patient [...] nightly 06/27/2018 Appointment: Verona Olivares WPtel: [phone] [facility] (15 min) Moderate 06/27/2018 Patient Education: Patient Medication Summary Completed 06/27/2018 Patient Education: Depression Completed 06/27/2018 Appointment: Verona Olivares WPtel: [phone] [facility] (15 min) Moderate 06/07/2018 Visit Plan: [...] daily. 05/11/2018 Appointment: Verona Olivares WPtel: [phone] [facility] (15 min) Moderate 05/11/2018 Patient Education: [...] not resolve 03/08/2017 Appointment: Che Garcia WPtel: [phone] [phone] [place] (15 min) Moderate 03/08/2017 Patient Education: [...] of plan. 09/06/2016 Appointment: Che Garcia WPtel: [address] [place] [address] (15 min) Moderate 09/06/2016 Patient Education: Patient Medication Summary Completed 09/06/2016 Appointment: Injection 07/30/2016 Patient Education: Patient Medication Summary Completed 07/30/2016 Visit Plan: Jxopd-lmzuf-klef aches-patient sent for stat labs and influenza swab-will treat as indicated-instructed patient we will call her with the results of her testings-tylenol/motrin as needed for fever, increase po fluids. Patient verbalized understanding of plan. 07/08/2016 Appointment: Che Garcia WPtel: [phone] (15 min) Moderate 07/08/2016 Patient Education: Patient [...] completely resolve. 01/27/2015 Appointment: Che Garcia WPtel: [address] [place], [place] [id number] 01/27/2015 Patient Education: Patient Medication Summary [...] blood pressures. 08/05/2014 Appointment: Verona Olivares WPtel: [address] [place], [place] [phone] Follow up 08/05/2014 Patient Education: Patient Medication [...] for sleep. 02/04/2014 Appointment: Verona Olivares WPtel: [address] [place], [place] [phone] Follow up 02/04/2014 Patient Education: Patient Medication [...] the antidepressant. 11/05/2013 Appointment: Verona Olivares WPtel: [address] [place], [place] [phone] Follow up 11/05/2013 Patient Education: Patient Medication Summary Completed 11/05/2013 Patient Education: Hypertension Completed 11/05/2013 Appointment: Verona Olivares WPtel: [address] [place], [place] [phone] Follow up 10/18/2013 Appointment: Verona Olivares WPtel: [address] [place], [place] [phone] Follow up 08/07/2013 Visit Plan: Bronchitis - acute case of bronchitis identified. Pt has been given antibiotics, breathing treatments as appropriate, and pt has been instructed to call if symptoms are not improved, or if symptoms acutely worsen. RX sent to patient's pharmacy. 07/17/2013 Appointment: Che Garcia [facility]el: [phone] S[facility] 07/17/2013 Patient Education: Patient Medication Summary [...] allergy spray. 06/07/2013 Appointment: Che Garcia WPtel: [phone] [phone] [place] [address] 06/07/2013 Patient Education: Patient Medication Summary Completed [...] medications. 04/30/2013 Appointment: Verona [facility] [phone] [facility] Follow up 04/30/2013 Patient Education: Patient [...] current medications. 01/29/2013 Appointment: Verona Olivares WPtel: [facility]5 [facility] Follow up 01/29/2013 Patient Education: Patient [...] exercise options. 10/30/2012 Appointment: Verona Olivares WPtel: [facility]5 [facility] Follow up 10/30/2012 Patient Education: Patient [...] medications. 07/12/2012 Appointment: [phone] [facility] Follow up 07/12/2012 Patient Education: Patient [...] above medications. 06/07/2012 Appointment: Verona Olivares WPtel: [address] [place], [place] [phone] Other 06/07/2012 Patient Education: Patient Medication Summary Completed 06/07/2012 Patient Education: High Blood Pressure: Essential Hypertension Completed 06/07/2012 Appointment: Verona Olivares WPtel: [address] [place] [phone] Other 05/29/2012 Visit Plan: Hypertension - well [...] for cough 12/01/2011 Appointment: Verona Olivares WPtel: [facility]0 [facility] Follow up 12/01/2011 Patient Education: Patient [...] change today. 11/18/2011 Appointment: Verona Olivares WPtel: [facility]7 [phone] Other 11/18/2011 Patient Education: Patient Medication [...] acute conerns. 11/09/2011 Appointment: Verona Olivares WPtel: [phone] [facility] Surgical Procedure 11/09/2011 Patient Education: Patient [...] the diet. 10/27/2011 Appointment: Verona Olivares WPtel: [facility] [place] New Patient 10/27/2011 Patient Education: [...] exposure. No change in current medications. . Hzrim-xudhw-jgwl aches-patient sent for stat labs and influenza [...] ointment. Patient verbalized understanding of plan. . Patient states that it has been a while since she changed the batteries in her monitor. This RN instructed patient to change the batteries and to come back tomorrow for another BP check. If her machine is still inaccurate, then we recommend getting a new BP monitor. If her blood pressure is still elevated tomorrow patient informed that her medication may need to be adjusted. Patient reported that she has been decreasing her caffeine intake. Also informed her to reduce any salt intake. . Bronchitis - acute case of bronchitis [...] this patient. Increase lexapro to 20mg nightly GET A NEW BLOOD PRESSURE MACINE MONITOR BLOOD PRESSURE AND CALL WITH READINGS INCREASE LISINOPRIL TO 40MG DAILY . Hypertension - uncontrolled - the patient's [...] pt is to call for acute concerns. . Hypertension - uncontrolled - the patient's [...] situational exposure. No change in current medications. Pt to use voltaren gel 2 grams [...]
--- OUTSIDE RECORDS SUMMARY | 2019-04-29 13:38 | XMS REPORT | CCD ---
Author Author Verona Olivares Organization Verona Olivares MD, [facility] Address [address] [place] [address] Phone Care Team Providers Care Inbound Sales Advisor Name Role Phone Verona Olivares PP Unavailable CCM Unavailable Summary Purpose Interface Exchange Insurance Providers Payer name Policy type / Coverage type Covered constitution party ID Effective Begin Date Effective End Date [facility] [id number] Unknown Family history Mother Diagnosis Age At [...] Currently employed 10/27/[address]: 102556609 Never smoker 10/27/[address]: 543960042 Never drinks alcohol 10/27/2011 Has the patient [...] Fill Instructions lisinopril 20 mg tablet RxNorm: 524447 1 Tablet(s) PO daily 03/01/2019 05/23/2020 Active amoxicillin 500 mg capsule RxNorm: 571478 1 Capsule(s) PO TID 02/05/2019 02/14/2019 Inactive escitalopram 20 mg tablet RxNorm: 472783 1 Tablet(s) PO QPM 01/26/2019 05/25/2019 Active alprazolam 0.5 mg tablet RxNorm: 694480 Tablet(s) TAKE ONE-HALF TO ONE TABLET BY MOUTH EVERY 8 HOURS NEEDED 01/16/2019 01/30/2019 Inactive prednisone 20 mg tablet RxNorm: 117306 2 Tablet(s) PO daily 12/11/2018 12/10/2018 Inactive Augmentin 875 mg-125 mg tablet RxNorm: 834913 1 Tablet(s) PO BID 12/11/2018 12/17/2018 Inactive Augmentin 875 mg-125 mg tablet RxNorm: 898122 1 Tablet(s) PO BID 12/11/2018 12/10/2018 Inactive prednisone 20 mg tablet RxNorm: 822466 2 Tablet(s) PO daily 12/11/2018 12/13/2018 Inactive promethazine 6.25 mg-codeine 10 mg/5 mL syrup RxNorm: 669989 5-10 Milliliter(s) PO Q6 PRN 11/24/2018 No Stop Date Active Zithromax Z-Tomás 250 mg tablet RxNorm: 877674 1 Tablet(s) PO UD 11/24/2018 11/28/2018 Inactive Kenalog 40 mg/mL suspension for injection RxNorm: 6590336 Milliliter(s) Inj 11/24/2018 11/24/2018 Inactive lisinopril 10 mg tablet RxNorm: 148458 1 Tablet(s) PO daily 11/14/2018 02/28/2019 Inactive doxepin 10 mg capsule RxNorm: 1537729 1 Capsule(s) PO QHS as needed insomnia 10/31/2018 01/28/2019 Inactive Kenalog 40 mg/mL suspension for injection RxNorm: 2449470 Milliliter(s) Inj 09/26/2018 09/26/2018 Inactive Augmentin 875 mg-125 mg tablet RxNorm: 840729 1 Tablet(s) PO BID 09/26/2018 10/05/2018 Inactive escitalopram 20 mg tablet RxNorm: 329899 1 Tablet(s) PO QPM 06/27/2018 01/22/2019 Inactive lisinopril 10 mg tablet RxNorm: 262408 1 Tablet(s) PO daily 06/21/2018 11/13/2018 Inactive escitalopram 10 mg tablet RxNorm: 203419 1 Tablet(s) PO QPM 05/11/2018 06/26/2018 Inactive lisinopril 10 mg tablet RxNorm: 598426 1 Tablet(s) PO daily 05/11/2018 06/20/2018 Inactive alprazolam 0.5 mg tablet RxNorm: 422751 TAKE ONE-HALF TO ONE TABLET BY MOUTH EVERY 6 HOURS NEEDED 09/20/2017 01/28/2019 Inactive Augmentin 875 mg-125 mg tablet RxNorm: 368253 1 Tablet(s) PO BID 03/08/2017 03/17/2017 Inactive alprazolam 0.5 mg tablet RxNorm: 132511 Tablet(s) PO Q6 as needed TAKE ONE-HALF TO ONE TABLET BY MOUTH EVERY 6 HOURS NEEDED 12/24/2016 01/22/2017 Inactive triamcinolone acetonide 0.5 % topical cream RxNorm: 9800919 1 Application TOP BID 09/06/2016 09/15/2016 Inactive Levaquin 500 mg tablet RxNorm: 992839 1 Tablet(s) PO daily 07/08/2016 07/14/2016 Inactive please call her when ready Levaquin 500 mg tablet RxNorm: 149313 1 Tablet(s) PO daily 07/08/2016 07/07/2016 Inactive alprazolam 0.5 mg tablet RxNorm: 358719 Tablet(s) PO Q6 as needed TAKE ONE-HALF TO ONE TABLET BY MOUTH EVERY 6 HOURS NEEDED 04/26/2016 12/23/2016 Inactive Generic For:*XANAX 0.5 MG TABLET 05/16/2013 1:18:18 PM (Appended: Controlled substance eRx refill - RxReferenceNumber: [id number]) alprazolam 0.5 mg tablet RxNorm: 414376 Tablet(s) PO Q6 as needed TAKE ONE-HALF TO ONE TABLET BY MOUTH EVERY 6 HOURS NEEDED 04/26/2016 09/19/2017 Inactive Generic For:*XANAX 0.5 MG TABLET 05/16/2013 1:18:18 PM (Appended: Controlled substance eRx refill - RxReferenceNumber: [id number]) betamethasone dipropionate 0.05 % topical cream RxNorm: 168638 1 TOP UD 1-2 x per day PRN 01/16/2016 No Stop Date Active Kenalog 40 mg/mL suspension for injection RxNorm: 5093102 Milliliter(s) Inj 01/14/2016 01/14/2016 Inactive prednisone 20 mg tablet RxNorm: 494945 2 Tablet(s) PO daily 01/14/2016 01/18/2016 Inactive alprazolam 0.5 mg tablet RxNorm: 050602 Tablet(s) PO Q6 as needed TAKE ONE-HALF TO ONE TABLET BY MOUTH EVERY 6 HOURS NEEDED 09/26/2015 04/25/2016 Inactive Generic For:*XANAX 0.5 MG TABLET 05/16/2013 1:18:18 PM (Appended: Controlled substance eRx refill - RxReferenceNumber: [id number]) azithromycin 250 mg tablet RxNorm: 584417 1 Tablet(s) PO UD 2 pills day one and 1 pill day 2-5 08/29/2015 09/02/2015 Inactive Keflex 500 mg capsule RxNorm: 663169 1 Capsule(s) PO TID 02/03/2015 02/09/2015 Inactive take a probiotic while on the abt Keflex 500 mg capsule RxNorm: 069027 1 Capsule(s) PO TID 02/03/2015 02/02/2015 Inactive take a probiotic while on the abt hydrocodone 5 mg-acetaminophen 325 mg tablet RxNorm: 286314 1 Tablet(s) PO Q6 PRN 01/27/2015 08/16/2015 Inactive Kenalog 40 mg/mL suspension for injection RxNorm: 7451739 2 Milliliter(s) Inj 05/02/2014 05/02/2014 Inactive Zithromax Z-Tomás 250 mg tablet RxNorm: 532227 1 Tablet(s) PO QPM 05/02/2014 05/06/2014 Inactive Rocephin 500 mg solution for injection RxNorm: 926824 1 Milliliter(s) Inj 05/02/2014 05/02/2014 Inactive metoprolol tartrate 25 mg tablet RxNorm: 611092 1/2 Tablet(s) PO BID TAKE ONE-HALF TABLET BY MOUTH TWICE DAILY 11/05/2013 02/03/2014 Inactive vilazodone 40 mg tablet RxNorm: 3248077 1 Tablet(s) PO daily 08/09/2013 02/03/2014 Inactive Zithromax Z-Tomás 250 mg tablet RxNorm: 462506 Tablet(s) PO 07/17/2013 11/04/2013 Inactive Rocephin 500 mg Solution for Injection RxNorm: 5858058 Inj 07/17/2013 07/17/2013 Inactive Kenalog 40 mg/mL Susp for Injection RxNorm: 2674054 1 Milliliter(s) Inj 06/07/2013 06/07/2013 Inactive alprazolam 0.5 mg tablet RxNorm: 388592 1/2-1 Tablet(s) PO Q6 PRN 05/17/2013 No Stop Date Active alprazolam 0.5 mg tablet RxNorm: 695540 Tablet(s) PO TAKE ONE-HALF TO ONE TABLET BY MOUTH EVERY 6 HOURS NEEDED 05/17/2013 09/25/2015 Inactive Generic For:*XANAX 0.5 MG TABLET 05/16/2013 1:18:18 PM (Appended: Controlled substance [id number]) metoprolol tartrate 25 mg tablet RxNorm: 354928 Tablet(s) PO TAKE ONE-HALF TABLET BY MOUTH TWICE DAILY 02/12/2013 11/04/2013 Inactive metoprolol tartrate 25 mg tablet RxNorm: 414772 1/2 Tablet(s) PO BID 01/29/2013 02/28/2019 Inactive alprazolam 0.5 mg tablet RxNorm: 767483 1/2-1 Tablet(s) PO Q6 PRN 11/28/2012 05/17/2013 Inactive lisinopril 10 mg tablet RxNorm: 898577 1 Tablet(s) PO daily 10/30/2012 01/28/2013 Inactive vilazodone 40 mg tablet RxNorm: 1992665 1 Tablet(s) PO daily 08/08/2012 02/03/2013 Inactive metoprolol tartrate 25 mg tablet RxNorm: 225518 1/2 Tablet(s) PO BID 06/07/2012 10/04/2012 Inactive amoxicillin-potassium clavulanate 500 mg-125 mg tablet RxNorm: 827792 1 Tablet(s) PO TID 06/07/2012 06/13/2012 Inactive Ambien 5 mg tablet RxNorm: 608123 1 Tablet(s) PO HS PRN 05/02/2012 05/31/2012 Inactive lisinopril 10 mg tablet RxNorm: 866799 1 Tablet(s) PO daily 11/09/2011 06/05/2012 Inactive pramipexole 0.5 mg Tab RxNorm: 687868 1/2 Tablet(s) PO QHS 11/01/2011 01/29/2012 Inactive pramipexole 0.5 mg Tab RxNorm: 598323 1 Tablet(s) PO QHS 10/27/2011 10/31/2011 Inactive Fish Oil 1,200 mg-144 mg-216 mg Cap RxNorm: 1 Capsule(s) PO daily No Start Date Active potassium 99 mg Tab RxNorm: 1 Tablet(s) PO daily No Start Date 10/29/2012 Inactive betamethasone dipropionate 0.05 % topical cream RxNorm: 666058 1 TOP UD 1-2 x per day PRN No Start Date 01/15/2016 Inactive alprazolam 0.5 mg tablet RxNorm: 642148 1/2-1 Tablet(s) PO Q6 PRN No Start Date 11/27/2012 Inactive Ambien 5 mg tablet RxNorm: 486466 1 Tablet(s) PO HS PRN No Start Date 05/01/2012 Inactive calcium & magnesium carbonates 311 mg-232 mg Tab RxNorm: 282250 1 Tablet(s) PO BID No Start Date 10/29/2012 Inactive multivitamin Tab RxNorm: 1 Tablet(s) PO daily No Start Date 10/29/2012 Inactive vilazodone 40 mg tablet RxNorm: 3280901 1 Tablet(s) PO daily No Start Date 08/07/2012 Inactive Zithromax Z-Tomás 250 mg tablet RxNorm: 155486 Tablet(s) PO No Start Date 07/16/2013 Inactive Medication Administered Medication Codes Instructions Start Date Status Kenalog 40 mg/mL suspension for injection RxNorm: 4398919 Milliliter 11/24/2018 No longer Active Kenalog 40 mg/mL suspension for injection RxNorm: 6489292 Milliliter 09/26/2018 No longer Active Kenalog 40 mg/mL suspension for injection RxNorm: 7983625 Milliliter 01/14/2016 No longer Active Kenalog 40 mg/mL suspension for injection RxNorm: 7912778 2Milliliter 05/02/2014 No longer Active Rocephin 500 mg solution for injection RxNorm: 837935 1Milliliter 05/02/2014 No longer Active Rocephin 500 mg Solution for Injection RxNorm: 9002080 07/17/2013 No longer Active Kenalog 40 mg/mL Susp for Injection RxNorm: 3557794 1Milliliter 06/07/2013 No longer Active Immunizations Vaccine Codes Date Status Influenza CVX: 141 06/27/2018 completed Influenza CVX: 141 07/30/2016 completed Influenza CVX: 141 07/23/2015 completed Influenza CVX: 141 07/26/2013 completed Assessments Condition Codes Effective Dates Essential (primary) hypertension ICD-10: I10 ICD-9: 401.1 04/23/2019 Major depressive disorder, recurrent, moderate ICD-10: F33.1 [...] NEC ICD-9: 311 11/05/2013 ESSENTIAL HYPERTENSION SNOMED: 36811397 ICD-9: 401.9 11/05/2013 ACUTE BRONCHITIS ICD-9: 466.0 [...] Item Item Code Result Date Influenza A+B Jzr338 Influ A+B Negative 07/08/2016 Cbc With Differential [...] 29.7 pg 07/08/2016 Cbc With Differential Ord2 [place]% 6.8 % 07/08/2016 Cbc With Differential Ord2 [...] 1.19 K/ul 07/08/2016 Cbc With Differential Ord2 [place] ABS# 1.1 K/ul 07/08/2016 Cbc With Differential Ord2 Eos ABS# 0.0 K/ul 07/08/2016 Cbc With Differential Ord2 Baso ABS# 0.0 K/ul 07/08/2016 Comp Metabolic Kos128 NA 134 mEq/L 07/08/2016 Comp Metabolic Udi905 K 3.9 mEq/L 07/08/2016 Comp Metabolic Lek842 CL 101 mEq/L 07/08/2016 Comp Metabolic Nnv388 CO2 27.0 mEq/L 07/08/2016 Comp Metabolic Fxm426 ANION GAP 10 07/08/2016 Comp Metabolic Mqi014 GLUCOSE 120 mg/dL 07/08/2016 Comp Metabolic Wvn449 Creat 0.9 mg/dL 07/08/2016 Comp Metabolic Pwq328 eGFR 71 ml/min/1.73m2 07/08/2016 Comp Metabolic Bjy264 BUN 16 mg/dL 07/08/2016 Comp Metabolic Ynf593 B/C Ratio 18.4 Ratio 07/08/2016 Comp Metabolic Wog634 CALCIUM 10.0 mg/dL 07/08/2016 Comp Metabolic Vvb112 ALK PHOS 57 U/L 07/08/2016 Comp Metabolic Efs445 AST(SGOT) 21 U/L 07/08/2016 Comp Metabolic Bwm962 ALT(SGPT) 20 U/L 07/08/2016 Comp Metabolic Gfd774 BILI T 1.1 mg/dL 07/08/2016 Comp Metabolic Mvk617 ALBUMIN 3.9 g/dL 07/08/2016 Comp Metabolic Smv617 TPRO 6.2 g/dL 07/08/2016 Comp Metabolic Vzk186 GLOB 2.4 g/dL 07/08/2016 Comp Metabolic Rcr544 A/G Ratio 1.6 Ratio 07/08/2016 Comp Metabolic Pwh148 Osmo 271 mOsmo 07/08/2016 Comp Metabolic Hlh679 NA 130 mEq/L 08/29/2015 Comp Metabolic Jpw435 K 4.0 mEq/L 08/29/2015 Comp Metabolic Url946 CL 99 mEq/L 08/29/2015 Comp Metabolic Sex233 CO2 21.0 mEq/L 08/29/2015 Comp Metabolic Epl534 ANION GAP 14 08/29/2015 Comp Metabolic Mow178 GLUCOSE 105 mg/dL 08/29/2015 Comp Metabolic Gwe075 Creat 1.0 mg/dL 08/29/2015 Comp Metabolic Oae518 eGFR 62 ml/min/1.73m2 08/29/2015 Comp Metabolic Fbg407 BUN 8 mg/dL 08/29/2015 Comp Metabolic Iur510 B/C Ratio 8.2 Ratio 08/29/2015 Comp Metabolic Hep351 CALCIUM 9.9 mg/dL 08/29/2015 Comp Metabolic Yft930 ALK PHOS 93 U/L 08/29/2015 Comp Metabolic Oms328 AST(SGOT) 16 U/L 08/29/2015 Comp Metabolic Krb607 ALT(SGPT) 22 U/L 08/29/2015 Comp Metabolic Hfa380 BILI T 0.6 mg/dL 08/29/2015 Comp Metabolic Imh730 ALBUMIN 4.3 g/dL 08/29/2015 Comp Metabolic Qjs568 TPRO 6.7 g/dL 08/29/2015 Comp Metabolic Yey340 GLOB 2.4 g/dL 08/29/2015 Comp Metabolic Icm446 A/G Ratio 1.8 Ratio 08/29/2015 Comp Metabolic Ujk761 Osmo 259 mOsmo 08/29/2015 Cbc With Differential [...] Result Effective Dates Constitutional No recent illness 03/01/2019 Constitutional No [...] CPT-4: J3301 09/26/2018 THER/PROPH/DIAG INJ SC/IM CPT-4: 71609 09/26/2018 IMMUNIZATION ADMIN CPT- 4: 24415 06/27/2018 FLU VAC NO PRSV 4 RAHUL 3 YRS+ Formatting Model/CDA Sections, Assigned to/Zonia Martinez CPT-4: 73032Fmpqcix 06/27/2018 IMMUNIZATION ADMIN CPT- 4: 31770 07/30/2016 IIV4 FLU VACC NO PRESERV ID SNOMED CT: 91200452 CPT-4: 05607 07/30/2016 TRIAMCINOLONE ACET INJ NOS CPT-4: J3301 01/14/2016 IMMUNIZATION ADMIN CPT- 4: 28336 07/23/2015 IMMUNIZATION ADMIN EACH ADD CPT-4: 19726 07/23/2015 FLU VACC 4 RAHUL 3 YRS PLUS IM Formatting Model/CDA Sections, Assigned to SNOMED CT: 43608333 CPT-4: 56817Oseular 07/23/2015 THER/PROPH/DIAG INJ SC/IM CPT-4: 35785 05/02/2014 ROCEPHIN, PER 250 MG CPT- 4: J0696 05/02/2014 TRIAMCINOLONE ACET INJ NOS CPT-4: J3301 05/02/2014 ROCEPHIN, PER 250 MG CPT- 4: J0696 07/17/2013 TRIAMCINOLONE ACET INJ NOS CPT-4: J3301 06/07/2013 BIOPSY SKIN LESION CPT- 4: 26411 11/09/2011 Vital Signs Date Vital 04/23/2019 Blood Pressure 1: 142/88 Code: 8480-6 Heart Rate 1: 63 bpm SpO2: 98% 03/01/2019 Blood Pressure 1: 140/70 Code: 8480-6 BMI: 34.4 Code: 63557-0 Heart Rate 1: 73 bpm Height: 5'8" SpO2: 96% Weight: 226 lbs 02/05/2019 Blood Pressure 1: 146/88 Code: 8480-6 BMI: 34.4 Code: 01752-3 Heart Rate 1: 65 bpm Height: 5'8" SpO2: 98% Weight: 226 lbs 11/24/2018 Blood Pressure 1: 122/70 Code: 8480-6 BMI: 32.7 Code: 57478-9 Heart Rate 1: 85 bpm Height: 5'8" SpO2: 98% Temperature: 36.6 (C) / 97.9 (F) Weight: 215 lbs 10/31/2018 Blood Pressure 1: 126/78 Code: 8480-6 BMI: 32.7 Code: 24919-4 Heart Rate 1: 75 bpm Height: 5'8" SpO2: 97% Weight: 215 lbs 09/26/2018 Blood Pressure 1: 130/78 Code: 8480-6 BMI: 32.4 Code: 42587-9 Heart Rate 1: 67 bpm Height: 5'8" SpO2: 97% Temperature: 36.5 (C) / 97.7 (F) Weight: 213 lbs 06/27/2018 Blood Pressure 1: 132/78 Code: 8480-6 BMI: 33.9 Code: 86319-4 Heart Rate 1: 66 bpm Height: 5'8" SpO2: 95% Weight: 223 lbs 05/11/2018 Blood Pressure 1: 140/90 Code: 8480-6 BMI: 33.8 Code: 27923-2 Heart Rate 1: 74 bpm Height: 5'8" SpO2: 98% Weight: 222 lbs 03/08/2017 Blood Pressure 1: 144/86 Code: 8480-6 BMI: 31.2 Code: 75307-2 Heart Rate 1: 70 bpm Height: 5'8" SpO2: 98% Weight: 205 lbs 09/06/2016 Blood Pressure 1: 128/86 Code: 8480-6 BMI: 28.4 Code: 19981-5 Heart Rate 1: 86 bpm Height: 5'8" SpO2: 96% Weight: 187 lbs 07/08/2016 Blood Pressure 1: 120/60 Code: 8480-6 BMI: 28.4 Code: 75539-4 Height: 5'8" Temperature: 37.8 (C) / 100.1 (F) Weight: 187 lbs 01/14/2016 Blood Pressure 1: 152/86 Code: 8480-6 BMI: 30.4 Code: 97360-8 Heart Rate 1: 83 bpm Height: 5'8" SpO2: 97% Weight: 200 lbs 11/17/2015 Blood Pressure 1: 142/90 Code: 8480-6 BMI: 33.9 Code: 62308-8 Heart Rate 1: 75 bpm Height: 5'8" SpO2: 97% Weight: 223 lbs 08/29/2015 BMI: 35.6 Code: 22973-7 Heart Rate 1: 94 bpm Height: 5'8" SpO2: 98% Weight: 234 lbs 01/27/2015 Blood Pressure 1: 140/94 Code: 8480-6 Heart Rate 1: 88 bpm Height: 5'8" SpO2: 98% Weight: 08/05/2014 Blood Pressure 1: 138/82 Code: 8480-6 BMI: 33.6 Code: 85936-4 Heart Rate 1: 76 bpm Height: 5'8" Weight: 221 lbs 05/02/2014 Blood Pressure 1: 142/82 Code: 8480-6 Heart Rate 1: 84 bpm Height: SpO2: 100% Temperature: 37.1 (C) / 98.7 (F) Weight: 02/04/2014 Blood Pressure 1: 108/78 Code: 8480-6 BMI: 36.2 Code: 24915-5 Heart Rate 1: 60 bpm Height: 5'8" Weight: 238 lbs 11/05/2013 Blood Pressure 1: 134/74 Code: 8480-6 BMI: 35.9 Code: 17754-2 Heart Rate 1: 68 bpm Height: 5'8" Weight: 236 lbs 07/17/2013 Blood Pressure 1: 136/88 Code: 8480-6 BMI: 35.9 Code: 94467-9 Heart Rate 1: 72 bpm Height: 5'8" Temperature: 36.4 (C) / 97.6 (F) Weight: 236 lbs 06/07/2013 Blood Pressure 1: 134/92 Code: 8480-6 Heart Rate 1: 72 bpm Temperature: 37.0 (C) / 98.6 (F) Weight: 04/30/2013 Blood Pressure 1: 148/78 Code: 8480-6 BMI: 35.1 Code: 67267-7 Heart Rate 1: 64 bpm Height: 5'8" Weight: 231 lbs 01/29/2013 Blood Pressure 1: 128/84 Code: 8480-6 BMI: 34.4 Code: 26959-3 Heart Rate 1: 76 bpm Height: 5'8" Weight: 226 lbs 10/30/2012 Blood Pressure 1: 118/72 Code: 8480-6 BMI: 33.5 Code: 70427-3 Heart Rate 1: 64 bpm Height: 5'8" Weight: 220 lbs 07/12/2012 Blood Pressure 1: 134/88 Code: 8480-6 Heart Rate 1: 64 bpm Weight: 214 lbs 06/07/2012 Blood Pressure 1: 152/92 Code: 8480-6 Heart Rate 1: 68 bpm Respiratory Rate: 16 bpm Temperature: 36.7 (C) / 98.0 (F) Weight: 209 lbs 12/01/2011 Blood Pressure 1: 140/82 Code: 8480-6 BMI: 29.5 Code: 15261-8 Heart Rate 1: 72 bpm Height: 5'8" [...] 1: 144/90 Code: 8480-6 BMI: 29.3 Code: 65924-7 Heart Rate 1: 76 bpm Height: 5'8" [...] data Encounters Encounter Performer Location Codes Date ([id number]) Miscellaneous no charge Diagnosis: Essential (primary) hypertension[ICD10: I10] [facility] CPT-4: 12002 04/23/2019 ([id number]) 61238 EST. PATIENT, LEVEL III Diagnosis: Essential (primary) hypertension[ICD10: I10] Diagnosis: Major depressive disorder, recurrent, moderate[ICD10: F33.1] [facility] CPT-4: 87353 03/01/2019 07033 EST. PATIENT, LEVEL IV Diagnosis: Other acute sinusitis[ICD10: J01.80] Diagnosis: Other allergic rhinitis[ICD10: J30.89] Solange Olivares MD, [facility] CPT- 4: 71082 02/05/2019 ([id number]) 47422 EST. PATIENT, LEVEL III Diagnosis: Cough[ICD10: R05] Diagnosis: Acute upper respiratory infection, unspecified[ICD10: J06.9] Che Olivares MD, [facility] CPT-4: 08127 11/24/2018 ([id number]) 96993 EST. PATIENT, LEVEL III Diagnosis: Essential (primary) hypertension[ICD10: I10] Diagnosis: Major depressive disorder, recurrent, moderate[ICD10: F33.1] Diagnosis: Other insomnia[ICD10: G47.09] Verona Olivares MD, [facility] CPT-4: 37323 10/31/2018 42213 EST. PATIENT, LEVEL III Diagnosis: Acute laryngopharyngitis[ICD10: J06.0] Diagnosis: Other allergic rhinitis[ICD10: J30.89] Solange Olivares MD, [facility] CPT- 4: 23779 09/26/2018 ([id number]) 10471 EST. PATIENT, LEVEL III Diagnosis: Essential (primary) hypertension[ICD10: I10] Diagnosis: Major depressive disorder, recurrent, moderate[ICD10: F33.1] Diagnosis: Generalized anxiety disorder[ICD10: F41.1] Diagnosis: Encounter for immunization[ICD10: Z23] Verona Olivares MD, [facility] CPT-4: 20607 06/27/2018 ([id number]) 63809 EST. PATIENT, LEVEL IV Diagnosis: Essential (primary) hypertension[ICD10: I10] Diagnosis: Major depressive disorder, recurrent, moderate[ICD10: F33.1] Diagnosis: Generalized anxiety disorder[ICD10: F41.1] Verona Olivares MD, [facility] CPT-4: 08031 05/11/2018 ([id number]) 70915 EST. PATIENT, LEVEL III Diagnosis: Acute recurrent maxillary sinusitis[ICD10: J01.01] Diagnosis: Other hallucinations[ICD10: R44.2] Diagnosis: Allergic rhinitis due to pollen[ICD10: J30.1] Che Olivares MD, [facility] CPT-4: 63116 03/08/2017 ([id number]) 48276 EST. PATIENT, LEVEL II Diagnosis: Cellulitis of right upper limb[ICD10: L03.113] Che Olivares MD, [facility] CPT-4: 12192 09/06/2016 ([id number]) 75184 EST. PATIENT, LEVEL III Diagnosis: Cough[ICD10: R05] Diagnosis: Fever, unspecified[ICD10: R50.9] Diagnosis: Pain, unspecified[ICD10: R52] Che Olivares MD, [facility] CPT-4: 27759 07/08/2016 10157 EST. PATIENT, LEVEL IV Diagnosis: Rash and other nonspecific skin eruption[ICD10: R21] Solange Olivares MD, [facility] CPT-4: 37997 01/14/2016 ([id number]) 13666 EST. PATIENT, LEVEL III Diagnosis: Pain in left shoulder[ICD10: M25.512] Diagnosis: Pain in right shoulder[ICD10: M25.511] Diagnosis: Bicipital tendinitis, left shoulder[ICD10: M75.22] Che Olivares MD, [facility] CPT-4: 32455 11/17/2015 56391 EST. PATIENT, LEVEL IV Diagnosis: Epigastric pain[ICD10: R10.13] Diagnosis: Acute upper respiratory infection, unspecified[ICD10: J06.9] Solange Olivares MD, [facility] CPT-4: 44932 08/29/2015 ([id number]) 48811 EST. PATIENT, LEVEL III Diagnosis: Left knee pain[ICD9: 719.46] Diagnosis: ACUTE URI[ICD9: 465.9] Diagnosis: ALLERGIC RHINITIS[ICD9: 477.9] Che Olivares MD, [facility] CPT-4: 30147 01/27/2015 ([id number]) 54380 EST. PATIENT, LEVEL III Diagnosis: Elevated blood pressure (not hypertension)[ICD9: 796.2] Diagnosis: Biceps tendinitis[ICD9: 726.12] Diagnosis: Wrist pain, acute[ICD9: 719.43] Verona Olivares MD [facility] CPT-4: 66664 08/05/2014 ([id number]) 67763 EST. PATIENT, LEVEL III Diagnosis: Acute maxillary sinusitis[ICD9: 461.0] Verona Olivares MD [facility] CPT-4: 24806 05/02/2014 ([id number]) 43406 EST. PATIENT, LEVEL III Diagnosis: INSOMNIA IN OTHER DIS[ICD9: 327.01] Verona Olivares MD [facility] CPT- 4: 95346 02/04/2014 ([id number]) 04814 EST. PATIENT, LEVEL III Diagnosis: ESSENTIAL HYPERTENSION[SNOMED: 40257563] Diagnosis: DEPRESSIVE DISORDER NEC[ICD9: 311] Verona Olivares MD [facility] CPT- 4: 53808 11/05/2013 ([id number]) 88230 EST. PATIENT, LEVEL III Diagnosis: ACUTE BRONCHITIS[ICD9: 466.0] Che Olivares MD [facility] CPT-4: 34464 07/17/2013 ([id number]) 13276 EST. PATIENT, LEVEL III Diagnosis: ACUTE URI[ICD9: 465.9] Diagnosis: COUGH[ICD9: 786.2] Diagnosis: ALLERGIC RHINITIS[ICD9: 477.9] Che Olivares MD [facility] CPT-4: 48816 06/07/2013 ([id number]) 37675 EST. PATIENT, LEVEL III Diagnosis: ESSENTIAL HYPERTENSION[SNOMED: 24979574] Diagnosis: DEPRESSIVE DISORDER NEC[ICD9: 311] Verona Olivares MD [facility] CPT- 4: 15768 04/30/2013 ([id number]) 34757 EST. PATIENT, LEVEL III Diagnosis: ESSENTIAL HYPERTENSION[SNOMED: 32329897] Diagnosis: DEPRESSIVE DISORDER NEC[ICD9: 311] Verona Olivares MD [facility] CPT- 4: 93458 01/29/2013 ([id number]) 44002 EST. PATIENT, LEVEL IV Diagnosis: ESSENTIAL HYPERTENSION[SNOMED: 27541188] Diagnosis: DEPRESSIVE DISORDER NEC[ICD9: 311] Diagnosis: OBESITY[ICD9: 278.00] Verona Olivares MD [facility] CPT-4: 50640 10/30/2012 ([id number]) 94245 EST. PATIENT, LEVEL III Diagnosis: ESSENTIAL HYPERTENSION[SNOMED: 91269419] Diagnosis: HYPERLIPIDEMIA[ICD9: 272.4] Diagnosis: DEPRESSIVE DISORDER NEC[ICD9: 311] Verona Olivares MD [facility] CPT- 4: 36016 07/12/2012 ([id number]) 47409 EST. PATIENT, LEVEL IV Diagnosis: ESSENTIAL HYPERTENSION[SNOMED: 15157621] Diagnosis: DEPRESSIVE DISORDER NEC[ICD9: 311] Diagnosis: Palpitations[ICD9: 785.1] Diagnosis: Acute maxillary sinusitis[ICD9: 461.0] Verona Olivares MD [facility] CPT-4: 27296 06/07/2012 96863 EST. PATIENT, LEVEL IV Diagnosis: ESSENTIAL HYPERTENSION[SNOMED: 12980559] Diagnosis: COUGH[ICD9: 786.2] Diagnosis: Upper respiratory infection[ICD9: 465.9] ABDIAS Monroe MD CPT-4: 43299 12/01/2011 ([id number]) 67004 EST. PATIENT, LEVEL III Diagnosis: ESSENTIAL HYPERTENSION[SNOMED: 95003590] Verona Olivares MD [facility] CPT-4: 99739 11/18/2011 ([id number]) 34487 EST. PATIENT, LEVEL III Diagnosis: ESSENTIAL HYPERTENSION[SNOMED: 46775887] Verona Olivares MD, [facility] CPT-4: 27923 11/09/2011 ([id number]) OFFICE VISIT, NEW - LEVEL 4 Diagnosis: Restless leg syndrome[ICD9: 333.94] Diagnosis: INSOMNIA IN OTHER DIS[ICD9: 327.01] Diagnosis: Elevated blood pressure (not hypertension)[ICD9: 796.2] Verona Olivares MD, [facility] CPT-4: 03674 10/27/2011 Plan of Care Planned Activity Notes Codes Status Date Visit Plan: Patient states that it has [...] her to reduce any salt intake. 04/23/2019 Patient Education: Patient Medication Summary Completed [...] medications. 03/01/2019 App[facility]ment: [phone] [phone] (15 min) Moderate 03/01/2019 Patient Education: Patient [...] allergy spray. 02/05/2019 [phone] ([facility] min) Complex 02/05/2019 Patient Education: Patient [...] pharmacy. 11/24/2018 Appointment: Che Garcia WPtel: [phone] [phone] (15 min) Moderate 11/24/2018 Patient Education: Patient [...] current medications. 10/31/2018 Appointment: Verona Olivares WPtel: [phone] (15 min) Moderate 10/31/2018 Patient Education: [...] spray. 09/26/2018 App[facility]ment: [phone] Portal Appointment Requests 09/26/2018 App[facility]ment: [phone] (15 min) Moderate 09/26/2018 Patient Education: Patient [...] [facility]ares [phone] [place] (15 min) Moderate 06/27/2018 Patient Education: Patient Medication Summary Completed 06/27/2018 Patient Education: Depression Completed 06/27/2018 Appointment: [place] [phone] [facility] [place] [place] (15 min) Moderate 06/07/2018 Visit Plan: [...] 10mg daily. 05/11/2018 Appointment: Verona Olivares WPtel: [address] [place] [address] (15 min) Moderate 05/11/2018 Patient Education: Patient [...] Che Garcia WPtel: [facility]5 [phone] (15 min) Moderate 03/08/2017 Patient Education: Patient [...] of plan. 09/06/2016 Appointment: Che Garcia WPtel: [phone] [phone] (15 min) Moderate 09/06/2016 Patient Education: Patient Medication Summary Completed 09/06/2016 Appointment: Injection 07/30/2016 Patient Education: Patient Medication Summary Completed 07/30/2016 Visit Plan: Zhoos-dblyn-zvob aches-patient sent for stat labs and influenza swab-will treat as indicated-instructed patient we will call her with the results of her testings-tylenol/motrin as needed for fever, increase po fluids. Patient verbalized understanding of plan. 07/08/2016 Appointment: Che Garcia WPtel: [phone] [phone] (15 min) Moderate 07/08/2016 Patient [...] completely resolve. 01/27/2015 Appointment: Che Garcia WPtel: [phone] [phone] Sick 01/27/2015 Patient Education: Patient Medication Summary [...] blood pressures. 08/05/2014 Appointment: Verona Olivares WPtel: [phone] [facility] Follow up 08/05/2014 Patient Education: Patient [...] for sleep. 02/04/2014 Appointment: Verona Olivares WPtel: [phone] [facility] Follow up 02/04/2014 Patient Education: Patient [...] the antidepressant. 11/05/2013 Appointment: Verona Olivares WPtel: [address] [place], [place] [phone] Follow up 11/05/2013 Patient Education: Patient Medication Summary Completed 11/05/2013 Patient Education: Hypertension Completed 11/05/2013 Appointment: Verona Olivares WPtel: [address] [place], [place] [phone] Follow up 10/18/2013 Appointment: Verona Olivares WPtel: [address] [place], [place] [phone] Follow up 08/07/2013 Visit Plan: Bronchitis - acute case of bronchitis identified. Pt has been given antibiotics, breathing treatments as appropriate, and pt has been instructed to call if symptoms are not improved, or if symptoms acutely worsen. RX sent to patient's pharmacy. 07/17/2013 Appointment: Che Garcia WPtel: [facility]7 [phone] Sick 07/17/2013 Patient Education: Patient Medication Summary [...] allergy spray. 06/07/2013 Appointment: Che Garcia WPtel[phone] [facility] 06/07/2013 Patient Education: Patient Medication [...] medications. 04/30/2013 Appointment: Verona Olivares WPtel: [phone] [facility] Follow up 04/30/2013 Patient Education: Patient [...] [place] [phone] [place] Follow up 01/29/2013 Patient Education: Patient Medication [...] options. 10/30/2012 Appointment: Verona [facility]Ptel[phone] [place] Follow up 10/30/2012 Patient Education: Patient Medication [...] medications. 07/12/2012 Appointment: Verona Oliv[facility] WPtel: [phone] [place] Follow up 07/12/2012 Patient Education: Patient Medication [...] above medications. 06/07/2012 Appointment: Verona Olivares WPtel: [facility]5 [facility] [place] Other 06/07/2012 Patient Education: Patient Medication Summary Completed 06/07/2012 Patient Education: High Blood Pressure: Essential Hypertension Completed 06/07/2012 Appointment: Verona Olivares WPtel: [facility] [place] Other 05/29/2012 Visit Plan: Hypertension - [...] for cough 12/01/2011 Appointment: Verona Olivares WPtel: [facility]9 [facility] [place] Follow up 12/01/2011 Patient Education: Patient [...] change today. 11/18/2011 Appointment: Verona Olivares WPtel: [address] [place], [place] [phone] Other 11/18/2011 Patient Education: Patient Medication Summary [...] acute conerns. 11/09/2011 Appointment: Verona Olivares WPtel: [address] [place] [address] Surgical Procedure 11/09/2011 Patient Education: Patient Medication [...] the diet. 10/27/2011 Appointment: Verona Olivares WPtel: [facility] New Patient 10/27/2011 Patient Education: Patient Medication [...] exposure. No change in current medications. . Lmzcg-namgk-hoau aches-patient sent for stat labs and influenza [...]
--- NOTE | 2019-04-29 13:40 | NUR ---
Patient has blood present in the ear. She states her left side of the head/ear hit the combine header when she fell to the ground. Patient is complaining of right rib/side pain. She denies any loss of consciousness with the fall.
--- OUTSIDE RECORDS SUMMARY | 2019-04-29 13:41 | XMS REPORT | CCD ---
Author Author Verona Olivares Organization Verona Olivares MD, [facility] Address [address] [place] [address] Phone Care Team Providers Care Assembly Press Operator Name Role Phone Verona Olivares PP Unavailable CCM Unavailable Summary Purpose Interface Exchange Insurance Providers Payer name Policy type / Coverage type Covered green party ID Effective Begin Date Effective End Date [facility] [id number] Unknown Family history Mother Diagnosis Age At [...] Currently employed 10/27/[address]: 047091727 Never smoker 10/27/[address]: 027148607 Never drinks alcohol 10/27/2011 Has the patient [...] Fill Instructions lisinopril 20 mg tablet RxNorm: 045809 1 Tablet(s) PO daily 03/01/2019 05/23/2020 Active amoxicillin 500 mg capsule RxNorm: 028561 1 Capsule(s) PO TID 02/05/2019 02/14/2019 Inactive escitalopram 20 mg tablet RxNorm: 109006 1 Tablet(s) PO QPM 01/26/2019 05/25/2019 Active alprazolam 0.5 mg tablet RxNorm: 858734 Tablet(s) TAKE ONE-HALF TO ONE TABLET BY MOUTH EVERY 8 HOURS NEEDED 01/16/2019 01/30/2019 Inactive prednisone 20 mg tablet RxNorm: 339657 2 Tablet(s) PO daily 12/11/2018 12/10/2018 Inactive Augmentin 875 mg-125 mg tablet RxNorm: 798674 1 Tablet(s) PO BID 12/11/2018 12/17/2018 Inactive Augmentin 875 mg-125 mg tablet RxNorm: 166872 1 Tablet(s) PO BID 12/11/2018 12/10/2018 Inactive prednisone 20 mg tablet RxNorm: 202259 2 Tablet(s) PO daily 12/11/2018 12/13/2018 Inactive promethazine 6.25 mg-codeine 10 mg/5 mL syrup RxNorm: 275666 5-10 Milliliter(s) PO Q6 PRN 11/24/2018 No Stop Date Active Zithromax Z-Tomás 250 mg tablet RxNorm: 898570 1 Tablet(s) PO UD 11/24/2018 11/28/2018 Inactive Kenalog 40 mg/mL suspension for injection RxNorm: 0768296 Milliliter(s) Inj 11/24/2018 11/24/2018 Inactive lisinopril 10 mg tablet RxNorm: 413357 1 Tablet(s) PO daily 11/14/2018 02/28/2019 Inactive doxepin 10 mg capsule RxNorm: 4825455 1 Capsule(s) PO QHS as needed insomnia 10/31/2018 01/28/2019 Inactive Kenalog 40 mg/mL suspension for injection RxNorm: 9931914 Milliliter(s) Inj 09/26/2018 09/26/2018 Inactive Augmentin 875 mg-125 mg tablet RxNorm: 105161 1 Tablet(s) PO BID 09/26/2018 10/05/2018 Inactive escitalopram 20 mg tablet RxNorm: 704859 1 Tablet(s) PO QPM 06/27/2018 01/22/2019 Inactive lisinopril 10 mg tablet RxNorm: 802904 1 Tablet(s) PO daily 06/21/2018 11/13/2018 Inactive escitalopram 10 mg tablet RxNorm: 573787 1 Tablet(s) PO QPM 05/11/2018 06/26/2018 Inactive lisinopril 10 mg tablet RxNorm: 656249 1 Tablet(s) PO daily 05/11/2018 06/20/2018 Inactive alprazolam 0.5 mg tablet RxNorm: 241906 TAKE ONE-HALF TO ONE TABLET BY MOUTH EVERY 6 HOURS NEEDED 09/20/2017 01/28/2019 Inactive Augmentin 875 mg-125 mg tablet RxNorm: 273437 1 Tablet(s) PO BID 03/08/2017 03/17/2017 Inactive alprazolam 0.5 mg tablet RxNorm: 969271 Tablet(s) PO Q6 as needed TAKE ONE-HALF TO ONE TABLET BY MOUTH EVERY 6 HOURS NEEDED 12/24/2016 01/22/2017 Inactive triamcinolone acetonide 0.5 % topical cream RxNorm: 9920429 1 Application TOP BID 09/06/2016 09/15/2016 Inactive Levaquin 500 mg tablet RxNorm: 077410 1 Tablet(s) PO daily 07/08/2016 07/14/2016 Inactive please call her when ready Levaquin 500 mg tablet RxNorm: 611271 1 Tablet(s) PO daily 07/08/2016 07/07/2016 Inactive alprazolam 0.5 mg tablet RxNorm: 244187 Tablet(s) PO Q6 as needed TAKE ONE-HALF TO ONE TABLET BY MOUTH EVERY 6 HOURS NEEDED 04/26/2016 12/23/2016 Inactive Generic For:*XANAX 0.5 MG TABLET 05/16/2013 1:18:18 PM (Appended: Controlled substance eRx refill - RxReferenceNumber: [id number]) alprazolam 0.5 mg tablet RxNorm: 960165 Tablet(s) PO Q6 as needed TAKE ONE-HALF TO ONE TABLET BY MOUTH EVERY 6 HOURS NEEDED 04/26/2016 09/19/2017 Inactive Generic For:*XANAX 0.5 MG TABLET 05/16/2013 1:18:18 PM (Appended: Controlled substance eRx refill - RxReferenceNumber: [id number]) betamethasone dipropionate 0.05 % topical cream RxNorm: 611660 1 TOP UD 1-2 x per day PRN 01/16/2016 No Stop Date Active Kenalog 40 mg/mL suspension for injection RxNorm: 7981081 Milliliter(s) Inj 01/14/2016 01/14/2016 Inactive prednisone 20 mg tablet RxNorm: 890510 2 Tablet(s) PO daily 01/14/2016 01/18/2016 Inactive alprazolam 0.5 mg tablet RxNorm: 414884 Tablet(s) PO Q6 as needed TAKE ONE-HALF TO ONE TABLET BY MOUTH EVERY 6 HOURS NEEDED 09/26/2015 04/25/2016 Inactive Generic For:*XANAX 0.5 MG TABLET 05/16/2013 1:18:18 PM (Appended: Controlled substance eRx refill - RxReferenceNumber: [id number]) azithromycin 250 mg tablet RxNorm: 694175 1 Tablet(s) PO UD 2 pills day one and 1 pill day 2-5 08/29/2015 09/02/2015 Inactive Keflex 500 mg capsule RxNorm: 225505 1 Capsule(s) PO TID 02/03/2015 02/09/2015 Inactive take a probiotic while on the abt Keflex 500 mg capsule RxNorm: 713624 1 Capsule(s) PO TID 02/03/2015 02/02/2015 Inactive take a probiotic while on the abt hydrocodone 5 mg-acetaminophen 325 mg tablet RxNorm: 706379 1 Tablet(s) PO Q6 PRN 01/27/2015 08/16/2015 Inactive Kenalog 40 mg/mL suspension for injection RxNorm: 2345213 2 Milliliter(s) Inj 05/02/2014 05/02/2014 Inactive Zithromax Z-Tomás 250 mg tablet RxNorm: 633498 1 Tablet(s) PO QPM 05/02/2014 05/06/2014 Inactive Rocephin 500 mg solution for injection RxNorm: 412227 1 Milliliter(s) Inj 05/02/2014 05/02/2014 Inactive metoprolol tartrate 25 mg tablet RxNorm: 343980 1/2 Tablet(s) PO BID TAKE ONE-HALF TABLET BY MOUTH TWICE DAILY 11/05/2013 02/03/2014 Inactive vilazodone 40 mg tablet RxNorm: 6421381 1 Tablet(s) PO daily 08/09/2013 02/03/2014 Inactive Zithromax Z-Tomás 250 mg tablet RxNorm: 847002 Tablet(s) PO 07/17/2013 11/04/2013 Inactive Rocephin 500 mg Solution for Injection RxNorm: 9719848 Inj 07/17/2013 07/17/2013 Inactive Kenalog 40 mg/mL Susp for Injection RxNorm: 2240533 1 Milliliter(s) Inj 06/07/2013 06/07/2013 Inactive alprazolam 0.5 mg tablet RxNorm: 958475 1/2-1 Tablet(s) PO Q6 PRN 05/17/2013 No Stop Date Active alprazolam 0.5 mg tablet RxNorm: 790433 Tablet(s) PO TAKE ONE-HALF TO ONE TABLET BY MOUTH EVERY 6 HOURS NEEDED 05/17/2013 09/25/2015 Inactive Generic For:*XANAX 0.5 MG TABLET 05/16/2013 1:18:18 PM (Appended: Controlled substance eRx refill - [facility]ber: [id number]) metoprolol tartrate 25 mg tablet RxNorm: 980989 Tablet(s) PO TAKE ONE-HALF TABLET BY MOUTH TWICE DAILY 02/12/2013 11/04/2013 Inactive metoprolol tartrate 25 mg tablet RxNorm: 230487 1/2 Tablet(s) PO BID 01/29/2013 02/28/2019 Inactive alprazolam 0.5 mg tablet RxNorm: 818249 1/2-1 Tablet(s) PO Q6 PRN 11/28/2012 05/17/2013 Inactive lisinopril 10 mg tablet RxNorm: 739844 1 Tablet(s) PO daily 10/30/2012 01/28/2013 Inactive vilazodone 40 mg tablet RxNorm: 9365059 1 Tablet(s) PO daily 08/08/2012 02/03/2013 Inactive metoprolol tartrate 25 mg tablet RxNorm: 978629 1/2 Tablet(s) PO BID 06/07/2012 10/04/2012 Inactive amoxicillin-potassium clavulanate 500 mg-125 mg tablet RxNorm: 829696 1 Tablet(s) PO TID 06/07/2012 06/13/2012 Inactive Ambien 5 mg tablet RxNorm: 766312 1 Tablet(s) PO HS PRN 05/02/2012 05/31/2012 Inactive lisinopril 10 mg tablet RxNorm: 353486 1 Tablet(s) PO daily 11/09/2011 06/05/2012 Inactive pramipexole 0.5 mg Tab RxNorm: 415085 1/2 Tablet(s) PO QHS 11/01/2011 01/29/2012 Inactive pramipexole 0.5 mg Tab RxNorm: 505771 1 Tablet(s) PO QHS 10/27/2011 10/31/2011 Inactive Fish Oil 1,200 mg-144 mg-216 mg Cap RxNorm: 1 Capsule(s) PO daily No Start Date Active potassium 99 mg Tab RxNorm: 1 Tablet(s) PO daily No Start Date 10/29/2012 Inactive betamethasone dipropionate 0.05 % topical cream RxNorm: 815232 1 TOP UD 1-2 x per day PRN No Start Date 01/15/2016 Inactive alprazolam 0.5 mg tablet RxNorm: 846596 1/2-1 Tablet(s) PO Q6 PRN No Start Date 11/27/2012 Inactive Ambien 5 mg tablet RxNorm: 562453 1 Tablet(s) PO HS PRN No Start Date 05/01/2012 Inactive calcium & magnesium carbonates 311 mg-232 mg Tab RxNorm: 741479 1 Tablet(s) PO BID No Start Date 10/29/2012 Inactive multivitamin Tab RxNorm: 1 Tablet(s) PO daily No Start Date 10/29/2012 Inactive vilazodone 40 mg tablet RxNorm: 1803277 1 Tablet(s) PO daily No Start Date 08/07/2012 Inactive Zithromax Z-Tomás 250 mg tablet RxNorm: 387925 Tablet(s) PO No Start Date 07/16/2013 Inactive Medication Administered Medication Codes Instructions Start Date Status Kenalog 40 mg/mL suspension for injection RxNorm: 8902227 Milliliter 11/24/2018 No longer Active Kenalog 40 mg/mL suspension for injection RxNorm: 0694412 Milliliter 09/26/2018 No longer Active Kenalog 40 mg/mL suspension for injection RxNorm: 9174155 Milliliter 01/14/2016 No longer Active Kenalog 40 mg/mL suspension for injection RxNorm: 5731568 2Milliliter 05/02/2014 No longer Active Rocephin 500 mg solution for injection RxNorm: 860472 1Milliliter 05/02/2014 No longer Active Rocephin 500 mg Solution for Injection RxNorm: 0003653 07/17/2013 No longer Active Kenalog 40 mg/mL Susp for Injection RxNorm: 6815483 1Milliliter 06/07/2013 No longer Active Immunizations Vaccine [...] NEC ICD-9: 311 11/05/2013 ESSENTIAL HYPERTENSION SNOMED: 07296605 ICD-9: 401.9 11/05/2013 ACUTE BRONCHITIS ICD-9: 466.0 [...] Item Item Code Result Date Influenza A+B [id number] Influ A+B Negative 07/08/2016 Cbc With Differential [...] 29.7 pg 07/08/2016 Cbc With Differential Ord2 Finney% 6.8 % 07/08/2016 Cbc With Differential Ord2 [...] 1.19 K/ul 07/08/2016 Cbc With Differential Ord2 Finney ABS# 1.1 K/ul 07/08/2016 Cbc With Differential Ord2 Eos ABS# 0.0 K/ul 07/08/2016 Cbc With Differential Ord2 Baso ABS# 0.0 K/ul 07/08/2016 Comp Metabolic Uiz460 NA 134 mEq/L 07/08/2016 Comp Metabolic Dvc160 K 3.9 mEq/L 07/08/2016 Comp Metabolic Rry662 CL 101 mEq/L 07/08/2016 Comp Metabolic Lhn404 CO2 27.0 mEq/L 07/08/2016 Comp Metabolic Rcb647 ANION GAP 10 07/08/2016 Comp Metabolic Yrn481 GLUCOSE 120 mg/dL 07/08/2016 Comp Metabolic Asf555 Creat 0.9 mg/dL 07/08/2016 Comp Metabolic Xfi178 eGFR 71 ml/min/1.73m2 07/08/2016 Comp Metabolic Jqb180 BUN 16 mg/dL 07/08/2016 Comp Metabolic Eod455 B/C Ratio 18.4 Ratio 07/08/2016 Comp Metabolic Rss281 CALCIUM 10.0 mg/dL 07/08/2016 Comp Metabolic Xzj567 ALK PHOS 57 U/L 07/08/2016 Comp Metabolic Cor048 AST(SGOT) 21 U/L 07/08/2016 Comp Metabolic Ubs692 ALT(SGPT) 20 U/L 07/08/2016 Comp Metabolic Bes361 BILI T 1.1 mg/dL 07/08/2016 Comp Metabolic Mee991 ALBUMIN 3.9 g/dL 07/08/2016 Comp Metabolic Avm612 TPRO 6.2 g/dL 07/08/2016 Comp Metabolic Cre294 GLOB 2.4 g/dL 07/08/2016 Comp Metabolic Emh607 A/G Ratio 1.6 Ratio 07/08/2016 Comp Metabolic Cvd706 Osmo 271 mOsmo 07/08/2016 Comp Metabolic Phl646 NA 130 mEq/L 08/29/2015 Comp Metabolic Nig936 K 4.0 mEq/L 08/29/2015 Comp Metabolic Szm585 CL 99 mEq/L 08/29/2015 Comp Metabolic Fux464 CO2 21.0 mEq/L 08/29/2015 Comp Metabolic Yib969 ANION GAP 14 08/29/2015 Comp Metabolic Pgj147 GLUCOSE 105 mg/dL 08/29/2015 Comp Metabolic Irw558 Creat 1.0 mg/dL 08/29/2015 Comp Metabolic Bsz565 eGFR 62 ml/min/1.73m2 08/29/2015 Comp Metabolic Tzw089 BUN 8 mg/dL 08/29/2015 Comp Metabolic Mae636 B/C Ratio 8.2 Ratio 08/29/2015 Comp Metabolic Lho069 CALCIUM 9.9 mg/dL 08/29/2015 Comp Metabolic Dea823 ALK PHOS 93 U/L 08/29/2015 Comp Metabolic Xnn360 AST(SGOT) 16 U/L 08/29/2015 Comp Metabolic Irp946 ALT(SGPT) 22 U/L 08/29/2015 Comp Metabolic Rwf612 BILI T 0.6 mg/dL 08/29/2015 Comp Metabolic Crj398 ALBUMIN 4.3 g/dL 08/29/2015 Comp Metabolic Vwk147 TPRO 6.7 g/dL 08/29/2015 Comp Metabolic Jmo477 GLOB 2.4 g/dL 08/29/2015 Comp Metabolic Bka231 A/G Ratio 1.8 Ratio 08/29/2015 Comp Metabolic Zfy924 Osmo 259 mOsmo 08/29/2015 Cbc With Differential [...] CPT-4: J3301 09/26/2018 THER/PROPH/DIAG INJ SC/IM CPT-4: 21382 09/26/2018 IMMUNIZATION ADMIN CPT- 4: 98552 06/27/2018 FLU VAC NO PRSV 4 RAHUL 3 YRS+ Formatting Model/CDA Sections, Assigned to/Zonia Martinez CPT-4: 61367Qwgudon 06/27/2018 IMMUNIZATION ADMIN CPT- 4: 48830 07/30/2016 IIV4 FLU VACC NO PRESERV ID SNOMED CT: 37619370 CPT-4: 08360 07/30/2016 TRIAMCINOLONE ACET INJ NOS CPT-4: J3301 01/14/2016 IMMUNIZATION ADMIN CPT- 4: 69366 07/23/2015 IMMUNIZATION ADMIN EACH ADD CPT-4: 04619 07/23/2015 FLU VACC 4 RAHUL 3 YRS PLUS IM Formatting Model/CDA Sections, Assigned to SNOMED CT: 10342350 CPT-4: 58359Zwffvuu 07/23/2015 THER/PROPH/DIAG INJ SC/IM CPT-4: 54204 05/02/2014 ROCEPHIN, PER 250 MG CPT- 4: J0696 05/02/2014 TRIAMCINOLONE ACET INJ NOS CPT-4: J3301 05/02/2014 ROCEPHIN, PER 250 MG CPT- 4: J0696 07/17/2013 TRIAMCINOLONE ACET INJ NOS CPT-4: J3301 06/07/2013 BIOPSY SKIN LESION CPT- 4: 46066 11/09/2011 Vital Signs Date Vital 04/23/2019 Blood Pressure 1: 142/88 Code: 8480-6 Heart Rate 1: 63 bpm SpO2: 98% 03/01/2019 Blood Pressure 1: 140/70 Code: 8480-6 BMI: 34.4 Code: 72813-6 Heart Rate 1: 73 bpm Height: 5'8" SpO2: 96% Weight: 226 lbs 02/05/2019 Blood Pressure 1: 146/88 Code: 8480-6 BMI: 34.4 Code: 12285-4 Heart Rate 1: 65 bpm Height: 5'8" SpO2: 98% Weight: 226 lbs 11/24/2018 Blood Pressure 1: 122/70 Code: 8480-6 BMI: 32.7 Code: 41348-8 Heart Rate 1: 85 bpm Height: 5'8" SpO2: 98% Temperature: 36.6 (C) / 97.9 (F) Weight: 215 lbs 10/31/2018 Blood Pressure 1: 126/78 Code: 8480-6 BMI: 32.7 Code: 23720-6 Heart Rate 1: 75 bpm Height: 5'8" SpO2: 97% Weight: 215 lbs 09/26/2018 Blood Pressure 1: 130/78 Code: 8480-6 BMI: 32.4 Code: 79915-2 Heart Rate 1: 67 bpm Height: 5'8" SpO2: 97% Temperature: 36.5 (C) / 97.7 (F) Weight: 213 lbs 06/27/2018 Blood Pressure 1: 132/78 Code: 8480-6 BMI: 33.9 Code: 39650-7 Heart Rate 1: 66 bpm Height: 5'8" SpO2: 95% Weight: 223 lbs 05/11/2018 Blood Pressure 1: 140/90 Code: 8480-6 BMI: 33.8 Code: 07396-6 Heart Rate 1: 74 bpm Height: 5'8" SpO2: 98% Weight: 222 lbs 03/08/2017 Blood Pressure 1: 144/86 Code: 8480-6 BMI: 31.2 Code: 15924-3 Heart Rate 1: 70 bpm Height: 5'8" SpO2: 98% Weight: 205 lbs 09/06/2016 Blood Pressure 1: 128/86 Code: 8480-6 BMI: 28.4 Code: 83518-0 Heart Rate 1: 86 bpm Height: 5'8" SpO2: 96% Weight: 187 lbs 07/08/2016 Blood Pressure 1: 120/60 Code: 8480-6 BMI: 28.4 Code: 87080-1 Height: 5'8" Temperature: 37.8 (C) / 100.1 (F) Weight: 187 lbs 01/14/2016 Blood Pressure 1: 152/86 Code: 8480-6 BMI: 30.4 Code: 07988-5 Heart Rate 1: 83 bpm Height: 5'8" SpO2: 97% Weight: 200 lbs 11/17/2015 Blood Pressure 1: 142/90 Code: 8480-6 BMI: 33.9 Code: 55967-2 Heart Rate 1: 75 bpm Height: 5'8" SpO2: 97% Weight: 223 lbs 08/29/2015 BMI: 35.6 Code: 78296-3 Heart Rate 1: 94 bpm Height: 5'8" SpO2: 98% Weight: 234 lbs 01/27/2015 Blood Pressure 1: 140/94 Code: 8480-6 Heart Rate 1: 88 bpm Height: 5'8" SpO2: 98% Weight: 08/05/2014 Blood Pressure 1: 138/82 Code: 8480-6 BMI: 33.6 Code: 98435-1 Heart Rate 1: 76 bpm Height: 5'8" Weight: 221 lbs 05/02/2014 Blood Pressure 1: 142/82 Code: 8480-6 Heart Rate 1: 84 bpm Height: SpO2: 100% Temperature: 37.1 (C) / 98.7 (F) Weight: 02/04/2014 Blood Pressure 1: 108/78 Code: 8480-6 BMI: 36.2 Code: 39274-5 Heart Rate 1: 60 bpm Height: 5'8" Weight: 238 lbs 11/05/2013 Blood Pressure 1: 134/74 Code: 8480-6 BMI: 35.9 Code: 05104-6 Heart Rate 1: 68 bpm Height: 5'8" Weight: 236 lbs 07/17/2013 Blood Pressure 1: 136/88 Code: 8480-6 BMI: 35.9 Code: 09120-1 Heart Rate 1: 72 bpm Height: 5'8" Temperature: 36.4 (C) / 97.6 (F) Weight: 236 lbs 06/07/2013 Blood Pressure 1: 134/92 Code: 8480-6 Heart Rate 1: 72 bpm Temperature: 37.0 (C) / 98.6 (F) Weight: 04/30/2013 Blood Pressure 1: 148/78 Code: 8480-6 BMI: 35.1 Code: 65892-0 Heart Rate 1: 64 bpm Height: 5'8" Weight: 231 lbs 01/29/2013 Blood Pressure 1: 128/84 Code: 8480-6 BMI: 34.4 Code: 70493-1 Heart Rate 1: 76 bpm Height: 5'8" Weight: 226 lbs 10/30/2012 Blood Pressure 1: 118/72 Code: 8480-6 BMI: 33.5 Code: 58523-1 Heart Rate 1: 64 bpm Height: 5'8" Weight: 220 lbs 07/12/2012 Blood Pressure 1: 134/88 Code: 8480-6 Heart Rate 1: 64 bpm Weight: 214 lbs 06/07/2012 Blood Pressure 1: 152/92 Code: 8480-6 Heart Rate 1: 68 bpm Respiratory Rate: 16 bpm Temperature: 36.7 (C) / 98.0 (F) Weight: 209 lbs 12/01/2011 Blood Pressure 1: 140/82 Code: 8480-6 BMI: 29.5 Code: 18850-4 Heart Rate 1: 72 bpm Height: 5'8" [...] 1: 144/90 Code: 8480-6 BMI: 29.3 Code: 54308-5 Heart Rate 1: 76 bpm Height: 5'8" [...] data Encounters Encounter Performer Location Codes Date ([id number]) Miscellaneous no charge Diagnosis: Essential (primary) hypertension[ICD10: I10] [facility] CPT-4: 01710 04/23/2019 ([id number]) 00279 EST. PATIENT, LEVEL III Diagnosis: Essential (primary) hypertension[ICD10: I10] Diagnosis: Major depressive disorder, recurrent, moderate[ICD10: F33.1] [facility] CPT-4: 26353 03/01/2019 19940 EST. PATIENT, LEVEL IV Diagnosis: Other acute sinusitis[ICD10: J01.80] Diagnosis: Other allergic rhinitis[ICD10: J30.89] Solange Olivares MD, [facility] CPT- 4: 70801 02/05/2019 ([id number]) 84433 EST. PATIENT, LEVEL III Diagnosis: Cough[ICD10: R05] Diagnosis: Acute upper respiratory infection, unspecified[ICD10: J06.9] Che Olivares MD, [facility] CPT-4: 45262 11/24/2018 ([id number]) 61294 EST. PATIENT, LEVEL III Diagnosis: Essential (primary) hypertension[ICD10: I10] Diagnosis: Major depressive disorder, recurrent, moderate[ICD10: F33.1] Diagnosis: Other insomnia[ICD10: G47.09] Verona Olivares MD, [facility] CPT-4: 02751 10/31/2018 69431 EST. PATIENT, LEVEL III Diagnosis: Acute laryngopharyngitis[ICD10: J06.0] Diagnosis: Other allergic rhinitis[ICD10: J30.89] Solange Olivares MD, [facility] CPT- 4: 13008 09/26/2018 ([id number]) 40092 EST. PATIENT, LEVEL III Diagnosis: Essential (primary) hypertension[ICD10: I10] Diagnosis: Major depressive disorder, recurrent, moderate[ICD10: F33.1] Diagnosis: Generalized anxiety disorder[ICD10: F41.1] Diagnosis: Encounter for immunization[ICD10: Z23] Verona Olivares MD, [facility] CPT-4: 48080 06/27/2018 ([id number]) 74165 EST. PATIENT, LEVEL IV Diagnosis: Essential (primary) hypertension[ICD10: I10] Diagnosis: Major depressive disorder, recurrent, moderate[ICD10: F33.1] Diagnosis: Generalized anxiety disorder[ICD10: F41.1] Verona Olivares MD, [facility] CPT-4: 45567 05/11/2018 ([id number]) 11886 EST. PATIENT, LEVEL III Diagnosis: Acute recurrent maxillary sinusitis[ICD10: J01.01] Diagnosis: Other hallucinations[ICD10: R44.2] Diagnosis: Allergic rhinitis due to pollen[ICD10: J30.1] Che Olivares MD, [facility] CPT-4: 88666 03/08/2017 ([id number]) 74019 EST. PATIENT, LEVEL II Diagnosis: Cellulitis of right upper limb[ICD10: L03.113] Che Olivares MD, [facility] CPT-4: 59383 09/06/2016 ([id number]) 47399 EST. PATIENT, LEVEL III Diagnosis: Cough[ICD10: R05] Diagnosis: Fever, unspecified[ICD10: R50.9] Diagnosis: Pain, unspecified[ICD10: R52] Che Olivares MD, [facility] CPT-4: 15902 07/08/2016 90123 EST. PATIENT, LEVEL IV Diagnosis: Rash and other nonspecific skin eruption[ICD10: R21] Solange Olivares MD, [facility] CPT-4: 39330 01/14/2016 ([id number]) 02380 EST. PATIENT, LEVEL III Diagnosis: Pain in left shoulder[ICD10: M25.512] Diagnosis: Pain in right shoulder[ICD10: M25.511] Diagnosis: Bicipital tendinitis, left shoulder[ICD10: M75.22] Che Olivares MD, [facility] CPT-4: 80356 11/17/2015 71465 EST. PATIENT, LEVEL IV Diagnosis: Epigastric pain[ICD10: R10.13] Diagnosis: Acute upper respiratory infection, unspecified[ICD10: J06.9] Solange Olivares MD, [facility] CPT-4: 51420 08/29/2015 ([id number]) 42114 EST. PATIENT, LEVEL III Diagnosis: Left knee pain[ICD9: 719.46] Diagnosis: ACUTE URI[ICD9: 465.9] Diagnosis: ALLERGIC RHINITIS[ICD9: 477.9] Che Olivares MD, [facility] CPT-4: 75626 01/27/2015 ([id number]) 12252 EST. PATIENT, LEVEL III Diagnosis: Elevated blood pressure (not hypertension)[ICD9: 796.2] Diagnosis: Biceps tendinitis[ICD9: 726.12] Diagnosis: Wrist pain, acute[ICD9: 719.43] Verona Olivares MD [facility] CPT-4: 64921 08/05/2014 ([id number]) 87117 EST. PATIENT, LEVEL III Diagnosis: Acute maxillary sinusitis[ICD9: 461.0] Verona Olivares MD [facility] CPT-4: 36013 05/02/2014 ([id number]) 91884 EST. PATIENT, LEVEL III Diagnosis: INSOMNIA IN OTHER DIS[ICD9: 327.01] Verona Olivares MD [facility] CPT- 4: 88476 02/04/2014 ([id number]) 89430 EST. PATIENT, LEVEL III Diagnosis: ESSENTIAL HYPERTENSION[SNOMED: 25753150] Diagnosis: DEPRESSIVE DISORDER NEC[ICD9: 311] Verona Olivares MD [facility] CPT- 4: 23436 11/05/2013 ([id number]) 41119 EST. PATIENT, LEVEL III Diagnosis: ACUTE BRONCHITIS[ICD9: 466.0] Che Olivares MD [facility] CPT-4: 16387 07/17/2013 ([id number]) 70736 EST. PATIENT, LEVEL III Diagnosis: ACUTE URI[ICD9: 465.9] Diagnosis: COUGH[ICD9: 786.2] Diagnosis: ALLERGIC RHINITIS[ICD9: 477.9] Che Olivares MD [facility] CPT-4: 55485 06/07/2013 ([id number]) 82240 EST. PATIENT, LEVEL III Diagnosis: ESSENTIAL HYPERTENSION[SNOMED: 57224774] Diagnosis: DEPRESSIVE DISORDER NEC[ICD9: 311] Verona Olivares MD [facility] CPT- 4: 06789 04/30/2013 ([id number]) 69761 EST. PATIENT, LEVEL III Diagnosis: ESSENTIAL HYPERTENSION[SNOMED: 02603089] Diagnosis: DEPRESSIVE DISORDER NEC[ICD9: 311] Verona Olivares MD [facility] CPT- 4: 64419 01/29/2013 ([id number]) 74626 EST. PATIENT, LEVEL IV Diagnosis: ESSENTIAL HYPERTENSION[SNOMED: 37894258] Diagnosis: DEPRESSIVE DISORDER NEC[ICD9: 311] Diagnosis: OBESITY[ICD9: 278.00] Verona Olivares MD [facility] CPT-4: 79449 10/30/2012 ([id number]) 12266 EST. PATIENT, LEVEL III Diagnosis: ESSENTIAL HYPERTENSION[SNOMED: 45937900] Diagnosis: HYPERLIPIDEMIA[ICD9: 272.4] Diagnosis: DEPRESSIVE DISORDER NEC[ICD9: 311] Verona Olivares MD [facility] CPT- 4: 37914 07/12/2012 ([id number]) 21682 EST. PATIENT, LEVEL IV Diagnosis: ESSENTIAL HYPERTENSION[SNOMED: 06389185] Diagnosis: DEPRESSIVE DISORDER NEC[ICD9: 311] Diagnosis: Palpitations[ICD9: 785.1] Diagnosis: Acute maxillary sinusitis[ICD9: 461.0] Verona Olivares MD [facility] CPT-4: 58184 06/07/2012 52307 EST. PATIENT, LEVEL IV Diagnosis: ESSENTIAL HYPERTENSION[SNOMED: 25134717] Diagnosis: COUGH[ICD9: 786.2] Diagnosis: Upper respiratory infection[ICD9: 465.9] ABDIAS Monroe MD CPT-4: 32514 12/01/2011 ([id number]) 86316 EST. PATIENT, LEVEL III Diagnosis: ESSENTIAL HYPERTENSION[SNOMED: 64198376] Verona Olivares MD [facility] CPT-4: 02819 11/18/2011 ([id number]) 16119 EST. PATIENT, LEVEL III Diagnosis: ESSENTIAL HYPERTENSION[SNOMED: 14931590] Verona Olivares MD, [facility] CPT-4: 32665 11/09/2011 ([id number]) OFFICE VISIT, NEW - LEVEL 4 Diagnosis: Restless leg syndrome[ICD9: 333.94] Diagnosis: INSOMNIA IN OTHER DIS[ICD9: 327.01] Diagnosis: Elevated blood pressure (not hypertension)[ICD9: 796.2] Verona Olivares MD, [facility] CPT-4: 62752 10/27/2011 Plan of Care Planned Activity Notes [...] medications. 03/01/2019 [phone] ([facility] min) Moderate 03/01/2019 Patient Education: Patient [...] spray. 02/05/2019 [phone] ([facility] min) Complex 02/05/2019 Patient Education: Patient [...] pharmacy. 11/24/2018 Appointment: Che Garcia WPtel: [phone] [phone] (15 min) Moderate 11/24/2018 Patient Education: [...] current medications. 10/31/2018 Appointment: Verona Olivares WPtel: [facility] (15 min) Moderate 10/31/2018 Patient Education: [...] 09/26/2018 [facility]ment[phone] Portal Appointment Requests 09/26/2018 Appointment: Sol[phone] (15 min) Moderate 09/26/2018 Patient Education: [...] 10mg daily. 05/11/2018 Appointment: Verona Olivares WPtel: [address] [place] [address] (15 min) Moderate 05/11/2018 Patient Education: Patient [...] not resolve 03/08/2017 Appointment: Che Garcia WPtel: [phone] (15 min) Moderate 03/08/2017 Patient Education: Patient [...] of plan. 09/06/2016 Appointment: Che Garcia WPtel: [phone] [phone] (15 min) Moderate 09/06/2016 Patient Education: Patient Medication Summary Completed 09/06/2016 Appointment: Injection 07/30/2016 Patient Education: Patient Medication Summary Completed 07/30/2016 Visit Plan: Rvcvq-xgill-avbp aches-patient sent for stat labs and influenza swab-will treat as indicated-instructed patient we will call her with the results of her testings-tylenol/motrin as needed for fever, increase po fluids. Patient verbalized understanding of plan. 07/08/2016 Appointment: Che Garcia WPtel: [phone] [phone] (15 min) Moderate 07/08/2016 Patient Education: Patient [...] resolve. 01/27/2015 Appointment: Che Garcia WPtel: [phone] [phone] Sick 01/27/2015 Patient Education: Patient Medication Summary [...] blood pressures. 08/05/2014 Appointment: Verona Olivares WPtel: [phone] [facility] Follow up 08/05/2014 Patient Education: Patient [...] for sleep. 02/04/2014 Appointment: Verona Olivares WPtel: [phone] [facility] Follow up 02/04/2014 Patient Education: Patient [...] the antidepressant. 11/05/2013 Appointment: Verona Olivares WPtel: [address] [place], [place] [phone] Follow up 11/05/2013 Patient Education: Patient Medication Summary Completed 11/05/2013 Patient Education: Hypertension Completed 11/05/2013 Appointment: Verona Olivares WPtel: [address] [place], [place] [phone] Follow up 10/18/2013 Appointment: Verona Olivares WPtel: [address] [place], [place] [phone] Follow up 08/07/2013 Visit Plan: Bronchitis - acute case of bronchitis identified. Pt has been given antibiotics, breathing treatments as appropriate, and pt has been instructed to call if symptoms are not improved, or if symptoms acutely worsen. RX sent to patient's pharmacy. 07/17/2013 Appointment: Che Garcia WPtel: [phone] Sick 07/17/2013 Patient Education: Patient Medication Summary [...] allergy spray. 06/07/2013 Appointment: Che Garcia [facility]Ptel[phone] [facility] 06/07/2013 Patient Education: Patient Medication Summary [...] medications. 04/30/2013 Appointment: Verona Olivares WPtel: [phone] [facility] Follow up 04/30/2013 Patient Education: Patient [...] above medications. 06/07/2012 Appointment: Verona Olivares WPtel: [facility] [place] Other 06/07/2012 Patient Education: Patient Medication Summary Completed 06/07/2012 Patient Education: High Blood Pressure: Essential Hypertension Completed 06/07/2012 Appointment: Verona Olivares WPtel: [facility] [place] Other 05/29/2012 Visit Plan: Hypertension [...] for cough 12/01/2011 Appointment: Verona Olivares WPtel: [facility] [place] Follow up 12/01/2011 Patient Education: [...] change today. 11/18/2011 Appointment: Verona Olivares WPtel: [address] [place], [place] [phone] Other 11/18/2011 Patient Education: Patient Medication Summary [...] acute conerns. 11/09/2011 Appointment: Verona Olivares WPtel: [address] [place] [address] Surgical Procedure 11/09/2011 Patient Education: Patient Medication [...] the diet. 10/27/2011 Appointment: Verona Olivares WPtel: [facility] New Patient 10/27/2011 Patient Education: Patient Medication Summary Completed 10/27/2011 Patient Education: Restless Legs Syndrome Completed 10/27/2011 Patient Education: Insomnia Completed 10/27/2011 Instructions Comment . Patient states that it has been [...] her to reduce any salt intake. . Sinusitis - Pt has acute infection [...] in the nasal steroid allergy spray. . Ljpiu-ccfyg-jpgi aches-patient sent for stat labs and influenza [...] to call if symptoms are not improved. Topical steroid in addition to benadryl cream [...] with pt to be used for cough Topical steroid in addition to benadryl cream [...]
--- NOTE | 2019-04-29 13:43 | ED Fall/Injury ---
General Chief Complaint: Trauma-Non Activation Stated Complaint: FALL - R SIDE PAIN - R ARM LAC Source: patient, family Exam Limitations: no limitations History of Present Illness Date Seen by Provider: Apr 29, 2019 Time Seen by Provider: 13:39 Initial Comments This 64-year-old female presents after she fell 5 feet as she was exiting a combine. The patient sustained an injury to her right chest and abdomen and multiple contusions to her extremities. Patient also sustained a penetrating injury to her left auditory canal on a piece of metal that she struck when she fell. The patient has impaired hearing from the left ear and states that her hearing after a fall is essentially unchanged. There is no loss of consciousness. Patient denies neck pain or paresthesias or weakness in the extremities. Her greatest pain is in the right lower lateral ribs. Her second area of discomfort is in the left ear area Allergies and Home Medications Allergies Coded Allergies: No Known Drug Allergies (Verified , 04/29/19) Home Medications Alprazolam 0.5 Mg Tablet, 0.5 MG PO TID PRN for ANXIETY, (Reported) Calcium Carbonate 600 Mg Tablet, 600 MG PO DAILY, (Reported) Cholecalciferol (Vitamin D3) 1,000 Unit Tablet, 1,000 UNIT PO DAILY, (Reported) Escitalopram Oxalate 20 Mg Tablet, 20 MG PO DAILY, (Reported) Hydrocodone/Acetaminophen 1 Each Tablet, 1-2 EACH PO Q6H PRN for PAIN-MODERATE Prescribed by: JOEY ROPER MD on 04/29/19 1511 Lisinopril 10 Mg Tablet, 10 MG PO DAILY, (Reported) [place]-3/Dha/Epa/Fish Oil 1 Each Capsule, 1 EACH PO DAILY, (Reported) Sulfamethoxazole/Trimethoprim 1 Each Tablet, 1 EACH PO BID Prescribed by: JOEY ROPER MD on 04/29/19 1511 Patient Home Medication List Home Medication List Reviewed: Yes Review of Systems Review of Systems Constitutional: No chills, No fever Eyes: No Symptoms Reported Ears, Nose, Mouth, Throat: ear pain (past) Respiratory: see HPI, other (pain with inspiration in the right lower ribs) Cardiovascular: No chest pain, No palpitations Gastrointestinal: abdominal pain (RUQ); No nausea, No vomiting Genitourinary: No dysuria, No frequency Musculoskeletal: other (multiple contusions from the fall, the upper and lower extremities) Skin: other (there is a cigarette paper laceration right forearm) Psychiatric/Neurological: No Symptoms Reported Past Mtdafff-Nishir-Gvsonf Hx Past Med/Social Hx: Reviewed Nursing Past Med/Soc Hx Patient Social History Alcohol Use: Denies Use Recreational Drug Use: No Smoking Status: Never a Smoker Recent Foreign Travel: No Contact w/Someone Who Travel: No Past Medical History Surgeries: Yes (back) Adenoidectomy, Ear Surgery, Orthopedic, Tonsillectomy, Tubal Ligation Respiratory: No Cardiac: No Neurological: No Reproductive Disorders: No Sexually Transmitted Disease: No Gastrointestinal: No Musculoskeletal: No Endocrine: No Cancer: No Psychosocial: No Integumentary: No Blood Disorders: No Physical Exam Vital Signs Vital Signs - First Documented 04/29/19 13:42 Temp 96.8 Pulse 70 Resp 18 B/P (MAP) 148/86 (106) Pulse Ox 97 Capillary Refill : Height, Weight, BMI Height: 5'8.00" Weight: 225lbs. 0.0oz. 102.438736ng; BMI Method:Stated General Appearance: WD/WN, mild distress HEENT: other (there is blood in the left external auditory canal. I cannot visualize the tympanic membrane. Hearing appears to be grossly intact on the left.) Neck: non-tender, full range of motion, supple Cardiovascular: regular rate, rhythm Respiratory: lungs clear, normal breath sounds, other (tenderness palpation of the lower right ribs in the midaxillary line) Gastrointestinal: normal bowel sounds, soft, tenderness (in the right upper quadrant palpation) Back: normal inspection, no CVA tenderness Extremities: normal range of motion, pelvis stable, other (multiple contusions to both upper and lower extremities. No crepitus was appreciated there is no instability on examination of the joints and long bones.) Neurologic/Psychiatric: no motor/sensory deficits, alert, normal mood/affect, oriented x 3 Skin: normal color, warm/dry, ecchymosis [place] Coma Score Best Eye Response: (4) Open Spontaneously Best Verbal Response: (5) Oriented Best Motor Response: (6) Obeys Commands [place] Total: 15 Progress/Results/Core Measures Results/Orders Lab Results Laboratory Tests Test 04/29/19 13:40 04/29/19 14:30 Range/Units White Blood Count 6.7 4.3-11.0 10^3/uL Red Blood Count 4.17 L 4.35-5.85 10^6/uL Hemoglobin 12.7 11.5-16.0 G/DL Hematocrit 38 35-52 % Mean Corpuscular Volume 92 80-99 FL Mean Corpuscular Hemoglobin 30 25-34 PG Mean Corpuscular Hemoglobin Concent 33 32-36 G/DL Red Cell Distribution Width 12.6 10.0-14.5 % Platelet Count 353 130-400 10^3/uL Mean Platelet Volume 8.7 7.4-10.4 FL Neutrophils (%) (Auto) 62 42-75 % Lymphocytes (%) (Auto) 28 12-44 % Monocytes (%) (Auto) 9 0-12 % Eosinophils (%) (Auto) 1 0-10 % Basophils (%) (Auto) 0 0-10 % Neutrophils # (Auto) 4.1 1.8-7.8 X 10^3 Lymphocytes # (Auto) 1.9 1.0-4.0 X 10^3 Monocytes # (Auto) 0.6 0.0-1.0 X 10^3 Eosinophils # (Auto) 0.1 0.0-0.3 10^3/uL Basophils # (Auto) 0.0 0.0-0.1 10^3/uL Sodium Level 137 135-145 MMOL/L Potassium Level 4.1 3.6-5.0 MMOL/L Chloride Level 105 98-107 MMOL/L Carbon Dioxide Level 21 21-32 MMOL/L Anion Gap 11 5-14 MMOL/L Blood Urea Nitrogen 14 7-18 MG/DL Creatinine 0.93 0.60-1.30 MG/DL Estimat Glomerular Filtration Rate > 60 BUN/Creatinine Ratio 15 Glucose Level 103 70-105 MG/DL Calcium Level 10.1 8.5-10.1 MG/DL Corrected Calcium 9.9 8.5-10.1 MG/DL Total Bilirubin 0.5 0.1-1.0 MG/DL Aspartate Amino Transf (AST/SGOT) 18 5-34 U/L Alanine Aminotransferase (ALT/SGPT) 20 0-55 U/L Alkaline Phosphatase 61 40-136 U/L Total Protein 6.8 6.4-8.2 GM/DL Albumin 4.2 3.2-4.5 GM/DL Urine Color YELLOW Urine Clarity VERY CLOUDY H Urine pH 5 5-9 Urine Specific [place] 1.020 1.016-1.022 Urine Protein NEGATIVE NEGATIVE Urine Glucose (UA) NEGATIVE NEGATIVE Urine Ketones NEGATIVE NEGATIVE Urine Nitrite NEGATIVE NEGATIVE Urine Bilirubin NEGATIVE NEGATIVE Urine Urobilinogen NORMAL NORMAL MG/DL Urine Leukocyte Esterase 3+ H NEGATIVE Urine RBC (Auto) NEGATIVE NEGATIVE Urine RBC NONE /HPF Urine WBC 5-10 H /HPF Urine Squamous Epithelial Cells 0-2 /HPF Urine Crystals NONE /LPF Urine Bacteria MODERATE H /HPF Urine Casts NONE /LPF Urine Mucus MODERATE H /LPF Urine Culture Indicated YES My Orders Orders - JOEY ROPER MD Cbc With Automated Diff (04/29/19 13:36) Comprehensive Metabolic Panel (04/29/19 13:36) Ua Culture If Indicated (04/29/19 13:36) Ct Head Wo (04/29/19 13:36) Ct Chest/Abdomen/Pelvis Wo (04/29/19 13:36) Fentanyl Injection (Sublimaze Injection (04/29/19 13:45) Ns Iv 1000 Ml (Sodium Chloride 0.9%) (04/29/19 13:45) Urine Culture (04/29/19 14:30) Fentanyl Injection (Sublimaze Injection (04/29/19 15:15) Medications Given in ED Current Medications Medications Dose Ordered Sig/Helen Route Start Time Stop Time Status Last Admin Dose Admin Fentanyl Citrate 50 mcg ONCE ONCE IVP 04/29/19 13:45 04/29/19 13:46 DC 04/29/19 13:50 50 MCG Vital Signs/I&O 04/29/19 13:42 Temp 96.8 Pulse 70 Resp 18 B/P (MAP) 148/86 (106) Pulse Ox 97 Progress Progress Note : Time: 15:05 Progress Note Patient's workup in the emergency department demonstrated a fracture of the right seventh rib. There was cholelithiasis noted incidentally. Patient demonstrated a urinary tract infection. CT of the head and neck were unremarkable. Patient Ethel take Bactrim for her urinary tract infection and for coverage of the injury to the left ear. I prescribed Vicodin for pain. I recommended a follow-up with Dr. Olivares on Tuesday and Dr. Yadav later in the week. I asked the patient and family return to the emergency department if any further problems or questions. Departure Impression Primary Impression: Right rib fracture Qualified Codes: S22.31XA - Fracture of one rib, right side, initial encounter for closed fracture Additional Impressions: Cholelithiasis Qualified Codes: K80.20 - Calculus of gallbladder without cholecystitis without obstruction Urinary tract infection Qualified Codes: N30.00 - Acute cystitis without hematuria Blunt head trauma Qualified Codes: S09.8XXA - Other specified injuries of head, initial encounter Laceration of left ear canal Qualified Codes: S01.312A - Laceration without foreign body of left ear, initial encounter Disposition: HOME, SELF-CARE Condition: Improved Departure-Patient Inst. Decision time for Depature: 15:09 Referrals: ALEXANDRE YADAV MD, HOLLY A MD (PCP/Family) Primary Care Physician Patient Instructions: Rib Fractures in Adults Add. Discharge Instructions: Vicodin for pain. Bactrim DS as prescribed. Close follow-up with Dr. Olivares. Follow with Dr. Yadav for evaluation of left ear. Return if any problems or questions. All discharge instructions reviewed with patient and/or family. Voiced understanding. Scripts Hydrocodone/Acetaminophen (Vicodin 5-300 mg Tablet) 1 Each Tablet 1-2 EACH PO Q6H PRN for PAIN-MODERATE MDD 10 for 7 Days, #30 TAB Prov: JOEY ROPER MD 04/29/19 Sulfamethoxazole/Trimethoprim (Bactrim Ds Tablet) 1 Each Tablet 1 EACH PO BID for 10 Days, TAB Prov: JOEY ROPER MD 04/29/19 JOEY ROPER MD Apr 29, 2019 13:43
[2019-04-29] MEDS ORDERED: fentaNYL INJECTION 100 MCG/2 ML AMP IVP ONE ×2 (13:45→15:15)
[2019-04-29] MEDS ORDERED: NS IV 1000 ML 1,000 ML IV SCH (13:45)
[2019-04-29 13:51] LABS: BASOPHILS % (AUTO) 0 % (0-10); EOSINOPHILS # (AUTO) 0.1 10^3/uL (0.0-0.3); EOSINOPHILS % (AUTO) 1 % (0-10); HEMATOCRIT 38 % (35-52); HEMOGLOBIN 12.7 G/DL (11.5-16.0); LYMPHOCYTES # (AUTO) 1.9 X 10^3 (1.0-4.0); LYMPHOCYTES % (AUTO) 28 % (12-44); MEAN CORPUSCULAR HEMOGLOBIN 30 PG (25-34); MEAN CORPUSCULAR HGB CONC 33 G/DL (32-36); MEAN CORPUSCULAR VOLUME 92 FL (80-99); MEAN PLATELET VOLUME 8.7 FL (7.4-10.4); MONOCYTES # (AUTO) 0.6 X 10^3 (0.0-1.0); MONOCYTES % (AUTO) 9 % (0-12); NEUTROPHILS # (AUTO) 4.1 X 10^3 (1.8-7.8); NEUTROPHILS % (AUTO) 62 % (42-75); PLATELET COUNT 353 10^3/uL (130-400); RED CELL DISTRIBUTION WIDTH 12.6 % (10.0-14.5); WHITE BLOOD COUNT 6.7 10^3/uL (4.3-11.0)
--- NOTE | 2019-04-29 13:53 | NUR ---
Patient to CT via wheelchair.
--- NOTE | 2019-04-29 14:06 | NUR ---
Patient back to room from CT.
--- NOTE | 2019-04-29 14:06 | Diagnostic Imaging Report ---
PROCEDURE: CT head without contrast. TECHNIQUE: Multiple contiguous axial images were obtained through the brain without the use of intravenous contrast. Auto Exposure Controls were utilized during the CT exam to meet ALARA standards for radiation dose reduction. INDICATION: Fall. Head pain. FINDINGS: The ventricles are normal in size, shape and position. There is no acute parenchymal hemorrhage, edema or mass. There is no extra-axial mass or hemorrhage. IMPRESSION: Normal CT of the head. Dictated by: Dictated on workstation # [id number]
[2019-04-29 14:11] LABS: ALANINE AMINOTRANSFERASE 20 U/L (0-55); ALBUMIN 4.2 GM/DL (3.2-4.5); ALKALINE PHOSPHATASE 61 U/L (40-136); BILIRUBIN,TOTAL 0.5 MG/DL (0.1-1.0); BUN/CREATININE RATIO 15; CALCIUM 10.1 MG/DL (8.5-10.1); CARBON DIOXIDE 21 MMOL/L (21-32); CHLORIDE 105 MMOL/L (98-107); CREATININE SERUM 0.93 MG/DL (0.60-1.30); GFR ESTIMATED > 60; GLUCOSE 103 MG/DL (70-105); POTASSIUM 4.1 MMOL/L (3.6-5.0); SODIUM 137 MMOL/L (135-145); TOTAL PROTEIN 6.8 GM/DL (6.4-8.2)
--- OUTSIDE RECORDS SUMMARY | 2019-04-29 14:14 | XMS REPORT | Continuity of Care Document ---
Author Organization Unknown Address Unknown Allergies Active Description Code Type Severity Reaction Onset Reported/Identified Relationship to Patient Clinical Status Yes No Known Drug Allergies [id number] Drug Allergy Unknown N/A 08/28/2008 Medications There is no data. Problems Date Dx Coded Attending Type Code Diagnosis Diagnosed By 01/26/2015 MAYE FORRESTER APRN Ot 719.46 01/31/2015 Ot V76.12 01/31/2015 Ot V76.12 01/31/2015 Ot V76.12 01/31/2015 TACOS CARBAJAL, CRYSTAL Guallpa Ot V76.12 01/31/2015 LATHA WEISS TELETYPEWRITER INSTALLER Ot V76.12 03/07/2015 LATHA WEISSP Ot 719.46 05/14/2015 Ot V76.12 05/14/2015 Ot V76.12 05/14/2015 Ot V76.12 05/14/2015 TACOS CARBAJAL, CRYSTAL Guallpa Ot V76.12 05/14/2015 LATHA WEISS TELETYPEWRITER INSTALLER Ot V76.12 05/14/2015 LATHA WEISSP Ot 719.46 05/20/2015 TACOS CARBAJAL, CRYSTAL A Ot V76.12 05/20/2015 TACOS CARBAJAL, CRYSTAL Guallpa Ot V76.12 05/30/2015 TACOS CARBAJAL, CRYSTAL A Ot V76.12 11/17/2015 Ot V76.12 11/17/2015 Ot V76.12 11/17/2015 TACOS CARBAJAL, CRYSTAL Guallpa Ot V76.12 11/17/2015 LATHA WEISS TELETYPEWRITER INSTALLER Ot V76.12 11/17/2015 LATHA WEISS TELETYPEWRITER INSTALLER Ot 719.46 11/17/2015 TACOS CARBAJAL, CRYSTAL Guallpa Ot V76.12 12/04/2015 LATHA WEISSP Ot M25.511 12/04/2015 LATHA WEISS TELETYPEWRITER INSTALLER Ot M25.512 04/25/2017 LATHA WEISS TELETYPEWRITER INSTALLER Ot M25.511 PAIN IN RIGHT SHOULDER 04/25/2017 LATHA WEISS TELETYPEWRITER INSTALLER Ot M25.512 PAIN IN LEFT SHOULDER 04/26/2017 CLEMENTINE BULLARD APRN Ot G47.10 HYPERSOMNIA, UNSPECIFIED 04/26/2017 CLEMENTINE BULLARD IMAGING CLERK Ot R43.9 UNSPECIFIED DISTURBANCES OF SMELL AND TA 04/26/2017 CLEMENTINE BULLARD IMAGING CLERK Ot R53.83 OTHER FATIGUE 04/26/2017 LATHA WEISS TELETYPEWRITER INSTALLER Ot M25.511 PAIN IN RIGHT SHOULDER 04/26/2017 LATHA WEISS TELETYPEWRITER INSTALLER Ot M25.512 PAIN IN LEFT SHOULDER 04/26/2017 LATHA WEISS [place] TELETYPEWRITER INSTALLER Ot M25.511 PAIN IN RIGHT SHOULDER 04/26/2017 LATHA WEISS [place] TELETYPEWRITER INSTALLER Ot M25.512 PAIN IN LEFT SHOULDER 04/27/2017 CLEMENTINE BULLARD APRN Ot G47.10 HYPERSOMNIA, UNSPECIFIED 04/27/2017 CLEMENTINE BULLARD IMAGING CLERK Ot R43.9 UNSPECIFIED DISTURBANCES OF SMELL AND TA 04/27/2017 CLEMENTINE BULLARD IMAGING CLERK Ot R53.83 OTHER FATIGUE 05/11/2017 CORBY DORANJAN [...] UNSPECIFIED DISTURBANCES OF SMELL AND TA 05/11/2017 CORYB DORANJAN Ot R53.83 OTHER FATIGUE 05/11/2017 CORBY [...] Ot R44.2 OTHER HALLUCINATIONS 06/21/2018 LATHA WEISS TELETYPEWRITER INSTALLER Ot M25.511 PAIN IN RIGHT SHOULDER 06/21/2018 LATHA WEISS TELETYPEWRITER INSTALLER Ot M25.512 PAIN IN LEFT SHOULDER 06/21/2018 [...] MAMMOGRAM FOR MALIGNANT NE 02/28/2019 LATHA WEISS TELETYPEWRITER INSTALLER Ot M25.511 PAIN IN RIGHT SHOULDER 02/28/2019 LATHA WEISSP Ot M25.512 PAIN IN LEFT SHOULDER 02/28/2019 CORBY DO, RANJAN M Ot R43.9 UNSPECIFIED DISTURBANCES OF SMELL AND TA 02/28/2019 CORBY DO, RANJAN M Ot R06.00 DYSPNEA, UNSPECIFIED 02/28/2019 CORBY DO, RANJAN M Ot R43.9 UNSPECIFIED DISTURBANCES OF SMELL AND TA 02/28/2019 CORBY DO, RANJAN M Ot R53.83 OTHER FATIGUE 02/28/2019 CORBY DO, RANJAN M Ot R43.9 UNSPECIFIED DISTURBANCES OF SMELL AND TA 02/28/2019 CORBY DO, RANJAN M Ot R53.83 OTHER FATIGUE 02/28/2019 CANDICE CARBAJAL, ODALIS A Ot R44.2 OTHER HALLUCINATIONS 02/28/2019 TACOS CARBAJAL, CRYSTAL Guallpa Ot Z12.31 ENCNTR SCREEN MAMMOGRAM FOR MALIGNANT NE 03/01/2019 JAUN OJEDA MD Ot Z01.818 ENCOUNTER FOR OTHER PREPROCEDURAL EXAMIN 03/02/2019 JAUN OJEDA MD Ot F32.9 MAJOR DEPRESSIVE DISORDER, SINGLE EPISOD 03/02/2019 JAUN OJEDA MD Ot F41.9 ANXIETY DISORDER, UNSPECIFIED 03/02/2019 JAUN OJEDA MD Ot H25.11 AGE-RELATED NUCLEAR CATARACT, RIGHT EYE 03/02/2019 JAUN OJEDA MD Ot I10 ESSENTIAL (PRIMARY) HYPERTENSION 03/02/2019 JAUN OJEDA MD Ot Z79.899 OTHER CANOE BUILDER (CURRENT) DRUG THERAPY 03/07/2019 JAUN OJEDA MD Ot F32.9 MAJOR DEPRESSIVE DISORDER, SINGLE EPISOD 03/07/2019 JAUN OJEDA MD Ot F41.9 ANXIETY DISORDER, UNSPECIFIED 03/07/2019 JAUN OJEDA MD Ot H25.11 AGE-RELATED NUCLEAR CATARACT, RIGHT EYE 03/07/2019 JAUN OJEDA MD Ot I10 ESSENTIAL (PRIMARY) HYPERTENSION 03/07/2019 JAUN OJEDA MD Ot Z79.899 OTHER CANOE BUILDER (CURRENT) DRUG THERAPY 03/16/2019 JAUN OJEDA MD Ot Z01.818 ENCOUNTER FOR OTHER PREPROCEDURAL EXAMIN 03/16/2019 JAUN OJEDA MD Ot F32.9 MAJOR DEPRESSIVE DISORDER, SINGLE EPISOD 03/16/2019 JAUN OJEDA MD Ot H25.12 AGE-RELATED NUCLEAR CATARACT, LEFT EYE 03/16/2019 JAUN OJEDA MD Ot I10 ESSENTIAL (PRIMARY) HYPERTENSION 03/16/2019 JAUN OJEDA MD Ot Z79.899 OTHER CANOE BUILDER (CURRENT) DRUG THERAPY 03/20/2019 JAUN OJEDA MD Ot F32.9 MAJOR DEPRESSIVE DISORDER, SINGLE EPISOD 03/20/2019 JAUN OJEDA MD Ot H25.12 AGE-RELATED NUCLEAR CATARACT, LEFT EYE 03/20/2019 JAUN OJEDA MD Ot I10 ESSENTIAL (PRIMARY) HYPERTENSION 03/20/2019 JAUN OJEDA MD, Ot Z79.899 OTHER CUSTODIAL (CURRENT) DRUG THERAPY Procedures There is no data. Results There is no data. Encounters ACCT No. Visit Date/Time Discharge Status Pt. Type Provider Facility Loc./Unit Complaint [id number] 03/16/2019 06:50:00 03/16/2019 08:40:00 DIS Outpatient JAUN OJEDA MD [facility] CATARACT LEFT EYE [id number] 03/14/2019 05:34:00 03/14/2019 12:04:00 DIS Outpatient JAUN OJEDA MD [facility] PREOP CATARACT LEFT EYE [id number] 03/02/2019 10:12:00 03/02/2019 11:40:00 DIS Outpatient JAUN OJEDA MD [facility] CATARACT RIGHT EYE [id number] 03/01/2019 05:57:00 03/01/2019 10:01:00 DIS Outpatient JAUN OJEDA MD [facility] PREOP CATARACT LEFT EYE [id number] 05/16/2018 07:56:00 05/16/2018 23:59:59 CLS Outpatient CRYSTAL BALDERRAMA MD [facility] RAD SCREENING [id number] 06/07/2017 11:30:00 06/07/2017 23:59:59 CLS Outpatient ODALIS HARVEY MD [facility] RAD OLFACTORY HALLUCINATION [id number] 05/02/2017 07:47:00 05/02/2017 23:59:59 CLS Outpatient RANJAN TAVAREZ DO [facility] RT R06.00 [id number] 04/29/2017 07:38:00 04/29/2017 23:59:59 CLS Outpatient RANJAN TAVAREZ DO [facility] RT R43.9 [id number] 04/27/2017 08:34:00 04/27/2017 23:59:59 CLS Outpatient RANJAN TAVAREZ DO [facility] RAD R43.9 OLFACTORY IMPAIRMENT [id number] 04/26/2017 10:00:00 04/26/2017 10:24:00 DIS Outpatient CLEMENTINE BULLRAD APRN [facility] SLEEP SNORING, OBESITY, FATIGUE [id number] 11/17/2015 13:38:00 11/17/2015 23:59:59 CLS Outpatient LATHA WEISS [facility] [id number] 05/14/2015 09:27:00 05/14/2015 23:59:59 CLS Outpatient CRYSTAL BALDERRAMA MD [facility] RAD [id number] 01/31/2015 09:29:00 01/31/2015 23:59:59 CLS Outpatient LATHA WEISS [facility] RAD [id number] 01/26/2015 11:41:00 01/26/2015 12:32:00 DIS Emergency MAYE FORRESTER APRN [facility] ER [id number] 04/05/2014 06:53:00 04/05/2014 23:59:59 CLS Outpatient LATHA WEISS [facility] RAD [id number] 2013 07:17:00 2013 23:59:59 CLS Outpatient CRYSTAL BALDERRAMA MD [facility] RAD [id number] 01/31/2015 09:39:00 Document Registration [id number] 03/09/2012 13:03:00 Document Registration [id number] 02/23/2011 08:09:00 Document Registration [id number] 01/06/2010 07:04:00 Document Registration
--- NOTE | 2019-04-29 14:20 | Diagnostic Imaging Report ---
PROCEDURE: CT chest, abdomen, and pelvis without contrast. TECHNIQUE: Multiple contiguous axial images were obtained through the chest, abdomen, and pelvis without the use of intravenous contrast. Auto Exposure Controls were utilized during the CT exam to meet ALARA standards for radiation dose reduction. INDICATION: Fall from combine with right rib pain and left-sided hip pain. Bleeding from left ear. COMPARISON: 09/02/2008 FINDINGS: CT CHEST: The heart is normal in size. There is no pericardial effusion. The aorta is unremarkable on this noncontrast exam. No mediastinal adenopathy is seen. There is no pleural effusion or pneumothorax. No focal consolidation is seen. There are no central endobronchial lesions. There is a nondisplaced fracture of the lateral right seventh rib. CT ABDOMEN/PELVIS: The liver appears normal. Multiple stones are seen in the gallbladder. The spleen appears normal. The pancreas is unremarkable. The adrenal glands appear normal. The kidneys are unremarkable. The bowel loops are nondistended without obstruction. No free fluid or free air is seen. No acute osseous abnormality seen. IMPRESSION: 1. Nondisplaced right seventh rib fracture. No pleural effusion or pneumothorax. 2. No acute traumatic injury seen in the abdomen or pelvis. 3. Cholelithiasis. Dictated by: Dictated on workstation # [id number]
--- NOTE | 2019-04-29 14:22 | NUR ---
Skin tear to right forearm arm cleansed with hibicleanse and sterile saline. Opsite placed on wound.
[2019-04-29 14:36] LABS: BILIRUBIN,URINE NEGATIVE (NEGATIVE); CLARITY,URINE VERY CLOUDY; COLOR,URINE YELLOW; GLUCOSE, URINE (UA) NEGATIVE (NEGATIVE); KETONES,URINE NEGATIVE (NEGATIVE); LEUKOCYTE ESTERASE ,URINE 3+ (NEGATIVE); NITRITE,URINE NEGATIVE (NEGATIVE); PH,URINE 5 (5-9); PROTEIN,URINE NEGATIVE (NEGATIVE); UROBILINOGEN,URINE NORMAL (NORMAL)
[2019-04-29 14:43] LABS: BACTERIA,URINE MODERATE /HPF; SQUAMOUS EPITHELIAL CELL,UR 0-2 /HPF
[2019-04-29] MEDS ORDERED: SULF1TAB35 PO (15:11)
[2019-04-29] MEDS ORDERED: HYDR-3455 PO (15:11)
[2019-04-29] MEDS ORDERED: TETANUS,DIPTH,PERTUSS P/F (BOOSTRIX) 0.5 ML VIAL IM ONE (15:30)
--- NOTE | 2019-04-29 15:32 | NUR ---
Patient states fentanyl is helping the pain. She is resting quietly in bed. Vital signs stable.
[2019-04-29 16:03] VITALS: BP 130/77
== END 2019-04-29 16:04 | disposition home or self-care (01) ==
LOC: EDUNIT# 13:27 → ER 13:28
DX: S09.90XA Unspecified injury of head, initial encounter (principal); S22.31XA Fracture of one rib, right side, initial encounter for closed fracture; S01.312A Laceration without foreign body of left ear, initial encounter; K80.20 Calculus of gallbladder without cholecystitis without obstruction; N39.0 Urinary tract infection, site not specified; R40.2142 Coma scale, eyes open, spontaneous, at arrival to emergency department; R40.2252 Coma scale, best verbal response, oriented, at arrival to emergency department; R40.2362 Coma scale, best motor response, obeys commands, at arrival to emergency department; Z98.51 Tubal ligation status; Z90.89 Acquired absence of other organs; W17.89XA Other fall from one level to another, initial encounter
CPT/HCPCS: 36415; 70450; 71250; 74176; 80053; 81000; 85025; 87088; 90471; 90715; 96361; 96374; 96376

== ENCOUNTER → 2019-05-07 | Outpatient (CLI) | payer BC ==
[~2019-05-07] MED LIST changes: +HYDR-3455 PO; +SULF1TAB35 PO
--- NOTE | 2019-05-07 10:44 | Diagnostic Imaging Report ---
Lumbar spine. Indication: Injury, back pain. AP, lateral and spot lateral views were obtained. The lateral view shows vertebral body height and alignment to be within normal limits and similar to the recent CT abdomen/pelvis exam of 04/29/2019. As noted on the prior exam, there is fairly severe degenerative disc and bony disease at L5-S1. The other intervertebral spaces are fairly well maintained. There is no fracture or acute bony abnormality noted. There is no sign of paraspinal mass. Impression: There is no evidence for an acute bony abnormality. If clinical concern regarding underlying abnormality persists, then MRI would be recommended for further study. Dictated by: Dictated on workstation # [id number]
--- NOTE | 2019-05-07 10:46 | Diagnostic Imaging Report ---
Thoracic spine. Indication: Fell, back pain. AP, lateral and swimmer's views were obtained. The lateral view does show mild kyphosis of the thoracic spine. This appearance is similar to the reconstructed sagittal images of the CT abdomen/pelvis exam of 04/29/2019. There is moderate degenerative disc and bone disease throughout the thoracic spine. There is no fracture or acute bony abnormality. There is no evidence for a paraspinal mass. Impression: 1. There is no evidence for an acute bony abnormality. 2. If clinical concern regarding an underlying abnormality persists, MRI would be recommended for additional study. Dictated by: Dictated on workstation # [id number]
== END ==
LOC: RAD 09:32
PROVIDERS: ATTEND Nurse Practitioner Family
DX: S39.92XA Unspecified injury of lower back, initial encounter (principal); M54.6 Pain in thoracic spine; W19.XXXA Unspecified fall, initial encounter
CPT/HCPCS: 72072; 72100

== ENCOUNTER 2019-08-10 18:39 | Emergency (ER) | payer BC ==
[~2019-08-10] VITALS: Ht 172 cm; Wt 107.5 kg
[2019-08-10 19:37] LABS: BASOPHILS % (AUTO) 0 % (0-10); EOSINOPHILS # (AUTO) 0.1 10^3/uL (0.0-0.3); EOSINOPHILS % (AUTO) 1 % (0-10); HEMATOCRIT 39 % (35-52); HEMOGLOBIN 13.2 G/DL (11.5-16.0); LYMPHOCYTES # (AUTO) 1.9 X 10^3 (1.0-4.0); LYMPHOCYTES % (AUTO) 25 % (12-44); MEAN CORPUSCULAR HEMOGLOBIN 31 PG (25-34); MEAN CORPUSCULAR HGB CONC 34 G/DL (32-36); MEAN CORPUSCULAR VOLUME 92 FL (80-99); MEAN PLATELET VOLUME 8.5 FL (7.4-10.4); MONOCYTES # (AUTO) 0.5 X 10^3 (0.0-1.0); MONOCYTES % (AUTO) 7 % (0-12); NEUTROPHILS % (AUTO) 67 % (42-75); PLATELET COUNT 334 10^3/uL (130-400); RED CELL DISTRIBUTION WIDTH 12.5 % (10.0-14.5); WHITE BLOOD COUNT 7.5 10^3/uL (4.3-11.0)
[2019-08-10 19:39] LABS: BILIRUBIN,URINE NEGATIVE (NEGATIVE); CLARITY,URINE CLEAR; COLOR,URINE YELLOW; GLUCOSE, URINE (UA) NEGATIVE (NEGATIVE); KETONES,URINE NEGATIVE (NEGATIVE); LEUKOCYTE ESTERASE ,URINE 3+ (NEGATIVE); NITRITE,URINE NEGATIVE (NEGATIVE); PH,URINE 7 (5-9); PROTEIN,URINE NEGATIVE (NEGATIVE)
[2019-08-10 19:46] LABS: BACTERIA,URINE FEW /HPF; HYALINE CASTS, URINE 0-2 /LPF
[2019-08-10 19:58] LABS: ALBUMIN 4.3 GM/DL (3.2-4.5); BILIRUBIN,TOTAL 0.5 MG/DL (0.1-1.0); CREATININE SERUM 1.05 MG/DL (0.60-1.30); TOTAL PROTEIN 7.2 GM/DL (6.4-8.2)
--- NOTE | 2019-08-10 19:59 | ED Abdominal Pain ---
General Chief Complaint: Abdominal/GI Problems Stated Complaint: ABD PAIN Nursing Triage Note: PATIENT STATES THAT SHE HAS BEEN HAVING ABD PAIN X5 HOURS. N/V. NO URINARY SYMPTOMS. PAIN IS ON THE RIGHT SIDE AND RADS TO BACK. Sepsis Screen: No Definite Risk Source of Information: Patient (PAUL BRUNNER,MED STUDENT) History of Present Illness Date Seen by Provider: Aug 10, 2019 Time Seen by Provider: 19:29 Initial Comments patient is A 64Y/O female that presents to the ED with right sided abdominal pain that radiates to the R flank. Pain is stated as starting 5hrs ago and is described as constant, rated as 8/10, nothing make pain better or worse and patient as had nausea and vomited since pain started. Patient mentions that when she came in the ER in April for broken ribs, gallstones were found. ROS admits to Nausea and vomitinng denies; fever, chills, dizziness, changes in vision, changes in hearing, chest pain, SOB, cough, constipation, diarrhea, dysuria, frequency, Timing/Duration: 4-6 Hours Location: RUQ Radiation: Flank Associated Symptoms: Nausea/Vomiting (PAUL BRUNNER,MED STUDENT) Allergies and Home Medications Allergies Coded Allergies: No Known Drug Allergies (Verified , 04/29/19) Home Medications Alprazolam 0.5 Mg Tablet, 0.5 MG PO TID PRN for ANXIETY, (Reported) Calcium Carbonate 600 Mg Tablet, 600 MG PO DAILY, (Reported) Cholecalciferol (Vitamin D3) 1,000 Unit Tablet, 1,000 UNIT PO DAILY, (Reported) Escitalopram Oxalate 20 Mg Tablet, 20 MG PO DAILY, (Reported) Hydrocodone/Acetaminophen 1 Each Tablet, 1-2 EACH PO Q6H PRN for PAIN-MODERATE Prescribed by: JOEY ROPER MD on 04/29/19 1511 Lisinopril 10 Mg Tablet, 10 MG PO DAILY, (Reported) [place]man-3/Dha/Epa/Fish Oil 1 Each Capsule, 1 EACH PO DAILY, (Reported) Sulfamethoxazole/Trimethoprim 1 Each Tablet, 1 EACH PO BID Prescribed by: JOEY ROPER MD on 04/29/19 1511 Patient Home Medication List Home Medication List Reviewed: Yes (PAYAL KEYS MD) Review of Systems Review of Systems Constitutional: see HPI EENTM: See HPI Respiratory: See HPI Cardiovascular: See HPI Gastrointestinal: See HPI Genitourinary: See HPI (PAUL BRUNNER MED STUDENT) Past Cffoobr-Ltjozx-[place] Hx Patient Social History Alcohol Use: Denies Use Recreational Drug Use: No Smoking Status: Never a Smoker 2nd Hand Smoke Exposure: No Recent Foreign Travel: No Contact w/Someone Who Travel: No Recent Infectious Disease Expo: No (PAUL BRUNNER,NATALI STUDENT) Past Medical History Surgeries: Yes (back) Adenoidectomy, Ear Surgery, Orthopedic, Tonsillectomy, Tubal Ligation Respiratory: No Cardiac: No Neurological: No Reproductive Disorders: No Sexually Transmitted Disease: No Gastrointestinal: No Musculoskeletal: No Endocrine: No Cancer: No Psychosocial: Yes Anxiety, Depression Integumentary: No Blood Disorders: No (PAUL BRUNNER MED STUDENT) Physical Exam Vital Signs Vital Signs - First Documented 08/10/19 08/10/19 18:51 21:57 Temp 36.6 Pulse 79 Resp 20 B/P (MAP) 157/90 (112) Pulse Ox 99 O2 Delivery Room Air (PAYAL EKYS MD) Vital Signs Capillary Refill : Less Than 3 Seconds (PAUL BRUNNER,MED STUDENT) Height/Weight/BMI Height: 5'8.00" Weight: 225lbs. 0.0oz. 102.855430ev; 36.00 BMI Method:Stated General Appearance: WD/WN, mild distress, obese Respiratory: chest non-tender, lungs clear, normal breath sounds, no respiratory distress, no accessory muscle use Cardiovascular: normal peripheral pulses, regular rate, rhythm, no edema, no gallop, no JVD, no murmur Peripheral Pulses: 2+ Dorsalis Pedis (R), 2+ Left Dors-Pedis (L), 2+ Radial Pul ses (R), 2+ Radial Pulses (L) Gastrointestinal: normal bowel sounds, soft, no organomegaly, no pulsatile m ass, guarding (with deep palpation of RUQ ) Back: no CVA tenderness, no vertebral tenderness Neurologic/Psychiatric: no motor/sensory deficits, alert, normal mood/affect, oriented x 3 Skin: normal color, warm/dry Lymphatic: no adenopathy (PAUL BRUNNER,MED STUDENT) Progress/Results/Core Measures Results/Orders Lab Results Laboratory Tests Test 08/10/19 19:31 08/10/19 19:35 Range/Units Urine Color YELLOW Urine Clarity CLEAR Urine pH 7 5-9 Urine Specific [place] 1.015 L 1.016-1.022 Urine Protein NEGATIVE NEGATIVE Urine Glucose (UA) NEGATIVE NEGATIVE Urine Ketones NEGATIVE NEGATIVE Urine Nitrite NEGATIVE NEGATIVE Urine Bilirubin NEGATIVE NEGATIVE Urine Urobilinogen NORMAL NORMAL MG/DL Urine Leukocyte Esterase 3+ H NEGATIVE Urine RBC (Auto) NEGATIVE NEGATIVE Urine RBC NONE /HPF Urine WBC 10-25 H /HPF Urine Crystals NONE /LPF Urine Bacteria FEW H /HPF Urine Casts PRESENT /LPF Urine Hyaline Casts 0-2 H /LPF Urine Mucus NEGATIVE /LPF Urine Culture Indicated YES White Blood Count 7.5 4.3-11.0 10^3/uL Red Blood Count 4.28 L 4.35-5.85 10^6/uL Hemoglobin 13.2 11.5-16.0 G/DL Hematocrit 39 35-52 % Mean Corpuscular Volume 92 80-99 FL Mean Corpuscular Hemoglobin 31 25-34 PG Mean Corpuscular Hemoglobin Concent 34 32-36 G/DL Red Cell Distribution Width 12.5 10.0-14.5 % Platelet Count 334 130-400 10^3/uL Mean Platelet Volume 8.5 7.4-10.4 FL Neutrophils (%) (Auto) 67 42-75 % Lymphocytes (%) (Auto) 25 12-44 % Monocytes (%) (Auto) 7 0-12 % Eosinophils (%) (Auto) 1 0-10 % Basophils (%) (Auto) 0 0-10 % Neutrophils # (Auto) 5.0 1.8-7.8 X 10^3 Lymphocytes # (Auto) 1.9 1.0-4.0 X 10^3 Monocytes # (Auto) 0.5 0.0-1.0 X 10^3 Eosinophils # (Auto) 0.1 0.0-0.3 10^3/uL Basophils # (Auto) 0.0 0.0-0.1 10^3/uL Sodium Level 139 135-145 MMOL/L Potassium Level 4.0 3.6-5.0 MMOL/L Chloride Level 102 98-107 MMOL/L Carbon Dioxide Level 25 21-32 MMOL/L Anion Gap 12 5-14 MMOL/L Blood Urea Nitrogen 16 7-18 MG/DL Creatinine 1.05 0.60-1.30 MG/DL Estimat Glomerular Filtration Rate 53 BUN/Creatinine Ratio 15 Glucose Level 99 70-105 MG/DL Calcium Level 11.0 H 8.5-10.1 MG/DL Corrected Calcium 10.8 H 8.5-10.1 MG/DL Total Bilirubin 0.5 0.1-1.0 MG/DL Aspartate Amino Transf (AST/SGOT) 36 H 5-34 U/L Alanine Aminotransferase (ALT/SGPT) 53 0-55 U/L Alkaline Phosphatase 81 40-136 U/L Total Protein 7.2 6.4-8.2 GM/DL Albumin 4.3 3.2-4.5 GM/DL Lipase 57 8-78 U/L (PAYAL KEYS MD) My Orders Orders - PAYAL KEYS MD Cbc With Automated Diff (08/10/19 19:18) Comprehensive Metabolic Panel (08/10/19 19:18) Ua Culture If Indicated (08/10/19 19:18) Ed Iv/Invasive Line Start (08/10/19 19:18) Urine Culture (08/10/19 19:31) Lipase (08/10/19 20:19) Ondansetron Injection (Zofran Injectio (08/10/19 20:30) Lidocaine 2% Viscous 15 Ml (Xylocaine Vi (08/10/19 20:30) Antacid Suspension (Mylanta Suspension (08/10/19 20:30) Famotidine Injection (Pepcid Injection) (08/10/19 20:28) Hydrocodone/Apap 5/325 Tablet (Lortab 5 (08/10/19 21:45) (PAYAL KEYS MD) Medications Given in ED Current Medications Medications Dose Ordered Sig/Helen Route Start Time Stop Time Status Last Admin Dose Admin Acetaminophen/ Hydrocodone Bitart 1 tab ONCE ONCE PO 08/10/19 21:45 08/10/19 21:46 DC 08/10/19 21:53 1 TAB Al Hydrox/Mg Hydrox/Simethicone 30 ml ONCE ONCE PO 08/10/19 20:30 08/10/19 20:31 DC 08/10/19 20:46 30 ML Lidocaine HCl 15 ml ONCE ONCE PO 08/10/19 20:30 08/10/19 20:31 DC 08/10/19 20:46 15 ML Ondansetron HCl 8 mg ONCE ONCE IVP 08/10/19 20:30 08/10/19 20:31 DC 08/10/19 20:40 8 MG (PAYAL KEYS MD) Vital Signs/I&O 08/10/19 08/10/19 18:51 21:57 Temp 36.6 Pulse 79 59 Resp 20 20 B/P (MAP) 157/90 (112) 149/90 (112) Pulse Ox 99 96 O2 Delivery Room Air (PAYAL KEYS MD) Blood Pressure Mean: 112 Departure Impression Primary Impression: Right upper quadrant pain Additional Impressions: Epigastric pain Cholelithiasis Qualified Codes: K80.20 - Calculus of gallbladder without cholecystitis without obstruction Urinary tract infection Qualified Codes: N39.0 - Urinary tract infection, site not specified Disposition: 01 HOME, SELF-CARE Condition: Improved Departure-Patient Inst. Decision time for Depature: 21:44 (PAYAL KEYS MD) Referrals: CRYSTAL BALDERRAMA MD (PCP/Family) Primary Care Physician Patient Instructions: Acute Abdomen (Belly Pain), Adult (DC), Gallstones (DC) Add. Discharge Instructions: Your pain may be related to problems with your gallstones and/or gastritis (inflammation of the stomach lining). Please follow-up with Dr. BALDERRAMA as soon as possible. Return to the emergency room if you have worsening of of symptoms including escalation of pain, uncontrolled nausea or vomiting, fever over 100, etc. Drink only clear liquids this evening. Do not eat any solids until after your gallbladder ultrasound tomorrow. Do not eat or drink anything after 2:00 in the morning in preparation for gallbladder ultrasound. You may return to the hospital at 7:30 a.m. and check in with registration at that time. Bring your ultrasound order form with you. You may take Tylenol (acetaminophen) up to 1000 mg every 6 hours as needed for pain. In general, eat a diet very low in fats and oils to avoid irritating your gallbladder. All discharge instructions reviewed with patient and/or family. Voiced understanding. This patient was interviewed and examined by me personally along with Paul Brunner, MS 3. I have reviewed MS 3 documentation and agree with his history, physical, and assessments with the following additions and corrections: This 64-year-old woman presents to the emergency room with 6 hours of epigastric and right upper quadrant pain. She has had associated nausea. She vomited in the waiting room. She is not vomiting no and has had no constipation or diarrhea. She is afebrile. She last ate when she had a turkey and cheese sandwich at lunch. She denies any prior episodes of this kind of pain. Pain was of fairly gradual onset. She has had some mild sensation of upset stomach for the past 2 days. Pain initially was rated as 8/10. Review of chart notes incidental cholelithiasis noted on a CT scan this summer. Exam: Gen.: Alert, oriented, in obvious discomfort HEENT: Normocephalic and atraumatic Heart: Regular rate and rhythm without murmur Lungs: Clear to auscultation bilaterally with normal effort Abdomen: Soft, tender in the right upper quadrant and epigastrium, normal bowel sounds, nondistended Extremities: Normal to inspection, no edema Skin: Warm and dry without rashes Neuropsych: Alert and oriented, no focal deficits Labs demonstrated no evidence of infection or inflammation. UA was suggestive of mild urinary tract infection. Patient declined antibiotic therapy as she has had no symptoms of urinary tract infection. She prefers to wait until urine culture results to confirm urinary tract infection. She was treated with a GI cocktail and Pepcid with reasonably good results. Pain decreased from 8/10 down to 4/10. She was given hydrocodone to manage the residual pain. Given history of cholelithiasis and pain in the location of the epigastrium and right upper quadrant, further assessment with ultrasound was felt appropriate. She was given an outpatient order form for ultrasound in the morning. (PAYAL KEYS MD) Copy Copies To 1: CRYSTAL BALDERRAMA MD, MICAH,MED STUDENT Aug 10, 2019 19:59 PAYAL KEYS MD Aug 10, 2019 21:47
[2019-08-10] MEDS ORDERED: FAMOTIDINE 20MG/2ML IV (PEPCID) IV STA (20:28)
[2019-08-10] MEDS ORDERED: ONDANSETRON 4 MG/2 ML (SDV) Z0FRAN IVP ONE (20:30)
[2019-08-10] MEDS ORDERED: ANTACID SUSP 30 ML UDC (MYLANTA) PO ONE (20:30)
[2019-08-10] MEDS ORDERED: LIDOCAINE 2% VISCOUS 15 ML UDC PO ONE (20:30)
--- NOTE | 2019-08-10 21:09 | NUR ---
Pt now resting back on the bed. Pt reports pain is now "tolerable".
[2019-08-10] MEDS ORDERED: HYDROcodone/APAP 5 MG/325 MG (LORTAB) TAB PO ONE (21:45)
[2019-08-10 21:57] VITALS: BP 149/90
== END 2019-08-10 21:59 | disposition home or self-care (01) ==
LOC: EDUNIT# 18:39 → ER 18:40
DX: K80.20 Calculus of gallbladder without cholecystitis without obstruction (principal); N39.0 Urinary tract infection, site not specified; F41.9 Anxiety disorder, unspecified; F32.9 Major depressive disorder, single episode, unspecified; Z90.89 Acquired absence of other organs; Z98.51 Tubal ligation status
CPT/HCPCS: 36415; 80053; 81000; 83690; 85025; 87088; 96374; 96375

== ENCOUNTER 2019-08-15 11:51 | Outpatient (CLI) | payer BC ==
[~2019-08-15] VITALS: Ht 172 cm; Wt 102.0 kg
[2019-08-15] MEDS ORDERED: FAMO-119 PO (11:57)
[2019-08-15] MEDS ORDERED: CYAN250010 PO (11:57)
[2019-08-15] MEDS ORDERED: FOLI1TAB24 PO (11:57)
[2019-08-15] MEDS ORDERED: LISI40TA PO (11:57)
[2019-08-16] MEDS ORDERED: HYDR-3816 PO (08:23)
== END 2019-08-15 12:10 | disposition home or self-care (01) ==
LOC: PREOP 11:51
PROVIDERS: ATTEND Surgery
DX: Z01.818 Encounter for other preprocedural examination (principal)

== ENCOUNTER → 2019-08-17 | Outpatient (CLI) | payer BC ==
[~2019-08-17] MED LIST changes: +CYAN250010 PO; +FAMO-119 PO; +FOLI1TAB24 PO; +HYDR-3816 PO; +LISI40TA PO
--- NOTE | 2019-08-17 09:40 | Diagnostic Imaging Report ---
EXAM: CT IAC (VIDEO EDITOR AUDIT CANAL) WO INDICATION: Left auditory ossicle prosthesis. COMPARISON: None. 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 This appears to articulate normally with the left incus. The tympanic membrane appears discontinuous superiorly and anteriorly. No fluid or soft tissue attenuation within the left middle ear. Normal alignment of the right auditory ossicles. No right middle air or fluid or soft tissue attenuation. The EACs are clear bilaterally. The mastoids are clear. Normal morphology of the cochleas, IACs, vestibular aqueducts and semicircular canals bilaterally. Normal course of the facial nerves. The jugular bulbs are unremarkable. Skull base is intact. Normal alignment of the temporomandibular joints. Minimal mucosal thickening in the partially visualized right maxillary sinus. IMPRESSION: 1. Left stapes prosthesis appears to articulate normal with the auditory ossicles. 2. The left tympanic membrane appears discontinuous anteriorly. 3. Negative right temporal bone. Dictated by: Dictated on workstation # [id number]
== END ==
LOC: RAD 07:33
PROVIDERS: ATTEND Otolaryngology
DX: H66.92 Otitis media, unspecified, left ear (principal); Z96.29 Presence of other otological and audiological implants
CPT/HCPCS: 70480

== ENCOUNTER → 2019-12-28 | Outpatient (CLI) | payer BC ==
[~2019-12-28] MED LIST changes: +HYDR-34 PO; -HYDR-3816 PO
--- NOTE | 2019-12-28 10:32 | Diagnostic Imaging Report ---
INDICATION: Routine screening. Comparison is made with prior mammogram from 05/16/2018 and 05/14/2015. 2-D and 3-D bilateral screening mammography was performed with a Computer Aided Detection (CAD) system. 3-D tomosynthesis was also performed and reviewed. FINDINGS: Scattered fibroglandular densities are identified bilaterally. Benign nodular densities both breasts are stable. No new mass or malignant appearing microcalcifications are seen. Axillae are unremarkable. IMPRESSION: No mammographic features suspicious for malignancy are identified. ACR BI-RADS Category 2: Benign findings. Result letter will be mailed to the patient. Note: At least 10% of breast cancer is not imaged by mammography. Dictated by: Dictated on workstation # [id number]
== END ==
LOC: RAD 08:57
PROVIDERS: ATTEND Family Medicine
DX: Z12.31 Encounter for screening mammogram for malignant neoplasm of breast (principal)
CPT/HCPCS: 77067

== ENCOUNTER → 2020-01-04 | Outpatient (CLI) | payer BC | LOC: LAB 16:12 | PROVIDERS: ATTEND Nurse Practitioner Family | DX: R50.9 Fever, unspecified (principal) | CPT/HCPCS: 87804 ==

== ENCOUNTER → 2021-06-09 | Outpatient (CLI) | payer BC ==
[~2021-06-09] MED LIST changes: -CALC600T12 PO; +CALC600T91 PO; +ESCI20TA39 PO; -ESCI20TA45 PO; -FOLI1TAB24 PO; +FOLI1TAB33 PO; -LISI10TA2 PO; +LISI10TA25 PO; -LISI40TA PO; +LISI40TA9 PO; -SULF1TAB35 PO; +SULF1TAB38 PO
--- NOTE | 2021-06-09 11:14 | Diagnostic Imaging Report ---
Indication: Bilateral hip pain. Comparison: None Findings: Single view of the pelvis, AP and oblique views of both hips demonstrate gest-ua-ughdzfau degenerative joint disease. There is no fracture or dislocation. No osseous lesion. Impression: Degenerative joint disease. Dictated by: Dictated on workstation # [id number]
--- NOTE | 2021-06-09 11:14 | Diagnostic Imaging Report ---
Indication: Hip and sacrum pain. Comparison: None Findings: 3 views of the sacrum and coccyx demonstrate normal alignment. There is no osseous lesion or fracture. The SI joints are symmetric. Impression: Negative sacrum and coccyx. Dictated by: Dictated on workstation # [id number]
== END ==
LOC: RAD 10:42
PROVIDERS: ATTEND Family Medicine
DX: M16.11 Unilateral primary osteoarthritis, right hip (principal); M16.12 Unilateral primary osteoarthritis, left hip
CPT/HCPCS: 72220; 73523

== ENCOUNTER → 2021-08-04 | Outpatient (CLI) | payer MEDICARE ==
--- NOTE | 2021-08-04 15:37 | Diagnostic Imaging Report ---
EXAMINATION: Digital mammogram bilateral screening with CAD. INDICATION: Screening. COMPARISON: This study was compared to the prior exam of 12/28/2019, 05/16/2018, and 05/14/2015. At this time, there are no current complaints. FINDINGS: There are scattered fibroglandular densities in both breasts which could obscure a lesion. Overall, there does not appear to have been any significant change when compared to the prior exam. No primary or secondary sign of malignancy is noted. IMPRESSION: There is no radiographic evidence for malignancy. ACR BI-RADS Category 1: Negative. Result letter will be mailed to the patient. Note: At least 10% of breast cancer is not imaged by mammography. Dictated by: Dictated on workstation # [id number]
== END ==
LOC: RAD 08:15
PROVIDERS: ATTEND Nurse Practitioner Family
DX: Z12.31 Encounter for screening mammogram for malignant neoplasm of breast (principal)
CPT/HCPCS: 77063; 77067

== ENCOUNTER 2021-09-24 10:09 | Outpatient (CLI) | payer MEDICARE ==
[~2021-09-24] VITALS: Ht 172.7 cm; Wt 91.2 kg
== END 2021-09-25 09:11 | disposition home or self-care (01) ==
LOC: PREOP 10:09
PROVIDERS: ATTEND Surgery
DX: Z01.818 Encounter for other preprocedural examination (principal)

== ENCOUNTER 2021-09-30 11:52 | Day surgery (SDC) | payer MEDICARE ==
[~2021-09-30] VITALS: Ht 172.7 cm; Wt 91.2 kg
[2021-09-30] MEDS ORDERED: LACTATED RINGERS 1,000 ML IV STA (11:57)
[2021-09-30] MEDS ORDERED: LACTATED RINGERS 1,000 ML IV ONE (11:59)
[2021-09-30] MEDS ORDERED: LIDOCAINE JELLY 2% 6 ML SYRINGE MM PRN (12:00)
[2021-09-30 12:20] VITALS: BP 121/67
[2021-09-30] MEDS ORDERED: PROPOFOL INJECTION 50 ML IV ONE (12:56)
[2021-09-30] MEDS ORDERED: ONDANSETRON 4 MG (ZOFRAN) ORAL DISSOLVE TAB PO PRN (13:00)
[2021-09-30] MEDS ORDERED: ONDANSETRON 4 MG/2 ML (SDV) Z0FRAN IVP PRN (13:00)
--- NOTE | 2021-09-30 13:00 | Progress Note-Pre Operative ---
Pre-Operative Progress Note H&P Reviewed The H&P was reviewed, patient examined and no changes noted. Date Seen by Provider: Sep 30, 2021 Time Seen by Provider: 12:30 Date H&P Reviewed: Sep 30, 2021 Time H&P Reviewed: 12:30 Pre-Operative Diagnosis: screening JACQUELINE Saenz MD Sep 30, 2021 12:59
--- NOTE | 2021-09-30 13:01 | Discharge Inst-Surgical ---
D/C Lap Instructions-FREDY Follow Up Activity as tolerated High Fiber Diet 25g or more per day Avoid Alcohol, Caffeine, Spicy [place] and Acid foods. Drink 64 fluid oz or more of fluids per day. Symptoms to Report: Fever over 101 degree F, Nausea/Vomiting If any problems/questions: Contact your physician or go to Emergency Room JACQUELINE DANIEL MD Sep 30, 2021 13:01
[2021-09-30] MEDS ORDERED: proPOfol 200 MG/20 ML (DIPRIVAN) VIAL IV ONE (13:27)
[2021-09-30 13:45] VITALS: BP 95/55
--- NOTE | 2021-09-30 13:47 | Progress Note-Post Operative ---
Post-Operative Progess Note Surgeon (s)/Regulatory Compliance Officer (s) Surgeon JACQUELINE DANIEL MD Regulatory Compliance Officer: none Pre-Operative Diagnosis screening colo Post-Operative Diagnosis mild chronic stage 2 ext and int hemorrhoids. Procedure & Operative Findings Date of Procedure 09/30/21 Procedure Performed/Findings colonoscopy Anesthesia Type mac Estimated Blood Loss Estimated blood loss (mL): minimal Specimens/Packing Specimens Removed none JACQUELINE DANIEL MD Sep 30, 2021 13:47
[2021-09-30 13:50] VITALS: BP 91/55
[2021-09-30 14:05] VITALS: BP 102/57
[2021-09-30 14:15] VITALS: BP 91/55
--- NOTE | 2021-09-30 14:41 | Anesthesia-General Post-Op ---
General Patient Condition Mental Status/LOC: Same as Preop Cardiovascular: Satisfactory Nausea/Vomiting: Absent Respiratory: Satisfactory Pain: Controlled Complications: Absent Post Op Complications Complications None Follow Up Care/Instructions Patient Instructions None needed. Anesthesia/Patient Condition Patient Condition Patient is doing well, no complaints, stable vital signs, no apparent adverse anesthesia problems. No complications reported per nursing. RHIANNA ROBLES CRNA Sep 30, 2021 14:41
--- NOTE | 2021-09-30 22:42 | OPERATIVE REPORT ---
DATE OF SERVICE: PREOPERATIVE DIAGNOSIS: Screening colonoscopy. POSTOPERATIVE DIAGNOSES: Mild chronic stage 2 external and internal hemorrhoids. PROCEDURE: Colonoscopy. SURGEON: Jacqueline Daniel MD. ANESTHESIA: Monitored anesthesia care. ESTIMATED BLOOD LOSS: Minimal. FINDINGS: Mild chronic stage 2 external and internal hemorrhoids. DISPOSITION: The patient tolerated the procedure well. INDICATIONS: The patient is a 66-year-old female in need of a screening colonoscopy. Her last colonoscopy was 10 years ago and she believes this to be normal. She states that she is otherwise doing well, does not report any major issues with diarrhea nor constipation as well as no red blood per rectum nor any dark tarry stools. She also does not report any family history of colon cancer. DESCRIPTION OF PROCEDURE: The patient was brought to the endoscopy suite, laid in the left lateral decubitus position. After adequate IV pain and sedative medications and monitored anesthesia care, chronic stage two external and internal hemorrhoids identified not actively edematous nor inflamed and no bleeding. Normal sphincter tone was felt and there were no palpable masses. The endoscope was then intubated and anus and rectum gently insufflated. The endoscope was then advanced through the valves of Fortune of the rectum with no polyps or any neoplasms identified. We then proceeded through the sigmoid, ascending colon to the cecum, which were normal. There were no polyps or any neoplasms identified throughout the colon or rectum. The endoscope was then slowly withdrawn while taking a second look and suctioning of residual air with no additional findings. The patient tolerated the procedure well. We will recommend continued medical management with a high fiber diet with incorporation of a fiber supplement, which should equal or exceed 25 grams daily as well as significant amounts of water to promote soft stools on a daily basis. If she is asymptomatic, she does not need another colonoscopy for another 10 years. Job ID: [id number] DocumentID: [id number] Dictated Date: 09/30/2021 13:44:52 Assistant Guest Services Manager Date: 09/30/2021 18:31:28 Dictated By: JACQUELINE DANIEL MD [facility]
== END 2021-09-30 14:15 | disposition home or self-care (01) ==
LOC: ENDO 11:52
PROVIDERS: ATTEND Surgery
DX: Z12.11 Encounter for screening for malignant neoplasm of colon (principal); K64.1 Second degree hemorrhoids; I10 Essential (primary) hypertension; F32.A Depression, unspecified; F41.9 Anxiety disorder, unspecified; K21.9 Gastro-esophageal reflux disease without esophagitis; Z79.899 Other long term (current) drug therapy

== ENCOUNTER → 2021-11-18 | Outpatient (CLI) | payer MEDICARE ==
[2021-11-18 15:28] LABS: HEMATOCRIT 35 % (35-52); HEMOGLOBIN 11.8 g/dL (11.5-16.0); MEAN CORPUSCULAR HEMOGLOBIN 31 pg (25-34); MEAN CORPUSCULAR HGB CONC 34 g/dL (32-36); MEAN CORPUSCULAR VOLUME 91 fL (80-99); MEAN PLATELET VOLUME 8.7 fL (9.0-12.2); PLATELET COUNT 374 10^3/uL (130-400); WHITE BLOOD COUNT 5.1 10^3/uL (4.3-11.0)
--- NOTE | 2021-11-18 15:34 | Diagnostic Imaging Report ---
INDICATION: Severe new onset headache. EXAMINATION: CT brain without contrast on 11/18/2021. COMPARISON: 04/29/2019. FINDINGS: There is no evidence for acute hemorrhage or infarct. There is no mass, mass effect, midline shift, or hydrocephalus. The paranasal sinuses and mastoid air cells demonstrate no acute abnormality. IMPRESSION: No acute intracranial process. Dictated by: Dictated on workstation # [id number]
[2021-11-18 15:46] LABS: ERYTHROCYTE SEDIMENTATION RATE 31 MM/HR (0-30)
[2021-11-18 15:52] LABS: ALBUMIN 4.1 GM/DL (3.2-4.5); BILIRUBIN,TOTAL 0.6 MG/DL (0.1-1.0); CALCIUM 10.7 MG/DL (8.5-10.1); CREATININE SERUM 1.01 MG/DL (0.60-1.30); POTASSIUM 3.8 MMOL/L (3.6-5.0); TOTAL PROTEIN 7.5 GM/DL (6.4-8.2)
== END ==
LOC: LAB 14:32
PROVIDERS: ATTEND Nurse Practitioner Family
DX: D64.9 Anemia, unspecified (principal); G43.109 Migraine with aura, not intractable, without status migrainosus
CPT/HCPCS: 36415; 70450; 80053; 82306; 82728; 83540; 83550; 83970; 84443; 85027; 85610; 85652; 86141

== ENCOUNTER → 2021-11-23 | Outpatient (CLI) | payer MEDICARE ==
[~2021-11-23] MED LIST changes: +GADOTERATE 0.5 MMOL/ML (CLARISCAN) 20 ML VIAL IV ONE
--- NOTE | 2021-11-23 09:03 | Diagnostic Imaging Report ---
Clinical indications: Patient having migraine headaches. Exam: MRI of the brain performed without and with 16 cc of Clariscan IV contrast. Sequences include axial DWI, ADC map, axial gradient echo, axial T2, axial FLAIR, axial T1, axial T1 post IV contrast, coronal T1 fat-sat post IV contrast, and sagittal T1 post IV contrast. Comparison: Head CT without contrast dated 11/18/2021. Findings: There is no evidence of acute cerebral infarct, intracranial hemorrhage, or gross mass effect. There is no abnormal IV contrast enhancement. The brain parenchymal volume appears appropriate for patient's age. There are multiple focal areas of high T2 signal white matter changes involving both cerebral hemispheres and mild patchy areas in the periventricular regions and lucille, likely related to chronic small vessel ischemic disease. There is normal smalls-white matter distinction. There is no significant midline shift or herniation. There is no evidence of hydrocephalus. The basal cisterns are unremarkable. The skull, extracranial soft tissue, and orbits are unremarkable. There is minimal mucosal thickening involving both maxillary sinuses and ethmoid sinus. There is minimal amount of fluid in both mastoid air cells. IMPRESSION: 1: Mild age-related brain parenchymal changes with no evidence of acute intracranial process. There is no abnormal IV contrast enhancement. 2: There is mild chronic small vessel ischemic disease. 3: Mild paranasal sinus disease and minimal fluid in both mastoid air cells. Dictated by: Dictated on workstation # [id number]
== END ==
LOC: RAD 08:45
PROVIDERS: ATTEND Nurse Practitioner Family
DX: G31.1 Senile degeneration of brain, not elsewhere classified (principal); I67.82 Cerebral ischemia; J34.9 Unspecified disorder of nose and nasal sinuses
CPT/HCPCS: 70553

== ENCOUNTER → 2022-01-19 | Outpatient (CLI) | payer MEDICARE ==
[~2022-01-19] MED LIST changes: -GADOTERATE 0.5 MMOL/ML (CLARISCAN) 20 ML VIAL IV ONE
--- NOTE | 2022-01-19 09:41 | Diagnostic Imaging Report ---
INDICATION: Postmenopausal screening COMPARISON: Baseline FINDINGS: AP Spine L1-L4: [BMD (g/cm2): 1.489] [T-Score: 2.4] [Z-Score: 3.1] [BMD Previous: na] [BMD % Change: na] LT Hip Neck: [BMD (g/cm2): 0.957] [T-Score: -0.6] [Z-Score: 0.3] LT Hip Total: [BMD (g/cm2):0.932] [T-Score:-0.6] [Z-Score: 0.0] [BMD Previous: na] [BMD % Change: na] RT Hip Neck: [BMD (g/cm2):1.038] [T-Score:0.0] [Z-Score:0.9] RT Hip Total: [BMD (g/cm2):0.988] [T-score:-0.2] [Z-Score:0.4] [BMD Previous:na] [BMD % Change:na] *Indicates significant change from prior examination based on 95% confidence level. World Health Organization criteria for BMD interpretation classify patients as Normal (T-score at or above -1.0), Osteopenic (T-score between -1.0 and -2.5) or Osteoporotic (T-score at or below -2.5). LIMITATIONS AND MODIFICATION: None. FRACTURE RISK (FRAX SCORE): The ten year probability of (%): Major Osteoporotic Fracture: [na] Hip Fracture: [na] IMPRESSION: 1. Normal bone mineral density. 2. Baseline examination. 3. See below National Osteoporosis Foundation guidelines on when to potentially initiate pharmacologic therapy. Based on the National Osteoporosis Foundation Guidelines, pharmacologic treatment should be initiated in any of the following, unless clinical conditions suggest otherwise: * Any patient with prior fragility fracture of the hip or vertebrae. A spine fracture indicates 5X risk for subsequent spine fracture and 2X risk for subsequent hip fracture. * Osteoporosis (T-score <-2.5). * Postmenopausal women and men age 50 and older with low bone mass/osteopenia (T-score between -1.0 and -2.5) by DXA and 10-year major osteoporotic fracture greater than 20% or a 10-year probability of hip fracture greater than 3%. These fracture risks are supplied above in the FRAX score, if applicable. * Clinician judgement and/or patient preferences may indicate treatment for people with 10-year fracture probabilities above or below these levels. Dictated by: Dictated on workstation # [id number]
== END ==
LOC: RAD 08:43
PROVIDERS: ATTEND Nurse Practitioner Family
DX: Z13.820 Encounter for screening for osteoporosis (principal); Z78.0 Asymptomatic menopausal state
CPT/HCPCS: 77080

== ENCOUNTER → 2022-04-05 | Outpatient (CLI) | payer MEDICARE ==
--- NOTE | 2022-04-05 14:38 | Diagnostic Imaging Report ---
EXAM: MRI sacrum and sacroiliac joints without contrast. DATE: April 05, 2022. INDICATION: 67-year-old female, sacral and hip pain. COMPARISON: Radiographs June 09, 2021. TECHNIQUE: Multiple noncontrast MRI sequences of the sacrum and sacroiliac joints were obtained. FINDINGS: The sacroiliac joint spaces are well preserved. There is no ankylosis across either sacroiliac joint or abnormal marrow signal adjacent to either sacroiliac joint. There is no sacroiliac joint effusion. There is no identified sacral fracture or otherwise identified fracture in the included [id number]. There is no identified bone lesion. There is severe disc height loss at L5-S1. Please see the separately dictated MRI lumbar spine report for detailed evaluation of the lumbar spine. IMPRESSION: 1. Unremarkable MRI of the sacrum and sacroiliac joints. 2. Please see the separately dictated MRI lumbar spine report for evaluation of the lumbar spine. Dictated by: Dictated on workstation # [id number]
--- NOTE | 2022-04-05 16:09 | Diagnostic Imaging Report ---
PROCEDURE: MRI lumbar spine. TECHNIQUE: Multiplanar, multisequence MRI of the lumbar spine was performed without contrast. INDICATION: Tailbone and bilateral hip pain. COMPARISON: MRI pelvis from same day FINDINGS: For the purposes of this exam, last well-formed disc space is noted the L5-S1 level. Evaluation static alignment shows slight grade 1 retrolisthesis at L5-S1. There is no evidence of jumped facets. Vertebral body heights are maintained. There is no acute fracture. Marrow signal is normal throughout. Note is made of mild multilevel intervertebral disc height loss, greatest at the L4-L5 and L5-S1 levels. There is also mild multilevel anterior posterior disc bulging. Visualized portions of distal cord are unremarkable. Conus terminates at approximately the L1-L2 level. No abnormal intrathecal filling defects are seen. Pre and paravertebral soft tissue structures are unremarkable. Axial images demonstrate the following: T12-L1 through L2-L3: There is no large disc bulge or focal protrusion. There is no significant spinal canal or neuroforaminal stenosis. L3-L4: There is broad-based posterior disc bulge and bilateral ligamentum flavum laxity and facet arthropathy. As result, there is mild narrowing of the spinal canal and bilateral neural foramen. L4-L5: There is broad-based posterior disc bulge and bilateral ligamentum flavum laxity and facet arthropathy. As a result, there is minimal effacement of the anterior thecal sac and minimal narrowing of bilateral neural foramen. L5-S1: There is bilateral endplate osteophyte formation and bilateral facet arthropathy. As result, there is mild/moderate narrowing of bilateral neural foramen. Spinal canal is unremarkable. IMPRESSION: 1. No acute fracture or dislocation of the lumbar spine. 2. Mild multilevel degenerative changes, but no significant spinal canal or neuroforaminal stenosis. Dictated by: Dictated on workstation # [id number]
== END ==
LOC: RAD 12:30
PROVIDERS: ATTEND Nurse Practitioner Family
DX: M25.551 Pain in right hip (principal); M53.3 Sacrococcygeal disorders, not elsewhere classified
CPT/HCPCS: 72148; 72195

== ENCOUNTER 2022-04-07 11:50 | Outpatient (RCR) | payer MEDICARE ==
[2022-03-31] MEDS: FERRIC CARBOXYMALTOSE INJ 750 MG in NS (IVPB) 250 ML IV SCH (12:13)
[2022-03-31 12:55] VITALS: BP 148/75
[~2022-04-07] VITALS: Ht 172 cm; Wt 91.2 kg
[2022-04-07 12:00] VITALS: BP 134/78
[2022-04-07] MEDS: FERRIC CARBOXYMALTOSE INJ 750 MG in NS (IVPB) 250 ML IV SCH (12:00)
== END 2022-04-15 | disposition home or self-care (01) ==
LOC: SDC 11:50
PROVIDERS: ATTEND Nurse Practitioner Family
DX: D50.9 Iron deficiency anemia, unspecified (principal)
CPT/HCPCS: 96365

== ENCOUNTER → 2022-04-08 | Outpatient (CLI) | payer MEDICARE ==
--- NOTE | 2022-04-08 18:04 | Diagnostic Imaging Report ---
PROCEDURE: MRI left joint lower extremity without contrast. TECHNIQUE: Multiplanar, multisequence [id number] MRI of the left lower extremity was accomplished. INDICATION: Left hip pain. COMPARISON: MRI of the right hip performed concurrently. MRI of the sacrum and coccyx from 04/05/2022. FINDINGS: Left Hip: No hip effusion. There are multiple sites of high-grade partial- and full-thickness articular cartilage loss throughout the hip that are degenerative in nature. Subchondral cystic change is present in the anterior aspect of the acetabulum, also degenerative in nature. No paralabral cyst. There is T2 hyperintense signal within the acetabular labrum compatible with degenerative type tearing. Bones: No avascular necrosis of the femoral heads. No bone marrow edema in the pelvis or proximal femurs that would suggest stress reaction. Muscles and Tendons: The left gluteus medius and minimus insertions are intact with mild tendinopathy. No peritrochanteric fluid collection. Left distal iliopsoas tendon and proximal hamstring complexes are intact. No abnormality of the left adductor musculature. Other: No free pelvic fluid. No pelvic or inguinal lymphadenopathy. IMPRESSION: 1. Moderate degenerative arthritis of the left hip with multiple sites of partial- and full-thickness articular cartilage loss. 2. There is associated degenerative tearing within the acetabular labrum. 3. No acute muscle strain or tendon tear. Dictated by: Dictated on workstation # [id number]
--- NOTE | 2022-04-08 18:40 | Diagnostic Imaging Report ---
EXAMINATION: Magnetic resonance imaging of the pelvis and right hip without contrast DATE: April 08, 2022. COMPARISON: MRI sacrum and sacroiliac joints April 05, 2022. Radiographs June 09, 2021. INDICATION: 67-year-old female, hip and pelvic pain. TECHNIQUE: Magnetic Resonance Imaging sequences were performed of the pelvis and right hip without contrast. TENDONS AND MUSCLES: The gluteus elier muscles and their origins and insertions are intact, bilaterally. The tendons and muscles of the greater trochanter - gluteus minimus, piriformis and gluteus medius - are intact, bilaterally. Both common hamstring attachments on the ischial tuberosities are intact and the extensor muscles of the thigh are intact. The visualized portions of the flexors and adductor muscles of the thigh and their attachments on the pelvis and hips are intact. Both iliopsoas and iliacus muscles are intact. The bilateral iliopsoas tendons are intact. HIPS AND SACROILIAC JOINTS: There is a paralabral cyst adjacent to the right hip anterior superior labrum which measures 19 x 8 x 17 mm in size consistent with an adjacent labral tear. There is also subchondral cystic change in the right acetabulum at this location. There is a 6 trace to small right hip joint effusion. There is subchondral cystic change in the left anterior acetabulum. There is no clearly identified fluid-filled labral tear or paralabral cyst of the left hip on large field of view assessment. There is no pronounced joint space loss of either hip. The sacroiliac joints are unremarkable. LUMBAR SPINE: There is severe disc height loss at L5-S1. There is otherwise unremarkable evaluation of the lumbar spine. BONE: The bones all have normal configuration. The bone marrow signal is within normal limits. Specifically, negative for fracture, osteomyelitis, osteonecrosis, or marrow replacing process. BURSAE AND SOFT TISSUES: The bursae and soft tissues surrounding the pelvis and hips are within normal limits. IMPRESSION: 1. Tear of the right hip anterosuperior labrum with associated multiloculated paralabral cyst. Trace to small right hip joint effusion. Mild osteoarthritis of both hips. 2. No acute fracture, bone contusion or evidence of osteonecrosis. 3. Intact muscles and tendons. 4. Severe disc height loss at L5-S1. Dictated by: Dictated on workstation # [id number]
== END ==
LOC: RAD 14:00
PROVIDERS: ATTEND Nurse Practitioner Family
DX: S73.192A Other sprain of left hip, initial encounter (principal); M16.12 Unilateral primary osteoarthritis, left hip
CPT/HCPCS: 73721

== ENCOUNTER → 2022-08-05 | Outpatient (CLI) | payer MEDICARE ==
--- NOTE | 2022-08-05 11:59 | Diagnostic Imaging Report ---
Indication: Routine screening. Comparison is made with prior mammograms from 08/04/2021 and 12/28/2019. 2-D and 3-D bilateral screening mammography was performed with CAD. Scattered fibroglandular densities are identified bilaterally. Benign nodules outer right breast are stable. No spiculated mass or malignant-appearing microcalcifications are seen. Axillae are unremarkable. IMPRESSION: BI-RADS Category 2 No mammographic features suspicious for malignancy are identified. ACR BI-RADS Category 2: Benign findings. Result letter will be mailed to the patient. Note: At least 10% of breast cancer is not imaged by mammography. Dictated by: Dictated on workstation # [id number]
== END ==
LOC: RAD 07:41
PROVIDERS: ATTEND Family Medicine
DX: Z12.31 Encounter for screening mammogram for malignant neoplasm of breast (principal)
CPT/HCPCS: 77063; 77067

== ENCOUNTER → 2023-08-08 | Outpatient (CLI) | payer MEDICARE ==
--- NOTE | 2023-08-08 12:28 | Diagnostic Imaging Report ---
INDICATION: Routine screening. COMPARISON: 08/05/2022 and 08/04/2021. TECHNIQUE: 2D and 3D bilateral screening mammography was performed with CAD. FINDINGS: Scattered fibroglandular densities are identified bilaterally. Benign nodules in both breasts are stable. No new mass or malignant-appearing microcalcifications are seen. The axillae are unremarkable. IMPRESSION: No mammographic features suspicious for malignancy are identified. ACR BI-RADS Category 2: Benign findings. Result letter will be mailed to the patient. Note: At least 10% of breast cancer is not imaged by mammography. Dictated by: Dictated on workstation # [id number]
== END ==
LOC: RAD 09:15
PROVIDERS: ATTEND Nurse Practitioner Family
DX: Z12.31 Encounter for screening mammogram for malignant neoplasm of breast (principal)
CPT/HCPCS: 77063; 77067

== ENCOUNTER → 2023-08-22 | Outpatient (CLI) | payer MEDICARE ==
--- NOTE | 2023-08-22 17:14 | Diagnostic Imaging Report ---
EXAMINATION: Left ankle radiograph EXAM DATE: 08/22/2023 3:46 PM COMPARISON: None available. HISTORY: Left ankle pain TECHNIQUE: 3 views FINDINGS: There is no acute fracture, dislocation, or destructive osseous process. The joint spaces are normal. The soft tissues are normal. IMPRESSION: 1. No acute osseous abnormality. Dictated by: Dictated on workstation # [id number]
--- NOTE | 2023-08-22 18:12 | Diagnostic Imaging Report ---
EXAMINATION: Left tibia and fibula radiograph EXAM DATE: 08/22/2023 3:46 PM COMPARISON: None available. HISTORY: Left leg pain. TECHNIQUE: Two views FINDINGS: There is no acute fracture, dislocation, or destructive osseous process. The joint spaces are normal. The soft tissues are normal. IMPRESSION: 1. No acute osseous abnormality. Dictated by: Dictated on workstation # [id number]
--- NOTE | 2023-08-22 19:21 | Diagnostic Imaging Report ---
EXAMINATION: Left knee 3 views HISTORY: Leg pain COMPARISON: 01/26/2015 FINDINGS: There is a moderate knee joint effusion. There is mild tricompartmental osteoarthritis. No acute fracture is seen. IMPRESSION: 1. Moderate left knee effusion with mild tricompartmental osteoarthritis. Dictated by: Dictated on workstation # [id number]
== END ==
LOC: RAD 15:27
PROVIDERS: ATTEND Nurse Practitioner Family
DX: M17.12 Unilateral primary osteoarthritis, left knee (principal); M25.561 Pain in right knee; M79.605 Pain in left leg; M25.572 Pain in left ankle and joints of left foot
CPT/HCPCS: 73562; 73590; 73610

== ENCOUNTER → 2023-09-06 | Outpatient (CLI) | payer MEDICARE | LOC: WOUNDCARE 13:00 | PROVIDERS: ATTEND Family Medicine | DX: I96 Gangrene, not elsewhere classified (principal); L97.222 Non-pressure chronic ulcer of left calf with fat layer exposed; L03.116 Cellulitis of left lower limb; R60.0 Localized edema; V86.55XA Driver of 3- or 4- wheeled all-terrain vehicle (ATV) injured in nontraffic accident, initial encounter | CPT/HCPCS: 11042; A6260; G0463 ==

== ENCOUNTER → 2023-09-20 | Outpatient (CLI) | payer MEDICARE | LOC: WOUNDCARE 08:41 | PROVIDERS: ATTEND Family Medicine | DX: I96 Gangrene, not elsewhere classified (principal); L97.222 Non-pressure chronic ulcer of left calf with fat layer exposed; R60.0 Localized edema; V86.55XA Driver of 3- or 4- wheeled all-terrain vehicle (ATV) injured in nontraffic accident, initial encounter | CPT/HCPCS: 11042; 11045; 87070; 87205; G0463; 87077 ==

== ENCOUNTER → 2023-09-20 | Outpatient (CLI) | payer MEDICARE ==
--- NOTE | 2023-09-20 12:58 | Diagnostic Imaging Report ---
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 COMPARISON: None available. TECHNIQUE: Doppler Duplex ultrasound was performed of the large arterial structures of the left lower extremity dated 09/20/2023. FINDINGS: Triphasic waveforms with brisk upstrokes are identified throughout the large arterial structures of the left lower extremity including extending into the left common femoral artery through the arteries of the left calf. No focally increased velocities. IMPRESSION: No evidence of hemodynamically significant stenosis or occlusion involving the large arterial structures of the left lower extremity. Dictated by: Dictated on workstation # [id number]
== END ==
LOC: RAD 08:00
PROVIDERS: ATTEND Family Medicine
DX: L97.222 Non-pressure chronic ulcer of left calf with fat layer exposed (principal); R60.0 Localized edema; V86.55XA Driver of 3- or 4- wheeled all-terrain vehicle (ATV) injured in nontraffic accident, initial encounter
CPT/HCPCS: 93926

== ENCOUNTER → 2023-09-26 | Outpatient (CLI) | payer MEDICARE | LOC: WOUNDCARE 10:58 | PROVIDERS: ATTEND Family Medicine | DX: I96 Gangrene, not elsewhere classified (principal); L97.222 Non-pressure chronic ulcer of left calf with fat layer exposed; R60.0 Localized edema; B96.5 Pseudomonas (aeruginosa) (mallei) (pseudomallei) as the cause of diseases classified elsewhere; V86.55XA Driver of 3- or 4- wheeled all-terrain vehicle (ATV) injured in nontraffic accident, initial encounter | CPT/HCPCS: 11042; 11045; 97606; G0463 ==